=== PATIENT | female | born 1940 | race Caucasian/White ===

== ENCOUNTER → 2018-06-29 12:56 | Outpatient (CLI) | payer MEDICARE, OTHER, SELFPAY ==
--- NOTE | 2018-06-29 12:58 | BI_ITS ---
MAMMOGRAPHY - BILATERAL SCREENING 3-D SAEED SYNTHESIS REASON FOR EXAM: Female, 77 years old. Bilateral Screening 3-D tomosynthesis PERTINENT HISTORY: 2 left breast biopsies near nipple, negative. Patient complains of tenderness left upper inner quadrant breast for 3 years, marked today with BB. Family breast carcinoma, paternal grandmother approximate age 80. TECHNIQUE: 2-D mammograms and 3-D Saeed synthesis of the breast (s) were performed. CAD was performed. COMPARISON: 06/27/2017 through 04/14/2015. FINDINGS: The breast composition is almost entirely fat. No new asymmetric density, dominant mass, dense spiculated masses, abnormal clustered microcalcifications, architectural distortion, skin thickening or nipple retraction identified. Coarse benign-appearing calcifications. No new abnormality identified with tomosynthesis. There has been no significant change since the prior study. BI/SCREENING MAMM (CAD), BILAT IMPRESSION: No mammographic signs of malignancy. Routine yearly mammograms recommended. ASSESSMENT CATEGORY: BIRADS Category 2: Benign. A letter regarding these results will be sent to the patient by the facility within 30 days. FOLLOW UP RECOMMENDATION: Yearly follow up mammogram recommended. (A) Negative results should not deter biopsy as a palpable lesion should be followed on clinical grounds and biopsy performed if clinically persistent for 3 months or increasing size. Approximately 10% of breast cancers are not detected by mammography. A normal mammogram should not delay biopsy of a clinically suspicious abnormality. . Electronically Signed: Doni Hawley, at 22:37 EDT Tel , Service support ,
== END ==
PROVIDERS: Family Provider Family Medicine; PCP Family Medicine; Visit Provider Family Medicine
DX: Z12.31 Encounter for screening mammogram for malignant neoplasm of breast (principal)
CPT/HCPCS: 77063; 77067

== ENCOUNTER → 2018-08-27 08:26 | Outpatient (CLI) | payer MEDICARE, OTHER, SELFPAY ==
[2018-08-27 12:39] LABS: Absolute Lymphocyte Count 1.68 X10^3/ul (0.83-4.51); Absolute Neutrophil Count 2.1 X10^3/uL (2.0-7.7); Basophil# 0.04 X10^3/uL; Basophil% 0.9 % (0-1); Eosinophil# 0.19 X10^3/uL; Eosinophils% 4.2 % (0-5); Hematocrit 41.6 % (37-47); Hemoglobin 13.8 g/dl (12.0-15.0); Lymphocyte # 1.68 X10^3/ul (4.0); Lymphocyte % 36.9 % (19-41); Mean Corp Hgb Conc 33.2 g/gl (32-36); Mean Corpuscular Hgb 29.9 pg (27.0-32.0); Mean Corpuscular Volume 90.2 fL (81-99); Mean Platelet Vol. 10.4 fl (6.2-12.0); Monocyte# 0.55 X10^3/uL; Monocyte% 12.1 % (0-10); Neutrophil # 2.08 X10^3/uL (2.7-7.7); Neutrophil % 45.7 % (47-70); Platelet Count 195 K/mm3 (150-450); RBC Distribution Width CV 14.1 % (11.6-14.6); RBC Distribution Width SD 46.3 fl (35.1-43.9); Red Blood Count 4.61 M/mm3 (4.2-5.4); White Blood Count 4.6 K/mm3 (4.4-11.0)
[2018-08-27 12:50] LABS: POSITIVE COUNT NO; POSITIVE DIFFERENTIAL NO; POSITIVE MORPHOLOGY NO
[2018-08-27 12:56] LABS: ALB/GLOB Ratio 0.8 RATIO (0.9-2.4); AST(SGOT) 33 U/L (15-37); Alanine Aminotransfer ALT/SGPT 49 U/L (13-56); Albumin, Serum 3.4 g/dL (3.2-5.0); Alkaline Phosphatase 77 U/L (45-117); Anion Gap 6 (5-15); BUN 12 mg/dL (7-18); BUN/Creat Ratio 16.1 RATIO (10-20); Calcium,Total 8.8 mg/dL (8.5-10.1); Chloride 105 mmol/L (98-107); Cholesterol 160 mg/dL (200); Creatinine, Serum 0.74 mg/dL (0.55-1.02); EST Glomerular Filtration Rate 80 mL/min (>60); Est Glom Filt Rate - Afr Amer 97 mL/min (>60); Globulin 4.1 g/dL (2.2-4.2); Glucose 88 mg/dL (74-106); High Density Lipoprotein 45 mg/dL; Potassium 3.8 mmol/L (3.5-5.1); Protein, Total 7.5 g/dL (6.4-8.2); Sodium Level 139 mmol/L (136-145); Triglycerides 183 mg/dL; Very Low Density Lipoprotein 37 mg/dL (5-40)
== END ==
PROVIDERS: Family Provider Family Medicine; PCP Family Medicine; Visit Provider Family Medicine
DX: I10 Essential (primary) hypertension (principal); E78.5 Hyperlipidemia, unspecified
CPT/HCPCS: 36415; 80053; 80061; 85025

== ENCOUNTER → 2019-03-04 | Outpatient (CLI) | payer MEDICARE, OTHER, SELFPAY ==
[2019-03-04 12:53] LABS: Vitamin D,25 Hydroxy 17.9 ng/mL (29.95-100.01)
[2019-03-04 12:55] LABS: ALB/GLOB Ratio 1.1 RATIO (0.9-2.4); AST(SGOT) 24 U/L (15-37); Alanine Aminotransfer ALT/SGPT 36 U/L (13-56); Albumin, Serum 3.9 g/dL (3.2-5.0); Alkaline Phosphatase 79 U/L (45-117); Anion Gap 7 (5-15); BUN 15 mg/dL (7-18); BUN/Creat Ratio 20.1 RATIO (10-20); Calcium,Total 9.1 mg/dL (8.5-10.1); Chloride 103 mmol/L (98-107); Creatinine, Serum 0.75 mg/dL (0.55-1.02); EST Glomerular Filtration Rate 80 mL/min (>60); Est Glom Filt Rate - Afr Amer 97 mL/min (>60); Globulin 3.7 g/dL (2.2-4.2); Glucose 92 mg/dL (74-106); Potassium 3.8 mmol/L (3.5-5.1); Protein, Total 7.6 g/dL (6.4-8.2); Sodium Level 138 mmol/L (136-145)
== END | disposition home or self-care (01) ==
LOC: BFHLAB 08:34
PROVIDERS: Family Provider Family Medicine; PCP Family Medicine; Visit Provider Family Medicine
DX: I10 Essential (primary) hypertension (principal); E78.5 Hyperlipidemia, unspecified; E55.9 Vitamin D deficiency, unspecified
CPT/HCPCS: 36415; 80053; 82306

== ENCOUNTER → 2019-07-19 | Outpatient (CLI) | payer MEDICARE, OTHER, SELFPAY ==
--- NOTE | 2019-07-19 13:18 | BI_ITS ---
MAMMOGRAPHY - BILATERAL SCREENING REASON FOR EXAM: Female, 78 years old. Routine annual screening examination. PERTINENT HISTORY: Grandmother with breast cancer. TECHNIQUE: Digital bilateral breast saeed (3D mammographic acquisition) in the CC and MLO projections. 2-D mediolateral oblique (MLO) and craniocaudad (CC) views of both breasts were obtained. CAD: Full Field Digital Mammography with Computer Added Detection was performed. COMPARISON: Comparison is made with prior examination dated June 29, 2018 and June 27, 2017. FINDINGS: Breast Composition: The breasts are almost entirely fatty. There are no dominant masses or suspicious calcifications. Stable bilateral benign appearing axillary lymph nodes. No other significant abnormalities are identified. There has been no significant change since the prior study. BI/SCREEN MAMM (CAD) W/SAEED BILAT IMPRESSION: Stable bilateral screening mammogram. Yearly follow-up mammogram recommended. (A) ASSESSMENT CATEGORY: BIRADS Category 2: Benign. A letter regarding these results will be sent to the patient by the facility within 30 days. Approximately 10% of breast cancers are not detected by mammography. A normal mammogram should not delay biopsy of a clinically suspicious abnormality. [id number] Electronically Signed: Jw Boateng, at 15:01 EDT , Service support ,
== END | disposition home or self-care (01) ==
LOC: OPBI 13:15
PROVIDERS: Family Provider Family Medicine; PCP Family Medicine; Referring Provider Family Medicine; Visit Provider Family Medicine
DX: Z12.31 Encounter for screening mammogram for malignant neoplasm of breast (principal)
CPT/HCPCS: 77063; 77067

== ENCOUNTER → 2019-09-01 | Outpatient (CLI) | payer MEDICARE, OTHER, SELFPAY ==
[2019-09-01 12:35] LABS: Absolute Lymphocyte Count 1.81 X10^3/uL (0.83-4.51); Absolute Neutrophil Count 4.1 X10^3/uL (2.0-7.7); Basophil# 0.05 X10^3/uL; Basophil% 0.7 % (0-1); Eosinophil# 0.22 X10^3/uL; Eosinophils% 3.3 % (0-5); Hematocrit 44.3 % (37-47); Hemoglobin 14.5 g/dL (12.0-15.0); Lymphocyte # 1.81 X10^3/ul (4.0); Lymphocyte % 26.9 % (19-41); Mean Corp Hgb Conc 32.7 g/dL (32-36); Mean Corpuscular Volume 91.5 fL (81-99); Mean Platelet Vol. 10.2 fl (6.2-12.0); Monocyte# 0.53 X10^3/uL; Monocyte% 7.9 % (0-10); NRBC Flagged by Analyzer 0 % (0-5); Neutrophil # 4.11 X10^3/uL (2.7-7.7); Neutrophil % 60.9 % (47-70); Platelet Count 231 K/mm3 (150-450); RBC Distribution Width CV 13.2 % (11.6-14.6); Red Blood Count 4.84 M/mm3 (4.2-5.4); White Blood Count 6.7 K/mm3 (4.4-11.0)
[2019-09-01 12:50] LABS: AST(SGOT) 21 U/L (15-37); Alanine Aminotransfer ALT/SGPT 35 U/L (13-56); Albumin, Serum 3.7 g/dL (3.2-5.0); Alkaline Phosphatase 81 U/L (45-117); Anion Gap 6 (5-15); BUN 12 mg/dL (7-18); BUN/Creat Ratio 16.1 RATIO (10-20); Chloride 105 mmol/L (98-107); Cholesterol 175 mg/dL (200); Creatinine, Serum 0.75 mg/dL (0.55-1.02); EST Glomerular Filtration Rate 80 mL/min (>60); Est Glom Filt Rate - Afr Amer 96 mL/min (>60); Globulin 3.8 g/dL (2.2-4.2); Glucose 95 mg/dL (74-106); High Density Lipoprotein 52 mg/dL; Protein, Total 7.5 g/dL (6.4-8.2); Sodium Level 139 mmol/L (136-145); Triglycerides 199 mg/dL; Very Low Density Lipoprotein 40 mg/dL (5-40)
[2019-09-01 12:57] LABS: Vitamin D,25 Hydroxy 54.1 ng/mL (29.95-100.01)
== END | disposition home or self-care (01) ==
LOC: BFHLAB 09:01
PROVIDERS: Family Provider Family Medicine; PCP Family Medicine; Visit Provider Family Medicine
DX: I10 Essential (primary) hypertension (principal); E55.9 Vitamin D deficiency, unspecified; E78.5 Hyperlipidemia, unspecified
CPT/HCPCS: 36415; 80053; 80061; 82306; 85025

== ENCOUNTER 2020-01-25 12:59 | Emergency (ER) | payer MEDICARE, OTHER, SELFPAY ==
[2020-01-25] VITALS (7 sets, daily range): BP systolic 102–158; BP diastolic 52–68; PULSE 59–79; RESP 15–100; TEMP 36.8; O2SAT 94–98; BMI 33.5
--- NOTE | 2020-01-25 13:46 | EKG12_ITS ---
Test Reason : CP Blood Pressure : / mmHG Vent. Rate : 075 BPM Atrial Rate : 075 BPM P-R Int : 158 ms QRS Dur : 096 ms QT Int : 384 ms P-R-T Axes : 011 -15 034 degrees QTc Int : 428 ms Normal sinus rhythm Normal ECG Confirmed by DIEGO THACKER ([id number]), writer editor GABRIELLE MARCELO ([id number]) on 01/26/2020 2:28:27 PM Referred By: UG/ES Confirmed By:DIEGO THACKER
--- NOTE | 2020-01-25 13:46 | RAD_ITS ---
STUDY: X-RAY CHEST REASON FOR EXAM: Female, 79 years old. CHEST PAIN TECHNIQUE: Single AP portable view of the chest. COMPARISON: None. FINDINGS: EKG electrodes are seen. The lungs are clear and expanded. There is no demonstrated pleural abnormality. Normal size heart. Normal mediastinum and matthew. Normal visualized pulmonary arteries. Normal visualized aortic arch and descending thoracic aorta. There are diffuse degenerative changes of the visualized thoracic spine. Normal visualized ribs, clavicles, and shoulders. There is no demonstrated abnormality of the visualized soft tissue structures of the upper abdomen. RAD/Chest 1 View (Portable) IMPRESSION: Normal x-ray examination of the chest. Electronically Signed: Jw Boateng, at 14:12 EST , Service support ,
[2020-01-25 13:55] LABS: Absolute Lymphocyte Count 2.57 X10^3/uL (0.83-4.51); Absolute Neutrophil Count 4.9 X10^3/uL (2.0-7.7); Basophil# 0.06 X10^3/uL; Basophil% 0.7 % (0-1); Eosinophil# 0.16 X10^3/uL; Eosinophils% 1.9 % (0-5); Hematocrit 45.4 % (37-47); Hemoglobin 14.9 g/dL (12.0-15.0); Lymphocyte # 2.57 X10^3/ul (4.0); Lymphocyte % 30.7 % (19-41); Mean Corp Hgb Conc 32.8 g/dL (32-36); Mean Corpuscular Hgb 29.6 pg (27.0-32.0); Mean Corpuscular Volume 90.1 fL (81-99); Mean Platelet Vol. 10.1 fl (6.2-12.0); Monocyte% 8.4 % (0-10); NRBC Flagged by Analyzer 0 % (0-5); Neutrophil # 4.85 X10^3/uL (2.7-7.7); Neutrophil % 58.1 % (47-70); Platelet Count 236 K/mm3 (150-450); RBC Distribution Width CV 13.4 % (11.6-14.6); Red Blood Count 5.04 M/mm3 (4.2-5.4); White Blood Count 8.4 K/mm3 (4.4-11.0)
[2020-01-25 14:09] LABS: Anion Gap 5 (5-15); BUN 13 mg/dL (7-18); BUN/Creat Ratio 15.8 RATIO (10-20); Calcium,Total 9.5 mg/dL (8.5-10.1); Chloride 103 mmol/L (98-107); Creatinine, Serum 0.82 mg/dL (0.55-1.02); EST Glomerular Filtration Rate 71 mL/min (>60); Est Glom Filt Rate - Afr Amer 86 mL/min (>60); Glucose 132 mg/dL (74-106); Potassium 3.9 mmol/L (3.5-5.1); Sodium Level 137 mmol/L (136-145)
--- NOTE | 2020-01-25 14:16 | ED.VIS.GEN ---
History of Present Illness Chief Complaint: Chest Pain Informant: Patient Onset: Today, Yesterday Context: Sudden Onset Timing: Continuous - Continuous today, Intermittent - Intermittent Friday night Quality: Heaviness Location: Mid chest Current Severity: Mild Maximum Severity: Moderate Worsened by: Nothing Relieved by: Nothing Associated Symptoms: No associated symptoms Narrative: It is a 79-year-old woman with history of hypertension and hypercholesterolemia who presents with chest heaviness that awoke her from sleep Friday night. Pain lasted for 2 to 3 hours. There is no radiation or associated symptoms. This morning she was awakened from sleep and had constant heavy sensation with no so symptoms or radiation. She states she went up and down steps and did not have shortness of breath or worsening of her pain. She denies black or maroon stool. She denies fever, chills night sweats. She denies back pain. She denies shortness of breath, cough, orthopnea or PND. She has no known history of heart disease. Prior similar symptoms: No Recent Illness/Hospitalization: No - Past Medical History (1) Hypertension Status: Chronic (2) Hypercholesterolemia Status: Chronic Past Medical History - Allergies and Home Meds Allergies/Adverse Reactions: Allergies morphine Allergy (Verified 01/25/20 13:00) Anaphylaxis niacin Allergy (Verified 01/25/20 13:00) Rash procaine HCl [From Novocain] Allergy (Verified 01/25/20 13:00) Anaphylaxis tetracycline Allergy (Verified 01/25/20 13:00) Unknown Primary Care Physician: Jacquie Coleman MD [Primary Care Provider] - Prior records reviewed: Yes Surgical History: noncontributory Lives: Spouse/ Significant Other Smoking Status: Never smoker Alcohol: None Drugs: None Review of Systems General: Denies: Chills, Fever, Malaise, Sweats Eyes: Denies: Visual changes - bilaterally, Blurred Vision - bilaterally ENT: Denies: Rhinorrhea, Sore throat Cardiovascular: Reports: Chest pain. Denies: Palpitations, Heart racing Respiratory: Denies: Dyspnea, Cough, Dyspnea on exertion Gastrointestinal: Denies: Abdominal pain, Nausea, Vomiting, Diarrhea, Melena, Hematochezia Genitourinary: Denies: Dysuria, Hematuria, Frequency Musculoskeletal: Denies: Myalgias, Arthralgias, Neck pain, Back pain, Swelling, Extremity Pain, -, - Skin: Denies: Rash, Wounds Neurological: Denies: Headache, Weakness, Numbness Hematologic: Denies: Easy bruising, Easy bleeding Allergy: Denies: Uticaria Physical Exam Vital Signs/Narrative: Vital Signs Temp Pulse Resp BP Pulse Ox 01/25/20 14:08 75 100 H 124/52 H 94 01/25/20 12:59 98.2 F 73 16 158/68 H 96 Inital Vital Signs reviewed: Yes General: Well nourished, Well developed, No Acute Distress Head: Normocephalic, Atraumatic Eyes: Perrl, EOMI ENT: Moist mucous membranes, No rhinorrhea Neck: Supple, Nontender Cardiovascular: Regular rate, Regular rhythm, No murmurs, Normal S1, Normal S2 Respiratory: No distress, CTA bilaterally, Chest nontender Abdomen: Soft, Nontender, Nondistended, Normal bowel sounds Back: Nontender, Normal Inspection Extremities: Nontender, No edema, - - There is no asymmetry, swelling, discoloration, leg vein distention, palpable cords or tenderness along the distribution of the deep venous system. Skin: Normal color, No rash Neurological: Alert, Oriented x3, Cranial nerves II-XII grossly intact, Normal Strength, Normal Sensation Psychological: Normal affect, Normal Mood Diagnostic/Tx/Re-eval Chest X-Ray - ED: 1 View, Read by ED Physician, Normal, Heart, Lungs, Mediastinum, No Acute Disease Impressions Chest X-Ray 01/25/20 13:46 IMPRESSION: Normal x-ray examination of the chest. Electronically Signed: Jw Kilo, at 14:12 EST , Service support , 01/25/20 13:46 Chest 1 View (Portable) [RAD] Stat Laboratory Results 01/25/20 01/25/20 13:15 13:15 WBC 8.4 RBC 5.04 Hgb 14.9 Hct 45.4 MCV 90.1 MCH 29.6 MCHC 32.8 RDW Std Deviation 44.0 H RDW Coeff of Bob 13.4 Plt Count 236 MPV 10.1 Immature Gran % (Auto) 0.200 Neut % (Auto) 58.1 Lymph % (Auto) 30.7 Sampson % (Auto) 8.4 Eos % (Auto) 1.9 Baso % (Auto) 0.7 Absolute Neuts (auto) 4.9 Absolute Lymphs (auto) 2.57 Nucleated RBC % 0 Sodium 137 Potassium 3.9 Chloride 103 Carbon Dioxide 29.0 Anion Gap 5 BUN 13 Creatinine 0.82 Estim Creat Clear Calc 44.00 Est GFR (MDRD) Af Amer 86 Est GFR (MDRD) Non-Af 71 BUN/Creatinine Ratio 15.8 Glucose 132 H Calcium 9.5 Troponin I < 0.015 Work-up was unremarkable. Patient had no relief or effect with nitroglycerin. She was given GI cocktail. Her symptoms resolved. With 12 hours of pain normal EKG and normal troponin and relief with GI cocktail suspect this is GERD and reason she was awakened from sleep at night. - Medical Decision Making Differential is cardiac versus noncardiac chest pain. This may represent GERD. Also need to consider pulmonary etiology. ED Disposition - Plan for ED Patient: Disposition: Home or Assisted Living Diagnosis: Chest heaviness, GERD (gastroesophageal reflux disease) Prescriptions: Omeprazole 40 mg PO DAILY #30 capsule.dr Transmission Status: Pending to [facility]/pharmacy #[id number] Referrals: Jacquie Coleman MD [Primary Care Provider] - 5-7 Days
[2020-01-25] MEDS: Aspirin 81 MG TAB.CHEW 324 MG PO (14:20)
[2020-01-25] MEDS: Nitroglycerin SL (ED/IMG/CATH) 0.4 MG TABLET SUBLINGUAL ×3 (14:26→14:38)
[2020-01-25] MEDS: Mag Hydrox/Al Hydrox/Simeth 30 ML UDC PO (15:53)
--- NOTE | 2020-01-25 16:37 | ED.DCSUM_ITS ---
- ER Visit Summary Date of Service: 01/25/20 Chief Complaint: [] History of Present Illness: The patient is a 79 F [] Physical Examination: [] Test Results: [] Emergency Department Course and Treatment: [] Treatment Plan: [] Disposition: [] Impression: [] This note was generated with [employer] dictation software. It may contain incorrect words, spelling, and punctuation that were not noted in review of the chart prior to signing ED Disposition - Plan for ED Patient: Disposition: Home or Assisted Living Diagnosis: Chest heaviness, GERD (gastroesophageal reflux disease) Instructions: GERD (Adult) Prescriptions: Omeprazole 40 mg PO DAILY #30 capsule.dr Transmission Status: Received by [facility]/pharmacy #[id number] Referrals: Jacquie Coleman MD [Primary Care Provider] - 5-7 Days
== END 2020-01-25 16:48 | disposition home or self-care (01) ==
PROVIDERS: Emergency Provider Emergency Medicine; PCP Family Medicine
DX: K21.9 Gastro-esophageal reflux disease without esophagitis (principal); R07.89 Other chest pain; E78.00 Pure hypercholesterolemia, unspecified; I10 Essential (primary) hypertension
CPT/HCPCS: 71045; 80048; 84484; 85025; 93005; 99284; A4216

== ENCOUNTER → 2020-09-07 08:36 | Outpatient (CLI) | payer MEDICARE, OTHER, SELFPAY ==
[2020-01-25 12:59] VITALS: BMI 33.5
[2020-09-07 12:27] LABS: Absolute Lymphocyte Count 1.86 X10^3/uL (0.83-4.51); Absolute Neutrophil Count 2.8 X10^3/uL (2.0-7.7); Basophil# 0.04 X10^3/uL; Basophil% 0.7 % (0-1); Eosinophil# 0.31 X10^3/uL; Eosinophils% 5.5 % (0-5); Hematocrit 45.1 % (37-47); Hemoglobin 14.3 g/dL (12.0-15.0); Lymphocyte # 1.86 X10^3/ul (4.0); Lymphocyte % 33.3 % (19-41); Mean Corp Hgb Conc 31.7 g/dL (32-36); Mean Corpuscular Hgb 29.8 pg (27.0-32.0); Mean Platelet Vol. 10.2 fl (6.2-12.0); Monocyte# 0.58 X10^3/uL; Monocyte% 10.4 % (0-10); NRBC Flagged by Analyzer 0 % (0-5); Neutrophil # 2.78 X10^3/uL (2.7-7.7); Neutrophil % 49.7 % (47-70); Platelet Count 242 K/mm3 (150-450); RBC Distribution Width CV 13.6 % (11.6-14.6); RBC Distribution Width SD 47.4 fl (35.1-43.9); White Blood Count 5.6 K/mm3 (4.4-11.0)
[2020-09-07 12:38] LABS: Vitamin D,25 Hydroxy 25.1 ng/mL
[2020-09-07 13:08] LABS: ALB/GLOB Ratio 0.9 RATIO (0.9-2.4); AST(SGOT) 14 U/L (15-37); Alanine Aminotransfer ALT/SGPT 31 U/L (13-56); Albumin, Serum 3.7 g/dL (3.2-5.0); Alkaline Phosphatase 76 U/L (45-117); Anion Gap 5 (5-15); BUN 11 mg/dL (7-18); BUN/Creat Ratio 16.1 RATIO (10-20); Calcium,Total 8.9 mg/dL (8.5-10.1); Chloride 104 mmol/L (98-107); Cholesterol 201 mg/dL (200); Creatinine, Serum 0.68 mg/dL (0.55-1.02); EST Glomerular Filtration Rate 88 mL/min (>60); Est Glom Filt Rate - Afr Amer 106 mL/min (>60); Globulin 3.9 g/dL (2.2-4.2); Glucose 88 mg/dL (74-106); High Density Lipoprotein 57 mg/dL; Potassium 3.6 mmol/L (3.5-5.1); Protein, Total 7.6 g/dL (6.4-8.2); Sodium Level 140 mmol/L (136-145); Triglycerides 226 mg/dL; Very Low Density Lipoprotein 45 mg/dL (5-40)
== END | disposition home or self-care (01) ==
LOC: BFHLAB 08:37
PROVIDERS: PCP Family Medicine; Visit Provider Family Medicine
CPT/HCPCS: 36415; 80053; 80061; 82306; 85025

== ENCOUNTER → 2021-03-19 08:45 | Outpatient (CLI) | payer MEDICARE, OTHER, SELFPAY ==
[2020-01-25 12:59] VITALS: BMI 33.5
[2021-03-19 10:01] LABS: Absolute Lymphocyte Count 1.92 X10^3/uL (0.83-4.51); Basophil# 0.06 X10^3/uL; Eosinophil# 0.29 X10^3/uL; Hematocrit 44.1 % (37-47); Hemoglobin 14.3 g/dL (12.0-15.0); Lymphocyte # 1.92 X10^3/ul (0.83-4.51); Lymphocyte % 32.9 % (19-41); Mean Corp Hgb Conc 32.4 g/dL (32-36); Mean Corpuscular Hgb 29.5 pg (27.0-32.0); Mean Corpuscular Volume 91.1 fL (81-99); Mean Platelet Vol. 10.2 fl (6.2-12.0); Monocyte% 8.6 % (0-10); NRBC Flagged by Analyzer 0 % (0-5); Neutrophil # 3.04 X10^3/uL (2.7-7.7); Neutrophil % 52.2 % (47-70); Platelet Count 243 K/mm3 (150-450); RBC Distribution Width CV 13.7 % (11.6-14.6); RBC Distribution Width SD 46.1 fl (35.1-43.9); Red Blood Count 4.84 M/mm3 (4.2-5.4); White Blood Count 5.8 K/mm3 (4.4-11.0)
[2021-03-19 10:15] LABS: AST(SGOT) 18 U/L (15-37); Alanine Aminotransfer ALT/SGPT 31 U/L (13-56); Albumin, Serum 3.8 g/dL (3.2-5.0); Alkaline Phosphatase 76 U/L (45-117); Anion Gap 7 (5-15); BUN 12 mg/dL (7-18); BUN/Creat Ratio 15.5 RATIO (10-20); Calcium,Total 9.1 mg/dL (8.5-10.1); Chloride 105 mmol/L (98-107); Creatinine, Serum 0.77 mg/dL (0.55-1.02); EST Glomerular Filtration Rate 76 mL/min (>60); Est Glom Filt Rate - Afr Amer 92 mL/min (>60); Globulin 3.7 g/dL (2.2-4.2); Glucose 111 mg/dL (74-106); Potassium 3.7 mmol/L (3.5-5.1); Protein, Total 7.5 g/dL (6.4-8.2); Sodium Level 140 mmol/L (136-145)
[2021-03-19 10:17] LABS: Vitamin D,25 Hydroxy 21.2 ng/mL
== END ==
PROVIDERS: PCP Family Medicine; Referring Provider Family Medicine; Visit Provider Family Medicine
DX: E55.9 Vitamin D deficiency, unspecified (principal); I10 Essential (primary) hypertension; E78.5 Hyperlipidemia, unspecified
CPT/HCPCS: 36415; 80053; 82306; 85025

== ENCOUNTER 2021-12-24 09:52 | Outpatient (CLI) | payer MEDICARE, OTHER, SELFPAY ==
--- NOTE | 2021-12-24 09:56 | ECHOCS_ITS ---
Reason For Study: MURMUR Procedure This was a 2D Doppler, Color Flow transthoracic echocardiogram. The study was technically difficult. Due to body habitus. Contrast injection was performed. Exam performed in department. Left Ventricle Normal LV size. Left ventricular systolic function is normal. The estimated ejection fraction is 60 %. Stage 1 diastolic dysfunction. No regional wall motion abnormalities noted. Right Ventricle Normal RV size. Normal systolic function. Atria Normal left atrium. Normal right atrium. Mitral Valve There is mild mitral annular calcification. Tricuspid Valve Normal tricuspid valve. Mild (1+) tricuspid valve insufficiency. Pulmonary artery systolic pressure is 34 mmHg. Aortic Valve Trisinus/trileaflet aortic valve. Mild diffuse aortic valve thickening. Pulmonic Valve The pulmonic valve is not well visualized. Great Vessels Normal aortic root. The pulmonary artery is normal size. Normal inferior vena cava. Pericardium/Pleural No pericardial effusion. Medication 22 gauge I.V. with prn adaptor inserted into right arm. Diluted definity 2.0ml given slow IV push to enhance endocardial definition. MMode/2D Measurements & Calculations LVIDd: 3.8 cm IVSd: 0.78 cm Ao root diam: 2.8 cm LVIDs: 2.1 cm LVPWd: 0.86 cm RVDd: 3.0 cm FS: 44.7 % LAV(MOD-bp): 53.2 ml LA A4 area: 18.4 cm2 LA dimension(2D): 4.4 cm LAV(MOD-bp) Indexed: 29.5 ml/m2 LAV(MOD-sp2): 53.1 ml LAV(MOD-sp4): 48.3 ml Time Measurements MV dec time: 0.32 sec Doppler Measurements & Calculations MV E max maya: 100.1 cm/sec Ao V2 max: 179.2 cm/sec LV V1 max: 151.3 cm/sec MV A max maya: 133.5 cm/sec Ao max P.8 mmHg LV V1 max P.2 mmHg MV E/A: 0.75 PA V2 max: 105.1 cm/sec TR max maya: 277.7 cm/sec TR max P.8 mmHg ECHO/Echo Complete W/ Contrast Interpretation Summary Normal LV size. Left ventricular systolic function is normal. The estimated ejection fraction is 60 %. Stage 1 diastolic dysfunction. Pulmonary artery systolic pressure is 34 mmHg. Contrast injection was performed. Ordering Physician: Jacquie Coleman Referring Physician: Jacquie Coleman Performed By: Viviane Gay RDCS, RVT
--- NOTE | 2021-12-24 09:56 | ART_ITS ---
Reason For Study: Episodes of loss of leg muscle strength Procedure A bilateral lower extremity continuous wave Doppler with analog waveform analysis and ankle brachial indexes. Left Segmental Pressures Left brachial= 141mmHg. Left posterior tibial artery = 168mmHg. Left dorsalis pedis artery = 156mmHg. Left digit = 118 mmHg. The left dorsalis pedis waveforms are triphasic. The left posterior tibial artery waveforms are triphasic. Right Segmental Pressures Right brachial= 138mmHg. Right posterior tibial artery = 162mmHg. Right dorsalis pedis artery = 158mmHg. Right digit = 121 mmHg. The right dorsalis pedis waveforms are triphasic. The right posterior tibial artery waveforms are triphasic. Indices The right ankle brachial index by the dorsalis pedis is 1.12. The right ankle brachial index by the posterior tibial artery is 1.15. The right digital-brachial index is 0.86. The left ankle brachial index by the dorsalis pedis is 1.11. The left ankle brachial index by the posterior tibial artery is 1.19. The left digital-brachial index is 0.84. VL/Ankle Brachial Index Interpretation Summary Triphasic Doppler waveforms are noted at ankle level bilaterally. Pulse-volume recordings appear satisfactory at ankle and digital level bilaterally. Resting ankle-brachial ind ices are normal bilaterally. Digital-brachial indices are normal bilaterally. There is no evidence of significant arterial occlusive disease in the lower ext remities bilaterally. Ordering Physician: Jacquie Coleman Referring Physician: Jacquie Coleman Performed By: Chandrika Brown RVT
== END 2021-12-24 23:59 | disposition short-term general hospital (02) ==
LOC: CVS 09:53
PROVIDERS: PCP Family Medicine; Referring Provider Family Medicine; Visit Provider Family Medicine
DX: M62.81 Muscle weakness (generalized) (principal); I73.89 Other specified peripheral vascular diseases; R01.1 Cardiac murmur, unspecified
CPT/HCPCS: 93306; 93922; Q9957; A4216; C8929

== ENCOUNTER 2022-01-02 09:22 | Outpatient (CLI) | payer MEDICARE, OTHER, SELFPAY ==
--- NOTE | 2022-01-02 09:35 | BI_ITS ---
MAMMOGRAPHY - BILATERAL DIAGNOSTIC REASON FOR EXAM: Female, 81 years old. Left breast pain. Prior left breast biopsy for Paget''s disease. PERTINENT HISTORY: Grandmother with breast cancer. TECHNIQUE: Digital bilateral breast phil (3D mammographic acquisition) in the CC and MLO projections. 2-D mediolateral oblique (MLO) and craniocaudad (CC) views of both breasts were obtained. CAD: Full Field Digital Mammography with Computer Added Detection was performed. COMPARISON: Comparison is made with prior study dated 07/19/2019 and 06/29/2018. FINDINGS: Breast Composition: The breasts are almost entirely fatty. There are no dominant masses or suspicious calcifications. Stable small benign-appearing bilateral axillary lymph nodes. No other significant abnormalities are identified. There has been no significant change since the prior study. BI/DIAG MAMM W/CAD, BILAT IMPRESSION: Stable bilateral diagnostic mammogram. With the patient''s history of left breast pain, targeted ultrasound is recommended. ASSESSMENT CATEGORY: BIRADS Category 0: Incomplete. Need additional imaging evaluation. A letter regarding these results will be sent to the patient by the facility within 30 days. Approximately 10% of breast cancers are not detected by mammography. A normal mammogram should not delay biopsy of a clinically suspicious abnormality. Electronically Signed: Jw Boateng MD at 10:57 EST ,
--- NOTE | 2022-01-02 09:36 | US_ITS ---
STUDY: ULTRASOUND BREAST - LEFT REASON FOR EXAM: Female, 81 years old. Palpable lump left breast. TECHNIQUE: Axial and longitudinal images of the LEFT breast were performed with a high resolution ultrasound transducer. # OF IMAGES: 53 COMPARISON: Comparison is made with prior mammograms underwent a day. FINDINGS: LEFT Breast: The medial aspect of the left breast was examined by ultrasound. At the 10 o''clock and 11 o''clock position of the breast at 2 cm from nipple, there are 2 adjacent areas of increased echotexture. The larger measures 4 mm x 4 mm x 5 mm. This most likely represents small lipomas. US/Breast Limited Unilateral IMPRESSION: The palpable abnormalities most likely correspond to 2 small lipomas as described. ASSESSMENT CATEGORY: BIRADS Category 2: Benign. A letter regarding these results will be sent to the patient by the facility within 30 days. Electronically Signed: Jw Boateng MD at 11:34 EST ,
== END 2022-01-02 23:59 | disposition home or self-care (01) ==
LOC: OPBI 09:23
PROVIDERS: PCP Family Medicine; Referring Provider Family Medicine; Visit Provider Family Medicine
DX: N64.4 Mastodynia (principal)
CPT/HCPCS: 76642; 77062; 77066; G0279

== ENCOUNTER 2022-03-13 17:51 | Outpatient (CLI) | payer MEDICARE, OTHER, SELFPAY | END 2022-03-13 23:59 | disposition home or self-care (01) | PROVIDERS: PCP Family Medicine; Referring Provider Family Medicine; Visit Provider Family Medicine | DX: R30.0 Dysuria (principal) | CPT/HCPCS: 87086; 87088; 87186 ==

== ENCOUNTER → 2022-07-29 | Outpatient (CLI) | payer MEDICARE, OTHER, SELFPAY ==
[2022-07-29 14:43] LABS: Mucous, Urine 0 SEEN /hpf (<or=2+)
[2022-07-29 15:00] LABS: Color, Urine Yellow (Yellow); Glucose, Dipstick Normal (Normal); Ketone-Dipstick 5 mg/dl (Negative); Leukocyte Esterase-Dipstick 500 /ul (Negative); Nitrite-Dipstick Negative (Negative); Occult Blood-Urine 250 /ul (Negative); Protein-Dipstick 100 mg/dl (Negative); Specific Gravity, Urine 1.025 (1.002-1.030); Urine Bilirubin Dipstick Negative (Negative); Urine Clarity Cloudy (Clear); Urine Urobilinogen Normal (Normal)
[2022-07-29 15:28] LABS: Bacteria 2+ /hpf (None Seen); Red Blood Cells-Urine 50-100 SEEN /hpf (0-5); Squamous Epithelial Cells - UA 0-5 SEEN /hpf (5-10); White Blood Cells >100 SEEN /hpf (0-5)
== END | disposition home or self-care (01) ==
PROVIDERS: PCP Family Medicine; Visit Provider Physician Assistant Surgical
DX: R30.9 Painful micturition, unspecified (principal)
CPT/HCPCS: 81001; 87077; 87086; 87088; 87186

== ENCOUNTER → 2022-09-17 | Outpatient (CLI) | payer MEDICARE, OTHER, SELFPAY ==
[2022-09-17 12:19] LABS: Absolute Lymphocyte Count 2.49 X10^3/uL (0.83-4.51); Absolute Neutrophil Count 3.6 X10^3/uL (2.0-7.7); Basophil# 0.08 X10^3/uL; Basophil% 1.1 % (0-1); Eosinophil# 0.61 X10^3/uL; Eosinophils% 8.1 % (0-5); Hemoglobin 14.9 g/dL (12.0-15.0); Lymphocyte # 2.49 X10^3/ul (0.83-4.51); Lymphocyte % 33.1 % (19-41); Mean Corp Hgb Conc 33.1 g/dL (32-36); Mean Corpuscular Hgb 30.5 pg (27.0-32.0); Mean Corpuscular Volume 92.2 fL (81-99); Mean Platelet Vol. 11.3 fl (6.2-12.0); Monocyte# 0.71 X10^3/uL; Monocyte% 9.4 % (0-10); NRBC Flagged by Analyzer 0 % (0-5); Neutrophil # 3.61 X10^3/uL (2.7-7.7); Neutrophil % 47.9 % (47-70); Platelet Count 235 K/mm3 (150-450); RBC Distribution Width CV 14.1 % (11.6-14.6); RBC Distribution Width SD 48.5 fl (35.1-43.9); Red Blood Count 4.88 M/mm3 (4.2-5.4); White Blood Count 7.5 K/mm3 (4.4-11.0)
[2022-09-17 12:32] LABS: ALB/GLOB Ratio 0.9 RATIO (0.9-2.4); AST(SGOT) 22 U/L (15-37); Alanine Aminotransfer ALT/SGPT 27 U/L (13-56); Albumin, Serum 3.6 g/dL (3.2-5.0); Alkaline Phosphatase 76 U/L (45-117); Anion Gap 5 (5-15); BUN 14 mg/dL (7-18); BUN/Creat Ratio 18.4 RATIO (10-20); Calcium,Total 9.1 mg/dL (8.5-10.1); Chloride 107 mmol/L (98-107); Cholesterol 174 mg/dL (200); Creatinine, Serum 0.76 mg/dL (0.55-1.02); EST Glomerular Filtration Rate 77 mL/min (>60); Est Glom Filt Rate - Afr Amer 94 mL/min (>60); Globulin 3.8 g/dL (2.2-4.2); Glucose 95 mg/dL (74-106); High Density Lipoprotein 52 mg/dL; Potassium 3.7 mmol/L (3.5-5.1); Protein, Total 7.4 g/dL (6.4-8.2); Sodium Level 140 mmol/L (136-145); Triglycerides 188 mg/dL; Very Low Density Lipoprotein 38 mg/dL (5-40)
[2022-09-17 12:37] LABS: Vitamin D,25 Hydroxy 25.5 ng/mL
== END | disposition home or self-care (01) ==
LOC: BFHLAB 08:43
PROVIDERS: PCP Family Medicine; Visit Provider Family Medicine
DX: I10 Essential (primary) hypertension (principal); E55.9 Vitamin D deficiency, unspecified; K21.9 Gastro-esophageal reflux disease without esophagitis; E78.5 Hyperlipidemia, unspecified
CPT/HCPCS: 36415; 80053; 80061; 82306; 85025

== ENCOUNTER → 2023-03-24 | Outpatient (CLI) | payer MEDICARE, OTHER, SELFPAY ==
[2023-03-24 12:32] LABS: Absolute Lymphocyte Count 2.21 X10^3/uL (0.83-4.51); Absolute Neutrophil Count 3.5 X10^3/uL (2.0-7.7); Basophil# 0.04 X10^3/uL; Basophil% 0.6 % (0-1); Eosinophil# 0.24 X10^3/uL; Eosinophils% 3.7 % (0-5); Hematocrit 43.3 % (37-47); Lymphocyte # 2.21 X10^3/ul (0.83-4.51); Lymphocyte % 33.6 % (19-41); Mean Corp Hgb Conc 32.3 g/dL (32-36); Mean Corpuscular Hgb 29.9 pg (27.0-32.0); Mean Corpuscular Volume 92.5 fL (81-99); Mean Platelet Vol. 10.5 fl (6.2-12.0); Monocyte# 0.58 X10^3/uL; Monocyte% 8.8 % (0-10); NRBC Flagged by Analyzer 0 % (0-5); Neutrophil # 3.47 X10^3/uL (2.7-7.7); Neutrophil % 52.8 % (47-70); Platelet Count 245 K/mm3 (150-450); RBC Distribution Width CV 13.5 % (11.6-14.6); RBC Distribution Width SD 46.8 fl (35.1-43.9); Red Blood Count 4.68 M/mm3 (4.2-5.4); White Blood Count 6.6 K/mm3 (4.4-11.0)
[2023-03-24 12:55] LABS: Vitamin D,25 Hydroxy 30.5 ng/mL
[2023-03-24 13:08] LABS: ALB/GLOB Ratio 0.9 RATIO (0.9-2.4); AST(SGOT) 23 U/L (15-37); Alanine Aminotransfer ALT/SGPT 28 U/L (13-56); Albumin, Serum 3.6 g/dL (3.2-5.0); Alkaline Phosphatase 84 U/L (45-117); Anion Gap 6 (5-15); BUN 17 mg/dL (7-18); BUN/Creat Ratio 29.6 RATIO (10-20); Calcium,Total 9.3 mg/dL (8.5-10.1); Chloride 105 mmol/L (98-107); Cholesterol 166 mg/dL (200); Creatinine, Serum 0.57 mg/dL (0.55-1.02); EST Glomerular Filtration Rate 107 mL/min (>60); Est Glom Filt Rate - Afr Amer 129 mL/min (>60); Globulin 4.2 g/dL (2.2-4.2); Glucose 93 mg/dL (74-106); High Density Lipoprotein 49 mg/dL; Potassium 3.9 mmol/L (3.5-5.1); Protein, Total 7.8 g/dL (6.4-8.2); Sodium Level 140 mmol/L (136-145); Triglycerides 182 mg/dL; Very Low Density Lipoprotein 36 mg/dL (5-40)
== END | disposition home or self-care (01) ==
LOC: BFHLAB 08:41
PROVIDERS: PCP Family Medicine; Referring Provider Family Medicine; Visit Provider Family Medicine
DX: I10 Essential (primary) hypertension (principal); E55.9 Vitamin D deficiency, unspecified; K21.9 Gastro-esophageal reflux disease without esophagitis; E78.5 Hyperlipidemia, unspecified
CPT/HCPCS: 36415; 80053; 80061; 82306; 85025

== ENCOUNTER → 2023-09-22 | Outpatient (CLI) | payer MEDICARE, OTHER, SELFPAY ==
[2023-09-22 12:08] LABS: Absolute Lymphocyte Count 2.17 X10^3/uL (0.83-4.51); Absolute Neutrophil Count 2.9 X10^3/uL (2.0-7.7); Basophil# 0.06 X10^3/uL; Eosinophil# 0.21 X10^3/uL; Eosinophils% 3.6 % (0-5); Hematocrit 43.9 % (37-47); Hemoglobin 14.3 g/dL (12.0-15.0); Lymphocyte # 2.17 X10^3/ul (0.83-4.51); Lymphocyte % 37.2 % (19-41); Mean Corp Hgb Conc 32.6 g/dL (32-36); Mean Corpuscular Hgb 29.7 pg (27.0-32.0); Mean Corpuscular Volume 91.3 fL (81-99); Mean Platelet Vol. 10.7 fl (6.2-12.0); Monocyte# 0.51 X10^3/uL; Monocyte% 8.7 % (0-10); NRBC Flagged by Analyzer 0 % (0-5); Neutrophil # 2.87 X10^3/uL (2.7-7.7); Neutrophil % 49.2 % (47-70); Platelet Count 235 K/mm3 (150-450); RBC Distribution Width CV 13.8 % (11.6-14.6); RBC Distribution Width SD 46.8 fl (35.1-43.9); Red Blood Count 4.81 M/mm3 (4.2-5.4); White Blood Count 5.8 K/mm3 (4.4-11.0)
[2023-09-22 13:03] LABS: ALB/GLOB Ratio 0.9 RATIO (0.9-2.4); AST(SGOT) 20 U/L (15-37); Alanine Aminotransfer ALT/SGPT 27 U/L (13-56); Albumin, Serum 3.6 g/dL (3.2-5.0); Alkaline Phosphatase 85 U/L (45-117); Anion Gap 6 (5-15); BUN 13 mg/dL (7-18); BUN/Creat Ratio 16.8 RATIO (10-20); Calcium,Total 9.1 mg/dL (8.5-10.1); Chloride 105 mmol/L (98-107); Cholesterol 179 mg/dL (200); Creatinine, Serum 0.77 mg/dL (0.55-1.02); EST Glomerular Filtration Rate 76 mL/min (>60); Est Glom Filt Rate - Afr Amer 92 mL/min (>60); Globulin 3.8 g/dL (2.2-4.2); Glucose 95 mg/dL (74-106); High Density Lipoprotein 54 mg/dL; Potassium 3.8 mmol/L (3.5-5.1); Protein, Total 7.4 g/dL (6.4-8.2); Sodium Level 139 mmol/L (136-145); Triglycerides 171 mg/dL; Very Low Density Lipoprotein 34 mg/dL (5-40)
[2023-09-22 14:46] LABS: Vitamin D,25 Hydroxy 31.8 ng/mL
== END | disposition home or self-care (01) ==
LOC: BFHLAB 08:43
PROVIDERS: PCP Family Medicine; Referring Provider Family Medicine; Visit Provider Family Medicine
DX: I10 Essential (primary) hypertension (principal); E55.9 Vitamin D deficiency, unspecified; K21.9 Gastro-esophageal reflux disease without esophagitis; E78.5 Hyperlipidemia, unspecified
CPT/HCPCS: 36415; 80053; 80061; 82306; 85025

== ENCOUNTER 2023-11-19 15:58 | Emergency (ER) | payer MEDICARE, OTHER, SELFPAY ==
[2023-11-19 16:01] VITALS: BP 133/99; PULSE 108; RESP 18; TEMP 36.3; O2SAT 100; BMI 30.7
--- NOTE | 2023-11-19 17:35 | ED.VIS.GI ---
HPI <ART Rosenberg - Last Filed: 11/19/23 19:02> HPI - GI History of Present Illness Chief Complaint: GI Bleed Narrative Narrative: 83-year-old female with PMH of HTN, HLD presents with epigastric discomfort that started last evening and then she developed loose black bowel movements overnight approximately 10 times total. She states it is a small volume each time. She has no nausea or vomiting. She denies history of GI bleed. She is taking Bactrim for UTI. No Pepto-Bismol. No history of colonoscopy. She is on aspirin 81 mg, no blood thinners. PFS <ART Rosenberg - Last Filed: 11/19/23 19:02> [facility] Medical History Actinic keratosis Bone fracture Cataracts, bilateral Neoplasm of skin of forearm Neoplasm of skin of right cheek Home Medications amlodipine 10 mg tablet 10 mg PO DAILY 06/24/16 [History Last Taken 01/24/20] aspirin 81 mg chewable tablet 81 mg PO DAILY 06/24/16 [History Last Taken 01/24/20] simvastatin 10 mg tablet 10 mg PO QHS 06/24/16 [History Last Taken 01/24/20] bisoprolol 2.5 mg-hydrochlorothiazide 6.25 mg tablet 1 tab PO DAILY heart 01/25/20 [History Last Taken 01/24/20] naproxen sodium 220 mg tablet 220 mg PO BID pain 01/25/20 [History Last Taken 01/25/20] omeprazole 40 mg capsule,delayed release 40 mg PO DAILY ##30 01/25/20 [Rx Last Taken Unknown] sennosides 8.6 mg tablet 2 tab PO DAILY constipation 01/25/20 [History Last Taken 01/24/20] pantoprazole 40 mg tablet,delayed release (Protonix) 40 mg PO BID 30 days #60 tabs 11/19/23 [Rx Last Taken Unknown] Allergy/AdvReac Type Severity Reaction Status Date / Time morphine Allergy Anaphylaxis Verified 11/19/23 15:59 niacin Allergy Rash Verified 11/19/23 15:59 procaine HCl [From Novocain] Allergy Anaphylaxis Verified 11/19/23 15:59 tetracycline Allergy Unknown Verified 11/19/23 15:59 Family History Father Cancer Hypertension Respiratory disease Mother Diabetes Epilepsy Heart disease Surgical History History of appendectomy History of cataract surgery History of total hysterectomy Social History Smoking Status: Never smoker alcohol intake: never substance use type: does not use additional social history: Does Take Aspirin Does Not Take Ibuprofen ROS <ART Rosenberg - Last Filed: 11/19/23 19:02> ROS ED ROS Narrative Constitutional: Negative for fever, chills, malaise. CVS: Negative for palpitations, chest pain, syncope. Respiratory: Negative for shortness of breath, cough. GI: Positive for abdominal pain, melena. Negative for nausea, vomiting, hematochezia. EXAM <ART Rosenberg - Last Filed: 11/19/23 19:02> Physical Exam Narrative Exam Narrative: CONST: Patient sitting in no acute distress. EYES: Normal inspection. NECK: Normal inspection. RESP: No respiratory distress, CTAB. CVS: Regular rate and rhythm, no murmur, no gallop. ABD: Soft and nontender, no guarding or rebound, nondistended. NITIN: Small nontender nonthrombosed external hemorrhoid, thin black stool in rectal vault. No active bleeding. SKIN: Color normal, no rash, warm, dry, intact. EXTREMITIES: Normal appearance, no pedal edema. NEURO: Oriented x4. PSYCH: Normal affect. Const Vital Signs: 11/19/23 16:01 11/19/23 19:31 11/19/23 19:31 Temperature 97.3 F L Temperature Source Temporal Pulse Rate 108 H 87 87 Respiratory Rate 18 16 16 Blood Pressure 133/99 H 137/66 H 137/66 H Blood Pressure Mean 110 89 89 Pulse Ox 100 96 96 Oxygen Delivery Method Room Air Room Air <Dr. Sebastian Meyer MD - Last Filed: 11/19/23 20:41> Physical Exam Const Vital Signs: 11/19/23 16:01 11/19/23 19:31 11/19/23 19:31 Temperature 97.3 F L Temperature Source Temporal Pulse Rate 108 H 87 87 Respiratory Rate 18 16 16 Blood Pressure 133/99 H 137/66 H 137/66 H Blood Pressure Mean 110 89 89 Pulse Ox 100 96 96 Oxygen Delivery Method Room Air Room Air [facility] <ATR Rosenberg - Last Filed: 11/19/23 19:02> [facility] Narrative Medical decision making narrative: Patient has history of epigastric discomfort and loose melanotic stool. She has history of NSAID use for chronic pain. On aspirin 81 mg. No blood thinners. She appears well and nontoxic. Heart rate 108 with otherwise normal vital signs. She has a normal cardiopulmonary exam. Abdomen is soft and nontender. Rectal exam shows black stool which is Hemoccult positive. Hemoglobin is 11.5 down from 14.32 months ago. BUN is 28, creatinine 0.89. Patient's abdominal exam is benign and she currently has no pain so a CT scan is not indicated. I recommended she be admitted due to her age and anemia but she wants to go home to care for her who has multiple medical problems. I discussed risks and she would like to follow-up outpatient. She was given IV Protonix 80 mg and prescribed Protonix 40 twice daily for home. I told her to stop taking Aleve. I provided Dr. Becerril's phone number for follow-up and I also spoke with him to relay her contact information and case. He was agreeable with this plan. Patient was discharged in stable condition. Lab Data Attestation: I reviewed the patient's lab results. Labs: Laboratory Results - last 24 hr 11/19/23 17:25 WBC 9.6 RBC 3.86 L Hgb 11.5 L Hct 34.5 L MCV 89.4 MCH 29.8 MCHC 33.3 RDW Std Deviation 45.9 H RDW Coeff of Bob 14.2 Plt Count 240 MPV 10.1 Immature Gran % (Auto) 0.300 Neut % (Auto) 56.9 Lymph % (Auto) 32.0 [place] % (Auto) 9.3 Eos % (Auto) 0.9 Baso % (Auto) 0.6 Absolute Neuts (auto) 5.5 Absolute Lymphs (auto) 3.08 Nucleated RBC % 0 Sodium 135 L Potassium 4.1 Chloride 104 Carbon Dioxide 23.0 Anion Gap 8 BUN 28 H Creatinine 0.89 Estim Creat Clear Calc 37.88 Est GFR (MDRD) Af Amer 78 Est GFR (MDRD) Non-Af 65 BUN/Creatinine Ratio 31.6 H Glucose 121 H Calcium 9.3 Total Bilirubin 0.40 AST 20 ALT 27 Alkaline Phosphatase 77 Troponin I High Sens 21 Total Protein 7.4 Albumin 3.6 Globulin 3.8 Albumin/Globulin Ratio 0.9 EKG Initial EKG: Attestation: I personally reviewed and interpreted this EKG as follows: Interpretation: Sinus Rhythm and No Acute Injury Pattern Comments: Normal sinus rhythm at [address] changes <Dr. Sebastian Meyer MD - Last Filed: 11/19/23 20:41> [facility] Lab Data Labs: Laboratory Results - last 24 hr 11/19/23 17:25 WBC 9.6 RBC 3.86 L Hgb 11.5 L Hct 34.5 L MCV 89.4 MCH 29.8 MCHC 33.3 RDW Std Deviation 45.9 H RDW Coeff of Bob 14.2 Plt Count 240 MPV 10.1 Immature Gran % (Auto) 0.300 Neut % (Auto) 56.9 Lymph % (Auto) 32.0 [place] % (Auto) 9.3 Eos % (Auto) 0.9 Baso % (Auto) 0.6 Absolute Neuts (auto) 5.5 Absolute Lymphs (auto) 3.08 Nucleated RBC % 0 Sodium 135 L Potassium 4.1 Chloride 104 Carbon Dioxide 23.0 Anion Gap 8 BUN 28 H Creatinine 0.89 Estim Creat Clear Calc 37.88 Est GFR (MDRD) Af Amer 78 Est GFR (MDRD) Non-Af 65 BUN/Creatinine Ratio 31.6 H Glucose 121 H Calcium 9.3 Total Bilirubin 0.40 AST 20 ALT 27 Alkaline Phosphatase 77 Troponin I High Sens 21 Total Protein 7.4 Albumin 3.6 Globulin 3.8 Albumin/Globulin Ratio 0.9 Management Discussion w/another healthcare provider: [facility] ([facility]) Treatment and Re-Evaluation Comments:: I have personally performed a face to face assessment of the patient and have reviewed the JODI Note. I performed a substantive portion of the visit including all aspects of the following. My garcia findings include: History is patient with melanotic stools for the last day no bright red blood per rectum or nausea/vomiting. She takes NSAIDs twice daily for years for arthritis. No anticoagulants. No abdominal pain. No presyncope or chest discomfort. Exam is well-appearing, abdomen soft nontender nondistended normal bowel sounds present. No tachycardia while at rest here. Medical Decison Making Labs, Hemoccult, type and screen performed but she does not require transfusion right now. I interpreted the labs. Basically consistent with upper GI bleeding but she is not anemic enough to require emergent transfusion. We offered admission for GI consultation but she declines and prefers to go home. I am okay with this. We discussed reasons to return. In the meantime we will put her on twice daily PPI, have her discontinue all NSAIDs, and follow-up closely as an outpatient with GI if she does not require return to the hospital she is comfortable with that plan. Other additions or changes: [None] Discharge Plan Triage Chief Complaint: GI Bleed ED Midlevel Provider: Analy Aguirre ED Provider: Sebastian Meyer Dx/Rx/DC Orders Clinical Impression: Acute upper GI bleed, ABLA (acute blood loss anemia) Instructions: Anemia, ED Upper GI Bleeding (Stable) Prescriptions: New pantoprazole [Protonix] 40 mg tablet,delayed release (DR/EC) 40 mg PO BID 30 Days Qty: 60 0RF No Action simvastatin 10 MG tablet 10 mg PO QHS amlodipine 10 MG tablet 10 mg PO DAILY aspirin 81 MG tablet,chewable 81 mg PO DAILY sennosides 1 TABLET tablet 2 tab PO DAILY bisoprolol-hydrochlorothiazide 1 EACH tablet 1 tab PO DAILY Patient Comments: pt is currently on the 5-6.25 naproxen sodium 220 MG tablet 220 mg PO BID omeprazole 40 MG capsule,delayed release(DR/EC) 40 mg PO DAILY Qty: 30 0RF Primary Care Provider: Jacquie Coleman Referrals: Jacquie Coleman MD [Primary Care Provider] - Rodolfo Becerril DO [Med Staff - Active Staff] - Activity Restrictions/Additional Instructions: Stop taking Aleve. Start taking pantoprazole twice daily. Call the GI office for follow-up appointment if any symptoms worsen come back to the ER. This includes increased volume of black stools, severe abdominal pain, chest pain, shortness of breath, dizziness or lightheadedness. Disposition Disposition: Home, Self Care
[2023-11-19 17:39] LABS: Absolute Lymphocyte Count 3.08 X10^3/uL (0.83-4.51); Absolute Neutrophil Count 5.5 X10^3/uL (2.0-7.7); Basophil# 0.06 X10^3/uL; Basophil% 0.6 % (0-1); Eosinophil# 0.09 X10^3/uL; Eosinophils% 0.9 % (0-5); Hematocrit 34.5 % (37-47); Hemoglobin 11.5 g/dL (12.0-15.0); Lymphocyte # 3.08 X10^3/ul (0.83-4.51); Mean Corp Hgb Conc 33.3 g/dL (32-36); Mean Corpuscular Hgb 29.8 pg (27.0-32.0); Mean Corpuscular Volume 89.4 fL (81-99); Mean Platelet Vol. 10.1 fl (6.2-12.0); Monocyte# 0.89 X10^3/uL; Monocyte% 9.3 % (0-10); NRBC Flagged by Analyzer 0 % (0-5); Neutrophil # 5.46 X10^3/uL (2.7-7.7); Neutrophil % 56.9 % (47-70); Platelet Count 240 K/mm3 (150-450); RBC Distribution Width CV 14.2 % (11.6-14.6); RBC Distribution Width SD 45.9 fl (35.1-43.9); Red Blood Count 3.86 M/mm3 (4.2-5.4); White Blood Count 9.6 K/mm3 (4.4-11.0)
[2023-11-19 17:51] LABS: ALB/GLOB Ratio 0.9 RATIO (0.9-2.4); AST(SGOT) 20 U/L (15-37); Alanine Aminotransfer ALT/SGPT 27 U/L (13-56); Albumin, Serum 3.6 g/dL (3.2-5.0); Alkaline Phosphatase 77 U/L (45-117); Anion Gap 8 (5-15); BUN 28 mg/dL (7-18); BUN/Creat Ratio 31.6 RATIO (10-20); Calcium,Total 9.3 mg/dL (8.5-10.1); Chloride 104 mmol/L (98-107); Creatinine, Serum 0.89 mg/dL (0.55-1.02); EST Glomerular Filtration Rate 65 mL/min (>60); Est Glom Filt Rate - Afr Amer 78 mL/min (>60); Estimated Creatinine Clearance 37.88 ml/min; Globulin 3.8 g/dL (2.2-4.2); Glucose 121 mg/dL (74-106); Potassium 4.1 mmol/L (3.5-5.1); Protein, Total 7.4 g/dL (6.4-8.2); Sodium Level 135 mmol/L (136-145)
[2023-11-19 18:32] LABS: Troponin-I HS 21 pg/mL (3.0-54.0)
[2023-11-19] MEDS: Pantoprazole Sodium 80 MG in 0.9% Normal Saline (50mL Bag) 15 ML 420 MG IV BOLUS (18:54)
[2023-11-19 19:31] VITALS: BP 137/66; PULSE 87; RESP 16; O2SAT 96
== END 2023-11-19 20:45 | disposition home or self-care (01) ==
PROVIDERS: Physician Assistant; Emergency Provider Emergency Medicine; PCP Family Medicine; Visit Provider Emergency Medicine
DX: K92.2 Gastrointestinal hemorrhage, unspecified (principal); E78.5 Hyperlipidemia, unspecified; I10 Essential (primary) hypertension; D62 Acute posthemorrhagic anemia; Z79.82 Long term (current) use of aspirin; Z79.899 Other long term (current) drug therapy
CPT/HCPCS: 80053; 82274; 84484; 85025; 93005; 96365; 99283; J7050; A4216; J3490

== ENCOUNTER → 2023-11-27 | Outpatient (CLI) | payer MEDICARE, OTHER, SELFPAY ==
[2023-11-27 12:36] LABS: Absolute Lymphocyte Count 1.91 X10^3/uL (0.83-4.51); Absolute Neutrophil Count 3.4 X10^3/uL (2.0-7.7); Basophil# 0.04 X10^3/uL; Basophil% 0.7 % (0-1); Eosinophils% 3.3 % (0-5); Hematocrit 31.1 % (37-47); Lymphocyte # 1.91 X10^3/ul (0.83-4.51); Lymphocyte % 31.2 % (19-41); Mean Corp Hgb Conc 32.2 g/dL (32-36); Mean Corpuscular Hgb 30.6 pg (27.0-32.0); Mean Corpuscular Volume 95.1 fL (81-99); Mean Platelet Vol. 10.3 fl (6.2-12.0); Monocyte# 0.51 X10^3/uL; Monocyte% 8.3 % (0-10); NRBC Flagged by Analyzer 0 % (0-5); Neutrophil # 3.43 X10^3/uL (2.7-7.7); Platelet Count 272 K/mm3 (150-450); RBC Distribution Width SD 50.4 fl (35.1-43.9); RET-HE 28.1 pg (30-35); Red Blood Count 3.27 M/mm3 (4.2-5.4); Reticulocyte Count 6.08 % (0.5-1.5); White Blood Count 6.1 K/mm3 (4.4-11.0)
[2023-11-27 12:55] LABS: Anion Gap 6 (5-15); BUN 10 mg/dL (7-18); BUN/Creat Ratio 11.9 RATIO (10-20); Calcium,Total 8.6 mg/dL (8.5-10.1); Chloride 106 mmol/L (98-107); Creatinine, Serum 0.84 mg/dL (0.55-1.02); EST Glomerular Filtration Rate 69 mL/min (>60); Est Glom Filt Rate - Afr Amer 83 mL/min (>60); Glucose 107 mg/dL (74-106); Potassium 3.3 mmol/L (3.5-5.1); Sodium Level 141 mmol/L (136-145)
== END | disposition home or self-care (01) ==
LOC: BFHLAB 10:42
PROVIDERS: PCP Family Medicine; Visit Provider Family Medicine
DX: K92.2 Gastrointestinal hemorrhage, unspecified (principal)
CPT/HCPCS: 36415; 80048; 85025; 85045

== ENCOUNTER → 2024-06-15 | Outpatient (CLI) | payer MEDICARE, OTHER, SELFPAY ==
[2024-06-15 11:54] LABS: Absolute Lymphocyte Count 1.83 X10^3/uL (0.83-4.51); Absolute Neutrophil Count 3.3 X10^3/uL (2.0-7.7); Basophil# 0.04 X10^3/uL; Basophil% 0.7 % (0-1); Eosinophil# 0.16 X10^3/uL; Eosinophils% 2.7 % (0-5); Hematocrit 44.4 % (37-47); Hemoglobin 14.6 g/dL (12.0-15.0); Lymphocyte # 1.83 X10^3/ul (0.83-4.51); Lymphocyte % 31.2 % (19-41); Mean Corp Hgb Conc 32.9 g/dL (32-36); Mean Corpuscular Hgb 30.1 pg (27.0-32.0); Mean Corpuscular Volume 91.5 fL (81-99); Mean Platelet Vol. 10.2 fl (6.2-12.0); Monocyte# 0.53 X10^3/uL; NRBC Flagged by Analyzer 0 % (0-5); Neutrophil # 3.28 X10^3/uL (2.7-7.7); Neutrophil % 56.1 % (47-70); Platelet Count 258 K/mm3 (150-450); RBC Distribution Width CV 13.1 % (11.6-14.6); RBC Distribution Width SD 44.5 fl (35.1-43.9); Red Blood Count 4.85 M/mm3 (4.2-5.4); White Blood Count 5.9 K/mm3 (4.4-11.0)
[2024-06-15 12:13] LABS: Vitamin D,25 Hydroxy 35.1 ng/mL
[2024-06-15 12:24] LABS: ALB/GLOB Ratio 0.9 RATIO (0.9-2.4); AST(SGOT) 25 U/L (15-37); Alanine Aminotransfer ALT/SGPT 28 U/L (13-56); Albumin, Serum 3.7 g/dL (3.2-5.0); Alkaline Phosphatase 93 U/L (45-117); Anion Gap 5 (5-15); BUN 11 mg/dL (7-18); BUN/Creat Ratio 13.6 RATIO (10-20); Calcium,Total 9.5 mg/dL (8.5-10.1); Chloride 106 mmol/L (98-107); Cholesterol 183 mg/dL (200); Creatinine, Serum 0.81 mg/dL (0.55-1.02); EST Glomerular Filtration Rate 72 mL/min (>60); Est Glom Filt Rate - Afr Amer 87 mL/min (>60); Globulin 4.2 g/dL (2.2-4.2); Glucose 95 mg/dL (74-106); High Density Lipoprotein 56 mg/dL; Potassium 3.9 mmol/L (3.5-5.1); Protein, Total 7.9 g/dL (6.4-8.2); Sodium Level 140 mmol/L (136-145); Triglycerides 169 mg/dL; Very Low Density Lipoprotein 34 mg/dL (5-40)
== END | disposition home or self-care (01) ==
LOC: MTLAB 10:07
PROVIDERS: PCP Family Medicine; Referring Provider Family Medicine; Visit Provider Family Medicine
DX: I10 Essential (primary) hypertension (principal); E55.9 Vitamin D deficiency, unspecified; K21.9 Gastro-esophageal reflux disease without esophagitis; E78.5 Hyperlipidemia, unspecified
CPT/HCPCS: 36415; 80053; 80061; 82306; 85025

== ENCOUNTER 2024-12-30 20:12 | Observation (INO) | payer MEDICARE, OTHER, SELFPAY ==
[2024-12-30 20:14] VITALS: PULSE 85
[2024-12-30 20:15] VITALS: BP 131/83; PULSE 150; RESP 18; TEMP 36.4; O2SAT 97; BMI 32.2
[2024-12-30 20:18] VITALS: O2SAT 94
--- NOTE | 2024-12-30 20:18 | EKG12_ITS ---
Test Reason : HEART PALP Blood Pressure : */* mmHG Vent. Rate : 150 BPM Atrial Rate : * BPM P-R Int : * ms QRS Dur : 100 ms QT Int : 306 ms P-R-T Axes : * -40 120 degrees QTcB Int : 483 ms Atrial fibrillation with rapid ventricular response Left axis deviation Possible Anterior infarct , age undetermined ST & T wave abnormality, consider lateral ischemia Abnormal ECG Confirmed by GRAHAM CAN, LUBNA ([id number]), graphic editor KEYSHA RICCI ([id number]) on 01/01/2025 8:06:02 AM Referred By: Dwight Patricia Confirmed By: LUBNA STEVENSON MD
--- NOTE | 2024-12-30 20:40 | RAD_ITS ---
PROCEDURE: CHEST 1 VIEW (PORTABLE) REASON FOR EXAM: Chest pain. TECHNIQUE: Frontal view of the chest. COMPARISON: None. FINDINGS: The cardiac and mediastinal contours are normal. The lungs are clear. RAD/Chest 1 View (Portable) IMPRESSION: NEGATIVE SINGLE VIEW OF THE CHEST. Reading Location: [id number]
[2024-12-30 20:49] LABS: Absolute Lymphocyte Count 3.92 X10^3/uL (0.83-4.51); Absolute Neutrophil Count 3.8 X10^3/uL (2.0-7.7); Basophil# 0.06 X10^3/uL; Basophil% 0.7 % (0-1); Eosinophil# 0.18 X10^3/uL; Eosinophils% 2.1 % (0-5); Hematocrit 44.2 % (37-47); Hemoglobin 14.8 g/dL (12.0-15.0); Lymphocyte # 3.92 X10^3/ul (0.83-4.51); Lymphocyte % 45.2 % (19-41); Mean Corp Hgb Conc 33.5 g/dL (32-36); Mean Corpuscular Volume 89.5 fL (81-99); Mean Platelet Vol. 10.3 fl (6.2-12.0); Monocyte# 0.68 X10^3/uL; Monocyte% 7.8 % (0-10); NRBC Flagged by Analyzer 0 % (0-5); Neutrophil # 3.82 X10^3/uL (2.7-7.7); Platelet Count 241 K/mm3 (150-450); RBC Distribution Width CV 13.7 % (11.6-14.6); RBC Distribution Width SD 44.7 fl (35.1-43.9); Red Blood Count 4.94 M/mm3 (4.2-5.4); White Blood Count 8.7 K/mm3 (4.4-11.0)
--- NOTE | 2024-12-30 21:07 | EDS_ITS ---
HPI History of Present Illness Chief Complaint: Palpitations Narrative Narrative: Chief complaint and HPI: Palpitations. 84-year-old female with past medical history of HTN and HLD presents for evaluation of palpitations and tachycardia. Patient states this morning she developed a headache in which she thought it was secondary to her new glasses. She states that her headache improved but she did not feel right so she checked her heart rate and it was in the 150s. She denies any history of arrhythmia. She denies any shortness of breath, chest pain, abdominal pain, nausea, vomiting. Review of systems: See HPI Medications: As listed on the chart Allergies: As listed on the chart PFSH: Per chart Vital signs: As listed on the chart. Reviewed. Physical exam: Gen: A&O x3, NAD Head: Normocephalic, atraumatic Eyes: No sclera icterus, conjunctiva clear ENT: Moist mucous membranes Neck: Trachea midline, No JVD CV: Tachycardic, irregular rhythm, no murmurs, mild peripheral edema bilaterally Resp: Lungs CTA BL, no w/r/c GI: Abd soft, non-distended, non-tender, no r/r/g Musc: Full ROM, no deformity Skin: Warm, dry Neuro: Alert, oriented, grossly intact, sensation intact Psych: Cooperative, appropriate mood and affect [facility] Medical History (Updated 12/30/24 @ 23:[address] 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 Cataracts, bilateral Home Medications ?Medication ?Instructions ?Recorded ?Last Taken ?Type amlodipine 10 mg tablet 10 mg PO DAILY 06/24/16/01/13 History aspirin 81 mg chewable tablet 81 mg PO DAILY 06/24/16 01/24/20 History simvastatin 10 mg tablet 10 mg PO QHS 06/24/16 History bisoprolol 2.5 1 tab PO DAILY heart 0 01/24/20 History mg-hydrochlorothiazide 6.25 mg tablet pantoprazole 40 mg tablet,delayed 40 mg PO DAILY 12/30 Unknown History release (Protonix) Allergy/AdvReac Type Severity Reaction Status Date / Time morphine Allergy Anaphylaxis Verified 12/30/24 20:17 niacin Allergy Rash Verified 12/30/24 20:17 procaine HCl (From Novocain) Allergy Anaphylaxis Verified 12/30/24 20:17 tetracycline Allergy Unknown Verified 12/30/24 20:17 Family History Father Cancer Hypertension Respiratory disease Mother Diabetes Epilepsy Heart disease Surgical History History of cataract surgery History of appendectomy History of total hysterectomy Social History household members: none Smoking Status: Never smoker alcohol intake: never substance use type: does not use additional social history: Does Take Aspirin Does Not Take Ibuprofen EXAM Physical Exam Const Vital Signs: 12/30/24 20:14 12/30/24 20:15 12/30/24 20:18 Temperature 97.5 F L Temperature Source Temporal Pulse Rate 85 150 H Respiratory Rate 18 Respiratory Effort Respiratory Pattern Blood Pressure 131/83 H Blood Pressure Mean 99 Pulse Ox 97 94 Oxygen Delivery Method Room Air Room Air 12/30/24 21:31 12/30/24 22:00 12/30/24 22:07 Temperature Temperature Source Pulse Rate 112 H 95 Respiratory Rate 16 14 Respiratory Effort Normal Respiratory Pattern Normal Blood Pressure 98/85 H 124/76 H Blood Pressure Mean 89 92 Pulse Ox 95 95 Oxygen Delivery Method Room Air Room Air MDM MDM MDM Narrative Medical decision making narrative: 84-year-old female with past medical history of HTN and HLD presents for evaluation of palpitations and tachycardia. On presentation, patient is in atrial fibrillation with RVR. Heart rate in the 150s. Patient states she has no history of atrial fibrillation. Her blood pressure is stable. Will bolus with Cardizem and reevaluate. Differential diagnosis includes but is not limited to atrial fibrillation with RVR, electrolyte abnormality, hyperthyroidism, ACS, PE, CHF, anemia. Cardiac workup ordered. CBC without leukocytosis or anemia. Little BMP without significant electrolyte abnormality or DEMETRI. Magnesium level unremarkable. Troponin unremarkable. TSH elevated at 4.410. Will get free T4. Free T4 normal. D-dimer elevated at 0.98 therefore cannot rule out PE. CTA ordered. CTA negative for PE. CTA shows diffuse ground glass opacities which may represent edema or infection. I suspect that this is secondary to edema as patient is not endorsing any infectious type symptoms. Her BNP is elevated at 379.8. Patient's [id number] score is 3. She will need anticoagulation. Eliquis ordered. On reevaluation patient is in sinus bradycardia with a heart rate in the 50s. No acute ischemic changes. Patient will warrant admission for further cardiac workup. She confirmed understand the plan. Patient was admitted to the hospitalist service. EKG: Interpreted by me/EM physician: EKG shows atrial fibrillation with RVR. Nonspecific ST changes may be secondary to rate. Heart rate 150. EKG after Cardizem shows sinus bradycardia without any acute ischemic changes. Heart rate 55. Diagnostic: Interpreted by me/EM physician: Chest x-ray without pneumonia, effusion, cardiomegaly, pneumothorax 20 minutes of critical care time utilized in managing the patient. This is due to high probability of and deterioration of the patient based on the patient's condition and excludes any separately billable procedures. Impression: 1. New onset atrial fibrillation with RVR, converted to sinus bradycardia with Cardizem 2. Subclinical hypothyroidism Lab Data Labs: Laboratory Results - last 24 hr 12/30/24 20:30 WBC 8.7 RBC 4.94 Hgb 14.8 Hct 44.2 MCV 89.5 MCH 30.0 MCHC 33.5 RDW Std Deviation 44.7 H RDW Coeff of Bob 13.7 Plt Count 241 MPV 10.3 Immature Gran % (Auto) 0.200 Neut % (Auto) 44.0 L Lymph % (Auto) 45.2 H [place] % (Auto) 7.8 Eos % (Auto) 2.1 Baso % (Auto) 0.7 Absolute Neuts (auto) 3.8 Absolute Lymphs (auto) 3.92 Nucleated RBC % 0 PT 12.8 INR 0.9 APTT 25.3 D-Dimer Quant (PE/DVT) 0.96 H* Sodium 138 Potassium 4.6 Chloride 106 Carbon Dioxide 24.0 Anion Gap 8 BUN 14 Creatinine 0.97 Estim Creat Clear Calc 42.31 Est GFR (MDRD) Af Amer 70 Est GFR (MDRD) Non-Af 58 L BUN/Creatinine Ratio 14.4 Glucose 143 H Calcium 9.5 Magnesium 2.2 Troponin I High Sens 17 B-Natriuretic Peptide 379.8 H TSH 4.410 H Free T4 0.85 Radiography Diagnostic Testing: Clinical Impression(s) from Imaging Studies Chest X-Ray 12/30/24 20:40 IMPRESSION: NEGATIVE SINGLE VIEW OF THE CHEST. Reading Location: [facility] Chest CTA 12/30/24 22:11 IMPRESSION: No pulmonary embolism. Diffuse ground-glass opacities which may represent edema or infection. Enlarged mediastinal lymph nodes. One or more dose reduction techniques were used (e.g., Automated exposure control, adjustment of the mA and/or kV according to patient size, use of iterative reconstruction technique). Reading Location: [facility] Discharge Plan Triage Chief Complaint: Palpitations ED Provider: Dwight Patricia Dx/Rx/DC Orders Prescriptions: No Action simvastatin 10 MG tablet 10 mg PO QHS amlodipine 10 MG tablet 10 mg PO DAILY aspirin 81 MG tablet,chewable 81 mg PO DAILY bisoprolol-hydrochlorothiazide 1 EACH tablet 1 tab PO DAILY Patient Comments: pt is currently on the 5-6.25 pantoprazole [Protonix] 40 mg tablet,delayed release (DR/EC) 40 mg PO DAILY Primary Care Provider: Jacquie Coleman Referrals: Jacquie Coleman MD [Primary Care Provider] - Print Language: Kazakh
[2024-12-30 21:16] LABS: Anion Gap 8 (5-15); BUN 14 mg/dL (7-18); BUN/Creat Ratio 14.4 RATIO (10-20); Calcium,Total 9.5 mg/dL (8.5-10.1); Chloride 106 mmol/L (98-107); Creatinine, Serum 0.97 mg/dL (0.55-1.02); EST Glomerular Filtration Rate 58 mL/min (>60); Est Glom Filt Rate - Afr Amer 70 mL/min (>60); Estimated Creatinine Clearance 42.31 ml/min; Glucose 143 mg/dL (74-106); Potassium 4.6 mmol/L (3.5-5.1); Sodium Level 138 mmol/L (136-145); Troponin-I HS (w/2H Reflex) 17 pg/mL (3.0-54.0)
[2024-12-30] MEDS: dilTIAZem 25 MG/5 ML Vial 10 MG IV BOLUS (21:28)
[2024-12-30] MEDS: 0.9% Normal Saline (1000mL) 1,000 ML 999 ML IV (21:28)
[2024-12-30 21:31] VITALS: BP 98/85; PULSE 112; RESP 16; O2SAT 95
[2024-12-30 21:58] LABS: Magnesium 2.2 mg/dL (1.6-2.6)
[2024-12-30 22:00] VITALS: BP 124/76; PULSE 95; RESP 14; O2SAT 95
[2024-12-30 22:02] LABS: International Normalized Ratio 0.9; Prothrombin Time (Protime)PT. 12.8 SECONDS (11.7-14.9)
[2024-12-30 22:03] LABS: Partial Thromboplast Time 25.3 Seconds (24.1-36.2)
--- NOTE | 2024-12-30 22:11 | CT_ITS ---
PROCEDURE: CTA CHEST W/WO CONTRAST REASON FOR EXAM: Tachycardia. TECHNIQUE: CTA imaging of the chest with intravenous contrast. 3D reconstructions. COMPARISON: None. FINDINGS: Hardware: None. Lymph nodes: Enlarged mediastinal lymph nodes. For instance, a right paratracheal lymph node measures 1.2 cm. Heart: Normal heart size. No pericardial effusion. RV/LV Diameter Ratio: N/A Thoracic Aorta: No thoracic aortic aneurysm or dissection. Pulmonary Vessels: No evidence of acute pulmonary emboli through the major subsegmental branches. Most Proximal Level of Embolus (if embolus present): N/A Lungs and Airways: Diffuse ground-glass opacities throughout the lungs which may represent edema or infection. Pleura: No pleural effusion. No pneumothorax. Upper Abdomen: Right kidney upper pole simple cysts. Bones: Degenerative changes of the spine. CT/CTA Chest W/WO Contrast IMPRESSION: No pulmonary embolism. Diffuse ground-glass opacities which may represent edema or infection. Enlarged mediastinal lymph nodes. One or more dose reduction techniques were used (e.g., Automated exposure contr ol, adjustment of the mA and/or kV according to patient size, use of iterative reconstruction technique). Reading Location: [id number]
[2024-12-30 22:14] LABS: D-Dimer Quantitative (DVT/PE) 0.96 FEU/ug/m (0.27-0.49)
[2024-12-30 22:18] LABS: BNP,B-Type NATRIURETIC PEPTIDE 379.8 pg/mL (0-100)
[2024-12-30 22:38] LABS: Reflex Troponin-HS? (from REC) Y; T4 Free Direct 0.85 ng/dL (0.76-1.46)
--- NOTE | 2024-12-30 23:07 | PCM.HP.STD ---
HPI - General General Date of Admission: 12/30/24 Date of Service: 12/30/24 Chief Complaint: Headache, irregular heart rate, palpitations. HPI Narrative The patient is an 84-year-old female with past medical history obesity, CKD stage III per GFR trending unclear subtype, GERD, hypertension, hyperlipidemia who presents to the [facility] ED on 12/30/2024 with onset on the a.m. on day of presentation mild headache which she felt possibly secondary to her glasses that are new however it improved but she felt off and checked her heart rate noted to be the rate at 150 with sensation of mild palpitations but no associated chest discomfort, dyspnea, lightheadedness given this was persistent eventually prompted ED evaluation to be cautious. 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 In the ED patient ministered 1 L normal saline and diltiazem 10 mg IV bolus x 1. In the ED patient following diltiazem bolus converted with confirmation EKG demonstrating sinus rhythm with no acute evidence of ischemia. 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 Cataracts, bilateral Home Medications ?Medication ?Instructions ?Recorded ?Last Taken ?Type amlodipine 10 mg tablet 10 mg PO DAILY 06/24/16 01/24/20 History aspirin 81 mg chewable tablet 81 mg PO DAILY 06/24/16 01/24/20 History simvastatin 10 mg tablet 10 mg PO QHS 06/24/16 01/24/20 History bisoprolol 2.5 1 tab PO DAILY heart 01/25/20 01/24/20 History mg-hydrochlorothiazide 6.25 mg tablet pantoprazole 40 mg tablet,delayed 40 mg PO DAILY 12/30/24 Unknown History release (Protonix) sennosides 8.6 mg tablet (Senokot) 8.6 mg PO DAILY 12/31/24 Unknown History Allergy/AdvReac Type Severity Reaction Status Date / Time morphine Allergy Anaphylaxis Verified 12/30/24 20:17 niacin Allergy Rash Verified 12/30/24 20:17 procaine HCl (From Novocain) Allergy Anaphylaxis Verified 12/30/24 20:17 tetracycline Allergy Unknown Verified 12/30/24 20:17 Family History Father Cancer Hypertension Respiratory disease Mother Diabetes Epilepsy Heart disease Surgical History History of cataract surgery History of appendectomy History of total hysterectomy Social History household members: none Smoking Status: Never smoker alcohol intake: never substance use type: does not use additional social history: Does Take Aspirin Does Not Take Ibuprofen ROS ROS Narrative Admission Review of Systems: CONSTITUTIONAL: No weight loss, fever, chills, + weakness or fatigue. HEENT: + Mild headache. Eyes: No visual loss, blurred vision, double vision or yellow sclerae. Ears, Nose, Throat: No hearing loss, sneezing, congestion, runny nose or sore throat. SKIN: No rash or itching, lesions, wounds. CARDIOVASCULAR: + Palpitations. No chest pain, chest pressure or chest discomfort, palpitations, orthopnea, syncopal events. RESPIRATORY: No shortness of breath, cough or sputum, wheezing, hemoptysis. GASTROINTESTINAL: No anorexia, nausea, vomiting or diarrhea, abdominal pain, melena, BRBPR. GENITOURINARY: No dysuria, frequency, urgency or retention. NEUROLOGICAL: + Mild headache. No dizziness, syncope, paralysis, ataxia, numbness or tingling in the extremities, focal weakness, change in bowel or bladder control, seizure. MUSCULOSKELETAL: + muscle, back pain, joint pain or stiffness. HEMATOLOGIC: No anemia, bleeding or bruising. LYMPHATICS: No enlarged nodes. No history of splenectomy. PSYCHIATRIC: No history of depression or anxiety. ENDOCRINOLOGIC: No reports of sweating, cold or heat intolerance. No polyuria or polydipsia. ALLERGIES: + History of anaphylaxis. Vital Signs Vital Signs Vital Signs: 12/30/24 20:14 12/30/24 20:15 12/30/24 20:18 Temperature 97.5 F L Temperature Source Temporal Pulse Rate 85 150 H Respiratory Rate 18 Respiratory Effort Respiratory Pattern Blood Pressure 131/83 H Blood Pressure Mean 99 Pulse Ox 97 94 Oxygen Delivery Method Room Air Room Air 12/30/24 21:31 12/30/24 22:00 12/30/24 22:07 Temperature Temperature Source Pulse Rate 112 H 95 Respiratory Rate 16 14 Respiratory Effort Normal Respiratory Pattern Normal Blood Pressure 98/85 H 124/76 H Blood Pressure Mean 89 92 Pulse Ox 95 95 Oxygen Delivery Method Room Air Room Air Weight Weight: 176 lb 7 oz Body Mass Index (BMI) 32.2 Physical Exam Narrative Physical Examination: General: Awake, alert, oriented x 3 and cooperative, seated upright in the ED bed in no apparent distress. Skin: Normal color, normal turgor, no icterus, no cyanosis. HEENT: AT/NC, EOMI, PERRLA, MMM, no carotid bruits or JVD noted. Lungs: Mild diminished, greater bases, appropriate effort, no rales, ronchi or wheezing. Heart: Converted, currently regular rate and rhythm; no gallop, rub audible. Abdomen: Soft, obese, NTTP, ND, normal BS, no appreciated HSM. Extremities: No cyanosis, no clubbing, mild ankle bilateral nonpitting edema. Neurological: Patient awake, alert, oriented as noted, cognitive function intact; pupils equally reactive to light and accommodation, cranial nerves grossly normal, moving all 4 extremities, no focal deficits, strength preserved. Psychiatric: Affect appears mildly fatigued otherwise normal, no acute evidence of depressive or anxiety feelings. Results Lab / Micro Data 12/30/24 20:30 12/30/24 20:30 Labs: Laboratory Results - last 24 hr 12/30/24 20:30: WBC 8.7, RBC 4.94, Hgb 14.8, Hct 44.2, MCV 89.5, MCH 30.0, MCHC 33.5, RDW Std Deviation 44.7 H, RDW Coeff of Bob 13.7, Plt Count 241, MPV 10.3, Immature Gran % (Auto) 0.200, Neut % (Auto) 44.0 L, Lymph % (Auto) 45.2 H, [place] % (Auto) 7.8, Eos % (Auto) 2.1, Baso % (Auto) 0.7, Absolute Neuts (auto) 3.8, Absolute Lymphs (auto) 3.92, Nucleated RBC % 0, PT 12.8, INR 0.9, APTT 25.3, D-Dimer Quant (PE/DVT) 0.96 H*, Sodium 138, Potassium 4.6, Chloride 106, Carbon Dioxide 24.0, Anion Gap 8, BUN 14, Creatinine 0.97, Estim Creat Clear Calc 42.31, Est GFR (MDRD) Af Amer 70, Est GFR (MDRD) Non-Af 58 L, BUN/Creatinine Ratio 14.4, Glucose 143 H, Calcium 9.5, Magnesium 2.2, Troponin I High Sens 17, B-Natriuretic Peptide 379.8 H, TSH 4.410 H, Free T4 0.85 Imaging Radiology Impression Chest X-Ray 12/30/24 20:40 IMPRESSION: NEGATIVE SINGLE VIEW OF THE CHEST. Reading Location: [facility] Chest CTA 12/30/24 22:11 IMPRESSION: No pulmonary embolism. Diffuse ground-glass opacities which may represent edema or infection. Enlarged mediastinal lymph nodes. One or more dose reduction techniques were used (e.g., Automated exposure control, adjustment of the mA and/or kV according to patient size, use of iterative reconstruction technique). Reading Location: [facility] Assessment & Plan Assessment/Plan (1) Atrial fibrillation with RVR: PLAN: Plan The patient is an 84-year-old female with past medical history obesity, CKD stage III per GFR trending unclear subtype, GERD, hypertension, hyperlipidemia who presents to the [facility] ED on 12/30/2024 with onset on the a.m. on day of presentation mild headache which she felt possibly secondary to her glasses that are new however it improved but she felt off and checked her heart rate noted to be the rate at 150 with sensation of mild palpitations but no associated chest discomfort, dyspnea, lightheadedness given this was persistent eventually prompted ED evaluation to be cautious. #1. Paroxsymal atrial fibrillation w/ RVR, new onset: EKG in ED w/ atrial fibrillation w/ RVR. Patient administered Cardizem bolus in ED. Will admit to PCU, maintain on telemetry, obtain cardiac enzyme serial set, obtain magnesium level, obtain ECHO as last noted 12/24/2021 with normal LV size, LV systolic function normal, EF 60%, stage I diastolic dysfunction, PASP 34 mmHg noted at that time, magnesium 2.2, TSH 4.410 with free T4 0.85 CHADs scoring appropriate for anticoagulation start at this time. Will initiate Eliquis therapy. Following low-dose Cardizem bolus patient with decreased BP 98/85 with recovery following. Will add lower dose oral cardizem and continue to monitor given notable response with conversion to SR following. #2. Hyperglycemia, mild: Admission glucose 143, no diabetic history, possibly stress response, if continued elevation upon repeat level in a.m. investigate further. #3. Incidentally noted diffuse ground-glass opacities on CTPA: Only mildly elevated BNP but in the setting of RVR of unclear duration, currently 95% on room air, will obtain procalcitonin, full respiratory viral panel to be cautious and avoid any aggressive hydration. #4. Subclinical hypothyroidism: Admission TSH 4.410, free T40.85, given current presentation unclear of underlying infectious process thus would recommend continue to monitor and repeat thyroid function studies outpatient at follow-up with PCP. #5. Hypertension: Patient normally on amlodipine as well as bisoprolol/hydrochlorothiazide however given presentation will prioritize Cardizem and hold these other agents in the interim, PRN hydralazine. #6. Hyperlipidemia: Continue patient on statin therapy. #7. GERD: Will continue patient on PPI. #8. Chronic Kidney Disease Stage III per GFR trending, unclear subtype: Admission BUN/Cr 14/0.97, GFR 58, baseline renal function 0.6-0.8 primarily, repeat BMP in AM. #9. Obesity: Weight loss and lifestyle changes encouraged. #10. DVT prophylaxis: Eliquis will be initiated as noted. #11. CODE status: Patient HCPOA are her two children and living will is currently in place. Discussed CODE status at length including difference between FULL code, DNR-CCA and DNR-CC status. Following discussions about the differences in these status, requested DNR-CCA, no intubation. Examples were discussed including if her heart were still beating but she has respiratory distress/stopped breathing and she confirmed she does not want intubated either. Advanced Care Planning Face to Face Time: 16 minutes. Charges/Coding Visit Charges Inpatient E&M: 47354 Init Hosp L3 Procedures Hospitalists Procedures: 50772 Advncd Care Plan 30 Min
[2024-12-30 23:17] VITALS: BP 110/64; PULSE 56; RESP 17; TEMP 37.2; O2SAT 96
[2024-12-30 23:20] LABS: Troponin-I HS 29 pg/mL (3.0-54.0)
--- NOTE | 2024-12-30 23:29 | EKG12_ITS ---
Test Reason : repeat ekg Blood Pressure : */* mmHG Vent. Rate : 55 BPM Atrial Rate : 55 BPM P-R Int : 164 ms QRS Dur : 110 ms QT Int : 442 ms P-R-T Axes : 56 -35 41 degrees QTcB Int : 422 ms Sinus bradycardia Left axis deviation Minimal voltage criteria for LVH, may be normal variant ( Grasston product ) Abnormal ECG Confirmed by GRAHAM CAN, LUBNA ([id number]), development editor KEYSHA RICCI ([id number]) on 01/01/2025 8:06:11 AM Referred By: Dwight Patricia Confirmed By: LUBNA STEVENSON MD
[2024-12-30] MEDS: APIXABAN 5 MG TABLET PO (23:47)
--- NOTE | 2024-12-31 00:10 | ECHOD_ITS ---
Reason For Study: ATRIAL FIBRILLATION Procedure This was a 2D Doppler, Color Flow transthoracic echocardiogram. The study was technically difficult. Exam performed portable in patient room. Left Ventricle Normal left ventricle. Left ventricular systolic function is normal. The left ventricular ejection fraction is 70 %. Stage 1 diastolic dysfunction. No regional wall motion abnormalities noted. Right Ventricle Normal RV size. Normal systolic function. Atria The left atrium is mildly enlarged. Normal right atrium. Mitral Valve There is mild to moderate mitral annular calcification. Tricuspid Valve Normal tricuspid valve. Mild (1+) tricuspid valve insufficiency. Pulmonary artery systolic pressure is 30 mmHg. Aortic Valve Trisinus/trileaflet aortic valve. Mild focal aortic valve calcification. Pulmonic Valve Normal pulmonic valve. Great Vessels Calcified aortic root. The pulmonary artery is normal size. Inferior vena cava collapse with respiration. Pericardium/Pleural No pericardial effusion. MMode/2D Measurements & Calculations LVIDd: 4.4 cm IVSd: 1.1 cm LVOT diam: 1.9 cm LVIDs: 2.2 cm LVPWd: 1.0 cm LVOT area: 2.9 cm2 RVDd: 3.8 cm FS: 51.1 % _ asc Aorta Diam: 2.8 cm LAV(MOD-bp): 63.6 ml LVAd ap4: 11.1 cm2 LAV(MOD-bp) Indexed: 35.5 ml/m2 LVLd ap4: 5.0 cm LAV(MOD-sp2): 56.9 ml EDV(MOD- sp4): 21.6 ml LAV(MOD-sp4): 68.3 ml EDV(sp4- el): 20.9 ml LVAs ap4: 5.3 cm2 LVLs ap4: 3.9 cm ESV(MOD- sp4): 5.9 ml ESV(sp4- el): 6.1 ml EF(MOD- sp4): 72.5 % EF(sp4- el): 71.0 % _ LVAd ap2: 10.5 cm2 SV(MOD-sp4): 15.7 ml SV(MOD- sp2): 13.6 ml LVLd ap2: 5.0 cm SI(MOD-sp4): 8.7 ml/m2 SI(MOD- sp2): 7.6 ml/m2 EDV(MOD-sp2): 19.2 ml EDV(sp2-el): 18.7 ml LVAs ap2: 5.4 cm2 LVLs ap2: 4.5 cm ESV(MOD-sp2): 5.6 ml ESV(sp2-el): 5.6 ml EF(MOD-sp2): 70.7 % _ SV(sp4-el): 14.8 ml Ao sinus diam: 3.[address] Junction: 2.3 cm _ LA dimension(2D): 3.9 cm LA A4 area: 22.5 cm2 RA A4 area: 13.2 cm2 _ TAPSE: 1.7 cm Time Measurements MV dec time: 0.29 sec Doppler Measurements & Calculations MV E max jarod: 97.7 cm/sec Lat Peak E' Jarod: 8.4 cm/sec Med Peak E' Jarod: 6.6 cm/sec MV A max jarod: 113.4 cm/sec E/E' lat: 11.7 E/E' med: 14.8 MV E/A: 0.86 _ MV V2 max: 127.0 cm/sec MV dec slope: 334.2 cm/sec2 Ao V2 max: 135.3 cm/sec MV max P.4 mmHg Ao max P.3 mmHg MV V2 mean: 81.0 cm/sec Ao V2 mean: 91.0 cm/sec MV mean P.9 mmHg Ao mean P.7 mmHg MV V2 VTI: 34.9 cm Ao V2 VTI: 29.1 cm MVA(VTI): 2.6 cm2 AV (velocity ratio): 1.1 CHENCHO(I,D): 3.1 cm2 CHENCHO(V,D): 2.9 cm2 _ LV V1 max: 133.1 cm/sec SV(LVOT): 90.3 ml PA V2 max: 72.0 cm/sec LV V1 max P.1 mmHg LV V1 mean P.9 mmHg LV V1 mean: 93.6 cm/sec LV V1 VTI: 30.7 cm _ TR max jarod: 250.6 cm/sec TR max P.1 mmHg ECHO/Echo Complete Interpretation Summary Normal left ventricle. Left ventricular systolic function is normal. The left ventricular ejection fraction is 70 %. The left atrium is mildly enlarged. Stage 1 diastolic dysfunction. There is mild to moderate mitral annular calcification. Pulmonary artery systolic pressure is 30 mmHg. Ordering Physician: Edda Langston Referring Physician: Dwight Patricia Performed By: Jessi Trejo RDCS
[2024-12-31 00:13] VITALS: BMI 31.4
[2024-12-31 00:36] VITALS: BP 146/63; PULSE 58; RESP 18; TEMP 36.4; O2SAT 97
[2024-12-31 03:07] LABS: Absolute Lymphocyte Count 2.07 X10^3/uL (0.83-4.51); Absolute Neutrophil Count 3.6 X10^3/uL (2.0-7.7); Basophil# 0.05 X10^3/uL; Basophil% 0.8 % (0-1); Eosinophil# 0.13 X10^3/uL; Hematocrit 39.8 % (37-47); Hemoglobin 13.3 g/dL (12.0-15.0); Lymphocyte # 2.07 X10^3/ul (0.83-4.51); Lymphocyte % 32.1 % (19-41); Mean Corp Hgb Conc 33.4 g/dL (32-36); Mean Corpuscular Volume 89.6 fL (81-99); Monocyte# 0.53 X10^3/uL; Monocyte% 8.2 % (0-10); NRBC Flagged by Analyzer 0 % (0-5); Neutrophil # 3.64 X10^3/uL (2.7-7.7); Neutrophil % 56.6 % (47-70); Platelet Count 214 K/mm3 (150-450); RBC Distribution Width SD 44.9 fl (35.1-43.9); Red Blood Count 4.44 M/mm3 (4.2-5.4); White Blood Count 6.4 K/mm3 (4.4-11.0)
[2024-12-31 03:08] LABS: Mean Platelet Vol. 10.3 fl (6.2-12.0); RBC Distribution Width CV 13.7 % (11.6-14.6)
[2024-12-31 03:18] LABS: Troponin-I HS 31 pg/mL (3.0-54.0)
[2024-12-31 03:24] LABS: ALB/GLOB Ratio 0.8 RATIO (0.9-2.4); AST(SGOT) 19 U/L (15-37); Alanine Aminotransfer ALT/SGPT 26 U/L (13-56); Albumin, Serum 3.3 g/dL (3.2-5.0); Alkaline Phosphatase 74 U/L (45-117); Anion Gap 6 (5-15); BUN 13 mg/dL (7-18); BUN/Creat Ratio 16.7 RATIO (10-20); Calcium,Total 8.8 mg/dL (8.5-10.1); Chloride 108 mmol/L (98-107); Creatinine, Serum 0.78 mg/dL (0.55-1.02); EST Glomerular Filtration Rate 75 mL/min (>60); Est Glom Filt Rate - Afr Amer 91 mL/min (>60); Estimated Creatinine Clearance 50.66 ml/min; Glucose 106 mg/dL (74-106); Potassium 3.7 mmol/L (3.5-5.1); Procalcitonin 0.05 ng/mL (0.00-0.09); Protein, Total 7.3 g/dL (6.4-8.2); Sodium Level 139 mmol/L (136-145)
[2024-12-31 06:35] VITALS: BP 125/61; PULSE 59; RESP 16; TEMP 36.7; O2SAT 96
[2024-12-31 08:15] VITALS: BP 131/85; PULSE 62; RESP 16; TEMP 36.6; O2SAT 96
[2024-12-31] MEDS: APIXABAN 5 MG TABLET PO (08:49)
[2024-12-31] MEDS: dilTIAZem CD 120 MG Capsule PO (08:49)
--- NOTE | 2024-12-31 14:13 | CHAPLAIN ---
Type of Pastoral Visit _x__ Initial Visit ___ Follow-up Visit ___ On-call Visit ___ General Patient Visit ___ Spiritual Assessment ___ Family Conference ___ Bereavement ___ Rapid Response ___ Code Blue ___ Other (describe below) Pastoral Care Referral From _x__ Patient ___ Family ___ Nurse ___ Physician ___ Occupational Therapy Department Chair ___ Project Management Professor ___ Other (describe below) Sacrament/Intervention _x__ Active listening ___ Anointing ___ Jain ___ Bereavement ___ Communion _x__ Marilu exploration ___ _x__ Life review _x__ Prayer ___ Reconciliation ___ Sacrament of Sick _x__ Supportive presence ___ Wedding ___ Other (describe below) Pastoral Comments patient reports that she is feeling fine and just waiting for test results to be available; pt has hopes of going home and feels good about that option; pt speaks of her 's and the topic of grief and her coping; pt is involved in a grief group for widows and speaks highly of its importance to her; pt was a nurse and understands the medical process and therefore claims her concerns are few due to her admission; pt has stopped going to a new jewish for her in recent weeks due to health and concerns of being out in public; pt welcomes prayer and expresses gratitude for the spiritual care support
[2024-12-31 14:58] VITALS: BP 121/57; PULSE 65; RESP 16; TEMP 36.7; O2SAT 95
--- NOTE | 2024-12-31 16:21 | CASEMGMT ---
Met with patient to complete ONEAL form. ONEAL form explained to patient who voiced understanding and signed form. Original form placed in pt?s chart and copy provided to patient. Teresa Monreal, Discharge Planning Asst
--- NOTE | 2024-12-31 16:40 | CASEMGMT ---
SUNNY JARA into pt room, pt sitting up in chair with tears coming down face. Asked what is wrong and pt points to pool form. Explained pool form in great detail to pt. Pt worried about bill. Pt calmed down after understanding. 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 She is I in ADL/IADLs. Pt drives and uses a cane at times. Pt denies any homegoing needs. Pt son to transport her home. Updated SUNNY JARA.
--- NOTE | 2024-12-31 17:21 | CASEMGMT ---
Patient dishcarging on [facility], free trial card provided to patient.
--- NOTE | 2024-12-31 17:23 | DCINST_ITS ---
Discharge Instructions Diet Discharge Diet: Low fat / Low cholesterol DC O2, CPAP, BIPAP needs Home O2 Discharge instructions: No Dressing / Incision Discharge Activity: Return to Normal Activity Weight Bearing Status: Weight bearing as tolerated Dressing / Incision Call your doctor if you observe: Fever of 101 or Higher, Shortness of breath, Dizziness, Swelling in the ankles and Chest pain Follow Up Care Test Results: Test results from this visit will be discussed in further detail at your follow- up appointment, if applicable. Discharge Plan Admission Admit Date/Time: 12/30/24 23:21 Primary Reason for Your Visit: new onset afib Attending Provider: Elisabet Fishman Primary Care Provider: Jacquie Coleman Consulting Providers: Edda Langston; Robert Kingsley Instructions Patient Instructions: AFib Dc, AFib Preventing Stroke Discharge Orders/Prescriptions Prescriptions: New diltiazem HCl 120 mg Capsule,Extended Release 24hr 120 mg PO BID Qty: 60 2RF Eliquis 5 mg Tablet 5 mg PO BID Qty: 60 2RF Continued simvastatin 10 MG tablet 10 mg PO QHS pantoprazole [Protonix] 40 mg tablet,delayed release (DR/EC) 40 mg PO DAILY sennosides [Senokot] 8.6 mg tablet 8.6 mg PO DAILY Discontinued amlodipine 10 MG tablet 10 mg PO DAILY aspirin 81 MG tablet,chewable 81 mg PO DAILY bisoprolol-hydrochlorothiazide 1 EACH tablet 1 tab PO DAILY Patient Comments: pt is currently on the 5-6.25 Referrals / Follow Up: Jozef Pena MD [Med Staff - Active Staff] - Within 2 Weeks (see to establish care for afib) Jacquie Coleman MD [Primary Care Provider] - Within 1 Week Disposition Disposition (needs filled in before D/C Order can be placed): Home, Self Care
--- NOTE | 2024-12-31 17:24 | DS.PCM_ITS ---
Providers Date of Admission: 12/30/24 Date of Discharge: 12/31/24 Primary Care Physician: Dr. Jacquie Coleman MD Reason For Visit: PAF RVR Diagnosis Discharge Diagnosis (1) Atrial fibrillation with RVR: Status: Acute Code(s): I48.91 - Unspecified atrial fibrillation Medications at Discharge Home Medications simvastatin 10 mg tablet 10 mg PO QHS 06/24/16 pantoprazole 40 mg tablet,delayed release (Protonix) 40 mg PO DAILY 12/30/24 apixaban 5 mg tablet (Eliquis) 5 mg PO BID #60 tabs 12/31/24 diltiazem HCl 120 mg capsule,extended release 24 hr 120 mg PO BID #60 caps 12/31/24 furosemide 20 mg tablet (Lasix) 20 mg PO DAILY #30 tabs 12/31/24 potassium chloride 10 mEq tablet,extended release 10 meq PO DAILY #30 tabs 12/31/24 sennosides 8.6 mg tablet (Senokot) 8.6 mg PO DAILY 12/31/24 Hospital Course Operations None Procedures 2-D Echocardiogram Summary of Care Provided Minutes Spent on Discharge: 45 Hospital Course: Patient is an 84-year-old female with a past medical history as outlined was admitted through the ED on 12/30/2024 with a complaint of headache and tachycardia. She said she had checked her heart rate and noticed that it was elevated at 150. She had mild palpitations but denied any shortness of breath, lightheadedness or any chest discomfort. Her tachycardia was persistent so she came into the ED. In the ED she was found to be in A-fib with RVR. Her heart rate was 115 in the ED. She was not known to have A-fib. Chest x-ray showed no acute cardiopulmonary findings and CT of the chest showed no evidence of PE and showed diffuse groundglass opacities possibly representing edema versus infection and she had a large mediastinal lymph nodes. TSH was 4.4 with normal free T4. BNP was slightly elevated at 379.8. Magnesium was 2.2 and potassium was within normal limits. She was given a bolus of Cardizem and EKG subsequently showed conversion of A-fib to normal sinus rhythm. She was admitted and managed for new onset A-fib. She was started on p.o. Cardizem 120 mg twice daily. She was placed on Eliquis 5 mg twice daily for stroke prophylaxis. A-fib did not recur during this admission. She had 2D echo which showed EF of 70% with stage I diastolic dysfunction and no regional wall motion abnormalities noted. She remained stable and was discharged home on 12/31/2024 on p.o. Cardizem 120 mg twice daily as well as p.o. Eliquis 5 mg twice daily. She was also discharged on p.o. Lasix 20 mg daily. She is to follow-up with her primary care doctor within 1 to 2 weeks and was referred to cardiology to follow-up for the A-fib on outpatient basis. Of note her home BP meds of amlodipine and bisoprolol hydrochlorothiazide were discontinued. She was also discharged on p.o. potassium chloride 10 meq daily o/a of her being placed on lasix. Patient seen and examined prior to discharge. She felt well and had no complaints. She had an uneventful night. Review of systems otherwise negative. Labs and vitals reviewed. Home medication reviewed and reconciled. Physical Exam Const alert, oriented x3 and no apparent distress General Appearance: cooperative and comfortable Orientation / Consciousness: awake Exam Limitations: no limitations HEENT normocephalic, head/scalp atraumatic, hearing grossly normal bilaterally, moist oral mucous membranes and oropharynx normal Mouth: oral and palatal mucosa normal Eyes PERRL, EOMs intact bilaterally and conjunctivae normal Neck no lymphadenopathy, supple and no JVD Resp normal respiratory effort, no retractions, no use of accessory muscles and clear to auscultation bilaterally Cardio regular rate, regular rhythm, S1 normal heart sound, S2 normal heart sound, no murmurs and no rub GI normal to inspection, nondistended, normoactive bowel sounds, soft to palpation, non-tender and non-distended Extremity normal to inspection, full ROM and no clubbing, cyanosis or edema Skin no rashes or lesions noted and no wounds Neuro oriented x3, CN's II-XII intact bilaterally, moves all extremities and no focal motor deficits Sensorium / Orientation: awake and alert Motor Exam: strength 5/5 throughout Psych affect normal Weight / BMI Weight Weight: 172 lb 2.896 oz Body Mass Index (BMI) 31.4 ABG / Lab / Microbiology Data 12/31/24 02:41 12/31/24 02:41 Laboratory: Laboratory Results - last 24 hr 12/30/24 20:30: WBC 8.7, RBC 4.94, Hgb 14.8, Hct 44.2, MCV 89.5, MCH 30.0, MCHC 33.5, RDW Std Deviation 44.7 H, RDW Coeff of Bob 13.7, Plt Count 241, MPV 10.3, Immature Gran % (Auto) 0.200, Neut % (Auto) 44.0 L, Lymph % (Auto) 45.2 H, [place] % (Auto) 7.8, Eos % (Auto) 2.1, Baso % (Auto) 0.7, Absolute Neuts (auto) 3.8, Absolute Lymphs (auto) 3.92, Nucleated RBC % 0, PT 12.8, INR 0.9, APTT 25.3, D- Dimer Quant (PE/DVT) 0.96 H*, Sodium 138, Potassium 4.6, Chloride 106, Carbon Dioxide 24.0, Anion Gap 8, BUN 14, Creatinine 0.97, Estim Creat Clear Calc 42.31, Est GFR (MDRD) Af Amer 70, Est GFR (MDRD) Non-Af 58 L, BUN/Creatinine Ratio 14.4, Glucose 143 H, Calcium 9.5, Magnesium 2.2, Troponin I High Sens 17, B-Natriuretic Peptide 379.8 H, TSH 4.410 H, Free T4 0.85 12/30/24 22:44: Troponin I High Sens 29 12/31/24 02:41: WBC 6.4, RBC 4.44, Hgb 13.3, Hct 39.8, MCV 89.6, MCH 30.0, MCHC 33.4, RDW Std Deviation 44.9 H, RDW Coeff of Bob 13.7, Plt Count 214, MPV 10.3, Immature Gran % (Auto) 0.300, Neut % (Auto) 56.6, Lymph % (Auto) 32.1, [place] % (Auto) 8.2, Eos % (Auto) 2.0, Baso % (Auto) 0.8, Absolute Neuts (auto) 3.6, Absolute Lymphs (auto) 2.07, Nucleated RBC % 0, Sodium 139, Potassium 3.7, C hloride 108 H, Carbon Dioxide 26.0, Anion Gap 6, BUN 13, Creatinine 0.78, Estim Creat Clear Calc 50.66, Est GFR (MDRD) Af Amer 91, Est GFR (MDRD) Non-Af 75, BUN/Creatinine Ratio 16.7, Glucose 106, Calcium 8.8, Total Bilirubin 0.30, AST 19, ALT 26, Alkaline Phosphatase 74, Troponin I High Sens 31, Total Protein 7.3, Albumin 3.3, Globulin 4.0, Albumin/Globulin Ratio 0.8 L, Procalcitonin 0.05 Microbiology: Microbiology 12/31/24 00:35 Mucosa - Nasopharyngeal Coronavirus COVID-19 PCR - Final 12/31/24 00:35 Mucosa - Nasopharyngeal Respiratory Panel (PCR) - Final Radiography Diagnostic Testing: Radiology Impression Chest X-Ray 12/30/24 20:40 IMPRESSION: NEGATIVE SINGLE VIEW OF THE CHEST. Reading Location: [facility] Chest CTA 12/30/24 22:11 IMPRESSION: No pulmonary embolism. Diffuse ground-glass opacities which may represent edema or infection. Enlarged mediastinal lymph nodes. One or more dose reduction techniques were used (e.g., Automated exposure control, adjustment of the mA and/or kV according to patient size, use of iterative reconstruction technique). Reading Location: [facility] Echocardiogram 12/31/24 00:10 Interpretation Summary Normal left ventricle. Left ventricular systolic function is normal. The left ventricular ejection fraction is 70 %. The left atrium is mildly enlarged. Stage 1 diastolic dysfunction. There is mild to moderate mitral annular calcification. Pulmonary artery systolic pressure is 30 mmHg. Ordering Physician: Edda Langston Referring Physician: Dwight Patricia Performed By: Jessi Trejo RDCS D/C Instructions Discharge Diet: Low fat / Low cholesterol Discharge Activity: Return to Normal Activity Weight Bearing Status: Weight bearing as tolerated Call your doctor if you observe: Fever of 101 or Higher, Shortness of breath, Dizziness, Swelling in the ankles and Chest pain DC O2, CPAP, BIPAP Needs Home O2 Discharge instructions: No DC home with Oxygen: No Meaningful Use Info Meaningful Use Meaningful Use Diagnoses (Choose all that apply): None applicable Ischemic Stroke Statin Dosing Therapy Reference: STATIN DOSE THERAPY REFERENCE: * Patients > 75 years receive moderate or high dose statin therapy. * Patients 75 years or YOUNGER should receive HIGH intensity statin dose unless contraindicated. You will be required to document reason for non-treatment if statin daily dose does not meet guidelines. HIGH DOSE STATIN THERAPY DAILY Atorvastatin > than or = to 40 mg Rosuvastatin > than or = to 20 mg Amlodipine + Atorvastatin > than or = to 2.5/40 mg Ezetimibe + Simvastatin 10/80 mg Simvastatin 80mg Discharge Plan Admission Admit Date/Time: 12/30/24 23:21 Primary Reason for Your Visit: new onset afib Attending Provider: Elisabet Fishman Primary Care Provider: Jacquie Coleman Consulting Providers: Edda Langston; Robert Kingsley Instructions Patient Instructions: AFib Dc, AFib Preventing Stroke Discharge Orders/Prescriptions Prescriptions: New diltiazem HCl 120 mg Capsule,Extended Release 24hr 120 mg PO BID Qty: 60 2RF Eliquis 5 mg Tablet 5 mg PO BID Qty: 60 2RF furosemide [Lasix] 20 mg tablet 20 mg PO DAILY Qty: 30 1RF potassium chloride 10 mEq tablet extended release 10 meq PO DAILY Qty: 30 1RF Continued simvastatin 10 MG tablet 10 mg PO QHS pantoprazole [Protonix] 40 mg tablet,delayed release (DR/EC) 40 mg PO DAILY sennosides [Senokot] 8.6 mg tablet 8.6 mg PO DAILY Discontinued amlodipine 10 MG tablet 10 mg PO DAILY aspirin 81 MG tablet,chewable 81 mg PO DAILY bisoprolol-hydrochlorothiazide 1 EACH tablet 1 tab PO DAILY Patient Comments: pt is currently on the -05.18 Referrals / Follow Up: Jozef Pena MD [Med Staff - Active Staff] - Within 2 Weeks (see to establish care for afib) Jacquie Coleman MD [Primary Care Provider] - Within 1 Week Disposition Disposition (needs filled in before D/C Order can be placed): Home, Self Care Charges/Coding Visit Charges Inpatient E&M: 13398 Disch Hosp >30min
== END 2024-12-31 19:00 | disposition home or self-care (01) ==
LOC: ED 23:21 → PCU 23:33
PROVIDERS: Admitting Provider Family Medicine; Emergency Provider Surgery; PCP Family Medicine; Referring Provider Surgery; Visit Provider Student in an Organized Health Care Education/Training Program
DX: I48.0 Paroxysmal atrial fibrillation (principal); I50.30 Unspecified diastolic (congestive) heart failure; I13.0 Hypertensive heart and chronic kidney disease with heart failure and stage 1 through stage 4 chronic kidney disease, or unspecified chronic kidney disease; N18.30 Chronic kidney disease, stage 3 unspecified; E78.5 Hyperlipidemia, unspecified; Z79.82 Long term (current) use of aspirin; K21.9 Gastro-esophageal reflux disease without esophagitis; R00.1 Bradycardia, unspecified; E66.9 Obesity, unspecified; E03.9 Hypothyroidism, unspecified; Z79.899 Other long term (current) drug therapy; R73.9 Hyperglycemia, unspecified; Z68.32 Body mass index [BMI] 32.0-32.9, adult
CPT/HCPCS: 36415; 71045; 71275; 80048; 80053; 83735; 83880; 84145; 84439; 84443; 84484; 85025; 85379; 85610; 85730; 87633; 87635; 93005; 93306; 96361; 96374; 99221; 99285; Q9957; Q9967; A4216; G0378

== ENCOUNTER → 2025-01-11 | Outpatient (CLI) | payer MEDICARE, OTHER, SELFPAY ==
[2025-01-11 16:33] LABS: Anion Gap 6 (5-15); BUN 13 mg/dL (7-18); BUN/Creat Ratio 15.2 RATIO (10-20); Calcium,Total 9.6 mg/dL (8.5-10.1); Chloride 103 mmol/L (98-107); Creatinine, Serum 0.86 mg/dL (0.55-1.02); EST Glomerular Filtration Rate 67 mL/min (>60); Est Glom Filt Rate - Afr Amer 81 mL/min (>60); Glucose 109 mg/dL (74-106); Potassium 4.1 mmol/L (3.5-5.1); Sodium Level 136 mmol/L (136-145); T4 Free Direct 0.92 ng/dL (0.76-1.46)
[2025-01-13 15:38] LABS: BNP,B-Type NATRIURETIC PEPTIDE 85.3 pg/mL (0-100)
== END | disposition home or self-care (01) ==
LOC: BFHLAB 11:25
PROVIDERS: PCP Family Medicine; Visit Provider Family Medicine
DX: I11.0 Hypertensive heart disease with heart failure (principal); I50.9 Heart failure, unspecified; I48.91 Unspecified atrial fibrillation
CPT/HCPCS: 36415; 80048; 83880; 84439; 84443

== ENCOUNTER → 2025-03-07 | Outpatient (CLI) | payer MEDICARE, OTHER, SELFPAY ==
--- NOTE | 2025-03-07 11:03 | STRESSREP ---
Stress Test Report Pharmacologic myocardial perfusion stress test. 84-year-old lady with a history of atrial fibrillation Resting EKG demonstrates sinus rhythm with premature atrial complexes with a rate of 77 bpm. Resting blood pressure is 128/70 mmHg. 0.4 mg of regadenoson was infused per usual protocol followed by rapid intravenous saline flush injection. Continuous EKG monitoring was performed. The maximum heart rate was 91 bpm which was 66% of max impacted heart rate the maximum workload was 1 metabolic equivalent. At rest there were no ST or T wave changes noted to suggest ischemia and at peak infusion nonspecific ST changes were noted which did not meet the criteria for ischemia. No clinical angina is noted. The final blood pressure was 124/60 mmHg. Myocardial perfusion protocol. 13.1 mCi of technetium 99m sestamibi was injected at rest. 0.4 mg of regadenoson was infused per usual protocol. At peak infusion 40.9 mCi of technetium 99m sestamibi was injected stress images were obtained stress and rest images were reconstructed and compared in the short axis vertical long and horizontal long axis. Gated images were also obtained. Perfusion SPECT analysis: Review of the stress images demonstrate normal uptake of tracer noted in all areas of the myocardium. The resting images similar demonstrated normal uptake of tracer noted in all areas of the myocardium. No areas of reversibility are noted to suggest ischemia and no previous infarct is noted. Gated SPECT analysis: The gated ejection fraction is 74%. Conclusion: Normal pharmacologic myocardial perfusion stress test. Preserved ejection fraction.
== END | disposition home or self-care (01) ==
LOC: CVS 07:03
PROVIDERS: PCP Family Medicine; Referring Provider Internal Medicine Cardiovascular Disease; Visit Provider Internal Medicine Cardiovascular Disease
DX: I25.10 Atherosclerotic heart disease of native coronary artery without angina pectoris (principal); I48.91 Unspecified atrial fibrillation
CPT/HCPCS: 78452; 93017; A9500; A4216; J2785

== ENCOUNTER 2025-03-16 23:59 | Emergency (ER) | payer MEDICARE, OTHER, SELFPAY ==
[2025-03-17] VITALS (10 sets, daily range): BP systolic 91–144; BP diastolic 57–95; PULSE 74–163; RESP 12–20; TEMP 36.6–36.8; O2SAT 37–100; BMI 31.8
--- NOTE | 2025-03-17 01:13 | ED.VIS.DYS ---
HPI History of Present Illness Chief Complaint: Palpitations Informant: patient and friend Narrative Narrative: 84-year-old female history of paroxysmal atrial fibrillation presenting to the emergency room with atrial fibrillation. Patient tells me that at 2200 hrs. she did not feel good so she took a couple Tylenol. Around 20 to 30 hours she was laying in bed and felt the pounding in her back so she got up and put herself on the pulse oximeter and showed her heart rate to be fast. She took an extra diltiazem around 20 to 30 hours. She notes that she has not missed any doses of Eliquis in the past month. She notes that she has followed up with cardiology because she was diagnosed with A-fib in December. She is currently seeing Dr. Pena. She states that she underwent stress test last week that was negative. Patient denies any chest pain with the current episode. [facility] Medical History Palpitations Cardiac murmur Vitamin D deficiency Atrial fibrillation with RVR Obesity GERD (gastroesophageal reflux disease) CKD (chronic kidney disease), stage III HLD (hyperlipidemia) Hypertension Cataracts, bilateral Home Medications ?Medication ?Instructions ?Recorded ?Last Taken ?Type simvastatin 10 mg tablet 10 mg PO QHS 06/24/16 01/24/20 History pantoprazole 40 mg tablet,delayed 40 mg PO DAILY 12/30/24 Unknown History release (Protonix) apixaban 5 mg tablet (Eliquis) 5 mg PO BID #60 tabs 12/31/24 Unknown Rx diltiazem HCl 120 mg 120 mg PO BID #60 caps 12/31/24 Unknown Rx capsule,extended release 24 hr furosemide 20 mg tablet (Lasix) 20 mg PO DAILY #30 tabs 12/31/24 Unknown Rx potassium chloride 10 mEq 10 meq PO DAILY #30 tabs 12/31/24 Unknown Rx tablet,extended release sennosides 8.6 mg tablet (Senokot) 8.6 mg PO DAILY 12/31/24 Unknown History Allergy/AdvReac Type Severity Reaction Status Date / Time morphine Allergy Anaphylaxis Verified 03/17/25 01:47 niacin Allergy Rash Verified 03/17/25 01:47 procaine HCl (From Novocain) Allergy Anaphylaxis Verified 03/17/25 01:47 tetracycline Allergy Rash Verified 03/17/25 01:47 omeprazole AdvReac Severe Diarrhea Verified 03/17/25 01:47 Family History Father Cancer Hypertension Respiratory disease Mother Diabetes Epilepsy Heart disease Brother CVA (cerebral vascular accident) Surgical History History of cataract surgery History of appendectomy History of total hysterectomy Social History household members: none Smoking Status: Never smoker alcohol intake: never substance use type: does not use additional social history: Does Take Aspirin Does Not Take Ibuprofen ROS ROS ED Constitutional Constitutional ED: Denies chills, fever(s) or weight loss Eyes Eyes: Denies change in vision or diplopia ENT ENT ED: Denies ear pain, rhinorrhea or sore throat Cardiovascular Cardiovascular: Reports palpitations and racing heartbeat; Denies chest pain or orthopnea Respiratory/Chest Respiratory/Chest: Denies cough, dyspnea or orthopnea Gastrointestinal Gastrointestinal: Denies abdominal pain, diarrhea, nausea or vomiting Genitourinary Genitourinary ED: Denies dysuria, hematuria or urinary frequency Musculoskeletal Musculoskeletal: Denies arthralgias or myalgias Integumentary Denies abscess or rash Neurologic Neurologic: Denies headache(s) or weakness Psychiatric Psychiatric: Denies anxiety, depression, suicidal ideation or suicidal thoughts Endocrine Endocrinology: Denies polydipsia, polyphagia or polyuria Allergic/Immunologic Allergic/Immunologic ED: Denies mouth swelling, tongue swelling or urticaria EXAM Physical Exam Const Vital Signs: 03/17/25 01:40 03/17/25 01:40 03/17/25 01:45 Temperature 97.8 F Temperature Source Oral Pulse Rate 159 H 124 H Pulse Rate [1 (Initial Baseline)] Pulse Rate [2] Pulse Rate [3] Pulse Rate [4] Pulse Rate [5] Pulse Rate [6] Pulse Rate [8] Respiratory Rate 20 H 18 Respiratory Rate [1 (Initial Baseline)] Respiratory Rate [2] Respiratory Rate [3] Respiratory Rate [4] Respiratory Rate [5] Respiratory Rate [6] Respiratory Rate [8] Respiratory Effort Normal Non-Labored Blood Pressure 144/94 H 127/91 H Blood Pressure [1 (Initial Baseline)] Blood Pressure [5] Blood Pressure [8] Blood Pressure Mean 110 103 Baseline BP Pulse Ox 100 95 Oxygen Delivery Method Room Air Room Air Oxygen Delivery Method [1 (Initial Baseline)] Oxygen Delivery Method [2] Oxygen Delivery Method [3] Oxygen Delivery Method [4] Oxygen Delivery Method [5] Oxygen Delivery Method [6] Oxygen Delivery Method [7] Oxygen Delivery Method [8] Oxygen Flow Rate (L/min) [5] Oxygen Flow Rate (L/min) [6] EtCo2 (Normal 35-45 , high quality CPR 10-20 & ROSC>/=40mmHg EtCo2 (Normal 35-45 , high quality CPR 10-20 & ROSC>/=40mmHg [1 (Initial Baseline)] EtCo2 (Normal 35-45 , high quality CPR 10-20 & ROSC>/=40mmHg [3] EtCo2 (Normal 35-45 , high quality CPR 10-20 & ROSC>/=40mmHg [4] EtCo2 (Normal 35-45 , high quality CPR 10-20 & ROSC>/=40mmHg [5] EtCo2 (Normal 35-45 , high quality CPR 10-20 & ROSC>/=40mmHg [6] EtCo2 (Normal 35-45 , high quality CPR 10-20 & ROSC>/=40mmHg [7] EtCo2 (Normal 35-45 , high quality CPR 10-20 & ROSC>/=40mmHg [8] 03/17/25 02:15 03/17/25 02:26 03/17/25 02:30 Temperature Temperature Source Pulse Rate 152 H 163 H Pulse Rate [1 (Initial Baseline)] Pulse Rate [2] Pulse Rate [3] Pulse Rate [4] Pulse Rate [5] Pulse Rate [6] Pulse Rate [8] Respiratory Rate 16 18 Respiratory Rate [1 (Initial Baseline)] Respiratory Rate [2] Respiratory Rate [3] Respiratory Rate [4] Respiratory Rate [5] Respiratory Rate [6] Respiratory Rate [8] Respiratory Effort Blood Pressure 125/95 H 136/82 H Blood Pressure [1 (Initial Baseline)] Blood Pressure [5] Blood Pressure [8] Blood Pressure Mean 105 100 Baseline BP Pulse Ox 97 96 Oxygen Delivery Method Room Air Room Air Oxygen Delivery Method [1 (Initial Baseline)] Oxygen Delivery Method [2] Oxygen Delivery Method [3] Oxygen Delivery Method [4] Oxygen Delivery Method [5] Oxygen Delivery Method [6] Oxygen Delivery Method [7] Oxygen Delivery Method [8] Oxygen Flow Rate (L/min) [5] Oxygen Flow Rate (L/min) [6] EtCo2 (Normal 35-45 , high quality CPR 10-20 & ROSC>/=40mmHg 37 EtCo2 (Normal 35-45 , high quality CPR 10-20 & ROSC>/=40mmHg [1 (Initial Baseline)] EtCo2 (Normal 35-45 , high quality CPR 10-20 & ROSC>/=40mmHg [3] EtCo2 (Normal 35-45 , high quality CPR 10-20 & ROSC>/=40mmHg [4] EtCo2 (Normal 35-45 , high quality CPR 10-20 & ROSC>/=40mmHg [5] EtCo2 (Normal 35-45 , high quality CPR 10-20 & ROSC>/=40mmHg [6] EtCo2 (Normal 35-45 , high quality CPR 10-20 & ROSC>/=40mmHg [7] EtCo2 (Normal 35-45 , high quality CPR 10-20 & ROSC>/=40mmHg [8] 03/17/25 02:45 03/17/25 02:45 03/17/25 03:00 Temperature 98.1 F Temperature Source Pulse Rate 153 H 77 Pulse Rate [1 (Initial Baseline)] 153 H Pulse Rate [2] 150 H Pulse Rate [3] 161 H Pulse Rate [4] 93 Pulse Rate [5] 84 Pulse Rate [6] 80 Pulse Rate [8] 78 Respiratory Rate 18 18 Respiratory Rate [1 (Initial Baseline)] 18 Respiratory Rate [2] 18 Respiratory Rate [3] 18 Respiratory Rate [4] 12 Respiratory Rate [5] 14 Respiratory Rate [6] 16 Respiratory Rate [8] 18 Respiratory Effort Blood Pressure 128/87 H 96/66 Blood Pressure [1 (Initial Baseline)] 128/87 H Blood Pressure [5] 104/61 Blood Pressure [8] 96/66 Blood Pressure Mean 76 Baseline BP 128/87 Pulse Ox 96 95 Oxygen Delivery Method Room Air Room Air Oxygen Delivery Method [1 (Initial Baseline)] Room Air Oxygen Delivery Method [2] Room Air Oxygen Delivery Method [3] Room Air Oxygen Delivery Method [4] Room Air Oxygen Delivery Method [5] Nasal Cannula Oxygen Delivery Method [6] Nasal Cannula Oxygen Delivery Method [7] Room Air Oxygen Delivery Method [8] Room Air Oxygen Flow Rate (L/min) [5] 6 Oxygen Flow Rate (L/min) [6] 6 EtCo2 (Normal 35-45 , high quality CPR 10-20 & ROSC>/=40mmHg 37 EtCo2 (Normal 35-45 , high quality CPR 10-20 & ROSC>/=40mmHg [1 (Initial Baseline)] 37 EtCo2 (Normal 35-45 , high quality CPR 10-20 & ROSC>/=40mmHg [3] 35 EtCo2 (Normal 35-45 , high quality CPR 10-20 & ROSC>/=40mmHg [4] 38 EtCo2 (Normal 35-45 , high quality CPR 10-20 & ROSC>/=40mmHg [5] 35 EtCo2 (Normal 35-45 , high quality CPR 10-20 & ROSC>/=40mmHg [6] 39 EtCo2 (Normal 35-45 , high quality CPR 10-20 & ROSC>/=40mmHg [7] 36 EtCo2 (Normal 35-45 , high quality CPR 10-20 & ROSC>/=40mmHg [8] 34 Positive well nourished and well developed General Appearance ED: well developed and NAD HEENT Reports normocephalic, head/scalp atraumatic and moist mucous membranes Eyes PERRL and EOMs intact bilaterally Neck no lymphadenopathy, supple and no JVD Resp normal respiratory effort and clear to auscultation bilaterally Cardio no murmurs Rate: tachycardic Rhythm: abnormal rhythm irregularly irregular GI normal to inspection, nondistended, normoactive bowel sounds and non-tender Palpation: soft Back/Spine no CVA tenderness and normal ROM Extremity normal to inspection General Extremety ED: Negative for edema General Extremity: Negative for edema Neuro oriented x3, CN's II-XII intact bilaterally and no sensory deficits noted Sensorium / Orientation: alert Motor Exam: strength 5/5 throughout Psych mental status grossly normal Mood & Affect: Negative for depressed or tearful Skin no rashes or lesions noted and no wounds MDM MDM MDM Narrative Medical decision making narrative: Differential diagnosis includes but not limited to cardiac dysrhythmia acute coronary syndrome electrolyte abnormalities anemia dehydration EKG confirms atrial fibrillation with RVR. White count 10.4 hemoglobin 15.8. Glucose 138 potassium 3.9 sodium 138. Patient received to 10 mg of Cardizem with minimal effect on heart rate. I spoke with the patient at length regarding different treatment options including Cardizem drip amiodarone drip and and an attempt at cardioversion. Patient provided informed written consent for the use of propofol for procedural sedation for synchronized cardioversion. After the usual preparatory steps, the patient had defibrillation pads placed anterior posterior. I performed a timeout identifying the patient's name date of and reason for procedure.defibrillator was placed to synchronized mode. Patient received 0.5 mg/kg bolus of propofol. This was followed by 0.25 mg/kg bolus of propofol to achieve adequate sedation. Once adequate sedation was achieved the patient received a single synchronized 200 J shock which resulted in return to sinus rhythm. During the recovery phase the patient did have a brief episode of hypoxia into the 80s. This resolved as sedation wore off and the patient was allowed to recover. Repeat EKG confirms return to normal sinus rhythm and the patient was monitored. History & Record Review Discussion w/independent historian: Patient Additional record(s) reviewed:: Prior inpatient record, Prior outpatient record, Prior ED visit and Prior labs Lab Data Attestation: I reviewed the patient's lab results. Labs: Laboratory Results - last 24 hr 03/17/25 00:09 WBC 10.4 RBC 5.29 Hgb 15.8 H Hct 47.6 H MCV 90.0 MCH 29.9 MCHC 33.2 RDW Std Deviation 45.0 H RDW Coeff of Bob 13.5 Plt Count 267 MPV 10.7 Immature Gran % (Auto) 0.300 Neut % (Auto) 39.9 L Lymph % (Auto) 49.6 H [place] % (Auto) 8.0 Eos % (Auto) 1.6 Baso % (Auto) 0.6 Absolute Neuts (auto) 4.1 Absolute Lymphs (auto) 5.15 H Nucleated RBC % 0 Sodium 138 Potassium 3.9 Chloride 100 Carbon Dioxide 22.4 Anion Gap 16 H BUN 15 Creatinine 1.13 Est GFR (MDRD) Non-Af 48 L BUN/Creatinine Ratio 13.6 Glucose 138 H Calcium 9.6 Magnesium 2.1 EKG Initial EKG: Attestation: I personally reviewed and interpreted this EKG as follows: Comments: Atrial fibrillation with rapid ventricular response Prior EKG tracings: available for review (Unchanged from prior A-fib rhythm) Follow-up EKG: Attestation: I personally reviewed and interpreted this EKG as follows: Comments: Sinus rhythm with PAC ventricular rate of 85 bpm Prior EKG tracings: available for review Prior: Unchanged Management Discussion w/another healthcare provider: Training Manager (Dr Pena (Cardiology)) Procedures Procedural Sedation 1 (Initial Baseline): Consent Signed: Yes Any Problems With Anesthesia: No You/Your family experience fever (hyperthermia) w/anesthesia: No Sedation medication: Propofol Dose: 60 Route: IV Total Moderate Sedation Units: 4 Maliampati Score: Class II ASA Classification: I and II Critical Care Time Critical Care Time: Yes Critical care time (excluding procedures): 30-74 minutes (31 min), Including time spent:, Discussing w/Patient &/or Family/Seed Service Advisor, Discussing w/Consultants, Arranging Admission or Transfer and Performing Direct Patient Care at Bedside Discharge Plan Triage Chief Complaint: Palpitations ED Provider: Omid Foley Dx/Rx/DC Orders Clinical Impression: Atrial fibrillation with RVR, Anticoagulated Instructions: AFib Dc Prescriptions: No Action simvastatin 10 MG tablet 10 mg PO QHS pantoprazole [Protonix] 40 mg tablet,delayed release (DR/EC) 40 mg PO DAILY sennosides [Senokot] 8.6 mg tablet 8.6 mg PO DAILY diltiazem HCl 120 mg Capsule,Extended Release 24hr 120 mg PO BID Qty: 60 2RF Eliquis 5 mg Tablet 5 mg PO BID Qty: 60 2RF furosemide [Lasix] 20 mg tablet 20 mg PO DAILY Qty: 30 1RF potassium chloride 10 mEq tablet extended release 10 meq PO DAILY Qty: 30 1RF Primary Care Provider: Jacquie Coleman Referrals: Jozef Pena MD [Med Staff - Active Staff] - (call to arrange follow up) Jacquie Coleman MD [Primary Care Provider] - Print Language: Slovak Disposition Disposition: Home, Self Care
[2025-03-17 01:33] LABS: Absolute Lymphocyte Count 5.15 X10^3/uL (0.83-4.51); Absolute Neutrophil Count 4.1 X10^3/uL (2.0-7.7); Basophil# 0.06 X10^3/uL; Basophil% 0.6 % (0-1); Eosinophil# 0.17 X10^3/uL; Eosinophils% 1.6 % (0-5); Hematocrit 47.6 % (37-47); Hemoglobin 15.8 g/dL (12.0-15.0); Lymphocyte # 5.15 X10^3/ul (0.83-4.51); Lymphocyte % 49.6 % (19-41); Mean Corp Hgb Conc 33.2 g/dL (32-36); Mean Corpuscular Hgb 29.9 pg (27.0-32.0); Mean Platelet Vol. 10.7 fl (6.2-12.0); Monocyte# 0.83 X10^3/uL; NRBC Flagged by Analyzer 0 % (0-5); Neutrophil # 4.14 X10^3/uL (2.7-7.7); Neutrophil % 39.9 % (47-70); POSITIVE DIFFERENTIAL YES; Platelet Count 267 K/mm3 (150-450); RBC Distribution Width CV 13.5 % (11.6-14.6); Red Blood Count 5.29 M/mm3 (4.2-5.4); White Blood Count 10.4 K/mm3 (4.4-11.0)
[2025-03-17 01:34] LABS: Anion Gap 16 (5-15); BUN 15 mg/dL (4-19); BUN/Creat Ratio 13.6 RATIO (10-20); Calcium,Total 9.6 mg/dL (7.6-11.0); Carbon Dioxide 22.4 mmol/L (21.0-32.0); Chloride 100 mmol/L (98-108); Creatinine, Serum 1.13 mg/dL (0.70-1.20); EST Glomerular Filtration Rate 48 (>60); Glucose 138 mg/dL (70-99); Potassium 3.9 mmol/L (3.3-5.1); Sodium Level 138 mmol/L (133-145)
--- NOTE | 2025-03-17 01:34 | ED.RN ---
PER DOWNTIME CHARTING, PATIENT WAS GIVEN 10MG OF CARDIZEM AT 0054 AND A SECOND DOSE OF 10MG OF CARDIZEM AT 0134.
--- NOTE | 2025-03-17 01:44 | ED.RN ---
SEE DOWNTIME DOCUMENTATION FOR PATIENT'S CHART FROM 9515 TO 8363. CHART UPDATED AND DOCUMENTATION COMPLETED D/T BEING REQUIRED DOCUMENTATION TO BE COMPLETED.
[2025-03-17 02:24] LABS: Magnesium 2.1 mg/dL (1.5-2.2)
[2025-03-17] MEDS: Propofol 200 MG/20 ML Vial IV BOLUS (02:46)
== END 2025-03-17 04:15 | disposition home or self-care (01) ==
PROVIDERS: Emergency Provider Emergency Medicine; PCP Family Medicine; Visit Provider Emergency Medicine
DX: I48.0 Paroxysmal atrial fibrillation (principal); N18.30 Chronic kidney disease, stage 3 unspecified; I12.9 Hypertensive chronic kidney disease with stage 1 through stage 4 chronic kidney disease, or unspecified chronic kidney disease; E78.5 Hyperlipidemia, unspecified; Z79.01 Long term (current) use of anticoagulants
CPT/HCPCS: 80048; 83735; 85025; 92960; 93005; 99284; A4216

== ENCOUNTER 2025-03-17 23:20 | Emergency (ER) | payer MEDICARE, OTHER, SELFPAY ==
[2025-03-17 23:21] VITALS: BP 174/91; PULSE 94; RESP 16; TEMP 36; O2SAT 98
[2025-03-17 23:23] VITALS: BMI 32.3
[2025-03-17 23:25] VITALS: PULSE 103; RESP 20; O2SAT 96
--- NOTE | 2025-03-17 23:27 | RAD_ITS ---
PROCEDURE: CHEST 1 VIEW (PORTABLE) 03/17/2025 REASON FOR EXAM: CHEST PAIN TECHNIQUE: Frontal view of the chest. COMPARISON: 12/30/2024 FINDINGS: Hardware: None Heart: Cardiac and mediastinal contours are stable. Lungs: The lungs are clear. Elevated right hemidiaphragm. Bones: The bones are unremarkable. Other: RAD/Chest 1 View (Portable) IMPRESSION: No Acute Findings. Reading Location: [id number]
[2025-03-17 23:38] LABS: Absolute Neutrophil Count 4.4 X10^3/uL (2.0-7.7); Basophil# 0.05 X10^3/uL; Basophil% 0.6 % (0-1); Eosinophil# 0.22 X10^3/uL; Eosinophils% 2.4 % (0-5); Hematocrit 43.7 % (37-47); Hemoglobin 14.8 g/dL (12.0-15.0); Mean Corp Hgb Conc 33.9 g/dL (32-36); Mean Corpuscular Hgb 30.1 pg (27.0-32.0); Mean Platelet Vol. 9.7 fl (6.2-12.0); Monocyte# 0.77 X10^3/uL; Monocyte% 8.6 % (0-10); NRBC Flagged by Analyzer 0 % (0-5); Neutrophil # 4.41 X10^3/uL (2.7-7.7); Neutrophil % 49.1 % (47-70); Platelet Count 247 K/mm3 (150-450); RBC Distribution Width CV 13.9 % (11.6-14.6); RBC Distribution Width SD 45.3 fl (35.1-43.9); Red Blood Count 4.91 M/mm3 (4.2-5.4)
[2025-03-17 23:52] VITALS: BP 142/89; PULSE 83; RESP 20; O2SAT 95
[2025-03-18] LABS: Anion Gap 15 (5-15); BUN 17 mg/dL (4-19); BUN/Creat Ratio 20.1 RATIO (10-20); Calcium,Total 9.3 mg/dL (7.6-11.0); Carbon Dioxide 20.8 mmol/L (21.0-32.0); Chloride 103 mmol/L (98-108); Creatinine, Serum 0.86 mg/dL (0.70-1.20); EST Glomerular Filtration Rate 67 (>60); Glucose 115 mg/dL (70-99); Potassium 3.9 mmol/L (3.3-5.1); Sodium Level 138 mmol/L (133-145); Troponin T High Sensitivity 25 ng/L (<=14)
--- NOTE | 2025-03-18 00:15 | ED.VIS.CHEST ---
HPI History of Present Illness Chief Complaint: Palpitations Narrative Narrative: Chief complaint and HPI: Palpitations. 84-year-old female with past medical history of proximal atrial fibrillation on Eliquis, CKD, HLD, HTN presents for evaluation of palpitations. Patient states that she developed palpitations this evening in which she checked her heart rate at home. She states her heart rate was 115. She states she took an extra dose of her diltiazem this evening due to this and presented to the emergency department. Denies palpitations currently. Patient usually takes 125 mg diltiazem twice daily. She has not missed any doses of her Eliquis. She denies any fever, chills, shortness of breath, chest pain, abdominal, nausea, vomiting. Patient follows with Dr. Pena. On chart review, patient was seen in our emergency department yesterday for atrial fibrillation with RVR. At that time she failed cardioversion via Cardizem and had synchronized cardioversion. On chart review, patient does had a stress test on 03/07/2025 that was negative. Review of systems: See HPI Medications: As listed on the chart Allergies: As listed on the chart PFSH: Per chart Vital signs: As listed on the chart. Reviewed. Physical exam: Gen: A&O x3, NAD Head: Normocephalic, atraumatic Eyes: No sclera icterus, conjunctiva clear ENT: Moist mucous membranes Neck: Trachea midline, No JVD CV: RRR, no murmurs, no peripheral edema Resp: Lungs CTA BL, no w/r/c GI: Abd soft, non-distended, non-tender, no r/r/g Musc: Full ROM, no deformity Skin: Warm, dry Neuro: Alert, oriented, grossly intact, sensation intact Psych: Cooperative, appropriate mood and affect [facility] Medical History Palpitations Cardiac murmur Vitamin D deficiency Atrial fibrillation with RVR Obesity GERD (gastroesophageal reflux disease) CKD (chronic kidney disease), stage III HLD (hyperlipidemia) Hypertension Cataracts, bilateral Home Medications ?Medication ?Instructions ?Recorded ?Last Taken ?Type simvastatin 10 mg tablet 10 mg PO QHS 06/24/16 01/24/20 History pantoprazole 40 mg tablet,delayed 40 mg PO DAILY 12/30/24 Unknown History release (Protonix) apixaban 5 mg tablet (Eliquis) 5 mg PO BID #60 tabs 12/31/24 Unknown Rx diltiazem HCl 120 mg 120 mg PO BID #60 caps 12/31/24 Unknown Rx capsule,extended release 24 hr furosemide 20 mg tablet (Lasix) 20 mg PO DAILY #30 tabs 12/31/24 Unknown Rx potassium chloride 10 mEq 10 meq PO DAILY #30 tabs 12/31/24 Unknown Rx tablet,extended release sennosides 8.6 mg tablet (Senokot) 8.6 mg PO DAILY 12/31/24 Unknown History Allergy/AdvReac Type Severity Reaction Status Date / Time morphine Allergy Anaphylaxis Verified 03/17/25 23:21 niacin Allergy Rash Verified 03/17/25 23:21 procaine HCl (From Novocain) Allergy Anaphylaxis Verified 03/17/25 23:21 tetracycline Allergy Rash Verified 03/17/25 23:21 omeprazole AdvReac Severe Diarrhea Verified 03/17/25 23:21 Family History Father Cancer Hypertension Respiratory disease Mother Diabetes Epilepsy Heart disease Brother CVA (cerebral vascular accident) Surgical History History of cataract surgery History of appendectomy History of total hysterectomy Social History household members: none Smoking Status: Never smoker alcohol intake: never substance use type: does not use additional social history: Does Take Aspirin Does Not Take Ibuprofen EXAM Physical Exam Const Vital Signs: 03/17/25 23:21 03/17/25 23:25 03/17/25 23:31 Temperature 96.8 F L Temperature Source Temporal Pulse Rate 94 103 H Respiratory Rate 16 20 H Blood Pressure 174/91 H Blood Pressure Mean 118 Pulse Ox 98 96 Oxygen Delivery Method Room Air Room Air Room Air 03/17/25 23:52 03/18/25 00:25 03/18/25 01:00 Temperature Temperature Source Pulse Rate 83 80 81 Respiratory Rate 20 H 15 16 Blood Pressure 142/89 H 136/60 H 132/73 H Blood Pressure Mean 106 85 92 Pulse Ox 95 93 95 Oxygen Delivery Method Room Air Room Air MDM MDM MDM Narrative Medical decision making narrative: 84-year-old female with past medical history of proximal atrial fibrillation on Eliquis, CKD, HLD, HTN presents for evaluation of palpitations. Patient took an extra dose of her 125 mg diltiazem this evening prior to arrival. She was cardioverted yesterday for A-fib with RVR. Patient has no complaints at this time. On presentation, patient is no acute distress. She has mild hypertension. She is in normal sinus rhythm with heart rate in the 80s. Patient may have been in A-fib with RVR but converted herself with home diltiazem. Differential diagnosis includes but is not limited to proximal atrial fibrillation, atrial fibrillation with RVR, electrolyte abnormality, suspect less likely ACS as patient is not having any chest pain. CBC without leukocytosis or anemia. BMP without significant electrolyte abnormality or DEMETRI. Troponin 25 and 29. Her delta is 4. Patient not having any chest pain. Her elevated troponin may be secondary to her recent cardioversion. She just had a negative stress test. On reevaluation, patient is asymptomatic. Her hypertension is improving. She has remained in normal sinus rhythm and rate controlled. Given patient follows with cardiology, I did contact the oil program compliance specialist on-call, Dr. Manzanares. No changes in medication at this time per his recommendations, recommends patient calling in the office to see if her medications need to be adjusted. Patient was updated over the results and the plan. She confirmed understanding. Return precautions explained. Patient stable to discharge EKG: Interpreted by me/EM physician: EKG shows normal sinus rhythm with PACs. No ST elevation. Heart rate 96. This is similar to previous EKG that was obtained yesterday Diagnostic: Interpreted by me/EM physician: Chest x-ray without pneumonia, effusion, cardiomegaly, pneumothorax Impression: 1. Palpitations 2. History of atrial fibrillation with recent cardioversion Lab Data Labs: Laboratory Results - last 24 hr 03/17/25 03/18/25 23:30 00:55 WBC 9.0 RBC 4.91 Hgb 14.8 Hct 43.7 MCV 89.0 MCH 30.1 MCHC 33.9 RDW Std Deviation 45.3 H RDW Coeff of Bob 13.9 Plt Count 247 MPV 9.7 Immature Gran % (Auto) 0.300 Neut % (Auto) 49.1 Lymph % (Auto) 39.0 [place] % (Auto) 8.6 Eos % (Auto) 2.4 Baso % (Auto) 0.6 Absolute Neuts (auto) 4.4 Absolute Lymphs (auto) 3.50 Nucleated RBC % 0 Sodium 138 Potassium 3.9 Chloride 103 Carbon Dioxide 20.8 L Anion Gap 15 BUN 17 Creatinine 0.86 Estim Creat Clear Calc 47.80 L Est GFR (MDRD) Non-Af 67 BUN/Creatinine Ratio 20.1 H Glucose 115 H Calcium 9.3 Troponin T High Sens 25 H Troponin T Hi Sens 2 Hr 29 H Radiography Diagnostic Testing: Clinical Impression(s) from Imaging Studies Chest X-Ray 03/17/25 23:27 IMPRESSION: No Acute Findings. Reading Location: [id number] Discharge Plan Triage Chief Complaint: Palpitations ED Provider: Dwight Patricia Dx/Rx/DC Orders Prescriptions: No Action simvastatin 10 MG tablet 10 mg PO QHS pantoprazole [Protonix] 40 mg tablet,delayed release (DR/EC) 40 mg PO DAILY sennosides [Senokot] 8.6 mg tablet 8.6 mg PO DAILY diltiazem HCl 120 mg Capsule,Extended Release 24hr 120 mg PO BID Qty: 60 2RF Eliquis 5 mg Tablet 5 mg PO BID Qty: 60 2RF furosemide [Lasix] 20 mg tablet 20 mg PO DAILY Qty: 30 1RF potassium chloride 10 mEq tablet extended release 10 meq PO DAILY Qty: 30 1RF Primary Care Provider: Jacquie Coleman Referrals: Jacquie Coleman MD [Primary Care Provider] - Print Language: Icelandic
[2025-03-18 00:25] VITALS: BP 136/60; PULSE 80; RESP 15; O2SAT 93
[2025-03-18 01:00] VITALS: BP 132/73; PULSE 81; RESP 16; O2SAT 95
[2025-03-18 01:36] LABS: Troponin T High Sens 2 HR 29 ng/L (<=14)
[2025-03-18 02:07] LABS: Magnesium 2.1 mg/dL (1.5-2.2)
[2025-03-18 02:08] VITALS: BP 144/72; PULSE 86; RESP 18; TEMP 36.8; O2SAT 98
== END 2025-03-18 02:12 | disposition home or self-care (01) ==
PROVIDERS: Emergency Provider Surgery; PCP Family Medicine; Visit Provider Surgery
DX: R00.2 Palpitations (principal); I48.91 Unspecified atrial fibrillation; N18.30 Chronic kidney disease, stage 3 unspecified; I12.9 Hypertensive chronic kidney disease with stage 1 through stage 4 chronic kidney disease, or unspecified chronic kidney disease; E78.5 Hyperlipidemia, unspecified; Z79.01 Long term (current) use of anticoagulants; K21.9 Gastro-esophageal reflux disease without esophagitis
CPT/HCPCS: 71045; 80048; 83735; 84484; 85025; 93005; 99283; A4216

== ENCOUNTER 2025-05-05 19:13 | Emergency (ER) | payer MEDICARE, OTHER, SELFPAY ==
[2025-05-05] VITALS (12 sets, daily range): BP systolic 83–163; BP diastolic 51–87; PULSE 67–159; RESP 14–20; TEMP 36.7; O2SAT 88–98; BMI 31.8
--- NOTE | 2025-05-05 19:50 | RAD_ITS ---
PROCEDURE: CHEST PA AND LATERAL 05/05/2025 REASON FOR EXAM: CHEST PAIN TECHNIQUE: Frontal and lateral views of the chest. COMPARISON: Chest radiograph 03/17/2025. FINDINGS: Hardware: None. Heart: Stable mild cardiomegaly with pulmonary vascular congestion. Mediastinum: The mediastinal contour is stable. Lungs: No focal consolidation, pleural effusion or pneumothorax. Bones: Degenerative changes are identified within the thoracic spine. RAD/Chest PA and Lateral IMPRESSION: Stable mild cardiomegaly. Reading Location: [id number]
--- NOTE | 2025-05-05 19:57 | ED.VIS.CHEST ---
HPI History of Present Illness Chief Complaint: Palpitations Narrative Narrative: Chief complaint and HPI: Palpitations. 84-year-old female with past medical history of proximal atrial fib on Eliquis, CKD, HLD, HTN presents for evaluation of palpitations. History taken by patient as well as cardiology note on 03/25. Patient presented for same complaints in February in which I saw her. At that time she was in A-fib with RVR. Patient states that since seeing me in the emergency department she followed up in the cardiology office. There was changes in her medication. She was originally on diltiazem 125 mg twice daily. She is currently now on diltiazem 120 mg daily and metoprolol 25 mg twice daily. Patient states her palpitations started this evening. She states that she was due to take her diltiazem and her metoprolol so she took these first. The palpitations did not improve which is why she presents. She denies any chest pain, shortness of breath, nausea, vomiting. Review of systems: See HPI Medications: As listed on the chart Allergies: As listed on the chart PFSH: Per chart Vital signs: As listed on the chart. Reviewed. Physical exam: Gen: A&O x3, NAD Head: Normocephalic, atraumatic Eyes: No sclera icterus, conjunctiva clear ENT: Moist mucous membranes Neck: Trachea midline, No JVD CV: Tachycardic, irregularly irregular rhythm, no murmurs, no peripheral edema Resp: Lungs CTA BL, no w/r/c GI: Abd soft, non-distended, non-tender, no r/r/g Musc: Full ROM, no deformity Skin: Warm, dry Neuro: Alert, oriented, grossly intact, sensation intact Psych: Cooperative, appropriate mood and affect [facility] Medical History Atrial fibrillation with RVR Cardiac murmur Cataracts, bilateral CKD (chronic kidney disease), stage III GERD (gastroesophageal reflux disease) HLD (hyperlipidemia) Hypertension Obesity Palpitations Vitamin D deficiency Home Medications ?Medication ?Instructions ?Recorded ?Last Taken ?Type simvastatin 10 mg tablet 10 mg PO QHS 06/24/16 01/24/20 History pantoprazole 40 mg tablet,delayed 40 mg PO DAILY 12/30/24 Unknown History release (Protonix) apixaban 5 mg tablet (Eliquis) 5 mg PO BID #60 tabs 12/31/24 Unknown Rx sennosides 8.6 mg tablet (Senokot) 8.6 mg PO DAILY 12/31/24 Unknown History metoprolol tartrate 25 mg tablet 25 mg PO BID #180 tabs 03/21/25 Unknown Rx diltiazem HCl 120 mg 120 mg PO QDAY #90 caps 03/25/25 Unknown Rx capsule,extended release 24 hr furosemide 20 mg tablet (Lasix) 20 mg PO DAILY PRN edema #30 tabs 03/25/25 Unknown Rx potassium chloride 10 mEq 10 meq PO DAILY PRN with the lasix 03/25/25 Unknown Rx tablet,extended release #30 tabs Allergy/AdvReac Type Severity Reaction Status Date / Time morphine Allergy Anaphylaxis Verified 05/05/25 19:15 niacin Allergy Rash Verified 05/05/25 19:15 procaine HCl (From Novocain) Allergy Anaphylaxis Verified 05/05/25 19:15 tetracycline Allergy Rash Verified 05/05/25 19:15 omeprazole AdvReac Severe Diarrhea Verified 05/05/25 19:15 Family History Father Cancer Hypertension Respiratory disease Mother Diabetes Epilepsy Heart disease Brother CVA (cerebral vascular accident) Surgical History History of appendectomy History of cataract surgery History of total hysterectomy Social History household members: none Smoking Status: Never smoker alcohol intake: never substance use type: does not use additional social history: Does Take Aspirin Does Not Take Ibuprofen EXAM Physical Exam Const Vital Signs: 05/05/25 19:15 05/05/25 19:25 05/05/25 20:10 Temperature 98.1 F Temperature Source Temporal Pulse Rate 159 H 150 H Pulse Rate [1 (Initial Baseline)] Pulse Rate [2] Pulse Rate [3] Pulse Rate [4] Pulse Rate [5] Respiratory Rate 20 H 16 Respiratory Rate [1 (Initial Baseline)] Respiratory Rate [2] Respiratory Rate [3] Respiratory Rate [4] Respiratory Rate [5] Respiratory Effort Normal Non-Labored Blood Pressure 163/82 H 129/77 H Blood Pressure [1 (Initial Baseline)] Blood Pressure [2] Blood Pressure [3] Blood Pressure [4] Blood Pressure [5] Blood Pressure Mean 109 94 Baseline BP Pulse Ox 95 95 Oxygen Delivery Method Room Air Room Air Oxygen Delivery Method [1 (Initial Baseline)] Oxygen Delivery Method [2] Oxygen Delivery Method [3] Oxygen Delivery Method [4] Oxygen Delivery Method [5] Oxygen Flow Rate (L/min) Oxygen Flow Rate (L/min) [3] Oxygen Flow Rate (L/min) [4] Oxygen Flow Rate (L/min) [5] EtCo2 - Document during CPR and with ROSC EtCo2 - Document during CPR and with ROSC [1 (Initial Baseline)] EtCo2 - Document during CPR and with ROSC [2] EtCo2 - Document during CPR and with ROSC [3] EtCo2 - Document during CPR and with ROSC [4] EtCo2 - Document during CPR and with ROSC [5] 05/05/25 21:00 05/05/25 21:51 05/05/25 21:52 Temperature 98.0 F Temperature Source Pulse Rate 139 H 139 H Pulse Rate [1 (Initial Baseline)] Pulse Rate [2] Pulse Rate [3] Pulse Rate [4] Pulse Rate [5] Respiratory Rate 18 17 Respiratory Rate [1 (Initial Baseline)] Respiratory Rate [2] Respiratory Rate [3] Respiratory Rate [4] Respiratory Rate [5] Respiratory Effort Blood Pressure 121/81 H 132/76 H Blood Pressure [1 (Initial Baseline)] Blood Pressure [2] Blood Pressure [3] Blood Pressure [4] Blood Pressure [5] Blood Pressure Mean 94 Baseline BP 132/76 Pulse Ox 95 98 Oxygen Delivery Method Room Air Oxygen Delivery Method [1 (Initial Baseline)] Oxygen Delivery Method [2] Oxygen Delivery Method [3] Oxygen Delivery Method [4] Oxygen Delivery Method [5] Oxygen Flow Rate (L/min) Oxygen Flow Rate (L/min) [3] Oxygen Flow Rate (L/min) [4] Oxygen Flow Rate (L/min) [5] EtCo2 - Document during CPR and with ROSC 36 36 EtCo2 - Document during CPR and with ROSC [1 (Initial Baseline)] EtCo2 - Document during CPR and with ROSC [2] EtCo2 - Document during CPR and with ROSC [3] EtCo2 - Document during CPR and with ROSC [4] EtCo2 - Document during CPR and with ROSC [5] 05/05/25 22:01 05/05/25 22:14 05/05/25 22:31 Temperature Temperature Source Pulse Rate 139 H 68 Pulse Rate [1 (Initial Baseline)] 138 H Pulse Rate [2] 135 H Pulse Rate [3] 77 Pulse Rate [4] 73 Pulse Rate [5] 67 Respiratory Rate 16 16 Respiratory Rate [1 (Initial Baseline)] 16 Respiratory Rate [2] 18 Respiratory Rate [3] 19 H Respiratory Rate [4] 14 Respiratory Rate [5] 17 Respiratory Effort Blood Pressure 140/85 H 84/55 L Blood Pressure [1 (Initial Baseline)] 150/87 H Blood Pressure [2] 150/87 H Blood Pressure [3] 148/87 H Blood Pressure [4] 83/51 L Blood Pressure [5] 83/66 L Blood Pressure Mean 103 Baseline BP Pulse Ox 98 97 Oxygen Delivery Method Room Air Nasal Cannula Oxygen Delivery Method [1 (Initial Baseline)] Room Air Oxygen Delivery Method [2] Room Air Oxygen Delivery Method [3] Nasal Cannula Oxygen Delivery Method [4] Nasal Cannula Oxygen Delivery Method [5] Nasal Cannula Oxygen Flow Rate (L/min) 2 Oxygen Flow Rate (L/min) [3] 5 Oxygen Flow Rate (L/min) [4] 5 Oxygen Flow Rate (L/min) [5] 2 EtCo2 - Document during CPR and with ROSC 35 EtCo2 - Document during CPR and with ROSC [1 (Initial Baseline)] 36 EtCo2 - Document during CPR and with ROSC [2] 36 EtCo2 - Document during CPR and with ROSC [3] 33 EtCo2 - Document during CPR and with ROSC [4] 35 EtCo2 - Document during CPR and with ROSC [5] 34 05/05/25 22:36 05/05/25 22:41 05/05/25 22:47 Temperature Temperature Source Pulse Rate 68 68 68 Pulse Rate [1 (Initial Baseline)] Pulse Rate [2] Pulse Rate [3] Pulse Rate [4] Pulse Rate [5] Respiratory Rate 16 16 16 Respiratory Rate [1 (Initial Baseline)] Respiratory Rate [2] Respiratory Rate [3] Respiratory Rate [4] Respiratory Rate [5] Respiratory Effort Blood Pressure 89/58 L 96/57 L 100/63 Blood Pressure [1 (Initial Baseline)] Blood Pressure [2] Blood Pressure [3] Blood Pressure [4] Blood Pressure [5] Blood Pressure Mean 75 Baseline BP Pulse Ox 97 97 96 Oxygen Delivery Method Nasal Cannula Room Air Room Air Oxygen Delivery Method [1 (Initial Baseline)] Oxygen Delivery Method [2] Oxygen Delivery Method [3] Oxygen Delivery Method [4] Oxygen Delivery Method [5] Oxygen Flow Rate (L/min) 2 Oxygen Flow Rate (L/min) [3] Oxygen Flow Rate (L/min) [4] Oxygen Flow Rate (L/min) [5] EtCo2 - Document during CPR and with ROSC 36 33 EtCo2 - Document during CPR and with ROSC [1 (Initial Baseline)] EtCo2 - Document during CPR and with ROSC [2] EtCo2 - Document during CPR and with ROSC [3] EtCo2 - Document during CPR and with ROSC [4] EtCo2 - Document during CPR and with ROSC [5] 05/05/25 22:52 05/05/25 23:26 Temperature 98.1 F Temperature Source Pulse Rate 70 79 Pulse Rate [1 (Initial Baseline)] Pulse Rate [2] Pulse Rate [3] Pulse Rate [4] Pulse Rate [5] Respiratory Rate 16 18 Respiratory Rate [1 (Initial Baseline)] Respiratory Rate [2] Respiratory Rate [3] Respiratory Rate [4] Respiratory Rate [5] Respiratory Effort Blood Pressure 111/59 L 122/64 H Blood Pressure [1 (Initial Baseline)] Blood Pressure [2] Blood Pressure [3] Blood Pressure [4] Blood Pressure [5] Blood Pressure Mean 76 83 Baseline BP Pulse Ox 97 97 Oxygen Delivery Method Oxygen Delivery Method [1 (Initial Baseline)] Oxygen Delivery Method [2] Oxygen Delivery Method [3] Oxygen Delivery Method [4] Oxygen Delivery Method [5] Oxygen Flow Rate (L/min) Oxygen Flow Rate (L/min) [3] Oxygen Flow Rate (L/min) [4] Oxygen Flow Rate (L/min) [5] EtCo2 - Document during CPR and with ROSC EtCo2 - Document during CPR and with ROSC [1 (Initial Baseline)] EtCo2 - Document during CPR and with ROSC [2] EtCo2 - Document during CPR and with ROSC [3] EtCo2 - Document during CPR and with ROSC [4] EtCo2 - Document during CPR and with ROSC [5] MDM MDM MDM Narrative Medical decision making narrative: 84-year-old female with past medical history of proximal atrial fib on Eliquis, CKD, HLD, HTN presents for evaluation of palpitations. History taken by patient as well as cardiology note on 03/25. Has history of atrial fibrillation with RVR. Recently had her medication changed due to same complaint. On presentation, patient is in atrial fibrillation with RVR. Will give diltiazem bolus with cardiac workup. EKG and chest x-ray reviewed see below. CBC without leukocytosis. Patient has hemoconcentration with a hemoglobin of 15.2. Has had this in the past. Platelet count unremarkable. Coagulation panel unremarkable. BMP unremarkable except for hyperglycemia. Magnesium level unremarkable. BNP unremarkable. Troponin 17, I suspect the elevation is secondary to her A-fib with RVR. She is not having any chest pain. This is down from her troponin in February. On reevaluation, patient's heart rate still remained in the 130s. She has not missed any doses of her Eliquis. She has received cardioversion in the past in our emergency department and did well. On chart review she received propofol and was cardioverted with [address] I spoke with [address] Jimenez with cardiology, agrees with cardioversion. Per cardiology recommendations plan is for no change in blood pressure medication if patient is having issue with low blood pressure at home however if blood pressure has been well at home okay to increase metoprolol to 50 mg twice daily and follow-up in the office. On speaking with the patient she states she has been having issues with her blood pressure, states that it has been periodically low at home therefore will not change her medications. Patient was cardioverted and tolerated this well. Converted to normal sinus rhythm. After cardioversion patient was hypotensive likely secondary to the propofol. Blood pressure improved with fluids. She ambulated without difficulty. Patient asymptomatic. Patient stable to discharge home. Told to continue her Eliquis and medications. Follow-up with cardiology. Return precautions discussed. She confirmed understanding of plan. Patient stable to discharge home. Cardioversion Indication: Atrial fibrillation with RVR Consent: Risks, benefits, and alternatives discussed with patient and consent obtained Anesthesia: 50 mg propofol Procedure: The appropriate time-out was performed including proper identification of the patient, procedure, documentation. The patient was placed in the supine position and hands-free pads were placed on the patient's chest. 1 shock was provided at 200 Joules with successful resumption of normal sinus rhythm. This was confirmed on EKG. Complications: The patient tolerated the procedure well EKG: Interpreted by me/EM physician: EKG shows atrial fibrillation with RVR. Heart rate 149. Repeat EKG shows normal sinus rhythm with PACs. No acute ischemic changes. Heart rate 67. Diagnostic: Interpreted by me/EM physician: Chest x-ray without pneumonia, effusion, pneumothorax. Mild cardiomegaly. Radiology in agreement. 35 minutes of critical care time utilized in managing the patient. This is due to high probability of and deterioration of the patient based on the patient's condition and excludes any separately billable procedures. Impression: 1. Atrial fibrillation with RVR, converted to normal sinus rhythm with electrical cardioversion 2. History of atrial fibrillation with RVR Lab Data Labs: Laboratory Results - last 24 hr 05/05/25 19:42 WBC 6.5 RBC 5.07 Hgb 15.2 H Hct 45.2 MCV 89.2 MCH 30.0 MCHC 33.6 RDW Std Deviation 46.2 H RDW Coeff of Bob 14.2 Plt Count 220 MPV 10.5 Immature Gran % (Auto) 0.500 Neut % (Auto) 47.6 Lymph % (Auto) 40.8 Franklin % (Auto) 8.5 Eos % (Auto) 2.0 Baso % (Auto) 0.6 Absolute Neuts (auto) 3.1 Absolute Lymphs (auto) 2.65 Nucleated RBC % 0 PT 13.5 INR 1.0 APTT 27.0 Sodium 139 Potassium 3.7 Chloride 101 Carbon Dioxide 23.3 Anion Gap 15 BUN 14 Creatinine 0.89 Estim Creat Clear Calc 45.85 L Est GFR (MDRD) Non-Af 64 BUN/Creatinine Ratio 15.3 Glucose 156 H Calcium 9.6 Magnesium 2.1 Troponin T High Sens 17 H D NT pro BNP II 509 Radiography Diagnostic Testing: Clinical Impression(s) from Imaging Studies Chest X-Ray 05/05/25 19:50 IMPRESSION: Stable mild cardiomegaly. Reading Location: [id number] Discharge Plan Triage Chief Complaint: Palpitations ED Provider: Dwight Patricia Dx/Rx/DC Orders Clinical Impression: Atrial fibrillation with RVR Instructions: AFib Dc, Procedural Sedation Prescriptions: No Action diltiazem HCl 120 mg capsule,extended release 24hr 120 mg PO QDAY Qty: 90 3RF furosemide [Lasix] 20 mg tablet 20 mg PO DAILY PRN (Reason: edema) Qty: 30 1RF potassium chloride 10 mEq tablet extended release 10 meq PO DAILY PRN (Reason: with the lasix) Qty: 30 1RF simvastatin 10 MG tablet 10 mg PO QHS pantoprazole [Protonix] 40 mg tablet,delayed release (DR/EC) 40 mg PO DAILY sennosides [Senokot] 8.6 mg tablet 8.6 mg PO DAILY Eliquis 5 mg Tablet 5 mg PO BID Qty: 60 2RF metoprolol tartrate 25 mg tablet 25 mg PO BID Qty: 180 3RF Primary Care Provider: Jacquie Coleman Referrals: Jozef Pena MD [Med Staff - Active Staff] - 3-5 Days Jacquie Coleman MD [Primary Care Provider] - 3-5 Days Activity Restrictions/Additional Instructions: Follow-up with cardiology. Return back to the ED if symptoms change or worsen. Continue your medications. Print Language: Urdu Disposition Disposition: Home, Self Care Discharge Date/Time: 05/05/25 23:28
[2025-05-05] MEDS: dilTIAZem 25 MG/5 ML Vial 20 MG IV BOLUS (20:09)
[2025-05-05 20:10] LABS: Absolute Lymphocyte Count 2.65 X10^3/uL (0.83-4.51); Absolute Neutrophil Count 3.1 X10^3/uL (2.0-7.7); Basophil# 0.04 X10^3/uL; Basophil% 0.6 % (0-1); Eosinophil# 0.13 X10^3/uL; Hematocrit 45.2 % (37-47); Hemoglobin 15.2 g/dL (12.0-15.0); Lymphocyte # 2.65 X10^3/ul (0.83-4.51); Lymphocyte % 40.8 % (19-41); Mean Corp Hgb Conc 33.6 g/dL (32-36); Mean Corpuscular Volume 89.2 fL (81-99); Mean Platelet Vol. 10.5 fl (6.2-12.0); Monocyte# 0.55 X10^3/uL; Monocyte% 8.5 % (0-10); NRBC Flagged by Analyzer 0 % (0-5); Neutrophil # 3.09 X10^3/uL (2.7-7.7); Neutrophil % 47.6 % (47-70); Platelet Count 220 K/mm3 (150-450); RBC Distribution Width CV 14.2 % (11.6-14.6); RBC Distribution Width SD 46.2 fl (35.1-43.9); Red Blood Count 5.07 M/mm3 (4.2-5.4); White Blood Count 6.5 K/mm3 (4.4-11.0)
[2025-05-05 20:17] LABS: Prothrombin Time (Protime)PT. 13.5 SECONDS (11.7-14.9)
[2025-05-05 20:37] LABS: Anion Gap 15 (5-15); BUN 14 mg/dL (4-19); BUN/Creat Ratio 15.3 RATIO (10-20); Calcium,Total 9.6 mg/dL (7.6-11.0); Carbon Dioxide 23.3 mmol/L (21.0-32.0); Chloride 101 mmol/L (98-108); Creatinine, Serum 0.89 mg/dL (0.70-1.20); EST Glomerular Filtration Rate 64 (>60); Estimated Creatinine Clearance 45.85 ml/min (50-250); Glucose 156 mg/dL (70-99); Magnesium 2.1 mg/dL (1.5-2.2); Potassium 3.7 mmol/L (3.3-5.1); Pro- Brain NATRIURETIC PEPTIDE 509 pg/mL (<=1800); Sodium Level 139 mmol/L (133-145)
[2025-05-05 20:54] LABS: Troponin T High Sensitivity 17 ng/L (<=14)
[2025-05-05] MEDS: Propofol 200 MG/20 ML Vial IV BOLUS (21:51)
== END 2025-05-05 23:28 | disposition home or self-care (01) ==
PROVIDERS: Emergency Provider Surgery; PCP Family Medicine; Visit Provider Surgery
DX: I48.91 Unspecified atrial fibrillation (principal); N18.30 Chronic kidney disease, stage 3 unspecified; I12.9 Hypertensive chronic kidney disease with stage 1 through stage 4 chronic kidney disease, or unspecified chronic kidney disease; E78.5 Hyperlipidemia, unspecified; Z90.710 Acquired absence of both cervix and uterus; R73.9 Hyperglycemia, unspecified; Z79.01 Long term (current) use of anticoagulants; I51.7 Cardiomegaly
CPT/HCPCS: 71046; 80048; 83735; 83880; 84484; 85025; 85610; 85730; 93005; 99152; 99283; A4216

== ENCOUNTER 2025-05-30 10:56 | Emergency (ER) | payer MEDICARE, OTHER, SELFPAY ==
[2025-05-30] VITALS (15 sets, daily range): BP systolic 76–152; BP diastolic 48–101; PULSE 55–147; RESP 12–18; TEMP 36.6–36.7; O2SAT 85–98; BMI 30.4
--- NOTE | 2025-05-30 11:06 | EKG12_ITS ---
Test Reason : REPEAT Blood Pressure : */* mmHG Vent. Rate : 118 BPM Atrial Rate : * BPM P-R Int : * ms QRS Dur : 128 ms QT Int : 354 ms P-R-T Axes : * -71 43 degrees QTcB Int : 496 ms Atrial fibrillation with rapid ventricular response Left axis deviation Right bundle branch block Abnormal ECG Confirmed by GRAHAM CAN, LUBNA ([id number]), news editor GRIFFIN MARIE ([id number]) on 05/31/2025 8:24:52 AM Referred By: Confirmed By: LUBNA STEVENSON MD
--- NOTE | 2025-05-30 11:06 | EKG12_ITS ---
Test Reason : REPEAT Blood Pressure : */* mmHG Vent. Rate : 118 BPM Atrial Rate : * BPM P-R Int : * ms QRS Dur : 128 ms QT Int : 354 ms P-R-T Axes : * -71 43 degrees QTcB Int : 496 ms Atrial fibrillation with rapid ventricular response Left axis deviation Right bundle branch block Abnormal ECG Confirmed by GRAHAM CAN, LUBNA ([id number]), multimedia editor GRIFFIN MARIE ([id number]) on 05/31/2025 8:24:52 AM Referred By: Confirmed By: LUBNA STEVENSON MD
--- NOTE | 2025-05-30 11:20 | RAD_ITS ---
PROCEDURE: CHEST PA AND LATERAL 05/30/2025 REASON FOR EXAM: CHEST PAIN TECHNIQUE: CHEST PA AND LATERAL COMPARISON: Chest radiographs May 05, 2025 FINDINGS: Hardware: None. Heart: Normal size. Mediastinum: Unremarkable contour Lungs: Clear Bones: No aggressive process RAD/Chest PA and Lateral IMPRESSION: Negative for acute process. No significant interval change. Reading [facility]
--- NOTE | 2025-05-30 11:20 | RAD_ITS ---
PROCEDURE: CHEST PA AND LATERAL 05/30/2025 REASON FOR EXAM: CHEST PAIN TECHNIQUE: CHEST PA AND LATERAL COMPARISON: Chest radiographs May 05, 2025 FINDINGS: Hardware: None. Heart: Normal size. Mediastinum: Unremarkable contour Lungs: Clear Bones: No aggressive process RAD/Chest PA and Lateral IMPRESSION: Negative for acute process. No significant interval change. Reading [facility]
[2025-05-30 11:29] LABS: Hematocrit 45.9 % (37-47); Hemoglobin 15.4 g/dL (12.0-15.0); Immature Granulocytes Count 0.030 X10^3/uL (0.0-0.0); Mean Corp Hgb Conc 33.6 g/dL (32-36); Mean Corpuscular Volume 90.0 fL (81-99); Mean Platelet Vol. 10.2 fl (6.2-12.0); NRBC Flagged by Analyzer 0 % (0-5); Platelet Count 238 K/mm3 (150-450); RBC Distribution Width CV 14.6 % (11.6-14.6); RBC Distribution Width SD 47.8 fl (35.1-43.9); Red Blood Count 5.10 M/mm3 (4.2-5.4); White Blood Count 7.4 K/mm3 (4.4-11.0)
[2025-05-30 11:45] LABS: Anion Gap 13 (5-15); BUN 12 mg/dL (4-19); BUN/Creat Ratio 14.2 RATIO (10-20); Calcium,Total 9.6 mg/dL (7.6-11.0); Carbon Dioxide 23.0 mmol/L (21.0-32.0); Chloride 105 mmol/L (98-108); Estimated Creatinine Clearance 48.58 ml/min (50-250); Glucose 114 mg/dL (70-99); Potassium 4.1 mmol/L (3.3-5.1)
[2025-05-30 11:47] LABS: Troponin T High Sensitivity 22 ng/L (<=14)
[2025-05-30 12:00] LABS: Prothrombin Time (Protime)PT. 15.7 SECONDS (11.7-14.9)
--- NOTE | 2025-05-30 13:18 | ED.VIS.CHEST ---
HPI History of Present Illness Chief Complaint: Palpitations Narrative Narrative: Chief complaint and HPI: Palpitations. 84-year-old female with past medical history of paroxysmal atrial fibrillation on Eliquis requiring multiple electrocardioversion's, CKD, HLD, HTN presents for evaluation of palpitations. Patient has presented for the same complaint multiple times in our emergency department in which I have seen her. When she develops palpitations she is usually in A-fib with RVR. Patient was recently seen on 05/05/2025. At that time she had electrocardioversion with 200 J and converted to normal sinus rhythm. I had spoken to cardiology at that time who recommended increasing her metoprolol to 50 mg twice daily if she was not having low blood pressure. Patient was having low blood pressure at home therefore this was not changed. She was told to follow-up with cardiology. Patient states she called the cardiology office and never received any notification back. She talked to her primary care physician who increased her diltiazem to 120 mg twice daily. She is still on metoprolol 25 mg twice daily. She has not missed any doses of her Eliquis. Patient states her palpitations started this morning when she woke up. Noticed her heart rate was elevated. States she took all of her medication without improvement. Denies any chest pain, shortness of breath, bilateral lower extremity swelling or pain. Review of systems: See HPI Medications: As listed on the chart Allergies: As listed on the chart PFSH: Per chart Vital signs: As listed on the chart. Reviewed. Physical exam: Gen: A&O x3, NAD Head: Normocephalic, atraumatic Eyes: No sclera icterus, conjunctiva clear ENT: Moist mucous membranes Neck: Trachea midline, No JVD CV: Tachycardic, irregular irregular rhythm, no murmurs, no peripheral edema Resp: Lungs CTA BL, no w/r/c GI: Abd soft, non-distended, non-tender, no r/r/g Musc: Full ROM, no deformity Skin: Warm, dry Neuro: Alert, oriented, grossly intact, sensation intact Psych: Cooperative, appropriate mood and affect [facility] Medical History Atrial fibrillation with RVR Cardiac murmur Cataracts, bilateral CKD (chronic kidney disease), stage III GERD (gastroesophageal reflux disease) HLD (hyperlipidemia) Hypertension Obesity Palpitations Vitamin D deficiency Home Medications ?Medication ?Instructions ?Recorded ?Last Taken ?Type simvastatin 10 mg tablet 10 mg PO QHS 06/24/16 05/29/25 History pantoprazole 40 mg tablet,delayed 40 mg PO DAILY 12/30/24 05/29/25 History release (Protonix) apixaban 5 mg tablet (Eliquis) 5 mg PO BID #60 tabs 12/31/24 05/30/25 Rx sennosides 8.6 mg tablet (Senokot) 8.6 mg PO DAILY 12/31/24 05/29/25 History metoprolol tartrate 25 mg tablet 25 mg PO BID #180 tabs 03/21/25 05/30/25 Rx furosemide 20 mg tablet (Lasix) 20 mg PO DAILY PRN edema #30 tabs 03/25/25 05/29/25 Rx potassium chloride 10 mEq 10 meq PO DAILY PRN with the lasix 03/25/25 05/29/25 Rx tablet,extended release #30 tabs diltiazem HCl 120 mg 120 mg PO BID #0 caps 05/13/25 05/30/25 Rx capsule,extended release 24 hr digoxin 125 mcg (0.125 mg) tablet 125 mcg PO DAILY 30 days #30 tabs 05/30/25 Unknown Rx Allergy/AdvReac Type Severity Reaction Status Date / Time morphine Allergy Anaphylaxis Verified 05/30/25 10:59 niacin Allergy Rash Verified 05/30/25 10:59 procaine HCl (From Novocain) Allergy Anaphylaxis Verified 05/30/25 10:59 tetracycline Allergy Rash Verified 05/30/25 10:59 omeprazole AdvReac Severe Diarrhea Verified 05/30/25 10:59 Family History Father Cancer Hypertension Respiratory disease Mother Diabetes Epilepsy Heart disease Brother CVA (cerebral vascular accident) Surgical History History of appendectomy History of cataract surgery History of total hysterectomy Social History household members: none Smoking Status: Never smoker alcohol intake: never substance use type: does not use additional social history: Does Take Aspirin Does Not Take Ibuprofen EXAM Physical Exam Const Vital Signs: 05/30/25 10:56 05/30/25 11:56 05/30/25 11:56 Temperature 98.1 F 97.8 F Temperature Source Oral Temporal Pulse Rate 147 H 126 H Pulse Rate [1 (Initial Baseline)] Pulse Rate [2] Respiratory Rate 16 12 Respiratory Rate [1 (Initial Baseline)] Respiratory Rate [2] Respiratory Effort Blood Pressure 137/88 H 138/91 H Blood Pressure [1 (Initial Baseline)] Blood Pressure Mean 104 106 Baseline BP Pulse Ox 93 95 Oxygen Delivery Method Room Air Room Air Room Air Oxygen Delivery Method [1 (Initial Baseline)] Oxygen Delivery Method [2] Oxygen Flow Rate (L/min) [2] EtCo2 - Document during CPR and with ROSC EtCo2 - Document during CPR and with ROSC [1 (Initial Baseline)] EtCo2 - Document during CPR and with ROSC [2] 05/30/25 11:56 05/30/25 12:59 05/30/25 13:01 Temperature Temperature Source Pulse Rate 130 H 117 H Pulse Rate [1 (Initial Baseline)] Pulse Rate [2] Respiratory Rate 14 14 Respiratory Rate [1 (Initial Baseline)] Respiratory Rate [2] Respiratory Effort Normal Blood Pressure 123/81 H Blood Pressure [1 (Initial Baseline)] Blood Pressure Mean 95 Baseline BP Pulse Ox 96 95 Oxygen Delivery Method Oxygen Delivery Method [1 (Initial Baseline)] Oxygen Delivery Method [2] Oxygen Flow Rate (L/min) [2] EtCo2 - Document during CPR and with ROSC EtCo2 - Document during CPR and with ROSC [1 (Initial Baseline)] EtCo2 - Document during CPR and with ROSC [2] 05/30/25 13:18 05/30/25 13:39 05/30/25 14:01 Temperature Temperature Source Pulse Rate 103 H 129 H 119 H Pulse Rate [1 (Initial Baseline)] Pulse Rate [2] Respiratory Rate 15 Respiratory Rate [1 (Initial Baseline)] Respiratory Rate [2] Respiratory Effort Blood Pressure 152/76 H Blood Pressure [1 (Initial Baseline)] Blood Pressure Mean 101 Baseline BP Pulse Ox 96 Oxygen Delivery Method Oxygen Delivery Method [1 (Initial Baseline)] Oxygen Delivery Method [2] Oxygen Flow Rate (L/min) [2] EtCo2 - Document during CPR and with ROSC EtCo2 - Document during CPR and with ROSC [1 (Initial Baseline)] EtCo2 - Document during CPR and with ROSC [2] 05/30/25 14:45 05/30/25 14:53 05/30/25 14:58 Temperature Temperature Source Pulse Rate 133 H 63 Pulse Rate [1 (Initial Baseline)] 138 H Pulse Rate [2] 70 Respiratory Rate 17 13 Respiratory Rate [1 (Initial Baseline)] 16 Respiratory Rate [2] 18 Respiratory Effort Blood Pressure 133/101 H 98/58 L Blood Pressure [1 (Initial Baseline)] 126/92 H Blood Pressure Mean Baseline BP 133/101 Pulse Ox 98 92 Oxygen Delivery Method Room Air Oxygen Delivery Method [1 (Initial Baseline)] Room Air Oxygen Delivery Method [2] Nasal Cannula Oxygen Flow Rate (L/min) [2] 3 EtCo2 - Document during CPR and with ROSC 21 12 EtCo2 - Document during CPR and with ROSC [1 (Initial Baseline)] 19 EtCo2 - Document during CPR and with ROSC [2] 19 05/30/25 14:58 05/30/25 15:03 05/30/25 15:09 Temperature Temperature Source Pulse Rate 60 61 55 L Pulse Rate [1 (Initial Baseline)] Pulse Rate [2] Respiratory Rate 13 13 15 Respiratory Rate [1 (Initial Baseline)] Respiratory Rate [2] Respiratory Effort Blood Pressure 80/48 L 84/50 L 76/65 L Blood Pressure [1 (Initial Baseline)] Blood Pressure Mean 68 Baseline BP Pulse Ox 97 93 95 Oxygen Delivery Method Room Air Room Air Room Air Oxygen Delivery Method [1 (Initial Baseline)] Oxygen Delivery Method [2] Oxygen Flow Rate (L/min) [2] EtCo2 - Document during CPR and with ROSC 23 11 EtCo2 - Document during CPR and with ROSC [1 (Initial Baseline)] EtCo2 - Document during CPR and with ROSC [2] 05/30/25 15:22 05/30/25 15:25 05/30/25 16:07 Temperature 97.8 F Temperature Source Pulse Rate 55 L Pulse Rate [1 (Initial Baseline)] Pulse Rate [2] Respiratory Rate 15 Respiratory Rate [1 (Initial Baseline)] Respiratory Rate [2] Respiratory Effort Blood Pressure 97/62 111/54 L 111/54 L Blood Pressure [1 (Initial Baseline)] Blood Pressure Mean 73 73 73 Baseline BP Pulse Ox 95 Oxygen Delivery Method Oxygen Delivery Method [1 (Initial Baseline)] Oxygen Delivery Method [2] Oxygen Flow Rate (L/min) [2] EtCo2 - Document during CPR and with ROSC EtCo2 - Document during CPR and with ROSC [1 (Initial Baseline)] EtCo2 - Document during CPR and with ROSC [2] MDM MDM MDM Narrative Medical decision making narrative: 84-year-old female with past medical history of paroxysmal atrial fibrillation on Eliquis requiring multiple electrocardioversion's, CKD, HLD, HTN presents for evaluation of palpitations. History taken by patient as well as medical record. See HPI. Patient has presented for the same complaint multiple times in our emergency department in which I have seen her. When she develops palpitations she is usually in A-fib with RVR. On presentation, patient is tachycardic with a heart rate in the 140s. She is in atrial fibrillation with RVR. Given that patient has not missed any doses of her Eliquis this makes her a candidate for electrical cardioversion. I did discuss this with the patient. She states she would prefer not to have this performed if possible therefore IV bolus diltiazem ordered. Cardiac workup ordered. Differential diagnosis includes but is not limited to proximal atrial fibrillation with RVR, electrolyte abnormality, anemia, DEMETRI, suspect less likely ACS as patient not having chest pain, CHF exacerbation. EKG and chest x-ray reviewed see below. CBC without leukocytosis. Patient has hemoconcentration of 15.4. She has had this in the past with previous labs. Platelets unremarkable. INR unremarkable. BMP unremarkable without significant electrolyte abnormality or DEMETRI. BNP unremarkable. Troponin elevated at 22, previously it was 17 and 24. I suspect that the mild elevation is secondary to the atrial fibrillation with RVR. Patient not having any chest pain. Initially, patient's heart rate improved with the diltiazem IV bolus however is now increased to the 130s. Patient will warrant electrocardioversion. Risk and benefits were discussed and patient consented. Patient was cardioverted and tolerated this well. Converted to normal sinus rhythm. After cardioversion patient was hypotensive likely secondary to the propofol. Blood pressure improved with fluids. She ambulated without difficulty. Patient asymptomatic. Given her recurrent atrial fibrillation with RVR, I did reach out to cardiology for consult. I spoke with Dr. Heath. Recommendation is to continue her metoprolol and diltiazem twice daily and add digoxin 125 mcg daily. Follow-up in their office. Patient was educated on the recommendations and prescription was written. Follow-up with cardiology. Return precautions discussed. She confirmed understanding of plan. Patient stable to discharge home. Cardioversion Indication: Atrial fibrillation with RVR Consent: Risks, benefits, and alternatives discussed with patient and consent obtained Anesthesia: 50 mg propofol Procedure: The appropriate time-out was performed including proper identification of the patient, procedure, documentation. The patient was placed in the supine position and hands-free pads were placed on the patient's chest. 1 shock was provided at 200 Joules with successful resumption of normal sinus rhythm. This was confirmed on EKG. Complications: The patient tolerated the procedure well EKG: Interpreted by me/EM physician: A-fib with RVR. Heart rate 135. Repeat EKG shows atrial fibrillation with RVR. Heart rate 118. Repeat EKG shows normal sinus rhythm with PVCs. Diagnostic: Interpreted by me/EM physician: Chest x-ray without effusion, cardiomegaly, pneumothorax, pneumonia, radiology in agreement. 35 minutes of critical care time utilized in managing the patient. This is due to high probability of and deterioration of the patient based on the patient's condition and excludes any separately billable procedures. Impression: 1. Atrial fibrillation with RVR, s/p electrocardioversion to normal sinus rhythm 2. History of paroxysmal atrial fibrillation Lab Data Labs: Laboratory Results - last 24 hr 05/30/25 11:05 WBC 7.4 RBC 5.10 Hgb 15.4 H Hct 45.9 MCV 90.0 MCH 30.2 MCHC 33.6 RDW Std Deviation 47.8 H RDW Coeff of Bob 14.6 Plt Count 238 MPV 10.2 Immature Gran % (Auto) 0.400 Neut % (Auto) 62.3 Lymph % (Auto) 28.9 [place] % (Auto) 7.0 Eos % (Auto) 0.7 Baso % (Auto) 0.7 Absolute Neuts (auto) 4.6 Absolute Lymphs (auto) 2.15 Nucleated RBC % 0 PT 15.7 H INR 1.2 Sodium 142 Potassium 4.1 Chloride 105 Carbon Dioxide 23.0 Anion Gap 13 BUN 12 Creatinine 0.82 Estim Creat Clear Calc 48.58 L Est GFR (MDRD) Non-Af 71 BUN/Creatinine Ratio 14.2 Glucose 114 H Calcium 9.6 Troponin T High Sens 22 H D NT pro BNP II 784 Radiography Diagnostic Testing: Clinical Impression(s) from Imaging Studies Chest X-Ray 05/30/25 11:20 IMPRESSION: Negative for acute process. No significant interval change. Reading Location: [facility] Discharge Plan Triage Chief Complaint: Palpitations ED Provider: Dwight Patricia Dx/Rx/DC Orders Clinical Impression: Atrial fibrillation with rapid ventricular response Instructions: ED AFIB Prescriptions: New digoxin 125 mcg (0.125 mg) tablet 125 mcg PO DAILY 30 Days Qty: 30 0RF No Action furosemide [Lasix] 20 mg tablet 20 mg PO DAILY PRN (Reason: edema) Qty: 30 1RF potassium chloride 10 mEq tablet extended release 10 meq PO DAILY PRN (Reason: with the lasix) Qty: 30 1RF simvastatin 10 MG tablet 10 mg PO QHS pantoprazole [Protonix] 40 mg tablet,delayed release (DR/EC) 40 mg PO DAILY sennosides [Senokot] 8.6 mg tablet 8.6 mg PO DAILY Eliquis 5 mg Tablet 5 mg PO BID Qty: 60 2RF metoprolol tartrate 25 mg tablet 25 mg PO BID Qty: 180 3RF diltiazem HCl 120 mg capsule,extended release 24hr 120 mg PO BID Qty: 0 0RF Primary Care Provider: Jacquie Coleman Referrals: Jozef Pena MD [Med Staff - Active Staff] - 3-5 Days Jacquie Coleman MD [Primary Care Provider] - 3-5 Days Activity Restrictions/Additional Instructions: Follow-up with cardiology. Start digoxin tomorrow and continue the same dose of diltiazem and metoprolol. Call cardiology office tomorrow to make an appointment. Return back to the ED if symptoms change or worsen. Print Language: Romansh Disposition Disposition: Home, Self Care Discharge Date/Time: 05/30/25 16:08
--- NOTE | 2025-05-30 14:23 | EKG12_ITS ---
Test Reason : CP Blood Pressure : */* mmHG Vent. Rate : 135 BPM Atrial Rate : 133 BPM P-R Int : * ms QRS Dur : 128 ms QT Int : 330 ms P-R-T Axes : * -74 47 degrees QTcB Int : 495 ms Atrial fibrillation Right bundle branch block Left anterior fascicular block Bifascicular block Abnormal ECG Confirmed by GRAHAM CAN, LUBNA ([id number]), research editor GRIFFIN MARIE ([id number]) on 05/31/2025 8:24:42 AM Referred By: AK/TB Confirmed By: LUBNA STEVENSON MD
--- NOTE | 2025-05-30 14:23 | EKG12_ITS ---
Test Reason : CP Blood Pressure : */* mmHG Vent. Rate : 135 BPM Atrial Rate : 133 BPM P-R Int : * ms QRS Dur : 128 ms QT Int : 330 ms P-R-T Axes : * -74 47 degrees QTcB Int : 495 ms Atrial fibrillation Right bundle branch block Left anterior fascicular block Bifascicular block Abnormal ECG Confirmed by GRAHAM CAN, LUBNA ([id number]), photograph editor GRIFFIN MARIE ([id number]) on 05/31/2025 8:24:42 AM Referred By: AK/TB Confirmed By: LUBNA STEVENSON MD
[2025-05-30 14:27] LABS: Pro- Brain NATRIURETIC PEPTIDE 784 pg/mL (<=1800)
--- NOTE | 2025-05-30 14:50 | EKG12_ITS ---
Test Reason : REPEAT X2 Blood Pressure : */* mmHG Vent. Rate : 62 BPM Atrial Rate : 62 BPM P-R Int : 198 ms QRS Dur : 132 ms QT Int : 458 ms P-R-T Axes : 64 -58 26 degrees QTcB Int : 464 ms Sinus rhythm with Premature supraventricular complexes and with occasional Premature ventricular complexes Right bundle branch block Left anterior fascicular block Bifascicular block Abnormal ECG Confirmed by LUBNA STEVENSON MD ([id number]), features editor GRIFFIN MARIE ([id number]) on 05/31/2025 8:25:11 AM Referred By: Confirmed By: LUBNA STEVENSON MD
--- NOTE | 2025-05-30 14:50 | EKG12_ITS ---
Test Reason : REPEAT X2 Blood Pressure : */* mmHG Vent. Rate : 62 BPM Atrial Rate : 62 BPM P-R Int : 198 ms QRS Dur : 132 ms QT Int : 458 ms P-R-T Axes : 64 -58 26 degrees QTcB Int : 464 ms Sinus rhythm with Premature supraventricular complexes and with occasional Premature ventricular complexes Right bundle branch block Left anterior fascicular block Bifascicular block Abnormal ECG Confirmed by LUBNA STEVENSON MD ([id number]), editorial cartoonist GRIFFIN MARIE ([id number]) on 05/31/2025 8:25:11 AM Referred By: Confirmed By: LUBNA STEVENSON MD
--- OUTSIDE RECORDS SUMMARY | 2025-06-02 01:40 | XMS RPT_ITS | CCD ---
Author Organization [facility] CliniSyny Care Team Providers Care Tutoring Manager Name Role Phone Dr. Jacquie Coleman Primary Care Provider [phone] Dr. Jozef Pena Attending Provider Dr. Jacquie Coleman Primary Care Provider [phone] Dr. Jacquie Coleman Referring Provider ART Aguirre Attending Provider Jared CAN, Dr. Dhillon Primary Care Provider Harshad HATCH, Dr. Quintanilla Referring Provider Harshad HATCH, Dr. Quintanilla Emergency Provider Kian CAN, Dr. Edda Lawrence Admit Provider Kian CAN, Dr. Edda Lawrence Other Provider Sravanthi CAN, Dr. Elisabet Gonzalez [facility]ending [facility] Other Provider Dr. Jozef Pena MD Attending Provider Dr. Elisabet Fishman MD Other Provider Dr. Jacquie Coleman MD Attending Provider [phone] Dr. Jacquie Coleman MD Referring Provider [phone] Dr. Jozef Pena MD Referring Provider Dr. Jozef Pena MD Other Provider Dr. Omid Foley DO Emergency Provider Dr. Jacquie Coleman MD Primary Care Provider Jean CAN, Dr. Haskins Attending Provider Dr. Omid Foley DO Attending Provider [phone] [facility] , Dr. Quintanilla [facility]ending [facility] Dr. Quintanilla Emergency Provider Brittney Rinaldi Attending Provider White, Edda L Consulting Unavailable White, Edda L Admitting Unavailable Koram, Elisabet Lisa Attending Unavailable Klusty-Tamica, Dwight Referring Unavailabl e Miedel, Jacquie Primary Care Unavailable Mosteller, Robert Consulting Unavailable Miedel, Jacquie Primary Care Unavailable Jean, Jozef Attending Unavailable Jean, Jozef Referring Unavailable Miedel, Jacquie Primary Care Unavailable Miedel, Jacquie Attending Unavailable Miedel, Jacquie Referring Unavailable Miedel, Jacquie Attending Unavailable Miedel, Jacquie Primary Care Unavailable Jean, Jozef Attending Unavailable Miedel, Jacquie Primary Care Unavailable Miedel, Jacquie Primary Care Unavailable Jean, [place]more Attending Unavailable Jean, Jozef Consulting Unavailable Jean, Jozef Referring Unavailable White, Edda L Attending Unavailable White, Edda L Consulting Unavailable White, Edda L Admitting Unavailable Klusty-Tamica, Dwight Referring Unavailabl e Miedel, Jacquie Primary Care Unavailable Koram, Elisabet Lisa Attending Unavailable Mosteller, Robert Consulting Unavailable Koram, Elisabet Lisa Consulting Unavailable Miedel, Jacquie Primary Care Unavailable Miedel, Jacquie Referring Unavailable Jean, [place] Attending Unavailable Miedel, Jacquie Primary Care Unavailable Miedel, Jacquie Referring Unavailable Brittney Rinaldi Attending Unavail able Miedel, Jacquie Attending Unavailable Miedel, Jacquie Primary Care Unavailable Miedel, Jacquie Primary Care Unavailable Klusty-TamicaDwight ramirez Attending Unavailabl e Miedel, Jacquie Primary Care Unavailable Klusty-TamicaDwight escobar Attending Unavailabl e Miedel, Jacquie Primary Care Unavailable Omid Foley Attending Unavailable Miedel MD, Dr. Dhillon Primary Care Provider Allergies Allergy Classification Reported Allergen(s) Allergy Type Date of Onset Reaction(s) Facility (11 sources) Morphine Drug Allergy 1 Anaphylaxis [facility] (11 sources) Niacin Drug Allergy 1 [facility] (12 sources) Procaine; Translations: [procaine HCl] Drug Allergy 1 Anaphylaxis [facility] (11 sources) Tetracycline Drug Allergy 1 Unknown, Rash [facility] (4 sources) Omeprazole Drug Allergy 5 Diarrhea [facility] (1 source) Morphine Drug Allergy 5 [facility] (1 source) Niacin Drug Allergy 5 [facility] (1 source) Omeprazole Drug Allergy 5 [facility] (1 source) Tetracycline Drug Allergy 5 [facility] Medications Current Medications Medication Drug Class(es) Dates Sig (Normalized) Sig (Original) apixaban 5 mg oral tablet (4 sources) Factor Xa Inhibitor Start: 12-31-2024 take 1 tablet by mouth twice daily Apixaban (Eliquis) 5 mg Tablet Active 5 mg PO TWICE A DAY 60 2 December 31, 2024 1:00am digoxin 0.125 mg oral tablet (1 source) Cardiac Glycoside Start: 05-30-2025 take 1 tablet by mouth once daily Digoxin 125 mcg (0.125 mg) tablet Active 125 ug PO DAILY 30 30 0 May 30, 2025 12:00am 24 hr dilTIAZem hydrochloride 120 mg extended release oral capsule (7 sources) Calcium Channel Shadi Start: 05-13-2025 take 1 capsule by mouth twice daily Diltiazem Hcl 120 mg capsule,extended release 24hr Active 120 mg PO TWICE A DAY 0 0 May 13, 2025 11:50am Start: 03-25-2025 End: 05-13-2025 take 1 capsule by mouth once daily Diltiazem Hcl 120 mg capsule,extended release 24hr Discontinued 120 mg PO daily 90 3 March 25, 2025 9:50am May 13, 2025 11:50am Start: 12-31-2024 End: 05-02-2025 take 1 capsule by mouth twice daily Diltiazem Hcl 120 mg Capsule,Extended Release 24hr Discontinued 120 mg PO TWICE A DAY 60 2 December 31, 2024 1:00am March 25, 2025 9:52am furosemide 20 mg oral tablet (6 sources) Loop Diuretic Start: 12-31-2024 End: 03-25-2025 take 1 tablet by mouth once daily as needed for edema Furosemide (Lasix) 20 mg tablet Active 20 mg PO DAILY as needed for edema 30 March 25, 2025 9:50am metoprolol tartrate 25 mg oral tablet (4 sources) beta-Adrenergic Shadi Start: 03-18-2025 End: 03-21-2025 take 1 tablet by mouth twice daily Metoprolol Tartrate 25 mg tablet Active 25 mg PO TWICE A DAY 180 March 21, 2025 8:16am pantoprazole 40 mg delayed release oral tablet (10 sources) Proton Pump Inhibitor Start: 12-30-2024 take 1 tablet by mouth once daily Pantoprazole (Protonix) 40 mg tablet,delayed release (DR/EC) Active 40 mg PO DAILY December 30, 2024 1:00am Start: 11-19-2023 End: 12-30-2024 take 1 tablet by mouth twice daily Pantoprazole (Protonix) 40 mg tablet,delayed release (DR/EC) Discontinued 40 mg PO TWICE A DAY 60 30 0 November 19, 2023 1:00am December 30, 2024 10:35pm potassium chloride 10 meq extended release oral tablet (6 sources) Start: 12-31-2024 End: 03-25-2025 take 1 tablet by mouth once daily as needed Potassium Chloride 10 mEq tablet extended release Active 10 meq PO DAILY as needed for with the lasix 30 March 25, 2025 9:51am Sennosides (2 sources) Start: 01-25-2020 take 2 tablets by mouth once daily Sennosides Active 2 TABLET PO DAILY January 25, 2020 12:00am Sennosides (Senokot) 8.6 mg tablet (4 sources) Start: 12-31-2024 take 1 tablet by mouth once daily Sennosides (Senokot) 8.6 mg tablet Active 8.6 mg PO DAILY December 31, 2024 1:00am sennosides, half-way 8.6 mg oral tablet (5 sources) Start: 01-25-2020 take 2 tablets by mouth once daily Sennosides Active 2 TABLET PO DAILY January 25, 2020 1:00am simvastatin 10 mg oral tablet (11 sources) HMG-CoA Reductase Inhibitor Start: 06-24-2016 take 1 tablet by mouth at bedtime Simvastatin 10 MG tablet Active 10 mg PO AT BEDTIME June 24, 2016 12:00am Completed/Discontinued Medications Medication Drug Class(es) Dates Sig (Normalized) Sig (Original) amLODIPine 10 mg oral tablet (11 sources) Dihydropyridine Calcium Channel Shadi Start: 06-24-2016 End: 12-31-2024 take 1 tablet by mouth once daily Amlodipine 10 MG tablet Discontinued 10 mg PO DAILY June 24, 2016 12:00am December 31, 2024 6:20pm aspirin 81 mg delayed release oral tablet (15 sources) Platelet Aggregation Inhibitor, Nonsteroidal Anti-inflammatory Drug Start: 01-13-2025 End: 02-23-2025 take 1 tablet by mouth once daily Aspirin (Adult Aspirin Regimen) 81 mg tablet,delayed release (DR/EC) Discontinued 81 mg PO daily January 13, 2025 1:00am February 23, 2025 1:03pm Start: 06-24-2016 End: 12-31-2024 take 1 tablet by mouth once daily Aspirin 81 MG tablet,chewable Discontinued 81 mg PO DAILY June 24, 2016 12:00am December 31, 2024 6:20pm bisoprolol fumarate 2.5 mg / hydroCHLOROthiazide 6.25 mg oral tablet (11 sources) Thiazide Diuretic, beta-Adrenergic Shadi Start: 01-25-2020 End: 12-31-2024 Bisoprolol-Hydrochlorothiazi de 1 EACH tablet Discontinued 1 {tbl} PO DAILY January 25, 2020 1:00am December 31, 2024 6:20pm heart Start: 01-25-2020 take 1 tablet by kenneth th once daily Bisoprolol-Hydrochlorothiazide Active 1 TABLET PO DAILY January 25, 2020 12:00am cephalexin 500 mg oral capsule (10 sources) Cephalosporin Antibacterial Start: 07-29-2022 End: 08-08-2022 take 1 capsule by mouth every twelve hours Cephalexin 500 mg capsule Discontinued 500 mg PO Q12H 20 10 0 July 29, 2022 12:00am August 07, 2022 12:00am August 08, 2022 12:03am imiquimod 50 mg/ml topical cream (11 sources) Start: 06-12-2021 End: 07-24-2021 Imiquimod (Aldara) 5 % cream in packet Discontinued 1 NMA TOPICAL 5 times per week 30 42 0 June 12, 2021 12:00am July 23, 2021 12:00am July 24, 2021 12:01am Apply at night Friday-Friday, wipe off in the morning. Use for 6 weeks. naproxen sodium 220 mg oral tablet (11 sources) Nonsteroidal Anti-inflammatory Drug Start: 01-25-2020 End: 12-30-2024 take 1 tablet by mouth twice daily Naproxen Sodium 220 MG tablet Discontinued 220 mg PO TWICE A DAY January 25, 2020 1:00am December 30, 2024 10:35pm pain omeprazole 40 mg delayed release oral capsule (11 sources) Proton Pump Inhibitor Start: 01-25-2020 End: 12-30-2024 take 1 capsule by mouth once daily Omeprazole 40 MG capsule,delayed release(DR/EC) Discontinued 40 mg PO DAILY 30 0 January 25, 2020 1:00am December 30, 2024 10:35pm phenazopyridine hydrochloride 100 mg oral tablet (10 sources) Start: 07-29-2022 End: 11-19-2023 take 1 tablet by mouth three times daily at mealtime for pain Phenazopyridine (Pyridium) 100 mg tablet Discontinued 100 mg PO THREE TIMES A DAY as needed for pain 7 0 July 29, 2022 12:00am November 19, 2023 6:25pm administer with a full glass of water after each meal Sennosides 1 TABLET tablet (4 sources) Start: 01-25-2020 End: 12-30-2024 Sennosides 1 TABLET tablet Discontinued 2 {tbl} PO DAILY January 25, 2020 1:00am December 30, 2024 10:34pm constipation Start: 01-25-2020 End: 12-30-2024 Sennosides 1 TABLET tablet D iscontinued 2 {tbl} PO DAILY January 25, 2020 1:00am December 30, 2024 10:34pm Problems Problem Classification Problem Date Documented Da te Episodic/Chronic Acute posthemorrhagic anemia (6 sources) Acute posthemorrhagic anemia; Translations: [Acute posthemorrhagic anemia] 11-19-2023 Episodic Cardiac dysrhythmias (17 sources) Atrial fibrillation with rapid ventricular response; Translations: [Unspecified atrial fibrillation] Onset: 5 01-13-2025 Chronic Cardiac dysrhythmias (7 sources) Palpitations; Translations: [Palpitations] Onset: 5 01-13-2025 Episodic Cardiac dysrhythmias (2 sources) Cardiac dysrhythmias Cataract (4 sources) Bilateral cataracts; Translations: [Unspecified cataract] 01-13-2025 Chronic Chronic kidney disease (4 sources) Chronic kidney disease stage 3; Translations: [Stage 3 chronic kidney disease] 01-13-2025 Chronic Coronary atherosclerosis and other heart disease (2 sources) Atherosclerotic heart disease of [place] coronary artery without angina pectoris; Translations: [Atherosclerotic heart disease of [place] coronary artery without angina pectoris] Onset: 5 Chronic Disorders of lipid metabolism (20 sources) Hypercholesterolemia; Translations: [Pure hypercholesterolemia, unspecified] Onset: 5 01-25-2020 Chronic Esophageal disorders (11 sources) Gastroesophageal reflux disease; Translations: [Gastro-esophageal reflux disease without esophagitis] 01-26-2020 Chronic Essential hypertension (18 sources) Hypertensive disorder; Translations: [Essential (primary) hypertension] Onset: 5 01-25-2020 Chronic Gastrointestinal hemorrhage (6 sources) Acute upper gastrointestinal hemorrhage; Translations: [Gastrointestinal hemorrhage, unspecified] 11-19-2023 Episodic Heart valve disorders (5 sources) Heart murmur; Translations: [Cardiac murmur, unspecified] Onset: 5 01-13-2025 Episodic Hypertension with complications and secondary hypertension (1 source) Hypertensive heart disease with heart failure; Translations: [Hypertensive heart disease with heart failure] Onset: 5 Chronic Neoplasms of unspecified nature or uncertain behavior (20 sources) Neoplasm of skin of cheek; Translations: [Neoplasm of unspecified behavior of bone, soft tissue, and skin] 08-09-2021 Episodic Comment on above: 1.2 cm lesion of lef t lower cheek by mandibular angle 1 cm lesion right lo wer cheek by mandibular angle Nonspecific chest pain (11 sources) Finding of region of thorax; Translations: [Other chest pain] 01-26-2020 Episodic Nutritional deficiencies (4 sources) Vitamin D deficiency; Translations: [Vitamin D deficiency, unspecified] 01-13-2025 Chronic Other aftercare (3 sources) Drug therapy finding; Translations: [group home (current) use of anticoagulants] 03-17-2025 Episodic Other circulatory disease (2 sources) H/O: atrial fibrillation; Translations: [Personal history of other diseases of the circulatory system] 03-26-2025 Episodic Other circulatory disease (1 source) Personal history of other diseases of the circulatory system; Translations: [Personal history of other diseases of the circulatory system] Onset: Episodic Other nutritional; endocrine; and metabolic disorders (4 sources) Obesity; Translations: [Obesity, unspecified] 01-13-2025 Chronic Other skin disorders (11 sources) Actinic keratosis; Translations: [Actinic keratosis] 08-09-2021 Episodic Comment on above: 1.5 cm actinic lesio n dorsal aspect left mid forearm Unclassified (3 sources) call to arrange follow up Urinary tract infections (12 sources) Cystitis; Translations: [Cystitis, unspecified without hematuria] Episodic Results Test Name Value Interpretation Reference Range Facility Absolute lymphocyte countOrd ered By: ED PROVIDER on 05-30-2025 Lymphocytes Auto (Unsp spec) [#/Vol] 2.15 10*3/uL 0.83-4.51 [facility] Absolute neutrophil countOrd ered By: ED PROVIDER on 05-30-2025 Neutrophils (Bld) [#/Vol] 4.6 10*3/uL 2.0-7.7 [facility] Anion gap in Serum or Plasma Ordered By: ED PROVIDER on 05-30-2025 Anion gap [Moles/Vol] 13 mmol/L 5-15 [facility] Automated lymphocyte count a s percentage of total leukocytesOrdered By: ED PROVIDER on 05-30-2025 Lymphocytes/100 WBC Auto (Unsp spec) 28.9 % 19-41 [facility] BUN/creatinine ratioOrdered By: ED PROVIDER on 05-30-2025 Urea nitrogen/Creatinine [Mass ratio] 14.2 mg/mg 10-20 [facility] Basophil percentageOrdered B y: ED PROVIDER on 05-30-2025 Basophils/100 WBC (Bld) 0.7 % 0-1 [facility] Carbon dioxide, total [Moles /volume] in Central venous bloodOrdered By: ED PROVIDER on 05-30-2025 CO2 [Moles/Vol] 23.0 mmol/L 21.0-32.0 [facility] Chloride assayOrdered By: ED PROVIDER on 05-30-2025 Chloride [Moles/Vol] 105 mmol/L 98-108 [facility] Eosinophil percentageOrdered By: ED PROVIDER on 05-30-2025 Eosinophils/100 WBC (Bld) 0.7 % 0-5 [facility] Erythrocyte distribution wid th ratioOrdered By: ED PROVIDER on 05-30-2025 Erythrocyte distribution width (RBC) [Ratio] 14.6 % 11.6-14.6 [facility] Erythrocyte distribution wid th standard deviationOrdered By: ED PROVIDER on 05-30-2025 Erythrocyte distribution width (RBC) [Ratio] 47.8 fl High 35.1-43.9 [facility] Glomerular filtration rate ( GFR) estimation/1.73 sq m using serum, plasma, or whole bOrdered By: ED PROVIDER on 05-30-2025 GFR/1.73 sq M.predicted among non-blacks MDRD (S/P/Bld) [Vol rate/Area] 71 mL/min/{1.73_m2} >60 [facility] Comment on above: mL/min/1.73m2 CKD-EP I Creatinine Equation (2020) Hematocrit Auto (Bld) [Volum e fraction]Ordered By: ED PROVIDER on 05-30-2025 Hematocrit (Bld) [Volume fraction] 45.9 % 37-47 [facility] Hemoglobin measurementOrdere d By: ED PROVIDER on 05-30-2025 Hemoglobin (Bld) [Mass/Vol] 15.4 g/dL High 12.0-15.0 [facility] Immature granulocytes/100 WB C Auto (Bld)Ordered By: ED PROVIDER on 05-30-2025 Immature granulocytes/100 WBC (Bld) 0.400 % 0.0-0.9 [facility] Comment on above: IG% - Immature Granu locytes (promyelocytes, myelocytes and metamyelocytes) > 1% indicates that a LEFT SHIFT is Present. International normalized rat io (INR) calculationOrdered By: ED PROVIDER on 05-30-2025 INR Coag (Bld) [Relative time] 1.2 {INR} [facility] MCV (mean corpuscular volume ) determinationOrdered By: ED PROVIDER on 05-30-2025 MCV (RBC) [Entitic vol] 90.0 fL 81-99 [facility] Mean corpuscular hemoglobin (MCH) determinationOrdered By: ED PROVIDER on 05-30-2025 MCH (RBC) [Entitic mass] 30.2 pg 27.0-32.0 [facility] Mean corpuscular hemoglobin concentration (MCHC) determinationOrdered By: ED PROVIDER on 05-30-2025 MCHC (RBC) [Mass/Vol] 33.6 g/dL 32-36 [facility] Mean platelet volume determi nationOrdered By: ED PROVIDER on 05-30-2025 Platelet mean volume (Bld) [Entitic vol] 10.2 fL 6.2-12.0 [facility] Monocyte percentageOrdered B y: ED PROVIDER on 05-30-2025 Monocytes/100 WBC (Bld) 7.0 % 0-10 [facility] Natriuretic peptide.B prohor anabel N-Terminal [Mass/volume] in Serum or PlasmaOrdered By: Dwight Patricia on 05-30-2025 Natriuretic peptide.B prohormone N-Terminal [Mass/Vol] 784 pg/mL <1800 [facility] Comment on above: Heart Failure Unlike ly: < 300 pg/mLHeart Failure Likely< 50 Years: > 450 pg/mL50-75 Years: > 900 pg/mL>75 Years: > 1800 pg/mL Neutrophil percentageOrdered By: ED PROVIDER on 05-30-2025 Neutrophils/100 WBC (Bld) 62.3 % 47-70 [facility] Nucleated red blood cell per centageOrdered By: ED PROVIDER on 05-30-2025 Nucleated RBC/100 WBC (Bld) [Ratio] 0 % 0-5 [facility] Platelet countOrdered By: ED PROVIDER on 05-30-2025 Platelets (Bld) [#/Vol] 238 10*3/uL 150-450 [facility] Potassium measurement (mass/ volume)Ordered By: ED PROVIDER on 05-30-2025 Potassium (Unsp spec) [Mass/Vol] 4.1 mmol/L 3.3-5.1 [facility] Prothrombin timeOrdered By: ED PROVIDER on 05-30-2025 PT Coag (PPP) [Time] 15.7 s High 11.7-14.9 [facility] RBC Auto (Bld) [#/Vol]Ordere d By: ED PROVIDER on 05-30-2025 RBC (Bld) [#/Vol] 5.10 10*6/uL 4.2-5.4 [facility] Serum creatinine measurement (mass/volume)Ordered By: ED PROVIDER on 05-30-2025 Creatinine [Mass/Vol] 0.82 mg/dL 0.70-1.20 [facility] Serum glucose measurement (m ass/volume)Ordered By: ED PROVIDER on 05-30-2025 Glucose [Mass/Vol] 114 mg/dL High 70-99 [facility] Serum or plasma calcium balaji urement (mass/volume)Ordered By: ED PROVIDER on 05-30-2025 Calcium [Mass/Vol] 9.6 mg/dL 7.6-11.0 [facility] Serum or plasma urea nitroge n measurement (mass/volume)Ordered By: ED PROVIDER on 05-30-2025 Urea nitrogen [Mass/Vol] 12 mg/dL 4-19 [facility] Sodium levelOrdered By: ED Galilea NAPOLES on 05-30-2025 Sodium [Moles/Vol] 142 mmol/L 133-145 [facility] Troponin T.cardiac [Mass/vol ume] in Serum or Plasma by High sensitivity methodOrdered By: ED PROVIDER on 05-30-2025 Troponin T.cardiac High sensitivity method [Mass/Vol] 22 ng/L High <14 [facility] Comment on above: Delta: 17 on White blood cell (WBC) count Ordered By: ED PROVIDER on 05-30-2025 WBC (Bld) [#/Vol] 7.4 10*3/uL 4.4-11.0 [facility] Absolute lymphocyte countOrd ered By: Dwight Patricia on 05-05-2025 Lymphocytes Auto (Unsp spec) [#/Vol] 2.65 10*3/uL 0.83-4.51 [facility] Absolute neutrophil countOrd ered By: Dwight Patricia on 05-05-2025 Neutrophils (Bld) [#/Vol] 3.1 10*3/uL 2.0-7.7 [facility] Activated partial thrombopla stin time (aPTT) in platelet poor plasma by coagulation aOrdered By: Dwight Patricia on 05-05-2025 aPTT Coag (PPP) [Time] 27.0 s 24.1-36.2 [facility] Anion gap in Serum or Plasma Ordered By: Dwight Patricia on 05-05-2025 Anion gap [Moles/Vol] 15 mmol/L 04-07 [facility] Automated lymphocyte count a s percentage of total leukocytesOrdered By: Dwight Patricia on 05-05-2025 Lymphocytes/100 WBC Auto (Unsp spec) 40.8 % [facility] BUN/creatinine ratioOrdered By: Dwight Patricia on 05-05-2025 Urea nitrogen/Creatinine [Mass ratio] 15.3 mg/mg - [facility] Basic Metabolic Profile (BMP )on 05-05-2025 BUN/CRE 15.3 RATIO Normal - [facility] Comment on above: Performed By: #### L [id number], [id number], [id number] #### [facility] [address] [place], [address] Calcium [Mass/Vol] 9.6 mg/dL Normal 7.6-11.0 [facility] Comment on above: Performed By: #### L [id number], [id number], [id number] #### [facility] [address] [place], [address] Chloride [Moles/Vol] 101 mmol/L Normal 98-108 [facility] Comment on above: Performed By: #### L [id number], [id number], [id number] #### [facility] [address] [place], [address] CO2 [Moles/Vol] 23.3 mmol/L Normal 21.0-32.0 [facility] Comment on above: Performed By: #### L [id number], [id number], [id number] #### [facility] [address] [place], [address] Creatinine [Mass/Vol] 0.89 mg/dL Normal 0.70-1.20 [facility] Comment on above: Performed By: #### L [id number], [id number], [id number] #### [facility] [address] [place], [address] ECRCL 45.85 ml/min Low 50-250 [facility] Comment on above: Performed By: #### L [id number], [id number], [id number] #### [facility] [address] [place], [address] GAP 15 Normal 5-15 [facility] Comment on above: Performed By: #### L [id number], [id number], [id number] #### [facility] [address] [place], [address] GFR/1.73 sq M.predicted among non-blacks MDRD (S/P/Bld) [Vol rate/Area] 64 mL/min/{1.73_m2} Normal >60 [facility] Comment on above: Result Comment: mL/m in/1.73m2 CKD-EPI Creatinine Equation (2020) Performed By: #### L [id number], [id number], [id number] #### [facility] [address] [place], [address] Glucose [Mass/Vol] 156 mg/dL High 70-99 [facility] Comment on above: Performed By: #### L [id number], [id number], [id number] #### [facility] [address] [place], [address] Potassium [Moles/Vol] 3.7 mmol/L Normal 3.3-5.1 [facility] Comment on above: Performed By: #### L [id number], [id number], [id number] #### [facility] [address] [place], [address] Sodium [Moles/Vol] 139 mmol/L Normal 133-145 [facility] Comment on above: Performed By: #### L [id number], [id number], [id number] #### [facility] [address] [place], [address] Urea nitrogen [Mass/Vol] 14 mg/dL Normal 4-19 [facility] Comment on above: Performed By: #### L [id number], [id number], [id number] #### [facility] [address] [place], [address] Basophil percentageOrdered B y: Dwight Patricia on 05-05-2025 Basophils/100 WBC (Bld) 0.6 % 0-1 [facility] CBC W/Diff, Automatedon 04-24 Absolute Lymph 2.65 X10 3/uL Normal 0.83-4.51 [facility] Comment on above: Performed By: #### L [id number], L100.0100, [id number] #### [facility] [address] [place], [address] Absolute Neut 3.1 X10 3/uL Normal 2.0-7.7 [facility] Comment on above: Performed By: #### L [id number], L100.0100, [id number] #### [facility] [address] [place], [address] Basophils/100 WBC (Bld) 0.6 % Normal 0-1 [facility] Comment on above: Performed By: #### L [id number], [id number], [id number] #### [facility] [address] [place], [address] Eosinophils/100 WBC (Bld) 2.0 % Normal 0-5 [facility] Comment on above: Performed By: #### L [id number], L100.0100, L500.2500 #### [facility] [address] [place], [address] Erythrocyte distribution width (RBC) [Ratio] 14.2 % Normal 11.6-14.6 [facility] Comment on above: Performed By: #### L 501.5425, L100.0100, L500.2500 #### [facility] [address] [place], [address] Hematocrit (Bld) [Volume fraction] 45.2 % Normal 37-47 [facility] Comment on above: Performed By: #### L 501.5425, L100.0100, L500.2500 #### [facility] [address] [place], [address] Hemoglobin (Bld) [Mass/Vol] 15.2 g/dL High 12.0-15.0 [facility] Comment on above: Performed By: #### L 501.5425, L100.0100, L500.2500 #### [facility] [address] [place], [address] IG% 0.500 Normal 0.0-0.9 [facility] Comment on above: Result Comment: IG% - Immature Granulocytes (promyelocytes, myelocytes and metamyelocytes) > 1% indicates that a LEFT SHIFT is Present. Performed By: #### L 501.5425, L100.0100, L500.2500 #### [facility] [address] [place], [address] Lymphocytes/100 WBC (Bld) 40.8 % Normal 19-41 [facility] Comment on above: Performed By: #### L 501.5425, L100.0100, L500.2500 #### [facility] [address] [place], [address] MCH (RBC) [Entitic mass] 30.0 pg Normal 27.0-32.0 [facility] Comment on above: Performed By: #### L 501.5425, L100.0100, L500.2500 #### [facility] [address] [place], [address] MCHC (RBC) [Mass/Vol] 33.6 g/dL Normal 32-36 [facility] Comment on above: Performed By: #### L 501.5425, L100.0100, L500.2500 #### [facility] [address] [place], [address] MCV (RBC) [Entitic vol] 89.2 fL Normal 81-99 [facility] Comment on above: Performed By: #### L 501.5425, L100.0100, L500.2500 #### [facility] [address] [place], [address] Monocytes/100 WBC (Bld) 8.5 % Normal 0-10 [facility] Comment on above: Performed By: #### L 501.5425, L100.0100, L500.2500 #### [facility] [address] [place], [address] Neutrophils/100 WBC (Bld) 47.6 % Normal 47-70 [facility] Comment on above: Performed By: #### L 501.5425, L100.0100, L500.2500 #### [facility] [address] [place], [address] Nucleated RBC (Bld) [#/Vol] 0 10*3/uL Normal 0-5 [facility] Comment on above: Performed By: #### L 501.5425, L100.0100, L500.2500 #### [facility] [address] [place], [address] Platelet mean volume (Bld) [Entitic vol] 10.5 fL Normal 6.2-12.0 [facility] Comment on above: Performed By: #### L 501.5425, L100.0100, L500.2500 #### [facility] [address] [place], [address] Platelets (Bld) [#/Vol] 220 10*3/uL Normal 150-450 [facility] Comment on above: Performed By: #### L 501.5425, L100.0100, L500.2500 #### [facility] [address] [place], [address] RBC (Bld) [#/Vol] 5.07 10*6/uL Normal 4.2-5.4 [facility] Comment on above: Performed By: #### L 501.5425, L100.0100, L500.2500 #### [facility] [address] [place], [address] RDW SD 46.2 fl High 35.1-43.9 [facility] Comment on above: Performed By: #### L 501.5425, L100.0100, L500.2500 #### [facility] [address] [place], [address] WBC (Bld) [#/Vol] 6.5 10*3/uL Normal 4.4-11.0 [facility] Comment on above: Performed By: #### L 501.5425, L100.0100, L500.2500 #### [facility] [address] [place], [address] Carbon dioxide, total [Moles /volume] in Central venous bloodOrdered By: Dwight Patricia on 05-05-2025 CO2 [Moles/Vol] 23.3 mmol/L 21.0-32.0 [facility] Chest PA and Lateralon 05-05 Chest PA and Lateral [facility] [address] [place] [address] Chest PA and Lateral MR#: [id number] Acct: [id number] Name: AL LEWIS ANN Rep #: [id number] : 1940 F 84 From: Pamela Valdez nd, MD PCP: Dr. Jacquie Coleman MD Status: REG ER Study: Chest PA and Lateral Date of Exam: 05/05/25 Exam# [id number] Ordering Dr: Dwight Patricia DO PROCEDURE: CHEST PA AND LATERAL 05/05/2025 REASON FOR EXAM: CHEST PAIN TECHNIQUE: Frontal and lateral views of the chest. COMPARISON: Chest radiograph 03/17/2025. FINDINGS: Hardware: None. Heart: Stable mild cardiomegaly with pulmonary vascular congestion. Mediastinum: The mediastinal contour is stable. Lungs: No focal consolidation, pleural effusion or pneumothorax. Bones: Degenerative changes are identified within the thoracic spine. RAD/Chest PA and Lateral IMPRESSION: Stable mild cardiomegaly. Reading Location: [facility] CC: Dr. Dwight Patricia DO; Dr. Jacquie Coleman MD Cartridge Feeder: Signed Normal [facility] Chloride assayOrdered By: Avery Patricia on 05-05-2025 Chloride [Moles/Vol] 101 mmol/L 98-108 [facility] Emergency Department Summary on 05-05-2025 Emergency Department Summary [facility] Medical Records Department [address] [place] [address] Emergency Department Summary 05/05/25 MR#: [id number] Acct: [id number] Name: AL LEWIS ANN Rep #: [id number] : 1940 84 From: Dwight Patricia DO PCP: Dr. Jacquie Coleman MD Status:DEP ER Location: ED HPI History of Present Illness Chief Complaint: Palpitations Narrative Narrative: Chief complaint and HPI: Palpitations. 84-year-old female with past medical history of proximal atrial fib on Eliquis, CKD, HLD, HTN presents for evaluation of palpitations. History taken by patient as well as cardiology note on 03/25. Patient presented for same complaints in February in which I saw her. At that time she was in A-fib with RVR. Patient states that since seeing me in the emergency department she followed up in the cardiology office. There was changes in her medication. She was originally on diltiazem 125 mg twice daily. She is currently now on diltiazem 120 mg daily and metoprolol 25 mg twice daily. Patient states her palpitations started this evening. She states that she was due to take her diltiazem and her metoprolol so she took these first. The palpitations did not improve which is why she presents. She denies any chest pain, shortness of breath, nausea, vomiting. Review of systems: See HPI Medications: As listed on the chart Allergies: As listed on the chart PFSH: Per chart Vital signs: As listed on the chart. Reviewed. Physical exam: Gen: A O x3, NAD Head: Normocephalic, atraumatic Eyes: No sclera icterus, conjunctiva clear ENT: Moist mucous membranes Neck: Trachea midline, No JVD CV: Tachycardic, irregularly irregular rhythm, no murmurs, no peripheral edema Resp: Lungs CTA BL, no w/r/c GI: Abd soft, non-distended, non-tender, no r/r/g Musc: Full ROM, no deformity Skin: Warm, dry Neuro: Alert, oriented, grossly intact, sensation intact Psych: Cooperative, appropriate mood and affect [facility] Medical History Atrial fibrillation with RVR Cardiac murmur Cataracts, bilateral CKD (chronic kidney disease), stage III GERD (gastroesophageal reflux disease) HLD (hyperlipidemia) Hypertension Obesity Palpitations Vitamin D deficiency Home Medications ???Medication ???Instructions ???Recorded ???Last Taken ???Type simvastatin 10 mg tablet 10 mg PO QHS 06/24/16 01/24/20 His tory pantoprazole 40 mg tablet,delayed 40 mg PO DAILY 12/30/24 Unknown H istory release (Protonix) apixaban 5 mg tablet (Eliquis) 5 mg PO BID #60 tabs 12/31/24 Unkn own Rx sennosides 8.6 mg tablet (Senokot) 8.6 mg PO DAILY 12/31/24 Unknown History metoprolol tartrate 25 mg tablet 25 mg PO BID #180 tabs 03/21/25 Un known Rx diltiazem HCl 120 mg 120 mg PO QDAY #90 caps 03/25/25 U nknown Rx capsule,extended release 24 hr furosemide 20 mg tablet (Lasix) 20 mg PO DAILY PRN edema #30 tabs 03/25/25 Unknown Rx potassium chloride 10 mEq 10 meq PO DAILY PRN with the lasix 03/25/25 Unknown Rx tablet,extended release #30 tabs Allergy/AdvReac Type Severity Reaction Status Date / Time morphine Allergy Anaphylaxis Verified 05/05/25 19:15 niacin Allergy Rash Verified 05/05/25 19:15 procaine HCl (From Novocain) Allergy Anaphylaxis Verified 05/05/25 19:15 tetracycline Allergy Rash Verified 05/05/25 19:15 omeprazole AdvReac Severe Diarrhea Verified 05/05/25 19:15 Family History Father Cancer Hypertension Respiratory disease Mother Diabetes Epilepsy Heart disease Brother CVA (cerebral vascular accident) Surgical History History of appendectomy History of cataract surgery History of total hysterectomy Social History household members: none Smoking Status: Never smoker alcohol intake: never substance use type: does not use additional social history: Does Take Aspirin Does Not Take Ibuprofen EXAM Physical Exam Const Vital Signs: 05/05/25 19:15 05/05/25 19:25 05/05/25 20:10 Temperature 98.1 F Temperature Source Temporal Pulse Rate 159 H 150 H Pulse Rate [1 (Initial Baseline)] Pulse Rate [2] Pulse Rate [3] Pulse Rate [4] Pulse Rate [5] Respiratory Rate 20 H 16 Respiratory Rate [1 (Initial Baseline)] Respiratory Rate [2] Respiratory Rate [3] Respiratory Rate [4] Respiratory Rate [5] Respiratory Effort Normal Non-Labored Blood Pressure 163/82 H 129/77 H Blood Pressure [1 (Initial Baseline)] Blood Pressure [2] Blood Pressure [3] Blood Pressure [4] Blood Pressure [5] Blood Pressure Mean 109 94 Baseline BP Pulse Ox 95 95 Oxygen Delivery Method Room Air (more content not included)... Normal [facility] Eosinophil percentageOrdered By: Dwighttheodora Patricia on 05-05-2025 Eosinophils/100 WBC (Bld) 2.0 % 0-5 [facility] Erythrocyte distribution wid th ratioOrdered By: [facility] InstituteGrecia on 05-05-2025 Erythrocyte distribution width (RBC) [Ratio] 14.2 % 11.6-14.6 [facility] Erythrocyte distribution wid th standard deviationOrdered By: [facility] CenterValente Davey on 05-05-2025 Erythrocyte distribution width (RBC) [Ratio] 46.2 fl High 35.1-43.9 [facility] Glomerular filtration rate ( GFR) estimation/1.73 sq m using serum, plasma, or whole bOrdered By: [facility] InstituteG[facility] on 05-05-2025 GFR/1.73 sq M.predicted among non-blacks MDRD (S/P/Bld) [Vol rate/Area] 64 mL/min/{1.73_m2} >60 [facility] Comment on above: mL/min/1.73m2 CKD-EP I Creatinine Equation (2020) Hematocrit Auto (Bld) [Volum e fraction]Ordered By: [facility] Institute[facility] on 05-05-2025 Hematocrit (Bld) [Volume fraction] 45.2 % 37-47 [facility] Hemoglobin measurementOrdere d By: Dwight Patricia on 05-05-2025 Hemoglobin (Bld) [Mass/Vol] 15.2 g/dL High 12.0-15.0 [facility] Immature granulocytes/100 WB C Auto (Bld)Ordered By: [facility] Institute[facility] on 05-05-2025 Immature granulocytes/100 WBC (Bld) 0.500 % 0.0-0.9 [facility] Comment on above: IG% - Immature Granu locytes (promyelocytes, myelocytes and metamyelocytes) > 1% indicates that a LEFT SHIFT is Present. International normalized rat io (INR) calculationOrdered By: Dwight Patricia on 05-05-2025 INR Coag (Bld) [Relative time] 1.0 {INR} [facility] L499.0042on 05-05-2025 Trop T High Sen Normal <=14 [facility] Comment on above: Result Comment: PT D ISCHARGED Performed By: #### L 501.5425, L100.0100, L500.2500 #### [facility] [address] [place], [address] L501.4021on 05-05-2025 Trop T High Sen 17 ng/L High <=14 [facility] Comment on above: Performed By: #### L 501.5425, L100.0100, L500.2500 #### [facility] [address] [place], [address] L503.7505on 05-05-2025 Natriuretic peptide B (Bld) [Mass/Vol] 509 pg/mL Normal <=1800 [facility] Comment on above: Result Comment: Hear t Failure Unlikely: < 300 pg/mL Heart Failure Likely < 50 Years: > 450 pg/mL 50-75 Years: > 900 pg/mL >75 Years: > 1800 pg/mL Performed By: #### L 501.5425, L100.0100, L500.2500 #### [facility] [address] [place], [address] MCV (mean corpuscular volume ) determinationOrdered By: Dwight Patricia on 05-05-2025 MCV (RBC) [Entitic vol] 89.2 fL 81-99 [facility] Magnesiumon 05-05-2025 Magnesium [Mass/Vol] 2.1 mg/dL Normal 1.5-2.2 [facility] Comment on above: Performed By: #### L 503.7505, L501.5200, L500.2500 #### [facility] [address] [place], [address] Magnesium measurement (mass/ volume)Ordered By: Dwight Patricia on 05-05-2025 Magnesium (Unsp spec) [Mass/Vol] 2.1 mg/dL 1.5-2.2 [facility] Mean corpuscular hemoglobin (MCH) determinationOrdered By: Dwight Patricia on 05-05-2025 MCH (RBC) [Entitic mass] 30.0 pg 27.0-32.0 [facility] Mean corpuscular hemoglobin concentration (MCHC) determinationOrdered By: Dwight Patricia on 05-05-2025 MCHC (RBC) [Mass/Vol] 33.6 g/dL 32-36 [facility] Mean platelet volume determi nationOrdered By: Dwight Patricia on 05-05-2025 Platelet mean volume (Bld) [Entitic vol] 10.5 fL 6.2-12.0 [facility] Monocyte percentageOrdered B y: Dwight Patricia on 05-05-2025 Monocytes/100 WBC (Bld) 8.5 % 0-10 [facility] Natriuretic peptide.B prohor anabel N-Terminal [Mass/volume] in Serum or PlasmaOrdered By: Dwight Patricia on 05-05-2025 Natriuretic peptide.B prohormone N-Terminal [Mass/Vol] 509 pg/mL <1800 [facility] Comment on above: Heart Failure Unlike ly: < 300 pg/mLHeart Failure Likely< 50 Years: > 450 pg/mL50-75 Years: > 900 pg/mL>75 Years: > 1800 pg/mL Neutrophil percentageOrdered By: Dwight Harshad on 05-05-2025 Neutrophils/100 WBC (Bld) 47.6 % 47-70 [facility] Nucleated red blood cell per centageOrdered By: Dwight Harshad on 05-05-2025 Nucleated RBC/100 WBC (Bld) [Ratio] 0 % 0-5 [facility] Partial Thromboplast Timeon 05-05-2025 aPTT Coag (Bld) [Time] 27.0 s Normal 24.1-36.2 [facility] Comment on above: Performed By: #### L 501.5425, L100.0100, L500.2500 #### [facility] [address] [place], [address] Platelet countOrdered By: Avery Patricia on 05-05-2025 Platelets (Bld) [#/Vol] 220 10*3/uL 150-450 [facility] Potassium measurement (mass/ volume)Ordered By: Dwight Patricia on 05-05-2025 Potassium (Unsp spec) [Mass/Vol] 3.7 mmol/L 3.3-5.1 [facility] Prothrombin Time w/INRon INR Coag (PPP) [Relative time] 1.0 {INR} Normal [facility] Comment on above: Performed By: #### L 501.5425, L100.0100, L500.2500 #### [facility] [address] [place], [address] PT Coag (PPP) [Time] 13.5 s Normal 11.7-14.9 [facility] Comment on above: Performed By: #### L 501.5425, L100.0100, L500.2500 #### [facility] [address] [place], [address] Prothrombin timeOrdered By: Dwight Patricia on 05-05-2025 PT Coag (PPP) [Time] 13.5 s 11.7-14.9 [facility] RBC Auto (Bld) [#/Vol]Ordere d By: Dwight Patricia on 05-05-2025 RBC (Bld) [#/Vol] 5.07 10*6/uL 4.2-5.4 [facility] Serum creatinine measurement (mass/volume)Ordered By: Diwght Patricia on 05-05-2025 Creatinine [Mass/Vol] 0.89 mg/dL 0.70-1.20 [facility] Serum glucose measurement (m ass/volume)Ordered By: Dwight Patricia on 05-05-2025 Glucose [Mass/Vol] 156 mg/dL High 70-99 [facility] Serum or plasma calcium balaji urement (mass/volume)Ordered By: Dwight Davey on 05-05-2025 Calcium [Mass/Vol] 9.6 mg/dL 7.6-11.0 [facility] Serum or plasma urea nitroge n measurement (mass/volume)Ordered By: Dwight Patricia on 05-05-2025 Urea nitrogen [Mass/Vol] 14 mg/dL 4-19 [facility] Sodium levelOrdered By: Terry Patricia on 05-05-2025 Sodium [Moles/Vol] 139 mmol/L 133-145 [facility] Troponin T.cardiac [Mass/vol ume] in Serum or Plasma by High sensitivity methodOrdered By: Dwight Patricia on 05-05-2025 Troponin T.cardiac High sensitivity method [Mass/Vol] 17 ng/L High <14 [facility] Comment on above: Delta: 25 on 5-2330 White blood cell (WBC) count Ordered By: Dwight Patricia on 05-05-2025 WBC (Bld) [#/Vol] 6.5 10*3/uL 4.4-11.0 [facility] Cardiology Visit Reporton Cardiology Visit Report [facility] [place] [address] OFFICE VISIT Date of Service: 03/25/25 MR#: [id number] Acct: [id number] Name: AL LEWIS Rep #: [id number] : 1940 Provider: ART Keenan Age/Sex: 84/F Location: [facility] Status: Signed HPI HPI History of Present Illness Details: Pleasant 84-year-old lady with a history of hypertension who presented to the emergency room in 12/2024 with palpitations which have been going on for a few hours. She says that this was preceded by a headache and then she realized that her blood pressure and heart rate were elevated. She went to the emergency room and EKG was done which demonstrated atrial fibrillation with a rapid ventricular response rate of approximately 150 bpm with a leftward axis. She was given intravenous diltiazem and converted back to sinus rhythm with a EKG demonstrating sinus bradycardia. She does have a [id number] score of at least 3 and was started on anticoagulation. Echocardiogram 12/2024 demonstrated an ejection fraction of approximately 60% with no wall motion abnormalities present. Patient had presented to the emergency room on 03/18/2025 with palpitations. She was noted to be in atrial fibrillation with RVR. She was given IV diltiazem. She did not convert to normal rhythm. She then underwent a synchronized cardioversion as she has not missed any doses of her Eliquis. Pt notes that she just does not feel right being on these medications. She just started the metoprolol and feels that her HR is lower. She is not aware of her Afib unless she has a WATSON. Intake Vital Signs 03/17/25 01:40 03/25/25 08:01 Height 5 ft 2 in 5 ft 2 in Weight: 169 lb BMI 30.9 BP 141/77 H Blood Pressure Location Lt brachial Position Sitting Respiration 18 Pulse 58 L Pulse Source NIBP Intake Visit Reasons: S/P [facility] 03/17 Watershed Manager Required: No Accompanied by: Self Is patient in pain?: No Allergies morphine Allergy (Verified 03/17/25 23:21) Anaphylaxis niacin Allergy (Verified 03/17/25 23:21) Rash procaine HCl (From Novocain) Allergy (Verified 03/17/25 23:21) Anaphylaxis tetracycline Allergy (Verified 03/17/25 23:21) Rash omeprazole Adverse Reaction (Severe, Verified 03/17/25 23:21) Diarrhea Medications ???Medication ???Instructions ???Recorded ???Confirmed ???Type simvastatin 10 mg tablet 10 mg PO QHS 06/24/16 03/25/25 His tory pantoprazole 40 mg tablet,delayed 40 mg PO DAILY 12/30/24 03/25/25 History release (Protonix) apixaban 5 mg tablet (Eliquis) 5 mg PO BID #60 tabs 12/31/2401/18 Rx sennosides 8.6 mg tablet (Senokot) 8.6 mg PO DAILY 12/31/24 5 History metoprolol tartrate 25 mg tablet 25 mg PO BID #180 tabs 03/21/25 Rx diltiazem HCl 120 mg 120 mg PO QDAY #90 caps 03/25/25 0 03/25/25 Rx capsule,extended release 24 hr furosemide 20 mg tablet (Lasix) 20 mg PO DAILY PRN edema #30 tabs 03/25/25 03/25/25 Rx potassium chloride 10 mEq 10 meq PO DAILY PRN with the lasix 03/25/25 03/25/25 Rx tablet,extended release #30 tabs Ejection fraction %: 70 Have you fallen in the past year?: No PFSH Medical History Atrial fibrillation with RVR Cardiac murmur Cataracts, bilateral CKD (chronic kidney disease), stage III GERD (gastroesophageal reflux disease) HLD (hyperlipidemia) Hypertension Obesity Palpitations Vitamin D deficiency Surgical History History of appendectomy History of cataract surgery History of total hysterectomy Family History Father Cancer Hypertension Respiratory disease Mother Diabetes Epilepsy Heart disease Brother CVA (cerebral vascular accident) Social History household members: none Smoking Status: Never smoker alcohol intake: never substance use type: does not use additional social history: Does Take Aspirin Does Not Take Ibuprofen ROS Const Const: Positive for headache(s) (new); Negative for fatigue, weakness or weight gain ENT ENT: Positive for headache(s) (new); Negative for dizziness, Nosebleed/epistaxis or balance problems Cardio Chest Pain: No Palpitations: No Edema: None Muscle aches with walking: None Resp Respiratory: Negative for SOB with activity, SOB at rest or SOB orthopnea SOB lying down GI GI: Negative nausea, vomiting or heartburn Musc Musc: Negative for muscle aches/ myalgia, muscle weakness, joint pain or balance problems Neuro Neuro: Positive for headache(s) (new); Negative for dizziness, lightheadedness, near syncope, syncope or weakness Endo Endo: Negative for fatigue (more content not included)... Normal [facility] Basic Metabolic Profile (BMP )on 03-18-2025 BUN/CRE 20.1 RATIO High 10-20 [facility] Comment on above: Performed By: #### L 501.4021, L500.2500, L100.0100 #### [facility] [address] [place], [address] ECRCL 47.80 ml/min Low 50-250 [facility] Comment on above: Performed By: #### L 501.4021, L500.2500, L100.0100 #### [facility] [address] [place], [address] GAP 15 Normal 5-15 [facility] Comment on above: Performed By: #### L 501.4021, L500.2500, L100.0100 #### [facility] [address] [place], [address] Potassium [Moles/Vol] 3.9 mmol/L Normal 3.3-5.1 [facility] Comment on above: Performed By: #### L 501.4021, L500.2500, L100.0100 #### [facility] [address] [place], [address] Emergency Department Summary on 03-18-2025 Emergency Department Summary [facility] Medical Records Department [address] [place] [address] Emergency Department Summary 03/18/25 MR#: [id number] Acct: [id number] Name: AL LEWIS ANN Rep #: [id number] : 1940 84 From: Dwight Patricia DO PCP: Dr. Jacquie Coleman MD Status:REG ER Location: ED HPI History of Present Illness Chief Complaint: Palpitations Narrative Narrative: Chief complaint and HPI: Palpitations. 84-year-old female with past medical history of proximal atrial fibrillation on Eliquis, CKD, HLD, HTN presents for evaluation of palpitations. Patient states that she developed palpitations this evening in which she checked her heart rate at home. She states her heart rate was 115. She states she took an extra dose of her diltiazem this evening due to this and presented to the emergency department. Denies palpitations currently. Patient usually takes 125 mg diltiazem twice daily. She has not missed any doses of her Eliquis. She denies any fever, chills, shortness of breath, chest pain, abdominal, nausea, vomiting. Patient follows with Dr. Pena. On chart review, patient was seen in our emergency department yesterday for atrial fibrillation with RVR. At that time she failed cardioversion via Cardizem and had synchronized cardioversion. On chart review, patient does had a stress test on 03/07/2025 that was negative. Review of systems: See HPI Medications: As listed on the chart Allergies: As listed on the chart PFSH: Per chart Vital signs: As listed on the chart. Reviewed. Physical exam: Gen: A O x3, NAD Head: Normocephalic, atraumatic Eyes: No sclera icterus, conjunctiva clear ENT: Moist mucous membranes Neck: Trachea midline, No JVD CV: RRR, no murmurs, no peripheral edema Resp: Lungs CTA BL, no w/r/c GI: Abd soft, non-distended, non-tender, no r/r/g Musc: Full ROM, no deformity Skin: Warm, dry Neuro: Alert, oriented, grossly intact, sensation intact Psych: Cooperative, appropriate mood and affect PFS PFS Medical History Palpitations Cardiac murmur Vitamin D deficiency Atrial fibrillation with RVR Obesity GERD (gastroesophageal reflux disease) CKD (chronic kidney disease), stage III HLD (hyperlipidemia) Hypertension Cataracts, bilateral Home Medications ???Medication ???Instructions ???Recorded ???Last Taken ???Type simvastatin 10 mg tablet 10 mg PO QHS 06/24/16 01/24/20 His tory pantoprazole 40 mg tablet,delayed 40 mg PO DAILY 12/30/24 Unknown H istory release (Protonix) apixaban 5 mg tablet (Eliquis) 5 mg PO BID #60 tabs 12/31/24 Unkn own Rx diltiazem HCl 120 mg 120 mg PO BID #60 caps 12/31/24 Un known Rx capsule,extended release 24 hr furosemide 20 mg tablet (Lasix) 20 mg PO DAILY #30 tabs 12/31/24 U nknown Rx potassium chloride 10 mEq 10 meq PO DAILY #30 tabs 12/31/24 Unknown Rx tablet,extended release sennosides 8.6 mg tablet (Senokot) 8.6 mg PO DAILY 12/31/24 Unknown History Allergy/AdvReac Type Severity Reaction Status Date / Time morphine Allergy Anaphylaxis Verified 03/17/25 23:21 niacin Allergy Rash Verified 03/17/25 23:21 procaine HCl (From Novocain) Allergy Anaphylaxis Verified 03/17/25 23:21 tetracycline Allergy Rash Verified 03/17/25 23:21 omeprazole AdvReac Severe Diarrhea Verified 03/17/25 23:21 Family History Father Cancer Hypertension Respiratory disease Mother Diabetes Epilepsy Heart disease Brother CVA (cerebral vascular accident) Surgical History History of cataract surgery History of appendectomy History of total hysterectomy Social History household members: none Smoking Status: Never smoker alcohol intake: never substance use type: does not use additional social history: Does Take Aspirin Does Not Take Ibuprofen EXAM Physical Exam Const Vital Signs: 03/17/25 23:21 03/17/25 23:25 03/17/25 23:31 Temperature 96.8 F L Temperature Source Temporal Pulse Rate 94 103 H Respiratory Rate 16 20 H Blood Pressure 174/91 H Blood Pressure Mean 118 Pulse Ox 98 96 Oxygen Delivery Method Room Air Room Air Room Air 03/17/25 23:52 03/18/25 00:25 03/18/25 01:00 Temperature Temperature Source Pulse Rate 83 80 81 Respiratory Rate 20 H 15 16 Blood Pressure 142/89 H 136/60 H 132/73 H Blood Pressure Mean 106 85 92 Pulse Ox 95 93 95 Oxygen Delivery Method Room Air Room Air MDM MDM MDM Narrative Medical decision making narrative: 84-year-old female with past medical history of proximal atrial fibrillation on Eliquis, CKD, HLD, HTN presents for evaluati (more content not included)... Normal [facility] L499.0042on 03-18-2025 Trop T High Sen 29 ng/L High <=14 [facility] Comment on above: Performed By: #### L 501.5425, L100.0100, L500.2500 #### [facility] [address] [place], [address] L499.0043on 03-18-2025 Trop T High Sen Normal <=14 [facility] Comment on above: Result Comment: Migue gaming via OM: Ordered Performed By: #### L 501.5425, L100.0100, L500.2500 #### [facility] [address] [place], [address] L501.4021on 03-18-2025 Trop T High Sen 25 ng/L High <=14 [facility] Comment on above: Performed By: #### L 501.4021, L500.2500, L100.0100 #### [facility] [address] [place], [address] Magnesiumon 03-18-2025 Magnesium [Mass/Vol] 2.1 mg/dL Normal 1.5-2.2 [facility] Comment on above: Performed By: #### L 501.4021, L500.2500, L100.0100 #### [facility] [address] [place], [address] Magnesium measurement (mass/ volume)Ordered By: Dwight Patricia on 03-18-2025 Magnesium (Unsp spec) [Mass/Vol] 2.1 mg/dL 1.5-2.2 [facility] Troponin T.cardiac [Mass/vol ume] in Serum or Plasma by High sensitivity methodOrdered By: Dwight Patricia on 03-18-2025 Troponin T.cardiac High sensitivity method [Mass/Vol] 29 ng/L High <14 [facility] Absolute lymphocyte countOrd ered By: ED PROVIDER on 03-17-2025 Lymphocytes Auto (Unsp spec) [#/Vol] 3.50 10*3/uL 0.83-4.51 [facility] Absolute lymphocyte countOrd ered By: Omid Foley on 03-17-2025 Lymphocytes Auto (Unsp spec) [#/Vol] 5.15 10*3/uL High 0.83-4.51 [facility] Absolute neutrophil countOrd ered By: ED PROVIDER on 03-17-2025 Neutrophils (Bld) [#/Vol] 4.4 10*3/uL 2.0-7.7 [facility] Absolute neutrophil countOrd ered By: Omid Foley on 03-17-2025 Neutrophils (Bld) [#/Vol] 4.1 10*3/uL 2.0-7.7 [facility] Anion gap in Serum or Plasma Ordered By: Dwight Patricia on 03-17-2025 Anion gap [Moles/Vol] 15 mmol/L 04-07 [facility] Anion gap in Serum or Plasma Ordered By: Omid Foley on 03-17-2025 Anion gap [Moles/Vol] 16 mmol/L High 04-07 [facility] Automated lymphocyte count a s percentage of total leukocytesOrdered By: ED PROVIDER on 03-17-2025 Lymphocytes/100 WBC Auto (Unsp spec) 39.0 % [facility] Automated lymphocyte count a s percentage of total leukocytesOrdered By: Omid Foley on 03-17-2025 Lymphocytes/100 WBC Auto (Unsp spec) 49.6 % High [facility] BUN/creatinine ratioOrdered By: Dwight Patricia on 03-17-2025 Urea nitrogen/Creatinine [Mass ratio] 20.1 mg/mg High 09-12 [facility] BUN/creatinine ratioOrdered By: Omid Foley on 03-17-2025 Urea nitrogen/Creatinine [Mass ratio] 13.6 mg/mg 09-12 [facility] Basic Metabolic Profile (BMP )on 03-17-2025 BUN/CRE 13.6 RATIO Normal 09-12 [facility] Comment on above: Performed By: #### L 501.4021, L500.2500, L100.0100 #### [facility] [address] [place], [address] Calcium [Mass/Vol] 9.6 mg/dL Normal 7.6-11.0 [facility] Comment on above: Performed By: #### L 501.4021, L500.2500, L100.0100 #### [facility] [address] [place], [address] Chloride [Moles/Vol] 100 mmol/L Normal 98-108 [facility] Comment on above: Performed By: #### L 501.4021, L500.2500, L100.0100 #### [facility] [address] [place], [address] CO2 [Moles/Vol] 22.4 mmol/L Normal 21.0-32.0 [facility] Comment on above: Performed By: #### L 501.4021, L500.2500, L100.0100 #### [facility] [address] [place], [address] Creatinine [Mass/Vol] 1.13 mg/dL Normal 0.70-1.20 [facility] Comment on above: Performed By: #### L 501.4021, L500.2500, L100.0100 #### [facility] [address] [place], [address] GAP 16 High 5-15 [facility] Comment on above: Performed By: #### L 501.4021, L500.2500, L100.0100 #### [facility] [address] [place], [address] GFR/1.73 sq M.predicted among non-blacks MDRD (S/P/Bld) [Vol rate/Area] 48 mL/min/{1.73_m2} Low >60 [facility] Comment on above: Result Comment: mL/m in/1.73m2 CKD-EPI Creatinine Equation (2020) Performed By: #### L 501.4021, L500.2500, L100.0100 #### [facility] [address] [place], [address] Glucose [Mass/Vol] 138 mg/dL High 70-99 [facility] Comment on above: Performed By: #### L 501.4021, L500.2500, L100.0100 #### [facility] [address] [place], [address] Potassium [Moles/Vol] 3.9 mmol/L Normal 3.3-5.1 [facility] Comment on above: Result Comment: Hemo lysis present, Results??could be affected. ?? Performed By: #### L 501.4021, L500.2500, L100.0100 #### [facility] [address] [place], [address] Sodium [Moles/Vol] 138 mmol/L Normal 133-145 [facility] Comment on above: Performed By: #### L 501.4021, L500.2500, L100.0100 #### [facility] [address] [place], [address] Urea nitrogen [Mass/Vol] 15 mg/dL Normal 4-19 [facility] Comment on above: Performed By: #### L 501.4021, L500.2500, L100.0100 #### [facility] [address] [place], [address] Basophil percentageOrdered B y: ED PROVIDER on 03-17-2025 Basophils/100 WBC (Bld) 0.6 % 0-1 [facility] Basophil percentageOrdered B y: Omid Foley on 03-17-2025 Basophils/100 WBC (Bld) 0.6 % 0-1 [facility] CBC W/Diff, Automatedon - Absolute Lymph 3.50 X10 3/uL Normal 0.83-4.51 [facility] Comment on above: Performed By: #### L 501.4021, L500.2500, L100.0100 #### [facility] [address] [place], [address] Absolute Neut 4.4 X10 3/uL Normal 2.0-7.7 [facility] Comment on above: Performed By: #### L 501.4021, L500.2500, L100.0100 #### [facility] [address] [place], [address] Basophils/100 WBC (Bld) 0.6 % Normal 0-1 [facility] Comment on above: Performed By: #### L 501.4021, L500.2500, L100.0100 #### [facility] [address] [place], [address] Eosinophils/100 WBC (Bld) 2.4 % Normal 0-5 [facility] Comment on above: Performed By: #### L 501.4021, L500.2500, L100.0100 #### [facility] [address] [place], [address] Erythrocyte distribution width (RBC) [Ratio] 13.9 % Normal 11.6-14.6 [facility] Comment on above: Performed By: #### L 501.4021, L500.2500, L100.0100 #### [facility] [address] [place], [address] Hematocrit (Bld) [Volume fraction] 43.7 % Normal 37-47 [facility] Comment on above: Performed By: #### L 501.4021, L500.2500, L100.0100 #### [facility] [address] [place], [address] Hemoglobin (Bld) [Mass/Vol] 14.8 g/dL Normal 12.0-15.0 [facility] Comment on above: Performed By: #### L 501.4021, L500.2500, L100.0100 #### [facility] [address] [place], [address] IG% 0.300 Normal 0.0-0.9 [facility] Comment on above: Result Comment: IG% - Immature Granulocytes (promyelocytes, myelocytes and metamyelocytes) > 1% indicates that a LEFT SHIFT is Present. Performed By: #### L 501.4021, L500.2500, L100.0100 #### [facility] [address] [place], [address] Lymphocytes/100 WBC (Bld) 39.0 % Normal 19-41 [facility] Comment on above: Performed By: #### L 501.4021, L500.2500, L100.0100 #### [facility] [address] [place], [address] MCH (RBC) [Entitic mass] 30.1 pg Normal 27.0-32.0 [facility] Comment on above: Performed By: #### L 501.4021, L500.2500, L100.0100 #### [facility] [address] [place], [address] MCHC (RBC) [Mass/Vol] 33.9 g/dL Normal 32-36 [facility] Comment on above: Performed By: #### L 501.4021, L500.2500, L100.0100 #### [facility] [address] [place], [address] MCV (RBC) [Entitic vol] 89.0 fL Normal 81-99 [facility] Comment on above: Performed By: #### L 501.4021, L500.2500, L100.0100 #### [facility] [address] [place], [address] Monocytes/100 WBC (Bld) 8.6 % Normal 0-10 [facility] Comment on above: Performed By: #### L 501.4021, L500.2500, L100.0100 #### [facility] [address] [place], [address] Neutrophils/100 WBC (Bld) 49.1 % Normal 47-70 [facility] Comment on above: Performed By: #### L 501.4021, L500.2500, L100.0100 #### [facility] [address] [place], [address] Nucleated RBC (Bld) [#/Vol] 0 10*3/uL Normal 0-5 [facility] Comment on above: Performed By: #### L 501.4021, L500.2500, L100.0100 #### [facility] [address] [place], [address] Platelet mean volume (Bld) [Entitic vol] 9.7 fL Normal 6.2-12.0 [facility] Comment on above: Performed By: #### L 501.4021, L500.2500, L100.0100 #### [facility] [address] [place], [address] Platelets (Bld) [#/Vol] 247 10*3/uL Normal 150-450 [facility] Comment on above: Performed By: #### L 501.4021, L500.2500, L100.0100 #### [facility] [address] [place], [address] RBC (Bld) [#/Vol] 4.91 10*6/uL Normal 4.2-5.4 [facility] Comment on above: Performed By: #### L 501.4021, L500.2500, L100.0100 #### [facility] [address] [place], [address] RDW SD 45.3 fl High 35.1-43.9 [facility] Comment on above: Performed By: #### L 501.4021, L500.2500, L100.0100 #### [facility] [address] [place], [address] WBC (Bld) [#/Vol] 9.0 10*3/uL Normal 4.4-11.0 [facility] Comment on above: Performed By: #### L 501.4021, L500.2500, L100.0100 #### [facility] [address] [place], [address] Absolute Lymph 5.15 X10 3/uL High 0.83-4.51 [facility] Comment on above: Performed By: #### L 501.4021, L500.2500, L100.0100 #### [facility] [address] [place], [address] Absolute Neut 4.1 X10 3/uL Normal 2.0-7.7 [facility] Comment on above: Performed By: #### L 501.4021, L500.2500, L100.0100 #### [facility] [address] [place], [address] Basophils/100 WBC (Bld) 0.6 % Normal 0-1 [facility] Comment on above: Performed By: #### L 501.4021, L500.2500, L100.0100 #### [facility] [address] [place], [address] Eosinophils/100 WBC (Bld) 1.6 % Normal 0-5 [facility] Comment on above: Performed By: #### L 501.4021, L500.2500, L100.0100 #### [facility] [address] [place], [address] Erythrocyte distribution width (RBC) [Ratio] 13.5 % Normal 11.6-14.6 [facility] Comment on above: Performed By: #### L 501.4021, L500.2500, L100.0100 #### [facility] [address] [place], [address] Hematocrit (Bld) [Volume fraction] 47.6 % High 37-47 [facility] Comment on above: Performed By: #### L 501.4021, L500.2500, L100.0100 #### [facility] [address] [place], [address] Hemoglobin (Bld) [Mass/Vol] 15.8 g/dL High 12.0-15.0 [facility] Comment on above: Performed By: #### L 501.4021, L500.2500, L100.0100 #### [facility] [address] [place], [address] IG% 0.300 Normal 0.0-0.9 [facility] Comment on above: Result Comment: IG% - Immature Granulocytes (promyelocytes, myelocytes and metamyelocytes) > 1% indicates that a LEFT SHIFT is Present. Performed By: #### L 501.4021, L500.2500, L100.0100 #### [facility] [address] [place], [address] Lymphocytes/100 WBC (Bld) 49.6 % High 19-41 [facility] Comment on above: Performed By: #### L 501.4021, L500.2500, L100.0100 #### [facility] [address] [place], [address] MCH (RBC) [Entitic mass] 29.9 pg Normal 27.0-32.0 [facility] Comment on above: Performed By: #### L 501.4021, L500.2500, L100.0100 #### [facility] [address] [place], [address] MCHC (RBC) [Mass/Vol] 33.2 g/dL Normal 32-36 [facility] Comment on above: Performed By: #### L 501.4021, L500.2500, L100.0100 #### [facility] [address] [place], [address] MCV (RBC) [Entitic vol] 90.0 fL Normal 81-99 [facility] Comment on above: Performed By: #### L 501.4021, L500.2500, L100.0100 #### [facility] [address] [place], [address] Monocytes/100 WBC (Bld) 8.0 % Normal 0-10 [facility] Comment on above: Performed By: #### L 501.4021, L500.2500, L100.0100 #### [facility] [address] [place], [address] Neutrophils/100 WBC (Bld) 39.9 % Low 47-70 [facility] Comment on above: Performed By: #### L 501.4021, L500.2500, L100.0100 #### [facility] [address] [place], [address] Nucleated RBC (Bld) [#/Vol] 0 10*3/uL Normal 0-5 [facility] Comment on above: Performed By: #### L 501.4021, L500.2500, L100.0100 #### [facility] [address] [place], [address] Platelet mean volume (Bld) [Entitic vol] 10.7 fL Normal 6.2-12.0 [facility] Comment on above: Performed By: #### L 501.4021, L500.2500, L100.0100 #### [facility] [address] [place], [address] Platelets (Bld) [#/Vol] 267 10*3/uL Normal 150-450 [facility] Comment on above: Performed By: #### L 501.4021, L500.2500, L100.0100 #### [facility] [address] [place], [address] RBC (Bld) [#/Vol] 5.29 10*6/uL Normal 4.2-5.4 [facility] Comment on above: Performed By: #### L 501.4021, L500.2500, L100.0100 #### [facility] [address] [place], [address] RDW SD 45.0 fl High 35.1-43.9 [facility] Comment on above: Performed By: #### L 501.4021, L500.2500, L100.0100 #### [facility] [address] [place], [address] WBC (Bld) [#/Vol] 10.4 10*3/uL Normal 4.4-11.0 [facility] Comment on above: Performed By: #### L 501.4021, L500.2500, L100.0100 #### [facility] [address] [place], [address] Carbon dioxide, total [Moles /volume] in Central venous bloodOrdered By: Dwight Patricia on 03-17-2025 CO2 [Moles/Vol] 20.8 mmol/L Low 21.0-32.0 [facility] Comment on above: Performed By: #### L 501.4021, L500.2500, L100.0100 #### [facility] [address] [place], [address] Carbon dioxide, total [Moles /volume] in Central venous bloodOrdered By: Omid Foley on 03-17-2025 CO2 [Moles/Vol] 22.4 mmol/L 21.0-32.0 [facility] Chest 1 View (Portable)on Chest 1 View (Portable) [facility] Services [address] [place] [address] Chest 1 View (Portable) MR#: [id number] Acct: [id number] Name: AL LEWIS ANN Rep #: [id number] : 1940 F 84 From: Eduin Sim MD PCP: Dr. Jacquie Coleman MD Status: PRE ER Study: Chest 1 View (Portable) Date of Exam: 03/17/25 Exam# [id number] Ordering Dr: Provider,Ed P. PROCEDURE: CHEST 1 VIEW (PORTABLE) 03/17/2025 REASON FOR EXAM: CHEST PAIN TECHNIQUE: Frontal view of the chest. COMPARISON: 12/30/2024 FINDINGS: Hardware: None Heart: Cardiac and mediastinal contours are stable. Lungs: The lungs are clear. Elevated right hemidiaphragm. Bones: The bones are unremarkable. Other: RAD/Chest 1 View (Portable) IMPRESSION: No Acute Findings. Reading Location: [id number] CC: Dr. Jacquie Coleman MD; ED PHYSICIAN PROVIDER Cartridge Feeder: Signed Normal [facility] Chloride assayOrdered By: Avery Patricia on 03-17-2025 Chloride [Moles/Vol] 103 mmol/L 98-108 [facility] Comment on above: Performed By: #### L 501.4021, L500.2500, L100.0100 #### [facility] [address] [place], [address] Chloride assayOrdered By: Benton Foley on 03-17-2025 Chloride [Moles/Vol] 100 mmol/L 98-108 [facility] Emergency Department Summary on 03-17-2025 Emergency Department Summary [facility] Medical Records Department [address] [place] [address] Emergency Department Summary 03/17/25 MR#: [id number] Acct: [id number] Name: AL LEWIS ANN Rep #: [id number] : 1940 84 From: Omid Foley DO PCP: Dr. Jacquie Coleman MD Status:DEP ER Location: ED HPI History of Present Illness Chief Complaint: Palpitations Informant: patient and friend Narrative Narrative: 84-year-old female history of paroxysmal atrial fibrillation presenting to the emergency room with atrial fibrillation. Patient tells me that at 2200 hrs. she did not feel good so she took a couple Tylenol. Around 20 to 30 hours she was laying in bed and felt the pounding in her back so she got up and put herself on the pulse oximeter and showed her heart rate to be fast. She took an extra diltiazem around 20 to 30 hours. She notes that she has not missed any doses of Eliquis in the past month. She notes that she has followed up with cardiology because she was diagnosed with A-fib in December. She is currently seeing Dr. Pena. She states that she underwent stress test last week that was negative. Patient denies any chest pain with the current episode. [facility] Medical History Palpitations Cardiac murmur Vitamin D deficiency Atrial fibrillation with RVR Obesity GERD (gastroesophageal reflux disease) CKD (chronic kidney disease), stage III HLD (hyperlipidemia) Hypertension Cataracts, bilateral Home Medications ???Medication ???Instructions ???Recorded ???Last Taken ???Type simvastatin 10 mg tablet 10 mg PO QHS 06/24/16 01/24/20 His tory pantoprazole 40 mg tablet,delayed 40 mg PO DAILY 12/30/24 Unknown H istory release (Protonix) apixaban 5 mg tablet (Eliquis) 5 mg PO BID #60 tabs 12/31/24 Unkn own Rx diltiazem HCl 120 mg 120 mg PO BID #60 caps 12/31/24 Un known Rx capsule,extended release 24 hr furosemide 20 mg tablet (Lasix) 20 mg PO DAILY #30 tabs 12/31/24 U nknown Rx potassium chloride 10 mEq 10 meq PO DAILY #30 tabs 12/31/24 Unknown Rx tablet,extended release sennosides 8.6 mg tablet (Senokot) 8.6 mg PO DAILY 12/31/24 Unknown History Allergy/AdvReac Type Severity Reaction Status Date / Time morphine Allergy Anaphylaxis Verified 03/17/25 01:47 niacin Allergy Rash Verified 03/17/25 01:47 procaine HCl (From Novocain) Allergy Anaphylaxis Verified 03/17/25 01:47 tetracycline Allergy Rash Verified 03/17/25 01:47 omeprazole AdvReac Severe Diarrhea Verified 03/17/25 01:47 Family History Father Cancer Hypertension Respiratory disease Mother Diabetes Epilepsy Heart disease Brother CVA (cerebral vascular accident) Surgical History History of cataract surgery History of appendectomy History of total hysterectomy Social History household members: none Smoking Status: Never smoker alcohol intake: never substance use type: does not use additional social history: Does Take Aspirin Does Not Take Ibuprofen ROS ROS ED Constitutional Constitutional ED: Denies chills, fever(s) or weight loss Eyes Eyes: Denies change in vision or diplopia ENT ENT ED: Denies ear pain, rhinorrhea or sore throat Cardiovascular Cardiovascular: Reports palpitations and racing heartbeat; Denies chest pain or orthopnea Respiratory/Chest Respiratory/Chest: Denies cough, dyspnea or orthopnea Gastrointestinal Gastrointestinal: Denies abdominal pain, diarrhea, nausea or vomiting Genitourinary Genitourinary ED: Denies dysuria, hematuria or urinary frequency Musculoskeletal Musculoskeletal: Denies arthralgias or myalgias Integumentary Denies abscess or rash Neurologic Neurologic: Denies headache(s) or weakness Psychiatric Psychiatric: Denies anxiety, depression, suicidal ideation or suicidal thoughts Endocrine Endocrinology: Denies polydipsia, polyphagia or polyuria Allergic/Immunologic Allergic/Immunologic ED: Denies mouth swelling, tongue swelling or urticaria EXAM Physical Exam Const Vital Signs: 03/17/25 01:40 03/17/25 01:40 03/17/25 01:45 Temperature 97.8 F Temperature Source Oral Pulse Rate 159 H 124 H Pulse Rate [1 (Initial Baseline)] Pulse Rate [2] Pulse Rate [3] Pulse Rate [4] Pulse Rate [5] Pulse Rate [6] Pulse Rate [8] Respiratory Rate 20 H 18 Respiratory Rate [1 (Initial Baseline)] Respiratory Rate [2] Respiratory Rate [3] Respiratory Rate [4] Respiratory Rate [5] Respiratory Rate [6] Respiratory Rate [8] Respiratory Effort Normal Non-Labored Blood Pressure 144/94 H 127/91 H Blood Pressure [1 (Initial Baselin (more content not included)... Normal [facility] Eosinophil percentageOrdered By: ED PROVIDER on 03-17-2025 Eosinophils/100 WBC (Bld) 2.4 % 0-5 [facility] Eosinophil percentageOrdered By: Omid Foley on 03-17-2025 Eosinophils/100 WBC (Bld) 1.6 % 0-5 [facility] Erythrocyte distribution wid th (RBC) [Ratio]Ordered By: Omid Foley on 03-17-2025 Erythrocyte distribution width (RBC) [Entitic vol] 45.0 fL High 35.1-43.9 [facility] Erythrocyte distribution wid th ratioOrdered By: ED PROVIDER on 03-17-2025 Erythrocyte distribution width (RBC) [Ratio] 13.9 % 11.6-14.6 [facility] Erythrocyte distribution wid th ratioOrdered By: Omid Foley on 03-17-2025 Erythrocyte distribution width (RBC) [Ratio] 13.5 % 11.6-14.6 [facility] Erythrocyte distribution wid th standard deviationOrdered By: ED PROVIDER on 03-17-2025 Erythrocyte distribution width (RBC) [Ratio] 45.3 fl High 35.1-43.9 [facility] Erythrocyte distribution wid th standard deviationOrdered By: Omid Foley on 03-17-2025 Erythrocyte distribution width (RBC) [Ratio] 45.0 fl High 35.1-43.9 [facility] GFR/1.73 sq M.predicted jaime g non-blacks MDRD (S/P/Bld) [Vol rate/Area]Ordered By: Omid Foley on 03-17-2025 Estimated GFR (MDRD) Non-Af Amer 48 Low >60 [facility] Comment on above: mL/min/1.73m2 CKD-EP I Creatinine Equation (2020) Glomerular filtration rate ( GFR) estimation/1.73 sq m using serum, plasma, or whole bOrdered By: Dwight Patricia on 03-17-2025 GFR/1.73 sq M.predicted among non-blacks MDRD (S/P/Bld) [Vol rate/Area] 67 mL/min/{1.73_m2} >60 [facility] Comment on above: mL/min/1.73m2 CKD-EP I Creatinine Equation (2020) Result Comment: mL/m in/1.73m2 CKD-EPI Creatinine Equation (2020) Performed By: #### L 501.4021, L500.2500, L100.0100 #### [facility] [address] [place], [place], [id number] Glomerular filtration rate ( GFR) estimation/1.73 sq m using serum, plasma, or whole bOrdered By: Omid Foley on 03-17-2025 GFR/1.73 sq M.predicted among non-blacks MDRD (S/P/Bld) [Vol rate/Area] 48 mL/min/{1.73_m2} Low >60 [facility] Comment on above: mL/min/1.73m2 CKD-EP I Creatinine Equation (2020) Hematocrit Auto (Bld) [Volum e fraction]Ordered By: ED PROVIDER on 03-17-2025 Hematocrit (Bld) [Volume fraction] 43.7 % 37-47 [facility] Hematocrit Auto (Bld) [Volum e fraction]Ordered By: Omid Foley on 03-17-2025 Hematocrit (Bld) [Volume fraction] 47.6 % High 37-47 [facility] Hemoglobin measurementOrdere d By: ED PROVIDER on 03-17-2025 Hemoglobin (Bld) [Mass/Vol] 14.8 g/dL 12.0-15.0 [facility] Hemoglobin measurementOrdere d By: Omid Foley on 03-17-2025 Hemoglobin (Bld) [Mass/Vol] 15.8 g/dL High 12.0-15.0 [facility] Immature granulocytes/100 WB C Auto (Bld)Ordered By: ED PROVIDER on 03-17-2025 Immature granulocytes/100 WBC (Bld) 0.300 % 0.0-0.9 [facility] Comment on above: IG% - Immature Granu locytes (promyelocytes, myelocytes and metamyelocytes) > 1% indicates that a LEFT SHIFT is Present. Immature granulocytes/100 WB C Auto (Bld)Ordered By: Omid Foley on 03-17-2025 Immature granulocytes/100 WBC (Bld) 0.300 % 0.0-0.9 [facility] Comment on above: IG% - Immature Granu locytes (promyelocytes, myelocytes and metamyelocytes) > 1% indicates that a LEFT SHIFT is Present. Lymphocytes Auto (Unsp spec) [#/Vol]Ordered By: mOid Foley on 03-17-2025 Lymphocytes (Bld) [#/Vol] 5.15 10*3/uL High 0.83-4.51 [facility] Lymphocytes/100 WBC Auto (Un sp spec)Ordered By: Omid Foley on 03-17-2025 Lymphocytes/100 WBC (Bld) 49.6 % High 19-41 [facility] MCV (mean corpuscular volume ) determinationOrdered By: ED PROVIDER on 03-17-2025 MCV (RBC) [Entitic vol] 89.0 fL 81-99 [facility] MCV (mean corpuscular volume ) determinationOrdered By: Omid Foley on 03-17-2025 MCV (RBC) [Entitic vol] 90.0 fL 81-99 [facility] Magnesiumon 03-17-2025 Magnesium [Mass/Vol] 2.1 mg/dL Normal 1.5-2.2 [facility] Comment on above: Performed By: #### L 501.5200 #### [facility] [address] [place] [address], [address] Magnesium (Unsp spec) [Mass/ Vol]Ordered By: Omid Foley on 03-17-2025 Magnesium [Mass/Vol] 2.1 mg/dL 1.5-2.2 [facility] Magnesium measurement (mass/ volume)Ordered By: Omid Foley on 03-17-2025 Magnesium (Unsp spec) [Mass/Vol] 2.1 mg/dL 1.5-2.2 [facility] Mean corpuscular hemoglobin (MCH) determinationOrdered By: ED PROVIDER on 03-17-2025 MCH (RBC) [Entitic mass] 30.1 pg 27.0-32.0 [facility] Mean corpuscular hemoglobin (MCH) determinationOrdered By: Omid Foley on 03-17-2025 MCH (RBC) [Entitic mass] 29.9 pg 27.0-32.0 [facility] Mean corpuscular hemoglobin concentration (MCHC) determinationOrdered By: ED PROVIDER on 03-17-2025 MCHC (RBC) [Mass/Vol] 33.9 g/dL 32-36 [facility] Mean corpuscular hemoglobin concentration (MCHC) determinationOrdered By: Omid Foley on 03-17-2025 MCHC (RBC) [Mass/Vol] 33.2 g/dL 32-36 [facility] Mean platelet volume determi nationOrdered By: ED PROVIDER on 03-17-2025 Platelet mean volume (Bld) [Entitic vol] 9.7 fL 6.2-12.0 [facility] Mean platelet volume determi nationOrdered By: Omid Foley on 03-17-2025 Platelet mean volume (Bld) [Entitic vol] 10.7 fL 6.2-12.0 [facility] Monocyte percentageOrdered B y: ED PROVIDER on 03-17-2025 Monocytes/100 WBC (Bld) 8.6 % 0-10 [facility] Monocyte percentageOrdered B y: Omid Foley on 03-17-2025 Monocytes/100 WBC (Bld) 8.0 % 0-10 [facility] Neutrophil percentageOrdered By: ED PROVIDER on 03-17-2025 Neutrophils/100 WBC (Bld) 49.1 % 47-70 [facility] Neutrophil percentageOrdered By: Omid Foley on 03-17-2025 Neutrophils/100 WBC (Bld) 39.9 % Low 47-70 [facility] Nucleated red blood cell per centageOrdered By: ED PROVIDER on 03-17-2025 Nucleated RBC/100 WBC (Bld) [Ratio] 0 % 0-5 [facility] Nucleated red blood cell per centageOrdered By: Omid Foley on 03-17-2025 Nucleated RBC/100 WBC (Bld) [Ratio] 0 % 0-5 [facility] Platelet countOrdered By: ED PROVIDER on 03-17-2025 Platelets (Bld) [#/Vol] 247 10*3/uL 150-450 [facility] Platelet countOrdered By: Benton Foley on 03-17-2025 Platelets (Bld) [#/Vol] 267 10*3/uL 150-450 [facility] Potassium (Unsp spec) [Mass/ Vol]Ordered By: Omid Foley on 03-17-2025 Potassium [Moles/Vol] 3.9 mmol/L 3.3-5.1 [facility] Comment on above: Hemolysis present, R esults could be affected. Potassium measurement (mass/ volume)Ordered By: Dwight Patricia on 03-17-2025 Potassium (Unsp spec) [Mass/Vol] 3.9 mmol/L 3.3-5.1 [facility] Potassium measurement (mass/ volume)Ordered By: Omid Foley on 03-17-2025 Potassium (Unsp spec) [Mass/Vol] 3.9 mmol/L 3.3-5.1 [facility] Comment on above: Hemolysis present, R esults could be affected. RBC Auto (Bld) [#/Vol]Ordere d By: ED PROVIDER on 03-17-2025 RBC (Bld) [#/Vol] 4.91 10*6/uL 4.2-5.4 [facility] RBC Auto (Bld) [#/Vol]Ordere d By: Omid Foley on 03-17-2025 RBC (Bld) [#/Vol] 5.29 10*6/uL 4.2-5.4 [facility] Serum creatinine measurement (mass/volume)Ordered By: Dwight Patricia on 03-17-2025 Creatinine [Mass/Vol] 0.86 mg/dL 0.70-1.20 [facility] Comment on above: Performed By: #### L 501.4021, L500.2500, L100.0100 #### [facility] [address] [place], [address] Serum creatinine measurement (mass/volume)Ordered By: Omid Foley on 03-17-2025 Creatinine [Mass/Vol] 1.13 mg/dL 0.70-1.20 [facility] Serum glucose measurement (m ass/volume)Ordered By: Dwight Patricia on 03-17-2025 Glucose [Mass/Vol] 115 mg/dL High 70-99 [facility] Comment on above: Performed By: #### L 501.4021, L500.2500, L100.0100 #### [facility] [address] [place], [address] Serum glucose measurement (m ass/volume)Ordered By: Omid Folye on 03-17-2025 Glucose [Mass/Vol] 138 mg/dL High 70-99 [facility] Serum or plasma calcium balaji urement (mass/volume)Ordered By: Dwight Davey on 03-17-2025 Calcium [Mass/Vol] 9.3 mg/dL 7.6-11.0 [facility] Comment on above: Performed By: #### L 501.4021, L500.2500, L100.0100 #### [facility] [address] [place], [address] Serum or plasma calcium balaji urement (mass/volume)Ordered By: Omid Foley on 03-17-2025 Calcium [Mass/Vol] 9.6 mg/dL 7.6-11.0 [facility] Serum or plasma urea nitroge n measurement (mass/volume)Ordered By: Dwight Patricia on 03-17-2025 Urea nitrogen [Mass/Vol] 17 mg/dL 03-12 [facility] Comment on above: Performed By: #### L 501.4021, L500.2500, L100.0100 #### [facility] [address] [place], [address] Serum or plasma urea nitroge n measurement (mass/volume)Ordered By: Omid Foley on 03-17-2025 Urea nitrogen [Mass/Vol] 15 mg/dL 03-12 [facility] Sodium levelOrdered By: Terry Patricia on 03-17-2025 Sodium [Moles/Vol] 138 mmol/L 133-145 [facility] Comment on above: Performed By: #### L 501.4021, L500.2500, L100.0100 #### [facility] [address] [place], [address] Sodium levelOrdered By: Graham Foley on 03-17-2025 Sodium [Moles/Vol] 138 mmol/L 133-145 [facility] Troponin T.cardiac [Mass/vol ume] in Serum or Plasma by High sensitivity methodOrdered By: Dwight Patricia on 03-17-2025 Troponin T.cardiac High sensitivity method [Mass/Vol] 25 ng/L High <14 [facility] White blood cell (WBC) count Ordered By: ED PROVIDER on 03-17-2025 WBC (Bld) [#/Vol] 9.0 10*3/uL 4.4-11.0 [facility] White blood cell (WBC) count Ordered By: Omid Foley on 03-17-2025 WBC (Bld) [#/Vol] 10.4 10*3/uL 4.4-11.0 [facility] Cardiovascular stress test r eportOrdered By: Jozef Pena on 03-07-2025 Study report [facility] [address] [place] [address] MR#: [id number] Acct: [id number] Name: JOSHUAAL Rep #: [id number] : 1940 84 From: Jozef Pena MD Primary Care: Dr. Jacquie Coleman MD Statu s: REG CLI Referring Dr: Jozef Pena MD Sex: F C Stress Test Report Pharmacologic myocardial perfusion stress test. 84-year-old lady with a history of atrial fibrillation Resting EKG demonstrates sinus rhythm with premature atrial complexes with a rate of 77 bpm. Resting blood pressure is 128/70 mmHg. 0.4 mg of regadenoson was infused per usual protocol followed by rapid intravenous saline flush injection. Continuous EKG monitoring was performed. The maximum heart rate was91 bpm which was 66% of max impacted heart rate the maximum workload was 1 metabolic equivalent. At rest there were no ST or T wave changes noted to suggest ischemia and at peak infusion nonspecific ST changes were noted which did not meet the criteria for ischemia. No clinical angina is noted. The final blood pressure was 124/60 mmHg. Myocardial perfusion protocol. 13.1 mCi of technetium 99m sestamibi was injected at rest. 0.4 mg of regadenoson was infused per usual protocol. At peak infusion 40.9 mCi of technetium 99m sestamibi was injected stress images were obtained stress and rest images were reconstructed and compared in the short axis vertical long and horizontal long axis. Gated images were also obtained. Perfusion SPECT analysis: Review of the stress images demonstrate normal uptake of tracer noted in all areas of the myocardium. The resting images similar demonstrated normal uptake of tracer noted in all areas of the myocardium. No areas of reversibility are noted to suggest ischemia and no previous infarct is noted. Gated SPECT analysis: The gated ejection fraction is 74%. Conclusion: Normal pharmacologic myocardial perfusion stress test. Preserved ejection fraction. 03/07/25 1106 Date _ Jozef Pena MD CC: Dr. Jozef Pena MD; Dr. Jacquie Coleman MD ~ Date Dictated: 03/07/251102 Date Transcribed: 03/07/251102 Cartridge Feeder: CO Signed [facility] Work Phone: Stress Reporton 03-07-2025 Stress Report [facility] [address] [place] [address] MR#: [id number] Acct: [id number] Name: AL LEWIS ANN Rep #: [id number] : 1940 84 From: Jozef Pena MD Primary Care: Dr. Jacquie Coleman MD Status: REG CLI Referring Dr: Jozef Pena MD Sex: F C Stress Test Report Pharmacologic myocardial perfusion stress test. 84-year-old lady with a history of atrial fibrillation Resting EKG demonstrates sinus rhythm with premature atrial complexes with a rate of 77 bpm. Resting blood pressure is 128/70 mmHg. 0.4 mg of regadenoson was infused per usual protocol followed by rapid intravenous saline flush injection. Continuous EKG monitoring was performed. The maximum heart rate was 91 bpm which was 66% of max impacted heart rate the maximum workload was 1 metabolic equivalent. At rest there were no ST or T wave changes noted to suggest ischemia and at peak infusion nonspecific ST changes were noted which did not meet the criteria for ischemia. No clinical angina is noted. The final blood pressure was 124/60 mmHg. Myocardial perfusion protocol. 13.1 mCi of technetium 99m sestamibi was injected at rest. 0.4 mg of regadenoson was infused per usual protocol. At peak infusion 40.9 mCi of technetium 99m sestamibi was injected stress images were obtained stress and rest images were reconstructed and compared in the short axis vertical long and horizontal long axis. Gated images were also obtained. Perfusion SPECT analysis: Review of the stress images demonstrate normal uptake of tracer noted in all areas of the myocardium. The resting images similar demonstrated normal uptake of tracer noted in all areas of the myocardium. No areas of reversibility are noted to suggest ischemia and no previous infarct is noted. Gated SPECT analysis: The gated ejection fraction is 74%. Conclusion: Normal pharmacologic myocardial perfusion stress test. Preserved ejection fraction. 03/07/25 1106 Date Jozef Pena MD CC: Dr. Jozef Pena MD; Dr. Jacquie Coleman MD Date Dictated: 03/07/25 110 Date Transcribed: 03/07/251102 Cartridge Feeder: CO Signed Normal [facility] 12 Lead EKG performed by [facility] on 02-23-2025 12 Lead EKG performed by [place] [address] [place] [address] 12 Lead EKG performed by [facility] 02/23/25 1257 MR#: [id number] Acct: [id number] Name: AL LEWIS ANN Rep #: [id number] : 1940 84 From: Jozef Pena MD Attending Dr: Dr. Jozef Pena MD Status: DEP A MB Ordering Dr: Jozef Pena MD Date: 02/23/25 Location: [facility] Sex: F C Admitted: BMS/12 Lead EKG performed by [facility] ECG Report Interpretation ----Sinus Rhythm - frequent PAC s # PACs = 2.-Left axis -anterior fascicular block. Voltage criteria for LVH (R(aVL) exceeds 1.01 mV). -Poor R-wave progression -may be secondary to left ventricular hypertrophy consider old anterior infarct. - Nonspecific T-abnormality. ABNORMAL Electronically signed on 03/02/2025 at 11:24 by Jozef Pena [employer] Version 8610 03/02/25 1130 Date Jozef Pena MD CC: Dr. Jacquie Coleman MD Date Dictated: 02/23/25 1257 Date Transcribed: 02/23/25 1257 Cartridge Feeder: CO Signed Normal [facility] Cardiology Visit Reporton Cardiology Visit Report [facility] [address] [place] [address]. [address] [place] [address] OFFICE VISIT Date of Service: 02/23/25 MR#: [id number] Acct: [id number] Name: JOSHUAAL Rep #: [id number] : 1940 Provider: Dr. Jozef Pena MD Age/Sex: 84/F Location: [facility] Status: Signed HPI HPI History of Present Illness Details: Pleasant 84-year-old lady with a history of hypertension who presented to the emergency room on 30 December with palpitations which have been going on for a few hours. She says that this was preceded by a headache and then she realized that her blood pressure and heart rate were elevated. She went to the emergency room and EKG was done which demonstrated atrial fibrillation with a rapid ventricular response rate of approximately 150 bpm with a leftward axis. She was given intravenous diltiazem and converted back to sinus rhythm with a EKG demonstrating sinus bradycardia. She does have a [id number] score of at least 3 and was started on anticoagulation. She has been checking her blood pressures at home and they have been in the normotensive range and she does have documentation of this. An echocardiogram was performed which demonstrated an ejection fraction of approximately 60% with no wall motion abnormalities present. TSH was also noted to be mildly elevated. Free T4 was normal. She tells me that she has done well since and denies any symptomatology her physical exam today is unremarkable. Her EKG does confirm sinus rhythm with no acute changes. Intake Vital Signs 12/31/24 00:13 02/23/25 12:56 Height 5 ft 2 in 5 ft 2 in Weight: 170 lb BMI 31.1 BP 156/86 H Blood Pressure Location Lt brachial Position Sitting Respiration 16 Pulse 89 Pulse Source Monitor Pulse Oximetry (%) 96 Intake Visit Reasons: S/P [facility] 12/31 ([facility] ER) Watershed Manager Required: No Accompanied by: Granddaughter Is patient in pain?: No Allergies morphine Allergy (Verified 02/23/25 13:03) Anaphylaxis niacin Allergy (Verified 02/23/25 13:03) Rash procaine HCl (From Novocain) Allergy (Verified 02/23/25 13:03) Anaphylaxis tetracycline Allergy (Verified 02/23/25 13:03) Rash omeprazole Adverse Reaction (Severe, Verified 02/23/25 13:03) Diarrhea Medications ???Medication ???Instructions ???Recorded ???Confirmed ???Type simvastatin 10 mg tablet 10 mg PO QHS 06/24/16 02/23/25 His tory pantoprazole 40 mg tablet,delayed 40 mg PO DAILY 12/30/24 02/23/25 History release (Protonix) apixaban 5 mg tablet (Eliquis) 5 mg PO BID #60 tabs 12/31/24 04/0 01/18 Rx diltiazem HCl 120 mg 120 mg PO BID #60 caps 12/31/24 Rx capsule,extended release 24 hr furosemide 20 mg tablet (Lasix) 20 mg PO DAILY #30 tabs 12/31/24 0 02/23/25 Rx potassium chloride 10 mEq 10 meq PO DAILY #30 tabs 02/07/25 04/02/25 Rx tablet,extended release sennosides 8.6 mg tablet (Senokot) 8.6 mg PO DAILY 12/31/24 5 History Have you fallen in the past year?: No PFSH Medical History Palpitations Cardiac murmur Vitamin D deficiency Atrial fibrillation with RVR Obesity GERD (gastroesophageal reflux disease) CKD (chronic kidney disease), stage III HLD (hyperlipidemia) Hypertension Cataracts, bilateral Surgical History History of cataract surgery History of appendectomy History of total hysterectomy Family History Father Cancer Hypertension Respiratory disease Mother Diabetes Epilepsy Heart disease Brother CVA (cerebral vascular accident) Social History household members: none Smoking Status: Never smoker alcohol intake: never substance use type: does not use additional social history: Does Take Aspirin Does Not Take Ibuprofen ROS Const Const: Negative for fatigue, weakness, headache(s), daytime sleepiness or difficulty sleeping ENT ENT: Negative for headache(s), dizziness or Nosebleed/epistaxis Cardio Chest Pain: No Palpitations: No Edema: Bilateral (BLE trace in the evenings) Resp Respiratory: Negative for SOB with activity, SOB at rest, SOB orthopnea SOB lying down or Cough GI GI: Negative nausea, vomiting or heartburn Neuro Neuro: Negative for dizziness, lightheadedness, near syncope, headache(s) or weakness Endo Endo: Negative for fatigue Cardiology Exam Const Appearance: cooperative, healthy appearing, no acute distress, well developed and well groomed Nutritional Appearance: average body habitus and well nourished Orientation: alert, awake and oriented x3 Head Head: normal to inspection, normocephalic and atraumatic Ears: hearing grossly normal bilateral (more content not included)... Normal [facility] BNP,B-Type NATRIURETIC PEPTI Kaylah 01-13-2025 Natriuretic peptide B (Bld) [Mass/Vol] 85.3 pg/mL Normal 0-100 [facility] Comment on above: Performed By: #### L 501.4021, L500.2500, L100.0100 #### [facility] [address] [place], [address] BNP (brain natriuretic pepti de measurement)Ordered By: Jacquie Coleman on 01-11-2025 Natriuretic peptide B (Bld) [Mass/Vol] 85.3 pg/mL 0-100 [facility] Basic Metabolic Profile (BMP )on 01-11-2025 BUN/CRE 15.2 RATIO Normal 10-20 [facility] Comment on above: Performed By: #### L 501.4021, L500.2500, L100.0100 #### [facility] [address] [place], [address] CA,Total 9.6 mg/dL Normal 8.5-10.1 [facility] Comment on above: Performed By: #### L 501.4021, L500.2500, L100.0100 #### [facility] [address] [place], [address] Chloride [Moles/Vol] 103 mmol/L Normal 98-107 [facility] Comment on above: Performed By: #### L 501.4021, L500.2500, L100.0100 #### [facility] [address] [place], [address] CO2 [Moles/Vol] 27.0 mmol/L Normal 21.0-32.0 [facility] Comment on above: Performed By: #### L 501.4021, L500.2500, L100.0100 #### [facility] [address] [place], [address] Creatinine [Mass/Vol] 0.86 mg/dL Normal 0.55-1.02 [facility] Comment on above: Result Comment: The validity of the calculated GFR GFRAA in patients over 70 years has not been determined. Clinical correlation is essential. Performed By: #### L 501.4021, L500.2500, L100.0100 #### [facility] [address] [place], [address] EST GFR - AA 81 mL/min Normal >60 [facility] Comment on above: Result Comment: Afri can Malaysian GFR Calc Performed By: #### L 501.4021, L500.2500, L100.0100 #### [facility] [address] [place], [address] GAP 6 Normal 5-15 [facility] Comment on above: Performed By: #### L 501.4021, L500.2500, L100.0100 #### [facility] [address] [place], [address] GFR/1.73 sq M.predicted among non-blacks MDRD (S/P/Bld) [Vol rate/Area] 67 mL/min/{1.73_m2} Normal >60 [facility] Comment on above: Result Comment: Non- GFR Calc Performed By: #### L 501.4021, L500.2500, L100.0100 #### [facility] [address] [place], [address] Glucose [Mass/Vol] 109 mg/dL High 74-106 [facility] Comment on above: Result Comment: Fast ing Glucose result from 100 to 125 mg/dL suggests IMPAIRED HOMEOSTASIS per A.D.A. criteria. Performed By: #### L 501.4021, L500.2500, L100.0100 #### [facility] [address] [place], [address] Potassium [Moles/Vol] 4.1 mmol/L Normal 3.5-5.1 [facility] Comment on above: Performed By: #### L 501.4021, L500.2500, L100.0100 #### [facility] [address] [place], [address] Sodium [Moles/Vol] 136 mmol/L Normal 136-145 [facility] Comment on above: Performed By: #### L 501.4021, L500.2500, L100.0100 #### [facility] [address] [place], [address] Urea nitrogen [Mass/Vol] 13 mg/dL Normal -18 [facility] Comment on above: Performed By: #### L 501.4021, L500.2500, L100.0100 #### [facility] [address] [place], [address] Blood urea nitrogen (BUN)/cr eatinine ratioOrdered By: Jacquie Coleman on 01-11-2025 Urea nitrogen/Creatinine [Mass ratio] 15.2 mg/mg 10-20 [facility] Carbon dioxide measurementOr dered By: Jacquie Coleman on 01-11-2025 CO2 [Moles/Vol] 27.0 mmol/L 21.0-32.0 [facility] Chloride measurementOrdered By: Jacquie Coleman on 01-11-2025 Chloride [Moles/Vol] 103 mmol/L 98-107 [facility] Direct serum free thyroxine (FT4) measurementOrdered By: Jacquie Coleman on 01-11-2025 Free T4 [Mass/Vol] 0.92 ng/dL 0.76-1.46 [facility] Estimated glomerular filtrat ion rate (GFR) AmericanOrdered By: Jacquie Coleman on 01-11-2025 Estimated GFR (MDRD) Amer 81 mL/min >60 [facility] Comment on above: GFR Calc Glomerular filtration rate ( GFR) estimationOrdered By: Jacquie Coleman on 01-11-2025 Estimated GFR (MDRD) Non-Af Amer 67 mL/min >60 [facility] Comment on above: Non- GFR Calc GFR/1.73 sq M.predicted among non-blacks MDRD (S/P/Bld) [Vol rate/Area] 67 mL/min/{1.73_m2} >60 [facility] Comment on above: Non- GFR Calc Glucose measurementOrdered B y: Jacquie Coleman on 01-11-2025 Glucose [Mass/Vol] 109 mg/dL High 74-106 [facility] Comment on above: Fasting Glucose resu lt from 100 to 125 mg/dL suggests IMPAIRED HOMEOSTASIS per A.D.A. criteria. Potassium measurementOrdered By: Jacquie Coleman on 01-11-2025 Potassium [Moles/Vol] 4.1 mmol/L 3.5-5.1 [facility] Serum anion gap measurementO rdered By: Jacquie Coleman on 01-11-2025 Anion gap [Moles/Vol] 6 mmol/L 5-15 [facility] Serum or plasma calcium balaji urement (mass/volume)Ordered By: Jacquie Coleman on 01-11-2025 Calcium [Mass/Vol] 9.6 mg/dL 8.5-10.1 [facility] Serum or plasma creatinine m easurement (mass/volume)Ordered By: Jacquie Coleman on 01-11-2025 Creatinine [Mass/Vol] 0.86 mg/dL 0.55-1.02 [facility] Comment on above: The validity of the calculated GFR & GFRAA in patients over 70 years has not been determined. Clinical correlation is essential. Serum or plasma thyroid stim ulating hormone (TSH) measurement (units/volume)Ordered By: Jacquie Coleman on 01-11-2025 TSH Qn 2.860 uIU/mL 0.358-3.740 [facility] Serum or plasma urea nitroge n measurement (mass/volume)Ordered By: Jacquie Coleman on 01-11-2025 Urea nitrogen [Mass/Vol] 13 mg/dL - [facility] Sodium levelOrdered By: Atiya Coleman on 01-11-2025 Sodium [Moles/Vol] 136 mmol/L 136-145 [facility] T4 Free Directon 01-11-2025 T4 FREE DIRECT 0.92 ng/dL Normal 0.76-1.46 [facility] Comment on above: Performed By: #### L 501.4021, L500.2500, L100.0100 #### [facility] [place], [address] TSH QnOrdered By: Jacquie Morton jeferson on 01-11-2025 Thyroid Stimulating Hormone (TSH) 2.860 uIU/mL 0.358-3.740 [facility] Thyroid Stim Hormone (TSH)on 01-11-2025 TSH 2.860 uIU/mL Normal 0.358-3.740 [facility] Comment on above: Performed By: #### L 501.4021, L500.2500, L100.0100 #### [facility] [address] [place], [place], [id number] Absolute neutrophil countOrd ered By: [facility] Kian on 12-31-2024 Neutrophils (Bld) [#/Vol] 3.6 10*3/uL 2.0-7.7 [facility] Albumin to globulin ratioOrd ered By: Edda Langston on 12-31-2024 Albumin/Globulin [Mass ratio] 0.8 {ratio} Low 0.9-2.4 [facility] Basophil percentageOrdered B y: Edda Langston on 12-31-2024 Basophils/100 WBC (Bld) 0.8 % 0-1 [facility] Bilirubin, totalOrdered By: Edda Kian on 12-31-2024 Bilirubin [Mass/Vol] 0.30 mg/dL 0.20-1.00 [facility] Comment on above: For patients on eltr ombopag therapy, use of Dimension [place] TBIL is not recommended. Blood urea nitrogen (BUN)/cr eatinine ratioOrdered By: Edda Langston on 12-31-2024 Urea nitrogen/Creatinine [Mass ratio] 16.7 mg/mg 10-20 [facility] CBC W/Diff, Automatedon Erythrocyte distribution width (RBC) [Ratio] 13.7 % Normal 11.6-14.6 [facility] Comment on above: Performed By: #### L 501.5425, L100.0100, L500.2500 #### [facility] [address] [place], [place], [id number] Platelet mean volume (Bld) [Entitic vol] 10.3 fL Normal 6.2-12.0 [facility] Comment on above: Performed By: #### L 501.5425, L100.0100, L500.2500 #### [facility] [address] [place], [address] Carbon dioxide measurementOr dered By: Edda Langston on 12-31-2024 CO2 [Moles/Vol] 26.0 mmol/L 21.0-32.0 [facility] Chloride measurementOrdered By: Edda Langston on 12-31-2024 Chloride [Moles/Vol] 108 mmol/L High 98-107 [facility] Comprehensive Metabolic Prof ilon 12-31-2024 Albumin [Mass/Vol] 3.3 g/dL Normal 3.2-5.0 [facility] Comment on above: Performed By: #### L 501.5425, L100.0100, L500.2500 #### [facility] [address] [place], [address] Albumin/Globulin [Mass ratio] 0.8 {ratio} Low 0.9-2.4 [facility] Comment on above: Performed By: #### L 501.5425, L100.0100, L500.2500 #### [facility] [address] [place], [address] ALK P 74 U/L Normal 45-117 [facility] Comment on above: Performed By: #### L 501.5425, L100.0100, L500.2500 #### [facility] [address] [place], [address] ALT [Catalytic activity/Vol] 26 U/L Normal 13-56 [facility] Comment on above: Performed By: #### L 501.5425, L100.0100, L500.2500 #### [facility] [address] [place], [address] AST [Catalytic activity/Vol] 19 U/L Normal 15-37 [facility] Comment on above: Performed By: #### L 501.5425, L100.0100, L500.2500 #### [facility] [address] [place], [address] Bilirubin [Mass/Vol] 0.30 mg/dL Normal 0.20-1.00 [facility] Comment on above: Result Comment: For patients on eltrombopag therapy, use of Dimension [place] TBIL is not recommended. Performed By: #### L 501.5425, L100.0100, L500.2500 #### [facility] [address] [place], [address] BUN/CRE 16.7 RATIO Normal 10-20 [facility] Comment on above: Performed By: #### L 501.5425, L100.0100, L500.2500 #### [facility] [address] [place], [address] CA,Total 8.8 mg/dL Normal 8.5-10.1 [facility] Comment on above: Performed By: #### L 501.5425, L100.0100, L500.2500 #### [facility] [address] [place], [address] Chloride [Moles/Vol] 108 mmol/L High 98-107 [facility] Comment on above: Performed By: #### L 501.5425, L100.0100, L500.2500 #### [facility] [address] [place], [address] CO2 [Moles/Vol] 26.0 mmol/L Normal 21.0-32.0 [facility] Comment on above: Performed By: #### L 501.5425, L100.0100, L500.2500 #### [facility] [address] [place], [address] Creatinine [Mass/Vol] 0.78 mg/dL Normal 0.55-1.02 [facility] Comment on above: Result Comment: The validity of the calculated GFR GFRAA in patients over 70 years has not been determined. Clinical correlation is essential. Performed By: #### L 501.5425, L100.0100, L500.2500 #### [facility] [address] [place], [address] ECRCL 50.66 ml/min Normal [facility] Comment on above: Performed By: #### L 501.5425, L100.0100, L500.2500 #### [facility] [address] [place], [address] EST GFR - AA 91 mL/min Normal >60 [facility] Comment on above: Result Comment: Afri can Malaysian GFR Calc Performed By: #### L 501.5425, L100.0100, L500.2500 #### [facility] [address] [place], [address] GAP 6 Normal 5-15 [facility] Comment on above: Performed By: #### L 501.5425, L100.0100, L500.2500 #### [facility] [address] [place], [address] GFR/1.73 sq M.predicted among non-blacks MDRD (S/P/Bld) [Vol rate/Area] 75 mL/min/{1.73_m2} Normal >60 [facility] Comment on above: Result Comment: Non- GFR Calc Performed By: #### L 501.5425, L100.0100, L500.2500 #### [facility] [address] [place], [address] Globulin (S) [Mass/Vol] 4.0 g/dL Normal 2.2-4.2 [facility] Comment on above: Performed By: #### L 501.5425, L100.0100, L500.2500 #### [facility] [address] [place], [address] Glucose [Mass/Vol] 106 mg/dL Normal 74-106 [facility] Comment on above: Result Comment: Fast ing Glucose result from 100 to 125 mg/dL suggests IMPAIRED HOMEOSTASIS per A.D.A. criteria. Performed By: #### L 501.5425, L100.0100, L500.2500 #### [facility] [address] [place], [address] Potassium [Moles/Vol] 3.7 mmol/L Normal 3.5-5.1 [facility] Comment on above: Performed By: #### L 501.5425, L100.0100, L500.2500 #### [facility] [address] [place], [address] Sodium [Moles/Vol] 139 mmol/L Normal 136-145 [facility] Comment on above: Performed By: #### L 501.5425, L100.0100, L500.2500 #### [facility] [address] [place], [address] T PROT 7.3 g/dL Normal 6.4-8.2 [facility] Comment on above: Performed By: #### L 501.5425, L100.0100, L500.2500 #### [facility] [address] [place], [address] Urea nitrogen [Mass/Vol] 13 mg/dL Normal 7-18 [facility] Comment on above: Performed By: #### L 501.5425, L100.0100, L500.2500 #### [facility] [address] [place], [address] Discharge Instructionon Discharge Instruction [facility] Medical Records Department [address] [place] [address] Instructions for Home/Discharge Instructions 12/31/24 1723 MR#: [id number] Acct: [id number] Name: AL LEWIS Rep #: [id number] : 1940 84 From: Elisabet Fishman MD PCP: Dr. Jaqcuie Coleman MD Status:ADM KARLA Discharge Instructions Diet Discharge Diet: Low fat / Low cholesterol DC O2, CPAP, BIPAP needs Home O2 Discharge instructions: No Dressing / Incision Discharge Activity: Return to Normal Activity Weight Bearing Status: Weight bearing as tolerated Dressing / Incision Call your doctor if you observe: Fever of 101 or Higher, Shortness of breath, Dizziness, Swelling in the ankles and Chest pain Follow Up Care Test Results: Test results from this visit will be discussed in further detail at your follow-up appointment, if applicable. Discharge Plan Admission Admit Date/Time: 12/30/24 23:21 Primary Reason for Your Visit: new onset afib Attending Provider: Elisabet Fishman Primary Care Provider: Jacquie Coleman Consulting Providers: Edda Langston; Robert Kingsley Instructions Patient Instructions: AFib Dc, AFib Preventing Stroke Discharge Orders/Prescriptions Prescriptions: New diltiazem HCl 120 mg Capsule,Extended Release 24hr 120 mg PO BID Qty: 60 2RF Eliquis 5 mg Tablet 5 mg PO BID Qty: 60 2RF Continued simvastatin 10 MG tablet 10 mg PO QHS pantoprazole [Protonix] 40 mg tablet,delayed release (DR/EC) 40 mg PO DAILY sennosides [Senokot] 8.6 mg tablet 8.6 mg PO DAILY Discontinued amlodipine 10 MG tablet 10 mg PO DAILY aspirin 81 MG tablet,chewable 81 mg PO DAILY bisoprolol-hydrochloro thiazide 1 EACH tablet 1 tab PO DAILY Patient Comments: pt is currently on the 5-6. Referrals / Follow Up: Jozef Pena MD [Med Staff - Active Staff] - Within 2 Weeks (see to establish care for afib) Jacquie Coleman MD [Primary Care Provider] - Within 1 Week Disposition Disposition (needs filled in before D/C Order can be placed): Home, Self Care 12/31/24 1724 Elisabet Fishman MD CC: Dr. Robert Kingsley DO; Dr. Edda Langston MD; Dr. Jacquie Coleman MD Signed Normal [facility] Echo Completeon 12-31-2024 Echo [facility] [address] [place] [address] Echo Complete 12/31/24 0904 MR#: [id number] Acct: [id number] Name: AL LEWIS Rep #: [id number] : 1940 84 From: Jozef Pena MD Attending Dr: Dr. Elisabet Fishman MD Status: AD M KARLA Ordering Dr: Edda Langston MD Date: 12/31/24 Location: [facility] Sex: F C Admitted: 12/30/24 Reason For Study: ATRIAL FIBRILLATION Procedure This was a 2D Doppler, Color Flow transthoracic echocardiogram. The study was technically difficult. Exam performed portable in patient room. Left Ventricle Normal left ventricle. Left ventricular systolic function is normal. The left ventricular ejection fraction is 70 %. Stage 1 diastolic dysfunction. No regional wall motion abnormalities noted. Right Ventricle Normal RV size. Normal systolic function. Atria The left atrium is mildly enlarged. Normal right atrium. Mitral Valve There is mild to moderate mitral annular calcification. Tricuspid Valve Normal tricuspid valve. Mild (1+) tricuspid valve insufficiency. Pulmonary artery systolic pressure is 30 mmHg. Aortic Valve Trisinus/trileaflet aortic valve. Mild focal aortic valve calcification. Pulmonic Valve Normal pulmonic valve. Great Vessels Calcified aortic root. The pulmonary artery is normal size. Inferior vena cava collapse with respiration. Pericardium/Pleural No pericardial effusion. MMode/2D Measurements Calculations LVIDd: 4.4 cm IVSd: 1.1 cm LVOT diam: 1.9 cm LVIDs: 2.2 cm LVPWd: 1.0 cm LVOT area: 2.9 cm2 RVDd: 3.8 cm FS: 51.1 % asc Aorta Diam: 2.8 cm LAV(MOD-bp): 63.6 ml LVAd ap4: 11.1 cm2 LAV(MOD-bp) Indexed: 35.5 ml/m2 LVLd ap4: 5.0 cm LAV(MOD-sp2): 56.9 ml EDV(MOD-sp4): 21.6 ml LAV(MOD-sp4): 68.3 ml EDV(sp4-el): 20.9 ml LVAs ap4: 5.3 cm2 LVLs ap4: 3.9 cm ESV(MOD-sp4): 5.9 ml ESV(sp4-el): 6.1 ml EF(MOD-sp4): 72.5 % EF(sp4-el): 71.0 % LVAd ap2: 10.5 cm2 SV(MOD-sp4): 15.7 ml SV(MOD-sp2): 13.6 ml LVLd ap2: 5.0 cm SI(MOD-sp4): 8.7 ml/m2 SI(MOD-sp2): 7.6 ml/m2 EDV(MOD-sp2): 19.2 ml EDV(sp2-el): 18.7 ml LVAs ap2: 5.4 cm2 LVLs ap2: 4.5 cm ESV(MOD-sp2): 5.6 ml ESV(sp2-el): 5.6 ml EF(MOD-sp2): 70.7 % SV(sp4-el): 14.8 ml Ao sinus diam: 3.[address] Junction: 2.3 cm LA dimension(2D): 3.9 cm LA A4 area: 22.5 cm2 RA A4 area: 13.2 cm2 TAPSE: 1.7 cm Time Measurements MV dec time: 0.29 sec Doppler Measurements Calculations MV E max maya: 97.7 cm/sec Lat Peak E' Maya: 8.4 cm/sec Med Peak E' Maya: 6.6 cm/sec MV A max maya: 113.4 cm/sec E/E' lat: 11.7 E/E' med: 14.8 MV E/A: 0.86 MV V2 max: 127.0 cm/sec MV dec slope: 334.2 cm/sec2 Ao V2 max: 135.3 cm/sec MV max P.4 mmHg Ao max P.3 mmHg MV V2 mean: 81.0 cm/sec Ao V2 mean: 91.0 cm/sec MV mean P.9 mmHg Ao mean P.7 mmHg MV V2 VTI: 34.9 cm Ao V2 VTI: 29.1 cm MVA(VTI): 2.6 cm2 AV (velocity ratio): 1.1 CHENCHO(I,D): 3.1 cm2 CHENCHO(V,D): 2.9 cm2 LV V1 max: 133.1 cm/sec SV(LVOT): 90.3 ml PA V2 max: 72.0 cm/sec LV V1 max P.1 mmHg LV V1 mean P.9 mmHg LV V1 mean: 93.6 cm/sec LV V1 VTI: 30.7 cm TR max maya: 250.6 cm/sec TR max P.1 mmHg ECHO/Echo Complete Interpretation Summary Normal left ventricle. Left ventricular systolic function is normal. The left ventricular ejection fraction is 70 %. The left atrium is mildly enlarged. Stage 1 diastolic dysfunction. There is mild to moderate mitral annular calcification. Pulmonary artery systolic pressure is 30 mmHg. Ordering Physician: Edda Langston Referring Physician: Dwight Patricia Performed By: Jessi Trejo [facility] 12/31/241636 Date Jozef Pena MD CC: Dr. Dwight Patricia DO; Dr. Edda Langston MD; Dr. Jacquie Coleman MD; Dr. Elisabet Fishman MD Date Dictated: 12/31/2404 Date Transcribed: 12/31/241636 Cartridge Feeder: Nadia [facility] Eosinophil percentageOrdered By: Edda Langston on 12-31-2024 Eosinophils/100 WBC (Bld) 2.0 % 0-5 [facility] Erythrocyte distribution wid th (RBC) [Ratio]Ordered By: Edda Langston on 12-31-2024 Erythrocyte distribution width (RBC) [Entitic vol] 44.9 fL High 35.1-43.9 [facility] Erythrocyte distribution wid th ratioOrdered By: Edda Langston on 12-31-2024 Erythrocyte distribution width (RBC) [Ratio] 13.7 % 11.6-14.6 [facility] Estimated glomerular filtrat ion rate (GFR) AmericanOrdered By: Edda Langston on 12-31-2024 Estimated GFR (MDRD) Amer 91 mL/min >60 [facility] Comment on above: GFR Calc Estimation of creatinine jenniffer aranceOrdered By: Edda Langston on 12-31-2024 Estimated Creatinine Clearance Calc 50.66 ml/min [facility] Glomerular filtration rate ( GFR) estimationOrdered By: Edda Langston on 12-31-2024 Estimated GFR (MDRD) Non-Af Amer 75 mL/min >60 [facility] Comment on above: Non- GFR Calc Glucose measurementOrdered B y: Edad Langston on 12-31-2024 Glucose [Mass/Vol] 106 mg/dL 74-106 [facility] Comment on above: Fasting Glucose resu lt from 100 to 125 mg/dL suggests IMPAIRED HOMEOSTASIS per A.D.A. criteria. Hematocrit Auto (Bld) [Volum e fraction]Ordered By: Edda Langston on 12-31-2024 Hematocrit (Bld) [Volume fraction] 39.8 % 37-47 [facility] Hemoglobin measurementOrdere d By: Edda Langston on 12-31-2024 Hemoglobin (Bld) [Mass/Vol] 13.3 g/dL 12.0-15.0 [facility] Immature granulocytes/100 WB C Auto (Bld)Ordered By: Edda Langston on 12-31-2024 Immature granulocytes/100 WBC (Bld) 0.300 % 0.0-0.9 [facility] Comment on above: IG% - Immature Granu locytes (promyelocytes, myelocytes and metamyelocytes) > 1% indicates that a LEFT SHIFT is Present. L501.4020on 12-31-2024 TROPONIN-I HS 31 pg/mL Normal 3.0-54.0 [facility] Comment on above: Order Comment: 'TROP ' Serial specimen #1, #2 or #3: 3 Result Comment: Edy smith Note: New Test Units and Gender Specific Reference Ranges. For more information see Policy Stat Procedure [place] High Sensitivity Troponin (TNIH) and attachments. Performed By: #### L 501.4021, L500.2500, L100.0100 #### [facility] [address] [place], [address] Laboratory - Chemistry and C hemistry - challengeOrdered By: Edda Kian on 12-31-2024 AST [Catalytic activity/Vol] 19 U/L 15-37 [facility] Lymphocytes Auto (Unsp spec) [#/Vol]Ordered By: Edda Kian on 12-31-2024 Lymphocytes (Bld) [#/Vol] 2.07 10*3/uL 0.83-4.51 [facility] Lymphocytes/100 WBC Auto (Un sp spec)Ordered By: Edda Kian on 12-31-2024 Lymphocytes/100 WBC (Bld) 32.1 % 19-41 [facility] M100.019on 12-31-2024 M100.019 Negative Normal [facility] Comment on above: Performed By: #### L 501.4021, L500.2500, L100.0100 #### [facility] [address] [place], [place], [address] MCV (mean corpuscular volume ) determinationOrdered By: Edda Langston on 12-31-2024 MCV (RBC) [Entitic vol] 89.6 fL 81-99 [facility] Mean corpuscular hemoglobin (MCH) determinationOrdered By: Edda Kian on 12-31-2024 MCH (RBC) [Entitic mass] 30.0 pg 27.0-32.0 [facility] Mean corpuscular hemoglobin concentration (MCHC) determinationOrdered By: Edda Langston on 12-31-2024 MCHC (RBC) [Mass/Vol] 33.4 g/dL 32-36 [facility] Mean platelet volume determi nationOrdered By: Edda Langston on 12-31-2024 Platelet mean volume (Bld) [Entitic vol] 10.3 fL 6.2-12.0 [facility] Monocyte percentageOrdered B y: on 12-31-2024 Monocytes/100 WBC (Bld) 8.2 % 0-10 [facility] Neutrophil percentageOrdered By: [facility] White on 12-31-2024 Neutrophils/100 WBC (Bld) 56.6 % 47-70 [facility] Nucleated red blood cell per centageOrdered By: Edda White on 12-31-2024 Nucleated RBC/100 WBC (Bld) [Ratio] 0 % 0-5 [facility] Platelet countOrdered By: Ania yi Kian on 12-31-2024 Platelets (Bld) [#/Vol] 214 10*3/uL 150-450 [facility] Potassium measurementOrdered By: [facility] Kian on 12-31-2024 Potassium [Moles/Vol] 3.7 mmol/L 3.5-5.1 [facility] Procalcitoninon 12-31-2024 Procalcitonin 0.05 ng/mL Normal 0.00-0.09 [facility] Comment on above: Result Comment: A procalcitonin (PCT) level above 2.0 ng/mL on the first day of ICU admission is associated with a high risk for progression to severe sepsis and/or septic shock. A PCT level below 0.5 ng/mL on the first day of ICU admission is associated with a low risk for progression to severe and/or septic shock. Note: Concentrations <0.5 ng/mL do not exclude an infection on account of localized infections (without systemic signs) which can be associated with such low concentrations, or a systemic infection in its initial stages (<6 hours). Furthermore, increased procalcitonin can occur without infection. PCT concentrations between 0.5 and 2.0 ng/mL should be interpreted taking into account the patient's history. It is recommended to retest PCT within 6-24 hours if any concentrations <2 ng/mL are obtained. Performed By: #### L 501.5496, L100.0100, L500.2500 #### [facility] [address] [place], [place], [address] Procalcitonin [Mass/Vol]Orde red By: Edda Langston on 12-31-2024 Procalcitonin 0.05 ng/mL 0.00-0.09 [facility] Comment on above: A procalcitonin (PCT ) level above 2.0 ng/mL on the first day of ICU admission is associated with a high risk for progression to severe sepsis and/or septic shock. A PCT level below 0.5 ng/mL on the first day of ICU admission is associated with a low risk for progression to severe and/or septic shock. Note: Concentrations <0.5 ng/mL do not exclude an infection on account of localized infections (without systemic signs) which can be associated with such low concentrations, or a systemic infection in its initial stages (<6 hours). Furthermore, increased procalcitonin can occur without infection. PCT concentrations between 0.5 and 2.0 ng/mL should be interpreted taking into account the patient's history. It is recommended to retest PCT within 6-24 hours if any concentrations <2 ng/mL are obtained. RBC Auto (Bld) [#/Vol]Ordere d By: Edda Langston on 12-31-2024 RBC (Bld) [#/Vol] 4.44 10*6/uL 4.2-5.4 [facility] RESPIRATORY PANEL MOLECULARo n 12-31-2024 RP PANEL ADENOVIRUS Not Detected INFLUENZA A Not Detected INFLUENZA A (SUBTYPE H1) Not Detected INFLUENZA A (SUBTYPE H3) Not Detected INFLUENZA B Not Detected HUMAN METAPHNEUMO Not Detected PARAINFLUENZA 1 Not Detected PARAINFLUENZA 2 Not Detected PARAINFLUENZA 3 Not Detected PARAINFLUENZA 4 Not Detected RHINOVIRUS Not Detected RSV A Not Detected RSV B Not Detected Normal [facility] Comment on above: Performed By: #### L 501.5491, L100.0100, L500.2500 #### [facility] [address] [place], [place], [id number] Serum anion gap measurementO rdered By: Edda Langston on 12-31-2024 Anion gap [Moles/Vol] 6 mmol/L 5-15 [facility] Serum globulin measurementOr dered By: Edda Langston 12-31-2024 Globulin (S) [Mass/Vol] 4.0 g/dL 2.2-4.2 [facility] Serum or plasma alanine leal otransferase (ALT) measurementOrdered By: Edda Langston on 12-31-2024 ALT [Catalytic activity/Vol] 26 U/L 13-56 [facility] Serum or plasma albumin balaji urement (mass/volume)Ordered By: Edda Langston on 12-31-2024 Albumin [Mass/Vol] 3.3 g/dL 3.2-5.0 [facility] Serum or plasma alkaline maico sphatase measurementOrdered By: Edda Langston on 12-31-2024 ALP [Catalytic activity/Vol] 74 U/L 45-117 [facility] Serum or plasma calcium balaji urement (mass/volume)Ordered By: Edda Langston on 12-31-2024 Calcium [Mass/Vol] 8.8 mg/dL 8.5-10.1 [facility] Serum or plasma creatinine m easurement (mass/volume)Ordered By: Edda Langston on 12-31-2024 Creatinine [Mass/Vol] 0.78 mg/dL 0.55-1.02 [facility] Comment on above: The validity of the calculated GFR & GFRAA in patients over 70 years has not been determined. Clinical correlation is essential. Serum or plasma urea nitroge n measurement (mass/volume)Ordered By: Edda Langston on 12-31-2024 Urea nitrogen [Mass/Vol] 13 mg/dL 7-18 [facility] Sodium levelOrdered By: Alyu mn Kian on 12-31-2024 Sodium [Moles/Vol] 139 mmol/L 136-145 [facility] Total proteinOrdered By: Aly umn Kian on 12-31-2024 Protein [Mass/Vol] 7.3 g/dL 6.4-8.2 [facility] Troponin IOrdered By: Edda Langston on 12-31-2024 Troponin I High Sensitivity 31 pg/mL 3.0-54.0 [facility] Comment on above: Please Note: New [place] t Units and Gender Specific Reference Ranges. For more information see Policy Stat Procedure [place] High Sensitivity Troponin (TNIH) and attachments. White blood cell (WBC) count Ordered By: Edda Langston on 12-31-2024 WBC (Bld) [#/Vol] 6.4 10*3/uL 4.4-11.0 [facility] 12 Lead EKGon 12-30-2024 12 Lead EKG [facility] Cardiovascular Services [address] [place] [address] 12 Lead EKG 12/30/24 2303 MR#: [id number] Acct: [id number] Name: AL LEWIS ANN Rep #: [id number] : 1940 84 From: Jozef Pena MD Attending Dr: Dr. Elisabet Fishman MD Status: SHE ACOSTA Ordering Dr: Dwight Patricia DO Date: 5 Location: [facility] Sex: F C Admitted: 12/30/24 Test Reason : repeat ekg Blood Pressure : */* mmHG Vent. Rate : 55 BPM Atrial Rate : 55 BPM P-R Int : 164 ms QRS Dur : 110 ms QT Int : 442 ms P-R-T Axes : 56 -35 41 degrees QTcB Int : 422 ms Sinus bradycardia Left axis deviation Minimal voltage criteria for LVH, may be normal variant ( Riki product ) Abnormal ECG Confirmed by JEAN CAN, JOZEF ([id number]), field map editor KEYSHA RICCI ([id number]) on 01/01/2025 8:06:11 AM Referred By: Dwight Patricia Confirmed By: JOZEF PENA MD 01/01/25 0806 Date Jozef Pena MD CC: Dr. Dwight Patricia DO; Dr. Jacquie Coleman MD; Dr. Elisabet Fishman MD Signed [facility] 12 Lead EKG [facility] Cardi[facility] Services [address] [place] [address] 12 Lead EKG 12/30/242024 MR#: [id number] Acct: [id number] Name: AL LEWIS ANN Rep #: [id number] : 1940 84 From: Jozef Pena MD Attending Dr: Dr. Elisabet Fishman MD Status: SHE Wooten KARLA Ordering Dr: Dwight Patricia DO Date: 5 Location: [facility] Sex: F C Admitted: 12/30/24 Test Reason : HEART PALP Blood Pressure : */* mmHG Vent. Rate : 150 BPM Atrial Rate : * BPM P-R Int : * ms QRS Dur : 100 ms QT Int : 306 ms P-R-T Axes : * -40 120 degrees QTcB Int : 483 ms Atrial fibrillation with rapid ventricular response Left axis deviation Possible Anterior infarct , age undetermined ST T wave abnormality, consider lateral ischemia Abnormal ECG Confirmed by JEAN CAN, JOZEF ([id number]), field map editor KEYSHA RICCI ([id number]) on 01/01/2025 8:06:02 AM Referred By: Dwight Patricia Confirmed By: JOZEF PENA MD 01/01/25 0806 Date Jozef Pena MD CC: Dr. Dwight Patricia DO; Dr. Jacquie Coleman MD; Dr. Elisabet Fishman MD Signed Normal [facility] BNP (brain natriuretic pepti de measurement)Ordered By: Dwight Patricia on 12-30-2024 Natriuretic peptide B (Bld) [Mass/Vol] 379.8 pg/mL High 0-100 [facility] BNP,B-Type NATRIURETIC PEPTI Kaylah 12-30-2024 Natriuretic peptide B (Bld) [Mass/Vol] 379.8 pg/mL High 0-100 [facility] Comment on above: Performed By: #### L 501.4021, L500.2500, L100.0100 #### [facility] [address] [place], [address] Basic Metabolic Profile (BMP )on 12-30-2024 BUN/CRE 14.4 RATIO Normal 10-20 [facility] Comment on above: Performed By: #### L 501.5425, L100.0100, L500.2500 #### [facility] [address] [place], [address] CA,Total 9.5 mg/dL Normal 8.5-10.1 [facility] Comment on above: Performed By: #### L 501.5425, L100.0100, L500.2500 #### [facility] [address] [place], [address] Chloride [Moles/Vol] 106 mmol/L Normal 98-107 [facility] Comment on above: Performed By: #### L 501.5425, L100.0100, L500.2500 #### [facility] [address] [place], [address] CO2 [Moles/Vol] 24.0 mmol/L Normal 21.0-32.0 [facility] Comment on above: Performed By: #### L 501.5425, L100.0100, L500.2500 #### [facility] [address] [place], [address] Creatinine [Mass/Vol] 0.97 mg/dL Normal 0.55-1.02 [facility] Comment on above: Result Comment: The validity of the calculated GFR GFRAA in patients over 70 years has not been determined. Clinical correlation is essential. Performed By: #### L 501.5425, L100.0100, L500.2500 #### [facility] [address] [place], [address] ECRCL 42.31 ml/min Normal [facility] Comment on above: Performed By: #### L 501.5425, L100.0100, L500.2500 #### [facility] [address] [place], [address] EST GFR - AA 70 mL/min Normal >60 [facility] Comment on above: Result Comment: Afri can Malaysian GFR Calc Performed By: #### L 501.5425, L100.0100, L500.2500 #### [facility] [address] [place], [address] GAP 8 Normal 5-15 [facility] Comment on above: Performed By: #### L 501.5425, L100.0100, L500.2500 #### [facility] [address] [place], [address] GFR/1.73 sq M.predicted among non-blacks MDRD (S/P/Bld) [Vol rate/Area] 58 mL/min/{1.73_m2} Low >60 [facility] Comment on above: Result Comment: Non- GFR Calc Performed By: #### L 501.5425, L100.0100, L500.2500 #### [facility] [address] [place], [address] Glucose [Mass/Vol] 143 mg/dL High 74-106 [facility] Comment on above: Result Comment: Fast ing Glucose result greater than or equal to 126 mg/dL suggests DIABETES MELLITUS per A.D.A. criteria. Performed By: #### L 501.5425, L100.0100, L500.2500 #### [facility] [address] [place], [address] Potassium [Moles/Vol] 4.6 mmol/L Normal 3.5-5.1 [facility] Comment on above: Result Comment: Mode rate Hemolysis, Result may be falsely increased. Performed By: #### L 501.5425, L100.0100, L500.2500 #### [facility] [address] [place], [address] Sodium [Moles/Vol] 138 mmol/L Normal 136-145 [facility] Comment on above: Performed By: #### L 501.5425, L100.0100, L500.2500 #### [facility] [address] [place], [address] Urea nitrogen [Mass/Vol] 14 mg/dL Normal 7-18 [facility] Comment on above: Performed By: #### L 501.5425, L100.0100, L500.2500 #### [facility] [address] [place], [address] CBC W/Diff, Automatedon 02-0 6-2025 Absolute Lymph 3.92 X10 3/uL Normal 0.83-4.51 [facility] Comment on above: Performed By: #### L 501.5425, L100.0100, L500.2500 #### [facility] [address] [place], [address] Absolute Neut 3.8 X10 3/uL Normal 2.0-7.7 [facility] Comment on above: Performed By: #### L 501.5425, L100.0100, L500.2500 #### [facility] [address] [place], [address] Basophils/100 WBC (Bld) 0.7 % Normal 0-1 [facility] Comment on above: Performed By: #### L 501.5425, L100.0100, L500.2500 #### [facility] [address] [place], [address] Eosinophils/100 WBC (Bld) 2.1 % Normal 0-5 [facility] Comment on above: Performed By: #### L 501.5425, L100.0100, L500.2500 #### [facility] [address] [place], [address] Erythrocyte distribution width (RBC) [Ratio] 13.7 % Normal 11.6-14.6 [facility] Comment on above: Performed By: #### L 501.5425, L100.0100, L500.2500 #### [facility] [address] [place], [address] Hematocrit (Bld) [Volume fraction] 44.2 % Normal 37-47 [facility] Comment on above: Performed By: #### L 501.5425, L100.0100, L500.2500 #### [facility] [address] [place], [address] Hemoglobin (Bld) [Mass/Vol] 14.8 g/dL Normal 12.0-15.0 [facility] Comment on above: Performed By: #### L 501.5425, L100.0100, L500.2500 #### [facility] [address] [place], [address] IG% 0.200 Normal 0.0-0.9 [facility] Comment on above: Result Comment: IG% - Immature Granulocytes (promyelocytes, myelocytes and metamyelocytes) > 1% indicates that a LEFT SHIFT is Present. Performed By: #### L 501.5425, L100.0100, L500.2500 #### [facility] [address] [place], [address] Lymphocytes/100 WBC (Bld) 45.2 % High 19-41 [facility] Comment on above: Performed By: #### L 501.5425, L100.0100, L500.2500 #### [facility] [address] [place], [address] MCH (RBC) [Entitic mass] 30.0 pg Normal 27.0-32.0 [facility] Comment on above: Performed By: #### L 501.5425, L100.0100, L500.2500 #### [facility] [address] [place], [address] MCHC (RBC) [Mass/Vol] 33.5 g/dL Normal 32-36 [facility] Comment on above: Performed By: #### L 501.5425, L100.0100, L500.2500 #### [facility] [address] [place], [address] MCV (RBC) [Entitic vol] 89.5 fL Normal 81-99 [facility] Comment on above: Performed By: #### L 501.5425, L100.0100, L500.2500 #### [facility] [address] [place], [address] Monocytes/100 WBC (Bld) 7.8 % Normal 0-10 [facility] Comment on above: Performed By: #### L 501.5425, L100.0100, L500.2500 #### [facility] [address] [place], [address] Neutrophils/100 WBC (Bld) 44.0 % Low 47-70 [facility] Comment on above: Performed By: #### L 501.5425, L100.0100, L500.2500 #### [facility] [address] [place], [address] Nucleated RBC (Bld) [#/Vol] 0 10*3/uL Normal 0-5 [facility] Comment on above: Performed By: #### L 501.5425, L100.0100, L500.2500 #### [facility] [address] [place], [address] Platelet mean volume (Bld) [Entitic vol] 10.3 fL Normal 6.2-12.0 [facility] Comment on above: Performed By: #### L 501.5425, L100.0100, L500.2500 #### [facility] [address] [place], [address] Platelets (Bld) [#/Vol] 241 10*3/uL Normal 150-450 [facility] Comment on above: Performed By: #### L 501.5425, L100.0100, L500.2500 #### [facility] [address] [place], [address] RBC (Bld) [#/Vol] 4.94 10*6/uL Normal 4.2-5.4 [facility] Comment on above: Performed By: #### L 501.5425, L100.0100, L500.2500 #### [facility] [address] [place], [address] RDW SD 44.7 fl High 35.1-43.9 [facility] Comment on above: Performed By: #### L 501.5425, L100.0100, L500.2500 #### [facility] [address] [place], [address] WBC (Bld) [#/Vol] 8.7 10*3/uL Normal 4.4-11.0 [facility] Comment on above: Performed By: #### L 501.5425, L100.0100, L500.2500 #### [facility] [address] [place], [address] CTA Chest W/WO Contraston CTA Chest W/WO Contrast [facility] Imaging Services [address] [place] [address] CTA Chest W/WO Contrast MR#: [id number] Acct: [id number] Name: AL LEWIS Rep #: [id number] : 1940 F 84 From: Ad Child MD PCP: Dr. Jacquie Coleman MD Status: [facility] ER Study: CTA Chest W/WO Contrast Date of Exam: 12/30/24 Exam# [id number] Ordering Dr: Dwight Patricia DO PROCEDURE: CTA CHEST W/WO CONTRAST REASON FOR EXAM: Tachycardia. TECHNIQUE: CTA imaging of the chest with intravenous contrast. 3D reconstructions. COMPARISON: None. FINDINGS: Hardware: None. Lymph nodes: Enlarged mediastinal lymph nodes. For instance, a right paratracheal lymph node measures 1.2 cm. Heart: Normal heart size. No pericardial effusion. RV/LV Diameter Ratio: N/A Thoracic Aorta: No thoracic aortic aneurysm or dissection. Pulmonary Vessels: No evidence of acute pulmonary emboli through the major subsegmental branches. Most Proximal Level of Embolus (if embolus present): N/A Lungs and Airways: Diffuse ground-glass opacities throughout the lungs which may represent edema or infection. Pleura: No pleural effusion. No pneumothorax. Upper Abdomen: Right kidney upper pole simple cysts. Bones: Degenerative changes of the spine. CT/CTA Chest W/WO Contrast IMPRESSION: No pulmonary embolism. Diffuse ground-glass opacities which may represent edema or infection. Enlarged mediastinal lymph nodes. One or more dose reduction techniques were used (e.g., Automated exposure control, adjustment of the mA and/or kV according to patient size, use of iterative reconstruction technique). Reading Location: [facility] CC: Dr. Dwight Patricia DO; Dr. Jacquie Coleman MD Cartridge Feeder: Signed Normal [facility] Chest 1 View (Portable)on Chest 1 View (Portable) [facility] Imaging Services [address] [place] [address] Chest 1 View (Portable) MR#: [id number] Acct: [id number] Name: AL LEWIS Rep #: [id number] : 1940 F 84 From: Ad Child MD PCP: Dr. Jacquie Coleman MD Status: REG ER Study: Chest 1 View (Portable) Date of Exam: 12/30/24 Exam# [id number] Ordering Dr: Dwight Patricia DO PROCEDURE: CHEST 1 VIEW (PORTABLE) REASON FOR EXAM: Chest pain. TECHNIQUE: Frontal view of the chest. COMPARISON: None. FINDINGS: The cardiac and mediastinal contours are normal. The lungs are clear. RAD/Chest 1 View (Portable) IMPRESSION: NEGATIVE SINGLE VIEW OF THE CHEST. Reading Location: [facility] CC: Dr. Dwight Patricia DO; Dr. Jacquie Coleman MD Cartridge Feeder: Signed Normal [facility] D-Dimer Quantitative (DVT/PE )on 12-30-2024 D-DIMER QUANT 0.96 FEU/ug/m Invalid Interpretation Code 0.27-0.49 [facility] Comment on above: Result Comment: D-Di cristóbal ELEVATED (>0.49): Additional studies and clinical assessments are indicated to conclude diagnosis of: Deep Vein Thrombosis (DVT) or Pulmonary Embolism (PE) CRITICAL VALUE CALLED TO [facility] 12/30/24 [facility] [place]. RESULTS READ BACK BY SAME. Performed By: #### L 501.4021, L500.2500, L100.0100 #### [facility] [address] [place], [place], [address] D-dimer measurement for deep venous thrombosisOrdered By: Dwight Patricia on 12-30-2024 D-Dimer Quantitative (PE/DVT) 0.96 FEU/ug/m High 0.27-0.49 [facility] Comment on above: D-Dimer ELEVATED (>0 .49): Additional studies and clinicalassessments are indicated to conclude diagnosis of:Deep Vein Thrombosis (DVT) or Pulmonary Embolism (PE)CRITICAL VALUE CALLED TO [id number]/06/25 [facility] [place] [place].RESULTS READ BACK BY SAME. Direct serum free thyroxine (FT4) measurementOrdered By: Dwight Patricia on 12-30-2024 Free T4 [Mass/Vol] 0.85 ng/dL 0.76-1.46 [facility] Emergency Department Summary on 12-30-2024 Emergency Department Summary [facility] Medical Records Department [address] [place] [address] Emergency Department Summary 12/30/24 MR#: [id number] Acct: [id number] Name: AL LEWIS ANN Rep #: [id number] : 1940 84 From: Dwight Patricia DO PCP: Dr. Jacquie Coleman MD Status:REG ER Location: ED HPI History of Present Illness Chief Complaint: Palpitations Narrative Narrative: Chief complaint and HPI: Palpitations. 84-year-old female with past medical history of HTN and HLD presents for evaluation of palpitations and tachycardia. Patient states this morning she developed a headache in which she thought it was secondary to her new glasses. She states that her headache improved but she did not feel right so she checked her heart rate and it was in the 150s. She denies any history of arrhythmia. She denies any shortness of breath, chest pain, abdominal pain, nausea, vomiting. Review of systems: See HPI Medications: As listed on the chart Allergies: As listed on the chart PFSH: Per chart Vital signs: As listed on the chart. Reviewed. Physical exam: Gen: A O x3, NAD Head: Normocephalic, atraumatic Eyes: No sclera icterus, conjunctiva clear ENT: Moist mucous membranes Neck: Trachea midline, No JVD CV: Tachycardic, irregular rhythm, no murmurs, mild peripheral edema bilaterally Resp: Lungs CTA BL, no w/r/c GI: Abd soft, non-distended, non-tender, no r/r/g Musc: Full ROM, no deformity Skin: Warm, dry Neuro: Alert, oriented, grossly intact, sensation intact Psych: Cooperative, appropriate mood and affect [facility] Medical History (Updated 12/30/24 @ 23:[address] 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 Cataracts, bilateral Home Medications ???Medication ???Instructions ???Recorded ???Last Taken ???Type amlodipine 10 mg tablet 10 mg PO DAILY 06/24/16 01/24/20 H istory aspirin 81 mg chewable tablet 81 mg PO DAILY 06/24/16 01/24/20 H istory simvastatin 10 mg tablet 10 mg PO QHS 06/24/16 01/24/20 His tory bisoprolol 2.5 1 tab PO DAILY heart 01/25/2001/13 History mg-hydrochlorothiazide 6.25 mg tablet pantoprazole 40 mg tablet,delayed 40 mg PO DAILY 12/30/24 Unknown H istory release (Protonix) Allergy/AdvReac Type Severity Reaction Status Date / Time morphine Allergy Anaphylaxis Verified 12/30/24 20:17 niacin Allergy Rash Verified 12/30/24 20:17 procaine HCl (From Novocain) Allergy Anaphylaxis Verified 12/30/24 20:17 tetracycline Allergy Unknown Verified 12/30/24 20:17 Family History Father Cancer Hypertension Respiratory disease Mother Diabetes Epilepsy Heart disease Surgical History History of cataract surgery History of appendectomy History of total hysterectomy Social History household members: none Smoking Status: Never smoker alcohol intake: never substance use type: does not use additional social history: Does Take Aspirin Does Not Take Ibuprofen EXAM Physical Exam Const Vital Signs: 12/30/24 20:14 12/30/24 20:15 12/30/24 20:18 Temperature 97.5 F L Temperature Source Temporal Pulse Rate 85 150 H Respiratory Rate 18 Respiratory Effort Respiratory Pattern Blood Pressure 131/83 H Blood Pressure Mean 99 Pulse Ox 97 94 Oxygen Delivery Method Room Air Room Air 12/30/24 21:31 12/30/24 22:00 12/30/24 22:07 Temperature Temperature Source Pulse Rate 112 H 95 Respiratory Rate 16 14 Respiratory Effort Normal Respiratory Pattern Normal Blood Pressure 98/85 H 124/76 H Blood Pressure Mean 89 92 Pulse Ox 95 95 Oxygen Delivery Method Room Air Room Air MDM MDM MDM Narrative Medical decision making narrative: 84-year-old female with past medical history of HTN and HLD presents for evaluation of palpitations and tachycardia. On presentation, patient is in atrial fibrillation with RVR. Heart rate in the 150s. Patient states she has no history of atrial fibrillation. Her blood pressure is stable. Will bolus with Cardizem and reevaluate. Differential diagnosis includes but is not limited to atrial fibrillation with RVR, electrolyte abnormality, hyperthyroidism, ACS, PE, CHF, anemia. Cardiac workup ordered. CBC without leukocytosis or anemia. Little BMP without significant electrolyte abnormality or DEMETRI. Magnesium level unremarkable. Troponin unremarkable. TSH elevated at 4.410. Will get free T4. Free T4 normal. D-dimer elevated at 0.98 therefore cannot rule out PE. CTA ordere (more content not included)... Normal [facility] Ex[facility] - Hospitalist [facility] Medical Records Department [address] [place] [address] H P Exam - Hospitalist 12/30/24 2307 MR#: [id number] Acct: [id number] Name: AL LEWIS Rep #: [id number] : 1940 84 From: Edda Langston MD PCP: Dr. Jacquie Coleman MD Status:ADM KARLA Location: [place] [address] HPI - General General Date of Admission: 12/30/24 Date of Service: 12/30/24 Chief Complaint: Headache, irregular heart rate, palpitations. HPI Narrative The patient is an 84-year-old female with past medical history obesity, CKD stage III per GFR trending unclear subtype, GERD, hypertension, hyperlipidemia who presents to the [facility] ED on 12/30/2024 with onset on the a.m. on day of presentation mild headache which she felt possibly secondary to her glasses that are new however it improved but she felt off and checked her heart rate noted to be the rate at 150 with sensation of mild palpitations but no associated chest discomfort, dyspnea, lightheadedness given this was persistent eventually prompted ED evaluation to be cautious. 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 In the ED patient ministered 1 L normal saline and diltiazem 10 mg IV bolus x 1. In the ED patient following diltiazem bolus converted with confirmation EKG demonstrating sinus rhythm with no acute evidence of ischemia. 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 Cataracts, bilateral Home Medications ???Medication ???Instructions ???Recorded ???Last Taken ???Type amlodipine 10 mg tablet 10 mg PO DAILY 06/24/16 01/24/20 H istory aspirin 81 mg chewable tablet 81 mg PO DAILY 06/24/16 01/24/20 H istory simvastatin 10 mg tablet 10 mg PO QHS 06/24/16 01/24/20 His tory bisoprolol 2.5 1 tab PO DAILY heart 01/25/2001/13 History mg-hydrochlorothiazide 6.25 mg tablet pantoprazole 40 mg tablet,delayed 40 mg PO DAILY 12/30/24 Unknown H istory release (Protonix) sennosides 8.6 mg tablet (Senokot) 8.6 mg PO DAILY 12/31/24 Unknown History Allergy/AdvReac Type Severity Reaction Status Date / Time morphine Allergy Anaphylaxis Verified 12/30/24 20:17 niacin Allergy Rash Verified 12/30/24 20:17 procaine HCl (From Novocain) Allergy Anaphylaxis Verified 12/30/24 20:17 tetracycline Allergy Unknown Verified 12/30/24 20:17 Family History Father Cancer Hypertension Respiratory disease Mother Diabetes Epilepsy Heart disease Surgical History History of cataract surgery History of appendectomy History of total hysterectomy Social History household members: none Smoking Status: Never smoker alcohol intake: never substance use type: does not use additional social history: Does Take Aspirin Does Not Take Ibuprofen ROS ROS Narrative Admission Review of Systems: CONSTITUTIONAL: No weight loss, fever, chills, + weakness or fatigue. HEENT: + Mild headache. Eyes: No visual loss, blurred vision, double vision or yellow sclerae. Ears, Nose, Throat: No hearing loss, sneezing, congestion, runny nose or sore throat. SKIN: No rash or itching, lesions, wounds. CARDIOVASCULAR: + Palpitations. No chest pain, chest pressure or chest discomfort, palpitations, orthopnea, syncopal events. RESPIRATORY: No shortness of breath, cough or sputum, wheezing, hemoptysis. GASTROINTESTINAL: No anorexia, nausea, vomiting or diarrhea, abdominal pain, melena, BRBPR. GENITOURINARY: No dysuria, frequency, urgency or retention. NEUROLOGICAL: + Mild headache. No dizziness, syncope, paralysis, ataxia, numbness or tingling in the extremities, focal weakness, change in bowel or bladder control, seizure. MUSCULOSKELETAL: + muscle, back pain, joint pain or stiffness. HEMATOLOGIC: No anemia, bleeding or bruising. LYMPHATICS: No enlarged nodes. No history of splenectomy. PSYCHIATRIC: No his (more content not included)... Normal [facility] normalized rat io (INR) calculationOrdered By: Dwight Patricia on 12-30-2024 INR Coag (Bld) [Relative time] 0.9 {INR} [facility] L501.4020on 12-30-2024 TROPONIN-I HS 29 pg/mL Normal 3.0-54.0 [facility] Comment on above: Result Comment: Plea se Note: New Test Units and Gender Specific Reference Ranges. For more information see Policy Stat Procedure [place] High Sensitivity Troponin (TNIH) and attachments. Performed By: #### L 501.4021, L500.2500, L100.0100 #### [facility] [address] [place], [address] L501.5425on 12-30-2024 TROPONIN-I HS 17 pg/mL Normal 3.0-54.0 [facility] Comment on above: Order Comment: 1 Y Result Comment: Plea se Note: New Test Units and Gender Specific Reference Ranges. For more information see Policy Stat Procedure [place] High Sensitivity Troponin (TNIH) and attachments. Performed By: #### L 501.5425, L100.0100, L500.2500 #### [facility] [address] [place], [address] Magnesiumon 12-30-2024 Magnesium [Mass/Vol] 2.2 mg/dL Normal 1.6-2.6 [facility] Comment on above: Result Comment: Mode rate Hemolysis, Result may be falsely increased. Performed By: #### L 501.4021, L500.2500, L100.0100 #### [facility] [address] [place], [address] Magnesium measurementOrdered By: Dwight Patricia on 12-30-2024 Magnesium [Mass/Vol] 2.2 mg/dL 1.6-2.6 [facility] Comment on above: Moderate Hemolysis, Result may be falsely increased. Partial Thromboplast Timeon 12-30-2024 aPTT Coag (Bld) [Time] 25.3 s Normal 24.1-36.2 [facility] Comment on above: Performed By: #### L 501.4021, L500.2500, L100.0100 #### [facility] [address] [place], [address] Prothrombin Time w/INRon INR Coag (PPP) [Relative time] 0.9 {INR} Normal [facility] Comment on above: Performed By: #### L 501.4021, L500.2500, L100.0100 #### [facility] [address] [place], [address] PT Coag (PPP) [Time] 12.8 s Normal 11.7-14.9 [facility] Comment on above: Performed By: #### L 501.4021, L500.2500, L100.0100 #### [facility] [address] [place], [address] Prothrombin timeOrdered By: Dwight Patricia on 12-30-2024 PT Coag (PPP) [Time] 12.8 s 11.7-14.9 [facility] Respiratory pathogens DNA an d RNA panel LISA+probe (Resp)Ordered By: Edda Langston on 12-30-2024 Respiratory Panel (PCR) [facility] [id number] By: Edda Langston on 12-30-2024 SARS-CoV-2 (COVID-19) RNA LISA+probe Ql (Unsp spec) [facility] T4 Free Directon 12-30-2024 T4 FREE DIRECT 0.85 ng/dL Normal 0.76-1.46 [facility] Comment on above: Performed By: #### L 501.4021, L500.2500, L100.0100 #### [facility] [address] [place], [address] TSH QnOrdered By: Dwighttheodora mckennaTamica on 12-30-2024 Thyroid Stimulating Hormone (TSH) 4.410 uIU/mL High 0.358-3.740 [facility] Thyroid Stim Hormone (TSH)on 12-30-2024 TSH 4.410 uIU/mL High 0.358-3.740 [facility] Comment on above: Performed By: #### L 501.4021, L500.2500, L100.0100 #### [facility] [address] [place], [address] aPTT Coag (PPP) [Time]Ordere d By: Dwight Patricia on 12-30-2024 aPTT Coag (Bld) [Time] 25.3 s 24.1-36.2 [facility] CBC W/Diff, Automatedon 05-25 Absolute Lymph 1.83 X10 3/uL Normal 0.83-4.51 [facility] Comment on above: Performed By: #### L 501.4021, L500.2500, L100.0100 #### [facility] [address] [place], [address] Absolute Neut 3.3 X10 3/uL Normal 2.0-7.7 [facility] Comment on above: Performed By: #### L 501.4021, L500.2500, L100.0100 #### [facility] [address] [place], [address] Basophils/100 WBC (Bld) 0.7 % Normal 0-1 [facility] Comment on above: Performed By: #### L 501.4021, L500.2500, L100.0100 #### [facility] [address] [place], [address] Eosinophils/100 WBC (Bld) 2.7 % Normal 0-5 [facility] Comment on above: Performed By: #### L 501.4021, L500.2500, L100.0100 #### [facility] [address] [place], [address] Erythrocyte distribution width (RBC) [Ratio] 13.1 % Normal 11.6-14.6 [facility] Comment on above: Performed By: #### L 501.4021, L500.2500, L100.0100 #### [facility] [address] [place], [address] Hematocrit (Bld) [Volume fraction] 44.4 % Normal 37-47 [facility] Comment on above: Performed By: #### L 501.4021, L500.2500, L100.0100 #### [facility] [address] [place], [address] Hemoglobin (Bld) [Mass/Vol] 14.6 g/dL Normal 12.0-15.0 [facility] Comment on above: Performed By: #### L 501.4021, L500.2500, L100.0100 #### [facility] [address] [place], [address] IG% 0.300 Normal 0.0-0.9 [facility] Comment on above: Result Comment: IG% - Immature Granulocytes (promyelocytes, myelocytes and metamyelocytes) > 1% indicates that a LEFT SHIFT is Present. Performed By: #### L 501.4021, L500.2500, L100.0100 #### [facility] [address] [place], [address] Lymphocytes/100 WBC (Bld) 31.2 % Normal 19-41 [facility] Comment on above: Performed By: #### L 501.4021, L500.2500, L100.0100 #### [facility] [address] [place], [address] MCH (RBC) [Entitic mass] 30.1 pg Normal 27.0-32.0 [facility] Comment on above: Performed By: #### L 501.4021, L500.2500, L100.0100 #### [facility] [address] [place], [address] MCHC (RBC) [Mass/Vol] 32.9 g/dL Normal 32-36 [facility] Comment on above: Performed By: #### L 501.4021, L500.2500, L100.0100 #### [facility] [address] [place], [address] MCV (RBC) [Entitic vol] 91.5 fL Normal 81-99 [facility] Comment on above: Performed By: #### L 501.4021, L500.2500, L100.0100 #### [facility] [address] [place], [address] Monocytes/100 WBC (Bld) 9.0 % Normal 0-10 [facility] Comment on above: Performed By: #### L 501.4021, L500.2500, L100.0100 #### [facility] [address] [place], [address] Neutrophils/100 WBC (Bld) 56.1 % Normal 47-70 [facility] Comment on above: Performed By: #### L 501.4021, L500.2500, L100.0100 #### [facility] [address] [place], [address] Nucleated RBC (Bld) [#/Vol] 0 10*3/uL Normal 0-5 [facility] Comment on above: Performed By: #### L 501.4021, L500.2500, L100.0100 #### [facility] [address] [place], [address] Platelet mean volume (Bld) [Entitic vol] 10.2 fL Normal 6.2-12.0 [facility] Comment on above: Performed By: #### L 501.4021, L500.2500, L100.0100 #### [facility] [address] [place], [address] Platelets (Bld) [#/Vol] 258 10*3/uL Normal 150-450 [facility] Comment on above: Performed By: #### L 501.4021, L500.2500, L100.0100 #### [facility] [address] [place], [address] RBC (Bld) [#/Vol] 4.85 10*6/uL Normal 4.2-5.4 [facility] Comment on above: Performed By: #### L 501.4021, L500.2500, L100.0100 #### [facility] [address] [place], [address] RDW SD 44.5 fl High 35.1-43.9 [facility] Comment on above: Performed By: #### L 501.4021, L500.2500, L100.0100 #### [facility] [address] [place], [address] WBC (Bld) [#/Vol] 5.9 10*3/uL Normal 4.4-11.0 [facility] Comment on above: Performed By: #### L 501.4021, L500.2500, L100.0100 #### [facility] [address] [place], [address] Comprehensive Metabolic Prof [facility] 06-15-2024 Albumin [Mass/Vol] 3.7 g/dL Normal 3.2-5.0 [facility] Comment on above: Performed By: #### L 501.4021, L500.2500, L100.0100 #### [facility] [address] [place], [address] Albumin/Globulin [Mass ratio] 0.9 {ratio} Normal 0.9-2.4 [facility] Comment on above: Performed By: #### L 501.4021, L500.2500, L100.0100 #### [facility] [address] [place], [address] ALK P 93 U/L Normal 45-117 [facility] Comment on above: Performed By: #### L 501.4021, L500.2500, L100.0100 #### [facility] [address] [place], [address] ALT [Catalytic activity/Vol] 28 U/L Normal 13-56 [facility] Comment on above: Performed By: #### L 501.4021, L500.2500, L100.0100 #### [facility] [address] [place], [address] AST [Catalytic activity/Vol] 25 U/L Normal 15-37 [facility] Comment on above: Performed By: #### L 501.4021, L500.2500, L100.0100 #### [facility] [address] [place], [address] Bilirubin [Mass/Vol] 0.60 mg/dL Normal 0.20-1.00 [facility] Comment on above: Result Comment: For patients on eltrombopag therapy, use of Dimension [place] TBIL is not recommended. Performed By: #### L 501.4021, L500.2500, L100.0100 #### [facility] [address] [place], [address] BUN/CRE 13.6 RATIO Normal 10-20 [facility] Comment on above: Performed By: #### L 501.4021, L500.2500, L100.0100 #### [facility] [address] [place], [address] CA,Total 9.5 mg/dL Normal 8.5-10.1 [facility] Comment on above: Performed By: #### L 501.4021, L500.2500, L100.0100 #### [facility] [address] [place], [address] Chloride [Moles/Vol] 106 mmol/L Normal 98-107 [facility] Comment on above: Performed By: #### L 501.4021, L500.2500, L100.0100 #### [facility] [address] [place], [address] CO2 [Moles/Vol] 29.0 mmol/L Normal 21.0-32.0 [facility] Comment on above: Performed By: #### L 501.4021, L500.2500, L100.0100 #### [facility] [address] [place], [address] Creatinine [Mass/Vol] 0.81 mg/dL Normal 0.55-1.02 [facility] Comment on above: Result Comment: The validity of the calculated GFR GFRAA in patients over 70 years has not been determined. Clinical correlation is essential. Performed By: #### L 501.4021, L500.2500, L100.0100 #### [facility] [address] [place], [address] EST GFR - AA 87 mL/min Normal >60 [facility] Comment on above: Result Comment: Afri can [place] GFR Calc Performed By: #### L 501.4021, L500.2500, L100.0100 #### [facility] [address] [place], [address] GAP 5 Normal 5-15 [facility] Comment on above: Performed By: #### L 501.4021, L500.2500, L100.0100 #### [facility] [address] [place], [address] GFR/1.73 sq M.predicted among non-blacks MDRD (S/P/Bld) [Vol rate/Area] 72 mL/min/{1.73_m2} Normal >60 [facility] Comment on above: Result Comment: Non- GFR Calc Performed By: #### L 501.4021, L500.2500, L100.0100 #### [facility] [address] [place], [address] Globulin (S) [Mass/Vol] 4.2 g/dL Normal 2.2-4.2 [facility] Comment on above: Performed By: #### L 501.4021, L500.2500, L100.0100 #### [facility] [address] [place], [address] Glucose [Mass/Vol] 95 mg/dL Normal 74-106 [facility] Comment on above: Performed By: #### L 501.4021, L500.2500, L100.0100 #### [facility] [address] [place], [address] Potassium [Moles/Vol] 3.9 mmol/L Normal 3.5-5.1 [facility] Comment on above: Performed By: #### L 501.4021, L500.2500, L100.0100 #### [facility] [address] [place], [address] Sodium [Moles/Vol] 140 mmol/L Normal 136-145 [facility] Comment on above: Performed By: #### L 501.4021, L500.2500, L100.0100 #### [facility] [address] [place], [address] T PROT 7.9 g/dL Normal 6.4-8.2 [facility] Comment on above: Performed By: #### L 501.4021, L500.2500, L100.0100 #### [facility] [address] [place], [address] Urea nitrogen [Mass/Vol] 11 mg/dL Normal 7-18 [facility] Comment on above: Performed By: #### L 501.4021, L500.2500, L100.0100 #### [facility] [address] [place], [address] Lipid Profileon 06-15-2024 Cholesterol [Mass/Vol] 183 mg/dL Normal 200 [facility] Comment on above: Result Comment: <200 mg/dL Desirable 200-240 mg/dL Borderline >240 mg/dL High Risk Performed By: #### L 501.4021, L500.2500, L100.0100 #### [facility] [address] [place], [address] Cholesterol in HDL [Mass/Vol] 56 mg/dL Normal [facility] Comment on above: Result Comment: The drugs N-Acetylcysteine and Metamizole may falsely depress this assay. Reference Range HDL <40 mg/dL Low HDL Cholesterol HDL >or= 60 mg/dL High HDL Cholesterol Performed By: #### L 501.4021, L500.2500, L100.0100 #### [facility] [address] [place], [address] Cholesterol in LDL [Mass/Vol] 93 mg/dL Normal 0-130 [facility] Comment on above: Performed By: #### L 501.4021, L500.2500, L100.0100 #### [facility] [address] [place], [address] Cholesterol in VLDL [Mass/Vol] 34 mg/dL Normal 5-40 [facility] Comment on above: Performed By: #### L 501.4021, L500.2500, L100.0100 #### [facility] [address] [place], [address] Triglyceride [Mass/Vol] 169 mg/dL Normal [facility] Comment on above: Result Comment: The drugs N-Acetylcysteine and Metamizole may falsely depress this assay. Serum Triglycerides Reference Interval Normal <150 mg/dL Borderline high 150 - 199 mg/dL High 200 - 499 mg/dL Very High > or = 500 mg/dL Performed By: #### L 501.4021, L500.2500, L100.0100 #### [facility] [address] [place], [address] Vitamin D,25 Hydroxyon 06-15 Vitamin D 25-OH 35.1 ng/mL Normal [facility] Comment on above: Result Comment: Cheryl min D 25(OH) Status Range Deficiency <20 ng/mL (50nmol/L) Insufficiency 20 - 30 ng/mL (50 - 75 nmol/L) Sufficiency 30 - 100 ng/mL (75 - 250 nmol/L) Toxicity >100 ng/mL (>250 nmol/L) Performed By: #### L 501.4021, L500.2500, L100.0100 #### [facility] [address] [place], [address] Absolute lymphocyte countOrd ered By: Jacquie Coleman on 11-27-2023 Lymphocytes Auto (Unsp spec) [#/Vol] 1.91 10*3/uL 0.83-4.51 [facility] Basophil percentageOrdered B y: Jacquie Coleman on 11-27-2023 Basophils/100 WBC (Bld) 0.7 % 0-1 [facility] Chloride [Moles/Vol] 106 mmol/L 98-107 [facility] Eosinophils/100 WBC (Bld) 3.3 % 0-5 [facility] Glucose [Mass/Vol] 107 mg/dL 74-106 [facility] Comment on above: Fasting Glucose resu lt from 100 to 125 mg/dL suggests IMPAIRED HOMEOSTASIS per A.D.A. criteria. Neutrophils (Bld) [#/Vol] 3.4 10*3/uL 2.0-7.7 [facility] Neutrophils/100 WBC (Bld) 56.0 % 47-70 [facility] Potassium [Moles/Vol] 3.3 mmol/L 3.5-5.1 [facility] Sodium [Moles/Vol] 141 mmol/L 136-145 [facility] WBC (Bld) [#/Vol] 6.1 10*3/uL 4.4-11.0 [facility] Blood erythrocytes count (nu mber/volume)Ordered By: Jacquie Coleman on 11-27-2023 RBC (Bld) [#/Vol] 3.27 10*6/uL 4.2-5.4 [facility] Blood hemoglobin measurement (mass/volume)Ordered By: Jacquie Coleman on 11-27-2023 Hemoglobin (Bld) [Mass/Vol] 10.0 g/dL 12.0-15.0 [facility] Blood lymphocytes/100 leukoc ytesOrdered By: Jacquie Coleman on 11-27-2023 Lymphocytes/100 WBC (Bld) 31.2 % 19-41 [facility] Blood monocytes/100 leukocyt esOrdered By: Jacquie Coleman on 11-27-2023 Monocytes/100 WBC (Bld) 8.3 % 0-10 [facility] Blood platelet mean volumeOr dered By: Jacquie Coleman on 11-27-2023 Platelet mean volume (Bld) [Entitic vol] 10.3 fL 6.2-12.0 [facility] Determination of erythrocyte mean corpuscular volume (MCV)Ordered By: Jacquie Coleman on 11-27-2023 MCV (RBC) [Entitic vol] 95.1 fL 81-99 [facility] Hematocrit Auto (Bld) [Volum e fraction]Ordered By: Jacquie Coleman on 11-27-2023 Hematocrit (Bld) [Volume fraction] 31.1 % 37-47 [facility] Hemoglobin in reticulocytes (mass per reticulocyte)Ordered By: Jacquie Coleman on 11-27-2023 Hemoglobin (Reticulocytes) [Entitic mass] 28.1 pg 30-35 [facility] - Chemistry and C hemistry - challengeOrdered By: Jacquie Coleman on 11-27-2023 CO2 [Moles/Vol] 29.0 mmol/L 21.0-32.0 [facility] Urea nitrogen/Creatinine [Mass ratio] 11.9 mg/mg 10-20 [facility] - Hematology and Cell countsOrdered By: Jacquie Coleman on 11-27-2023 Erythrocyte distribution width (RBC) [Entitic vol] 50.4 fL 35.1-43.9 [facility] Erythrocyte distribution width (RBC) [Ratio] 15.0 % 11.6-14.6 [facility] Immature granulocytes/100 WBC (Bld) 0.500 % 0.0-0.9 [facility] Comment on above: IG% - Immature Granu locytes (promyelocytes, myelocytes and metamyelocytes) > 1% indicates that a LEFT SHIFT is Present. MCH (RBC) [Entitic mass] 30.6 pg 27.0-32.0 [facility] Nucleated RBC/100 WBC (Bld) [Ratio] 0 % 0-5 [facility] MCHC Auto (RBC) [Mass/Vol]Or dered By: Jacquie Coleman on 11-27-2023 MCHC (RBC) [Mass/Vol] 32.2 g/dL 32-36 [facility] No Panel InformationOrdered By: Jacquie Coleman on 11-27-2023 Estimated GFR (MDRD) Amer 83 mL/min >60 [facility] Comment on above: GFR Calc Estimated GFR (MDRD) Non-Af Amer 69 mL/min >60 [facility] Comment on above: Non- GFR Calc Immature Reticulocyte Fraction 25.50 % 3.00-15.90 [facility] Reticulocyte Count 6.08 % 0.5-1.5 [facility] Platelets bldOrdered By: Lamin Coleman on 11-27-2023 Platelets (Bld) [#/Vol] 272 10*3/uL 150-450 [facility] Serum or plasma calcium balaji urement (mass/volume)Ordered By: Jacquie Coleman on 11-27-2023 Calcium [Mass/Vol] 8.6 mg/dL 8.5-10.1 [facility] Serum or plasma creatinine m easurement (mass/volume)Ordered By: Jacquie Coleman on 11-27-2023 Creatinine [Mass/Vol] 0.84 mg/dL 0.55-1.02 [facility] Comment on above: The validity of the calculated GFR & GFRAA in patients over 70 years has not been determined. Clinical correlation is essential. Serum or plasma urea nitroge n measurement (mass/volume)Ordered By: Jacquie Coleman on 11-27-2023 Urea nitrogen [Mass/Vol] 10 mg/dL 7-18 [facility] Thin prep Papanicolaou smear with manual screeningOrdered By: Jacquie Coleman on 11-27-2023 Thin prep Papanicolaou smear with manual screening 6 5-15 [facility] Absolute lymphocyte countOrd ered By: Analy Aguirre on 11-19-2023 Lymphocytes Auto (Unsp spec) [#/Vol] 3.08 10*3/uL 0.83-4.51 [facility] Basophil percentageOrdered B y: Analy Aguirre on 11-19-2023 Basophils/100 WBC (Bld) 0.6 % 0-1 [facility] Bilirubin [Mass/Vol] 0.40 mg/dL 0.20-1.00 [facility] Comment on above: For patients on eltr ombopag therapy, use of Dimension [place] TBIL is not recommended. Chloride [Moles/Vol] 104 mmol/L 98-107 [facility] Eosinophils/100 WBC (Bld) 0.9 % 0-5 [facility] Glucose [Mass/Vol] 121 mg/dL 74-106 [facility] Comment on above: Fasting Glucose resu lt from 100 to 125 mg/dL suggests IMPAIRED HOMEOSTASIS per A.D.A. criteria. Neutrophils (Bld) [#/Vol] 5.5 10*3/uL 2.0-7.7 [facility] Neutrophils/100 WBC (Bld) 56.9 % 47-70 [facility] Potassium [Moles/Vol] 4.1 mmol/L 3.5-5.1 [facility] Protein [Mass/Vol] 7.4 g/dL 6.4-8.2 [facility] Sodium [Moles/Vol] 135 mmol/L 136-145 [facility] WBC (Bld) [#/Vol] 9.6 10*3/uL 4.4-11.0 [facility] Blood erythrocytes count (nu mber/volume)Ordered By: Analy Aguirre on 11-19-2023 RBC (Bld) [#/Vol] 3.86 10*6/uL 4.2-5.4 [facility] Blood hemoglobin measurement (mass/volume)Ordered By: Analy Aguirre on 11-19-2023 Hemoglobin (Bld) [Mass/Vol] 11.5 g/dL 12.0-15.0 [facility] Blood lymphocytes/100 leukoc ytesOrdered By: Analy Aguirre on 11-19-2023 Lymphocytes/100 WBC (Bld) 32.0 % 19-41 [facility] Blood monocytes/100 leukocyt esOrdered By: Analy Aguirre on 11-19-2023 Monocytes/100 WBC (Bld) 9.3 % 0-10 [facility] Blood platelet mean volumeOr dered By: Analy Aguirre on 11-19-2023 Platelet mean volume (Bld) [Entitic vol] 10.1 fL 6.2-12.0 [facility] Determination of erythrocyte mean corpuscular volume (MCV)Ordered By: Analy Aguirre on 11-19-2023 MCV (RBC) [Entitic vol] 89.4 fL 81-99 [facility] Hematocrit Auto (Bld) [Volum e fraction]Ordered By: Analy Aguirre on 11-19-2023 Hematocrit (Bld) [Volume fraction] 34.5 % 37-47 [facility] - Chemistry and C hemistry - challengeOrdered By: Analy Aguirre on 11-19-2023 ALP [Catalytic activity/Vol] 77 U/L 45-117 [facility] ALT [Catalytic activity/Vol] 27 U/L 13-56 [facility] CO2 [Moles/Vol] 23.0 mmol/L 21.0-32.0 [facility] Globulin (S) [Mass/Vol] 3.8 g/dL 2.2-4.2 [facility] Urea nitrogen/Creatinine [Mass ratio] 31.6 mg/mg 10-20 [facility] - Hematology and Cell countsOrdered By: Analy Aguirre on 11-19-2023 Erythrocyte distribution width (RBC) [Entitic vol] 45.9 fL 35.1-43.9 [facility] Erythrocyte distribution width (RBC) [Ratio] 14.2 % 11.6-14.6 [facility] Immature granulocytes/100 WBC (Bld) 0.300 % 0.0-0.9 [facility] Comment on above: IG% - Immature Granu locytes (promyelocytes, myelocytes and metamyelocytes) > 1% indicates that a LEFT SHIFT is Present. MCH (RBC) [Entitic mass] 29.8 pg 27.0-32.0 [facility] Nucleated RBC/100 WBC (Bld) [Ratio] 0 % 0-5 [facility] Lower GI hemoglobin IA Ql (S tl)Ordered By: Analy Aguirre on 11-19-2023 Stool Occult Blood (CRISTIAN) Positive [facility] MCHC Auto (RBC) [Mass/Vol]Or dered By: Analy Aguirre on 11-19-2023 MCHC (RBC) [Mass/Vol] 33.3 g/dL 32-36 [facility] No Panel InformationOrdered By: Analy Aguirre on 11-19-2023 Estimated Creatinine Clearance Calc 37.88 ml/min [facility] Estimated GFR (MDRD) Amer 78 mL/min >60 [facility] Comment on above: GFR Calc Estimated GFR (MDRD) Non-Af Amer 65 mL/min >60 [facility] Comment on above: Non- GFR Calc Troponin I High Sensitivity 21 pg/mL 3.0-54.0 [facility] Comment on above: Please Note: New [place] t Units and Gender Specific Reference Ranges. For more information see Policy Stat Procedure [place] High Sensitivity Troponin (TNIH) and attachments. Platelets bldOrdered By: Antonina Aguirre on 11-19-2023 Platelets (Bld) [#/Vol] 240 10*3/uL 150-450 [facility] Serum or plasma albumin balaji urement (mass/volume)Ordered By: Analy Aguirre on 11-19-2023 Albumin [Mass/Vol] 3.6 g/dL 3.2-5.0 [facility] Serum or plasma albumin/glob ulin mass ratioOrdered By: Analy Aguirre on 11-19-2023 Albumin/Globulin [Mass ratio] 0.9 {ratio} 0.9-2.4 [facility] Serum or plasma calcium balaji urement (mass/volume)Ordered By: Analy Aguirre on 11-19-2023 Calcium [Mass/Vol] 9.3 mg/dL 8.5-10.1 [facility] Serum or plasma creatinine m easurement (mass/volume)Ordered By: Analy Aguirre on 11-19-2023 Creatinine [Mass/Vol] 0.89 mg/dL 0.55-1.02 [facility] Comment on above: The validity of the calculated GFR & GFRAA in patients over 70 years has not been determined. Clinical correlation is essential. Serum or plasma urea nitroge n measurement (mass/volume)Ordered By: Analy Aguirre on 11-19-2023 Urea nitrogen [Mass/Vol] 28 mg/dL 7-18 [facility] Thin prep Papanicolaou smear with manual screeningOrdered By: Analy Aguirre on 11-19-2023 Thin prep Papanicolaou smear with manual screening 20 U/L 15-37 [facility] Thin prep Papanicolaou smear with manual screening 8 5-15 [facility] Absolute lymphocyte countOrd ered By: Jacquie Coleman on 09-22-2023 Lymphocytes Auto (Unsp spec) [#/Vol] 2.17 10*3/uL 0.83-4.51 [facility] Basophil percentageOrdered B y: Jacquie Coleman on 09-22-2023 Basophils/100 WBC (Bld) 1.0 % 0-1 [facility] Bilirubin [Mass/Vol] 0.70 mg/dL 0.20-1.00 [facility] Comment on above: For patients on eltr ombopag therapy, use of Dimension [place] TBIL is not recommended. Chloride [Moles/Vol] 105 mmol/L 98-107 [facility] Cholesterol [Mass/Vol] 179 mg/dL <200 [facility] Comment on above: <200 mg/dL Desirable 200-240 mg/dL Borderline >240 mg/dL High Risk Eosinophils/100 WBC (Bld) 3.6 % 0-5 [facility] Glucose [Mass/Vol] 95 mg/dL 74-106 [facility] Neutrophils (Bld) [#/Vol] 2.9 10*3/uL 2.0-7.7 [facility] Neutrophils/100 WBC (Bld) 49.2 % 47-70 [facility] Potassium [Moles/Vol] 3.8 mmol/L 3.5-5.1 [facility] Protein [Mass/Vol] 7.4 g/dL 6.4-8.2 [facility] Sodium [Moles/Vol] 139 mmol/L 136-145 [facility] Triglyceride [Mass/Vol] 171 mg/dL <199 [facility] Comment on above: The drugs N-Acetylcy steine and Metamizole may falsely depress this assay.Serum Triglycerides Reference Interval Normal <150 mg/dL Borderline high 150 - 199 mg/dL High 200 - 499 mg/dL Very High > or = 500 mg/dL WBC (Bld) [#/Vol] 5.8 10*3/uL 4.4-11.0 [facility] Blood erythrocytes count (nu mber/volume)Ordered By: Jacquie Coleman on 09-22-2023 RBC (Bld) [#/Vol] 4.81 10*6/uL 4.2-5.4 [facility] Blood hemoglobin measurement (mass/volume)Ordered By: Jacquie Coleman on 09-22-2023 Hemoglobin (Bld) [Mass/Vol] 14.3 g/dL 12.0-15.0 [facility] Blood lymphocytes/100 leukoc ytesOrdered By: Jacquie Coleman on 09-22-2023 Lymphocytes/100 WBC (Bld) 37.2 % 19-41 [facility] Blood monocytes/100 leukocyt esOrdered By: Jacquie Coleman on 09-22-2023 Monocytes/100 WBC (Bld) 8.7 % 0-10 [facility] Blood platelet mean volumeOr dered By: Jacquie Coleman on 09-22-2023 Platelet mean volume (Bld) [Entitic vol] 10.7 fL 6.2-12.0 [facility] Determination of erythrocyte mean corpuscular volume (MCV)Ordered By: Jacquie Coleman on 09-22-2023 MCV (RBC) [Entitic vol] 91.3 fL 81-99 [facility] Hematocrit Auto (Bld) [Volum e fraction]Ordered By: Jacquie Jared on 09-22-2023 Hematocrit (Bld) [Volume fraction] 43.9 % 37-47 [facility] Laboratory - Chemistry and C hemistry - challengeOrdered By[facility] ALP [Catalytic activity/Vol] 85 U/L 45-117 [facility] ALT [Catalytic activity/Vol] 27 U/L 13-56 [facility] CO2 [Moles/Vol] 28.0 mmol/L 21.0-32.0 [facility] Globulin (S) [Mass/Vol] 3.8 g/dL 2.2-4.2 [facility] Urea nitrogen/Creatinine [Mass ratio] 16.8 mg/mg 10-20 [facility] Laboratory - Hematology and Cell countsOrdered By: [place] Jared on 09-22-2023 Erythrocyte distribution width (RBC) [Entitic vol] 46.8 fL 35.1-43.9 [facility] Erythrocyte distribution width (RBC) [Ratio] 13.8 % 11.6-14.6 [facility] Immature granulocytes/100 WBC (Bld) 0.300 % 0.0-0.9 [facility] Comment on above: IG% - Immature Granu locytes (promyelocytes, myelocytes and metamyelocytes) > 1% indicates that a LEFT SHIFT is Present. MCH (RBC) [Entitic mass] 29.7 pg 27.0-32.0 [facility] Nucleated RBC/100 WBC (Bld) [Ratio] 0 % 0-5 [facility] MCHC Auto (RBC) [Mass/Vol]Or dered By: Jacquie Coleman on 09-22-2023 MCHC (RBC) [Mass/Vol] 32.6 g/dL 32-36 [facility] No Panel InformationOrdered By: Jacquie Coleman on 09-22-2023 Estimated GFR (MDRD) Amer 92 mL/min >60 [facility] Comment on above: GFR Calc Estimated GFR (MDRD) Non-Af Amer 76 mL/min >60 [facility] Comment on above: Non- GFR Calc Vitamin D 25-Hydroxy 31.8 ng/mL [facility] Comment on above: Vitamin D 25(OH) Sta tus Range Deficiency <20 ng/mL (50nmol/L) Insufficiency 20 - 30 ng/mL (50 - 75 nmol/L) Sufficiency 30 - 100 ng/mL (75 - 250 nmol/L) Toxicity >100 ng/mL (>250 nmol/L) Platelets bldOrdered By: Lamin Coleman on 09-22-2023 Platelets (Bld) [#/Vol] 235 10*3/uL 150-450 [facility] Serum or plasma albumin balaji urement (mass/volume)Ordered By: Jacquie Coleman on 09-22-2023 Albumin [Mass/Vol] 3.6 g/dL 3.2-5.0 [facility] Serum or plasma albumin/glob ulin mass ratioOrdered By: Jacquie Coleman on 09-22-2023 Albumin/Globulin [Mass ratio] 0.9 {ratio} 0.9-2.4 [facility] Serum or plasma calcium balaji urement (mass/volume)Ordered By: Jacquie Coleman on 09-22-2023 Calcium [Mass/Vol] 9.1 mg/dL 8.5-10.1 [facility] Serum or plasma cholesterol in HDL measurement (mass/volume)Ordered By: Jacquie Coleman on 09-22-2023 Cholesterol in HDL [Mass/Vol] 54 mg/dL >40 [facility] Comment on above: The drugs N-Acetylcy steine and Metamizole may falsely depress this assay. Reference Range HDL <40 mg/dL Low HDL Cholesterol HDL >or= 60 mg/dL High HDL Cholesterol Serum or plasma cholesterol in VLDL measurement (mass/volume)Ordered By: Jacquie Coleman on 09-22-2023 Cholesterol in VLDL [Mass/Vol] 34 mg/dL 5-40 [facility] Serum or plasma creatinine m easurement (mass/volume)Ordered By: Jacquie Coleman on 09-22-2023 Creatinine [Mass/Vol] 0.77 mg/dL 0.55-1.02 [facility] Comment on above: The validity of the calculated GFR & GFRAA in patients over 70 years has not been determined. Clinical correlation is essential. Serum or plasma low density lipoprotein (LDL) cholesterol measurement (mass/volume)Ordered By: Jacquie Coleman on 09-22-2023 Cholesterol in LDL [Mass/Vol] 91 mg/dL 0-130 [facility] Serum or plasma urea nitroge n measurement (mass/volume)Ordered By: Jacquie Coleman on 09-22-2023 Urea nitrogen [Mass/Vol] 13 mg/dL 7-18 [facility] Thin prep Papanicolaou smear with manual screeningOrdered By: Jacquie Coleman on 09-22-2023 Thin prep Papanicolaou smear with manual screening 20 U/L 15-37 [facility] Thin prep Papanicolaou smear with manual screening 6 5-15 [facility] Absolute lymphocyte countOrd ered By: Dr. Coleman on 03-24-2023 Lymphocytes Auto (Unsp spec) [#/Vol] 2.21 10*3/uL 0.83-4.51 [facility] Basophil percentageOrdered B y: Dr. Coleman on 03-24-2023 Basophils/100 WBC (Bld) 0.6 % 0-1 [facility] Bilirubin [Mass/Vol] 0.60 mg/dL 0.20-1.00 [facility] Comment on above: For patients on eltr ombopag therapy, use of Dimension [place] TBIL is not recommended. Chloride [Moles/Vol] 105 mmol/L 98-107 [facility] Cholesterol [Mass/Vol] 166 mg/dL <200 [facility] Comment on above: <200 mg/dL Desirable 200-240 mg/dL Borderline >240 mg/dL High Risk Eosinophils/100 WBC (Bld) 3.7 % 0-5 [facility] Glucose [Mass/Vol] 93 mg/dL 74-106 [facility] Neutrophils (Bld) [#/Vol] 3.5 10*3/uL 2.0-7.7 [facility] Neutrophils/100 WBC (Bld) 52.8 % 47-70 [facility] Potassium [Moles/Vol] 3.9 mmol/L 3.5-5.1 [facility] Protein [Mass/Vol] 7.8 g/dL 6.4-8.2 [facility] Sodium [Moles/Vol] 140 mmol/L 136-145 [facility] Triglyceride [Mass/Vol] 182 mg/dL <199 [facility] Comment on above: The drugs N-Acetylcy steine and Metamizole may falsely depress this assay.Serum Triglycerides Reference Interval Normal <150 mg/dL Borderline high 150 - 199 mg/dL High 200 - 499 mg/dL Very High > or = 500 mg/dL WBC (Bld) [#/Vol] 6.6 10*3/uL 4.4-11.0 [facility] Blood erythrocytes count (nu mber/volume)Ordered By: Dr. Coleman on 03-24-2023 RBC (Bld) [#/Vol] 4.68 10*6/uL 4.2-5.4 [facility] Blood hemoglobin measurement (mass/volume)Ordered By: Dr. Coleman on 03-24-2023 Hemoglobin (Bld) [Mass/Vol] 14.0 g/dL 12.0-15.0 [facility] Blood lymphocytes/100 leukoc ytesOrdered By: Dr. Coleman on 03-24-2023 Lymphocytes/100 WBC (Bld) 33.6 % 19-41 [facility] Blood monocytes/100 leukocyt esOrdered By: Dr. Coleman on 03-24-2023 Monocytes/100 WBC (Bld) 8.8 % 0-10 [facility] Blood platelet mean volumeOr dered By: Dr. Coleman on 03-24-2023 Platelet mean volume (Bld) [Entitic vol] 10.5 fL 6.2-12.0 [facility] Determination of erythrocyte mean corpuscular volume (MCV)Ordered By: Dr. Coleman on 03-24-2023 MCV (RBC) [Entitic vol] 92.5 fL 81-99 [facility] Hematocrit Auto (Bld) [Volum e fraction]Ordered By: Dr. Coleman on 03-24-2023 Hematocrit (Bld) [Volume fraction] 43.3 % 37-47 [facility] Laboratory - Chemistry and C hemistry - challengeOrdered By: Dr. Coleman on 03-24-2023 ALP [Catalytic activity/Vol] 84 U/L 45-117 [facility] ALT [Catalytic activity/Vol] 28 U/L 13-56 [facility] CO2 [Moles/Vol] 29.0 mmol/L 21.0-32.0 [facility] Globulin (S) [Mass/Vol] 4.2 g/dL 2.2-4.2 [facility] Urea nitrogen/Creatinine [Mass ratio] 29.6 mg/mg 10-20 [facility] Laboratory - Hematology and Cell countsOrdered By: Dr. Coleman on 03-24-2023 Erythrocyte distribution width (RBC) [Entitic vol] 46.8 fL 35.1-43.9 [facility] Erythrocyte distribution width (RBC) [Ratio] 13.5 % 11.6-14.6 [facility] Immature granulocytes/100 WBC (Bld) 0.500 % 0.0-0.9 [facility] Comment on above: IG% - Immature Granu locytes (promyelocytes, myelocytes and metamyelocytes) > 1% indicates that a LEFT SHIFT is Present. MCH (RBC) [Entitic mass] 29.9 pg 27.0-32.0 [facility] Nucleated RBC/100 WBC (Bld) [Ratio] 0 % 0-5 [facility] MCHC Auto (RBC) [Mass/Vol]Or dered By: Dr. Coleman on 03-24-2023 MCHC (RBC) [Mass/Vol] 32.3 g/dL 32-36 [facility] No Panel InformationOrdered By: Dr. Coleman on 03-24-2023 Estimated GFR (MDRD) Amer 129 mL/min >60 [facility] Comment on above: GFR Calc Estimated GFR (MDRD) Non-Af Amer 107 mL/min >60 [facility] Comment on above: Non- GFR Calc Vitamin D 25-Hydroxy 30.5 ng/mL [facility] Comment on above: Vitamin D 25(OH) Sta tus Range Deficiency <20 ng/mL (50nmol/L) Insufficiency 20 - 30 ng/mL (50 - 75 nmol/L) Sufficiency 30 - 100 ng/mL (75 - 250 nmol/L) Toxicity >100 ng/mL (>250 nmol/L) Platelets bldOrdered By: Dr. Coleman on 03-24-2023 Platelets (Bld) [#/Vol] 245 10*3/uL 150-450 [facility] Serum or plasma albumin balaji urement (mass/volume)Ordered By: Dr. Coleman on 03-24-2023 Albumin [Mass/Vol] 3.6 g/dL 3.2-5.0 [facility] Serum or plasma albumin/glob ulin mass ratioOrdered By: Dr. Coleman on 03-24-2023 Albumin/Globulin [Mass ratio] 0.9 {ratio} 0.9-2.4 [facility] Serum or plasma calcium balaji urement (mass/volume)Ordered By: Dr. Coleman on 03-24-2023 Calcium [Mass/Vol] 9.3 mg/dL 8.5-10.1 [facility] Serum or plasma cholesterol in HDL measurement (mass/volume)Ordered By: Dr. Coleman on 03-24-2023 Cholesterol in HDL [Mass/Vol] 49 mg/dL >40 [facility] Comment on above: The drugs N-Acetylcy steine and Metamizole may falsely depress this assay. Reference Range HDL <40 mg/dL Low HDL Cholesterol HDL >or= 60 mg/dL High HDL Cholesterol Serum or plasma cholesterol in VLDL measurement (mass/volume)Ordered By: Dr. Coleman on 03-24-2023 Cholesterol in VLDL [Mass/Vol] 36 mg/dL 5-40 [facility] Serum or plasma creatinine m easurement (mass/volume)Ordered By: Dr. Coleman on 03-24-2023 Creatinine [Mass/Vol] 0.57 mg/dL 0.55-1.02 [facility] Comment on above: The validity of the calculated GFR & GFRAA in patients over 70 years has not been determined. Clinical correlation is essential. Serum or plasma low density lipoprotein (LDL) cholesterol measurement (mass/volume)Ordered By: Dr. Coleman on 03-24-2023 Cholesterol in LDL [Mass/Vol] 81 mg/dL 0-130 [facility] Serum or plasma urea nitroge n measurement (mass/volume)Ordered By: Dr. Coleman on 03-24-2023 Urea nitrogen [Mass/Vol] 17 mg/dL 7-18 [facility] Thin prep Papanicolaou smear with manual screeningOrdered By: Dr. Coleman on 03-24-2023 Thin prep Papanicolaou smear with manual screening 23 U/L 15-37 [facility] Thin prep Papanicolaou smear with manual screening 6 5-15 [facility] Absolute lymphocyte counton 09-17-2022 Lymphocytes Auto (Unsp spec) [#/Vol] 2.49 10*3/uL 0.83-4.51 [facility] Work Phone: Basophil percentageon 2021 Basophils/100 WBC (Bld) 1.1 % 0-1 [facility] Work Phone: Bilirubin [Mass/Vol] 0.60 mg/dL 0.20-1.00 [facility] Work Phone: Comment on above: For patients on eltr ombopag therapy, use of Dimension [place] TBIL is not recommended. Chloride [Moles/Vol] 107 mmol/L 98-107 [facility] Work Phone: Cholesterol [Mass/Vol] 174 mg/dL <200 [facility] Work Phone: Comment on above: <200 mg/dL Desirable 200-240 mg/dL Borderline >240 mg/dL High Risk Eosinophils/100 WBC (Bld) 8.1 % 0-5 [facility] Work Phone: Glucose [Mass/Vol] 95 mg/dL 74-106 [facility] Work Phone: Neutrophils (Bld) [#/Vol] 3.6 10*3/uL 2.0-7.7 [facility] Work Phone: Neutrophils/100 WBC (Bld) 47.9 % 47-70 [facility] Work Phone: [phone] Potassium [Moles/Vol] 3.7 mmol/L 3.5-5.1 [facility] Work Phone: Protein [Mass/Vol] 7.4 g/dL 6.4-8.2 [facility] Work Phone: Sodium [Moles/Vol] 140 mmol/L 136-145 [facility] Work Phone: Triglyceride [Mass/Vol] 188 mg/dL <199 [facility] Work Phone: Comment on above: The drugs N-Acetylcy steine and Metamizole may falsely depress this assay.Serum Triglycerides Reference Interval Normal <150 mg/dL Borderline high 150 - 199 mg/dL High 200 - 499 mg/dL Very High > or = 500 mg/dL WBC (Bld) [#/Vol] 7.5 10*3/uL 4.4-11.0 [facility] Work Phone: Blood erythrocytes count (nu mber/volume)on 09-17-2022 RBC (Bld) [#/Vol] 4.88 10*6/uL 4.2-5.4 [facility] Work Phone: Blood hemoglobin measurement (mass/volume)on 09-17-2022 Hemoglobin (Bld) [Mass/Vol] 14.9 g/dL 12.0-15.0 [facility] Work Phone: Blood lymphocytes/100 leukoc yteson 09-17-2022 Lymphocytes/100 WBC (Bld) 33.1 % 19-41 [facility] Work Phone: Blood monocytes/100 leukocyt eson 09-17-2022 Monocytes/100 WBC (Bld) 9.4 % 0-10 [facility] Work Phone: Blood platelet mean volumeon 09-17-2022 Platelet mean volume (Bld) [Entitic vol] 11.3 fL 6.2-12.0 [facility] Work Phone: Determination of erythrocyte mean corpuscular volume (MCV)on 09-17-2022 MCV (RBC) [Entitic vol] 92.2 fL 81-99 [facility] Work Phone: Hematocrit Auto (Bld) [Volum e fraction]on 09-17-2022 Hematocrit (Bld) [Volume fraction] 45.0 % 37-47 [facility] Work Phone: Laboratory - Chemistry and C hemistry - challengeon 09-17-2022 ALP [Catalytic activity/Vol] 76 U/L 45-117 [facility] Work Phone: ALT [Catalytic activity/Vol] 27 U/L 13-56 [facility] Work Phone: CO2 [Moles/Vol] 28.0 mmol/L 21.0-32.0 [facility] Work Phone: Globulin (S) [Mass/Vol] 3.8 g/dL 2.2-4.2 [facility] Work Phone: Urea nitrogen/Creatinine [Mass ratio] 18.4 mg/mg 10-20 [facility] Work Phone: Laboratory - Hematology and Cell countson 09-17-2022 Erythrocyte distribution width (RBC) [Entitic vol] 48.5 fL 35.1-43.9 [facility] Work Phone: Erythrocyte distribution width (RBC) [Ratio] 14.1 % 11.6-14.6 [facility] Work Phone: Immature granulocytes/100 WBC (Bld) 0.400 % 0.0-0.9 [facility] Work Phone: Comment on above: IG% - Immature Granu locytes (promyelocytes, myelocytes and metamyelocytes) > 1% indicates that a LEFT SHIFT is Present. MCH (RBC) [Entitic mass] 30.5 pg 27.0-32.0 [facility] Work Phone: Nucleated RBC/100 WBC (Bld) [Ratio] 0 % 0-5 [facility] Work Phone: MCHC Auto (RBC) [Mass/Vol]on 09-17-2022 MCHC (RBC) [Mass/Vol] 33.1 g/dL 32-36 [facility] Work Phone: No Panel Informationon 09-17 Estimated GFR (MDRD) Amer 94 mL/min >60 [facility] Work Phone: Comment on above: GFR Calc Estimated GFR (MDRD) Non-Af Amer 77 mL/min >60 [facility] Work Phone: Comment on above: Non- GFR Calc Vitamin D 25-Hydroxy 25.5 ng/mL [facility] Work Phone: Comment on above: Vitamin D 25(OH) Sta tus Range Deficiency <20 ng/mL (50nmol/L) Insufficiency 20 - 30 ng/mL (50 - 75 nmol/L) Sufficiency 30 - 100 ng/mL (75 - 250 nmol/L) Toxicity >100 ng/mL (>250 nmol/L) Platelets bldon 09-17-2022 Platelets (Bld) [#/Vol] 235 10*3/uL 150-450 [facility] Work Phone: Serum or plasma albumin balaji urement (mass/volume)on 09-17-2022 Albumin [Mass/Vol] 3.6 g/dL 3.2-5.0 [facility] Work Phone: Serum or plasma albumin/glob ulin mass ratioon 09-17-2022 Albumin/Globulin [Mass ratio] 0.9 {ratio} 0.9-2.4 [facility] Work Phone: Serum or plasma calcium balaji urement (mass/volume)on 09-17-2022 Calcium [Mass/Vol] 9.1 mg/dL 8.5-10.1 [facility] Work Phone: Serum or plasma cholesterol in HDL measurement (mass/volume)on 09-17-2022 Cholesterol in HDL [Mass/Vol] 52 mg/dL >40 [facility] Work Phone: Comment on above: The drugs N-Acetylcy steine and Metamizole may falsely depress this assay. Reference Range HDL <40 mg/dL Low HDL Cholesterol HDL >or= 60 mg/dL High HDL Cholesterol Serum or plasma cholesterol in VLDL measurement (mass/volume)on 09-17-2022 Cholesterol in VLDL [Mass/Vol] 38 mg/dL 5-40 [facility] Work Phone: Serum or plasma creatinine m easurement (mass/volume)on 09-17-2022 Creatinine [Mass/Vol] 0.76 mg/dL 0.55-1.02 [facility] Work Phone: Comment on above: The validity of the calculated GFR & GFRAA in patients over 70 years has not been determined. Clinical correlation is essential. Serum or plasma low density lipoprotein (LDL) cholesterol measurement (mass/volume)on 09-17-2022 Cholesterol in LDL [Mass/Vol] 84 mg/dL 0-130 [facility] Work Phone: Serum or plasma urea nitroge n measurement (mass/volume)on 09-17-2022 Urea nitrogen [Mass/Vol] 14 mg/dL 7-18 [facility] Work Phone: Thin prep Papanicolaou smear with manual screeningon 09-17-2022 Thin prep Papanicolaou smear with manual screening 22 U/L 15-37 [facility] Work Phone: Thin prep Papanicolaou smear with manual screening 5 5-15 [facility] Work Phone: Basophil percentageon 2021 Basophil percentage >100 SEEN /hpf 0-5 [facility] Work Phone: Bilirubin Test strip Ql (U)o n 07-29-2022 Bilirubin Ql (U) Negative Negative [facility] Work Phone: Ketones Test strip Ql (U)on 07-29-2022 Ketones Ql (U) 5 mg/dl Negative [facility] Work Phone: Laboratory - Chemistry and C hemistry - challengeon 07-29-2022 Bilirubin Ql (U) Negative [facility] Work Phone: Glucose Ql (U) Negative [facility] Work Phone: Ketones Ql (U) Small (15+) [facility] Work Phone: pH (U) 6.0 [pH] [facility] Work Phone: Specific gravity (U) [Rel density] 1.030 [facility] Work Phone: Urobilinogen (U) [Mass/Vol] Negative [facility] Work Phone: Laboratory - Hematology and Cell countson 07-29-2022 Hemoglobin Ql (U) Hemolyzed [facility] Work Phone: Laboratory - Specimen inform ationon 07-29-2022 Clarity (U) Cloudy [facility] Work Phone: Color (U) KEYANA [facility] Work Phone: Laboratory - Urinalysison Nitrite Ql (U) Negative [facility] Work Phone: Protein Ql (U) Negative [facility] Work Phone: Mucus LM Ql (Urine sed)on Mucus Ql (Urine sed) 0 SEEN /hpf [facility] Work Phone: Nitrite Test strip Ql (U)on 07-29-2022 Nitrite Ql (U) Negative Negative [facility] Work Phone: No Panel Informationon 07-29 Urine Leukocytes Positive [facility] Work Phone: Urine Non-Hemolyzed Blood Large [facility] Work Phone: Protein Test strip Ql (U)on 07-29-2022 Protein Ql (U) 100 mg/dl Negative [facility] Work Phone: Squamous epithelial cells de tection in urine sediment by light microscopyon 07-29-2022 Epithelial cells.squamous LM Ql (Urine sed) 0-5 SEEN /hpf 5-10 [facility] Work Phone: Urine blood detectionon RBC Ql (U) 250 /ul Negative [facility] Work Phone: RBC Ql (U) 50-100 SEEN /hpf 0-5 [facility] Work Phone: Urine clarityon 07-29-2022 Clarity (U) Cloudy Clear [facility] Work Phone: Urine color determinationon 07-29-2022 Color (U) Yellow Yellow [facility] Work Phone: Urine glucose detectionon Glucose Ql (U) Normal mg/dl Normal [facility] Work Phone: Urine leukocyte esterase det ection by dipstickon 07-29-2022 Leukocyte esterase Test strip Ql (U) 500 /ul Negative [facility] Work Phone: Urine pHon 07-29-2022 pH (U) 5.0 [pH] 5.0 - 8.0 [facility] Work Phone: Urine sediment bacteria coun t by microscopy (number/high power field)on 07-29-2022 Bacteria LM.HPF (Urine sed) [#/Area] 2 /[HPF] None Seen [facility] Work Phone: Urine specific gravity measu rementon 07-29-2022 Specific gravity (U) [Rel density] 1.025 1.002-1.030 [facility] Work Phone: Urobilinogen Auto test strip Ql (U)on 07-29-2022 Urobilinogen Ql (U) Normal mg/dl Normal [facility] Work Phone: Culture, urineon 03-13-2022 Bacteria identified Cx Nom (U) Presumptive E. coli [facility] Work Phone: Bacteria identified Cx Nom (U) Positive [facility] Work Phone: Culture, urine Bacteria identified Cx Nom (U) Escherichia coli [facility] Work Phone: Vital Signs Date Time Vital Sign Value Performing Clinician Faci lity 05-30-2025 16:07-0400 Body temperature 97.8 [degF] Dr. Jacquie Coleman MD Work Phone: [facility] 05-30-2025 16:07-0400 Diastolic blood pressure 54 mm[Hg] Dr. Jacquie Coleman MD Work Phone: [facility] 05-30-2025 16:07-0400 Heart rate 55 /min Dr. Jacquie Coleman MD Work Phone: [facility] 05-30-2025 16:07-0400 Respiratory rate 15 /min Dr. Jacquie Coleman MD Work Phone: [facility] 05-30-2025 16:07-0400 SaO2% (BldA) [Mass fraction] 95 % Dr. Jacquie Coleman MD Work Phone: [facility] 05-30-2025 16:07-0400 Systolic blood pressure 111 mm[Hg] Dr. Jacquie Coleman MD Work Phone: [facility] 05-30-2025 14:58-0400 Inhaled oxygen flow rate 3 L/min Dr. Jacquie Coleman MD Work Phone: [facility] 05-30-2025 10:56-0400 Body height 157.[address] Jacquie Coleman MD Work Phone: [facility] 05-30-2025 10:56-0400 Body mass index (BMI) [Ratio] 30.4 kg/m2 Dr. Jacquie Coleman MD Work Phone: [facility] 05-30-2025 10:56-0400 Body weight 75.[address] Jacquie Coleman MD Work Phone: [facility] 05-05-2025 23:26-0400 Body temperature 98.1 [degF] Dr. Jacquie Coleman MD Work Phone: [facility] 05-05-2025 23:26-0400 Diastolic blood pressure 64 mm[Hg] Dr. Jacquie Coleman MD Work Phone: [facility] 05-05-2025 23:26-0400 Heart rate 79 /min Dr. Jacquie Coleman MD Work Phone: [facility] 05-05-2025 23:26-0400 Respiratory rate 18 /min Dr. Jacquie Coleman MD Work Phone: [facility] 05-05-2025 23:26-0400 SaO2% (BldA) [Mass fraction] 97 % Dr. Jacquie Coleman MD Work Phone: [facility] 05-05-2025 23:26-0400 Systolic blood pressure 122 mm[Hg] Dr. Jacquie Coleman MD Work Phone: 9(213)761-719006 [place] [address] 05-05-2025 22:36-0400 Inhaled oxygen flow rate 2 L/min Dr. Jacquie Coleman MD Work Phone: 7(361)824-408300 [place] [address] 05-05-2025 19:15-0400 Body height 157.[address] Jacquie Coleman MD Work Phone: [facility] 05-05-2025 19:15-0400 Body mass index (BMI) [Ratio] 31.8 kg/m2 Dr. Jacquie Coleman MD Work Phone: [facility] 05-05-2025 19:15-0400 Body weight 79.[address] Jacquie Coleman MD Work Phone: [facility] 03-25-2025 08:01-0400 Body mass index (BMI) [Ratio] 30.9 kg/m2 Dr. Jacquie Coleman MD Work Phone: [facility] 03-25-2025 08:01-0400 Body weight 76.[address] Jacquie Coleman MD Work Phone: [facility] 03-25-2025 08:01-0400 Diastolic blood pressure 77 mm[Hg] Dr. Jacquie Coleman MD Work Phone: [facility] 03-25-2025 08:01-0400 Heart rate 58 /min Dr. Jacquie Coleman MD Work Phone: [facility] 03-25-2025 08:01-0400 Respiratory rate 18 /min Dr. Jacquie Coleman MD Work Phone: [facility] 03-25-2025 08:01-0400 Systolic blood pressure 141 mm[Hg] Dr. Jacquie Coleman MD Work Phone: [facility] 03-18-2025 02:08-0400 Body temperature 98.2 [degF] Dr. Jacquie Coleman MD Work Phone: [facility] 03-18-2025 02:08-0400 Diastolic blood pressure 72 mm[Hg] Dr. Jacquie Coleman MD Work Phone: [facility] 03-18-2025 02:08-0400 Heart rate 86 /min Dr. Jacquie Coleman MD Work Phone: [facility] 03-18-2025 02:08-0400 Respiratory rate 18 /min Dr. Jacquie Coleman MD Work Phone: [facility] 03-18-2025 02:08-0400 SaO2% (BldA) [Mass fraction] 98 % Dr. Jacquie Coleman MD Work Phone: [facility] 03-18-2025 02:08-0400 Systolic blood pressure 144 mm[Hg] Dr. Jacquie Coleman MD Work Phone: [facility] 03-17-2025 23:23-0400 Body mass index (BMI) [Ratio] 32.3 kg/m2 Dr. Jacquie Coleman MD Work Phone: [facility] 03-17-2025 23:23-0400 Body weight 80.[address] Jacquie Coleman MD Work Phone: [facility] 03-17-2025 04:00-0400 Body temperature 98.2 [degF] Dr. Jacquie Coleman MD Work Phone: [facility] 03-17-2025 04:00-0400 Diastolic blood pressure 59 mm[Hg] Dr. Jacquie Coleman MD Work Phone: [facility] 03-17-2025 04:00-0400 Heart rate 74 /min Dr. Jacquie Coleman MD Work Phone: [facility] 03-17-2025 04:00-0400 Respiratory rate 18 /min Dr. Jacquie Coleman MD Work Phone: [facility] 03-17-2025 04:00-0400 SaO2% (BldA) [Mass fraction] 96 % Dr. Jacquie Coleman MD Work Phone: [facility] 03-17-2025 04:00-0400 Systolic blood pressure 107 mm[Hg] Dr. Jacquie Coleman MD Work Phone: [facility] 03-17-2025 02:45-0400 Inhaled oxygen flow rate 6 L/min Dr. Jacquie Coleman MD Work Phone: [facility] 03-17-2025 01:40-0400 Body height 157.[address] Jacquie Coleman MD Work Phone: [facility] 03-17-2025 01:40-0400 Body mass index (BMI) [Ratio] 31.8 kg/m2 Dr. Jacquie Coleman MD Work Phone: [facility] 03-17-2025 01:40-0400 Body weight 78.[address] Jacquie Coleman MD Work Phone: [facility] 02-23-2025 12:56-0400 Body height 157.[address] Jacquie Coleman MD Work Phone: [facility] 02-23-2025 12:56-0400 Body mass index (BMI) [Ratio] 31.1 kg/m2 Dr. Jacquie Coleman MD Work Phone: [facility] 02-23-2025 12:56-0400 Body weight 77.[address] Jacquie Coleman MD Work Phone: 8(954)777-981000 [place] [address] 02-23-2025 12:56-0400 Diastolic blood pressure 86 mm[Hg] Dr. Jacquie Coleman MD Work Phone: 2(563)462-700700 [place] [address] 02-23-2025 12:56-0400 Heart rate 89 /min Dr. Jacquie Coleman MD Work Phone: 9(029)537-018906 [place] [address] 02-23-2025 12:56-0400 Respiratory rate 16 /min Dr. Jacquie Coleman MD Work Phone: 0(074)572-416500 [place] [address] 02-23-2025 12:56-0400 SaO2% (BldA) [Mass fraction] 96 % Dr. Jacquie Coleman MD Work Phone: 4(559)960-251406 [place] [address] 02-23-2025 12:56-0400 Systolic blood pressure 156 mm[Hg] Dr. Jacquie Coleman MD Work Phone: [facility] 12-31-2024 14:58-0500 Body temperature 98 [degF] Dr. Jacquie Coleman MD Work Phone: [facility] 12-31-2024 14:58-0500 Diastolic blood pressure 57 mm[Hg] Dr. Jacquie Coleman MD Work Phone: [facility] 12-31-2024 14:58-0500 Heart rate 65 /min Dr. Jacquie Coleman MD Work Phone: [facility] 12-31-2024 14:58-0500 Respiratory rate 16 /min Dr. Jacquie Coleman MD Work Phone: [facility] 12-31-2024 14:58-0500 SaO2% (BldA) [Mass fraction] 95 % Dr. Jacquie Coleman MD Work Phone: [facility] 12-31-2024 14:58-0500 Systolic blood pressure 121 mm[Hg] Dr. Jacquie Coleman MD Work Phone: [facility] 12-31-2024 00:13-0500 Body mass index (BMI) [Ratio] 31.4 kg/m2 Dr. Jacquie Coleman MD Work Phone: [facility] 12-31-2024 00:13-0500 Body weight 78.[address] Jacquie Coleman MD Work Phone: [facility] 11-19-2023 19:31-0500 Diastolic blood pressure 66 mm[Hg] [facility] 11-19-2023 19:31-0500 Heart rate 87 /min [facility] 11-19-2023 19:31-0500 Respiratory rate 16 /min [facility] 11-19-2023 19:31-0500 SaO2% (BldA) [Mass fraction] 96 % [facility] 11-19-2023 19:31-0500 Systolic blood pressure 137 mm[Hg] [facility] 11-19-2023 16:01-0500 Body height 157.[address] [facility] 11-19-2023 16:01-0500 Body mass index (BMI) [Ratio] 30.7 kg/m2 [facility] 11-19-2023 16:01-0500 Body temperature 97.3 [degF] [facility] 11-19-2023 16:01-0500 Body weight 76.[address] [facility] 07-29-2022 13:21-0400 Body height 157.[address] Jacquie Coleman Work Phone: [facility] Work Phone: 07-29-2022 13:21-0400 Body mass index (BMI) [Ratio] 31.1 kg/m2 Dr. Jacquie Coleman Work Phone: [facility] Work Phone: 07-29-2022 13:21-0400 Body temperature 98.7 [degF] Dr. Jacquie Coleman Work Phone: [facility] Work Phone: 07-29-2022 13:21-0400 Body weight 77.[address] Jacquie Coleman Work Phone: [facility] Work Phone: 07-29-2022 13:21-0400 Diastolic blood pressure 64 mm[Hg] Dr. Jacquie Coleman Work Phone: [facility] Work Phone: 07-29-2022 13:21-0400 Heart rate 70 /min Dr. Jacquie Coleman Work Phone: [facility] Work Phone: 07-29-2022 13:21-0400 Respiratory rate 14 /min Dr. Jacquie Coleman Work Phone: [facility] Work Phone: 07-29-2022 13:21-0400 SaO2% (BldA) [Mass fraction] 98 % Dr. Jacquie Coleamn Work Phone: [facility] Work Phone: 07-29-2022 13:21-0400 Systolic blood pressure 122 mm[Hg] Dr. Jacquie Coleman Work Phone: [facility] Work Phone: Encounters Encounter Date Encounter Type Care Provider Facility Start: 05-30-2025 End: 05-30-2025 Emergency department patient visit Dr. Jacquie Coleman MD Work Phone: -Emergency Department Work Phone: Start: 05-05-2025 End: 05-05-2025 Emergency department patient visit Dr. Jacquie Coleman MD Work Phone: -Emergency Department Work Phone: Start: 03-25-2025 End: 03-25-2025 Patient encounter procedure Brittney CORDOVA -[facility] Work Phone: Start: 03-25-2025 End: 03-25-2025 ambulatory [facility] Start: 03-17-2025 End: 03-18-2025 Emergency department patient visit Dr. Dwight Brown-Tamica HATCH -Emergency Department Work Phone: Start: 03-16-2025 End: 03-17-2025 Emergency department patient visit Dr. Jacquie Coleman MD Work Phone: -Emergency Department Work Phone: Start: 03-07-2025 ambulatory [facility]: [facility] Start: 03-07-2025 Non-patient / Non-visit Dr. Felicitas CAN -[facility] Start: 03-07-2025 End: 03-07-[address] Jacquie Coleman MD Work Phone: [facility] Work Phone: Start: 03-07-2025 End: 03-07-[address] Jozef Pena MD -Cardiovascular Services Work Phone: Start: 03-07-2025 End: 03-07-2025 ambulatory [facility] Facility:[facility] Start: 02-23-2025 End: 02-23-[address] Jozef Pena MD -[facility] Work Phone: Start: 02-23-2025 End: 02-23-2025 ambulatory [facility] Start: 01-11-2025 End: 01-11-[address] Jacquie Coleman MD -[facility] Start: 01-11-2025 End: 01-11-2025 ambulatory [facility] Facility:[facility] Start: 12-31-2024 Non-patient / Non-visit Dr. Elisabet Fishman MD -[facility] Work Phone: Start: 12-31-2024 ambulatory Jozef Pena Facility:[facility] Start: 12-31-2024 Non-patient / Non-visit Dr. Felicitas CAN -[facility] Start: 12-30-2024 End: 12-31-2024 ambulatory Edda Langston Facility:[facility] Start: 12-30-2024 End: 12-31-2024 Evaluation and management of inpatient Dr. Elisabet Fishman MD -Progressive Care Unit Work Phone: Start: 06-15-2024 End: 06-15-2024 ambulatory Jacquie Coleman Facility:[facility] Start: 11-27-2023 End: 11-27-2023 ambulatory [facility] Work Phone: Start: 11-27-2023 End: 11-27-2023 Patient encounter procedure [facility] [place] [facility] Start: 11-19-2023 End: 11-19-2023 Emergency department patient visit [facility]-Emergency Department Work Phone: Start: 09-22-2023 End: 09-22-2023 ambulatory [facility] Work Phone: Start: 09-22-2023 End: 09-22-[address] [facility] [facility] Start: 03-24-2023 End: 03-24-2023 ambulatory [facility] Work Phone: Start: 03-24-2023 End: 03-24-2023 Patient encounter procedure [facility] Start: 09-17-2022 End: 09-17-[address] Jacquie Coleman Work Phone: [facility] Work Phone: Start: 09-17-2022 End: 09-17-[address] Jacquie Coleman Work Phone: [facility]-Laboratory, [place] RODRIGO Start: 07-29-2022 End: 07-29-[address] Jacquie Coleman Work Phone: [facility] Work Phone: Start: 07-29-2022 End: 07-29-[address] Jacquie Coleman Work Phone: [facility]-Laboratory, Specimen Start: 07-29-2022 End: 07-29-[address] Jacquie Coleman Work Phone: [facility] Start: 03-13-2022 End: 03-13-[address] Jacquie Coleman Work Phone: [facility]-Laboratory, Specimen Start: 01-02-2022 End: 01-02-[address] Jacquie Coleman Work Phone: [facility]-Outpatient Breast Imaging Start: 12-24-2021 Non-patient / Non-visit Dr. Shiraz Coleman Work Phone: [facility] Start: 12-24-2021 End: 12-24-[address] Jacquie Coleman Work Phone: [facility]-Cardiovascula r Services Procedures Date Procedure Procedure Detail Performing Clinician Start: 05-30-2025 X-ray of chest, PA a nd lateral views Dr. Jacquie Coleman MD Work Phone: Start: 05-30-[address] Jacquie Coleman MD Work Phone: Start: 05-05-2025 X-ray of chest, PA a nd lateral views Dr. Jacquie Coleman MD Work Phone: Start: 05-05-[address] Jacquie Coleman MD Work Phone: Start: 03-17-[address] Jacquie Coleman MD Work Phone: Start: 03-17-2025 Plain chest X-ray Dr. Babak Coleman MD Work Phone: Start: 03-07-2025 Cardiovascular stres s test using pharmacologic stress agent Dr. Jacquie Coleman MD Work Phone: Start: 02-23-2025 Evaluation of diagno stic study results Dr. Jacquie Coleman MD Work Phone: Start: 01-11-2025 Measurement of renal function Dr. Jacquie Coleman MD Work Phone: Comment on above: GFR Calc Start: 12-31-[address] Jacquie Coleman MD Work Phone: Start: 12-31-2024 Sars-cov-2 Dr. Jacquie Coleman MD Work Phone: Start: 12-30-2024 CT angiography of ch est with contrast Dr. Jacquie Coleman MD Work Phone: Start: 12-30-2024 Plain chest X-ray Dr. Babak Coleman MD Work Phone: Start: 11-19-2023 Measurement of occul t blood in stool specimen using immunoassay Start: 03-13-[address] Yari Coleman Work Phone: Start: 01-02-[address] Jacquie Coleman Work Phone: Start: 01-02-2022 Bilateral mammography Isis Coleman Work Phone: Urine culture Dr. Jacquie govea Work Phone: Plan of Treatment Date Care Activity Detail Author Start: 08-24-2025 ambulatory Ambulatory Facility:[facility] Start: 05-30-2025 Oxygen therapy [facility] Start: 05-30-2025 End: 05-30-2025 [facility] Start: 05-30-2025 End: 05-30-2025 [facility] Start: 05-05-2025 [facility] Start: 05-05-2025 [facility] Start: 05-05-2025 [facility] Start: 03-25-2025 Evaluation of diagno stic study results [facility] Start: 03-18-2025 [facility] Start: 03-17-2025 End: 03-17-2025 [facility] Start: 03-17-2025 [facility] Start: 12-31-2024 Patient discharge [facility] Start: 12-31-2024 Following clinical p athway protocol [facility] Start: 12-31-2024 Assessment of risk o f venous thromboembolism [facility] Start: 12-31-2024 Insertion of cathete r into peripheral vein [facility] Start: 12-31-2024 Introduction of urin karlos catheter [facility] Start: 12-31-2024 Measuring intake and output [facility] Start: 12-31-2024 Oxygen therapy [facility] Start: 12-31-2024 Providing care accor ding to standard [facility] Start: 12-31-2024 Provision of activit y privileges [facility] Start: 12-31-2024 Referral to service [facility] Start: 12-31-2024 [facility] Start: 12-30-2024 Admission procedure [facility] Start: 11-19-2023 [facility] Patient Education [facility] Work Phone: Patient referral [facility] Work Phone: Troponin T.cardiac [Mass/volume] in Serum or Plasma by High sensitivity method [facility] Troponin T.cardiac [Mass/volume] in Serum or Plasma by High sensitivity method [facility] Payers Date Payer Category Payer Medicare [id number] 2024 Self-pay [id number] 2024 Unknown [id number] Unknown [id number] 2.16.8 [id number] Unknown [id number] 2.16.8 [id number] Unknown [id number] 2.16.8 [id number] Unknown [id number] 2.16.8 [id number] Unknown [id number] 2.16.8 [id number] Unknown [id number] 2.16.8 [id number] Unknown [id number] 2.16.8 [id number] Unknown [id number] 2.16.8 [id number] Unknown [id number] 2.16.8 [id number] Unknown [id number] 2.16.8 [id number] Unknown [id number] 2.16.8 [id number] Unknown [id number] 2.16.8 [id number] Unknown [id number] 2.16.8 [id number] Unknown [id number] 2.16.8 [id number] Social History Date Type Detail Facility Start: 08-07-2021 End: 11-19-2023 Tobacco smoking status ALIS Unknown if ever smoked [facility] Start: 01-25-2020 None [facility] Start: 01-25-2020 Spouse/ Signif icant Other [facility] Start: 1940 Sex Assigned At Female W [facility] Start: 12-30-2024 End: 05-30-2025 Tobacco smoking status NHIS Never smoked tobacco (finding) [facility] Start: 03-10-2025 End: 03-17-2025 Sex Female (finding) [facility] Goals Date Patient Goal Desired Activity /State Functional Status Date Assessment Result Facility 12-31-2024 Functional status Chair [facility] Work Phone: Mental Status Date Assessment Result Facility 05-30-2025 Cognitive function Awake;Alert;A ppropriate;Follow s Commands [facility] Work Phone: 05-30-2025 Cognitive function Arousable To Voice/Nam e [facility] Work Phone: 05-05-2025 Cognitive function Awake;Alert;A ppropriate;Follow s Commands [facility] Work Phone: 05-05-2025 Cognitive function Arousable To Voice/Nam e [facility] Work Phone: 03-17-2025 Cognitive function Level Of Cons ciousness Awake;Alert;Appropriate;Follow s Commands [facility] Work Phone: 03-17-2025 Cognitive function Awake;Alert;A ppropriate;Follow s Commands [facility] Work Phone: 03-17-2025 Cognitive function Arousable To Voice/Nam e [facility] Work Phone: 12-31-2024 Cognitive function Voice/Name [facility] Work Phone: Clinical Notes 11-19-2023 to 05-30-2025 Note Date & Type Note Facility 05-30-2025 Radiology Diagnostic study note [facility] Imaging Services [address] [place], [place] [address] Chest PA and Lateral MR#: [id number] Acct: [id number] Name: AL LEWIS Rep #: [id number] : 1940 F 84 From: Pet er Peer DO PCP: Dr. Jacquie Coleman MD Status: PRE ER Study:Chest PA and Lateral Date of Exam: 05/30/25 Exam# [id number] Ordering Dr: Thor Christy PROCEDURE: CHEST PA AND LATERAL 05/30/2025 REASON FOR EXAM: CHEST PAIN TECHNIQUE: CHEST PA AND LATERAL COMPARISON: Chest radiographs May 05, 2025 FINDINGS: Hardware: None. Heart: Normal size. Mediastinum: Unremarkable contour Lungs: Clear Bones: No aggressive process RAD/Chest PA and Lateral IMPRESSION: Negative for acute process. No significant interval change. Reading [facility] CC: Dr. Jacquie Coleman MD; ED PHYSICIAN PROVIDER ~ Cartridge Feeder: Signed [facility] 05-05-2025 Radiology Diagnostic study note [facility] Imaging Services [address] [place], [place] [id number] Chest PA and Lateral MR#: [id number] Acct: [id number] Name: AL LEWIS Rep #: [id number] : 1940 F 84 From: Radha Duarte MD PCP: Dr. Jacquie Coleman MD Status: REG ER Study:Chest PA and Lateral Date of Exam: 05/05/25 Exam# [id number] Ordering Dr: Dwight Gray DO PROCEDURE: CHEST PA AND LATERAL 05/05/2025 REASON FOR EXAM: CHEST PAIN TECHNIQUE: Frontal and lateral views of the chest. COMPARISON: Chest radiograph 03/17/2025. FINDINGS: Hardware: None. Heart: Stable mild cardiomegaly with pulmonary vascular congestion. Mediastinum: The mediastinal contour is stable. Lungs: No focal consolidation, pleural effusion or pneumothorax. Bones: Degenerative changes are identified within the thoracic spine. RAD/Chest PA and Lateral IMPRESSION: Stable mild cardiomegaly. Reading Location: [facility] CC: Dr. Dwight Patricia DO; Dr. Jacquie Coleman MD ~ Cartridge Feeder: Signed [facility] 02-23-2025 Evaluation note Diagnosis Onset Date Resolution Atrial fibrillation with RVR acute February 23, 2025 12:53pm Hypercholesterolemia chronic Apr2024 12:53pm Hypertension chronic February 23, 12:53pm Atrial fibrillation with RVR acute March 25, 2025 9:14am Hypercholesterolemia chronic March 25, 2025 9:14am Hypertension chronic March 25 9:14am [facility] Work Phone: 1(824) 642-968402-07-2025 [facility] Medical Records Department [address] [place] [address] Discharge Summary 12/31/24 1724 MR#: [id number] Acct: [id number] Name: AL LEWIS Rep #: [id number] : 1940 84 From: Elisabet Fishman MD PCP: Dr. Jacquie Coleman MD Status:ADM KARLA Location: [place] [address] Providers Date of Admission: 12/30/24 Date of Discharge: 12/31/24 Primary Care Physician: Dr. Jacquie Coleman MD Reason For Visit: PAF RVR Diagnosis Discharge Diagnosis (1) Atrial fibrillation with RVR: Status: Acute Code(s): I48.91 - Unspecified atrial fibrillation Medications at Discharge Home Medications simvastatin 10 mg tablet 10 mg PO QHS 06/24/16 pantoprazole 40 mg tablet,delayed release (Protonix) 40 mg PO DAILY 12/30/24 apixaban 5 mg tablet (Eliquis) 5 mg PO BID #60 tabs 12/31/24 diltiazem HCl 120 mg capsule,extended release 24 hr 120 mg PO BID #60 caps 12/31/24 furosemide 20 mg tablet (Lasix) 20 mg PO DAILY #30 tabs 12/31/24 potassium chloride 10 mEq tablet,extended release 10 meq PO DAILY #30 tabs 12/31/24 sennosides 8.6 mg tablet (Senokot) 8.6 mg PO DAILY 12/31/24 Hospital Course Operations None Procedures 2-D Echocardiogram Summary of Care Provided Minutes Spent on Discharge: 45 Hospital Course: Patient is an 84-year-old female with a past medical history as outlined was admitted through the ED on 12/30/2024 with a complaint of headache and tachycardia. She said she had checked her heart rate and noticed that it was elevated at 150. She had mild palpitations but denied any shortness of breath, lightheadedness or any chest discomfort. Her tachycardia was persistent so she came into the ED. In the ED she was found to be in A-fib with RVR. Her heart rate was 115 in the ED. She was not known to have A-fib. Chest x-ray showed no acute cardiopulmonary findings and CT of the chest showed no evidence of PE and showed diffuse groundglass opacities possibly representing edema versus infection and she had a large mediastinal lymph nodes. TSH was 4.4 with normal free T4. BNP was slightly elevated at 379.8. Magnesium was 2.2 and potassium was within normal limits. She was given a bolus of Cardizem and EKG subsequently showed conversion of A-fib to normal sinus rhythm. She was admitted and managed for new onset A-fib. She was started on p.o. Cardizem 120 mg twice daily. She was placed on Eliquis 5 mg twice daily for stroke prophylaxis. A-fib did not recur during this admission. She had 2D echo which showed EF of 70% with stage I diastolic dysfunction and no regional wall motion abnormalities noted. She remained stable and was discharged home on 12/31/2024 on p.o. Cardizem 120 mg twice daily as well as p.o. Eliquis 5 mg twice daily. She was also discharged on p.o. Lasix 20 mg daily. She is to follow-up with her primary care doctor within 1 to 2 weeks and was referred to cardiology to follow-up for the A-fib on outpatient basis. Of note her home BP meds of amlodipine and bisoprolol hydrochlorothiazide were discontinued. She was also discharged on p.o. potassium chloride 10 meq daily o/a of her being placed on lasix. Patient seen and examined prior to discharge. She felt well and had no complaints. She had an uneventful night. Review of systems otherwise negative. Labs and vitals reviewed. Home medication reviewed and reconciled. Physical Exam Const alert, oriented x3 and no apparent distress General Appearance: cooperative and comfortable Orientation / Consciousness: awake Exam Limitations: no limitations HEENT normocephalic, head/scalp atraumatic, hearing grossly normal bilaterally, moist oral mucous membranes and oropharynx normal Mouth: oral and palatal mucosa normal Eyes PERRL, EOMs intact bilaterally and conjunctivae normal Neck no lymphadenopathy, supple and no JVD Resp normal respiratory effort, no retractions, no use of accessory muscles and clear to auscultation bilaterally Cardio regular rate, regular rhythm, S1 normal heart sound, S2 normal heart sound, no murmurs and no rub GI normal to inspection, nondistended, normoactive bowel sounds, soft to palpation, non-tender and non- distended Extremity normal to inspection, full ROM and no clubbing, cyanosis or edema Skin no rashes or lesions noted and no wounds Neuro oriented x3, CN's II-XII intact bilaterally, moves all extremities and no focal motor deficits Sensorium / Orientation: awake and alert Motor Exam: strength 5/5 throughout Psych affect normal Weight / BMI Weight Weight: 172 lb 2.896 oz Body Mass Index (BMI) 31.4 ABG / Lab / Microbiology Data 12/31/24 02:41 12/31/24 02:41 Laboratory: Laboratory Results - last 24 hr 12/30/24 20:30: WBC 8.7, RBC 4.94, Hgb 14.8, Hct 44.2, MCV 89.5, MCH 30.0, MCHC 33.5, RDW Std Deviation 44.7 H, RDW Coeff of Bob 13.7, Plt Count 241, MPV 10.3, (more content not included)...[facility]02-07-2025 Evaluation note* Diagnosis Onset Date Resolution Status Admit Date Atrial fibrillation with RVR acute December 30, 2024 11:21pm Atrial fibrillation with RVR acute February 23, 2025 12:53pm Hypercholesterolemia chronic Apri l 2024 12:53pm Hypertension chronic February 23, 2 025 12:53pm [facility] Work Phone: 1(222) 810-547112-27-2023 Discharge summary Author Sebastian Meyer [facility] November 19, 2023 8:41pm Note Date/Time November 19, 2023 5:37pm [facility] Medical Records Department [address] [place] [address] Emergency Department Summary 11/19/23 MR#: [id number] Acct: [id number] Name: AL LEWIS Rep #:[id number] : [id number] 83 From: Sebastian Meyer MD PCP: Dr. Jacquie Coleman MD Status:REG ER Location: ED HPI <ART Rsoenberg - Last Filed: 11/19/23 19:02> HPI - GI History of Present Illness Chief Complaint: GI Bleed Narrative Narrative: 83-year-old female with PMH of HTN, HLD presents with epigastric discomfort thatstarted last evening and then she developed loose black bowel movements overnight approximately 10 times total. She states it is a small volume each time. She has no nausea or vomiting. She denies history of GI bleed. She is taking Bactrim for UTI. No Pepto-Bismol. No history of colonoscopy. She is onaspirin 81 mg, no blood thinners. 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 Home Medications amlodipine 10 mg tablet 10 mg PO DAILY 06/24/16 [History Last Taken 01/24/20] aspirin 81 mg chewable tablet 81 mg PO DAILY 06/24/16 [History Last Taken 01/24/20] simvastatin 10 mg tablet 10 mg PO QHS 06/24/16 [History Last Taken 01/24/20] bisoprolol 2.5 mg-hydrochlorothiazide 6.25 mg tablet 1 tab PO DAILY heart 01/25/20 [History Last Taken 01/24/20] naproxen sodium 220 mg tablet 220 mg PO BID pain 01/25/20 [History Last Taken 01/25/20] omeprazole 40 mg capsule,delayed release 40 mg PO DAILY ##30 01/25/20 [Rx Last Taken Unknown] sennosides 8.6 mg tablet 2 tab PO DAILY constipation 01/25/20 [History Last Taken 01/24/20] pantoprazole 40 mg tablet,delayed release (Protonix) 40 mg PO BID 30 days #60 tabs 11/19/23 [Rx Last Taken Unknown] Allergy/AdvReac Type Severity Reaction Status Date / Time morphine Allergy Anaphylaxis Verified 11/19/23 15:59 niacin Allergy Rash Verified 11/19/23 15:59 procaine HCl [From Novocain] Allergy Anaphylaxis Verified 11/19/23 15:59 tetracycline Allergy Unknown Verified 11/19/23 15:59 Family History Father Cancer Hypertension Respiratory disease Mother Diabetes Epilepsy Heart disease Surgical History History of appendectomy History of cataract surgery History of total hysterectomy Social History Smoking Status: Never smoker alcohol intake: never substance use type: does not use additional social history: Does Take Aspirin Does Not Take Ibuprofen ROS <ART Rosenberg - Last Filed: 11/19/23 19:02> ROS ED ROS Narrative Constitutional: Negative for fever, chills, malaise. CVS: Negative for palpitations, chest pain, syncope. Respiratory: Negative for shortness of breath, cough. GI: Positive for abdominal pain, melena. Negative for nausea, vomiting, hematochezia. EXAM <ART Rosenberg - Last Filed: 11/19/23 19:02> Physical Exam Narrative Exam Narrative: CONST: Patient sitting in no acute distress. EYES: Normal inspection. NECK: Normal inspection. RESP: No respiratory distress, CTAB. CVS: Regular rate and rhythm, no murmur, no gallop. ABD: Soft and nontender, no guarding or rebound, nondistended. NITIN: Small nontender nonthrombosed external hemorrhoid, thin black stool in rectal vault. No active bleeding. SKIN: Color normal, no rash, warm, dry, intact. EXTREMITIES: Normal appearance, no pedal edema. NEURO: Oriented x4. PSYCH: Normal affect. Const Vital Signs: 11/19/23 16:01 11/19/23 19:31 11/19/23 19:31 Temperature 97.3 F L Temperature Source Temporal Pulse Rate 108 H 87 87 Respiratory Rate 18 16 16 Blood Pressure 133/99 H 137/66 H 137/66 H Blood Pressure Mean 110 89 89 Pulse Ox 100 96 96 Oxygen Delivery Method Room Air Room Air <Dr. Sebastian Meyer MD - Last Filed: 11/19/23 20:41> Physical Exam Const Vital Signs: 11/19/23 16:01 11/19/23 19:31 11/19/23 19:31 Temperature 97.3 F L Temperature Source Temporal Pulse Rate 108 H 87 87 Respiratory Rate 18 16 16 Blood Pressure 133/99 H 137/66 H 137/66 H Blood Pressure Mean 110 89 89 Pulse Ox 100 96 96 Oxygen Delivery Method Room Air Room Air [facility] <ART Rosenberg - Last Filed: 11/19/23 19:02> [facility] Narrative Medical decision making narrative: Patient has history of epigastric discomfort and loose melanotic stool. She hashistory of NSAID use for chronic pain. On aspirin 81 mg. No blood thinners. She appears well and nontoxic. Heart rate 108 with otherwise normal vital signs. She has a normal cardiopulmonary exam. Abdomen is soft and nontender. Rectal exam shows black stool which is Hemoccult positive. Hemoglobin is 11.5 down from 14.32 months ago. BUN is 28, creatinine 0.89. Patient's abdominal exam is benign and she currently has no pain so a CT scan is not indicated. I recommended she be admitted due to her age and anemia but she wants to go home to care for her who has multiple medical problems. I discussed risks and she would like to follow-up outpatient. She was given IV Protonix 80 mg andprescribed Protonix 40 twice daily for home. I told her to stop taking Aleve. I provided Dr. Becerril's phone number for follow-up and I also spoke with him to relay her contact information and case. He was agreeable with this plan. Patient was discharged in stable condition. Lab Data Attestation: I reviewed the patient's lab results. Labs: Laboratory Results - last 24 hr 11/19/23 17:25 WBC 9.6 RBC 3.86 L Hgb 11.5 L Hct 34.5 L MCV 89.4 MCH 29.8 MCHC 33.3 RDW Std Deviation 45.9 H RDW Coeff of Bob 14.2 Plt Count 240 MPV 10.1 Immature Gran % (Auto) 0.300 Neut % (Auto) 56.9 Lymph % (Auto) 32.0 [place] % (Auto) 9.3 Eos % (Auto) 0.9 Baso % (Auto) 0.6 Absolute Neuts (auto) 5.5 Absolute Lymphs (auto) 3.08 Nucleated RBC % 0 Sodium 135 L Potassium 4.1 Chloride 104 Carbon Dioxide 23.0 Anion Gap 8 BUN 28 H Creatinine 0.89 Estim Creat Clear Calc 37.88 Est GFR (MDRD) Af Amer 78 Est GFR (MDRD) Non-Af 65 BUN/Creatinine Ratio 31.6 H Glucose 121 H Calcium 9.3 Total Bilirubin 0.40 AST 20 ALT 27 Alkaline Phosphatase 77 Troponin I High Sens 21 Total Protein 7.4 Albumin 3.6 Globulin 3.8 Albumin/Globulin Ratio 0.9 EKG Initial EKG: Attestation: I personally reviewed and interpreted this EKG as follows: Interpretation: Sinus Rhythm and No Acute Injury Pattern Comments: Normal sinus rhythm at [address] changes <Dr. Sebastian Meyer MD - Last Filed: 11/19/23 20:41> [facility] Lab Data Labs: Laboratory Results - last 24 hr 11/19/23 17:25 WBC 9.6 RBC 3.86 L Hgb 11.5 L Hct 34.5 L MCV 89.4 MCH 29.8 MCHC 33.3 RDW Std Deviation 45.9 H RDW Coeff of Bob 14.2 Plt Count 240 MPV 10.1 Immature Gran % (Auto) 0.300 Neut % (Auto) 56.9 Lymph % (Auto) 32.0 [place] % (Auto) 9.3 Eos % (Auto) 0.9 Baso % (Auto) 0.6 Absolute Neuts (auto) 5.5 Absolute Lymphs (auto) 3.08 Nucleated RBC % 0 Sodium 135 L Potassium 4.1 Chloride 104 Carbon Dioxide 23.0 Anion Gap 8 BUN 28 H Creatinine 0.89 Estim Creat Clear Calc 37.88 Est GFR (MDRD) Af Amer 78 Est GFR (MDRD) Non-Af 65 BUN/Creatinine Ratio 31.6 H Glucose 121 H Calcium 9.3 Total Bilirubin 0.40 AST 20 ALT 27 Alkaline Phosphatase 77 Troponin I High Sens 21 Total Protein 7.4 Albumin 3.6 Globulin 3.8 Albumin/Globulin Ratio 0.9 Management Discussion w/another healthcare provider: Market Research Worker ([facility]) Treatment and Re-Evaluation Comments:: I have personally performed a face to face assessment of the patient and have reviewed the JODI Note. I performed a substantive portion of the visit including all aspects of the following. My garcia findings include: History is patient with melanotic stools for the last day no bright red blood per rectum or nausea/vomiting. She takes NSAIDs twice daily for years for arthritis. No anticoagulants. No abdominal pain. No presyncope or chest discomfort. Exam is well-appearing, abdomen soft nontender nondistended normal bowel sounds present. No tachycardia while at rest here. Medical Decison Making Labs, Hemoccult, type and screen performed but she does not require transfusion right now. I interpreted the labs. Basically consistent with upper GI bleeding but she is not anemic enough to require emergent transfusion. We offered admission for GI consultation but she declines and prefers to go home. I am okay with this. We discussed reasons to return. In the meantime we will put her on twice daily PPI, have her discontinue all NSAIDs, and follow-up closely as an outpatient with GI if she does not require return to the hospital she is comfortable with that plan. Other additions or changes: [None] Discharge Plan Triage Chief Complaint: GI Bleed ED Midlevel Provider: Analy Aguirre ED Provider: Sebastian Meyer Dx/Rx/DC Orders Clinical Impression: Acute upper GI bleed, ABLA (acute blood loss anemia) Instructions: Anemia, ED Upper GI Bleeding (Stable) Prescriptions: New pantoprazole [Protonix] 40 mg tablet,delayed release (DR/EC) 40 mg PO BID 30 Days Qty: 60 0RF No Action simvastatin 10 MG tablet 10 mg PO QHS amlodipine 10 MG tablet 10 mg PO DAILY aspirin 81 MG tablet,chewable 81 mg PO DAILY sennosides 1 TABLET tablet 2 tab PO DAILY bisoprolol-hydrochlorothiazide 1 EACH tablet 1 tab PO DAILY Patient Comments: pt is currently on the 5-6.25 naproxen sodium 220 MG tablet 220 mg PO BID omeprazole 40 MG capsule,delayed release(DR/EC) 40 mg PO DAILY Qty: 30 0RF Primary Care Provider: Jacquie Coleman Referrals: Jacquie Coleman MD [Primary Care Provider] - Rodolfo Becerril DO [Med Staff - Active Staff] - Activity Restrictions/Additional Instructions: Stop taking Aleve. Start taking pantoprazole twice daily. Call the GI office for follow-up appointment if any symptoms worsen come back to the ER. This includes increased volume of black stools, severe abdominal pain, chest pain, shortness of breath, dizziness or lightheadedness. Disposition Disposition: Home, Self Care What to do if you have Problems For any increased pain, shortness of breath, bleeding, nausea or vomiting, chestpain, or any unexpected problems, contact your Primary Care Provider. Call [facility] ([phone]) or report to the closest Emergency Room. Call 911 if necessary. 11/19/232040 <Electronically signed by Sebastian Meyer MD> Cosigner Signature (if applicable): 11/19/231901 <Electronically signed by Analy CORDOVA> CC: Dr. Jacquie Coleman MD; Rodolfo Friend, DO ~ Signed [facility] Work Phone: Evaluation noteNo assessment information available [facility] Work Phone: Evaluation note* Diagnosis Onset Date Resolution Status Cystitis acute [facility] Work Phone: Hospital Discharge instructions Additional Instructions Stop taking Aleve. Start taking pantoprazole twice daily. Call the GI office for follow-up appointment if any symptoms worsen come back to the ER. This includes increased volume of black stools, severe abdominal pain, chest pain, shortness of breath, dizziness or lightheadedness.[facility] Work Phone: Hospital Discharge instructions Additional Instructions Follow-up with cardiology. Return back to the ED if symptoms change or worsen. Continue your medications.[facility] Work Phone: Hospital Discharge instructionsAdditional Instructions Follow-up with cardiology. Start digoxin tomorrow and continue the same dose of diltiazem and metoprolol. Call cardiology office tomorrow to make an appointment. Return back to the ED if symptoms change or worsen.[facility] Work Phone: Chief Complaint and Reason for Visit Chief Complaint MURMUR, EPISODES OF LOSS OF LEG MUSCLE STRENGTH LEFT BREAST PAIN Chief Complaint CONCERN FOR UTI Reason for Visit Cystitis Chief Complaint GI BLEED Chief Complaint Admit Date PAF RVR December 30, 2024 1 1:21pm PAF RVR December 31, 2024 5 :24pm S/P [facility] 12/31 ([facility] ER) February 23, 2025 1 2:53pm CAD March 07, 2025 7:0 2am Coronary artery disease March 07, 2025 11:03am Reason for Visit Admit Date Atrial fibrillation with RVR December 11:21pm Atrial fibrillation with RVR February 23, 2025 12:53pm Hypercholesterolemia February 23, 2025 12: 53pm Hypertension February 23, 2025 12:5 3pm Chief Complaint Admit Date PAF RVR December 30, 2024 1 1:21pm PAF RVR December 31, 2024 5 :24pm S/P [facility] 12/31 ([facility] ER) February 23, 2025 1 2:53pm CAD March 07, 2025 7:0 2am Coronary artery disease March 07, 2025 11:03am PALPITATIONS March 16, 2025 11: 59pm Chief Complaint Admit Date S/P [facility] 12/31 ([facility] ER) February 23, 2025 1 2:53pm CAD March 07, 2025 7:0 2am Coronary artery disease March 07, 2025 11:03am PALPITATIONS March 16, 2025 11: 59pm PALPITATIONS March 17, 2025 11: 20pm S/P [facility] 03/17March 25, 2025 9:14am palpitations May 05, 2025 7:13 pm Reason for Visit Admit Date Atrial fibrillation with RVR February 23, 2025 12:53pm Hypercholesterolemia February 23, 2025 12: 53pm Hypertension February 23, 2025 12:5 3pm Atrial fibrillation with RVR March 25 9:14am Hypercholesterolemia March 25, 2025 9:14a m Hypertension March 25, 2025 9:14am Chief Complaint Admit Date S/P [facility] 12/31 ([facility] ER) February 23, 2025 1 2:53pm CAD March 07, 2025 7:0 2am Coronary artery disease March 07, 2025 11:03am PALPITATIONS March 16, 2025 11: 59pm PALPITATIONS March 17, 2025 11: 20pm S/P [facility] 03/17March 25, 2025 9:14am palpitations May 05, 2025 7:13 pm palpitations May 30, 2025 10:56 am Family History Relationship Condition Age at Onset Recorded Date/T shiela father Malignant neoplasm Unknown Hypertension Unknown Disorder of respiratory system Unknown mother Diabetes mellitus Unknown Epilepsy Unknown Cardiac disease Unknown Relationship Condition Age at Onset Recorded Date/T shiela father Malignant neoplasm Unknown Hypertension Unknown Disorder of respiratory system Unknown mother Diabetes mellitus Unknown Epilepsy Unknown Cardiac disease Unknown brother Cerebrovascular accident (CVA) Unknown Advance Directives Advance Directive Response Recorded Date/ Time Living Will Yes January 25, 2020 2:21pm Power of Emblem Fuser Tender Yes January 24 2:21pm Advance Directive Response Recorded Date/ Time Living Will No November 19, 2 023 5:31pm Power of Emblem Fuser Tender No November 19, 2023 5:31pm Advance Directive Response Recorded Date/ Time Living Will Yes December 31 1:13am Do you have a Healthcare Power of Emblem Fuser Tender? Yes December 31, 2024 1:13am Name of Medical Power of Emblem Fuser Tender Son December 31, 2024 1:13am Advance Directive Response Recorded Date/ Time Living Will Yes December 31 1:13am Do you have a Healthcare Power of Emblem Fuser Tender? Yes December 31, 2024 1:13am Name of Medical Power of Emblem Fuser Tender Son December 31, 2024 1:13am Do you have a Healthcare Power of Emblem Fuser Tender? Yes March 17, 2025 1:40am Advance Directive Response Recorded Date/ Time Do you have a Healthcare Power of Emblem Fuser Tender? Yes March 17, 2025 1:40am Do you have a Healthcare Power of Emblem Fuser Tender? Yes March 17, 2025 11:31pm Do you have a Healthcare Power of Emblem Fuser Tender? No May 05, 2025 7:25pm Advance Directive Response Recorded Date/ Time Do you have a Healthcare Power of Emblem Fuser Tender? No May 30, 2025 11:56am Do you have a Healthcare Power of Emblem Fuser Tender? Yes March 17, 2025 1:40am Do you have a Healthcare Power of Emblem Fuser Tender? Yes March 17, 2025 11:31pm Do you have a Healthcare Power of Emblem Fuser Tender? No May 05, 2025 7:25pm Summary Purpose Additional Source Comments Goals (unrecognized section and content) Goals may be documented in a n alternate sectionGoals may be documented in an alternate sectionGoals may be documented in an alternate sectionGoals may be documented in an alternate sectionGoals may be documented in an alternate sectionGoals may be documented in an alternate sectionGoals may be documented in an alternate sectionGoals may be documented in an alternate sectionGoals may be documented in an alternate section Care Teams (unrecognized sec tion and content) Team Status: Active Member Role Status Dates Dr. Jacquie Coleman MD Family Provider Active Dr. Jacquie Coleman MD Primary Care Provider Active Team Status: Inactive Member Role Status Dates Dr. Jacquie Coleman MD Primary Care Prov ider, Attending Provider, Referring Provider Active Team Status: Inactive Member Role Status Dates Dr. Jacquie Coleman MD Primary Care Provider Active Dr. Sebastian Meyer MD Emergency Provider Active Team Status: Inactive Member Role Status Dates Dr. Jacquie Coleman MD Primary Care Provider Active Dr. Sebastian Meyer MD Attending Provider, Emergency Provider Active Team Status: Inactive Member Role Status Dates Dr. Jacquie Coleman MD Primary Care Provider, Attendin g Provider Active Team Status: Active Member Role Status Dates Dr. Jacquie Coleman MD Primary Care Provider Active Team Status: Inactive Member Role Status Dates Dr. Jacquie Coleman MD Primary Care Provider Active Start: December 30, 2024 End: December 31, 2024 Dr. Dwight Patricia DO Referring Provider Activ e Start: December 30, 2024 End: December 31, 2024 Dr. Dwight Patricia DO Emergency Provider Activ e Start: December 30, 2024 End: December 31, 2024 Dr. Edda Langston MD Admit Provider Active St art: December 30, 2024 End: December 31, 2024 Dr. Edda Langston MD Other Provider Active St art: December 30, 2024 End: December 31, 2024 Dr. Elisabet Fishman MD Attending Provider Active Start: December 30, 2024 End: December 31, 2024 Dr. Robert Kingsley DO Other Provider Active Start: December 30, 2024 End: December 31, 2024 Team Status: Active Member Role Status Dates Dr. Jacquie Coleman MD Primary Care Provider Active Start: December 31, 2024 Dr. Jozef Pena MD Attending Provider Active S tart: December 31, 2024 Team Status: Active Member Role Status Dates Dr. Jacquie Coleman MD Primary Care Provider Active Start: December 31, 2024 Dr. Dwight Patricia DO Emergency Provider Activ e Start: December 31, 2024 Dr. Edda Langston MD Admit Provider Active St art: December 31, 2024 Dr. Edda Langston MD Other Provider Active St art: December 31, 2024 Dr. Elisabet Fishman MD Attending Provider Active Start: December 31, 2024 Dr. Elisabet Fishman MD Other Provider Active St art: December 31, 2024 Dr. Robert Kingsley DO Other Provider Active Start: December 31, 2024 Team Status: Inactive Member Role Status Dates Dr. Jacquie Coleman MD Primary Care Provider Active Start: January 11, 2025 End: January 11, 2025 Dr. Jacquie Coleman MD Attending Provider Active Start: January 11, 2025 End: January 11, 2025 Team Status: Inactive Member Role Status Dates Dr. Jacquie Coleman MD Primary Care Provider Active Start: February 23, 2025 End: February 23, 2025 Dr. Jacquie Coleman MD Referring Provider Active Start: February 23, 2025 End: February 23, 2025 Dr. Jozef Pena MD Attending Provider Active S tart: February 23, 2025 End: February 23, 2025 Team Status: Inactive Member Role Status Dates Dr. Jacquie Coleman MD Primary Care Provider Active Start: March 07, 2025 End: March 07, 2025 Dr. Jozef Pena MD Attending Provider Active S tart: March 07, 2025 End: March 07, 2025 Dr. Jozef Pena MD Referring Provider Active S tart: March 07, 2025 End: March 07, 2025 Team Status: Active Member Role Status Dates Dr. Jacquie Coleman MD Primary Care Provider Active Start: March 07, 2025 Dr. Jozef Pena MD Attending Provider Active S tart: March 07, 2025 Dr. Jozef Pena MD Referring Provider Active S tart: March 07, 2025 Dr. Jozef Pena MD Other Provider Active Start : March 07, 2025 Team Status: Inactive Member Role Status Dates Dr. Jacquie Coleman MD Primary Care Provider Active Start: March 16, 2025 End: March 17, 2025 Dr. Omid Foley DO Emergency Provider Active Start: March 16, 2025 End: March 17, 2025 Team Status: Inactive Member Role Status Dates Dr. Jacquie Coleman MD Primary Care Provider Active Start: March 16, 2025 End: March 17, 2025 Dr. Omid Foley DO Attending Provider Active Start: March 16, 2025 End: March 17, 2025 Dr. Omid Foley DO Emergency Provider Active Start: March 16, 2025 End: March 17, 2025 Team Status: Inactive Member Role Status Dates Dr. Jacquie Coleman MD Primary Care Provider Active Start: March 17, 2025 End: March 18, 2025 Dr. Dwight Patricia DO Attending Provider Activ e Start: March 17, 2025 End: March 18, 2025 Dr. Dwihgt Patricia DO Emergency Provider Activ e Start: March 17, 2025 End: March 18, 2025 Team Status: Inactive Member Role Status Dates Dr. Jacquie Coleman MD Primary Care Provider Active Start: March 25, 2025 End: March 25, 2025 Dr. Jacqiue Coleman MD Referring Provider Active Start: March 25, 2025 End: March 25, 2025 Brittney Ontiveros PA, PA Attending Provider Active Start: March 25, 2025 End: March 25, 2025 Team Status: Inactive Member Role Status Dates Dr. Jacquie Coleman MD Primary Care Provider Active Start: May 05, 2025 End: May 05, 2025 Dr. Dwight Patricia DO Emergency Provider Activ e Start: May 05, 2025 End: May 05, 2025 Team Status: Active Member Role/Relationship Status Dates Dr. Jacquie Coleman MD Primary Care Provider Active Team Status: Inactive Member Role/Relationship Status Dates Dr. Jacquie Coleman MD Primary Care Provider Active Start: February 23, 2025 End: February 23, 2025 Dr. Jacquie Coleman MD Referring Provider Active Start: February 23, 2025 End: February 23, 2025 Dr. Jozef Pena MD Attending Provider Active S tart: February 23, 2025 End: February 23, 2025 Team Status: Inactive Member Role/Relationship Status Dates Dr. Jacquie Coleman MD Primary Care Provider Active Start: March 07, 2025 End: March 07, 2025 Dr. Jozef Pena MD Attending Provider Active S tart: March 07, 2025 End: March 07, 2025 Dr. Jozef Pena MD Referring Provider Active S tart: March 07, 2025 End: March 07, 2025 Team Status: Active Member Role/Relationship Status Dates Dr. Jacquie Coleman MD Primary Care Provider Active Start: March 07, 2025 Dr. Jozef Pena MD Attending Provider Active S tart: March 07, 2025 Dr. Jozef Pena MD Referring Provider Active S tart: March 07, 2025 Dr. Jozef Pena MD Other Provider Active Start : March 07, 2025 Team Status: Inactive Member Role/Relationship Status Dates Dr. Jacquie Coleman MD Primary Care Provider Active Start: March 16, 2025 End: March 17, 2025 Dr. Omid Foley DO Attending Provider Active Start: March 16, 2025 End: March 17, 2025 Dr. Omid Foley DO Emergency Provider Active Start: March 16, 2025 End: March 17, 2025 Team Status: Inactive Member Role/Relationship Status Dates Dr. Jacquie Coleman MD Primary Care Provider Active Start: March 17, 2025 End: March 18, 2025 Dr. Dwight Patricia DO Attending Provider Activ e Start: March 17, 2025 End: March 18, 2025 Dr. Dwight Patricia DO Emergency Provider Activ e Start: March 17, 2025 End: March 18, 2025 Team Status: Inactive Member Role/Relationship Status Dates Dr. Jacquie Coleman MD Primary Care Provider Active Start: March 25, 2025 End: March 25, 2025 Dr. Jacquie Coleman MD Referring Provider Active Start: March 25, 2025 End: March 25, 2025 Brittney Ontiveros PA, PA Attending Provider Active Start: March 25, 2025 End: March 25, 2025 Team Status: Inactive Member Role/Relationship Status Dates Dr. Jacquie Coleman MD Primary Care Provider Active Start: May 05, 2025 End: May 05, 2025 Dr. Dwight Patricia DO Attending Provider Activ e Start: May 05, 2025 End: May 05, 2025 Dr. Dwight Patricia DO Emergency Provider Activ e Start: May 05, 2025 End: May 05, 2025 Team Status: Inactive Member Role/Relationship Status Dates Dr. Jacquie Coleman MD Primary Care Provider Active Start: May 30, 2025 End: May 30, 2025 Dr. Dwight Patricia DO Emergency Provider Activ e Start: May 30, 2025 End: May 30, 2025 INFORMATION SOURCE (unrecogn ized section and content) DATE CREATED AUTHOR 05/14/2025 [facility] FOR RECORDS PERTAINING TO PATIENTS WHO ARE OR HAVE BEEN ENROLLED IN A CHEMICAL DEPENDENCY/SUBSTANCEABUSE PROGRAM, SOME INFORMATION MAY BE OMITTED. This clinical summary was aggregated from multiple sources. Caution should be exercised in using it in the provision of clinical care. This summary normalizes information from multiple sources, and as a consequence, information in this document may materially change the coding, format and clinical context of patient data. In addition, data may be omitted in some cases. CLINICAL DECISIONS SHOULD BE BASED ON THE PRIMARY CLINICAL RECORDS. [employer] provides no warranty or guarantee of the accuracy or completeness of information in this document.
--- OUTSIDE RECORDS SUMMARY | 2025-06-02 01:40 | XMS RPT_ITS | CCD ---
Author Organization [facility] Care Team Providers Care Target Trimmer Name Role Phone Dr. Jacquie Coleman Primary [...] Sravanthi CAN, Dr. Elisabet Gonzalez [facility]ending [facility] DO Other Provider Dr. Jozef [...] Provider Dr. Omid Foley DO Attending Provider [facility] , Dr. Quintanilla Attending Provider [facility], Dr. Quintanilla Emergency Provider Brittney Rinaldi [...] Unavailable Miedel, Jacquie Primary Care Unavailable Jean, [place] Attending Unavailable Jean, Jozef Consulting Unavailable Jean, Jozef Referring Unavailable White, Edda L Attending Unavailable White, Edda L Consulting Unavailable White, Edda L Admitting Unavailable Klusty-Tamica, Dwight Referring Unavailabl e Miedel, Jacquie Primary Care Unavailable Koram, Elisabet Lisa Attending Unavailable Mosteller, Robert Consulting Unavailable Koram, Elisabet Lisa Consulting Unavailable Miedel, Jacquie Primary Care Unavailable Miedel, Jacquie Referring Unavailable Jean, [place] Attending Unavailable Miedel, Jacquie Primary Care Unavailable [...] (11 sources) Morphine Drug Allergy 1 Anaphylaxis [facility] (11 sources) Niacin Drug Allergy 1 [facility] (12 sources) Procaine; Translations: [procaine HCl] Drug Allergy 1 Anaphylaxis [facility] (11 sources) Tetracycline Drug Allergy 1 Unknown, Rash [facility] (4 sources) Omeprazole Drug Allergy 5 Diarrhea [facility] (1 source) Morphine Drug Allergy 5 [facility] (1 source) Niacin Drug Allergy 5 [facility] (1 source) Omeprazole Drug Allergy 5 [facility] (1 source) Tetracycline Drug Allergy 5 [facility] Medications Current Medications Medication Drug Class(es) [...] PO DAILY December 31, 2024 1:00am sennosides, fci 8.6 mg oral tablet (5 sources) Start: [...] disease (2 sources) Atherosclerotic heart disease of [place] coronary artery without angina pectoris; Translations: [Atherosclerotic heart disease of [place] coronary artery without angina pectoris] Onset: 5 [...] aftercare (3 sources) Drug therapy finding; Translations: [penitentiary (current) use of anticoagulants] 03-17-2025 Episodic Other [...] Auto (Unsp spec) [#/Vol] 2.15 10*3/uL 0.83-4.51 [facility] Absolute neutrophil countOrd ered By: ED PROVIDER on 05-30-2025 Neutrophils (Bld) [#/Vol] 4.6 10*3/uL 2.0-7.7 [facility] Anion gap in Serum or Plasma Ordered By: ED PROVIDER on 05-30-2025 Anion gap [Moles/Vol] 13 mmol/L 5-15 [facility] Automated lymphocyte count a s percentage of total leukocytesOrdered By: ED PROVIDER on 05-30-2025 Lymphocytes/100 WBC Auto (Unsp spec) 28.9 % 19-41 [facility] BUN/creatinine ratioOrdered By: ED PROVIDER on 05-30-2025 Urea nitrogen/Creatinine [Mass ratio] 14.2 mg/mg 10-20 [facility] Basophil percentageOrdered B y: ED PROVIDER on 05-30-2025 Basophils/100 WBC (Bld) 0.7 % 0-1 [facility] Carbon dioxide, total [Moles /volume] in Central venous bloodOrdered By: ED PROVIDER on 05-30-2025 CO2 [Moles/Vol] 23.0 mmol/L 21.0-32.0 [facility] Chloride assayOrdered By: ED PROVIDER on 05-30-2025 Chloride [Moles/Vol] 105 mmol/L 98-108 [facility] Eosinophil percentageOrdered By: ED PROVIDER on 05-30-2025 Eosinophils/100 WBC (Bld) 0.7 % 0-5 [facility] Erythrocyte distribution wid th ratioOrdered By: ED PROVIDER on 05-30-2025 Erythrocyte distribution width (RBC) [Ratio] 14.6 % 11.6-14.6 [facility] Erythrocyte distribution wid th standard deviationOrdered By: ED PROVIDER on 05-30-2025 Erythrocyte distribution width (RBC) [Ratio] 47.8 fl High 35.1-43.9 [facility] Glomerular filtration rate ( GFR) estimation/1.73 sq m using serum, plasma, or whole bOrdered By: ED PROVIDER on 05-30-2025 GFR/1.73 sq M.predicted among non-blacks MDRD (S/P/Bld) [Vol rate/Area] 71 mL/min/{1.73_m2} >60 [facility] Comment on above: mL/min/1.73m2 CKD-EP I Creatinine Equation (2020) Hematocrit Auto (Bld) [Volum e fraction]Ordered By: ED PROVIDER on 05-30-2025 Hematocrit (Bld) [Volume fraction] 45.9 % 37-47 [facility] Hemoglobin measurementOrdere d By: ED PROVIDER on 05-30-2025 Hemoglobin (Bld) [Mass/Vol] 15.4 g/dL High 12.0-15.0 [facility] Immature granulocytes/100 WB C Auto (Bld)Ordered By: ED PROVIDER on 05-30-2025 Immature granulocytes/100 WBC (Bld) 0.400 % 0.0-0.9 [facility] Comment on above: IG% - Immature Granu locytes (promyelocytes, myelocytes and metamyelocytes) > 1% indicates that a LEFT SHIFT is Present. International normalized rat io (INR) calculationOrdered By: ED PROVIDER on 05-30-2025 INR Coag (Bld) [Relative time] 1.2 {INR} [facility] MCV (mean corpuscular volume ) determinationOrdered By: ED PROVIDER on 05-30-2025 MCV (RBC) [Entitic vol] 90.0 fL 81-99 [facility] Mean corpuscular hemoglobin (MCH) determinationOrdered By: ED PROVIDER on 05-30-2025 MCH (RBC) [Entitic mass] 30.2 pg 27.0-32.0 [facility] Mean corpuscular hemoglobin concentration (MCHC) determinationOrdered By: ED PROVIDER on 05-30-2025 MCHC (RBC) [Mass/Vol] 33.6 g/dL 32-36 [facility] Mean platelet volume determi nationOrdered By: ED PROVIDER on 05-30-2025 Platelet mean volume (Bld) [Entitic vol] 10.2 fL 6.2-12.0 [facility] Monocyte percentageOrdered B y: ED PROVIDER on 05-30-2025 Monocytes/100 WBC (Bld) 7.0 % 0-10 [facility] Natriuretic peptide.B prohor anabel N-Terminal [Mass/volume] in Serum or PlasmaOrdered By: Dwight Patricia on 05-30-2025 Natriuretic peptide.B prohormone N-Terminal [Mass/Vol] 784 pg/mL <1800 [facility] Comment on above: Heart Failure Unlike ly: < 300 pg/mLHeart Failure Likely< 50 Years: > 450 pg/mL50-75 Years: > 900 pg/mL>75 Years: > 1800 pg/mL Neutrophil percentageOrdered By: ED PROVIDER on 05-30-2025 Neutrophils/100 WBC (Bld) 62.3 % 47-70 [facility] Nucleated red blood cell per centageOrdered By: ED PROVIDER on 05-30-2025 Nucleated RBC/100 WBC (Bld) [Ratio] 0 % 0-5 [facility] Platelet countOrdered By: ED PROVIDER on 05-30-2025 Platelets (Bld) [#/Vol] 238 10*3/uL 150-450 [facility] Potassium measurement (mass/ volume)Ordered By: ED PROVIDER on 05-30-2025 Potassium (Unsp spec) [Mass/Vol] 4.1 mmol/L 3.3-5.1 [facility] Prothrombin timeOrdered By: ED PROVIDER on 05-30-2025 PT Coag (PPP) [Time] 15.7 s High 11.7-14.9 [facility] RBC Auto (Bld) [#/Vol]Ordere d By: ED PROVIDER on 05-30-2025 RBC (Bld) [#/Vol] 5.10 10*6/uL 4.2-5.4 [facility] Serum creatinine measurement (mass/volume)Ordered By: ED PROVIDER on 05-30-2025 Creatinine [Mass/Vol] 0.82 mg/dL 0.70-1.20 [facility] Serum glucose measurement (m ass/volume)Ordered By: ED PROVIDER on 05-30-2025 Glucose [Mass/Vol] 114 mg/dL High 70-99 [facility] Serum or plasma calcium balaji urement (mass/volume)Ordered By: ED PROVIDER on 05-30-2025 Calcium [Mass/Vol] 9.6 mg/dL 7.6-11.0 [facility] Serum or plasma urea nitroge n measurement (mass/volume)Ordered By: ED PROVIDER on 05-30-2025 Urea nitrogen [Mass/Vol] 12 mg/dL 4-19 [facility] Sodium levelOrdered By: ED Galilea NAPOLES on 05-30-2025 Sodium [Moles/Vol] 142 mmol/L 133-145 [facility] Troponin T.cardiac [Mass/vol ume] in Serum or Plasma by High sensitivity methodOrdered By: ED PROVIDER on 05-30-2025 Troponin T.cardiac High sensitivity method [Mass/Vol] 22 ng/L High <14 [facility] Comment on above: Delta: 17 on White blood cell (WBC) count Ordered By: ED PROVIDER on 05-30-2025 WBC (Bld) [#/Vol] 7.4 10*3/uL 4.4-11.0 [facility] Absolute lymphocyte countOrd ered By: Dwight Patricia on 05-05-2025 Lymphocytes Auto (Unsp spec) [#/Vol] 2.65 10*3/uL 0.83-4.51 [facility] Absolute neutrophil countOrd ered By: Dwight Patricia on 05-05-2025 Neutrophils (Bld) [#/Vol] 3.1 10*3/uL 2.0-7.7 [facility] Activated partial thrombopla stin time (aPTT) in platelet poor plasma by coagulation aOrdered By: Dwight Patricia on 05-05-2025 aPTT Coag (PPP) [Time] 27.0 s 24.1-36.2 [facility] Anion gap in Serum or Plasma Ordered By: Dwight Patricia on 05-05-2025 Anion gap [Moles/Vol] 15 mmol/L 04-07 [facility] Automated lymphocyte count a s percentage of total leukocytesOrdered By: Dwight Patricia on 05-05-2025 Lymphocytes/100 WBC Auto (Unsp spec) 40.8 % [facility] BUN/creatinine ratioOrdered By: Dwight Patricia on 05-05-2025 Urea nitrogen/Creatinine [Mass ratio] 15.3 mg/mg - [facility] Basic Metabolic Profile (BMP )on 05-05-2025 BUN/CRE 15.3 RATIO Normal - [facility] Comment on above: Performed By: #### L 503.7505, L501.5200, L500.2500 #### [facility] [address] [place], [address] Calcium [Mass/Vol] 9.6 mg/dL Normal 7.6-11.0 [facility] Comment on above: Performed By: #### L 503.7505, L501.5200, L500.2500 #### [facility] [address] [place], [address] Chloride [Moles/Vol] 101 mmol/L Normal 98-108 [facility] Comment on above: Performed By: #### L 503.7505, L501.5200, L500.2500 #### [facility] [address] [place], [address] CO2 [Moles/Vol] 23.3 mmol/L Normal 21.0-32.0 [facility] Comment on above: Performed By: #### L 503.7505, L501.5200, L500.2500 #### [facility] [address] [place], [address] Creatinine [Mass/Vol] 0.89 mg/dL Normal 0.70-1.20 [facility] Comment on above: Performed By: #### L 503.7505, L501.5200, L500.2500 #### [facility] [address] [place], [address] ECRCL 45.85 ml/min Low 50-250 [facility] Comment on above: Performed By: #### L 503.7505, L501.5200, L500.2500 #### [facility] [address] [place], [address] GAP 15 Normal 5-15 [facility] Comment on above: Performed By: #### L 503.7505, L501.5200, L500.2500 #### [facility] [address] [place], [address] GFR/1.73 sq M.predicted among non-blacks MDRD (S/P/Bld) [Vol rate/Area] 64 mL/min/{1.73_m2} Normal >60 [facility] Comment on above: Result Comment: mL/m in/1.73m2 CKD-EPI Creatinine Equation (2020) Performed By: #### L 503.7505, L501.5200, L500.2500 #### [facility] [address] [place], [address] Glucose [Mass/Vol] 156 mg/dL High 70-99 [facility] Comment on above: Performed By: #### L 503.7505, L501.5200, L500.2500 #### [facility] [address] [place], [address] Potassium [Moles/Vol] 3.7 mmol/L Normal 3.3-5.1 [facility] Comment on above: Performed By: #### L 503.7505, L501.5200, L500.2500 #### [facility] [address] [place], [address] Sodium [Moles/Vol] 139 mmol/L Normal 133-145 [facility] Comment on above: Performed By: #### L 503.7505, L501.5200, L500.2500 #### [facility] [address] [place], [address] Urea nitrogen [Mass/Vol] 14 mg/dL Normal 4-19 [facility] Comment on above: Performed By: #### L 503.7505, L501.5200, L500.2500 #### [facility] [address] [place], [address] Basophil percentageOrdered B y: Dwight Patricia on 05-05-2025 Basophils/100 WBC (Bld) 0.6 % 0-1 [facility] CBC W/Diff, Automatedon 04-24 Absolute Lymph 2.65 X10 3/uL Normal 0.83-4.51 [facility] Comment on above: Performed By: #### L 501.5425, L100.0100, L500.2500 #### [facility] [address] [place], [address] Absolute Neut 3.1 X10 3/uL Normal 2.0-7.7 [facility] Comment on above: Performed By: #### L 501.5425, L100.0100, L500.2500 #### [facility] [address] [place], [address] Basophils/100 WBC (Bld) 0.6 % Normal 0-1 [facility] Comment on above: Performed By: #### L 501.5425, L100.0100, L500.2500 #### [facility] [address] [place], [address] Eosinophils/100 WBC (Bld) 2.0 % Normal 0-5 [facility] Comment on above: Performed By: #### L 501.5425, L100.0100, L500.2500 #### [facility] [address] [place], [address] Erythrocyte distribution width (RBC) [Ratio] 14.2 % Normal 11.6-14.6 [facility] Comment on above: Performed By: #### L 501.5425, L100.0100, L500.2500 #### [facility] [address] [place], [address] Hematocrit (Bld) [Volume fraction] 45.2 % Normal 37-47 [facility] Comment on above: Performed By: #### L 501.5425, L100.0100, L500.2500 #### [facility] [address] [place], [address] Hemoglobin (Bld) [Mass/Vol] 15.2 g/dL High 12.0-15.0 [facility] Comment on above: Performed By: #### L 501.5425, L100.0100, L500.2500 #### [facility] [address] [place], [address] IG% 0.500 Normal 0.0-0.9 [facility] Comment on above: Result Comment: IG% - Immature Granulocytes (promyelocytes, myelocytes and metamyelocytes) > 1% indicates that a LEFT SHIFT is Present. Performed By: #### L 501.5425, L100.0100, L500.2500 #### [facility] [address] [place], [address] Lymphocytes/100 WBC (Bld) 40.8 % Normal 19-41 [facility] Comment on above: Performed By: #### L 501.5425, L100.0100, L500.2500 #### [facility] [address] [place], [address] MCH (RBC) [Entitic mass] 30.0 pg Normal 27.0-32.0 [facility] Comment on above: Performed By: #### L 501.5425, L100.0100, L500.2500 #### [facility] [address] [place], [address] MCHC (RBC) [Mass/Vol] 33.6 g/dL Normal 32-36 [facility] Comment on above: Performed By: #### L 501.5425, L100.0100, L500.2500 #### [facility] [address] [place], [address] MCV (RBC) [Entitic vol] 89.2 fL Normal 81-99 [facility] Comment on above: Performed By: #### L 501.5425, L100.0100, L500.2500 #### [facility] [address] [place], [address] Monocytes/100 WBC (Bld) 8.5 % Normal 0-10 [facility] Comment on above: Performed By: #### L 501.5425, L100.0100, L500.2500 #### [facility] [address] [place], [address] Neutrophils/100 WBC (Bld) 47.6 % Normal 47-70 [facility] Comment on above: Performed By: #### L 501.5425, L100.0100, L500.2500 #### [facility] [address] [place], [address] Nucleated RBC (Bld) [#/Vol] 0 10*3/uL Normal 0-5 [facility] Comment on above: Performed By: #### L 501.5425, L100.0100, L500.2500 #### [facility] [address] [place], [address] Platelet mean volume (Bld) [Entitic vol] 10.5 fL Normal 6.2-12.0 [facility] Comment on above: Performed By: #### L 501.5425, L100.0100, L500.2500 #### [facility] [address] [place], [address] Platelets (Bld) [#/Vol] 220 10*3/uL Normal 150-450 [facility] Comment on above: Performed By: #### L 501.5425, L100.0100, L500.2500 #### [facility] [address] [place], [address] RBC (Bld) [#/Vol] 5.07 10*6/uL Normal 4.2-5.4 [facility] Comment on above: Performed By: #### L 501.5425, L100.0100, L500.2500 #### [facility] [address] [place], [address] RDW SD 46.2 fl High 35.1-43.9 [facility] Comment on above: Performed By: #### L 501.5425, L100.0100, L500.2500 #### [facility] [address] [place], [address] WBC (Bld) [#/Vol] 6.5 10*3/uL Normal 4.4-11.0 [facility] Comment on above: Performed By: #### L 501.5425, L100.0100, L500.2500 #### [facility] [address] [place], [address] Carbon dioxide, total [Moles /volume] in Central venous bloodOrdered By: Dwight Patricia on 05-05-2025 CO2 [Moles/Vol] 23.3 mmol/L 21.0-32.0 [facility] Chest PA and Lateralon 05-05 Chest PA and Lateral [facility] Imaging Services [address] [place] [address] Chest PA and Lateral MR#: [id number] Acct: [id number] Name: AL LEWIS ANN Rep #: [id number] : 1940 F 84 From: Pamela Valdez nd, MD PCP: Dr. Jacquie Coleman MD Status: REG ER Study: Chest PA and Lateral Date of Exam: 05/05/25 Exam# [id number] Ordering Dr: Dwight Patricia DO PROCEDURE: CHEST [...] Lateral IMPRESSION: Stable mild cardiomegaly. Reading Location: [facility] CC: Dr. Dwight Patricia DO; Dr. Jacquie Coleman MD Hospice Consultant: Signed Normal [facility] Chloride assayOrdered By: Avery Patricia on 05-05-2025 Chloride [Moles/Vol] 101 mmol/L 98-108 [facility] Emergency Department Summary on 05-05-2025 Emergency Department Summary [facility] Medical Records Department [address] [place] [address] Emergency Department Summary 05/05/25 MR#: [id number] Acct: [id number] Name: AL LEWIS ANN Rep #: [id number] : 1940 84 From: Dwight Patricia DO [...] intact Psych: Cooperative, appropriate mood and affect [facility] Medical History Atrial fibrillation with RVR Cardiac [...] Room Air (more content not included)... Normal [facility] Eosinophil percentageOrdered By: Dwighttheodora Patricia on 05-05-2025 Eosinophils/100 WBC (Bld) 2.0 % 0-5 [facility] Erythrocyte distribution wid th ratioOrdered By: [facility] on 05-[facility]-2025 Erythrocyte distribution width (RBC) [Ratio] 14.2 % 11.6-14.6 [facility] Erythrocyte distribution wid th standard deviationOrdered By: [facility] Hospital[facility] Davey on 05-05-2025 Erythrocyte distribution width (RBC) [Ratio] 46.2 fl High 35.1-43.9 [facility] Glomerular filtration rate ( GFR) estimation/1.73 sq m using serum, plasma, or whole bOrdered By: [facility] on 05-05-2025 GFR/1.73 sq M.predicted among non-blacks MDRD (S/P/Bld) [Vol rate/Area] 64 mL/min/{1.73_m2} >60 [facility] Comment on above: mL/min/1.73m2 CKD-EP I Creatinine Equation (2020) Hematocrit Auto (Bld) [Volum e fraction]Ordered By: [facility] on 05-05-2025 Hematocrit (Bld) [Volume fraction] 45.2 % 37-47 [facility] Hemoglobin measurementOrdere d By: Dwight Patricia on 05-05-2025 Hemoglobin (Bld) [Mass/Vol] 15.2 g/dL High 12.0-15.0 [facility] Immature granulocytes/100 WB C Auto (Bld)Ordered By: [facility] on 05-05-2025 Immature granulocytes/100 WBC (Bld) 0.500 % 0.0-0.9 [facility] Comment on above: IG% - Immature Granu locytes (promyelocytes, myelocytes and metamyelocytes) > 1% indicates that a LEFT SHIFT is Present. International normalized rat io (INR) calculationOrdered By: Dwight Patricia on 05-05-2025 INR Coag (Bld) [Relative time] 1.0 {INR} [facility] L499.0042on 05-05-2025 Trop T High Sen Normal <=14 [facility] Comment on above: Result Comment: PT D ISCHARGED Performed By: #### L 501.5425, L100.0100, L500.2500 #### [facility] [address] [place], [address] L501.4021on 05-05-2025 Trop T High Sen 17 ng/L High <=14 [facility] Comment on above: Performed By: #### L 501.5425, L100.0100, L500.2500 #### [facility] [address] [place], [address] L503.7505on 05-05-2025 Natriuretic peptide B (Bld) [Mass/Vol] 509 pg/mL Normal <=1800 [facility] Comment on above: Result Comment: Hear t Failure Unlikely: < 300 pg/mL Heart Failure Likely < 50 Years: > 450 pg/mL 50-75 Years: > 900 pg/mL >75 Years: > 1800 pg/mL Performed By: #### L 501.5425, L100.0100, L500.2500 #### [facility] [address] [place], [address] MCV (mean corpuscular volume ) determinationOrdered By: Dwight Patricia on 05-05-2025 MCV (RBC) [Entitic vol] 89.2 fL 81-99 [facility] Magnesiumon 05-05-2025 Magnesium [Mass/Vol] 2.1 mg/dL Normal 1.5-2.2 [facility] Comment on above: Performed By: #### L 503.7505, L501.5200, L500.2500 #### [facility] [address] [place], [address] Magnesium measurement (mass/ volume)Ordered By: Dwight Patricia on 05-05-2025 Magnesium (Unsp spec) [Mass/Vol] 2.1 mg/dL 1.5-2.2 [facility] Mean corpuscular hemoglobin (MCH) determinationOrdered By: Dwight Patricia on 05-05-2025 MCH (RBC) [Entitic mass] 30.0 pg 27.0-32.0 [facility] Mean corpuscular hemoglobin concentration (MCHC) determinationOrdered By: Dwight Patricia on 05-05-2025 MCHC (RBC) [Mass/Vol] 33.6 g/dL 32-36 [facility] Mean platelet volume determi nationOrdered By: Dwight Patricia on 05-05-2025 Platelet mean volume (Bld) [Entitic vol] 10.5 fL 6.2-12.0 [facility] Monocyte percentageOrdered B y: Dwight Patricia on 05-05-2025 Monocytes/100 WBC (Bld) 8.5 % 0-10 [facility] Natriuretic peptide.B prohor anabel N-Terminal [Mass/volume] in Serum or PlasmaOrdered By: Dwight Patricia on 05-05-2025 Natriuretic peptide.B prohormone N-Terminal [Mass/Vol] 509 pg/mL <1800 [facility] Comment on above: Heart Failure Unlike ly: < 300 pg/mLHeart Failure Likely< 50 Years: > 450 pg/mL50-75 Years: > 900 pg/mL>75 Years: > 1800 pg/mL Neutrophil percentageOrdered By: Dwight Harshad on 05-05-2025 Neutrophils/100 WBC (Bld) 47.6 % 47-70 [facility] Nucleated red blood cell per centageOrdered By: Dwight Harshad on 05-05-2025 Nucleated RBC/100 WBC (Bld) [Ratio] 0 % 0-5 [facility] Partial Thromboplast Timeon 05-05-2025 aPTT Coag (Bld) [Time] 27.0 s Normal 24.1-36.2 [facility] Comment on above: Performed By: #### L 501.5425, L100.0100, L500.2500 #### [facility] [address] [place], [address] Platelet countOrdered By: Avery Patricia on 05-05-2025 Platelets (Bld) [#/Vol] 220 10*3/uL 150-450 [facility] Potassium measurement (mass/ volume)Ordered By: Dwight Patricia on 05-05-2025 Potassium (Unsp spec) [Mass/Vol] 3.7 mmol/L 3.3-5.1 [facility] Prothrombin Time w/INRon INR Coag (PPP) [Relative time] 1.0 {INR} Normal [facility] Comment on above: Performed By: #### L 501.5425, L100.0100, L500.2500 #### [facility] Laboratory [address] [place], [address] PT Coag (PPP) [Time] 13.5 s Normal 11.7-14.9 [facility] Comment on above: Performed By: #### L 501.5425, L100.0100, L500.2500 #### [facility] [address] [place], [address] Prothrombin timeOrdered By: Dwight Patricia on 05-05-2025 PT Coag (PPP) [Time] 13.5 s 11.7-14.9 [facility] RBC Auto (Bld) [#/Vol]Ordere d By: Dwight Patricia on 05-05-2025 RBC (Bld) [#/Vol] 5.07 10*6/uL 4.2-5.4 [facility] Serum creatinine measurement (mass/volume)Ordered By: Dwight Patricia on 05-05-2025 Creatinine [Mass/Vol] 0.89 mg/dL 0.70-1.20 [facility] Serum glucose measurement (m ass/volume)Ordered By: Dwight Patricia on 05-05-2025 Glucose [Mass/Vol] 156 mg/dL High 70-99 [facility] Serum or plasma calcium balaji urement (mass/volume)Ordered By: Dwight Davey on 05-05-2025 Calcium [Mass/Vol] 9.6 mg/dL 7.6-11.0 [facility] Serum or plasma urea nitroge n measurement (mass/volume)Ordered By: Dwight Patricia on 05-05-2025 Urea nitrogen [Mass/Vol] 14 mg/dL 4-19 [facility] Sodium levelOrdered By: Terry Patricia on 05-05-2025 Sodium [Moles/Vol] 139 mmol/L 133-145 [facility] Troponin T.cardiac [Mass/vol ume] in Serum or Plasma by High sensitivity methodOrdered By: Dwight Patricia on 05-05-2025 Troponin T.cardiac High sensitivity method [Mass/Vol] 17 ng/L High <14 [facility] Comment on above: Delta: 25 on 5-2330 White blood cell (WBC) count Ordered By: Dwight Patricia on 05-05-2025 WBC (Bld) [#/Vol] 6.5 10*3/uL 4.4-11.0 [facility] Cardiology Visit Reporton Cardiology Visit Report [facility]. [address] [place] [address] OFFICE VISIT Date of Service: 03/25/25 MR#: [id number] Acct: [id number] Name: AL LEWIS Rep #: [id number] : 1940 Provider: ART Keenan Age/Sex: 84/F Location: [facility] Status: Signed HPI HPI History of Present [...] demonstrating sinus bradycardia. She does have a LLS5YN3-BHMx score of at least 3 and was [...] Pulse Source NIBP Intake Visit Reasons: S/P [facility] 03/17 Assessment Analyst Required: No Accompanied by: Self Is patient [...] for fatigue (more content not included)... Normal [facility] Basic Metabolic Profile (BMP )on 03-18-2025 BUN/CRE 20.1 RATIO High 10-20 [facility] Comment on above: Performed By: #### L 501.4021, L500.2500, L100.0100 #### [facility] [address] [place], [address] ECRCL 47.80 ml/min Low 50-250 [facility] Comment on above: Performed By: #### L 501.4021, L500.2500, L100.0100 #### [facility] [address] [place], [address] GAP 15 Normal 5-15 [facility] Comment on above: Performed By: #### L 501.4021, L500.2500, L100.0100 #### [facility] [address] [place], [address] Potassium [Moles/Vol] 3.9 mmol/L Normal 3.3-5.1 [facility] Comment on above: Performed By: #### L 501.4021, L500.2500, L100.0100 #### [facility] [address] [place], [address] Emergency Department Summary on 03-18-2025 Emergency Department Summary [facility] Medical Records Department [address] [place] [address] Emergency Department Summary 03/18/25 MR#: [id number] Acct: [id number] Name: AL LEWIS ANN Rep #: [id number] : 1940 84 From: Dwight Patricia DO [...] for evaluati (more content not included)... Normal [facility] L499.0042on 03-18-2025 Trop T High Sen 29 ng/L High <=14 [facility] Comment on above: Performed By: #### L 501.5425, L100.0100, L500.2500 #### [facility] [address] [place], [address] L499.0043on 03-18-2025 Trop T High Sen Normal <=14 [facility] Comment on above: Result Comment: Migue gaming via OM: Ordered Performed By: #### L 501.5425, L100.0100, L500.2500 #### [facility] [address] [place], [address] L501.4021on 03-18-2025 Trop T High Sen 25 ng/L High <=14 [facility] Comment on above: Performed By: #### L 501.4021, L500.2500, L100.0100 #### [facility] [address] [place], [address] Magnesiumon 03-18-2025 Magnesium [Mass/Vol] 2.1 mg/dL Normal 1.5-2.2 [facility] Comment on above: Performed By: #### L 501.4021, L500.2500, L100.0100 #### [facility] [address] [place], [address] Magnesium measurement (mass/ volume)Ordered By: Dwight Patricia on 03-18-2025 Magnesium (Unsp spec) [Mass/Vol] 2.1 mg/dL 1.5-2.2 [facility] Troponin T.cardiac [Mass/vol ume] in Serum or Plasma by High sensitivity methodOrdered By: Dwight Patricia on 03-18-2025 Troponin T.cardiac High sensitivity method [Mass/Vol] 29 ng/L High <14 [facility] Absolute lymphocyte countOrd ered By: ED PROVIDER on 03-17-2025 Lymphocytes Auto (Unsp spec) [#/Vol] 3.50 10*3/uL 0.83-4.51 [facility] Absolute lymphocyte countOrd ered By: Omid Foley on 03-17-2025 Lymphocytes Auto (Unsp spec) [#/Vol] 5.15 10*3/uL High 0.83-4.51 [facility] Absolute neutrophil countOrd ered By: ED PROVIDER on 03-17-2025 Neutrophils (Bld) [#/Vol] 4.4 10*3/uL 2.0-7.7 [facility] Absolute neutrophil countOrd ered By: Omid Foley on 03-17-2025 Neutrophils (Bld) [#/Vol] 4.1 10*3/uL 2.0-7.7 [facility] Anion gap in Serum or Plasma Ordered By: Dwight Patricia on 03-17-2025 Anion gap [Moles/Vol] 15 mmol/L 04-07 [facility] Anion gap in Serum or Plasma Ordered By: Omid Foley on 03-17-2025 Anion gap [Moles/Vol] 16 mmol/L High 04-07 [facility] Automated lymphocyte count a s percentage of total leukocytesOrdered By: ED PROVIDER on 03-17-2025 Lymphocytes/100 WBC Auto (Unsp spec) 39.0 % [facility] Automated lymphocyte count a s percentage of total leukocytesOrdered By: Omid Foley on 03-17-2025 Lymphocytes/100 WBC Auto (Unsp spec) 49.6 % High [facility] BUN/creatinine ratioOrdered By: Dwight Patricia on 03-17-2025 Urea nitrogen/Creatinine [Mass ratio] 20.1 mg/mg High 09-12 [facility] BUN/creatinine ratioOrdered By: Omid Foley on 03-17-2025 Urea nitrogen/Creatinine [Mass ratio] 13.6 mg/mg 09-12 [facility] Basic Metabolic Profile (BMP )on 03-17-2025 BUN/CRE 13.6 RATIO Normal 09-12 [facility] Comment on above: Performed By: #### L 501.4021, L500.2500, L100.0100 #### [facility] [address] [place], [address] Calcium [Mass/Vol] 9.6 mg/dL Normal 7.6-11.0 [facility] Comment on above: Performed By: #### L 501.4021, L500.2500, L100.0100 #### [facility] [address] [place], [address] Chloride [Moles/Vol] 100 mmol/L Normal 98-108 [facility] Comment on above: Performed By: #### L 501.4021, L500.2500, L100.0100 #### [facility] [address] [place], [address] CO2 [Moles/Vol] 22.4 mmol/L Normal 21.0-32.0 [facility] Comment on above: Performed By: #### L 501.4021, L500.2500, L100.0100 #### [facility] [address] [place], [address] Creatinine [Mass/Vol] 1.13 mg/dL Normal 0.70-1.20 [facility] Comment on above: Performed By: #### L 501.4021, L500.2500, L100.0100 #### [facility] [address] [place], [address] GAP 16 High 5-15 [facility] Comment on above: Performed By: #### L 501.4021, L500.2500, L100.0100 #### [facility] [address] [place], [address] GFR/1.73 sq M.predicted among non-blacks MDRD (S/P/Bld) [Vol rate/Area] 48 mL/min/{1.73_m2} Low >60 [facility] Comment on above: Result Comment: mL/m in/1.73m2 CKD-EPI Creatinine Equation (2020) Performed By: #### L 501.4021, L500.2500, L100.0100 #### [facility] [address] [place], [address] Glucose [Mass/Vol] 138 mg/dL High 70-99 [facility] Comment on above: Performed By: #### L 501.4021, L500.2500, L100.0100 #### [facility] [address] [place], [address] Potassium [Moles/Vol] 3.9 mmol/L Normal 3.3-5.1 [facility] Comment on above: Result Comment: Hemo lysis present, Results??could be affected. ?? Performed By: #### L 501.4021, L500.2500, L100.0100 #### [facility] [address] [place], [address] Sodium [Moles/Vol] 138 mmol/L Normal 133-145 [facility] Comment on above: Performed By: #### L 501.4021, L500.2500, L100.0100 #### [facility] [address] [place], [address] Urea nitrogen [Mass/Vol] 15 mg/dL Normal 4-19 [facility] Comment on above: Performed By: #### L 501.4021, L500.2500, L100.0100 #### [facility] [address] [place], [address] Basophil percentageOrdered B y: ED PROVIDER on 03-17-2025 Basophils/100 WBC (Bld) 0.6 % 0-1 [facility] Basophil percentageOrdered B y: Omid Foley on 03-17-2025 Basophils/100 WBC (Bld) 0.6 % 0-1 [facility] CBC W/Diff, Automatedon - Absolute Lymph 3.50 X10 3/uL Normal 0.83-4.51 [facility] Comment on above: Performed By: #### L 501.4021, L500.2500, L100.0100 #### [facility] [address] [place], [address] Absolute Neut 4.4 X10 3/uL Normal 2.0-7.7 [facility] Comment on above: Performed By: #### L 501.4021, L500.2500, L100.0100 #### [facility] [address] [place], [address] Basophils/100 WBC (Bld) 0.6 % Normal 0-1 [facility] Comment on above: Performed By: #### L 501.4021, L500.2500, L100.0100 #### [facility] [address] [place], [address] Eosinophils/100 WBC (Bld) 2.4 % Normal 0-5 [facility] Comment on above: Performed By: #### L 501.4021, L500.2500, L100.0100 #### [facility] [address] [place], [address] Erythrocyte distribution width (RBC) [Ratio] 13.9 % Normal 11.6-14.6 [facility] Comment on above: Performed By: #### L 501.4021, L500.2500, L100.0100 #### [facility] [address] [place], [address] Hematocrit (Bld) [Volume fraction] 43.7 % Normal 37-47 [facility] Comment on above: Performed By: #### L 501.4021, L500.2500, L100.0100 #### [facility] [address] [place], [address] Hemoglobin (Bld) [Mass/Vol] 14.8 g/dL Normal 12.0-15.0 [facility] Comment on above: Performed By: #### L 501.4021, L500.2500, L100.0100 #### [facility] [address] [place], [address] IG% 0.300 Normal 0.0-0.9 [facility] Comment on above: Result Comment: IG% - Immature Granulocytes (promyelocytes, myelocytes and metamyelocytes) > 1% indicates that a LEFT SHIFT is Present. Performed By: #### L 501.4021, L500.2500, L100.0100 #### [facility] [address] [place], [address] Lymphocytes/100 WBC (Bld) 39.0 % Normal 19-41 [facility] Comment on above: Performed By: #### L 501.4021, L500.2500, L100.0100 #### [facility] [address] [place], [address] MCH (RBC) [Entitic mass] 30.1 pg Normal 27.0-32.0 [facility] Comment on above: Performed By: #### L 501.4021, L500.2500, L100.0100 #### [facility] [address] [place], [address] MCHC (RBC) [Mass/Vol] 33.9 g/dL Normal 32-36 [facility] Comment on above: Performed By: #### L 501.4021, L500.2500, L100.0100 #### [facility] [address] [place], [address] MCV (RBC) [Entitic vol] 89.0 fL Normal 81-99 [facility] Comment on above: Performed By: #### L 501.4021, L500.2500, L100.0100 #### [facility] [address] [place], [address] Monocytes/100 WBC (Bld) 8.6 % Normal 0-10 [facility] Comment on above: Performed By: #### L 501.4021, L500.2500, L100.0100 #### [facility] [address] [place], [address] Neutrophils/100 WBC (Bld) 49.1 % Normal 47-70 [facility] Comment on above: Performed By: #### L 501.4021, L500.2500, L100.0100 #### [facility] [address] [place], [address] Nucleated RBC (Bld) [#/Vol] 0 10*3/uL Normal 0-5 [facility] Comment on above: Performed By: #### L 501.4021, L500.2500, L100.0100 #### [facility] [address] [place], [address] Platelet mean volume (Bld) [Entitic vol] 9.7 fL Normal 6.2-12.0 [facility] Comment on above: Performed By: #### L 501.4021, L500.2500, L100.0100 #### [facility] [address] [place], [address] Platelets (Bld) [#/Vol] 247 10*3/uL Normal 150-450 [facility] Comment on above: Performed By: #### L 501.4021, L500.2500, L100.0100 #### [facility] [address] [place], [address] RBC (Bld) [#/Vol] 4.91 10*6/uL Normal 4.2-5.4 [facility] Comment on above: Performed By: #### L 501.4021, L500.2500, L100.0100 #### [facility] [address] [place], [address] RDW SD 45.3 fl High 35.1-43.9 [facility] Comment on above: Performed By: #### L 501.4021, L500.2500, L100.0100 #### [facility] [address] [place], [address] WBC (Bld) [#/Vol] 9.0 10*3/uL Normal 4.4-11.0 [facility] Comment on above: Performed By: #### L 501.4021, L500.2500, L100.0100 #### [facility] [address] [place], [address] Absolute Lymph 5.15 X10 3/uL High 0.83-4.51 [facility] Comment on above: Performed By: #### L 501.4021, L500.2500, L100.0100 #### [facility] [address] [place], [address] Absolute Neut 4.1 X10 3/uL Normal 2.0-7.7 [facility] Comment on above: Performed By: #### L 501.4021, L500.2500, L100.0100 #### [facility] [address] [place], [address] Basophils/100 WBC (Bld) 0.6 % Normal 0-1 [facility] Comment on above: Performed By: #### L 501.4021, L500.2500, L100.0100 #### [facility] [address] [place], [address] Eosinophils/100 WBC (Bld) 1.6 % Normal 0-5 [facility] Comment on above: Performed By: #### L 501.4021, L500.2500, L100.0100 #### [facility] [address] [place], [address] Erythrocyte distribution width (RBC) [Ratio] 13.5 % Normal 11.6-14.6 [facility] Comment on above: Performed By: #### L 501.4021, L500.2500, L100.0100 #### [facility] [address] [place], [address] Hematocrit (Bld) [Volume fraction] 47.6 % High 37-47 [facility] Comment on above: Performed By: #### L 501.4021, L500.2500, L100.0100 #### [facility] [address] [place], [address] Hemoglobin (Bld) [Mass/Vol] 15.8 g/dL High 12.0-15.0 [facility] Comment on above: Performed By: #### L 501.4021, L500.2500, L100.0100 #### [facility] [address] [place], [address] IG% 0.300 Normal 0.0-0.9 [facility] Comment on above: Result Comment: IG% - Immature Granulocytes (promyelocytes, myelocytes and metamyelocytes) > 1% indicates that a LEFT SHIFT is Present. Performed By: #### L 501.4021, L500.2500, L100.0100 #### [facility] [address] [place], [address] Lymphocytes/100 WBC (Bld) 49.6 % High 19-41 [facility] Comment on above: Performed By: #### L 501.4021, L500.2500, L100.0100 #### [facility] [address] [place], [address] MCH (RBC) [Entitic mass] 29.9 pg Normal 27.0-32.0 [facility] Comment on above: Performed By: #### L 501.4021, L500.2500, L100.0100 #### [facility] [address] [place], [address] MCHC (RBC) [Mass/Vol] 33.2 g/dL Normal 32-36 [facility] Comment on above: Performed By: #### L 501.4021, L500.2500, L100.0100 #### [facility] [address] [place], [address] MCV (RBC) [Entitic vol] 90.0 fL Normal 81-99 [facility] Comment on above: Performed By: #### L 501.4021, L500.2500, L100.0100 #### [facility] [address] [place], [address] Monocytes/100 WBC (Bld) 8.0 % Normal 0-10 [facility] Comment on above: Performed By: #### L 501.4021, L500.2500, L100.0100 #### [facility] [address] [place], [address] Neutrophils/100 WBC (Bld) 39.9 % Low 47-70 [facility] Comment on above: Performed By: #### L 501.4021, L500.2500, L100.0100 #### [facility] [address] [place], [address] Nucleated RBC (Bld) [#/Vol] 0 10*3/uL Normal 0-5 [facility] Comment on above: Performed By: #### L 501.4021, L500.2500, L100.0100 #### [facility] [address] [place], [address] Platelet mean volume (Bld) [Entitic vol] 10.7 fL Normal 6.2-12.0 [facility] Comment on above: Performed By: #### L 501.4021, L500.2500, L100.0100 #### [facility] [address] [place], [address] Platelets (Bld) [#/Vol] 267 10*3/uL Normal 150-450 [facility] Comment on above: Performed By: #### L 501.4021, L500.2500, L100.0100 #### [facility] [address] [place], [address] RBC (Bld) [#/Vol] 5.29 10*6/uL Normal 4.2-5.4 [facility] Comment on above: Performed By: #### L 501.4021, L500.2500, L100.0100 #### [facility] [address] [place], [address] RDW SD 45.0 fl High 35.1-43.9 [facility] Comment on above: Performed By: #### L 501.4021, L500.2500, L100.0100 #### [facility] [address] [place], [address] WBC (Bld) [#/Vol] 10.4 10*3/uL Normal 4.4-11.0 [facility] Comment on above: Performed By: #### L 501.4021, L500.2500, L100.0100 #### [facility] [address] [place], [address] Carbon dioxide, total [Moles /volume] in Central venous bloodOrdered By: Dwight Patricia on 03-17-2025 CO2 [Moles/Vol] 20.8 mmol/L Low 21.0-32.0 [facility] Comment on above: Performed By: #### L 501.4021, L500.2500, L100.0100 #### [facility] [address] [place], [address] Carbon dioxide, total [Moles /volume] in Central venous bloodOrdered By: Omid Foley on 03-17-2025 CO2 [Moles/Vol] 22.4 mmol/L 21.0-32.0 [facility] Chest 1 View (Portable)on Chest 1 View (Portable) [facility] Imaging Services [address] [place] [address] Chest 1 View (Portable) MR#: [id number] Acct: [id number] Name: AL LEWIS ANN Rep #: [id number] : 1940 F 84 From: Eduin Sim MD PCP: Dr. Jacquie Coleman MD Status: PRE ER Study: Chest 1 View (Portable) Date of Exam: 03/17/25 Exam# [id number] Ordering Dr: Provider,Ed P. PROCEDURE: CHEST 1 VIEW (PORTABLE) 03/17/2025 REASON FOR EXAM: CHEST PAIN TECHNIQUE: Frontal view of the chest. COMPARISON: 12/30/2024 FINDINGS: Hardware: None Heart: Cardiac and mediastinal contours are stable. Lungs: The lungs are clear. Elevated right hemidiaphragm. Bones: The bones are unremarkable. Other: RAD/Chest 1 View (Portable) IMPRESSION: No Acute Findings. Reading Location: [id number] CC: Dr. Jacquie Coleman MD; ED PHYSICIAN PROVIDER Hospice Consultant: Signed Normal [facility] Chloride assayOrdered By: Avery Patricia on 03-17-2025 Chloride [Moles/Vol] 103 mmol/L 98-108 [facility] Comment on above: Performed By: #### L 501.4021, L500.2500, L100.0100 #### [facility] [address] [place], [address] Chloride assayOrdered By: Benton Foley on 03-17-2025 Chloride [Moles/Vol] 100 mmol/L 98-108 [facility] Emergency Department Summary on 03-17-2025 Emergency Department Summary [facility] Medical Records Department [address] [place] [address] Emergency Department Summary 03/17/25 MR#: [id number] Acct: [id number] Name: AL LEWIS ANN Rep #: [id number] : 1940 84 From: Omid Foley DO [...] any chest pain with the current episode. [facility] Medical History Palpitations Cardiac murmur Vitamin D [...] (Initial Baselin (more content not included)... Normal [facility] Eosinophil percentageOrdered By: ED PROVIDER on 03-17-2025 Eosinophils/100 WBC (Bld) 2.4 % 0-5 [facility] Eosinophil percentageOrdered By: Omid Foley on 03-17-2025 Eosinophils/100 WBC (Bld) 1.6 % 0-5 [facility] Erythrocyte distribution wid th (RBC) [Ratio]Ordered By: Omid Foley on 03-17-2025 Erythrocyte distribution width (RBC) [Entitic vol] 45.0 fL High 35.1-43.9 [facility] Erythrocyte distribution wid th ratioOrdered By: ED PROVIDER on 03-17-2025 Erythrocyte distribution width (RBC) [Ratio] 13.9 % 11.6-14.6 [facility] Erythrocyte distribution wid th ratioOrdered By: Omid Foley on 03-17-2025 Erythrocyte distribution width (RBC) [Ratio] 13.5 % 11.6-14.6 [facility] Erythrocyte distribution wid th standard deviationOrdered By: ED PROVIDER on 03-17-2025 Erythrocyte distribution width (RBC) [Ratio] 45.3 fl High 35.1-43.9 [facility] Erythrocyte distribution wid th standard deviationOrdered By: Omid Foley on 03-17-2025 Erythrocyte distribution width (RBC) [Ratio] 45.0 fl High 35.1-43.9 [facility] GFR/1.73 sq M.predicted jaime g non-blacks MDRD (S/P/Bld) [Vol rate/Area]Ordered By: Omid Foley on 03-17-2025 Estimated GFR (MDRD) Non-Af Amer 48 Low >60 [facility] Comment on above: mL/min/1.73m2 CKD-EP I Creatinine Equation (2020) Glomerular filtration rate ( GFR) estimation/1.73 sq m using serum, plasma, or whole bOrdered By: Dwight Patricia on 03-17-2025 GFR/1.73 sq M.predicted among non-blacks MDRD (S/P/Bld) [Vol rate/Area] 67 mL/min/{1.73_m2} >60 [facility] Comment on above: mL/min/1.73m2 CKD-EP I Creatinine Equation (2020) Result Comment: mL/m in/1.73m2 CKD-EPI Creatinine Equation (2020) Performed By: #### L 501.4021, L500.2500, L100.0100 #### [facility] [address] [place], [place], [id number] Glomerular filtration rate ( GFR) estimation/1.73 sq m using serum, plasma, or whole bOrdered By: Omid Foley on 03-17-2025 GFR/1.73 sq M.predicted among non-blacks MDRD (S/P/Bld) [Vol rate/Area] 48 mL/min/{1.73_m2} Low >60 [facility] Comment on above: mL/min/1.73m2 CKD-EP I Creatinine Equation (2020) Hematocrit Auto (Bld) [Volum e fraction]Ordered By: ED PROVIDER on 03-17-2025 Hematocrit (Bld) [Volume fraction] 43.7 % 37-47 [facility] Hematocrit Auto (Bld) [Volum e fraction]Ordered By: Omid Foley on 03-17-2025 Hematocrit (Bld) [Volume fraction] 47.6 % High 37-47 [facility] Hemoglobin measurementOrdere d By: ED PROVIDER on 03-17-2025 Hemoglobin (Bld) [Mass/Vol] 14.8 g/dL 12.0-15.0 [facility] Hemoglobin measurementOrdere d By: Omid Foley on 03-17-2025 Hemoglobin (Bld) [Mass/Vol] 15.8 g/dL High 12.0-15.0 [facility] Immature granulocytes/100 WB C Auto (Bld)Ordered By: ED PROVIDER on 03-17-2025 Immature granulocytes/100 WBC (Bld) 0.300 % 0.0-0.9 [facility] Comment on above: IG% - Immature Granu locytes (promyelocytes, myelocytes and metamyelocytes) > 1% indicates that a LEFT SHIFT is Present. Immature granulocytes/100 WB C Auto (Bld)Ordered By: Omid Foley on 03-17-2025 Immature granulocytes/100 WBC (Bld) 0.300 % 0.0-0.9 [facility] Comment on above: IG% - Immature Granu locytes (promyelocytes, myelocytes and metamyelocytes) > 1% indicates that a LEFT SHIFT is Present. Lymphocytes Auto (Unsp spec) [#/Vol]Ordered By: Omid Foley on 03-17-2025 Lymphocytes (Bld) [#/Vol] 5.15 10*3/uL High 0.83-4.51 [facility] Lymphocytes/100 WBC Auto (Un sp spec)Ordered By: Omid Foley on 03-17-2025 Lymphocytes/100 WBC (Bld) 49.6 % High 19-41 [facility] MCV (mean corpuscular volume ) determinationOrdered By: ED PROVIDER on 03-17-2025 MCV (RBC) [Entitic vol] 89.0 fL 81-99 [facility] MCV (mean corpuscular volume ) determinationOrdered By: Omid Foley on 03-17-2025 MCV (RBC) [Entitic vol] 90.0 fL 81-99 [facility] Magnesiumon 03-17-2025 Magnesium [Mass/Vol] 2.1 mg/dL Normal 1.5-2.2 [facility] Comment on above: Performed By: #### L 501.5200 #### [facility] [address] [place] [address], [address] Magnesium (Unsp spec) [Mass/ Vol]Ordered By: Omid Foley on 03-17-2025 Magnesium [Mass/Vol] 2.1 mg/dL 1.5-2.2 [facility] Magnesium measurement (mass/ volume)Ordered By: Omid Foley on 03-17-2025 Magnesium (Unsp spec) [Mass/Vol] 2.1 mg/dL 1.5-2.2 [facility] Mean corpuscular hemoglobin (MCH) determinationOrdered By: ED PROVIDER on 03-17-2025 MCH (RBC) [Entitic mass] 30.1 pg 27.0-32.0 [facility] Mean corpuscular hemoglobin (MCH) determinationOrdered By: Omid Foley on 03-17-2025 MCH (RBC) [Entitic mass] 29.9 pg 27.0-32.0 [facility] Mean corpuscular hemoglobin concentration (MCHC) determinationOrdered By: ED PROVIDER on 03-17-2025 MCHC (RBC) [Mass/Vol] 33.9 g/dL 32-36 [facility] Mean corpuscular hemoglobin concentration (MCHC) determinationOrdered By: Omid Foley on 03-17-2025 MCHC (RBC) [Mass/Vol] 33.2 g/dL 32-36 [facility] Mean platelet volume determi nationOrdered By: ED PROVIDER on 03-17-2025 Platelet mean volume (Bld) [Entitic vol] 9.7 fL 6.2-12.0 [facility] Mean platelet volume determi nationOrdered By: Omid Foley on 03-17-2025 Platelet mean volume (Bld) [Entitic vol] 10.7 fL 6.2-12.0 [facility] Monocyte percentageOrdered B y: ED PROVIDER on 03-17-2025 Monocytes/100 WBC (Bld) 8.6 % 0-10 [facility] Monocyte percentageOrdered B y: Omid Foley on 03-17-2025 Monocytes/100 WBC (Bld) 8.0 % 0-10 [facility] Neutrophil percentageOrdered By: ED PROVIDER on 03-17-2025 Neutrophils/100 WBC (Bld) 49.1 % 47-70 [facility] Neutrophil percentageOrdered By: Omid Foley on 03-17-2025 Neutrophils/100 WBC (Bld) 39.9 % Low 47-70 [facility] Nucleated red blood cell per centageOrdered By: ED PROVIDER on 03-17-2025 Nucleated RBC/100 WBC (Bld) [Ratio] 0 % 0-5 [facility] Nucleated red blood cell per centageOrdered By: Omid Foley on 03-17-2025 Nucleated RBC/100 WBC (Bld) [Ratio] 0 % 0-5 [facility] Platelet countOrdered By: ED PROVIDER on 03-17-2025 Platelets (Bld) [#/Vol] 247 10*3/uL 150-450 [facility] Platelet countOrdered By: Benton Foley on 03-17-2025 Platelets (Bld) [#/Vol] 267 10*3/uL 150-450 [facility] Potassium (Unsp spec) [Mass/ Vol]Ordered By: Omid Foley on 03-17-2025 Potassium [Moles/Vol] 3.9 mmol/L 3.3-5.1 [facility] Comment on above: Hemolysis present, R esults could be affected. Potassium measurement (mass/ volume)Ordered By: Dwight Patricia on 03-17-2025 Potassium (Unsp spec) [Mass/Vol] 3.9 mmol/L 3.3-5.1 [facility] Potassium measurement (mass/ volume)Ordered By: Omid Foley on 03-17-2025 Potassium (Unsp spec) [Mass/Vol] 3.9 mmol/L 3.3-5.1 [facility] Comment on above: Hemolysis present, R esults could be affected. RBC Auto (Bld) [#/Vol]Ordere d By: ED PROVIDER on 03-17-2025 RBC (Bld) [#/Vol] 4.91 10*6/uL 4.2-5.4 [facility] RBC Auto (Bld) [#/Vol]Ordere d By: Omid Foley on 03-17-2025 RBC (Bld) [#/Vol] 5.29 10*6/uL 4.2-5.4 [facility] Serum creatinine measurement (mass/volume)Ordered By: Dwight Patricia on 03-17-2025 Creatinine [Mass/Vol] 0.86 mg/dL 0.70-1.20 [facility] Comment on above: Performed By: #### L 501.4021, L500.2500, L100.0100 #### [facility] [address] [place], [address] Serum creatinine measurement (mass/volume)Ordered By: Omid Foley on 03-17-2025 Creatinine [Mass/Vol] 1.13 mg/dL 0.70-1.20 [facility] Serum glucose measurement (m ass/volume)Ordered By: Dwight aPtricia on 03-17-2025 Glucose [Mass/Vol] 115 mg/dL High 70-99 [facility] Comment on above: Performed By: #### L 501.4021, L500.2500, L100.0100 #### [facility] [address] [place], [address] Serum glucose measurement (m ass/volume)Ordered By: Omid Foley on 03-17-2025 Glucose [Mass/Vol] 138 mg/dL High 70-99 [facility] Serum or plasma calcium balaji urement (mass/volume)Ordered By: Dwight Davey on 03-17-2025 Calcium [Mass/Vol] 9.3 mg/dL 7.6-11.0 [facility] Comment on above: Performed By: #### L 501.4021, L500.2500, L100.0100 #### [facility] [address] [place], [address] Serum or plasma calcium balaji urement (mass/volume)Ordered By: Omid Foley on 03-17-2025 Calcium [Mass/Vol] 9.6 mg/dL 7.6-11.0 [facility] Serum or plasma urea nitroge n measurement (mass/volume)Ordered By: Dwight Patricia on 03-17-2025 Urea nitrogen [Mass/Vol] 17 mg/dL 03-12 [facility] Comment on above: Performed By: #### L 501.4021, L500.2500, L100.0100 #### [facility] [address] [place], [address] Serum or plasma urea nitroge n measurement (mass/volume)Ordered By: Omid Foley on 03-17-2025 Urea nitrogen [Mass/Vol] 15 mg/dL 03-12 [facility] Sodium levelOrdered By: Terry Patricia on 03-17-2025 Sodium [Moles/Vol] 138 mmol/L 133-145 [facility] Comment on above: Performed By: #### L 501.4021, L500.2500, L100.0100 #### [facility] [address] [place], [address] Sodium levelOrdered By: Graham Foley on 03-17-2025 Sodium [Moles/Vol] 138 mmol/L 133-145 [facility] Troponin T.cardiac [Mass/vol ume] in Serum or Plasma by High sensitivity methodOrdered By: Dwight Patricia on 03-17-2025 Troponin T.cardiac High sensitivity method [Mass/Vol] 25 ng/L High <14 [facility] White blood cell (WBC) count Ordered By: ED PROVIDER on 03-17-2025 WBC (Bld) [#/Vol] 9.0 10*3/uL 4.4-11.0 [facility] White blood cell (WBC) count Ordered By: Omid Foley on 03-17-2025 WBC (Bld) [#/Vol] 10.4 10*3/uL 4.4-11.0 [facility] Cardiovascular stress test r eportOrdered By: Jozef Pena on 03-07-2025 Study report [facility] [address] [place] [address] MR#: [id number] Acct: [id number] Name: JOSHUAAL Rep #: [id number] : 1940 84 From: Jozef Pena MD [...] ~ Date Dictated: 03/07/251102 Date Transcribed: 03/07/251102 Hospice Consultant: [place] Signed [facility] Work Phone: Stress Reporton 03-07-2025 Stress Report [facility] [address] [place] [address] MR#: [id number] Acct: [id number] Name: AL LEWIS ANN Rep #: [id number] : 1940 84 From: Jozef Pena MD [...] MD CC: Dr. Jozef Pena MD; Dr. Jacuqie Coleman MD Date Dictated: 03/07/25 110 Date Transcribed: 03/07/251102 Hospice Consultant: [place] Signed Normal [facility] 12 Lead EKG performed by [facility] on 02-23-2025 12 Lead EKG performed by [place] [id number] [place] [address] 12 Lead EKG performed by [facility] 02/23/25 1257 MR#: [id number] Acct: [id number] Name: AL LEWIS ANN Rep #: [id number] : 1940 84 From: Jozef Pena MD Attending Dr: Dr. Jozef ePna MD Status: DEP A MB Ordering Dr: Jozef Pena MD Date: 02/23/25 Location: [facility] Sex: F C Admitted: BMS/12 Lead EKG performed by [facility] ECG Report Interpretation ----Sinus Rhythm - frequent PAC s # PACs = 2.-Left axis -anterior fascicular block. Voltage criteria for LVH (R(aVL) exceeds 1.01 mV). -Poor R-wave progression -may be secondary to left ventricular hypertrophy consider old anterior infarct. - Nonspecific T-abnormality. ABNORMAL Electronically signed on 03/02/2025 at 11:24 by Jozef Pena [email or web address] Software Version [id number] 03/02/25 1130 Date Jozef Pena MD CC: Dr. Jacquie Coleman MD Date Dictated: 02/23/25 1257 Date Transcribed: 02/23/25 1257 Hospice Consultant: [place] Signed Normal [facility] Cardiology Visit Reporton Cardiology Visit Report [facility] [address] [place] [address]. [address] [place] [address] OFFICE VISIT Date of Service: 02/23/25 MR#: [id number] Acct: [id number] Name: JOSHUAAL Rep #: [id number] : 1940 Provider: Dr. Jozef Pena MD Age/Sex: 84/F Location: [facility] Status: Signed HPI HPI History of Present [...] demonstrating sinus bradycardia. She does have a [id number] score of at least 3 and was [...] Oximetry (%) 96 Intake Visit Reasons: S/P [facility] 12/31 ([facility] ER) Assessment Analyst Required: No Accompanied by: Granddaughter Is patient [...] normal bilateral (more content not included)... Normal [facility] BNP,B-Type NATRIURETIC PEPTI Kaylah 01-13-2025 Natriuretic peptide B (Bld) [Mass/Vol] 85.3 pg/mL Normal 0-100 [facility] Comment on above: Performed By: #### L 501.4021, L500.2500, L100.0100 #### [facility] [address] [place], [address] BNP (brain natriuretic pepti de measurement)Ordered By: Jacquie Coleman on 01-11-2025 Natriuretic peptide B (Bld) [Mass/Vol] 85.3 pg/mL 0-100 [facility] Basic Metabolic Profile (BMP )on 01-11-2025 BUN/CRE 15.2 RATIO Normal 10-20 [facility] Comment on above: Performed By: #### L 501.4021, L500.2500, L100.0100 #### [facility] [address] [place], [address] CA,Total 9.6 mg/dL Normal 8.5-10.1 [facility] Comment on above: Performed By: #### L 501.4021, L500.2500, L100.0100 #### [facility] [address] [place], [address] Chloride [Moles/Vol] 103 mmol/L Normal 98-107 [facility] Comment on above: Performed By: #### L 501.4021, L500.2500, L100.0100 #### [facility] [address] [place], [address] CO2 [Moles/Vol] 27.0 mmol/L Normal 21.0-32.0 [facility] Comment on above: Performed By: #### L 501.4021, L500.2500, L100.0100 #### [facility] [address] [place], [address] Creatinine [Mass/Vol] 0.86 mg/dL Normal 0.55-1.02 [facility] Comment on above: Result Comment: The validity of the calculated GFR GFRAA in patients over 70 years has not been determined. Clinical correlation is essential. Performed By: #### L 501.4021, L500.2500, L100.0100 #### [facility] [address] [place], [address] EST GFR - AA 81 mL/min Normal >60 [facility] Comment on above: Result Comment: Afri can [place] GFR Calc Performed By: #### L 501.4021, L500.2500, L100.0100 #### [facility] [address] [place], [address] GAP 6 Normal 5-15 [facility] Comment on above: Performed By: #### L 501.4021, L500.2500, L100.0100 #### [facility] [address] [place], [address] GFR/1.73 sq M.predicted among non-blacks MDRD (S/P/Bld) [Vol rate/Area] 67 mL/min/{1.73_m2} Normal >60 [facility] Comment on above: Result Comment: Non- GFR Calc Performed By: #### L 501.4021, L500.2500, L100.0100 #### [facility] [address] [place], [address] Glucose [Mass/Vol] 109 mg/dL High 74-106 [facility] Comment on above: Result Comment: Fast ing Glucose result from 100 to 125 mg/dL suggests IMPAIRED HOMEOSTASIS per A.D.A. criteria. Performed By: #### L 501.4021, L500.2500, L100.0100 #### [facility] [address] [place], [address] Potassium [Moles/Vol] 4.1 mmol/L Normal 3.5-5.1 [facility] Comment on above: Performed By: #### L 501.4021, L500.2500, L100.0100 #### [facility] [address] [place], [address] Sodium [Moles/Vol] 136 mmol/L Normal 136-145 [facility] Comment on above: Performed By: #### L 501.4021, L500.2500, L100.0100 #### [facility] [address] [place], [address] Urea nitrogen [Mass/Vol] 13 mg/dL Normal -18 [facility] Comment on above: Performed By: #### L 501.4021, L500.2500, L100.0100 #### [facility] [address] [place], [address] Blood urea nitrogen (BUN)/cr eatinine ratioOrdered By: Jacquie Coleman on 01-11-2025 Urea nitrogen/Creatinine [Mass ratio] 15.2 mg/mg 10-20 [facility] Carbon dioxide measurementOr dered By: Jacquie Coleman on 01-11-2025 CO2 [Moles/Vol] 27.0 mmol/L 21.0-32.0 [facility] Chloride measurementOrdered By: Jacquie Coleman on 01-11-2025 Chloride [Moles/Vol] 103 mmol/L 98-107 [facility] Direct serum free thyroxine (FT4) measurementOrdered By: Jacquie Coleman on 01-11-2025 Free T4 [Mass/Vol] 0.92 ng/dL 0.76-1.46 [facility] Estimated glomerular filtrat ion rate (GFR) AmericanOrdered By: Jacquie Coleman on 01-11-2025 Estimated GFR (MDRD) Amer 81 mL/min >60 [facility] Comment on above: GFR Calc Glomerular filtration rate ( GFR) estimationOrdered By: Jacquie Coleman on 01-11-2025 Estimated GFR (MDRD) Non-Af Amer 67 mL/min >60 [facility] Comment on above: Non- GFR Calc GFR/1.73 sq M.predicted among non-blacks MDRD (S/P/Bld) [Vol rate/Area] 67 mL/min/{1.73_m2} >60 [facility] Comment on above: Non- GFR Calc Glucose measurementOrdered B y: Jacquie Coleman on 01-11-2025 Glucose [Mass/Vol] 109 mg/dL High 74-106 [facility] Comment on above: Fasting Glucose resu lt from 100 to 125 mg/dL suggests IMPAIRED HOMEOSTASIS per A.D.A. criteria. Potassium measurementOrdered By: Jacquie Coleman on 01-11-2025 Potassium [Moles/Vol] 4.1 mmol/L 3.5-5.1 [facility] Serum anion gap measurementO rdered By: Jacquie Coleman on 01-11-2025 Anion gap [Moles/Vol] 6 mmol/L 5-15 [facility] Serum or plasma calcium balaji urement (mass/volume)Ordered By: Jacquie Coleman on 01-11-2025 Calcium [Mass/Vol] 9.6 mg/dL 8.5-10.1 [facility] Serum or plasma creatinine m easurement (mass/volume)Ordered By: Jacquie Coleman on 01-11-2025 Creatinine [Mass/Vol] 0.86 mg/dL 0.55-1.02 [facility] Comment on above: The validity of the calculated GFR & GFRAA in patients over 70 years has not been determined. Clinical correlation is essential. Serum or plasma thyroid stim ulating hormone (TSH) measurement (units/volume)Ordered By: Jacquie Coleman on 01-11-2025 TSH Qn 2.860 uIU/mL 0.358-3.740 [facility] Serum or plasma urea nitroge n measurement (mass/volume)Ordered By: Jacquie Coleman on 01-11-2025 Urea nitrogen [Mass/Vol] 13 mg/dL - [facility] Sodium levelOrdered By: Atiya Coleman on 01-11-2025 Sodium [Moles/Vol] 136 mmol/L 136-145 [facility] T4 Free Directon 01-11-2025 T4 FREE DIRECT 0.92 ng/dL Normal 0.76-1.46 [facility] Comment on above: Performed By: #### L 501.4021, L500.2500, L100.0100 #### [facility] [place], [address] TSH QnOrdered By: Jacquie Morton jeferson on 01-11-2025 Thyroid Stimulating Hormone (TSH) 2.860 uIU/mL 0.358-3.740 [facility] Thyroid Stim Hormone (TSH)on 01-11-2025 TSH 2.860 uIU/mL Normal 0.358-3.740 [facility] Comment on above: Performed By: #### L 501.4021, L500.2500, L100.0100 #### [facility] [address] [place], [place], [address] Absolute neutrophil countOrd ered By: [facility] Kian on 12-31-2024 Neutrophils (Bld) [#/Vol] 3.6 10*3/uL 2.0-7.7 [facility] Albumin to globulin ratioOrd ered By: Edda Langston on 12-31-2024 Albumin/Globulin [Mass ratio] 0.8 {ratio} Low 0.9-2.4 [facility] Basophil percentageOrdered B y: Edda Langston on 12-31-2024 Basophils/100 WBC (Bld) 0.8 % 0-1 [facility] Bilirubin, totalOrdered By: Edda Kian on 12-31-2024 Bilirubin [Mass/Vol] 0.30 mg/dL 0.20-1.00 [facility] Comment on above: For patients on eltr ombopag therapy, use of Dimension [place] TBIL is not recommended. Blood urea nitrogen (BUN)/cr eatinine ratioOrdered By: Edda Langston on 12-31-2024 Urea nitrogen/Creatinine [Mass ratio] 16.7 mg/mg 10-20 [facility] CBC W/Diff, Automatedon Erythrocyte distribution width (RBC) [Ratio] 13.7 % Normal 11.6-14.6 [facility] Comment on above: Performed By: #### L 501.5425, L100.0100, L500.2500 #### [facility] [address] [place], [place], [address] Platelet mean volume (Bld) [Entitic vol] 10.3 fL Normal 6.2-12.0 [facility] Comment on above: Performed By: #### L 501.5425, L100.0100, L500.2500 #### [facility] [address] [place], [address] Carbon dioxide measurementOr dered By: Edda Langston on 12-31-2024 CO2 [Moles/Vol] 26.0 mmol/L 21.0-32.0 [facility] Chloride measurementOrdered By: Edda Langston on 12-31-2024 Chloride [Moles/Vol] 108 mmol/L High 98-107 [facility] Comprehensive Metabolic Prof ilon 12-31-2024 Albumin [Mass/Vol] 3.3 g/dL Normal 3.2-5.0 [facility] Comment on above: Performed By: #### L 501.5425, L100.0100, L500.2500 #### [facility] [address] [place], [address] Albumin/Globulin [Mass ratio] 0.8 {ratio} Low 0.9-2.4 [facility] Comment on above: Performed By: #### L 501.5425, L100.0100, L500.2500 #### [facility] [address] [place], [address] ALK P 74 U/L Normal 45-117 [facility] Comment on above: Performed By: #### L 501.5425, L100.0100, L500.2500 #### [facility] [address] [place], [address] ALT [Catalytic activity/Vol] 26 U/L Normal 13-56 [facility] Comment on above: Performed By: #### L 501.5425, L100.0100, L500.2500 #### [facility] [address] [place], [address] AST [Catalytic activity/Vol] 19 U/L Normal 15-37 [facility] Comment on above: Performed By: #### L 501.5425, L100.0100, L500.2500 #### [facility] [address] [place], [address] Bilirubin [Mass/Vol] 0.30 mg/dL Normal 0.20-1.00 [facility] Comment on above: Result Comment: For patients on eltrombopag therapy, use of Dimension [place] TBIL is not recommended. Performed By: #### L 501.5425, L100.0100, L500.2500 #### [facility] [address] [place], [address] BUN/CRE 16.7 RATIO Normal 10-20 [facility] Comment on above: Performed By: #### L 501.5425, L100.0100, L500.2500 #### [facility] [address] [place], [address] CA,Total 8.8 mg/dL Normal 8.5-10.1 [facility] Comment on above: Performed By: #### L 501.5425, L100.0100, L500.2500 #### [facility] [address] [place], [address] Chloride [Moles/Vol] 108 mmol/L High 98-107 [facility] Comment on above: Performed By: #### L 501.5425, L100.0100, L500.2500 #### [facility] [address] [place], [address] CO2 [Moles/Vol] 26.0 mmol/L Normal 21.0-32.0 [facility] Comment on above: Performed By: #### L 501.5425, L100.0100, L500.2500 #### [facility] [address] [place], [address] Creatinine [Mass/Vol] 0.78 mg/dL Normal 0.55-1.02 [facility] Comment on above: Result Comment: The validity of the calculated GFR GFRAA in patients over 70 years has not been determined. Clinical correlation is essential. Performed By: #### L 501.5425, L100.0100, L500.2500 #### [facility] [address] [place], [address] ECRCL 50.66 ml/min Normal [facility] Comment on above: Performed By: #### L 501.5425, L100.0100, L500.2500 #### [facility] [address] [place], [address] EST GFR - AA 91 mL/min Normal >60 [facility] Comment on above: Result Comment: Afri can [place] GFR Calc Performed By: #### L 501.5425, L100.0100, L500.2500 #### [facility] [address] [place], [address] GAP 6 Normal 5-15 [facility] Comment on above: Performed By: #### L 501.5425, L100.0100, L500.2500 #### [facility] [address] [place], [address] GFR/1.73 sq M.predicted among non-blacks MDRD (S/P/Bld) [Vol rate/Area] 75 mL/min/{1.73_m2} Normal >60 [facility] Comment on above: Result Comment: Non- GFR Calc Performed By: #### L 501.5425, L100.0100, L500.2500 #### [facility] Laboratory [address] [place], [address] Globulin (S) [Mass/Vol] 4.0 g/dL Normal 2.2-4.2 [facility] Comment on above: Performed By: #### L 501.5425, L100.0100, L500.2500 #### [facility] Laboratory [address] [place], [address] Glucose [Mass/Vol] 106 mg/dL Normal 74-106 [facility] Comment on above: Result Comment: Fast ing Glucose result from 100 to 125 mg/dL suggests IMPAIRED HOMEOSTASIS per A.D.A. criteria. Performed By: #### L 501.5425, L100.0100, L500.2500 #### [facility] Laboratory [address], [address] Potassium [Moles/Vol] 3.7 mmol/L Normal 3.5-5.1 [facility] Comment on above: Performed By: #### L 501.5425, L100.0100, L500.2500 #### [facility] Laboratory [address] [place], [address] Sodium [Moles/Vol] 139 mmol/L Normal 136-145 [facility] Comment on above: Performed By: #### L 501.5425, L100.0100, L500.2500 #### [facility] Laboratory [address], [address] T PROT 7.3 g/dL Normal 6.4-8.2 [facility] Comment on above: Performed By: #### L 501.5425, L100.0100, L500.2500 #### [facility] Laboratory [address] [place], [address] Urea nitrogen [Mass/Vol] 13 mg/dL Normal 7-18 [facility] Comment on above: Performed By: #### L 501.5425, L100.0100, L500.2500 #### [facility] Laboratory [address] [place], [address] Discharge Instructionon Discharge Instruction [facility] Medical Records Department [address] [place] [address] Instructions for Home/Discharge Instructions 12/31/24 1723 MR#: [id number] Acct: [id number] Name: AL LEWIS Rep #: [id number] : 1940 84 From: Elisabet Fishman MD PCP: Dr. Jacquie Coleman MD Status:ADM KARLA Discharge Instructions Diet [...] MD; Dr. Jacquie Coleman MD Signed Normal [facility] Echo Completeon 12-31-2024 Echo [facility] Cardiovascular Services [address] [place] [address] Echo Complete 12/31/24 0904 MR#: [id number] Acct: [id number] Name: AL LEWIS Rep #: [id number] : 1940 84 From: Jozef Pena MD Attending Dr: Dr. Elisabet Fishman MD Status: AD M KARLA Ordering Dr: Edda Langston MD Date: 12/31/24 Location: [facility] Sex: F C Admitted: 12/30/24 Reason For [...] Physician: Dwight Patricia Performed By: Jessi Trejo [facility] 12/31/241636 Date Jozef Pena MD CC: Dr. Dwight Patricia DO; Dr. Edda Langston MD; Dr. Jacquie Coleman MD; Dr. Elisabet Fishman MD Date Dictated: 12/31/2404 Date Transcribed: 12/31/241636 Hospice Consultant: Nadia [facility] Eosinophil percentageOrdered By: Edda Langston on 12-31-2024 Eosinophils/100 WBC (Bld) 2.0 % 0-5 [facility] Erythrocyte distribution wid th (RBC) [Ratio]Ordered By: Edda Langston on 12-31-2024 Erythrocyte distribution width (RBC) [Entitic vol] 44.9 fL High 35.1-43.9 [facility] Erythrocyte distribution wid th ratioOrdered By: Edda Langston on 12-31-2024 Erythrocyte distribution width (RBC) [Ratio] 13.7 % 11.6-14.6 [facility] Estimated glomerular filtrat ion rate (GFR) AmericanOrdered By: Edda Langston on 12-31-2024 Estimated GFR (MDRD) Amer 91 mL/min >60 [facility] Comment on above: GFR Calc Estimation of creatinine jenniffer aranceOrdered By: Edda Langston on 12-31-2024 Estimated Creatinine Clearance Calc 50.66 ml/min [facility] Glomerular filtration rate ( GFR) estimationOrdered By: Edda Langston on 12-31-2024 Estimated GFR (MDRD) Non-Af Amer 75 mL/min >60 [facility] Comment on above: Non- GFR Calc Glucose measurementOrdered B y: Edda Langston on 12-31-2024 Glucose [Mass/Vol] 106 mg/dL 74-106 [facility] Comment on above: Fasting Glucose resu lt from 100 to 125 mg/dL suggests IMPAIRED HOMEOSTASIS per A.D.A. criteria. Hematocrit Auto (Bld) [Volum e fraction]Ordered By: Edda Langston on 12-31-2024 Hematocrit (Bld) [Volume fraction] 39.8 % 37-47 [facility] Hemoglobin measurementOrdere d By: Edda Langston on 12-31-2024 Hemoglobin (Bld) [Mass/Vol] 13.3 g/dL 12.0-15.0 [facility] Immature granulocytes/100 WB C Auto (Bld)Ordered By: Edda Langston on 12-31-2024 Immature granulocytes/100 WBC (Bld) 0.300 % 0.0-0.9 [facility] Comment on above: IG% - Immature Granu locytes (promyelocytes, myelocytes and metamyelocytes) > 1% indicates that a LEFT SHIFT is Present. L501.4020on 12-31-2024 TROPONIN-I HS 31 pg/mL Normal 3.0-54.0 [facility] Comment on above: Order Comment: 'TROP ' Serial specimen #1, #2 or #3: 3 Result Comment: Edy smith Note: New Test Units and Gender Specific Reference Ranges. For more information see Policy Stat Procedure [place] High Sensitivity Troponin (TNIH) and attachments. Performed By: #### L 501.4021, L500.2500, L100.0100 #### [facility] Laboratory [address] [place], [address] Laboratory - Chemistry and C hemistry - challengeOrdered By: Edda Kian on 12-31-2024 AST [Catalytic activity/Vol] 19 U/L 15-37 [facility] Lymphocytes Auto (Unsp spec) [#/Vol]Ordered By: Edda Kian on 12-31-2024 Lymphocytes (Bld) [#/Vol] 2.07 10*3/uL 0.83-4.51 [facility] Lymphocytes/100 WBC Auto (Un sp spec)Ordered By: Edda Kian on 12-31-2024 Lymphocytes/100 WBC (Bld) 32.1 % 19-41 [facility] M100.019on 12-31-2024 M100.019 Negative Normal [facility] Comment on above: Performed By: #### L 501.4021, L500.2500, L100.0100 #### [facility] Laboratory [address] [place], [place], [address] MCV (mean corpuscular volume ) determinationOrdered By: Edda Langston on 12-31-2024 MCV (RBC) [Entitic vol] 89.6 fL 81-99 [facility] Mean corpuscular hemoglobin (MCH) determinationOrdered By: Edda Kian on 12-31-2024 MCH (RBC) [Entitic mass] 30.0 pg 27.0-32.0 [facility] Mean corpuscular hemoglobin concentration (MCHC) determinationOrdered By: Edda Langston on 12-31-2024 MCHC (RBC) [Mass/Vol] 33.4 g/dL 32-36 [facility] Mean platelet volume determi nationOrdered By: Edda Langston on 12-31-2024 Platelet mean volume (Bld) [Entitic vol] 10.3 fL 6.2-12.0 [facility] Monocyte percentageOrdered B y: on 12-31-2024 Monocytes/100 WBC (Bld) 8.2 % 0-10 [facility] Neutrophil percentageOrdered By: [facility] White on 12-31-2024 Neutrophils/100 WBC (Bld) 56.6 % 47-70 [facility] Nucleated red blood cell per centageOrdered By: Edda White on 12-31-2024 Nucleated RBC/100 WBC (Bld) [Ratio] 0 % 0-5 [facility] Platelet countOrdered By: Ania yi Kian on 12-31-2024 Platelets (Bld) [#/Vol] 214 10*3/uL 150-450 [facility] Potassium measurementOrdered By: [facility] Kian on 12-31-2024 Potassium [Moles/Vol] 3.7 mmol/L 3.5-5.1 [facility] Procalcitoninon 12-31-2024 Procalcitonin 0.05 ng/mL Normal 0.00-0.09 [facility] Comment on above: Result Comment: A procalcitonin [...] ng/mL are obtained. Performed By: #### L 501.5462, L100.0100, L500.2500 #### [facility] Laboratory [facility] [address] [place], [place], [address] Procalcitonin [Mass/Vol]Orde red By: Edda Langston on 12-31-2024 Procalcitonin 0.05 ng/mL 0.00-0.09 [facility] Comment on above: A procalcitonin (PCT ) [...] 12-31-2024 RBC (Bld) [#/Vol] 4.44 10*6/uL 4.2-5.4 [facility] RESPIRATORY PANEL MOLECULARo n 12-31-2024 RP PANEL ADENOVIRUS Not Detected INFLUENZA A Not Detected INFLUENZA A (SUBTYPE H1) Not Detected INFLUENZA A (SUBTYPE H3) Not Detected INFLUENZA B Not Detected HUMAN METAPHNEUMO Not Detected PARAINFLUENZA 1 Not Detected PARAINFLUENZA 2 Not Detected PARAINFLUENZA 3 Not Detected PARAINFLUENZA 4 Not Detected RHINOVIRUS Not Detected RSV A Not Detected RSV B Not Detected Normal [facility] Comment on above: Performed By: #### L 501.5465, L100.0100, L500.2500 #### [facility] Laboratory [address] [place], [place], [address] Serum anion gap measurementO rdered By: Edda Langston on 12-31-2024 Anion gap [Moles/Vol] 6 mmol/L 5-15 [facility] Serum globulin measurementOr dered By: Edda Langston 12-31-2024 Globulin (S) [Mass/Vol] 4.0 g/dL 2.2-4.2 [facility] Serum or plasma alanine leal otransferase (ALT) measurementOrdered By: Edda Langston on 12-31-2024 ALT [Catalytic activity/Vol] 26 U/L 13-56 [facility] Serum or plasma albumin balaji urement (mass/volume)Ordered By: Edda Langston on 12-31-2024 Albumin [Mass/Vol] 3.3 g/dL 3.2-5.0 [facility] Serum or plasma alkaline maico sphatase measurementOrdered By: Edda Langston on 12-31-2024 ALP [Catalytic activity/Vol] 74 U/L 45-117 [facility] Serum or plasma calcium balaji urement (mass/volume)Ordered By: Edda Langston on 12-31-2024 Calcium [Mass/Vol] 8.8 mg/dL 8.5-10.1 [facility] Serum or plasma creatinine m easurement (mass/volume)Ordered By: Edda Langston on 12-31-2024 Creatinine [Mass/Vol] 0.78 mg/dL 0.55-1.02 [facility] Comment on above: The validity of the calculated GFR & GFRAA in patients over 70 years has not been determined. Clinical correlation is essential. Serum or plasma urea nitroge n measurement (mass/volume)Ordered By: Edda Langston on 12-31-2024 Urea nitrogen [Mass/Vol] 13 mg/dL 7-18 [facility] Sodium levelOrdered By: Alyu mn Kian on 12-31-2024 Sodium [Moles/Vol] 139 mmol/L 136-145 [facility] Total proteinOrdered By: Aly umn Kian on 12-31-2024 Protein [Mass/Vol] 7.3 g/dL 6.4-8.2 [facility] Troponin IOrdered By: Edda Langston on 12-31-2024 Troponin I High Sensitivity 31 pg/mL 3.0-54.0 [facility] Comment on above: Please Note: [place] t Units and Gender Specific Reference Ranges. For more information see Policy Stat Procedure [place] High Sensitivity Troponin (TNIH) and attachments. White blood cell (WBC) count Ordered By: Edda Langston on 12-31-2024 WBC (Bld) [#/Vol] 6.4 10*3/uL 4.4-11.0 [facility] 12 Lead EKGon 12-30-2024 12 Lead EKG [facility] Cardiovascular Services [address] [place] [address] 12 Lead EKG 12/30/24 2303 MR#: [id number] Acct: [id number] Name: AL LEWIS ANN Rep #: [id number] : 1940 84 From: Jozef Pena MD Attending Dr: Dr. Elisabet Fishman MD Status: SHE ACOSTA Ordering Dr: Dwight Patricia DO Date: 5 Location: [facility] Sex: F C Admitted: 12/30/24 Test Reason [...] Abnormal ECG Confirmed by JEAN CAN, JOZEF ([id number]), proposal editor KEYSHA RICCI ([id number]) on 01/01/2025 8:06:11 AM Referred By: Dwight Patricia Confirmed By: JOZEF PENA MD 01/01/25 0806 Date Jozef Pena MD CC: Dr. Dwight Patricia DO; Dr. Jacquie Coleman MD; Dr. Elisabet Fishman MD Signed [facility] 12 Lead EKG [facility] Cardiovascular Services [address] [place] [address] 12 Lead EKG 12/30/242024 MR#: [id number] Acct: [id number] Name: AL LEWIS ANN Rep #: [id number] : 1940 84 From: Jozef Pena MD Attending Dr: Dr. Elisabet Fishman MD Status: SHE Wooten KARLA Ordering Dr: Dwight Patricia DO Date: 5 Location: [facility] Sex: F C Admitted: 12/30/24 Test Reason [...] Abnormal ECG Confirmed by JEAN CAN, JOZEF ([id number]), proposal editor KEYSHA RICCI ([id number]) on 01/01/2025 8:06:02 AM Referred By: Dwight Patricia Confirmed By: JOZEF PENA MD 01/01/25 0806 Date Jozef Pena MD CC: Dr. Dwight Patricia DO; Dr. Jacquie Coleman MD; Dr. Elisabet Fishman MD Signed Normal [facility] BNP (brain natriuretic pepti de measurement)Ordered By: Dwight Patricia on 12-30-2024 Natriuretic peptide B (Bld) [Mass/Vol] 379.8 pg/mL High 0-100 [facility] BNP,B-Type NATRIURETIC PEPTI Kaylah 12-30-2024 Natriuretic peptide B (Bld) [Mass/Vol] 379.8 pg/mL High 0-100 [facility] Comment on above: Performed By: #### L 501.4021, L500.2500, L100.0100 #### [facility] Laboratory [address] [place], [address] Basic Metabolic Profile (BMP )on 12-30-2024 BUN/CRE 14.4 RATIO Normal 10-20 [facility] Comment on above: Performed By: #### L 501.5425, L100.0100, L500.2500 #### [facility] Laboratory [address] [place], [address] CA,Total 9.5 mg/dL Normal 8.5-10.1 [facility] Comment on above: Performed By: #### L 501.5425, L100.0100, L500.2500 #### [facility] Laboratory [address] [place], [address] Chloride [Moles/Vol] 106 mmol/L Normal 98-107 [facility] Comment on above: Performed By: #### L 501.5425, L100.0100, L500.2500 #### [facility] Laboratory [address] [place], [address] CO2 [Moles/Vol] 24.0 mmol/L Normal 21.0-32.0 [facility] Comment on above: Performed By: #### L 501.5425, L100.0100, L500.2500 #### [facility] Laboratory [address] [place], [address] Creatinine [Mass/Vol] 0.97 mg/dL Normal 0.55-1.02 [facility] Comment on above: Result Comment: The validity of the calculated GFR GFRAA in patients over 70 years has not been determined. Clinical correlation is essential. Performed By: #### L 501.5425, L100.0100, L500.2500 #### [facility] Laboratory [address] [place], [address] ECRCL 42.31 ml/min Normal [facility] Comment on above: Performed By: #### L 501.5425, L100.0100, L500.2500 #### [facility] Laboratory [address] [place], [address] EST GFR - AA 70 mL/min Normal >60 [facility] Comment on above: Result Comment: Afri can [place] GFR Calc Performed By: #### L 501.5425, L100.0100, L500.2500 #### [facility] Laboratory [address] [place], [address] GAP 8 Normal 5-15 [facility] Comment on above: Performed By: #### L 501.5425, L100.0100, L500.2500 #### [facility] Laboratory [address] [place], [address] GFR/1.73 sq M.predicted among non-blacks MDRD (S/P/Bld) [Vol rate/Area] 58 mL/min/{1.73_m2} Low >60 [facility] Comment on above: Result Comment: Non- GFR Calc Performed By: #### L 501.5425, L100.0100, L500.2500 #### [facility] Laboratory [address] [place], [address] Glucose [Mass/Vol] 143 mg/dL High 74-106 [facility] Comment on above: Result Comment: Fast ing Glucose result greater than or equal to 126 mg/dL suggests DIABETES MELLITUS per A.D.A. criteria. Performed By: #### L 501.5425, L100.0100, L500.2500 #### [facility] Laboratory [address] [place], [address] Potassium [Moles/Vol] 4.6 mmol/L Normal 3.5-5.1 [facility] Comment on above: Result Comment: Mode rate Hemolysis, Result may be falsely increased. Performed By: #### L 501.5425, L100.0100, L500.2500 #### [facility] Laboratory [address] [place], [address] Sodium [Moles/Vol] 138 mmol/L Normal 136-145 [facility] Comment on above: Performed By: #### L 501.5425, L100.0100, L500.2500 #### [facility] Laboratory [address] [place], [address] Urea nitrogen [Mass/Vol] 14 mg/dL Normal 7-18 [facility] Comment on above: Performed By: #### L 501.5425, L100.0100, L500.2500 #### [facility] Laboratory [address] [place], [address] CBC W/Diff, Automatedon 02-0 6-2025 Absolute Lymph 3.92 X10 3/uL Normal 0.83-4.51 [facility] Comment on above: Performed By: #### L 501.5425, L100.0100, L500.2500 #### [facility] Laboratory [address] [place], [address] Absolute Neut 3.8 X10 3/uL Normal 2.0-7.7 [facility] Comment on above: Performed By: #### L 501.5425, L100.0100, L500.2500 #### [facility] Laboratory [address] [place], [address] Basophils/100 WBC (Bld) 0.7 % Normal 0-1 [facility] Comment on above: Performed By: #### L 501.5425, L100.0100, L500.2500 #### [facility] Laboratory [address] [place], [address] Eosinophils/100 WBC (Bld) 2.1 % Normal 0-5 [facility] Comment on above: Performed By: #### L 501.5425, L100.0100, L500.2500 #### [facility] Laboratory [address] [place], [address] Erythrocyte distribution width (RBC) [Ratio] 13.7 % Normal 11.6-14.6 [facility] Comment on above: Performed By: #### L 501.5425, L100.0100, L500.2500 #### [facility] Laboratory [address] [place], [address] Hematocrit (Bld) [Volume fraction] 44.2 % Normal 37-47 [facility] Comment on above: Performed By: #### L 501.5425, L100.0100, L500.2500 #### [facility] Laboratory [address] [place], [address] Hemoglobin (Bld) [Mass/Vol] 14.8 g/dL Normal 12.0-15.0 [facility] Comment on above: Performed By: #### L 501.5425, L100.0100, L500.2500 #### [facility] Laboratory [address] [place], [address] IG% 0.200 Normal 0.0-0.9 [facility] Comment on above: Result Comment: IG% - Immature Granulocytes (promyelocytes, myelocytes and metamyelocytes) > 1% indicates that a LEFT SHIFT is Present. Performed By: #### L 501.5425, L100.0100, L500.2500 #### [facility] Laboratory [address] [place], [address] Lymphocytes/100 WBC (Bld) 45.2 % High 19-41 [facility] Comment on above: Performed By: #### L 501.5425, L100.0100, L500.2500 #### [facility] Laboratory [address] [place], [address] MCH (RBC) [Entitic mass] 30.0 pg Normal 27.0-32.0 [facility] Comment on above: Performed By: #### L 501.5425, L100.0100, L500.2500 #### [facility] Laboratory [address] [place], [address] MCHC (RBC) [Mass/Vol] 33.5 g/dL Normal 32-36 [facility] Comment on above: Performed By: #### L 501.5425, L100.0100, L500.2500 #### [facility] Laboratory [address] [place], [address] MCV (RBC) [Entitic vol] 89.5 fL Normal 81-99 [facility] Comment on above: Performed By: #### L 501.5425, L100.0100, L500.2500 #### [facility] Laboratory [address] [place], [address] Monocytes/100 WBC (Bld) 7.8 % Normal 0-10 [facility] Comment on above: Performed By: #### L 501.5425, L100.0100, L500.2500 #### [facility] Laboratory [address] [place], [address] Neutrophils/100 WBC (Bld) 44.0 % Low 47-70 [facility] Comment on above: Performed By: #### L 501.5425, L100.0100, L500.2500 #### [facility] Laboratory [address] [place], [address] Nucleated RBC (Bld) [#/Vol] 0 10*3/uL Normal 0-5 [facility] Comment on above: Performed By: #### L 501.5425, L100.0100, L500.2500 #### [facility] Laboratory [address] [place], [address] Platelet mean volume (Bld) [Entitic vol] 10.3 fL Normal 6.2-12.0 [facility] Comment on above: Performed By: #### L 501.5425, L100.0100, L500.2500 #### [facility] Laboratory [address] [place], [address] Platelets (Bld) [#/Vol] 241 10*3/uL Normal 150-450 [facility] Comment on above: Performed By: #### L 501.5425, L100.0100, L500.2500 #### [facility] Laboratory [address] [place], [address] RBC (Bld) [#/Vol] 4.94 10*6/uL Normal 4.2-5.4 [facility] Comment on above: Performed By: #### L 501.5425, L100.0100, L500.2500 #### [facility] Laboratory [address] [place], [address] RDW SD 44.7 fl High 35.1-43.9 [facility] Comment on above: Performed By: #### L 501.5425, L100.0100, L500.2500 #### [facility] Laboratory [address] [place], [address] WBC (Bld) [#/Vol] 8.7 10*3/uL Normal 4.4-11.0 [facility] Comment on above: Performed By: #### L 501.5425, L100.0100, L500.2500 #### [facility] Laboratory [address] [place], [address] CTA Chest W/WO Contraston CTA Chest W/WO Contrast [facility] Imaging Services [address] [place] [address] CTA Chest W/WO Contrast MR#: [id number] Acct: [id number] Name: AL LEWIS Rep #: [id number] : 1940 F 84 From: Ad Child MD PCP: Dr. Jacquie Coleman MD Status: [facility] ER Study: CTA Chest W/WO Contrast Date of Exam: 12/30/24 Exam# [id number] Ordering Dr: Dwight Patricia DO PROCEDURE: CTA [...] use of iterative reconstruction technique). Reading Location: [facility] CC: Dr. Dwight Patricia DO; Dr. Jacquie Coleman MD Hospice Consultant: Signed Normal [facility] Chest 1 View (Portable)on Chest 1 View (Portable) [facility] Imaging Services [address] [place] [address] Chest 1 View (Portable) MR#: [id number] Acct: [id number] Name: AL LEWIS Rep #: [id number] : 1940 F 84 From: Ad Child MD PCP: Dr. Jacquie Coleman MD Status: REG ER Study: Chest 1 View (Portable) Date of Exam: 12/30/24 Exam# [id number] Ordering Dr: Dwight Patricia DO PROCEDURE: CHEST 1 VIEW (PORTABLE) REASON FOR EXAM: Chest pain. TECHNIQUE: Frontal view of the chest. COMPARISON: None. FINDINGS: The cardiac and mediastinal contours are normal. The lungs are clear. RAD/Chest 1 View (Portable) IMPRESSION: NEGATIVE SINGLE VIEW OF THE CHEST. Reading Location: [facility] CC: Dr. Dwight Patricia DO; Dr. Jacquie Coleman MD Hospice Consultant: Signed Normal [facility] D-Dimer Quantitative (DVT/PE )on 12-30-2024 D-DIMER QUANT 0.96 FEU/ug/m Invalid Interpretation Code 0.27-0.49 [facility] Comment on above: Result Comment: D-Di cristóbal ELEVATED (>0.49): Additional studies and clinical assessments are indicated to conclude diagnosis of: Deep Vein Thrombosis (DVT) or Pulmonary Embolism (PE) CRITICAL VALUE CALLED TO [facility] 12/30/24 [facility] [employer] [place]. RESULTS READ BACK BY SAME. Performed By: #### L 501.4021, L500.2500, L100.0100 #### [facility] Laboratory [address] [place], [place], [id number] D-dimer measurement for deep venous thrombosisOrdered By: Dwight Patricia on 12-30-2024 D-Dimer Quantitative (PE/DVT) 0.96 FEU/ug/m High 0.27-0.49 [facility] Comment on above: D-Dimer ELEVATED (>0 .49): Additional studies and clinicalassessments are indicated to conclude diagnosis of:Deep Vein Thrombosis (DVT) or Pulmonary Embolism (PE)CRITICAL VALUE CALLED TO [id number]/06/25 [facility] [employer] [place].RESULTS READ BACK BY SAME. Direct serum free thyroxine (FT4) measurementOrdered By: Dwight Patricia on 12-30-2024 Free T4 [Mass/Vol] 0.85 ng/dL 0.76-1.46 [facility] Emergency Department Summary on 12-30-2024 Emergency Department Summary [facility] Medical Records Department [address] [place] [address] Emergency Department Summary 12/30/24 MR#: [id number] Acct: [id number] Name: AL LEWIS ANN Rep #: [id number] : 1940 84 From: Dwight Patricia DO [...] intact Psych: Cooperative, appropriate mood and affect [facility] Medical History (Updated 12/30/24 @ 23:08 by [...] CTA ordere (more content not included)... Normal [facility] H&P Exam - Hospitalist [facility] Medical Records Department [address] [place] [address] H P Exam - Hospitalist 12/30/24 2307 MR#: [id number] Acct: [id number] Name: AL LEWIS Rep #: [id number] : 1940 84 From: Edda Langston MD PCP: Dr. Jacquie Coleman MD Status:ADM KARLA Location: [place] [address] HPI - General General Date of Admission: 12/30/24 Date of Service: 12/30/24 Chief Complaint: Headache, irregular heart rate, palpitations. HPI Narrative The patient is an 84-year-old female with past medical history obesity, CKD stage III per GFR trending unclear subtype, GERD, hypertension, hyperlipidemia who presents to the [facility] ED on 12/30/2024 with onset on the [...] of pulmonary embolism, diffuse groundglass opacities possibly advertising representative of edema versus infection, enlarged mediastinal lymph nodes, TSH 4.410 with free T4 normal however 0.85, BNP 379.8, magnesium 2.2. In the ED patient ministered 1 L normal saline and diltiazem 10 mg IV bolus x 1. In the ED patient following diltiazem bolus converted with confirmation EKG demonstrating sinus rhythm with no acute evidence of ischemia. [facility] Medical History Obesity GERD (gastroesophageal reflux [...] No his (more content not included)... Normal [facility] International normalized rat io (INR) calculationOrdered By: Dwight Patricia on 12-30-2024 INR Coag (Bld) [Relative time] 0.9 {INR} [facility] L501.4020on 12-30-2024 TROPONIN-I HS 29 pg/mL Normal 3.0-54.0 [facility] Comment on above: Result Comment: Plea se Note: New Test Units and Gender Specific Reference Ranges. For more information see Policy Stat Procedure [place] High Sensitivity Troponin (TNIH) and attachments. Performed By: #### L 501.4021, L500.2500, L100.0100 #### [facility] [address] [place], [address] L501.5425on 12-30-2024 TROPONIN-I HS 17 pg/mL Normal 3.0-54.0 [facility] Comment on above: Order Comment: 1 Y Result Comment: Plea se Note: New Test Units and Gender Specific Reference Ranges. For more information see Policy Stat Procedure [place] High Sensitivity Troponin (TNIH) and attachments. Performed By: #### L 501.5425, L100.0100, L500.2500 #### [facility] [address] [place], [address] Magnesiumon 12-30-2024 Magnesium [Mass/Vol] 2.2 mg/dL Normal 1.6-2.6 [facility] Comment on above: Result Comment: Mode rate Hemolysis, Result may be falsely increased. Performed By: #### L 501.4021, L500.2500, L100.0100 #### [facility] [address] [place], [address] Magnesium measurementOrdered By: Dwight Patricia on 12-30-2024 Magnesium [Mass/Vol] 2.2 mg/dL 1.6-2.6 [facility] Comment on above: Moderate Hemolysis, Result may be falsely increased. Partial Thromboplast Timeon 12-30-2024 aPTT Coag (Bld) [Time] 25.3 s Normal 24.1-36.2 [facility] Comment on above: Performed By: #### L 501.4021, L500.2500, L100.0100 #### [facility] [address] [place], [address] Prothrombin Time w/INRon INR Coag (PPP) [Relative time] 0.9 {INR} Normal [facility] Comment on above: Performed By: #### L 501.4021, L500.2500, L100.0100 #### [facility] [address] [place], [address] PT Coag (PPP) [Time] 12.8 s Normal 11.7-14.9 [facility] Comment on above: Performed By: #### L 501.4021, L500.2500, L100.0100 #### [facility] [address] [place], [address] Prothrombin timeOrdered By: Dwight Patricia on 12-30-2024 PT Coag (PPP) [Time] 12.8 s 11.7-14.9 [facility] Respiratory pathogens DNA an d RNA panel LISA+probe (Resp)Ordered By: Edda Langston on 12-30-2024 Respiratory Panel (PCR) [facility] [id number] By: Edda Langston on 12-30-2024 SARS-CoV-2 (COVID-19) RNA LISA+probe Ql (Unsp spec) [facility] T4 Free Directon 12-30-2024 T4 FREE DIRECT 0.85 ng/dL Normal 0.76-1.46 [facility] Comment on above: Performed By: #### L 501.4021, L500.2500, L100.0100 #### [facility] [address] [place], [address] TSH QnOrdered By: Dwighttheodora mckennaTamica on 12-30-2024 Thyroid Stimulating Hormone (TSH) 4.410 uIU/mL High 0.358-3.740 [facility] Thyroid Stim Hormone (TSH)on 12-30-2024 TSH 4.410 uIU/mL High 0.358-3.740 [facility] Comment on above: Performed By: #### L 501.4021, L500.2500, L100.0100 #### [facility] [address] [place], [address] aPTT Coag (PPP) [Time]Ordere d By: Dwight Patricia on 12-30-2024 aPTT Coag (Bld) [Time] 25.3 s 24.1-36.2 [facility] CBC W/Diff, Automatedon 05-25 Absolute Lymph 1.83 X10 3/uL Normal 0.83-4.51 [facility] Comment on above: Performed By: #### L 501.4021, L500.2500, L100.0100 #### [facility] [address] [place], [address] Absolute Neut 3.3 X10 3/uL Normal 2.0-7.7 [facility] Comment on above: Performed By: #### L 501.4021, L500.2500, L100.0100 #### [facility] [address] [place], [address] Basophils/100 WBC (Bld) 0.7 % Normal 0-1 [facility] Comment on above: Performed By: #### L 501.4021, L500.2500, L100.0100 #### [facility] [address] [place], [address] Eosinophils/100 WBC (Bld) 2.7 % Normal 0-5 [facility] Comment on above: Performed By: #### L 501.4021, L500.2500, L100.0100 #### [facility] [address] [place], [address] Erythrocyte distribution width (RBC) [Ratio] 13.1 % Normal 11.6-14.6 [facility] Comment on above: Performed By: #### L 501.4021, L500.2500, L100.0100 #### [facility] [address] [place], [address] Hematocrit (Bld) [Volume fraction] 44.4 % Normal 37-47 [facility] Comment on above: Performed By: #### L 501.4021, L500.2500, L100.0100 #### [facility] [address] [place], [address] Hemoglobin (Bld) [Mass/Vol] 14.6 g/dL Normal 12.0-15.0 [facility] Comment on above: Performed By: #### L 501.4021, L500.2500, L100.0100 #### [facility] [address] [place], [address] IG% 0.300 Normal 0.0-0.9 [facility] Comment on above: Result Comment: IG% - Immature Granulocytes (promyelocytes, myelocytes and metamyelocytes) > 1% indicates that a LEFT SHIFT is Present. Performed By: #### L 501.4021, L500.2500, L100.0100 #### [facility] [address] [place], [address] Lymphocytes/100 WBC (Bld) 31.2 % Normal 19-41 [facility] Comment on above: Performed By: #### L 501.4021, L500.2500, L100.0100 #### [facility] [address] [place], [address] MCH (RBC) [Entitic mass] 30.1 pg Normal 27.0-32.0 [facility] Comment on above: Performed By: #### L 501.4021, L500.2500, L100.0100 #### [facility] [address] [place], [address] MCHC (RBC) [Mass/Vol] 32.9 g/dL Normal 32-36 [facility] Comment on above: Performed By: #### L 501.4021, L500.2500, L100.0100 #### [facility] [address] [place], [address] MCV (RBC) [Entitic vol] 91.5 fL Normal 81-99 [facility] Comment on above: Performed By: #### L 501.4021, L500.2500, L100.0100 #### [facility] [address] [place], [address] Monocytes/100 WBC (Bld) 9.0 % Normal 0-10 [facility] Comment on above: Performed By: #### L 501.4021, L500.2500, L100.0100 #### [facility] [address] [place], [address] Neutrophils/100 WBC (Bld) 56.1 % Normal 47-70 [facility] Comment on above: Performed By: #### L 501.4021, L500.2500, L100.0100 #### [facility] [address] [place], [address] Nucleated RBC (Bld) [#/Vol] 0 10*3/uL Normal 0-5 [facility] Comment on above: Performed By: #### L 501.4021, L500.2500, L100.0100 #### [facility] [address] [place], [address] Platelet mean volume (Bld) [Entitic vol] 10.2 fL Normal 6.2-12.0 [facility] Comment on above: Performed By: #### L 501.4021, L500.2500, L100.0100 #### [facility] [address] [place], [address] Platelets (Bld) [#/Vol] 258 10*3/uL Normal 150-450 [facility] Comment on above: Performed By: #### L 501.4021, L500.2500, L100.0100 #### [facility] [address] [place], [address] RBC (Bld) [#/Vol] 4.85 10*6/uL Normal 4.2-5.4 [facility] Comment on above: Performed By: #### L 501.4021, L500.2500, L100.0100 #### [facility] [address] [place], [address] RDW SD 44.5 fl High 35.1-43.9 [facility] Comment on above: Performed By: #### L 501.4021, L500.2500, L100.0100 #### [facility] [address] [place], [address] WBC (Bld) [#/Vol] 5.9 10*3/uL Normal 4.4-11.0 [facility] Comment on above: Performed By: #### L 501.4021, L500.2500, L100.0100 #### [facility] [address] [place], [address] Comprehensive Metabolic Prof [facility] 06-15-2024 Albumin [Mass/Vol] 3.7 g/dL Normal 3.2-5.0 [facility] Comment on above: Performed By: #### L 501.4021, L500.2500, L100.0100 #### [facility] [address] [place], [address] Albumin/Globulin [Mass ratio] 0.9 {ratio} Normal 0.9-2.4 [facility] Comment on above: Performed By: #### L 501.4021, L500.2500, L100.0100 #### [facility] [address] [place], [address] ALK P 93 U/L Normal 45-117 [facility] Comment on above: Performed By: #### L 501.4021, L500.2500, L100.0100 #### [facility] [address] [place], [address] ALT [Catalytic activity/Vol] 28 U/L Normal 13-56 [facility] Comment on above: Performed By: #### L 501.4021, L500.2500, L100.0100 #### [facility] [address] [place], [address] AST [Catalytic activity/Vol] 25 U/L Normal 15-37 [facility] Comment on above: Performed By: #### L 501.4021, L500.2500, L100.0100 #### [facility] [address] [place], [address] Bilirubin [Mass/Vol] 0.60 mg/dL Normal 0.20-1.00 [facility] Comment on above: Result Comment: For patients on eltrombopag therapy, use of Dimension [place] TBIL is not recommended. Performed By: #### L 501.4021, L500.2500, L100.0100 #### [facility] [address] [place], [address] BUN/CRE 13.6 RATIO Normal 10-20 [facility] Comment on above: Performed By: #### L 501.4021, L500.2500, L100.0100 #### [facility] [address] [place], [address] CA,Total 9.5 mg/dL Normal 8.5-10.1 [facility] Comment on above: Performed By: #### L 501.4021, L500.2500, L100.0100 #### [facility] [address] [place], [address] Chloride [Moles/Vol] 106 mmol/L Normal 98-107 [facility] Comment on above: Performed By: #### L 501.4021, L500.2500, L100.0100 #### [facility] [address] [place], [address] CO2 [Moles/Vol] 29.0 mmol/L Normal 21.0-32.0 [facility] Comment on above: Performed By: #### L 501.4021, L500.2500, L100.0100 #### [facility] [address] [place], [address] Creatinine [Mass/Vol] 0.81 mg/dL Normal 0.55-1.02 [facility] Comment on above: Result Comment: The validity of the calculated GFR GFRAA in patients over 70 years has not been determined. Clinical correlation is essential. Performed By: #### L 501.4021, L500.2500, L100.0100 #### [facility] [address] [place], [address] EST GFR - AA 87 mL/min Normal >60 [facility] Comment on above: Result Comment: Afri can [place] GFR Calc Performed By: #### L 501.4021, L500.2500, L100.0100 #### [facility] [address] [place], [address] GAP 5 Normal 5-15 [facility] Comment on above: Performed By: #### L 501.4021, L500.2500, L100.0100 #### [facility] [address] [place], [address] GFR/1.73 sq M.predicted among non-blacks MDRD (S/P/Bld) [Vol rate/Area] 72 mL/min/{1.73_m2} Normal >60 [facility] Comment on above: Result Comment: Non- GFR Calc Performed By: #### L 501.4021, L500.2500, L100.0100 #### [facility] [address] [place], [address] Globulin (S) [Mass/Vol] 4.2 g/dL Normal 2.2-4.2 [facility] Comment on above: Performed By: #### L 501.4021, L500.2500, L100.0100 #### [facility] [address] [place], [address] Glucose [Mass/Vol] 95 mg/dL Normal 74-106 [facility] Comment on above: Performed By: #### L 501.4021, L500.2500, L100.0100 #### [facility] [address] [place], [address] Potassium [Moles/Vol] 3.9 mmol/L Normal 3.5-5.1 [facility] Comment on above: Performed By: #### L 501.4021, L500.2500, L100.0100 #### [facility] [address] [place], [address] Sodium [Moles/Vol] 140 mmol/L Normal 136-145 [facility] Comment on above: Performed By: #### L 501.4021, L500.2500, L100.0100 #### [facility] [address] [place], [address] T PROT 7.9 g/dL Normal 6.4-8.2 [facility] Comment on above: Performed By: #### L 501.4021, L500.2500, L100.0100 #### [facility] [address] [place], [address] Urea nitrogen [Mass/Vol] 11 mg/dL Normal 7-18 [facility] Comment on above: Performed By: #### L 501.4021, L500.2500, L100.0100 #### [facility] [address] [place], [address] Lipid Profileon 06-15-2024 Cholesterol [Mass/Vol] 183 mg/dL Normal 200 [facility] Comment on above: Result Comment: <200 mg/dL Desirable 200-240 mg/dL Borderline >240 mg/dL High Risk Performed By: #### L 501.4021, L500.2500, L100.0100 #### [facility] [address] [place], [address] Cholesterol in HDL [Mass/Vol] 56 mg/dL Normal [facility] Comment on above: Result Comment: The drugs N-Acetylcysteine and Metamizole may falsely depress this assay. Reference Range HDL <40 mg/dL Low HDL Cholesterol HDL >or= 60 mg/dL High HDL Cholesterol Performed By: #### L 501.4021, L500.2500, L100.0100 #### [facility] [address] [place], [address] Cholesterol in LDL [Mass/Vol] 93 mg/dL Normal 0-130 [facility] Comment on above: Performed By: #### L 501.4021, L500.2500, L100.0100 #### [facility] [address] [place], [address] Cholesterol in VLDL [Mass/Vol] 34 mg/dL Normal 5-40 [facility] Comment on above: Performed By: #### L 501.4021, L500.2500, L100.0100 #### [facility] [address] [place], [address] Triglyceride [Mass/Vol] 169 mg/dL Normal [facility] Comment on above: Result Comment: The drugs N-Acetylcysteine and Metamizole may falsely depress this assay. Serum Triglycerides Reference Interval Normal <150 mg/dL Borderline high 150 - 199 mg/dL High 200 - 499 mg/dL Very High > or = 500 mg/dL Performed By: #### L 501.4021, L500.2500, L100.0100 #### [facility] [address] [place], [address] Vitamin D,25 Hydroxyon 06-15 Vitamin D 25-OH 35.1 ng/mL Normal [facility] Comment on above: Result Comment: Cheryl min D 25(OH) Status Range Deficiency <20 ng/mL (50nmol/L) Insufficiency 20 - 30 ng/mL (50 - 75 nmol/L) Sufficiency 30 - 100 ng/mL (75 - 250 nmol/L) Toxicity >100 ng/mL (>250 nmol/L) Performed By: #### L 501.4021, L500.2500, L100.0100 #### [facility] [address] [place], [address] Absolute lymphocyte countOrd ered By: Jacquie Coleman on 11-27-2023 Lymphocytes Auto (Unsp spec) [#/Vol] 1.91 10*3/uL 0.83-4.51 [facility] Basophil percentageOrdered B y: Jacquie Coleman on 11-27-2023 Basophils/100 WBC (Bld) 0.7 % 0-1 [facility] Chloride [Moles/Vol] 106 mmol/L 98-107 [facility] Eosinophils/100 WBC (Bld) 3.3 % 0-5 [facility] Glucose [Mass/Vol] 107 mg/dL 74-106 [facility] Comment on above: Fasting Glucose resu lt from 100 to 125 mg/dL suggests IMPAIRED HOMEOSTASIS per A.D.A. criteria. Neutrophils (Bld) [#/Vol] 3.4 10*3/uL 2.0-7.7 [facility] Neutrophils/100 WBC (Bld) 56.0 % 47-70 [facility] Potassium [Moles/Vol] 3.3 mmol/L 3.5-5.1 [facility] Sodium [Moles/Vol] 141 mmol/L 136-145 [facility] WBC (Bld) [#/Vol] 6.1 10*3/uL 4.4-11.0 [facility] Blood erythrocytes count (nu mber/volume)Ordered By: Jacquie Coleman on 11-27-2023 RBC (Bld) [#/Vol] 3.27 10*6/uL 4.2-5.4 [facility] Blood hemoglobin measurement (mass/volume)Ordered By: Jacquie Coleman on 11-27-2023 Hemoglobin (Bld) [Mass/Vol] 10.0 g/dL 12.0-15.0 [facility] Blood lymphocytes/100 leukoc ytesOrdered By: Jacquie Coleman on 11-27-2023 Lymphocytes/100 WBC (Bld) 31.2 % 19-41 [facility] Blood monocytes/100 leukocyt esOrdered By: Jacquie Coleman on 11-27-2023 Monocytes/100 WBC (Bld) 8.3 % 0-10 [facility] Blood platelet mean volumeOr dered By: Jacquie Coleman on 11-27-2023 Platelet mean volume (Bld) [Entitic vol] 10.3 fL 6.2-12.0 [facility] Determination of erythrocyte mean corpuscular volume (MCV)Ordered By: Jacquie Coleman on 11-27-2023 MCV (RBC) [Entitic vol] 95.1 fL 81-99 [facility] Hematocrit Auto (Bld) [Volum e fraction]Ordered By: Jacquie Coleman on 11-27-2023 Hematocrit (Bld) [Volume fraction] 31.1 % 37-47 [facility] Hemoglobin in reticulocytes (mass per reticulocyte)Ordered By: Jacquie Coleman on 11-27-2023 Hemoglobin (Reticulocytes) [Entitic mass] 28.1 pg 30-35 [facility] Laboratory - Chemistry and C hemistry - challengeOrdered By: Jacquie Coleman on 11-27-2023 CO2 [Moles/Vol] 29.0 mmol/L 21.0-32.0 [facility] Urea nitrogen/Creatinine [Mass ratio] 11.9 mg/mg 10-20 [facility] - Hematology and Cell countsOrdered By: Jacquie Coleman on 11-27-2023 Erythrocyte distribution width (RBC) [Entitic vol] 50.4 fL 35.1-43.9 [facility] Erythrocyte distribution width (RBC) [Ratio] 15.0 % 11.6-14.6 [facility] Immature granulocytes/100 WBC (Bld) 0.500 % 0.0-0.9 [facility] Comment on above: IG% - Immature Granu locytes (promyelocytes, myelocytes and metamyelocytes) > 1% indicates that a LEFT SHIFT is Present. MCH (RBC) [Entitic mass] 30.6 pg 27.0-32.0 [facility] Nucleated RBC/100 WBC (Bld) [Ratio] 0 % 0-5 [facility] MCHC Auto (RBC) [Mass/Vol]Or dered By: Jacquie Coleman on 11-27-2023 MCHC (RBC) [Mass/Vol] 32.2 g/dL 32-36 [facility] No Panel InformationOrdered By: Jacquie Coleman on 11-27-2023 Estimated GFR (MDRD) Amer 83 mL/min >60 [facility] Comment on above: GFR Calc Estimated GFR (MDRD) Non-Af Amer 69 mL/min >60 [facility] Comment on above: Non- GFR Calc Immature Reticulocyte Fraction 25.50 % 3.00-15.90 [facility] Reticulocyte Count 6.08 % 0.5-1.5 [facility] Platelets bldOrdered By: Lamin Coleman on 11-27-2023 Platelets (Bld) [#/Vol] 272 10*3/uL 150-450 [facility] Serum or plasma calcium balaji urement (mass/volume)Ordered By: Jacquie Coleman on 11-27-2023 Calcium [Mass/Vol] 8.6 mg/dL 8.5-10.1 [facility] Serum or plasma creatinine m easurement (mass/volume)Ordered By: Jacquie Coleman on 11-27-2023 Creatinine [Mass/Vol] 0.84 mg/dL 0.55-1.02 [facility] Comment on above: The validity of the calculated GFR & GFRAA in patients over 70 years has not been determined. Clinical correlation is essential. Serum or plasma urea nitroge n measurement (mass/volume)Ordered By: Jacquie Coleman on 11-27-2023 Urea nitrogen [Mass/Vol] 10 mg/dL 7-18 [facility] Thin prep Papanicolaou smear with manual screeningOrdered By: Jacquie Coleman on 11-27-2023 Thin prep Papanicolaou smear with manual screening 6 5-15 [facility] Absolute lymphocyte countOrd ered By: Analy Aguirre on 11-19-2023 Lymphocytes Auto (Unsp spec) [#/Vol] 3.08 10*3/uL 0.83-4.51 [facility] Basophil percentageOrdered B y: Analy Aguirre on 11-19-2023 Basophils/100 WBC (Bld) 0.6 % 0-1 [facility] Bilirubin [Mass/Vol] 0.40 mg/dL 0.20-1.00 [facility] Comment on above: For patients on eltr ombopag therapy, use of Dimension [place] TBIL is not recommended. Chloride [Moles/Vol] 104 mmol/L 98-107 [facility] Eosinophils/100 WBC (Bld) 0.9 % 0-5 [facility] Glucose [Mass/Vol] 121 mg/dL 74-106 [facility] Comment on above: Fasting Glucose resu lt from 100 to 125 mg/dL suggests IMPAIRED HOMEOSTASIS per A.D.A. criteria. Neutrophils (Bld) [#/Vol] 5.5 10*3/uL 2.0-7.7 [facility] Neutrophils/100 WBC (Bld) 56.9 % 47-70 [facility] Potassium [Moles/Vol] 4.1 mmol/L 3.5-5.1 [facility] Protein [Mass/Vol] 7.4 g/dL 6.4-8.2 [facility] Sodium [Moles/Vol] 135 mmol/L 136-145 [facility] WBC (Bld) [#/Vol] 9.6 10*3/uL 4.4-11.0 [facility] Blood erythrocytes count (nu mber/volume)Ordered By: Analy Aguirre on 11-19-2023 RBC (Bld) [#/Vol] 3.86 10*6/uL 4.2-5.4 [facility] Blood hemoglobin measurement (mass/volume)Ordered By: Analy Aguirre on 11-19-2023 Hemoglobin (Bld) [Mass/Vol] 11.5 g/dL 12.0-15.0 [facility] Blood lymphocytes/100 leukoc ytesOrdered By: Analy Aguirre on 11-19-2023 Lymphocytes/100 WBC (Bld) 32.0 % 19-41 [facility] Blood monocytes/100 leukocyt esOrdered By: Analy Aguirre on 11-19-2023 Monocytes/100 WBC (Bld) 9.3 % 0-10 [facility] Blood platelet mean volumeOr dered By: Analy Aguirre on 11-19-2023 Platelet mean volume (Bld) [Entitic vol] 10.1 fL 6.2-12.0 [facility] Determination of erythrocyte mean corpuscular volume (MCV)Ordered By: Analy Aguirre on 11-19-2023 MCV (RBC) [Entitic vol] 89.4 fL 81-99 [facility] Hematocrit Auto (Bld) [Volum e fraction]Ordered By: Analy Aguirre on 11-19-2023 Hematocrit (Bld) [Volume fraction] 34.5 % 37-47 [facility] Laboratory - Chemistry and C hemistry - challengeOrdered By: Analy Aguirre on 11-19-2023 ALP [Catalytic activity/Vol] 77 U/L 45-117 [facility] ALT [Catalytic activity/Vol] 27 U/L 13-56 [facility] CO2 [Moles/Vol] 23.0 mmol/L 21.0-32.0 [facility] Globulin (S) [Mass/Vol] 3.8 g/dL 2.2-4.2 [facility] Urea nitrogen/Creatinine [Mass ratio] 31.6 mg/mg 10-20 [facility] Laboratory - Hematology and Cell countsOrdered By: Analy Aguirre on 11-19-2023 Erythrocyte distribution width (RBC) [Entitic vol] 45.9 fL 35.1-43.9 [facility] Erythrocyte distribution width (RBC) [Ratio] 14.2 % 11.6-14.6 [facility] Immature granulocytes/100 WBC (Bld) 0.300 % 0.0-0.9 [facility] Comment on above: IG% - Immature Granu locytes (promyelocytes, myelocytes and metamyelocytes) > 1% indicates that a LEFT SHIFT is Present. MCH (RBC) [Entitic mass] 29.8 pg 27.0-32.0 [facility] Nucleated RBC/100 WBC (Bld) [Ratio] 0 % 0-5 [facility] Lower GI hemoglobin IA Ql (S tl)Ordered By: Analy Aguirre on 11-19-2023 Stool Occult Blood (CRISTIAN) Positive [facility] MCHC Auto (RBC) [Mass/Vol]Or dered By: Analy Aguirre on 11-19-2023 MCHC (RBC) [Mass/Vol] 33.3 g/dL 32-36 [facility] No Panel InformationOrdered By: Analy Aguirre on 11-19-2023 Estimated Creatinine Clearance Calc 37.88 ml/min [facility] Estimated GFR (MDRD) Amer 78 mL/min >60 [facility] Comment on above: GFR Calc Estimated GFR (MDRD) Non-Af Amer 65 mL/min >60 [facility] Comment on above: Non- GFR Calc Troponin I High Sensitivity 21 pg/mL 3.0-54.0 [facility] Comment on above: Please Note: [place] t Units and Gender Specific Reference Ranges. For more information see Policy Stat Procedure [place] High Sensitivity Troponin (TNIH) and attachments. Platelets bldOrdered By: Antonina Aguirre on 11-19-2023 Platelets (Bld) [#/Vol] 240 10*3/uL 150-450 [facility] Serum or plasma albumin balaji urement (mass/volume)Ordered By: Analy Aguirre on 11-19-2023 Albumin [Mass/Vol] 3.6 g/dL 3.2-5.0 [facility] Serum or plasma albumin/glob ulin mass ratioOrdered By: Analy Aguirre on 11-19-2023 Albumin/Globulin [Mass ratio] 0.9 {ratio} 0.9-2.4 [facility] Serum or plasma calcium balaji urement (mass/volume)Ordered By: Analy Aguirre on 11-19-2023 Calcium [Mass/Vol] 9.3 mg/dL 8.5-10.1 [facility] Serum or plasma creatinine m easurement (mass/volume)Ordered By: Analy Aguirre on 11-19-2023 Creatinine [Mass/Vol] 0.89 mg/dL 0.55-1.02 [facility] Comment on above: The validity of the calculated GFR & GFRAA in patients over 70 years has not been determined. Clinical correlation is essential. Serum or plasma urea nitroge n measurement (mass/volume)Ordered By: Analy Aguirre on 11-19-2023 Urea nitrogen [Mass/Vol] 28 mg/dL 7-18 [facility] Thin prep Papanicolaou smear with manual screeningOrdered By: Analy Aguirre on 11-19-2023 Thin prep Papanicolaou smear with manual screening 20 U/L 15-37 [facility] Thin prep Papanicolaou smear with manual screening 8 5-15 [facility] Absolute lymphocyte countOrd ered By: Jacquie Coleman on 09-22-2023 Lymphocytes Auto (Unsp spec) [#/Vol] 2.17 10*3/uL 0.83-4.51 [facility] Basophil percentageOrdered B y: Jacquie Coleman on 09-22-2023 Basophils/100 WBC (Bld) 1.0 % 0-1 [facility] Bilirubin [Mass/Vol] 0.70 mg/dL 0.20-1.00 [facility] Comment on above: For patients on eltr ombopag therapy, use of Dimension [place] TBIL is not recommended. Chloride [Moles/Vol] 105 mmol/L 98-107 [facility] Cholesterol [Mass/Vol] 179 mg/dL <200 [facility] Comment on above: <200 mg/dL Desirable 200-240 mg/dL Borderline >240 mg/dL High Risk Eosinophils/100 WBC (Bld) 3.6 % 0-5 [facility] Glucose [Mass/Vol] 95 mg/dL 74-106 [facility] Neutrophils (Bld) [#/Vol] 2.9 10*3/uL 2.0-7.7 [facility] Neutrophils/100 WBC (Bld) 49.2 % 47-70 [facility] Potassium [Moles/Vol] 3.8 mmol/L 3.5-5.1 [facility] Protein [Mass/Vol] 7.4 g/dL 6.4-8.2 [facility] Sodium [Moles/Vol] 139 mmol/L 136-145 [facility] Triglyceride [Mass/Vol] 171 mg/dL <199 [facility] Comment on above: The drugs N-Acetylcy steine and Metamizole may falsely depress this assay.Serum Triglycerides Reference Interval Normal <150 mg/dL Borderline high 150 - 199 mg/dL High 200 - 499 mg/dL Very High > or = 500 mg/dL WBC (Bld) [#/Vol] 5.8 10*3/uL 4.4-11.0 [facility] Blood erythrocytes count (nu mber/volume)Ordered By: Jacquie Coleman on 09-22-2023 RBC (Bld) [#/Vol] 4.81 10*6/uL 4.2-5.4 [facility] Blood hemoglobin measurement (mass/volume)Ordered By: Jacquie Coleman on 09-22-2023 Hemoglobin (Bld) [Mass/Vol] 14.3 g/dL 12.0-15.0 [facility] Blood lymphocytes/100 leukoc ytesOrdered By: Jacquie Coleman on 09-22-2023 Lymphocytes/100 WBC (Bld) 37.2 % 19-41 [facility] Blood monocytes/100 leukocyt esOrdered By: Jacquie Coleman on 09-22-2023 Monocytes/100 WBC (Bld) 8.7 % 0-10 [facility] Blood platelet mean volumeOr dered By: Jacquie Coleman on 09-22-2023 Platelet mean volume (Bld) [Entitic vol] 10.7 fL 6.2-12.0 [facility] Determination of erythrocyte mean corpuscular volume (MCV)Ordered By: Jacquie Coleman on 09-22-2023 MCV (RBC) [Entitic vol] 91.3 fL 81-99 [facility] Hematocrit Auto (Bld) [Volum e fraction]Ordered By: Jacquie Jared on 09-22-2023 Hematocrit (Bld) [Volume fraction] 43.9 % 37-47 [facility] Laboratory - Chemistry and C hemistry - challengeOrdered By: [facility]23 ALP [Catalytic activity/Vol] 85 U/L 45-117 [facility] ALT [Catalytic activity/Vol] 27 U/L 13-56 [facility] CO2 [Moles/Vol] 28.0 mmol/L 21.0-32.0 [facility] Globulin (S) [Mass/Vol] 3.8 g/dL 2.2-4.2 [facility] Urea nitrogen/Creatinine [Mass ratio] 16.8 mg/mg 10-20 [facility] Laboratory - Hematology and Cell countsOrdered By: Elba Jared on 09-22-2023 Erythrocyte distribution width (RBC) [Entitic vol] 46.8 fL 35.1-43.9 [facility] Erythrocyte distribution width (RBC) [Ratio] 13.8 % 11.6-14.6 [facility] Immature granulocytes/100 WBC (Bld) 0.300 % 0.0-0.9 [facility] Comment on above: IG% - Immature Granu locytes (promyelocytes, myelocytes and metamyelocytes) > 1% indicates that a LEFT SHIFT is Present. MCH (RBC) [Entitic mass] 29.7 pg 27.0-32.0 [facility] Nucleated RBC/100 WBC (Bld) [Ratio] 0 % 0-5 [facility] MCHC Auto (RBC) [Mass/Vol]Or dered By: Jacquie Coleman on 09-22-2023 MCHC (RBC) [Mass/Vol] 32.6 g/dL 32-36 [facility] No Panel InformationOrdered By: Jacquie Coleman on 09-22-2023 Estimated GFR (MDRD) Amer 92 mL/min >60 [facility] Comment on above: GFR Calc Estimated GFR (MDRD) Non-Af Amer 76 mL/min >60 [facility] Comment on above: Non- GFR Calc Vitamin D 25-Hydroxy 31.8 ng/mL [facility] Comment on above: Vitamin D 25(OH) Sta tus Range Deficiency <20 ng/mL (50nmol/L) Insufficiency 20 - 30 ng/mL (50 - 75 nmol/L) Sufficiency 30 - 100 ng/mL (75 - 250 nmol/L) Toxicity >100 ng/mL (>250 nmol/L) Platelets bldOrdered By: Lamin Coleman on 09-22-2023 Platelets (Bld) [#/Vol] 235 10*3/uL 150-450 [facility] Serum or plasma albumin balaji urement (mass/volume)Ordered By: Jacquie Coleman on 09-22-2023 Albumin [Mass/Vol] 3.6 g/dL 3.2-5.0 [facility] Serum or plasma albumin/glob ulin mass ratioOrdered By: Jacquie Coleman on 09-22-2023 Albumin/Globulin [Mass ratio] 0.9 {ratio} 0.9-2.4 [facility] Serum or plasma calcium balaji urement (mass/volume)Ordered By: Jacquie Coleman on 09-22-2023 Calcium [Mass/Vol] 9.1 mg/dL 8.5-10.1 [facility] Serum or plasma cholesterol in HDL measurement (mass/volume)Ordered By: Jacquie Coleman on 09-22-2023 Cholesterol in HDL [Mass/Vol] 54 mg/dL >40 [facility] Comment on above: The drugs N-Acetylcy steine and Metamizole may falsely depress this assay. Reference Range HDL <40 mg/dL Low HDL Cholesterol HDL >or= 60 mg/dL High HDL Cholesterol Serum or plasma cholesterol in VLDL measurement (mass/volume)Ordered By: Jacquie Coleman on 09-22-2023 Cholesterol in VLDL [Mass/Vol] 34 mg/dL 5-40 [facility] Serum or plasma creatinine m easurement (mass/volume)Ordered By: Jacquie Coleman on 09-22-2023 Creatinine [Mass/Vol] 0.77 mg/dL 0.55-1.02 [facility] Comment on above: The validity of the calculated GFR & GFRAA in patients over 70 years has not been determined. Clinical correlation is essential. Serum or plasma low density lipoprotein (LDL) cholesterol measurement (mass/volume)Ordered By: Jacquie Coleman on 09-22-2023 Cholesterol in LDL [Mass/Vol] 91 mg/dL 0-130 [facility] Serum or plasma urea nitroge n measurement (mass/volume)Ordered By: Jacquie Coleman on 09-22-2023 Urea nitrogen [Mass/Vol] 13 mg/dL 7-18 [facility] Thin prep Papanicolaou smear with manual screeningOrdered By: Jacquie Coleman on 09-22-2023 Thin prep Papanicolaou smear with manual screening 20 U/L 15-37 [facility] Thin prep Papanicolaou smear with manual screening 6 5-15 [facility] Absolute lymphocyte countOrd ered By: Dr. Coleman on 03-24-2023 Lymphocytes Auto (Unsp spec) [#/Vol] 2.21 10*3/uL 0.83-4.51 [facility] Basophil percentageOrdered B y: Dr. Coleman on 03-24-2023 Basophils/100 WBC (Bld) 0.6 % 0-1 [facility] Bilirubin [Mass/Vol] 0.60 mg/dL 0.20-1.00 [facility] Comment on above: For patients on eltr ombopag therapy, use of Dimension [place] TBIL is not recommended. Chloride [Moles/Vol] 105 mmol/L 98-107 [facility] Cholesterol [Mass/Vol] 166 mg/dL <200 [facility] Comment on above: <200 mg/dL Desirable 200-240 mg/dL Borderline >240 mg/dL High Risk Eosinophils/100 WBC (Bld) 3.7 % 0-5 [facility] Glucose [Mass/Vol] 93 mg/dL 74-106 [facility] Neutrophils (Bld) [#/Vol] 3.5 10*3/uL 2.0-7.7 [facility] Neutrophils/100 WBC (Bld) 52.8 % 47-70 [facility] Potassium [Moles/Vol] 3.9 mmol/L 3.5-5.1 [facility] Protein [Mass/Vol] 7.8 g/dL 6.4-8.2 [facility] Sodium [Moles/Vol] 140 mmol/L 136-145 [facility] Triglyceride [Mass/Vol] 182 mg/dL <199 [facility] Comment on above: The drugs N-Acetylcy steine and Metamizole may falsely depress this assay.Serum Triglycerides Reference Interval Normal <150 mg/dL Borderline high 150 - 199 mg/dL High 200 - 499 mg/dL Very High > or = 500 mg/dL WBC (Bld) [#/Vol] 6.6 10*3/uL 4.4-11.0 [facility] Blood erythrocytes count (nu mber/volume)Ordered By: Dr. Coleman on 03-24-2023 RBC (Bld) [#/Vol] 4.68 10*6/uL 4.2-5.4 [facility] Blood hemoglobin measurement (mass/volume)Ordered By: Dr. Coleman on 03-24-2023 Hemoglobin (Bld) [Mass/Vol] 14.0 g/dL 12.0-15.0 [facility] Blood lymphocytes/100 leukoc ytesOrdered By: Dr. Coleman on 03-24-2023 Lymphocytes/100 WBC (Bld) 33.6 % 19-41 [facility] Blood monocytes/100 leukocyt esOrdered By: Dr. Coleman on 03-24-2023 Monocytes/100 WBC (Bld) 8.8 % 0-10 [facility] Blood platelet mean volumeOr dered By: Dr. Coleman on 03-24-2023 Platelet mean volume (Bld) [Entitic vol] 10.5 fL 6.2-12.0 [facility] Determination of erythrocyte mean corpuscular volume (MCV)Ordered By: Dr. Coleman on 03-24-2023 MCV (RBC) [Entitic vol] 92.5 fL 81-99 [facility] Hematocrit Auto (Bld) [Volum e fraction]Ordered By: Dr. Coleman on 03-24-2023 Hematocrit (Bld) [Volume fraction] 43.3 % 37-47 [facility] Laboratory - Chemistry and C hemistry - challengeOrdered By: Dr. Coleman on 03-24-2023 ALP [Catalytic activity/Vol] 84 U/L 45-117 [facility] ALT [Catalytic activity/Vol] 28 U/L 13-56 [facility] CO2 [Moles/Vol] 29.0 mmol/L 21.0-32.0 [facility] Globulin (S) [Mass/Vol] 4.2 g/dL 2.2-4.2 [facility] Urea nitrogen/Creatinine [Mass ratio] 29.6 mg/mg 10-20 [facility] Laboratory - Hematology and Cell countsOrdered By: Dr. Coleman on 03-24-2023 Erythrocyte distribution width (RBC) [Entitic vol] 46.8 fL 35.1-43.9 [facility] Erythrocyte distribution width (RBC) [Ratio] 13.5 % 11.6-14.6 [facility] Immature granulocytes/100 WBC (Bld) 0.500 % 0.0-0.9 [facility] Comment on above: IG% - Immature Granu locytes (promyelocytes, myelocytes and metamyelocytes) > 1% indicates that a LEFT SHIFT is Present. MCH (RBC) [Entitic mass] 29.9 pg 27.0-32.0 [facility] Nucleated RBC/100 WBC (Bld) [Ratio] 0 % 0-5 [facility] MCHC Auto (RBC) [Mass/Vol]Or dered By: Dr. Coleman on 03-24-2023 MCHC (RBC) [Mass/Vol] 32.3 g/dL 32-36 [facility] No Panel InformationOrdered By: Dr. Coleman on 03-24-2023 Estimated GFR (MDRD) Amer 129 mL/min >60 [facility] Comment on above: GFR Calc Estimated GFR (MDRD) Non-Af Amer 107 mL/min >60 [facility] Comment on above: Non- GFR Calc Vitamin D 25-Hydroxy 30.5 ng/mL [facility] Comment on above: Vitamin D 25(OH) Sta tus Range Deficiency <20 ng/mL (50nmol/L) Insufficiency 20 - 30 ng/mL (50 - 75 nmol/L) Sufficiency 30 - 100 ng/mL (75 - 250 nmol/L) Toxicity >100 ng/mL (>250 nmol/L) Platelets bldOrdered By: Dr. Coleman on 03-24-2023 Platelets (Bld) [#/Vol] 245 10*3/uL 150-450 [facility] Serum or plasma albumin balaji urement (mass/volume)Ordered By: Dr. Coleman on 03-24-2023 Albumin [Mass/Vol] 3.6 g/dL 3.2-5.0 [facility] Serum or plasma albumin/glob ulin mass ratioOrdered By: Dr. Coleman on 03-24-2023 Albumin/Globulin [Mass ratio] 0.9 {ratio} 0.9-2.4 [facility] Serum or plasma calcium balaji urement (mass/volume)Ordered By: Dr. Coleman on 03-24-2023 Calcium [Mass/Vol] 9.3 mg/dL 8.5-10.1 [facility] Serum or plasma cholesterol in HDL measurement (mass/volume)Ordered By: Dr. Coleman on 03-24-2023 Cholesterol in HDL [Mass/Vol] 49 mg/dL >40 [facility] Comment on above: The drugs N-Acetylcy steine and Metamizole may falsely depress this assay. Reference Range HDL <40 mg/dL Low HDL Cholesterol HDL >or= 60 mg/dL High HDL Cholesterol Serum or plasma cholesterol in VLDL measurement (mass/volume)Ordered By: Dr. Coleman on 03-24-2023 Cholesterol in VLDL [Mass/Vol] 36 mg/dL 5-40 [facility] Serum or plasma creatinine m easurement (mass/volume)Ordered By: Dr. Coleman on 03-24-2023 Creatinine [Mass/Vol] 0.57 mg/dL 0.55-1.02 [facility] Comment on above: The validity of the calculated GFR & GFRAA in patients over 70 years has not been determined. Clinical correlation is essential. Serum or plasma low density lipoprotein (LDL) cholesterol measurement (mass/volume)Ordered By: Dr. Coleman on 03-24-2023 Cholesterol in LDL [Mass/Vol] 81 mg/dL 0-130 [facility] Serum or plasma urea nitroge n measurement (mass/volume)Ordered By: Dr. Coleman on 03-24-2023 Urea nitrogen [Mass/Vol] 17 mg/dL 7-18 [facility] Thin prep Papanicolaou smear with manual screeningOrdered By: Dr. Coleman on 03-24-2023 Thin prep Papanicolaou smear with manual screening 23 U/L 15-37 [facility] Thin prep Papanicolaou smear with manual screening 6 5-15 [facility] Absolute lymphocyte counton 09-17-2022 Lymphocytes Auto (Unsp spec) [#/Vol] 2.49 10*3/uL 0.83-4.51 [facility] Work Phone: Basophil percentageon 2021 Basophils/100 WBC (Bld) 1.1 % 0-1 [facility] Work Phone: Bilirubin [Mass/Vol] 0.60 mg/dL 0.20-1.00 [facility] Work Phone: Comment on above: For patients on eltr ombopag therapy, use of Dimension [place] TBIL is not recommended. Chloride [Moles/Vol] 107 mmol/L 98-107 [facility] Work Phone: Cholesterol [Mass/Vol] 174 mg/dL <200 [facility] Work Phone: Comment on above: <200 mg/dL Desirable 200-240 mg/dL Borderline >240 mg/dL High Risk Eosinophils/100 WBC (Bld) 8.1 % 0-5 [facility] Work Phone: Glucose [Mass/Vol] 95 mg/dL 74-106 [facility] Work Phone: Neutrophils (Bld) [#/Vol] 3.6 10*3/uL 2.0-7.7 [facility] Work Phone: Neutrophils/100 WBC (Bld) 47.9 % 47-70 [facility] Work Phone: Potassium [Moles/Vol] 3.7 mmol/L 3.5-5.1 [facility] Work Phone: Protein [Mass/Vol] 7.4 g/dL 6.4-8.2 [facility] Work Phone: Sodium [Moles/Vol] 140 mmol/L 136-145 [facility] Work Phone: Triglyceride [Mass/Vol] 188 mg/dL <199 [facility] Work Phone: Comment on above: The drugs N-Acetylcy steine and Metamizole may falsely depress this assay.Serum Triglycerides Reference Interval Normal <150 mg/dL Borderline high 150 - 199 mg/dL High 200 - 499 mg/dL Very High > or = 500 mg/dL WBC (Bld) [#/Vol] 7.5 10*3/uL 4.4-11.0 [facility] Work Phone: Blood erythrocytes count (nu mber/volume)on 09-17-2022 RBC (Bld) [#/Vol] 4.88 10*6/uL 4.2-5.4 [facility] Work Phone: Blood hemoglobin measurement (mass/volume)on 09-17-2022 Hemoglobin (Bld) [Mass/Vol] 14.9 g/dL 12.0-15.0 [facility] Work Phone: Blood lymphocytes/100 leukoc yteson 09-17-2022 Lymphocytes/100 WBC (Bld) 33.1 % 19-41 [facility] Work Phone: Blood monocytes/100 leukocyt eson 09-17-2022 Monocytes/100 WBC (Bld) 9.4 % 0-10 [facility] Work Phone: Blood platelet mean volumeon 09-17-2022 Platelet mean volume (Bld) [Entitic vol] 11.3 fL 6.2-12.0 [facility] Work Phone: Determination of erythrocyte mean corpuscular volume (MCV)on 09-17-2022 MCV (RBC) [Entitic vol] 92.2 fL 81-99 [facility] Work Phone: Hematocrit Auto (Bld) [Volum e fraction]on 09-17-2022 Hematocrit (Bld) [Volume fraction] 45.0 % 37-47 [facility] Work Phone: Laboratory - Chemistry and C hemistry - challengeon 09-17-2022 ALP [Catalytic activity/Vol] 76 U/L 45-117 [facility] Work Phone: ALT [Catalytic activity/Vol] 27 U/L 13-56 [facility] Work Phone: CO2 [Moles/Vol] 28.0 mmol/L 21.0-32.0 [facility] Work Phone: Globulin (S) [Mass/Vol] 3.8 g/dL 2.2-4.2 [facility] Work Phone: Urea nitrogen/Creatinine [Mass ratio] 18.4 mg/mg 10-20 [facility] Work Phone: Laboratory - Hematology and Cell countson 09-17-2022 Erythrocyte distribution width (RBC) [Entitic vol] 48.5 fL 35.1-43.9 [facility] Work Phone: Erythrocyte distribution width (RBC) [Ratio] 14.1 % 11.6-14.6 [facility] Work Phone: Immature granulocytes/100 WBC (Bld) 0.400 % 0.0-0.9 [facility] Work Phone: Comment on above: IG% - Immature Granu locytes (promyelocytes, myelocytes and metamyelocytes) > 1% indicates that a LEFT SHIFT is Present. MCH (RBC) [Entitic mass] 30.5 pg 27.0-32.0 [facility] Work Phone: Nucleated RBC/100 WBC (Bld) [Ratio] 0 % 0-5 [facility] Work Phone: MCHC Auto (RBC) [Mass/Vol]on 09-17-2022 MCHC (RBC) [Mass/Vol] 33.1 g/dL 32-36 [facility] Work Phone: No Panel Informationon 09-17 Estimated GFR (MDRD) Amer 94 mL/min >60 [facility] Work Phone: Comment on above: GFR Calc Estimated GFR (MDRD) Non-Af Amer 77 mL/min >60 [facility] Work Phone: Comment on above: Non- GFR Calc Vitamin D 25-Hydroxy 25.5 ng/mL [facility] Work Phone: Comment on above: Vitamin D 25(OH) Sta tus Range Deficiency <20 ng/mL (50nmol/L) Insufficiency 20 - 30 ng/mL (50 - 75 nmol/L) Sufficiency 30 - 100 ng/mL (75 - 250 nmol/L) Toxicity >100 ng/mL (>250 nmol/L) Platelets bldon 09-17-2022 Platelets (Bld) [#/Vol] 235 10*3/uL 150-450 [facility] Work Phone: Serum or plasma albumin balaji urement (mass/volume)on 09-17-2022 Albumin [Mass/Vol] 3.6 g/dL 3.2-5.0 [facility] Work Phone: Serum or plasma albumin/glob ulin mass ratioon 09-17-2022 Albumin/Globulin [Mass ratio] 0.9 {ratio} 0.9-2.4 [facility] Work Phone: Serum or plasma calcium balaji urement (mass/volume)on 09-17-2022 Calcium [Mass/Vol] 9.1 mg/dL 8.5-10.1 [facility] Work Phone: Serum or plasma cholesterol in HDL measurement (mass/volume)on 09-17-2022 Cholesterol in HDL [Mass/Vol] 52 mg/dL >40 [facility] Work Phone: Comment on above: The drugs N-Acetylcy steine and Metamizole may falsely depress this assay. Reference Range HDL <40 mg/dL Low HDL Cholesterol HDL >or= 60 mg/dL High HDL Cholesterol Serum or plasma cholesterol in VLDL measurement (mass/volume)on 09-17-2022 Cholesterol in VLDL [Mass/Vol] 38 mg/dL 5-40 [facility] Work Phone: Serum or plasma creatinine m easurement (mass/volume)on 09-17-2022 Creatinine [Mass/Vol] 0.76 mg/dL 0.55-1.02 [facility] Work Phone: Comment on above: The validity of the calculated GFR & GFRAA in patients over 70 years has not been determined. Clinical correlation is essential. Serum or plasma low density lipoprotein (LDL) cholesterol measurement (mass/volume)on 09-17-2022 Cholesterol in LDL [Mass/Vol] 84 mg/dL 0-130 [facility] Work Phone: Serum or plasma urea nitroge n measurement (mass/volume)on 09-17-2022 Urea nitrogen [Mass/Vol] 14 mg/dL 7-18 [facility] Work Phone: Thin prep Papanicolaou smear with manual screeningon 09-17-2022 Thin prep Papanicolaou smear with manual screening 22 U/L 15-37 [facility] Work Phone: Thin prep Papanicolaou smear with manual screening 5 5-15 [facility] Work Phone: Basophil percentageon 2021 Basophil percentage >100 SEEN /hpf 0-5 [facility] Work Phone: Bilirubin Test strip Ql (U)o n 07-29-2022 Bilirubin Ql (U) Negative Negative [facility] Work Phone: Ketones Test strip Ql (U)on 07-29-2022 Ketones Ql (U) 5 mg/dl Negative [facility] Work Phone: Laboratory - Chemistry and C hemistry - challengeon 07-29-2022 Bilirubin Ql (U) Negative [facility] Work Phone: Glucose Ql (U) Negative [facility] Work Phone: Ketones Ql (U) Small (15+) [facility] Work Phone: pH (U) 6.0 [pH] [facility] Work Phone: Specific gravity (U) [Rel density] 1.030 [facility] Work Phone: Urobilinogen (U) [Mass/Vol] Negative [facility] Work Phone: Laboratory - Hematology and Cell countson 07-29-2022 Hemoglobin Ql (U) Hemolyzed [facility] Work Phone: Laboratory - Specimen inform ationon 07-29-2022 Clarity (U) Cloudy [facility] Work Phone: Color (U) KEYANA [facility] Work Phone: Laboratory - Urinalysison Nitrite Ql (U) Negative [facility] Work Phone: Protein Ql (U) Negative [facility] Work Phone: Mucus LM Ql (Urine sed)on Mucus Ql (Urine sed) 0 SEEN /hpf [facility] Work Phone: Nitrite Test strip Ql (U)on 07-29-2022 Nitrite Ql (U) Negative Negative [facility] Work Phone: No Panel Informationon 07-29 Urine Leukocytes Positive [facility] Work Phone: Urine Non-Hemolyzed Blood Large [facility] Work Phone: Protein Test strip Ql (U)on 07-29-2022 Protein Ql (U) 100 mg/dl Negative [facility] Work Phone: Squamous epithelial cells de tection in urine sediment by light microscopyon 07-29-2022 Epithelial cells.squamous LM Ql (Urine sed) 0-5 SEEN /hpf 5-10 [facility] Work Phone: Urine blood detectionon RBC Ql (U) 250 /ul Negative [facility] Work Phone: RBC Ql (U) 50-100 SEEN /hpf 0-5 [facility] Work Phone: Urine clarityon 07-29-2022 Clarity (U) Cloudy Clear [facility] Work Phone: Urine color determinationon 07-29-2022 Color (U) Yellow Yellow [facility] Work Phone: Urine glucose detectionon Glucose Ql (U) Normal mg/dl Normal [facility] Work Phone: Urine leukocyte esterase det ection by dipstickon 07-29-2022 Leukocyte esterase Test strip Ql (U) 500 /ul Negative [facility] Work Phone: Urine pHon 07-29-2022 pH (U) 5.0 [pH] 5.0 - 8.0 [facility] Work Phone: Urine sediment bacteria coun t by microscopy (number/high power field)on 07-29-2022 Bacteria LM.HPF (Urine sed) [#/Area] 2 /[HPF] None Seen [facility] Work Phone: Urine specific gravity measu rementon 07-29-2022 Specific gravity (U) [Rel density] 1.025 1.002-1.030 [facility] Work Phone: Urobilinogen Auto test strip Ql (U)on 07-29-2022 Urobilinogen Ql (U) Normal mg/dl Normal [facility] Work Phone: Culture, urineon 03-13-2022 Bacteria identified Cx Nom (U) Presumptive E. coli [facility] Work Phone: Bacteria identified Cx Nom (U) Positive [facility] Work Phone: Culture, urine Bacteria identified Cx Nom (U) Escherichia coli [facility] Work Phone: Vital Signs Date Time Vital Sign Value Performing Clinician Faci lity 05-30-2025 16:07-0400 Body temperature 97.8 [degF] Dr. Jacquie Coleman MD Work Phone: [facility] 05-30-2025 16:07-0400 Diastolic blood pressure 54 mm[Hg] Dr. Jacquie Coleman MD Work Phone: [facility] 05-30-2025 16:07-0400 Heart rate 55 /min Dr. Jacquie Coleman MD Work Phone: [facility] 05-30-2025 16:07-0400 Respiratory rate 15 /min Dr. Jacquie Coleman MD Work Phone: [facility] 05-30-2025 16:07-0400 SaO2% (BldA) [Mass fraction] 95 % Dr. Jacquie Coleman MD Work Phone: [facility] 05-30-2025 16:07-0400 Systolic blood pressure 111 mm[Hg] Dr. Jacquie Coleman MD Work Phone: [facility] 05-30-2025 14:58-0400 Inhaled oxygen flow rate 3 L/min Dr. Jacquie Coleman MD Work Phone: [facility] 05-30-2025 10:56-0400 Body height 157.[address] Jacquie Coleman MD Work Phone: [facility] 05-30-2025 10:56-0400 Body mass index (BMI) [Ratio] 30.4 kg/m2 Dr. Jacquie Coleman MD Work Phone: [facility] 05-30-2025 10:56-0400 Body weight 75.[address] Jacquie Coleman MD Work Phone: [facility] 05-05-2025 23:26-0400 Body temperature 98.1 [degF] Dr. Jacquie Coleman MD Work Phone: [facility] 05-05-2025 23:26-0400 Diastolic blood pressure 64 mm[Hg] Dr. Jacquie Coleman MD Work Phone: [facility] 05-05-2025 23:26-0400 Heart rate 79 /min Dr. Jacquie Coleman MD Work Phone: [facility] 05-05-2025 23:26-0400 Respiratory rate 18 /min Dr. Jacquie Coleman MD Work Phone: [facility] 05-05-2025 23:26-0400 SaO2% (BldA) [Mass fraction] 97 % Dr. Jacquie Coleman MD Work Phone: [facility] 05-05-2025 23:26-0400 Systolic blood pressure 122 mm[Hg] Dr. Jacquie Coleman MD Work Phone: [phone] [place] [address] 05-05-2025 22:36-0400 Inhaled oxygen flow rate 2 L/min Dr. Jacquie Coleman MD Work Phone: [phone] [place] [address] 05-05-2025 19:15-0400 Body height 157.[address] Jacquie Coleman MD Work Phone: [facility] 05-05-2025 19:15-0400 Body mass index (BMI) [Ratio] 31.8 kg/m2 Dr. Jacquie Coleman MD Work Phone: [facility] 05-05-2025 19:15-0400 Body weight 79.[address] Jacquie Coleman MD Work Phone: [facility] 03-25-2025 08:01-0400 Body mass index (BMI) [Ratio] 30.9 kg/m2 Dr. Jacquie Coleman MD Work Phone: [facility] 03-25-2025 08:01-0400 Body weight 76.[address] Jacquie Coleman MD Work Phone: [facility] 03-25-2025 08:01-0400 Diastolic blood pressure 77 mm[Hg] Dr. Jacquie Coleman MD Work Phone: [facility] 03-25-2025 08:01-0400 Heart rate 58 /min Dr. Jacquie Coleman MD Work Phone: [facility] 03-25-2025 08:01-0400 Respiratory rate 18 /min Dr. Jacquie Coleman MD Work Phone: [facility] 03-25-2025 08:01-0400 Systolic blood pressure 141 mm[Hg] Dr. Jacquie Coleman MD Work Phone: [facility] 03-18-2025 02:08-0400 Body temperature 98.2 [degF] Dr. Jacuqie Coleman MD Work Phone: [facility] 03-18-2025 02:08-0400 Diastolic blood pressure 72 mm[Hg] Dr. Jacquie Coleman MD Work Phone: [facility] 03-18-2025 02:08-0400 Heart rate 86 /min Dr. Jacquie Coleman MD Work Phone: [facility] 03-18-2025 02:08-0400 Respiratory rate 18 /min Dr. Jacuqie Coleman MD Work Phone: [facility] 03-18-2025 02:08-0400 SaO2% (BldA) [Mass fraction] 98 % Dr. Jacquie Coleman MD Work Phone: [facility] 03-18-2025 02:08-0400 Systolic blood pressure 144 mm[Hg] Dr. Jacquie Coleman MD Work Phone: [facility] 03-17-2025 23:23-0400 Body mass index (BMI) [Ratio] 32.3 kg/m2 Dr. Jacquie Coleman MD Work Phone: [facility] 03-17-2025 23:23-0400 Body weight 80.[address] Jacquie Coleman MD Work Phone: [facility] 03-17-2025 04:00-0400 Body temperature 98.2 [degF] Dr. Jacquie Coleman MD Work Phone: [facility] 03-17-2025 04:00-0400 Diastolic blood pressure 59 mm[Hg] Dr. Jacquie Coleman MD Work Phone: [facility] 03-17-2025 04:00-0400 Heart rate 74 /min Dr. Jacquie Coleman MD Work Phone: [facility] 03-17-2025 04:00-0400 Respiratory rate 18 /min Dr. Jacquie Coleman MD Work Phone: [facility] 03-17-2025 04:00-0400 SaO2% (BldA) [Mass fraction] 96 % Dr. Jacquie Coleman MD Work Phone: [facility] 03-17-2025 04:00-0400 Systolic blood pressure 107 mm[Hg] Dr. Jacquie Coleman MD Work Phone: [facility] 03-17-2025 02:45-0400 Inhaled oxygen flow rate 6 L/min Dr. Jacquie Coleman MD Work Phone: [facility] 03-17-2025 01:40-0400 Body height 157.[address] Jacquie Coleman MD Work Phone: [facility] 03-17-2025 01:40-0400 Body mass index (BMI) [Ratio] 31.8 kg/m2 Dr. Jacquie Coleman MD Work Phone: [facility] 03-17-2025 01:40-0400 Body weight 78.[address] Jacquie Coleman MD Work Phone: [facility] 02-23-2025 12:56-0400 Body height 157.[address] Jacquie Coleman MD Work Phone: [facility] 02-23-2025 12:56-0400 Body mass index (BMI) [Ratio] 31.1 kg/m2 Dr. Jacquie Coleman MD Work Phone: [facility] 02-23-2025 12:56-0400 Body weight 77.[address] Jacquie Coleman MD Work Phone: [phone] [place] [address] 02-23-2025 12:56-0400 Diastolic blood pressure 86 mm[Hg] Dr. Jacquie Coleman MD Work Phone: [phone])[phone] [place] [address] 02-23-2025 12:56-0400 Heart rate 89 /min Dr. Jacquie Coleman MD Work Phone: [phone])[phone] [place] [address] 02-23-2025 12:56-0400 Respiratory rate 16 /min Dr. Jacquie Coleman MD Work Phone: [phone] [place] [address] 02-23-2025 12:56-0400 SaO2% (BldA) [Mass fraction] 96 % Dr. Jacquie Coleman MD Work Phone: [phone] [place] [address] 02-23-2025 12:56-0400 Systolic blood pressure 156 mm[Hg] Dr. Jacquie Coleman MD Work Phone: [facility] 12-31-2024 14:58-0500 Body temperature 98 [degF] Dr. Jacquie Coleman MD Work Phone: [facility] 12-31-2024 14:58-0500 Diastolic blood pressure 57 mm[Hg] Dr. Jacquie Coleman MD Work Phone: [facility] 12-31-2024 14:58-0500 Heart rate 65 /min Dr. Jacquie Coleman MD Work Phone: [facility] 12-31-2024 14:58-0500 Respiratory rate 16 /min Dr. Jacquie Coleman MD Work Phone: [facility] 12-31-2024 14:58-0500 SaO2% (BldA) [Mass fraction] 95 % Dr. Jacquie Coleman MD Work Phone: [facility] 12-31-2024 14:58-0500 Systolic blood pressure 121 mm[Hg] Dr. Jacquie Coleman MD Work Phone: [facility] 12-31-2024 00:13-0500 Body mass index (BMI) [Ratio] 31.4 kg/m2 Dr. Jacquie Coleman MD Work Phone: [facility] 12-31-2024 00:13-0500 Body weight 78.[address] Jacquie Coleman MD Work Phone: [facility] 11-19-2023 19:31-0500 Diastolic blood pressure 66 mm[Hg] [facility] 11-19-2023 19:31-0500 Heart rate 87 /min [facility] 11-19-2023 19:31-0500 Respiratory rate 16 /min [facility] 11-19-2023 19:31-0500 SaO2% (BldA) [Mass fraction] 96 % [facility] 11-19-2023 19:31-0500 Systolic blood pressure 137 mm[Hg] [facility] 11-19-2023 16:01-0500 Body height 157.48 cm [facility] 11-19-2023 16:01-0500 Body mass index (BMI) [Ratio] 30.7 kg/m2 [facility] 11-19-2023 16:01-0500 Body temperature 97.3 [degF] [facility] 11-19-2023 16:01-0500 Body weight 76.1 kg [facility] 07-29-2022 13:21-0400 Body height 157.[address] Jacquie Coleman Work Phone: [facility] Work Phone: 07-29-2022 13:21-0400 Body mass index (BMI) [Ratio] 31.1 kg/m2 Dr. Jacquie Coleman Work Phone: [facility] Work Phone: 07-29-2022 13:21-0400 Body temperature 98.7 [degF] Dr. Jacquie Coleman Work Phone: [facility] Work Phone: 07-29-2022 13:21-0400 Body weight 77.[address] Jacquie Coleman Work Phone: [facility] Work Phone: 07-29-2022 13:21-0400 Diastolic blood pressure 64 mm[Hg] Dr. Jacquie Coleman Work Phone: [facility] Work Phone: 07-29-2022 13:21-0400 Heart rate 70 /min Dr. Jacquie Coleman Work Phone: [facility] Work Phone: 07-29-2022 13:21-0400 Respiratory rate 14 /min Dr. Jacquie Coleman Work Phone: [facility] Work Phone: 07-29-2022 13:21-0400 SaO2% (BldA) [Mass fraction] 98 % Dr. Jacquie Coleman Work Phone: [facility] Work Phone: 07-29-2022 13:21-0400 Systolic blood pressure 122 mm[Hg] Dr. Jacquie Coleman Work Phone: [facility] Work Phone: Encounters Encounter Date Encounter Type Care Provider Facility Start: 05-30-2025 End: 05-30-2025 Emergency department patient visit Dr. Jacquie Coleman MD Work Phone: -Emergency Department Work Phone: Start: 05-05-2025 End: 05-05-2025 Emergency department patient visit Dr. Jacquie Coleman MD Work Phone: -Emergency Department Work Phone: Start: 03-25-2025 End: 03-25-2025 Patient encounter procedure Brittney CORDOVA -[facility] Work Phone: Start: 03-25-2025 End: 03-25-2025 ambulatory [facility] Facility:[facility] Start: 03-17-2025 End: 03-18-2025 Emergency department patient visit Dr. Dwight Brown-Tamica HATCH -Emergency Department Work Phone: Start: 03-16-2025 End: 03-17-2025 Emergency department patient visit Dr. Jacquie Coleman MD Work Phone: -Emergency Department Work Phone: Start: 03-07-2025 ambulatory [facility] Facility: [facility] Start: 03-07-2025 Non-patient / Non-visit Dr. Felicitas CAN -[facility] Start: 03-07-2025 End: 03-07-[address] Jacquie Coleman MD Work Phone: [facility] Work Phone: Start: 03-07-2025 End: 03-07-[address] Jozef Pena MD -Cardiovascular Services Work Phone: Start: 03-07-2025 End: 03-07-2025 ambulatory [facility] Facility:[facility] Start: 02-23-2025 End: 02-23-[address] Jozef Pena MD -[facility] Work Phone: Start: 02-23-2025 End: 02-23-2025 ambulatory [facility] Facility:[facility] Start: 01-11-2025 End: 01-11-[address] Jacquie Coleman MD -[facility] Start: 01-11-2025 End: 01-11-2025 ambulatory [facility] Facility:[facility] Start: 12-31-2024 Non-patient / Non-visit Dr. Elisabet Fishman MD -[facility] Work Phone: Start: 12-31-2024 ambulatory Jozef Pena Facility:[facility] Start: 12-31-2024 Non-patient / Non-visit Dr. Felicitas CAN -[facility] Start: 12-30-2024 End: 12-31-2024 ambulatory Edda Langston Facility:[facility] Start: 12-30-2024 End: 12-31-2024 Evaluation and management of inpatient Dr. Elisabet Fishman MD -Progressive Care Unit Work Phone: Start: 06-15-2024 End: 06-15-2024 ambulatory Jacquie Coleman Facility:[facility] Start: 11-27-2023 End: 11-27-2023 ambulatory [facility] Work Phone: Start: 11-27-2023 End: 11-27-2023 Patient encounter procedure [facility]-Laboratory [facility] Start: 11-19-2023 End: 11-19-2023 Emergency department patient visit [facility]-Emergency Department Work Phone: Start: 09-22-2023 End: 09-22-2023 ambulatory [facility] Work Phone: Start: 09-22-2023 End: 09-22-2023 [facility] Start: 03-24-2023 End: 03-24-2023 ambulatory [facility] Work Phone: Start: 03-24-2023 End: 03-24-2023 [facility] Start: 09-17-2022 End: 09-17-[address] Jacquie Coleman Work Phone: [facility] Work Phone: Start: 09-17-2022 End: 09-17-[address] Jacquie Coleman Work Phone: [facility]-Laboratory, [facility] Start: 07-29-2022 End: 07-29-[address] Jacquie Coleman Work Phone: [facility] Work Phone: Start: 07-29-2022 End: 07-29-[address] Jacquie Coleman Work Phone: [facility]-Laboratory, Specimen Start: 07-29-2022 End: 07-29-[address] Jacquie Coleman Work Phone: [facility] Start: 03-13-2022 End: 03-13-[address] Jacquie Coleman Work Phone: [facility]-Laboratory, Specimen Start: 01-02-2022 End: 01-02-[address] Jacquie Coleman Work Phone: [facility]-Outpatient Breast Imaging Start: 12-24-2021 Non-patient / Non-visit Dr. Shiraz Coleman Work Phone: [facility] Start: 12-24-2021 End: 12-24-[address] Jacquie Coleman Work Phone: [facility]-Cardiovascula r Services Procedures Date Procedure Procedure Detail [...] Activity Detail Author Start: 08-24-2025 ambulatory Ambulatory Facility:[facility] Start: 05-30-2025 Oxygen therapy [facility] Start: 05-30-2025 End: 05-30-2025 [facility] Start: 05-30-2025 End: 05-30-2025 [facility] Start: 05-05-2025 [facility] Start: 05-05-2025 [facility] Start: 05-05-2025 [facility] Start: 03-25-2025 Evaluation of diagno stic study results [facility] Start: 03-18-2025 [facility] Start: 03-17-2025 End: 03-17-2025 [facility] Start: 03-17-2025 [facility] Start: 12-31-2024 Patient discharge [facility] Start: 12-31-2024 Following clinical p athway protocol [facility] Start: 12-31-2024 Assessment of risk o f venous thromboembolism [facility] Start: 12-31-2024 Insertion of cathete r into peripheral vein [facility] Start: 12-31-2024 Introduction of urin karlos catheter [facility] Start: 12-31-2024 Measuring intake and output [facility] Start: 12-31-2024 Oxygen therapy [facility] Start: 12-31-2024 Providing care accor ding to standard [facility] Start: 12-31-2024 Provision of activit y privileges [facility] Start: 12-31-2024 Referral to service [facility] Start: 12-31-2024 [facility] Start: 12-30-2024 Admission procedure [facility] Start: 11-19-2023 [facility] Patient Education [facility] Work Phone: Patient referral [facility] Work Phone: Troponin T.cardiac [Mass/volume] in Serum or Plasma by High sensitivity method [facility] Troponin T.cardiac [Mass/volume] in Serum or Plasma by High sensitivity method [facility] Payers Date Payer Category Payer Medicare [id number] 2024 Self-pay [id number] 2024 Unknown [id number] Unknown [id number] 2.16.8 [id number] Unknown [id number] 2.16.8 [id number] Unknown [id number] 2.16.8 [id number] Unknown [id number] 2.16.8 [id number] Unknown [id number] 2.16.8 [id number] Unknown [id number] 2.16.8 [id number] Unknown [id number] 2.16.8 [id number] Unknown [id number] 2.16.8 [id number] Unknown [id number] 2.16.8 [id number] Unknown [id number] 2.16.8 [id number] Unknown [id number] 2.16.8 [id number] Unknown [id number] 2.16.8 [id number] Unknown [id number] 2.16.8 [id number] Unknown [id number] 2.16.8 [id number] Social History Date Type Detail Facility Start: 08-07-2021 End: 11-19-2023 Tobacco smoking status NMIS Unknown if ever smoked [facility] Start: 01-25-2020 None [facility] Start: 01-25-2020 Spouse/ Signif icant Other [facility] Start: 1940 Sex Assigned At Female [facility] Start: 12-30-2024 End: 05-30-2025 Tobacco smoking status NHIS Never smoked tobacco (finding) [facility] Start: 03-10-2025 End: 03-17-2025 Sex Female (finding) [facility] Goals Date Patient Goal Desired Activity /State Functional Status Date Assessment Result Facility 12-31-2024 Functional status Chair [facility] Work Phone: Mental Status Date Assessment Result Facility 05-30-2025 Cognitive function Awake;Alert;A ppropriate;Follow s Commands [facility] Work Phone: 05-30-2025 Cognitive function Arousable To Voice/Nam e [facility] Work Phone: 05-05-2025 Cognitive function Awake;Alert;A ppropriate;Follow s Commands [facility] Work Phone: 05-05-2025 Cognitive function Arousable To Voice/Nam e [facility] Work Phone: 03-17-2025 Cognitive function Level Of Cons ciousness Awake;Alert;Appropriate;Follow s Commands [facility] Work Phone: 03-17-2025 Cognitive function Awake;Alert;A ppropriate;Follow s Commands [facility] Work Phone: 03-17-2025 Cognitive function Arousable To Voice/Nam e [facility] Work Phone: 12-31-2024 Cognitive function Voice/Name [facility] Work Phone: Clinical Notes 11-19-2023 to 05-30-2025 Note Date & Type Note Facility 05-30-2025 Radiology Diagnostic study note [facility] Imaging Services [address] [place], [place] [address] Chest PA and Lateral MR#: [id number] Acct: [id number] Name: AL LEWIS Rep #: [id number] : 1940 F 84 From: Pet er Peer DO PCP: Dr. Jacquie Coleman MD Status: PRE ER Study:Chest PA and Lateral Date of Exam: 05/30/25 Exam# [id number] Ordering Dr: Thor Christy PROCEDURE: CHEST PA AND LATERAL 05/30/2025 REASON FOR EXAM: CHEST PAIN TECHNIQUE: CHEST PA AND LATERAL COMPARISON: Chest radiographs May 05, 2025 FINDINGS: Hardware: None. Heart: Normal size. Mediastinum: Unremarkable contour Lungs: Clear Bones: No aggressive process RAD/Chest PA and Lateral IMPRESSION: Negative for acute process. No significant interval change. Reading [facility] CC: Dr. Jacquie Coleman MD; ED PHYSICIAN PROVIDER ~ Hospice Consultant: Signed [facility] 05-05-2025 Radiology Diagnostic study note [facility] Imaging Services [address] [place], [place] [id number] Chest PA and Lateral MR#: [id number] Acct: [id number] Name: AL LEWIS Rep #: [id number] : 1940 F 84 From: Radha Duarte MD PCP: Dr. Jacquie Coleman MD Status: REG ER Study:Chest PA and Lateral Date of Exam: 05/05/25 Exam# [id number] Ordering Dr: Dwight Gray DO PROCEDURE: CHEST [...] Lateral IMPRESSION: Stable mild cardiomegaly. Reading Location: [facility] CC: Dr. Dwight Patricia DO; Dr. Jacquie Coleman MD ~ Hospice Consultant: Signed [facility] 02-23-2025 Evaluation note Diagnosis Onset Date Resolution Atrial fibrillation with RVR acute February 23, 2025 12:53pm Hypercholesterolemia chronic Apr2024 12:53pm Hypertension chronic February 23, 12:53pm Atrial fibrillation with RVR acute March 25, 2025 9:14am Hypercholesterolemia chronic March 25, 2025 9:14am Hypertension chronic March 25 9:14am [facility] Work Phone: 1(131) 889-440402-07-2025 [facility] Medical Records Department [address] [place] [address] Discharge Summary 12/31/24 1724 MR#: [id number] Acct: [id number] Name: AL LEWIS Rep #: [id number] : 1940 84 From: Elisabet Fishman MD PCP: Dr. Jacquie Coleman MD Status:ADM KARLA Location: [place] [address] Providers Date of Admission: 12/30/24 Date of [...] Count 241, MPV 10.3, (more content not included)...[facility]02-07-2025 Evaluation note* Diagnosis Onset Date Resolution Status Admit Date Atrial fibrillation with RVR acute December 30, 2024 11:21pm Atrial fibrillation with RVR acute February 23, 2025 12:53pm Hypercholesterolemia chronic Apri l 2024 12:53pm Hypertension chronic February 23, 2 025 12:53pm [facility] Work Phone: 1(978) 612-607312-27-2023 Discharge summary Author Sebastian Meyer [facility] November 19, 2023 8:41pm Note Date/Time November 19, 2023 5:37pm [facility] Medical Records Department [address] [place] [address] Emergency Department Summary 11/19/23 MR#: [id number] Acct: [id number] Name: AL LEWIS Rep #:[id number] : 1940 83 From: Sebastian Meyer MD PCP: Dr. Jacquie Coleman MD Status:REG ER Location: ED HPI <ART Rosenberg - Last Filed: 11/19/23 19:02> HPI - [...] <ART Rosenberg - Last Filed: 11/19/23 19:02> [facility] Medical History Actinic keratosis Bone fracture [...] Oxygen Delivery Method Room Air Room Air [facility] <ART Rosenberg - Last Filed: 11/19/23 19:02> [facility] Narrative Medical decision making narrative: Patient has [...] % (Auto) 56.9 Lymph % (Auto) 32.0 [place] % (Auto) 9.3 Eos % (Auto) 0.9 [...] Meyer MD - Last Filed: 11/19/23 20:41> [facility] Lab Data Labs: Laboratory Results - last 24 hr 11/19/23 17:25 WBC 9.6 RBC 3.86 L Hgb 11.5 L Hct 34.5 L MCV 89.4 MCH 29.8 MCHC 33.3 RDW Std Deviation 45.9 H RDW Coeff of Bob 14.2 Plt Count 240 MPV 10.1 Immature Gran % (Auto) 0.300 Neut % (Auto) 56.9 Lymph % (Auto) 32.0 [place] % (Auto) 9.3 Eos % (Auto) 0.9 [...] Ratio 0.9 Management Discussion w/another healthcare provider: [facility]) Treatment and Re-Evaluation Comments:: I [...] your Primary Care Provider. Call [facility] ([phone]) or report to the closest Emergency Room. Call 911 if necessary. 11/19/232040 <Electronically signed by Sebastian Meyer MD> Cosigner Signature (if applicable): 11/19/231901 <Electronically signed by Analy CORDOVA> CC: Dr. Jacquie Coleman MD; Rodolfo Friend, DO ~ Signed [facility] Work Phone: Evaluation noteNo assessment information available [facility] Work Phone: Evaluation note* Diagnosis Onset Date Resolution Status Cystitis acute [facility] Work Phone: Hospital Discharge instructions Additional Instructions Stop taking Aleve. Start taking pantoprazole twice daily. Call the GI office for follow-up appointment if any symptoms worsen come back to the ER. This includes increased volume of black stools, severe abdominal pain, chest pain, shortness of breath, dizziness or lightheadedness.[facility] Work Phone: Hospital Discharge instructions Additional Instructions Follow-up with cardiology. Return back to the ED if symptoms change or worsen. Continue your medications.[facility] Work Phone: Hospital Discharge instructionsAdditional Instructions Follow-up with cardiology. Start digoxin tomorrow and continue the same dose of diltiazem and metoprolol. Call cardiology office tomorrow to make an appointment. Return back to the ED if symptoms change or worsen.[facility] Work Phone: Chief Complaint and Reason for Visit Chief Complaint MURMUR, EPISODES OF LOSS OF LEG MUSCLE STRENGTH LEFT BREAST PAIN Chief Complaint CONCERN FOR UTI Reason for Visit Cystitis Chief Complaint GI BLEED Chief Complaint Admit Date PAF RVR December 30, 2024 1 1:21pm PAF RVR December 31, 2024 5 :24pm S/P [facility] 12/31 ([facility]) February 23, 2025 1 2:53pm CAD [...] RVR December 31, 2024 5 :24pm S/P [facility] 12/31 ([facility]) February 23, 2025 1 2:53pm CAD March 07, 2025 7:0 2am Coronary artery disease March 07, 2025 11:03am PALPITATIONS March 16, 2025 11: 59pm Chief Complaint Admit Date S/P [facility] 12/31 ([facility] ER) February 23, 2025 1 2:53pm CAD March 07, 2025 7:0 2am Coronary artery disease March 07, 2025 11:03am PALPITATIONS March 16, 2025 11: 59pm PALPITATIONS March 17, 2025 11: 20pm S/P [facility] 03/17March 25, 2025 9:14am palpitations May 05, 2025 7:13 pm Reason for Visit Admit Date Atrial fibrillation with RVR February 23, 2025 12:53pm Hypercholesterolemia February 23, 2025 12: 53pm Hypertension February 23, 2025 12:5 3pm Atrial fibrillation with RVR March 25 9:14am Hypercholesterolemia March 25, 2025 9:14a m Hypertension March 25, 2025 9:14am Chief Complaint Admit Date S/P [facility] 12/31 ([facility]) February 23, 2025 1 2:53pm CAD March 07, 2025 7:0 2am Coronary artery disease March 07, 2025 11:03am PALPITATIONS March 16, 2025 11: 59pm PALPITATIONS March 17, 2025 11: 20pm S/P [facility] 03/17March 25, 2025 9:14am palpitations May 05, [...] Yes January 25, 2020 2:21pm Power of Guide Excursion Yes January 24 2:21pm Advance Directive Response Recorded Date/ Time Living Will No November 19, 2 023 5:31pm Power of Guide [place] No November 19, 2023 5:31pm Advance Directive Response Recorded Date/ Time Living Will Yes December 31 1:13am Do you have a Healthcare Power of Guide [place]ion? Yes December 31, 2024 1:13am Name of Medical Power of Guide [place] Son December 31, 2024 1:13am Advance Directive Response Recorded Date/ Time Living Will Yes December 31 1:13am Do you have a Healthcare Power of Guide [place]? Yes December 31, 2024 1:13am Name of Medical Power of Guide [place] Son December 31, 2024 1:13am Do you have a Healthcare Power of Guide [place]? Yes March 17, 2025 1:40am Advance Directive Response Recorded Date/ Time Do you have a Healthcare Power of Guide [place]? Yes March 17, 2025 1:40am Do you have a Healthcare Power of Guide [place]? Yes March 17, 2025 11:31pm Do you have a Healthcare Power of Guide [place]? No May 05, 2025 7:25pm Advance Directive Response Recorded Date/ Time Do you have a Healthcare Power of Guide [place]? No May 30, 2025 11:56am Do you have a Healthcare Power of Guide [place]ion? Yes March 17, 2025 1:40am Do you have a Healthcare Power of Guide [place]? Yes March 17, 2025 11:31pm Do you have a Healthcare Power of Guide [place]? No May 05, 2025 7:25pm Summary Purpose [...] Active Start: December 31, 2024 Dr. Elisabet Fsihman MD Other Provider Active St art: December [...] section and content) DATE CREATED AUTHOR 05/14/2025 [facility] FOR RECORDS PERTAINING TO PATIENTS WHO [...] BE BASED ON THE PRIMARY CLINICAL RECORDS. [employer] provides no warranty or guarantee of the accuracy or completeness of information in this document.
== END 2025-05-30 16:08 | disposition home or self-care (01) ==
PROVIDERS: Emergency Provider Surgery; PCP Family Medicine; Visit Provider Surgery
DX: I48.0 Paroxysmal atrial fibrillation (principal); N18.30 Chronic kidney disease, stage 3 unspecified; E78.5 Hyperlipidemia, unspecified; I12.9 Hypertensive chronic kidney disease with stage 1 through stage 4 chronic kidney disease, or unspecified chronic kidney disease; Z79.01 Long term (current) use of anticoagulants; Z79.899 Other long term (current) drug therapy
CPT/HCPCS: 71046; 80048; 83880; 84484; 85025; 85610; 92960; 93005; 96374; 96375; 99284; A4216

== ENCOUNTER 2025-06-30 17:07 | Inpatient (IN) | payer MEDICARE, OTHER, SELFPAY ==
[2025-06-30] VITALS (11 sets, daily range): BP systolic 151–182; BP diastolic 70–88; PULSE 55–80; RESP 12–18; TEMP 36.3–36.6; O2SAT 95–98; BMI 32.3; BMI 30.6
--- NOTE | 2025-06-30 17:38 | EX.ED.DYSGE1 ---
HPI <ART Rosenberg - Last Filed: 06/30/25 21:35> History of Present Illness Chief Complaint: Palpitations Narrative Narrative: 84-year-old female H of HTN, HLD, A-fib, CKD states she had malaise and a dull headache all day. She checks her vitals signs daily and this afternoon her blood pressure was 210/100 and heart rate ranged from 50-100 so she thought she might be in A-fib and presented to the ED. She states other than noting her vital signs were abnormal she did not have any symptoms and denies chest pain, shortness of breath, palpitations lightheadedness or syncope. She is on Eliquis 5 mg BID and metoprolol 25 mg BID and takes them around 8 AM and 5:30 PM so she took these prior to coming in. She states her A-fib started in December 2024 and she has had 6 ER visits for it. She has had electrocardioversion and multiple medication changes. She was on diltiazem and digoxin but then both were discontinued by cardiology and she is not sure why. [facility] <ART Rosenberg - Last Filed: 06/30/25 21:35> [facility] Medical History PAF (paroxysmal atrial fibrillation) Palpitations Cardiac murmur Vitamin D deficiency Atrial fibrillation with RVR Obesity GERD (gastroesophageal reflux disease) CKD (chronic kidney disease), stage III HLD (hyperlipidemia) Hypertension Cataracts, bilateral Home Medications ?Medication ?Instructions ?Recorded ?Last Taken ?Type simvastatin 10 mg tablet 10 mg PO QHS hyperlipidemia 06/24/16 06/30/25 17:00 History 10 mg pantoprazole 40 mg tablet,delayed 40 mg PO DAILY ulcer prevention 12/30/24 06/30/25 17:00 History release (Protonix) 40 mg apixaban 5 mg tablet (Eliquis) 5 mg PO BID #60 tabs 12/31/24 06/30/25 17:00 Rx 5 mg sennosides 8.6 mg tablet (Senokot) 8.6 mg PO DAILY constipation 12/31/24 06/30/25 17:00 History 8.6 mg metoprolol tartrate 25 mg tablet 25 mg PO BID #180 tabs 03/21/25 06/30/25 17:00 Rx 25 mg amiodarone 200 mg tablet 200 mg PO QDAY #30 tabs 06/01/25 06/30/25 08:00 Rx 200 mg potassium chloride 10 mEq 10 meq PO DAILY with the lasix 06/01/25 06/30/25 17:00 History tablet,extended release 10 mEq furosemide 20 mg tablet (Lasix) 20 mg PO DAILY edema 06/30/25 06/30/25 17:00 History 20 mg Allergy/AdvReac Type Severity Reaction Status Date / Time morphine Allergy Anaphylaxis Verified 06/30/25 17:10 niacin Allergy Rash Verified 06/30/25 17:10 procaine HCl (From Novocain) Allergy Anaphylaxis Verified 06/30/25 17:10 tetracycline Allergy Rash Verified 06/30/25 17:10 Family History Father Cancer Hypertension Respiratory disease Mother Diabetes Epilepsy Heart disease Brother CVA (cerebral vascular accident) Surgical History History of cataract surgery History of appendectomy History of total hysterectomy Social History household members: none Smoking Status: Never smoker alcohol intake: never substance use type: does not use additional social history: Does Take Aspirin Does Not Take Ibuprofen ROS <ART Rosenberg - Last Filed: 06/30/25 21:35> ROS ED ROS Narrative Constitutional: Negative for fever, chills, malaise. CVS: Negative for palpitations, chest pain, syncope. Respiratory: Negative for shortness of breath, cough. GI: Negative for abdominal pain, nausea, vomiting. EXAM <ART Rosenberg - Last Filed: 06/30/25 21:35> Physical Exam Narrative Exam Narrative: CONST: Patient sitting in no acute distress. EYES: Normal inspection. NECK: Normal inspection. RESP: No respiratory distress, CTAB. CVS: Regular rate and rhythm, no murmur, no gallop. ABD: Soft and nontender, no guarding or rebound, nondistended. SKIN: Color normal, no rash, warm, dry, intact. EXTREMITIES: Normal appearance, no pedal edema. NEURO: Alert and answering questions appropriately. PSYCH: Normal affect. Const Vital Signs: 06/30/25 17:08 06/30/25 18:08 06/30/25 19:00 Temperature 97.4 F L Temperature Source Oral Pulse Rate 80 58 L 57 L Respiratory Rate 18 14 18 Blood Pressure 182/88 H 157/77 H 162/84 H Blood Pressure Mean 119 103 110 Pulse Ox 96 98 98 Oxygen Delivery Method Room Air Room Air 06/30/25 20:00 06/30/25 21:00 06/30/25 21:16 Temperature Temperature Source Pulse Rate 55 L 55 L 59 L Respiratory Rate 18 12 14 Blood Pressure 151/70 H Blood Pressure Mean 97 Pulse Ox 96 98 97 Oxygen Delivery Method Room Air Room Air Room Air 06/30/25 21:20 Temperature 97.4 F L Temperature Source Pulse Rate 65 Respiratory Rate 18 Blood Pressure 151/70 H Blood Pressure Mean 97 Pulse Ox 97 Oxygen Delivery Method <Dr. Dwight Patricia DO - Last Filed: 07/02/25 15:41> Physical Exam Const Vital Signs: 06/30/25 17:08 06/30/25 18:08 06/30/25 19:00 Temperature 97.4 F L Temperature Source Oral Pulse Rate 80 58 L 57 L Respiratory Rate 18 14 18 Blood Pressure 182/88 H 157/77 H 162/84 H Blood Pressure Mean 119 103 110 Pulse Ox 96 98 98 Oxygen Delivery Method Room Air Room Air 06/30/25 20:00 06/30/25 21:00 06/30/25 21:16 Temperature Temperature Source Pulse Rate 55 L 55 L 59 L Respiratory Rate 18 12 14 Blood Pressure 151/70 H Blood Pressure Mean 97 Pulse Ox 96 98 97 Oxygen Delivery Method Room Air Room Air Room Air 06/30/25 21:20 Temperature 97.4 F L Temperature Source Pulse Rate 65 Respiratory Rate 18 Blood Pressure 151/70 H Blood Pressure Mean 97 Pulse Ox 97 Oxygen Delivery Method MDM <ART Rosenberg - Last Filed: 06/30/25 21:35> MDM MDM Narrative Medical decision making narrative: Differential includes but not limited to chronic hypertension, arrhythmia, ACS 84-year-old female presented for hypertension and variable heart rate at home. She was concerned she was in A-fib because she has had multiple episodes of A-fib RVR in the past requiring cardioversion. She never had chest pain, shortness of breath, or palpitations, only concerned about her vital signs. She took her evening dose of metoprolol and Eliquis prior to arrival and here blood pressure is 182/88, she is 80 in normal sinus rhythm, 96% on room air. Blood pressure trending down on its own without intervention. Heart sounds regular without murmur. Lungs are clear. CBC and BMP are unremarkable. Initial troponin was 16 and delta went up to 165. Patient still denies chest pain and repeat EKG is unchanged. She took her Eliquis 5 mg at 530 and in the ED was given full dose aspirin and I discussed the case with the hospitalist for admission. External records reviewed: Cardiology visit 06/01/2025 Patient has had multiple cardioversions in the past in the emergency room. They stopped her digoxin which she had not picked up yet and started her on amiodarone 200 mg daily. Note stated she should continue diltiazem and metoprolol. History & Record Review Discussion w/independent historian: Patient Additional record(s) reviewed:: Prior ED visit and Prior labs Lab Data Attestation: I reviewed the patient's lab results. Labs: Laboratory Results - last 24 hr 06/30/25 06/30/25 06/30/25 17:20 20:00 20:12 WBC 7.0 RBC 4.96 Hgb 15.1 H Hct 45.5 MCV 91.7 MCH 30.4 MCHC 33.2 RDW Std Deviation 48.1 H RDW Coeff of Bob 14.3 Plt Count 214 MPV 10.6 Immature Gran % (Auto) 0.400 Neut % (Auto) 43.3 L Lymph % (Auto) 45.5 H [place] % (Auto) 8.5 Eos % (Auto) 1.6 Baso % (Auto) 0.7 Absolute Neuts (auto) 3.0 Absolute Lymphs (auto) 3.20 Nucleated RBC % 0 Sodium 137 Potassium 3.9 Chloride 101 Carbon Dioxide 22.3 Anion Gap 14 BUN 15 Creatinine 0.91 Estim Creat Clear Calc 45.17 L Est GFR (MDRD) Non-Af 62 BUN/Creatinine Ratio 16.1 Glucose 100 H Calcium 9.3 Troponin T High Sens 16 H D Troponin T Hi Sens 2 Hr 165 H* Urine Color Straw Urine Clarity Clear Urine pH 6.5 Ur Specific Occidental 1.010 Urine Protein Negative Urine Glucose (UA) Normal Urine Ketones Negative Urine Occult Blood Negative Urine Nitrite Negative Urine Bilirubin Negative Urine Urobilinogen Normal Ur Leukocyte Esterase Negative Radiography Diagnostic Testing: Clinical Impression(s) from Imaging Studies Chest X-Ray 06/30/25 17:45 IMPRESSION: NO ACUTE FINDINGS. Reading Location: [facility] ED attending interpretation of two-view chest x-ray shows normal heart size, no acute infiltrate. EKG Initial EKG: Attestation: I personally reviewed and interpreted this EKG as follows: Interpretation: Sinus Rhythm and No Acute Injury Pattern Comments: Normal sinus rhythm at 76 bpm Left anterior fascicular block No STEMI <Dr. Dwight Patricia, DO - Last Filed: 07/02/25 15:41> [facility] MDM Narrative Medical decision making narrative: Differential includes but not limited to chronic hypertension, arrhythmia, ACS 84-year-old female presented for hypertension and variable heart rate at home. She was concerned she was in A-fib because she has had multiple episodes of A-fib RVR in the past requiring cardioversion. She never had chest pain, shortness of breath, or palpitations, only concerned about her vital signs. She took her evening dose of metoprolol and Eliquis prior to arrival and here blood pressure is 182/88, she is 80 in normal sinus rhythm, 96% on room air. Blood pressure trending down on its own without intervention. Heart sounds regular without murmur. Lungs are clear. CBC and BMP are unremarkable. Initial troponin was 16 and delta went up to 165. Patient still denies chest pain and repeat EKG is unchanged. She took her Eliquis 5 mg at 530 and in the ED was given full dose aspirin and I discussed the case with the hospitalist for admission. External records reviewed: Cardiology visit 06/01/2025 Patient has had multiple cardioversions in the past in the emergency room. They stopped her digoxin which she had not picked up yet and started her on amiodarone 200 mg daily. Note stated she should continue diltiazem and metoprolol. Supervisory Physician Note Patient was seen and examined with the Advanced Practice Provider. Nursing notes and vital signs have been reviewed. Pertinent old records have been reviewed. I agree with the essential elements of the JODI's history, physical exam, assessment, and plan. The differential diagnosis and management options were discussed with the JODI. I participated in determining and agree with the management, procedures, final impression and disposition as documented. See changes noted by me. Please see addendum or separate note for any additional details. Gen: A&O x3, NAD Head: Normocephalic, atraumatic Eyes: No sclera icterus, conjunctiva clear ENT: Moist mucous membranes Neck: Trachea midline, No JVD CV: RRR, no murmurs, no peripheral edema Resp: Lungs CTA BL, no w/r/c GI: Abd soft, non-distended, non-tender, no r/r/g Musc: Full ROM, no deformity Skin: Warm, dry Neuro: Alert, oriented, grossly intact, sensation intact Psych: Cooperative, appropriate mood and affect Patient was not placed on heparin for her NSTEMI given that she is on Eliquis and had already taken it this evening Impression: 1. NSTEMI 2. CKD 3. HTN 4. History of paroxysmal atrial fibrillation Lab Data Labs: Laboratory Results - last 24 hr 06/30/25 06/30/25 06/30/25 17:20 20:00 20:12 WBC 7.0 RBC 4.96 Hgb 15.1 H Hct 45.5 MCV 91.7 MCH 30.4 MCHC 33.2 RDW Std Deviation 48.1 H RDW Coeff of Bob 14.3 Plt Count 214 MPV 10.6 Immature Gran % (Auto) 0.400 Neut % (Auto) 43.3 L Lymph % (Auto) 45.5 H [place] % (Auto) 8.5 Eos % (Auto) 1.6 Baso % (Auto) 0.7 Absolute Neuts (auto) 3.0 Absolute Lymphs (auto) 3.20 Nucleated RBC % 0 Sodium 137 Potassium 3.9 Chloride 101 Carbon Dioxide 22.3 Anion Gap 14 BUN 15 Creatinine 0.91 Estim Creat Clear Calc 45.17 L Est GFR (MDRD) Non-Af 62 BUN/Creatinine Ratio 16.1 Glucose 100 H Calcium 9.3 Troponin T High Sens 16 H D Troponin T Hi Sens 2 Hr 165 H* Urine Color Straw Urine Clarity Clear Urine pH 6.5 Ur Specific [place]idental 1.010 Urine Protein Negative Urine Glucose (UA) Normal Urine Ketones Negative Urine Occult Blood Negative Urine Nitrite Negative Urine Bilirubin Negative Urine Urobilinogen Normal Ur Leukocyte Esterase Negative Radiography Diagnostic Testing: Clinical Impression(s) from Imaging Studies Chest X-Ray 06/30/25 17:45 IMPRESSION: NO ACUTE FINDINGS. Reading Location: [id number] Discharge Plan Dx/Rx/DC Orders Clinical Impression: Hypertension, PAF (paroxysmal atrial fibrillation), Non-ST elevation RI (NSTEMI) Disposition Disposition: Acute Care Hospital [facility] Discharge Date/Time: 06/30/25 22:17
--- NOTE | 2025-06-30 17:45 | RAD_ITS ---
PROCEDURE: CHEST PA AND LATERAL 06/30/2025 REASON FOR EXAM: PALPITATIONS TECHNIQUE: CHEST PA AND LATERAL COMPARISON: 05/30/2025. FINDINGS: The heart is enlarged. The lungs are clear. No acute osseous abnormalities. RAD/Chest PA and Lateral IMPRESSION: NO ACUTE FINDINGS. Reading Location: [id number]
--- NOTE | 2025-06-30 18:05 | EKG12_ITS ---
Test Reason : CP Blood Pressure : */* mmHG Vent. Rate : 76 BPM Atrial Rate : 76 BPM P-R Int : 184 ms QRS Dur : 116 ms QT Int : 412 ms P-R-T Axes : 66 -49 41 degrees QTcB Int : 463 ms Normal sinus rhythm Left anterior fascicular block Minimal voltage criteria for LVH, may be normal variant ( [place] product ) Abnormal ECG Confirmed by ERIN ALLEN [id number]), editor in chief GRIFFIN MARIE ([id number]) on 07/04/2025 8:06:34 AM Referred By: TANVI/KLAUDIA Confirmed By: ERIN ALLEN
[2025-06-30 18:17] LABS: Hematocrit 45.5 % (37-47); Hemoglobin 15.1 g/dL (12.0-15.0); Immature Granulocytes Count 0.030 X10^3/uL (0.0-0.0); Mean Corp Hgb Conc 33.2 g/dL (32-36); Mean Corpuscular Volume 91.7 fL (81-99); Mean Platelet Vol. 10.6 fl (6.2-12.0); NRBC Flagged by Analyzer 0 % (0-5); Platelet Count 214 K/mm3 (150-450); RBC Distribution Width CV 14.3 % (11.6-14.6); RBC Distribution Width SD 48.1 fl (35.1-43.9); Red Blood Count 4.96 M/mm3 (4.2-5.4); White Blood Count 7.0 K/mm3 (4.4-11.0)
[2025-06-30 18:20] LABS: Troponin T High Sensitivity 16 ng/L (<=14)
[2025-06-30 18:29] LABS: Anion Gap 14 (5-15); BUN 15 mg/dL (4-19); BUN/Creat Ratio 16.1 RATIO (10-20); Calcium,Total 9.3 mg/dL (7.6-11.0); Carbon Dioxide 22.3 mmol/L (21.0-32.0); Chloride 101 mmol/L (98-108); Estimated Creatinine Clearance 45.17 ml/min (50-250); Glucose 100 mg/dL (70-99); Potassium 3.9 mmol/L (3.3-5.1)
[2025-06-30 20:20] LABS: Mucous, Urine 0 SEEN /hpf (<or=2+); Red Blood Cells-Urine 0 SEEN /hpf (0-5)
[2025-06-30 20:59] LABS: Troponin T High Sens 2 HR 165 ng/L (<=14)
--- NOTE | 2025-06-30 21:02 | EKG12_ITS ---
Test Reason : DYSRHYTHMIA Blood Pressure : */* mmHG Vent. Rate : 57 BPM Atrial Rate : 57 BPM P-R Int : 198 ms QRS Dur : 120 ms QT Int : 454 ms P-R-T Axes : 67 -46 12 degrees QTcB Int : 441 ms Sinus bradycardia Left anterior fascicular block Minimal voltage criteria for LVH, may be normal variant ( [place] product ) Abnormal ECG Confirmed by ERIN ALLEN ([id number]), primer expeditor and drier GRIFFIN MARIE ([id number]) on 07/04/2025 8:06:45 AM Referred By: KLAUDIA Confirmed By: ERIN ALLEN
[2025-06-30 21:08] LABS: Color, Urine Straw (Yellow); Glucose, Dipstick Normal (Normal); Ketone-Dipstick Negative (Negative); Leukocyte Esterase-Dipstick Negative /ul (Negative); Nitrite-Dipstick Negative (Negative); Occult Blood-Urine Negative /ul (Negative); Protein-Dipstick Negative (Negative); Specific Gravity, Urine 1.010 (1.002-1.030); Urine Bilirubin Dipstick Negative (Negative)
--- NOTE | 2025-06-30 21:33 | PCM.HP.STD ---
HPI - General General Date of Admission: 06/30/25 Date of Service: 06/30/25 Chief Complaint: Headache, malaise, variation in HR, elevated BP at home. HPI Narrative The patient is an 84 y/o F w/ PMHx: PAF, CKD stage II per GFR trending, HTN, HLD, Obesity who presents to the [facility] ED on 06/30/2025 with history of general malaise and fatigue as well as a dull globalized headache all day with self evaluation of her vital signs throughout the day noting in the afternoon that her blood pressure vacillated up to 210/100 and her heart rate was ranging from 50-100 with concern for possible recurrent A-fib prompting eventual ED evaluation to be cautious. She denied any recent chest discomfort, dyspnea, severe palpitations, lightheadedness or near syncopal type sensation. She notes she has been compliant with her Eliquis and metoprolol with last dosage 5:30 PM prior to ED presentation. She does report that she previously had been on diltiazem and digoxin but these were eventually discontinued and she is only on Eliquis and metoprolol for her PAF history. She does report previous cardioversion requirement. Despite patient's thoughts on her medications most recent cardiology visit noted 06/01/2025 with recommendation of stopping digoxin, initiated on amiodarone and continuation of diltiazem and metoprolol. Patient notes the headache is mild but constant, 2-3 out of 10 in severity with no light or sound sensitivity. Workup in the ED included T97.4, heart rate 80, BP 182/88, respiratory rate 18, 96% on room air with heart rate vacillating down to as low as 55 in the ED with most recent repeat vitals T97.4, heart rate 65, BP 151/70, respiratory rate 18, 97% on room air, CBC with WC 7, hemoglobin 15.1, MCV 91.7, platelet 214 without marked shift, BMP with BUN/creatinine 15/0.91, GFR 62, glucose 100, initial troponin 16 with repeat delta 165, urinalysis unremarkable, chest x-ray with no acute cardiopulmonary findings, EKG with sinus rhythm with left anterior fascicular block with no acute evidence of ischemia. In the ED patient ministered Tylenol 650 mg p.o. x 1 in addition to full-strength aspirin therapy. [facility] Medical History PAF (paroxysmal atrial fibrillation) Palpitations Cardiac murmur Vitamin D deficiency Atrial fibrillation with RVR Obesity GERD (gastroesophageal reflux disease) CKD (chronic kidney disease), stage III HLD (hyperlipidemia) Hypertension Cataracts, bilateral Home Medications ?Medication ?Instructions ?Recorded ?Last Taken ?Type simvastatin 10 mg tablet 10 mg PO QHS hyperlipidemia 06/24/16 06/30/25 17:00 History 10 mg pantoprazole 40 mg tablet,delayed 40 mg PO DAILY ulcer prevention 12/30/24 06/30/25 17:00 History release (Protonix) 40 mg apixaban 5 mg tablet (Eliquis) 5 mg PO BID #60 tabs 12/31/24 06/30/25 17:00 Rx 5 mg sennosides 8.6 mg tablet (Senokot) 8.6 mg PO DAILY constipation 12/31/24 06/30/25 17:00 History 8.6 mg metoprolol tartrate 25 mg tablet 25 mg PO BID #180 tabs 03/21/25 06/30/25 17:00 Rx 25 mg amiodarone 200 mg tablet 200 mg PO QDAY #30 tabs 06/01/25 06/30/25 08:00 Rx 200 mg potassium chloride 10 mEq 10 meq PO DAILY with the lasix 06/01/25 06/30/25 17:00 History tablet,extended release 10 mEq furosemide 20 mg tablet (Lasix) 20 mg PO DAILY edema 06/30/25 06/30/25 17:00 History 20 mg Allergy/AdvReac Type Severity Reaction Status Date / Time morphine Allergy Anaphylaxis Verified 06/30/25 17:10 niacin Allergy Rash Verified 06/30/25 17:10 procaine HCl (From Novocain) Allergy Anaphylaxis Verified 06/30/25 17:10 tetracycline Allergy Rash Verified 06/30/25 17:10 Family History Father Cancer Hypertension Respiratory disease Mother Diabetes Epilepsy Heart disease Brother CVA (cerebral vascular accident) Surgical History History of cataract surgery History of appendectomy History of total hysterectomy Social History household members: none Smoking Status: Never smoker alcohol intake: never substance use type: does not use additional social history: Does Take Aspirin Does Not Take Ibuprofen ROS ROS Narrative Admission Review of Systems: CONSTITUTIONAL: No weight loss, fever, chills, + weakness or fatigue. HEENT: + Headache. Eyes: No visual loss, blurred vision, double vision or yellow sclerae. Ears, Nose, Throat: No hearing loss, sneezing, congestion, runny nose or sore throat. SKIN: No rash or itching, lesions, wounds. CARDIOVASCULAR: + Heart rate vacillation. No chest pain, chest pressure or chest discomfort, palpitations, edema, orthopnea, syncopal events. RESPIRATORY: No shortness of breath, cough or sputum, wheezing, hemoptysis. GASTROINTESTINAL: No anorexia, nausea, vomiting or diarrhea, abdominal pain, melena, BRBPR. GENITOURINARY: No dysuria, frequency, urgency or retention. NEUROLOGICAL: + Headache. Dizziness, syncope, paralysis, ataxia, numbness or tingling in the extremities, focal weakness, change in bowel or bladder control, seizure. MUSCULOSKELETAL: + muscle, back pain, joint pain or stiffness. HEMATOLOGIC: No anemia. + Easy bleeding/bruising. LYMPHATICS: No enlarged nodes. No history of splenectomy. PSYCHIATRIC: No history of depression or anxiety. ENDOCRINOLOGIC: No reports of sweating, cold or heat intolerance. No polyuria or polydipsia. ALLERGIES: + History of anaphylaxis. Vital Signs Vital Signs Vital Signs: 06/30/25 17:08 06/30/25 18:08 06/30/25 19:00 Temperature 97.4 F L Temperature Source Oral Pulse Rate 80 58 L 57 L Respiratory Rate 18 14 18 Blood Pressure 182/88 H 157/77 H 162/84 H Blood Pressure Mean 119 103 110 Pulse Ox 96 98 98 Oxygen Delivery Method Room Air Room Air 06/30/25 20:00 06/30/25 21:00 06/30/25 21:16 Temperature Temperature Source Pulse Rate 55 L 55 L 59 L Respiratory Rate 18 12 14 Blood Pressure 151/70 H Blood Pressure Mean 97 Pulse Ox 96 98 97 Oxygen Delivery Method Room Air Room Air Room Air 06/30/25 21:20 Temperature 97.4 F L Temperature Source Pulse Rate 65 Respiratory Rate 18 Blood Pressure 151/70 H Blood Pressure Mean 97 Pulse Ox 97 Oxygen Delivery Method Weight Weight: 177 lb 0.499 oz Body Mass Index (BMI) 32.3 Physical Exam Narrative Physical Examination: General: Awake, alert, oriented x 3 and cooperative, seated upright in the ED bed in no apparent distress. Skin: Normal color, normal turgor, no icterus, no cyanosis except occasional stage ecchymoses, abrasion. HEENT: AT/NC, EOMI, PERRLA, MMM, no carotid bruits or JVD noted. Lungs: Mildly diminished, greater bases, poor effort, no rales, ronchi or wheezing. Heart: Regular rate and rhythm; no gallop, rub audible, + SM. Abdomen: Soft, obese, NTTP, ND, normal BS, no appreciated HSM. Extremities: No cyanosis, no clubbing, mild ankle to distal extremity not markedly pitting edema. Neurological: Patient awake, alert, oriented as noted cognitive function intact; pupils equally reactive to light and accommodation, cranial nerves grossly normal, moving all 4 extremities, no focal deficits, strength moderately to severely globally decreased secondary to acute presentation complaints. Psychiatric: Affect appears mildly flat, fatigued, no acute evidence of depressive or anxiety feelings. Results Lab / Micro Data 06/30/25 17:20 06/30/25 17:20 Labs: Laboratory Results - last 24 hr 06/30/25 17:20: WBC 7.0, RBC 4.96, Hgb 15.1 H, Hct 45.5, MCV 91.7, MCH 30.4, MCHC 33.2, RDW Std Deviation 48.1 H, RDW Coeff of Bob 14.3, Plt Count 214, MPV 10.6, Immature Gran % (Auto) 0.400, Neut % (Auto) 43.3 L, Lymph % (Auto) 45.5 H, [place] % (Auto) 8.5, Eos % (Auto) 1.6, Baso % (Auto) 0.7, Absolute Neuts (auto) 3.0, Absolute Lymphs (auto) 3.20, Nucleated RBC % 0, Sodium 137, Potassium 3.9, Chloride 101, Carbon Dioxide 22.3, Anion Gap 14, BUN 15, Creatinine 0.91, Estim Creat Clear Calc 45.17 L, Est GFR (MDRD) Non-Af 62, BUN/Creatinine Ratio 16.1, Glucose 100 H, Calcium 9.3, Troponin T High Sens 16 H D 06/30/25 20:00: Troponin T Hi Sens 2 Hr 165 H* 06/30/25 20:12: Urine Color Straw, Urine Clarity Clear, Urine pH 6.5, Ur Specific [place] 1.010, Urine Protein Negative, Urine Glucose (UA) Normal, Urine Ketones Negative, Urine Occult Blood Negative, Urine Nitrite Negative, Urine Bilirubin Negative, Urine Urobilinogen Normal, Ur Leukocyte Esterase Negative Imaging Radiology Impression Chest X-Ray 06/30/25 17:45 IMPRESSION: NO ACUTE FINDINGS. Reading Location: [id number] Assessment & Plan Assessment/Plan (1) Non-ST elevation SD (NSTEMI): PLAN: Plan The patient is an 84 y/o F w/ PMHx: PAF, CKD stage II per GFR trending, HTN, HLD, Obesity who presents to the [facility] ED on 06/30/2025 with history of general malaise and fatigue as well as a dull globalized headache all day with self evaluation of her vital signs throughout the day noting in the afternoon that her blood pressure vacillated up to 210/100 and her heart rate was ranging from 50-100 with concern for possible recurrent A-fib prompting eventual ED evaluation to be cautious. #1. Acute NSTEMI: EKG in ED w/ sinus rhythm with left anterior fascicular block with no acute evidence of ischemia, CXR w/ no acute cardiopulmonary finding. Trop elevated, initial 16 with repeat delta elevated to 165. Will admit to PCU, maintain on a monitored bed, continue serial cardiac enzymes and EKGs. Obtain magnesium level upon admission. Holding Eliquis with last dose 06/30/2025 approximately 5:30 PM for possible catheterization needs, may consider transition to heparin drip at next dose due pending cardiac enzyme trending and cardiology preference. Continue medical management with aspirin, statin, metoprolol, not on KARRIE inhibitor/ARB. AM FLP. ECHO requested. Cardiology consulted for potential consideration cardiac catheterization. Maintain NPO after midnight with digits as hydration in preparation for possible catheterization. ASA, NG, morphine. #2. Chronic Kidney Disease Stage II per GFR trend: Admission BUN/Cr 15/0.91, GFR 62 although chart does report stage III but from review of GFR trending consistent with stage II, baseline renal function primarily 0.7-0.9, repeat BMP in AM. #3. Hypertension: Continue home regimen including Lasix, metoprolol, diltiazem with hold parameters as needed, PRN hydralazine. #4. Hyperlipidemia: Continue home statin regimen. AM FLP. #5. PAF: Will continue patient home amiodarone, metoprolol and diltiazem regimen, holding Eliquis in case of cardiac catheterization consideration, may consider transition to heparin drip at next dose due if appropriate. #6. Obesity: Weight loss and lifestyle changes encouraged. #7. GERD: Will continue patient on PPI. #8. DVT prophylaxis: Recent nightly dose of home Eliquis regimen, holding in case of catheterization needed, SCDs. #9. CODE status: Patient HCPOA are her two children and living will is currently in place. Discussed CODE status at length including difference between FULL code, DNR-CCA and DNR-CC status. Following discussions about the differences in these status, requested DNR-CCA, no intubation with confirmation of no intubation status including in the situation where there was only respiratory component. Advanced Care Planning Face to Face Time: 16 minutes. Charges/Coding Visit Charges Inpatient E&M: 46346 Init Hosp L3 Procedures Hospitalists Procedures: 81998 Advncd Care Plan 30 Min
--- NOTE | 2025-06-30 21:38 | EKG12_ITS ---
Test Reason : ELEVATED TROPONINS Blood Pressure : */* mmHG Vent. Rate : 59 BPM Atrial Rate : 59 BPM P-R Int : 188 ms QRS Dur : 120 ms QT Int : 458 ms P-R-T Axes : 64 -49 20 degrees QTcB Int : 453 ms Sinus bradycardia Left anterior fascicular block Minimal voltage criteria for LVH, may be normal variant ( Riki product ) Abnormal ECG When compared with ECG of 30-Jun-2025 21:12, MANUAL COMPARISON REQUIRED DATA IS UNCONFIRMED Confirmed by ERIN ALLEN ([id number]), multimedia editor KEYSHA RICCI ([id number]) on 07/04/2025 7:40:04 AM Referred By: MARISSA Confirmed By: ERIN ALLEN
--- OUTSIDE RECORDS SUMMARY | 2025-06-30 21:55 | XMS RPT_ITS | CCD ---
Author Organization [facility] CliniSyva Care Team Providers Care Market Editor Name Role Phone Dr. Jacquie Coleman Primary [...] Sravanthi CAN, Dr. Elisabet Gonzalez [facility]ending [facility] DO Other Provider Dr. [...] Provider Dr. Omid Foley DO [facility] Quintanilla [facility]ending [facility], Dr. Quintanilla Emergency Provider Brittney Rinaldi Attending Provider [phone] [place] Primary Care Provider [facility], [place] Primary [facility] Unavailable [facility], Jacquie Attending Unavailable Omid Foley Attending Unavailable Mied, [place] Primary Care Unavailable Koram, Elisabet Lisa Attending Unavailable Paed, [place] Primary Care Unavailable WhiteEdda L Consulting Unavailable Klusty-TamicaDwight escobar Referring Unavailabl e Edda Langston L Admitting Unavailable Robert Kingsley Consulting Unavailable Koram, Elisabet Lisa Consulting Unavailable Edda Langston Attending Unavailable [facility], [place] [facility] Unavailable Miedel, Jacquie Referring Unavailable Brittney Rinaldi Attending Unavail able Miedel, [place] Primary Care Unavailable Miedel, Jacquie Referring Unavailable Brittney Rinaldi Attending Unavail able Paed, [place] Primary Care Unavailable Miedel, Jacquie Referring Unavailable Brittney Rinaldi Attending Unavail able Paedel, [place] Primary Care Unavailable Miedel, Jacquie Referring Unavailable Jean, Jozef Attending Unavailable Mied, [place] Primary Care Unavailable Jean, Jozef Attending Unavailable Mied, [place] Primary Care Unavailable Jean, [place] Attending Unavailable Jean, [place] Consulting Unavailable Jean, [place] Referring Unavailable Mied, Jacquie Primary Care Unavailable Klusty-Dwight Davey Attending Unavailabl e Miedel, [place] Primary Care Unavailable Klusty-Dwight Davey Attending Unavailabl e Mied, [place] Primary Care Unavailable Dwight Patricia Attending Unavailabl e Mied, [place] Primary Care Unavailable Jean, Jozef Attending Unavailable Jean, Jozef Referring Unavailable [facility], Jacquie Primary Care Unavailable WhiteEdda L Consulting Unavailable Edda Langston L Admitting Unavailable Dwight Patricia Referring UnavailElisabet Morales Attending Unavailable Robert Kingsley Consulting Unavailable Paed, Jacquie Primary Care Unavailable Miedel, Jacquie Referring Unavailable Paed, Jacquie Attending Unavailable Pajahairael Jacquie Attending Unavailable Paed, Jacquie Primary Care Unavailable Allergies Allergy Classification Reported Allergen(s) Allergy Type Date of Onset Reaction(s) Facility (13 sources) Morphine Drug Allergy 1 Anaphylaxis [facility] (13 sources) Niacin Drug Allergy 1 [facility] (14 sources) Procaine; Translations: [procaine HCl] Drug Allergy 1 Anaphylaxis [facility] (13 sources) Tetracycline Drug Allergy 1 Unknown, [facility] (4 sources) Omeprazole Drug Allergy 5 Diarrhea [facility] (1 source) Morphine Drug Allergy 5 [facility] Repository (1 source) Niacin Drug Allergy 5 [facility] Repository (1 source) Omeprazole Drug Allergy 5 [facility] Repository (1 source) Tetracycline Drug Allergy 5 [facility] Repository Medications Current Medications Medication Drug Class(es) Dates Sig (Normalized) Sig (Original) amiodarone hydrochloride 200 mg oral tablet (2 sources) Antiarrhythmic Start: 06-01-2025 take 1 tablet by mouth once daily Amiodarone 200 mg tablet Active 200 mg PO daily 30 June 01, 2025 12:00am apixaban 5 mg oral tablet (6 sources) Factor Xa Inhibitor Start: 12-31-2024 take 1 tablet by mouth twice daily Apixaban (Eliquis) 5 mg Tablet Active 5 mg PO TWICE A DAY 60 2 December 31, 2024 1:00am 24 hr dilTIAZem hydrochloride 120 mg extended release oral capsule (13 sources) Calcium Channel Shadi Start: 05-13-2025 take 1 capsule by mouth twice daily Diltiazem Hcl 120 mg capsule,extended release 24hr Active 120 mg PO TWICE A DAY 0 0 May 13, 2025 11:50am Start: 03-25-2025 End: 05-13-2025 take 1 capsule by mouth once daily Diltiazem Hcl 120 mg capsule,extended release 24hr Discontinued 120 mg PO daily 90 March 25, 2025 9:50am May 13, 2025 11:50am Start: 12-31-2024 End: 03-25-2025 take 1 capsule by mouth twice daily Diltiazem Hcl 120 mg Capsule,Extended Release 24hr Discontinued 120 mg PO TWICE A DAY 60 2 December 31, 2024 1:00am March 25, 2025 9:52am furosemide 20 mg oral tablet (10 sources) Loop Diuretic Start: 12-31-2024 End: 03-25-2025 take 1 tablet by mouth once daily as needed for edema Furosemide (Lasix) 20 mg tablet Active 20 mg PO DAILY as needed for edema 30 March 25, 2025 9:50am metoprolol tartrate 25 mg oral tablet (8 sources) beta-Adrenergic Shadi Start: 03-18-2025 End: 03-21-2025 take 1 tablet by mouth twice daily Metoprolol Tartrate 25 mg tablet Active 25 mg PO TWICE A DAY 180 3 March 21, 2025 8:16am pantoprazole 40 mg delayed release oral tablet (14 sources) Proton Pump Inhibitor Start: 12-30-2024 take [...] 19, 2023 1:00am December 30, 2024 10:35pm Sennosides (2 sources) Start: 01-25-2020 take 2 tablets by mouth once daily Sennosides Active 2 TABLET PO DAILY January 25, 2020 12:00am Sennosides (Senokot) 8.6 mg tablet (6 sources) Start: 12-31-2024 take 1 tablet by mouth once daily Sennosides (Senokot) 8.6 mg tablet Active 8.6 mg PO DAILY December 31, 2024 1:00am sennosides, group home 8.6 mg oral tablet (5 sources) Start: 01-25-2020 take 2 tablets by mouth once daily Sennosides Active 2 TABLET PO DAILY January 25, 2020 1:00am simvastatin 10 mg oral tablet (13 sources) HMG-CoA Reductase Inhibitor Start: 06-24-2016 take 1 tablet by mouth at bedtime Simvastatin 10 MG tablet Active 10 mg PO AT BEDTIME June 24, 2016 12:00am Completed/Discontinued Medications Medication Drug Class(es) Dates Sig (Normalized) Sig (Original) amLODIPine 10 mg oral tablet (13 sources) Dihydropyridine Calcium Channel Shadi Start: 06-24-2016 End: 12-31-2024 take 1 tablet by mouth once daily Amlodipine 10 MG tablet Discontinued 10 mg PO DAILY June 24, 2016 12:00am December 31, 2024 6:20pm aspirin 81 mg delayed release oral tablet (19 sources) Platelet Aggregation Inhibitor, Nonsteroidal Anti-inflammatory Drug [...] mg / hydroCHLOROthiazide 6.25 mg oral tablet (13 sources) Thiazide Diuretic, beta-Adrenergic Shadi Start: 01-25-2020 End: 12-31-2024 Bisoprolol-Hydrochlorothiazi de 1 EACH tablet Discontinued 1 {tbl} PO DAILY January 25, 2020 1:00am December 31, 2024 6:20pm heart Start: 01-25-2020 take 1 tablet by kenneth th once daily Bisoprolol-Hydrochlorothiazide Active 1 TABLET PO DAILY January 25, 2020 12:00am cephalexin 500 mg oral capsule (12 sources) Cephalosporin Antibacterial Start: 07-29-2022 End: 08-08-2022 take 1 capsule by mouth every twelve hours Cephalexin 500 mg capsule Discontinued 500 mg PO Q12H 20 10 0 July 29, 2022 12:00am August 07, 2022 12:00am August 08, 2022 12:03am digoxin 0.125 mg oral tablet (3 sources) Cardiac Glycoside Start: 05-30-2025 End: 06-01-2025 take 1 tablet by mouth once daily Digoxin 125 mcg (0.125 mg) tablet Discontinued 125 ug PO DAILY 30 30 0 May 30, 2025 12:00am June 01, 2025 4:06pm imiquimod 50 mg/ml topical cream (13 sources) Start: 06-12-2021 End: 07-24-2021 Imiquimod (Aldara) 5 % cream in packet Discontinued 1 NMA TOPICAL 5 times per week 30 42 0 June 12, 2021 12:00am July 23, 2021 12:00am July 24, 2021 12:01am Apply at night Friday-Friday, wipe off in the morning. Use for 6 weeks. naproxen sodium 220 mg oral tablet (13 sources) Nonsteroidal Anti-inflammatory Drug Start: 01-25-2020 End: 12-30-2024 take 1 tablet by mouth twice daily Naproxen Sodium 220 MG tablet Discontinued 220 mg PO TWICE A DAY January 25, 2020 1:00am December 30, 2024 10:35pm pain omeprazole 40 mg delayed release oral capsule (13 sources) Proton Pump Inhibitor Start: 01-25-2020 End: 12-30-2024 take 1 capsule by mouth once daily Omeprazole 40 MG capsule,delayed release(DR/EC) Discontinued 40 mg PO DAILY 30 0 January 25, 2020 1:00am December 30, 2024 10:35pm phenazopyridine hydrochloride 100 mg oral tablet (12 sources) Start: 07-29-2022 End: 11-19-2023 take 1 tablet by mouth three times daily at mealtime for pain Phenazopyridine (Pyridium) 100 mg tablet Discontinued 100 mg PO THREE TIMES A DAY as needed for pain 7 0 July 29, 2022 12:00am November 19, 2023 6:25pm administer with a full glass of water after each meal potassium chloride 10 meq extended release oral tablet (12 sources) Start: 12-31-2024 End: 06-01-2025 take 1 tablet by mouth once daily as needed Potassium Chloride 10 mEq tablet extended release Discontinued 10 meq PO DAILY as needed for with the lasix 30 March 25, 2025 9:51am June 01, 2025 3:30pm Sennosides 1 TABLET tablet (6 sources) Start: 01-25-2020 End: 12-30-2024 Sennosides 1 TABLET tablet Discontinued 2 {tbl} PO DAILY January 25, 2020 1:00am December 30, 2024 10:34pm constipation Start: 01-25-2020 End: 12-30-2024 Sennosides 1 TABLET tablet D iscontinued 2 {tbl} PO DAILY January 25, 2020 1:00am December 30, 2024 10:34pm Problems Active Problems Problem Classification Problem Date Documented Da te Episodic/Chronic Acute posthemorrhagic anemia (8 sources) Acute posthemorrhagic anemia; Translations: [Acute posthemorrhagic anemia] 11-19-2023 Episodic Cardiac dysrhythmias (20 sources) Atrial fibrillation with rapid ventricular response; Translations: [Unspecified atrial fibrillation] Onset: 5 01-13-2025 Chronic Cardiac dysrhythmias (11 sources) Palpitations; Translations: [Palpitations] Onset: 5 01-13-2025 Episodic Cardiac dysrhythmias (2 sources) Cardiac dysrhythmias Cataract (6 sources) Bilateral cataracts; Translations: [Unspecified cataract] 01-13-2025 Chronic Chronic kidney disease (6 sources) Chronic kidney disease stage 3; Translations: [Stage 3 chronic kidney disease] 01-13-2025 Chronic Coronary atherosclerosis and other heart disease (2 sources) Atherosclerotic heart disease of [place] coronary artery without angina pectoris; Translations: [Atherosclerotic heart disease of [place] coronary artery without angina pectoris] Onset: Chronic Disorders of lipid metabolism (20 sources) Hypercholesterolemia; Translations: [Pure hypercholesterolemia, unspecified] Onset: 5 01-25-2020 Chronic Esophageal disorders (13 sources) Gastroesophageal reflux disease; Translations: [Gastro-esophageal reflux disease without esophagitis] 01-26-2020 Chronic Essential hypertension (20 sources) Hypertensive disorder; Translations: [Essential (primary) hypertension] Onset: 5 01-25-2020 Chronic Gastrointestinal hemorrhage (8 sources) Acute upper gastrointestinal hemorrhage; Translations: [Gastrointestinal hemorrhage, unspecified] 11-19-2023 Episodic Hypertension with complications and secondary hypertension [...] cheek by mandibular angle Nonspecific chest pain (13 sources) Finding of region of thorax; Translations: [Other chest pain] 01-26-2020 Episodic Nutritional deficiencies (6 sources) Vitamin D deficiency; Translations: [Vitamin D deficiency, unspecified] 01-13-2025 Chronic Other aftercare (5 sources) Drug therapy finding; Translations: [termination clerk (current) use of anticoagulants] 03-17-2025 Episodic Other circulatory disease (4 sources) H/O: atrial fibrillation; Translations: [Personal history of other diseases of the circulatory system] 03-26-2025 Episodic Other circulatory disease (1 source) Personal history of other diseases of the circulatory system; Translations: [Personal history of other diseases of the circulatory system] Onset: 5 Episodic Other nutritional; endocrine; and metabolic disorders (6 sources) Obesity; Translations: [Obesity, unspecified] 01-13-2025 Chronic Other skin disorders (13 sources) Actinic keratosis; Translations: [Actinic keratosis] 08-09-2021 Episodic Comment on above: 1.5 cm actinic lesio n dorsal aspect left mid forearm Unclassified (5 sources) call to arrange follow up Urinary tract infections (14 sources) Cystitis; Translations: [Cystitis, unspecified without hematuria] Episodic Past or Other Problems Problem Classification Problem Date Documented Da te Episodic/Chronic Heart valve disorders (7 sources) Heart murmur; Translations: [Cardiac murmur, unspecified] Onset: 02-23-2025 01-13-2025 Episodic Results Test Name Value Interpretation Reference Range Facility Cardiology Visit Reporton Cardiology Visit Report [facility] [address] [place] [address] OFFICE VISIT Date of Service: 06/01/25 MR#: [id number] Acct: [id number] Name: AL LEWIS Rep #: [id number] : 1940 Provider: ART Keenan Age/Sex: 84/F [place] [facility] Status: Signed HPI HPI History of [...] demonstrating sinus bradycardia. She does have a [id number] score of at least 3 and was [...] not missed any doses of her Eliquis. We had decreased her cardizem d/t low HRs at that visit. She has been to the ER for 2 cardioversions since then. Pt is symptomatic with a sharp WATSON when she is in Afib. Her HR is in the 120-150 when she is in Afib. Intake Vital Signs 05/30/25 10:56 06/01/25 15:26 06/01/25 15:36 Height 5 ft 2 in 5 ft 2 in Weight: 172 lb BMI 31.4 BP 165/75 H 160/76 H Blood Pressure Location Lt brachial Lt brachial Position Sitting Sitting Respiration 16 Pulse 74 69 Pulse Source Monitor Monitor Pulse Oximetry (%) 97 Oxygen Delivery Method room air Intake Visit Reasons: AFIB (CONSULT WITH ) Smt Operator Required: No Accompanied by: Granddaughter Is patient in pain?: No Allergies morphine Allergy (Verified 06/01/25 15:28) Anaphylaxis niacin Allergy (Verified 06/01/25 15:28) Rash procaine HCl (From Novocain) Allergy (Verified 06/01/25 15:28) Anaphylaxis tetracycline Allergy (Verified 06/01/25 15:28) Rash Medications ???Medication ???Instructions ???Recorded ???Confirmed ???Type simvastatin 10 mg tablet 10 mg PO QHS 06/24/16 06/01/25 His tory pantoprazole 40 mg tablet,delayed 40 mg PO DAILY 12/30/24 06/01/25 History release (Protonix) apixaban 5 mg tablet (Eliquis) 5 mg PO BID #60 tabs 12/31/2408/18 Rx sennosides 8.6 mg tablet (Senokot) 8.6 mg PO DAILY 12/31/24 5 History metoprolol tartrate 25 mg tablet 25 mg PO BID #180 tabs 03/21/25 Rx furosemide 20 mg tablet (Lasix) 20 mg PO DAILY PRN edema #30 tabs 03/25/25 06/01/25 Rx diltiazem HCl 120 mg 120 mg PO BID #0 caps 05/13/2508/18 Rx capsule,extended release 24 hr amiodarone 200 mg tablet 200 mg PO QDAY #30 tabs 06/01/25 0 06/01/25 Rx potassium chloride 10 mEq 10 meq PO DAILY with the lasix 08/1806/01/25 History tablet,extended release Ejection fraction %: 70 Have you fallen in the past year?: No PFSH Medical History (Updated 06/01/25 @ 16:15 by Brittney CORDOVA, PA) PAF (paroxysmal atrial fibrillation) Palpitations Cardiac murmur Vitamin D deficiency Atrial [...] Ibuprofen ROS Const Const: Positive for headache(s) (intermittent); Negative for fatigue or weakness Eyes Eyes: Negative for change in vision ENT ENT: Positive for headache(s) (intermittent); Negative for dizziness or balance problems Cardio Chest Pain: Yes (intermittent twinge under left breast) Location: left chest Duration: brief Palpitations: No Edema: Bilateral (improved after lasix restarted) Resp Respiratory: Negative for SOB with activity, SOB at rest or SOB or (more content not included)... [facility] 12 Lead EKGon 05-30-2025 12 Lead EKG [facility] Cardi[facility] [address] [place] [address] 12 Lead EKG 05/30/25 1458 MR#: [id number] Acct: [id number] Name: AL LEWIS Rep #: [id number] : 1940 84 From: Jozef Pena MD Attending Dr: Status: DEP ER Ordering Dr: Dwight Patricia DO Date: 5 Location: ED Sex: F C Admitted: Test Reason : REPEAT X2 Blood Pressure : */* mmHG Vent. Rate : 62 BPM Atrial Rate : 62 BPM P-R Int : 198 ms QRS Dur : 132 ms QT Int : 458 ms P-R-T Axes : 64 -58 26 degrees QTcB Int : 464 ms Sinus rhythm with Premature supraventricular complexes and with occasional Premature ventricular complexes Right bundle branch block Left anterior fascicular block Bifascicular block Abnormal ECG Confirmed by JOZEF PENA MD ([id number]), state editor GRIFFIN MARIE ([id number]) on 05/31/2025 8:25:11 AM Referred By: Confirmed By: JOZEF PENA MD 05/31/25 0825 Date Jozef Pena MD CC: Dr. Dwight Patricia DO; Dr. Jacquie Coleman MD Signed [facility] 12 Lead EKG [facility] [address] [place] [address] 12 Lead EKG 05/30/25 1106 MR#: [id number] Acct: [id number] Name: AL LEWIS Rep #: [id number] : 1940 84 From: Jozef Pena MD Attending Dr: Status: DEP ER Ordering Dr: Dwight Patricia DO Date: 5 Location: ED Sex: F C Admitted: Test Reason : CP Blood Pressure : */* mmHG Vent. Rate : 135 BPM Atrial Rate : 133 BPM P-R Int : * ms QRS Dur : 128 ms QT Int : 330 ms P-R-T Axes : * -74 47 degrees QTcB Int : 495 ms Atrial fibrillation Right bundle branch block Left anterior fascicular block Bifascicular block Abnormal ECG Confirmed by JEAN CAN, JOZEF ([id number]), state editor GRIFFIN MARIE ([id number]) on 05/31/2025 8:24:42 AM Referred By: AK/TB Confirmed By: JOZEF PENA MD 05/31/25823 Date Jozef Pena MD CC: Dr. Dwight Patricia DO; Dr. Jacquie Coleman MD Signed Normal [facility] 12 Lead EKG [facility] [address] [place] [address] 12 Lead EKG 05/30/25 1357 MR#: [id number] Acct: [id number] Name: AL LEWIS Rep #: [id number] : 1940 84 From: Jozef Pena MD Attending Dr: Status: DEP ER Ordering Dr: Dwight Patricia DO Date: 5 Location: ED Sex: F C Admitted: Test Reason : REPEAT Blood Pressure : */* mmHG Vent. Rate : 118 BPM Atrial Rate : * BPM P-R Int : * ms QRS Dur : 128 ms QT Int : 354 ms P-R-T Axes : * -71 43 degrees QTcB Int : 496 ms Atrial fibrillation with rapid ventricular response Left axis deviation Right bundle branch block Abnormal ECG Confirmed by JOZEF PENA MD ([id number]), state editor GRIFFIN MARIE ([id number]) on 05/31/2025 8:24:52 AM Referred By: Confirmed By: JOZEF PENA MD 05/31/25823 Date Jozef Pena MD CC: Dr. Dwight Patricia DO; Dr. Jacquie Coleman MD Signed Normal [facility] Absolute lymphocyte countOrd ered By: ED PROVIDER on 05-30-2025 Lymphocytes Auto (Unsp spec) [#/Vol] 2.15 10*3/uL 0.83-4.51 [facility] Absolute neutrophil countOrd ered By: ED PROVIDER on 05-30-2025 Neutrophils (Bld) [#/Vol] 4.6 10*3/uL 2.0-7.7 [facility] Anion gap in Serum or Plasma Ordered By: ED PROVIDER on 05-30-2025 Anion gap [Moles/Vol] 13 mmol/L 5-15 [facility] Automated lymphocyte count a s percentage of total leukocytesOrdered By: ED PROVIDER on 05-30-2025 Lymphocytes/100 WBC Auto (Unsp spec) 28.9 % 19-41 [facility] BUN/creatinine ratioOrdered By: ED PROVIDER on 05-30-2025 Urea nitrogen/Creatinine [Mass ratio] 14.2 mg/mg 10- [facility] Basic Metabolic Profile (BMP )on 05-30-2025 BUN/CRE 14.2 RATIO Normal 09-12 [facility] Comment on above: Performed By: #### L 499.0042 #### [facility] Laboratory [address] [place], [address] Calcium [Mass/Vol] 9.6 mg/dL Normal 7.6-11.0 [facility] Comment on above: Performed By: #### L 499.0042 #### [facility] Laboratory [address] [place], [address] Chloride [Moles/Vol] 105 mmol/L Normal 98-108 [facility] Comment on above: Performed By: #### L 499.0042 #### [facility] Laboratory [address] [place], [address] CO2 [Moles/Vol] 23.0 mmol/L Normal 21.0-32.0 [facility] Comment on above: Performed By: #### L 499.0042 #### [facility] [address] [place], [address] Creatinine [Mass/Vol] 0.82 mg/dL Normal 0.70-1.20 [facility] Comment on above: Performed By: #### L 499.0042 #### [facility] [address] [place], [address] ECRCL 48.58 ml/min Low 50-250 [facility] Comment on above: Performed By: #### L 499.0042 #### [facility] [address] [place], [address] GAP 13 Normal 5-15 [facility] Comment on above: Performed By: #### L 499.0042 #### [facility] [address] [place], [address] GFR/1.73 sq M.predicted among non-blacks MDRD (S/P/Bld) [Vol rate/Area] 71 mL/min/{1.73_m2} Normal >60 [facility] Comment on above: Result Comment: mL/m in/1.73m2 CKD-EPI Creatinine Equation (2020) Performed By: #### L 499.0042 #### [facility] [address] [place], [address] Glucose [Mass/Vol] 114 mg/dL High 70-99 [facility] Comment on above: Performed By: #### L 499.0042 #### [facility] [address] [place], [address] Potassium [Moles/Vol] 4.1 mmol/L Normal 3.3-5.1 [facility] Comment on above: Performed By: #### L 499.0042 #### [facility] [address] [place], [address] Sodium [Moles/Vol] 142 mmol/L Normal 133-145 [facility] Comment on above: Performed By: #### L 499.0042 #### [facility] [address] [place], [address] Urea nitrogen [Mass/Vol] 12 mg/dL Normal 4-19 [facility] Comment on above: Performed By: #### L 499.0042 #### [facility] [address] [place], [address] Basophil percentageOrdered B y: ED PROVIDER on 05-30-2025 Basophils/100 WBC (Bld) 0.7 % 0-1 [facility] CBC W/Diff, Automatedon Absolute Lymph 2.15 X10 3/uL Normal 0.83-4.51 [facility] Comment on above: Performed By: #### L 499.0042 #### [facility] [address] [place], [address] Absolute Neut 4.6 X10 3/uL Normal 2.0-7.7 [facility] Comment on above: Performed By: #### L [id number] #### [facility] [address] [place], [address] Basophils/100 WBC (Bld) 0.7 % Normal 0-1 [facility] Comment on above: Performed By: #### L [id number] #### [facility] [address] [place], [address] Eosinophils/100 WBC (Bld) 0.7 % Normal 0-5 [facility] Comment on above: Performed By: #### L [id number] #### [facility] [address] [place], [address] Erythrocyte distribution width (RBC) [Ratio] 14.6 % Normal 11.6-14.6 [facility] Comment on above: Performed By: #### L 499.0042 #### [facility] [address], [address] Hematocrit (Bld) [Volume fraction] 45.9 % Normal 37-47 [facility] Comment on above: Performed By: #### L 499.0042 #### [facility] Laboratory [address] [place], [address] Hemoglobin (Bld) [Mass/Vol] 15.4 g/dL High 12.0-15.0 [facility] Comment on above: Performed By: #### L 499.0042 #### [facility] [address] [place], [address] IG% 0.400 Normal 0.0-0.9 [facility] Comment on above: Result Comment: IG% - Immature Granulocytes (promyelocytes, myelocytes and metamyelocytes) > 1% indicates that a LEFT SHIFT is Present. Performed By: #### L 499.0042 #### [facility] [address] [place], [address] Lymphocytes/100 WBC (Bld) 28.9 % Normal 19-41 [facility] Comment on above: Performed By: #### L [id number] #### [facility] [facility] [address], [address] MCH (RBC) [Entitic mass] 30.2 pg Normal 27.0-32.0 [facility] Comment on above: Performed By: #### L 499.0042 #### [facility] [address] [place], [address] MCHC (RBC) [Mass/Vol] 33.6 g/dL Normal 32-36 [facility] Comment on above: Performed By: #### L 499.0042 #### [facility] [address] [place], [address] MCV (RBC) [Entitic vol] 90.0 fL Normal 81-99 [facility] Comment on above: Performed By: #### L 499.0042 #### [facility] [address] [place], [address] Monocytes/100 WBC (Bld) 7.0 % Normal 0-10 [facility] Comment on above: Performed By: #### L 499.0042 #### [facility] [address] [place], [address] Neutrophils/100 WBC (Bld) 62.3 % Normal 47-70 [facility] Comment on above: Performed By: #### L 499.0042 #### [facility] [address] [place], [address] Nucleated RBC (Bld) [#/Vol] 0 10*3/uL Normal 0-5 [facility] Comment on above: Performed By: #### L 499.0042 #### [facility] [address] [place], [address] Platelet mean volume (Bld) [Entitic vol] 10.2 fL Normal 6.2-12.0 [facility] Comment on above: Performed By: #### L 499.0042 #### [facility] [address] [place], [address] Platelets (Bld) [#/Vol] 238 10*3/uL Normal 150-450 [facility] Comment on above: Performed By: #### L 499.0042 #### [facility] [address] [place], [address] RBC (Bld) [#/Vol] 5.10 10*6/uL Normal 4.2-5.4 [facility] Comment on above: Performed By: #### L 499.0042 #### [facility] [address] [place], [address] RDW SD 47.8 fl High 35.1-43.9 [facility] Comment on above: Performed By: #### L 499.0042 #### [facility] [address] [place], [address] WBC (Bld) [#/Vol] 7.4 10*3/uL Normal 4.4-11.0 [facility] Comment on above: Performed By: #### L 499.0042 #### [facility] [address] [place], [place], [id number] ([address] Carbon dioxide, total [Moles /volume] in Central venous bloodOrdered By: ED PROVIDER on 05-30-2025 CO2 [Moles/Vol] 23.0 mmol/L 21.0-32.0 [facility] Chest PA and Lateralon 05-30 Chest PA and Lateral [facility] Imaging Services [address] [place], [place] [address] ([address] Chest PA and Lateral MR#: [id number] Acct: [id number] Name: AL LEWIS Rep #: [id number] : 1940 F 84 From: Estrada Joe DO PCP: Dr. Jacquie Coleman MD Status: PRE ER Study: Chest PA and Lateral Date of Exam: 05/30/25 Exam# [id number] Ordering Dr: Provider,Ed P. PROCEDURE: CHEST PA AND LATERAL 05/30/2025 REASON FOR EXAM: CHEST PAIN TECHNIQUE: CHEST PA AND LATERAL COMPARISON: Chest radiographs May 05, 2025 FINDINGS: Hardware: None. Heart: Normal size. Mediastinum: Unremarkable contour Lungs: Clear Bones: No aggressive process RAD/Chest PA and Lateral IMPRESSION: Negative for acute process. No significant interval change. Reading [facility] CC: Dr. Jacquie Coleman MD; ED PHYSICIAN PROVIDER Hospitalist Medical Director: Signed Normal [facility] Chloride assayOrdered By: ED PROVIDER on 05-30-2025 Chloride [Moles/Vol] 105 mmol/L 98-108 [facility] Emergency Department Summary on 05-30-2025 Emergency Department Summary [facility] Medical Records Department [address] [place] [address] Emergency Department Summary 05/30/25 MR#: [id number] Acct: [id number] Name: AL LEWIS ANN Rep #: [id number] : 1940 84 From: Dwight Patricia DO PCP: Dr. Jacquie Coleman MD Status:DEP ER Location: ED HPI History of Present Illness Chief Complaint: Palpitations Narrative Narrative: Chief complaint and HPI: Palpitations. 84-year-old female with past medical history of paroxysmal atrial fibrillation on Eliquis requiring multiple electrocardioversion's, CKD, HLD, HTN presents for evaluation of palpitations. Patient has presented for the same complaint multiple times in our emergency department in which I have seen her. When she develops palpitations she is usually in A- fib with RVR. Patient was recently seen on 05/05/2025. At that time she had electrocardioversion with 200 J and converted to normal sinus rhythm. I had spoken to cardiology at that time who recommended increasing her metoprolol to 50 mg twice daily if she was not having low blood pressure. Patient was having low blood pressure at home therefore this was not changed. She was told to follow-up with cardiology. Patient states she called the cardiology office and never received any notification back. She talked to her primary care physician who increased her diltiazem to 120 mg twice daily. She is still on metoprolol 25 mg twice daily. She has not missed any doses of her Eliquis. Patient states her palpitations started this morning when she woke up. Noticed her heart rate was elevated. States she took all of her medication without improvement. Denies any chest pain, shortness of breath, bilateral lower extremity swelling or pain. Review of systems: See HPI Medications: As listed on the chart Allergies: As listed on the chart PFSH: Per chart Vital signs: As listed on the chart. Reviewed. Physical exam: Gen: A O x3, NAD Head: Normocephalic, atraumatic Eyes: No sclera icterus, conjunctiva clear ENT: Moist mucous membranes Neck: Trachea midline, No JVD CV: Tachycardic, irregular irregular rhythm, no murmurs, no peripheral edema Resp: Lungs CTA BL, no w/r/c GI: Abd soft, non-distended, non-tender, no r/r/g Musc: Full ROM, no deformity Skin: Warm, dry Neuro: Alert, oriented, grossly intact, sensation intact Psych: Cooperative, appropriate mood and affect [facility] Medical History Atrial fibrillation with RVR Cardiac murmur Cataracts, bilateral CKD (chronic kidney disease), stage III GERD (gastroesophageal reflux disease) HLD (hyperlipidemia) Hypertension Obesity Palpitations Vitamin D deficiency Home Medications ???Medication ???Instructions ???Recorded ???Last Taken ???Type simvastatin 10 mg tablet 10 mg PO QHS 06/24/16 05/29/25 His tory pantoprazole 40 mg tablet,delayed 40 mg PO DAILY 12/30/24 05/29/25 History release (Protonix) apixaban 5 mg tablet (Eliquis) 5 mg PO BID #60 tabs 12/31/2406/17 Rx sennosides 8.6 mg tablet (Senokot) 8.6 mg PO DAILY 12/31/24 5 History metoprolol tartrate 25 mg tablet 25 mg PO BID #180 tabs 03/21/25 Rx furosemide 20 mg tablet (Lasix) 20 mg PO DAILY PRN edema #30 tabs 03/25/25 05/29/25 Rx potassium chloride 10 mEq 10 meq PO DAILY PRN with the lasix 03/25/25 05/29/25 Rx tablet,extended release #30 tabs diltiazem HCl 120 mg 120 mg PO BID #0 caps 05/13/2506/17 Rx capsule,extended release 24 hr digoxin 125 mcg (0.125 mg) tablet 125 mcg PO DAILY 30 days #30 tabs 05/30/25 Unknown Rx Allergy/AdvReac Type Severity Reaction Status Date / Time morphine Allergy Anaphylaxis Verified 05/30/25 10:59 niacin Allergy Rash Verified 05/30/25 10:59 procaine HCl (From Novocain) Allergy Anaphylaxis Verified 05/30/25 10:59 tetracycline Allergy Rash Verified 05/30/25 10:59 omeprazole AdvReac Severe Diarrhea Verified 05/30/25 10:59 Family History (Reviewed 03/25/25 @ 09: by Omid Dobbs, RN) Father Cancer Hypertension Respiratory disease Mother Diabetes Epilepsy Heart disease Brother CVA (cerebral vascular accident) Surgical History (Reviewed 03/25/25 @ 09: by Omid Dobbs, RN) History of appendectomy History of cataract surgery History of total hysterectomy Social History (Reviewed 03/25/25 @ 09: by Omid Dobbs, RN) household members: none Smoking Status: Never smoker alcohol intake: never substance use type: does not use additional social history: Does Take Aspirin Does Not Take Ibuprofen EXAM Physical Exam Const Vital Signs: 05/30/25 10:56 05/30/25 11:56 05/30/25 11:56 Temperature 98.1 F 97.8 F Temperature Source Oral Temporal Pulse Rate 147 H 126 H Pulse Rate [1 (Initial Baseline)] Pul (more content not included)... Normal [facility] Eosinophil percentageOrdered By: ED PROVIDER on 05-30-2025 Eosinophils/100 WBC (Bld) 0.7 % 0-5 [facility] Erythrocyte distribution wid th ratioOrdered By: ED PROVIDER on 05-30-2025 Erythrocyte distribution width (RBC) [Ratio] 14.6 % 11.6-14.6 [facility] Erythrocyte distribution wid th standard deviationOrdered By: ED PROVIDER on 05-30-2025 Erythrocyte distribution width (RBC) [Ratio] 47.8 fl High 35.1-43.9 [facility] Glomerular filtration rate ( GFR) estimation/1.73 sq m using serum, plasma, or whole bOrdered By: ED PROVIDER on 05-30-2025 GFR/1.73 sq M.predicted among non-blacks MDRD (S/P/Bld) [Vol rate/Area] 71 mL/min/{1.73_m2} >60 [facility] Comment on above: mL/min/1.73m2 CKD-EP I Creatinine Equation (2020) Hematocrit Auto (Bld) [Volum e fraction]Ordered By: ED PROVIDER on 05-30-2025 Hematocrit (Bld) [Volume fraction] 45.9 % 37-47 [facility] Hemoglobin measurementOrdere d By: ED PROVIDER on 05-30-2025 Hemoglobin (Bld) [Mass/Vol] 15.4 g/dL High 12.0-15.0 [facility] Immature granulocytes/100 WB C Auto (Bld)Ordered By: ED PROVIDER on 05-30-2025 Immature granulocytes/100 WBC (Bld) 0.400 % 0.0-0.9 [facility] Comment on above: IG% - Immature Granu locytes (promyelocytes, myelocytes and metamyelocytes) > 1% indicates that a LEFT SHIFT is Present. International normalized rat io (INR) calculationOrdered By: ED PROVIDER on 05-30-2025 INR Coag (Bld) [Relative time] 1.2 {INR} [facility] L499.0042on 05-30-2025 Trop T High Sen Normal <=14 [facility] Comment on above: Result Comment: NO S PECIMEN COLLECTED. PATIENT DEPARTED ED. Performed By: #### L 499.0042 #### [facility] [address] [place], [address] L499.0043on 05-30-2025 Trop T High Sen Normal <=14 [facility] Comment on above: Result Comment: Migue gaming via OM: Ordered Performed By: #### L 499.0042 #### [facility] [address] [place], [address] L501.4021on 05-30-2025 Trop T High Sen 22 ng/L High <=14 [facility] Comment on above: Performed By: #### L 499.0042 #### [facility] [address] [place], [address] L503.7505on 05-30-2025 Natriuretic peptide B (Bld) [Mass/Vol] 784 pg/mL Normal <=1800 [facility] Comment on above: Result Comment: Hear t Failure Unlikely: < 300 pg/mL Heart Failure Likely < 50 Years: > 450 pg/mL 50-75 Years: > 900 pg/mL >75 Years: > 1800 pg/mL Performed By: #### L 500.2500, L503.6620, L501.9520, L506.0400 #### [facility] [address] [place], [address] MCV (mean corpuscular volume ) determinationOrdered By: ED PROVIDER on 05-30-2025 MCV (RBC) [Entitic vol] 90.0 fL 81-99 [facility] Mean corpuscular hemoglobin (MCH) determinationOrdered By: ED PROVIDER on 05-30-2025 MCH (RBC) [Entitic mass] 30.2 pg 27.0-32.0 [facility] Mean corpuscular hemoglobin concentration (MCHC) determinationOrdered By: ED PROVIDER on 05-30-2025 MCHC (RBC) [Mass/Vol] 33.6 g/dL 32-36 [facility] Mean platelet volume determi nationOrdered By: ED PROVIDER on 05-30-2025 Platelet mean volume (Bld) [Entitic vol] 10.2 fL 6.2-12.0 [facility] Monocyte percentageOrdered B y: ED PROVIDER on 05-30-2025 Monocytes/100 WBC (Bld) 7.0 % 0-10 [facility] Natriuretic peptide.B prohor anabel N-Terminal [Mass/volume] in Serum or PlasmaOrdered By: Dwight Patricia on 05-30-2025 Natriuretic peptide.B prohormone N-Terminal [Mass/Vol] 784 pg/mL <1800 [facility] Comment on above: Heart Failure Unlike ly: < 300 pg/mLHeart Failure Likely< 50 Years: > 450 pg/mL50-75 Years: > 900 pg/mL>75 Years: > 1800 pg/mL Neutrophil percentageOrdered By: ED PROVIDER on 05-30-2025 Neutrophils/100 WBC (Bld) 62.3 % 47-70 [facility] Nucleated red blood cell per centageOrdered By: ED PROVIDER on 05-30-2025 Nucleated RBC/100 WBC (Bld) [Ratio] 0 % 0-5 [facility] Platelet countOrdered By: ED PROVIDER on 05-30-2025 Platelets (Bld) [#/Vol] 238 10*3/uL 150-450 [facility] Potassium measurement (mass/ volume)Ordered By: ED PROVIDER on 05-30-2025 Potassium (Unsp spec) [Mass/Vol] 4.1 mmol/L 3.3-5.1 [facility] Prothrombin Time w/INRon INR Coag (PPP) [Relative time] 1.2 {INR} Normal [facility] Comment on above: Performed By: #### L 499.0042 #### [facility] [address] [place], [address] Prothrombin timeOrdered By: ED PROVIDER on 05-30-2025 PT Coag (PPP) [Time] 15.7 s High 11.7-14.9 [facility] Comment on above: Performed By: #### L 499.0042 #### [facility] [address] [place], [address] RBC Auto (Bld) [#/Vol]Ordere d By: ED PROVIDER on 05-30-2025 RBC (Bld) [#/Vol] 5.10 10*6/uL 4.2-5.4 [facility] Serum creatinine measurement (mass/volume)Ordered By: ED PROVIDER on 05-30-2025 Creatinine [Mass/Vol] 0.82 mg/dL 0.70-1.20 [facility] Serum glucose measurement (m ass/volume)Ordered By: ED PROVIDER on 05-30-2025 Glucose [Mass/Vol] 114 mg/dL High 70-99 [facility] Serum or plasma calcium balaji urement (mass/volume)Ordered By: ED PROVIDER on 05-30-2025 Calcium [Mass/Vol] 9.6 mg/dL 7.6-11.0 [facility] Serum or plasma urea nitroge n measurement (mass/volume)Ordered By: ED PROVIDER on 05-30-2025 Urea nitrogen [Mass/Vol] 12 mg/dL 4-19 [facility] Sodium levelOrdered By: ED P DONY on 05-30-2025 Sodium [Moles/Vol] 142 mmol/L 133-145 [facility] Troponin T.cardiac [Mass/vol ume] in Serum or Plasma by High sensitivity methodOrdered By: ED PROVIDER on 05-30-2025 Troponin T.cardiac High sensitivity method [Mass/Vol] 22 ng/L High <14 [facility] Comment on above: Delta: 17 on White blood cell (WBC) count Ordered By: ED PROVIDER on 05-30-2025 WBC (Bld) [#/Vol] 7.4 10*3/uL 4.4-11.0 [facility] Absolute lymphocyte countOrd ered By: Dwight Patricia on 05-05-2025 Lymphocytes Auto (Unsp spec) [#/Vol] 2.65 10*3/uL 0.83-4.51 [facility] Absolute neutrophil countOrd ered By: Dwight Patricia on 05-05-2025 Neutrophils (Bld) [#/Vol] 3.1 10*3/uL 2.0-7.7 [facility] Activated partial thrombopla stin time (aPTT) in platelet poor plasma by coagulation aOrdered By: Dwight Patricia on 05-05-2025 aPTT Coag (PPP) [Time] 27.0 s 24.1-36.2 [facility] Anion gap in Serum or Plasma Ordered By: Dwight Patricia on 05-05-2025 Anion gap [Moles/Vol] 15 mmol/L - [facility] Automated lymphocyte count a s percentage of total leukocytesOrdered By: Dwight Patricia on 05-05-2025 Lymphocytes/100 WBC Auto (Unsp spec) 40.8 % [facility] BUN/creatinine ratioOrdered By: Dwight Patricia on 05-05-2025 Urea nitrogen/Creatinine [Mass ratio] 15.3 mg/mg - [facility] Basic Metabolic Profile (BMP )on 05-05-2025 BUN/CRE 15.3 RATIO Normal - [facility] Comment on above: Performed By: #### L 500.2500, L503.6620, L501.9520, L506.0400 #### [facility] [address] [place], [address] Calcium [Mass/Vol] 9.6 mg/dL Normal 7.6-11.0 [facility] Comment on above: Performed By: #### L 500.2500, L503.6620, L501.9520, L506.0400 #### [facility] [address] [place], [address] Chloride [Moles/Vol] 101 mmol/L Normal 98-108 [facility] Comment on above: Performed By: #### L 500.2500, L503.6620, L501.9520, L506.0400 #### [facility] [address] [place], [address] CO2 [Moles/Vol] 23.3 mmol/L Normal 21.0-32.0 [facility] Comment on above: Performed By: #### L 500.2500, L503.6620, L501.9520, L506.0400 #### [facility] [address] [place], [address] Creatinine [Mass/Vol] 0.89 mg/dL Normal 0.70-1.20 [facility] Comment on above: Performed By: #### L 500.2500, L503.6620, L501.9520, L506.0400 #### [facility] [address] [place], [address] ECRCL 45.85 ml/min Low 50-250 [facility] Comment on above: Performed By: #### L 500.2500, L503.6620, L501.9520, L506.0400 #### [facility] [address] [place], [address] GAP 15 Normal 5-15 [facility] Comment on above: Performed By: #### L 500.2500, L503.6620, L501.9520, L506.0400 #### [facility] [address] [place], [address] GFR/1.73 sq M.predicted among non-blacks MDRD (S/P/Bld) [Vol rate/Area] 64 mL/min/{1.73_m2} Normal >60 [facility] Comment on above: Result Comment: mL/m in/1.73m2 CKD-EPI Creatinine Equation (2020) Performed By: #### L 500.2500, L503.6620, L501.9520, L506.0400 #### [facility] [address] [place], [address] Glucose [Mass/Vol] 156 mg/dL High 70-99 [facility] Comment on above: Performed By: #### L 500.2500, L503.6620, L501.9520, L506.0400 #### [facility] [address] [place], [address] Potassium [Moles/Vol] 3.7 mmol/L Normal 3.3-5.1 [facility] Comment on above: Performed By: #### L 500.2500, L503.6620, L501.9520, L506.0400 #### [facility] [address] [place], [address] Sodium [Moles/Vol] 139 mmol/L Normal 133-145 [facility] Comment on above: Performed By: #### L 500.2500, L503.6620, L501.9520, L506.0400 #### [facility] [address] [place], [address] Urea nitrogen [Mass/Vol] 14 mg/dL Normal 4-19 [facility] Comment on above: Performed By: #### L 500.2500, L503.6620, L501.9520, L506.0400 #### [facility] [address] [place], [address] Basophil percentageOrdered B y: Dwight Patricia on 05-05-2025 Basophils/100 WBC (Bld) 0.6 % 0-1 [facility] CBC W/Diff, Automatedon 04-24 Absolute Lymph 2.65 X10 3/uL Normal 0.83-4.51 [facility] Comment on above: Performed By: #### L 500.2500, L503.6620, L501.9520, L506.0400 #### [facility] [address] [place], [address] Absolute Neut 3.1 X10 3/uL Normal 2.0-7.7 [facility] Comment on above: Performed By: #### L 500.2500, L503.6620, L501.9520, L506.0400 #### [facility] [address] [place], [address] Basophils/100 WBC (Bld) 0.6 % Normal 0-1 [facility] Comment on above: Performed By: #### L 500.2500, L503.6620, L501.9520, L506.0400 #### [facility] [address] [place], [address] Eosinophils/100 WBC (Bld) 2.0 % Normal 0-5 [facility] Comment on above: Performed By: #### L 500.2500, L503.6620, L501.9520, L506.0400 #### [facility] [address] [place], [address] Erythrocyte distribution width (RBC) [Ratio] 14.2 % Normal 11.6-14.6 [facility] Comment on above: Performed By: #### L 500.2500, L503.6620, L501.9520, L506.0400 #### [facility] [address] [place], [address] Hematocrit (Bld) [Volume fraction] 45.2 % Normal 37-47 [facility] Comment on above: Performed By: #### L 500.2500, L503.6620, L501.9520, L506.0400 #### [facility] [address] [place], [address] Hemoglobin (Bld) [Mass/Vol] 15.2 g/dL High 12.0-15.0 [facility] Comment on above: Performed By: #### L 500.2500, L503.6620, L501.9520, L506.0400 #### [facility] [address] [place], [address] IG% 0.500 Normal 0.0-0.9 [facility] Comment on above: Result Comment: IG% - Immature Granulocytes (promyelocytes, myelocytes and metamyelocytes) > 1% indicates that a LEFT SHIFT is Present. Performed By: #### L 500.2500, L503.6620, L501.9520, L506.0400 #### [facility] [address] [place], [address] Lymphocytes/100 WBC (Bld) 40.8 % Normal 19-41 [facility] Comment on above: Performed By: #### L 500.2500, L503.6620, L501.9520, L506.0400 #### [facility] [address] [place], [address] MCH (RBC) [Entitic mass] 30.0 pg Normal 27.0-32.0 [facility] Comment on above: Performed By: #### L 500.2500, L503.6620, L501.9520, L506.0400 #### [facility] [address] [place], [address] MCHC (RBC) [Mass/Vol] 33.6 g/dL Normal 32-36 [facility] Comment on above: Performed By: #### L 500.2500, L503.6620, L501.9520, L506.0400 #### [facility] [address] [place], [address] MCV (RBC) [Entitic vol] 89.2 fL Normal 81-99 [facility] Comment on above: Performed By: #### L 500.2500, L503.6620, L501.9520, L506.0400 #### [facility] [address] [place], [address] Monocytes/100 WBC (Bld) 8.5 % Normal 0-10 [facility] Comment on above: Performed By: #### L 500.2500, L503.6620, L501.9520, L506.0400 #### [facility] [address] [place], [address] Neutrophils/100 WBC (Bld) 47.6 % Normal 47-70 [facility] Comment on above: Performed By: #### L 500.2500, L503.6620, L501.9520, L506.0400 #### [facility] [address] [place], [address] Nucleated RBC (Bld) [#/Vol] 0 10*3/uL Normal 0-5 [facility] Comment on above: Performed By: #### L 500.2500, L503.6620, L501.9520, L506.0400 #### [facility] [address] [place], [address] Platelet mean volume (Bld) [Entitic vol] 10.5 fL Normal 6.2-12.0 [facility] Comment on above: Performed By: #### L 500.2500, L503.6620, L501.9520, L506.0400 #### [facility] [address] [place], [address] Platelets (Bld) [#/Vol] 220 10*3/uL Normal 150-450 [facility] Comment on above: Performed By: #### L 500.2500, L503.6620, L501.9520, L506.0400 #### [facility] [address] [place], [address] RBC (Bld) [#/Vol] 5.07 10*6/uL Normal 4.2-5.4 [facility] Comment on above: Performed By: #### L 500.2500, L503.6620, L501.9520, L506.0400 #### [facility] [address] [place], [address] RDW SD 46.2 fl High 35.1-43.9 [facility] Comment on above: Performed By: #### L 500.2500, L503.6620, L501.9520, L506.0400 #### [facility] [address] [place], [address] WBC (Bld) [#/Vol] 6.5 10*3/uL Normal 4.4-11.0 [facility] Comment on above: Performed By: #### L 500.2500, L503.6620, L501.9520, L506.0400 #### [facility] Laboratory [address] [place], [address] Carbon dioxide, total [Moles /volume] in Central venous bloodOrdered By: Dwight Patricia on 05-05-2025 CO2 [Moles/Vol] 23.3 mmol/L 21.0-32.0 [facility] Chest PA and Lateralon 05-05 Chest PA and Lateral [facility] Imaging Services [address] [place] [address] Chest PA and Lateral MR#: [id number] Acct: [id number] Name: AL LEWIS ANN Rep #: [id number] : 1940 F 84 From: Pamela Valdez nd, MD PCP: Dr. Jacquie Coleman MD Status: REG ER Study: Chest PA and Lateral Date of Exam: 05/05/25 Exam# [id number] Ordering Dr: Dwight Patricia DO PROCEDURE: CHEST [...] Lateral IMPRESSION: Stable mild cardiomegaly. Reading Location: [id number] CC: Dr. Dwight Patricia DO; Dr. Jacquie Coleman MD Hospitalist Medical Director: Signed Normal [facility] Chloride assayOrdered By: Avery Patricia on 05-05-2025 Chloride [Moles/Vol] 101 mmol/L 98-108 [facility] Emergency Department Summary on 05-05-2025 Emergency Department Summary [facility] Medical Records Department [address] [place] [id number] Emergency Department Summary 05/05/25 MR#: [id number] Acct: [id number] Name: AL LEWIS ANN Rep #: [id number] : 1940 84 From: Dwight Patricia DO [...] intact Psych: Cooperative, appropriate mood and affect [facility] Medical History Atrial fibrillation with RVR [...] Room Air (more content not included)... Normal [facility] Eosinophil percentageOrdered By: Dwighttheodora Patricia on 05-05-2025 Eosinophils/100 WBC (Bld) 2.0 % 0-5 [facility] Erythrocyte distribution wid th ratioOrdered By: [facility] CenterGrec[facility] on 05-05-2025 Erythrocyte distribution width (RBC) [Ratio] 14.2 % 11.6-14.6 [facility] Erythrocyte distribution wid th standard deviationOrdered By: [facility] Hospitaljenny Davey on 05-05-2025 Erythrocyte distribution width (RBC) [Ratio] 46.2 fl High 35.1-43.9 [facility] Glomerular filtration rate ( GFR) estimation/1.73 sq m using serum, plasma, or whole bOrdered By: [facility] HospitalJason on 05-05-2025 GFR/1.73 sq M.predicted among non-blacks MDRD (S/P/Bld) [Vol rate/Area] 64 mL/min/{1.73_m2} >60 [facility] Comment on above: mL/min/1.73m2 CKD-EP I Creatinine Equation (2020) Hematocrit Auto (Bld) [Volum e fraction]Ordered By: [facility] on 05-05-2025 Hematocrit (Bld) [Volume fraction] 45.2 % 37-47 [facility] Hemoglobin measurementOrdere d By: [facility] CenterGrecia on 05-05-2025 Hemoglobin (Bld) [Mass/Vol] 15.2 g/dL High 12.0-15.0 [facility] Immature granulocytes/100 WB C Auto (Bld)Ordered By: [facility] CenterGrec[facility] on 05-05-2025 Immature granulocytes/100 WBC (Bld) 0.500 % 0.0-0.9 [facility] Comment on above: IG% - Immature Granu locytes (promyelocytes, myelocytes and metamyelocytes) > 1% indicates that a LEFT SHIFT is Present. International normalized rat io (INR) calculationOrdered By: [facility] CenterGrecia on 05-05-2025 INR Coag (Bld) [Relative time] 1.0 {INR} [facility] L499.0042on 06-12-2025 Trop T High Sen Normal <=14 [facility] Comment on above: Result Comment: PT D ISCHARGED Performed By: #### L 499.0042 #### [facility] Laboratory [address] [place], [address] L501.4021on 05-05-2025 Trop T High Sen 17 ng/L High <=14 [facility] Comment on above: Performed By: #### L 499.0042 #### [facility] Laboratory [address] [place], [address] L503.7505on 05-05-2025 Natriuretic peptide B (Bld) [Mass/Vol] 509 pg/mL Normal <=1800 [facility] Comment on above: Result Comment: Hear t Failure Unlikely: < 300 pg/mL Heart Failure Likely < 50 Years: > 450 pg/mL 50-75 Years: > 900 pg/mL >75 Years: > 1800 pg/mL Performed By: #### L 500.2500, L503.6620, L501.9520, L506.0400 #### [facility] [address] [place], [address] MCV (mean corpuscular volume ) determinationOrdered By: Dwight Patricia on 05-05-2025 MCV (RBC) [Entitic vol] 89.2 fL 81-99 [facility] Magnesiumon 05-05-2025 Magnesium [Mass/Vol] 2.1 mg/dL Normal 1.5-2.2 [facility] Comment on above: Performed By: #### L 500.2500, L503.6620, L501.9520, L506.0400 #### [facility] [address] [place], [address] Magnesium measurement (mass/ volume)Ordered By: Dwight Patricia on 05-05-2025 Magnesium (Unsp spec) [Mass/Vol] 2.1 mg/dL 1.5-2.2 [facility] Mean corpuscular hemoglobin (MCH) determinationOrdered By: Dwight Patricia on 05-05-2025 MCH (RBC) [Entitic mass] 30.0 pg 27.0-32.0 [facility] Mean corpuscular hemoglobin concentration (MCHC) determinationOrdered By: Dwight Patricia on 05-05-2025 MCHC (RBC) [Mass/Vol] 33.6 g/dL 32-36 [facility] Mean platelet volume determi nationOrdered By: Dwight Patricia on 05-05-2025 Platelet mean volume (Bld) [Entitic vol] 10.5 fL 6.2-12.0 [facility] Monocyte percentageOrdered B y: Dwight Patricia on 05-05-2025 Monocytes/100 WBC (Bld) 8.5 % 0-10 [facility] Natriuretic peptide.B prohor anabel N-Terminal [Mass/volume] in Serum or PlasmaOrdered By: Dwight Patricia on 05-05-2025 Natriuretic peptide.B prohormone N-Terminal [Mass/Vol] 509 pg/mL <1800 [facility] Comment on above: Heart Failure Unlike ly: < 300 pg/mLHeart Failure Likely< 50 Years: > 450 pg/mL50-75 Years: > 900 pg/mL>75 Years: > 1800 pg/mL Neutrophil percentageOrdered By: Dwight Patricia on 05-05-2025 Neutrophils/100 WBC (Bld) 47.6 % 47-70 [facility] Nucleated red blood cell per centageOrdered By: Dwight Patricia on 05-05-2025 Nucleated RBC/100 WBC (Bld) [Ratio] 0 % 0-5 [facility] Partial Thromboplast Timeon 05-05-2025 aPTT Coag (Bld) [Time] 27.0 s Normal 24.1-36.2 [facility] Comment on above: Performed By: #### L 500.2500, L503.6620, L501.9520, L506.0400 #### [facility] [address] [place], [address] Platelet countOrdered By: Avery Patricia on 05-05-2025 Platelets (Bld) [#/Vol] 220 10*3/uL 150-450 [facility] Potassium measurement (mass/ volume)Ordered By: Dwight Patricia on 05-05-2025 Potassium (Unsp spec) [Mass/Vol] 3.7 mmol/L 3.3-5.1 [facility] Prothrombin Time w/INRon INR Coag (PPP) [Relative time] 1.0 {INR} Normal [facility] Comment on above: Performed By: #### L 500.2500, L503.6620, L501.9520, L506.0400 #### [facility] [address] [place], [address] PT Coag (PPP) [Time] 13.5 s Normal 11.7-14.9 [facility] Comment on above: Performed By: #### L 500.2500, L503.6620, L501.9520, L506.0400 #### [facility] [address] [place], [address] Prothrombin timeOrdered By: Dwight Patricia on 05-05-2025 PT Coag (PPP) [Time] 13.5 s 11.7-14.9 [facility] RBC Auto (Bld) [#/Vol]Ordere d By: Dwight Patricia on 05-05-2025 RBC (Bld) [#/Vol] 5.07 10*6/uL 4.2-5.4 [facility] Serum creatinine measurement (mass/volume)Ordered By: Dwight Patricia on 05-05-2025 Creatinine [Mass/Vol] 0.89 mg/dL 0.70-1.20 [facility] Serum glucose measurement (m ass/volume)Ordered By: Dwight Patricia on 05-05-2025 Glucose [Mass/Vol] 156 mg/dL High 70-99 [facility] Serum or plasma calcium balaji urement (mass/volume)Ordered By: Dwight Davey on 05-05-2025 Calcium [Mass/Vol] 9.6 mg/dL 7.6-11.0 [facility] Serum or plasma urea nitroge n measurement (mass/volume)Ordered By: Dwight Patricia on 05-05-2025 Urea nitrogen [Mass/Vol] 14 mg/dL 4-19 [facility] Sodium levelOrdered By: Terry Patricia on 05-05-2025 Sodium [Moles/Vol] 139 mmol/L 133-145 [facility] Troponin T.cardiac [Mass/vol ume] in Serum or Plasma by High sensitivity methodOrdered By: Dwight Patricia on 05-05-2025 Troponin T.cardiac High sensitivity method [Mass/Vol] 17 ng/L High <14 [facility] Comment on above: Delta: 25 on 5-2330 White blood cell (WBC) count Ordered By: Dwight Patricia on 05-05-2025 WBC (Bld) [#/Vol] 6.5 10*3/uL 4.4-11.0 [facility] Cardiology Visit Reporton Cardiology Visit Report [facility] [address] [place] [address]. [address] [place] [address] OFFICE VISIT Date of Service: 03/25/25 MR#: [id number] Acct: [id number] Name: AL LEWIS Rep #: [id number] : 1940 Provider: ART Keenan Age/Sex: 84/F [place] [facility] Status: Signed HPI HPI History of [...] demonstrating sinus bradycardia. She does have a MXU9PH1-CPPj score of at least 3 and was [...] Pulse Source NIBP Intake Visit Reasons: S/P [facility] 03/17 Smt Operator Required: No Accompanied by: Self Is patient [...] 5 mg PO BID #60 tabs 12/31/24 0501/18 Rx sennosides 8.6 mg tablet (Senokot) 8.6 [...] for fatigue (more content not included)... Normal [facility] Basic Metabolic Profile (BMP )on 03-18-2025 BUN/CRE 20.1 RATIO High 09-12 [facility] Comment on above: Performed By: #### L 500.2500, L503.6620, L501.9520, L506.0400 #### [facility] [address] [place], [address] ECRCL 47.80 ml/min Low 50-250 [facility] Comment on above: Performed By: #### L 500.2500, L503.6620, L501.9520, L506.0400 #### [facility] [address] [place], [address] GAP 15 Normal 5-15 [facility] Comment on above: Performed By: #### L 500.2500, L503.6620, L501.9520, L506.0400 #### [facility] [address] [place], [address] Potassium [Moles/Vol] 3.9 mmol/L Normal 3.3-5.1 [facility] Comment on above: Performed By: #### L 500.2500, L503.6620, L501.9520, L506.0400 #### [facility] [address] [place], [address] Emergency Department Summary on 03-18-2025 Emergency Department Summary [facility] Medical Records Department [address] [place] [address] Emergency Department Summary 03/18/25 MR#: [id number] Acct: [id number] Name: AL LEWIS ANN Rep #: [id number] : 1940 84 From: Dwight Patricia DO [...] intact Psych: Cooperative, appropriate mood and affect [facility] Medical History Palpitations Cardiac murmur Vitamin [...] for evaluati (more content not included)... Normal [facility] L499.0042on 03-18-2025 Trop T High Sen 29 ng/L High <=14 [facility] Comment on above: Performed By: #### L 500.2500, L503.6620, L501.9520, L506.0400 #### [facility] Laboratory [address] [place], [address] L499.0043on 03-18-2025 Trop T High Sen Normal <=14 [facility] Comment on above: Result Comment: Migue gaming via OM: Ordered Performed By: #### L 500.2500, L503.6620, L501.9520, L506.0400 #### [facility] [address] [place], [address] L501.4021on 03-18-2025 Trop T High Sen 25 ng/L High <=14 [facility] Comment on above: Performed By: #### L 500.2500, L503.6620, L501.9520, L506.0400 #### [facility] [address] [place], [address] Magnesiumon 03-18-2025 Magnesium [Mass/Vol] 2.1 mg/dL Normal 1.5-2.2 [facility] Comment on above: Performed By: #### L 499.0042 #### [facility] [address] [place], [address] Magnesium measurement (mass/ volume)Ordered By: Dwight Patricia on 03-18-2025 Magnesium (Unsp spec) [Mass/Vol] 2.1 mg/dL 1.5-2.2 [facility] Troponin T.cardiac [Mass/vol ume] in Serum or Plasma by High sensitivity methodOrdered By: Dwight Patricia on 03-18-2025 Troponin T.cardiac High sensitivity method [Mass/Vol] 29 ng/L High <14 [facility] Absolute lymphocyte countOrd ered By: ED PROVIDER on 03-17-2025 Lymphocytes Auto (Unsp spec) [#/Vol] 3.50 10*3/uL 0.83-4.51 [facility] Absolute lymphocyte countOrd ered By: Omid Foley on 03-17-2025 Lymphocytes Auto (Unsp spec) [#/Vol] 5.15 10*3/uL High 0.83-4.51 [facility] Absolute neutrophil countOrd ered By: ED PROVIDER on 03-17-2025 Neutrophils (Bld) [#/Vol] 4.4 10*3/uL 2.0-7.7 [facility] Absolute neutrophil countOrd ered By: Omid Foley on 03-17-2025 Neutrophils (Bld) [#/Vol] 4.1 10*3/uL 2.0-7.7 [facility] Anion gap in Serum or Plasma Ordered By: Dwight Patricia on 03-17-2025 Anion gap [Moles/Vol] 15 mmol/L 04-07 [facility] Anion gap in Serum or Plasma Ordered By: Omid Foley on 03-17-2025 Anion gap [Moles/Vol] 16 mmol/L High 04-07 [facility] Automated lymphocyte count a s percentage of total leukocytesOrdered By: ED PROVIDER on 03-17-2025 Lymphocytes/100 WBC Auto (Unsp spec) 39.0 % [facility] Automated lymphocyte count a s percentage of total leukocytesOrdered By: Omid Foley on 03-17-2025 Lymphocytes/100 WBC Auto (Unsp spec) 49.6 % High [facility] BUN/creatinine ratioOrdered By: Dwight Patricia on 03-17-2025 Urea nitrogen/Creatinine [Mass ratio] 20.1 mg/mg High 09-12 [facility] BUN/creatinine ratioOrdered By: Omid Foley on 03-17-2025 Urea nitrogen/Creatinine [Mass ratio] 13.6 mg/mg 09-12 [facility] Basic Metabolic Profile (BMP )on 03-17-2025 BUN/CRE 13.6 RATIO Normal 09-12 [facility] Comment on above: Performed By: #### L 500.2500, L503.6620, L501.9520, L506.0400 #### [facility] [address] [place], [address] Calcium [Mass/Vol] 9.6 mg/dL Normal 7.6-11.0 [facility] Comment on above: Performed By: #### L 500.2500, L503.6620, L501.9520, L506.0400 #### [facility] [address] [place], [address] Chloride [Moles/Vol] 100 mmol/L Normal 98-108 [facility] Comment on above: Performed By: #### L 500.2500, L503.6620, L501.9520, L506.0400 #### [facility] [address] [place], [address] CO2 [Moles/Vol] 22.4 mmol/L Normal 21.0-32.0 [facility] Comment on above: Performed By: #### L 500.2500, L503.6620, L501.9520, L506.0400 #### [facility] [address] [place], [address] Creatinine [Mass/Vol] 1.13 mg/dL Normal 0.70-1.20 [facility] Comment on above: Performed By: #### L 500.2500, L503.6620, L501.9520, L506.0400 #### [facility] [address] [place], [address] GAP 16 High 5-15 [facility] Comment on above: Performed By: #### L 500.2500, L503.6620, L501.9520, L506.0400 #### [facility] [address] [place], [address] GFR/1.73 sq M.predicted among non-blacks MDRD (S/P/Bld) [Vol rate/Area] 48 mL/min/{1.73_m2} Low >60 [facility] Comment on above: Result Comment: mL/m in/1.73m2 CKD-EPI Creatinine Equation (2020) Performed By: #### L 500.2500, L503.6620, L501.9520, L506.0400 #### [facility] [address] [place], [address] Glucose [Mass/Vol] 138 mg/dL High 70-99 [facility] Comment on above: Performed By: #### L 500.2500, L503.6620, L501.9520, L506.0400 #### [facility] [address] [place], [address] Potassium [Moles/Vol] 3.9 mmol/L Normal 3.3-5.1 [facility] Comment on above: Result Comment: Hemo lysis present, Results??could be affected. ?? Performed By: #### L 500.2500, L503.6620, L501.9520, L506.0400 #### [facility] [address] [place], [address] Sodium [Moles/Vol] 138 mmol/L Normal 133-145 [facility] Comment on above: Performed By: #### L 500.2500, L503.6620, L501.9520, L506.0400 #### [facility] [address] [place], [address] Urea nitrogen [Mass/Vol] 15 mg/dL Normal 4-19 [facility] Comment on above: Performed By: #### L 500.2500, L503.6620, L501.9520, L506.0400 #### [facility] [address] [place], [address] Basophil percentageOrdered B y: ED PROVIDER on 03-17-2025 Basophils/100 WBC (Bld) 0.6 % 0-1 [facility] Basophil percentageOrdered B y: Omid Foley on 03-17-2025 Basophils/100 WBC (Bld) 0.6 % 0-1 [facility] CBC W/Diff, Automatedon 04-2 -2024 Absolute Lymph 3.50 X10 3/uL Normal 0.83-4.51 [facility] Comment on above: Performed By: #### L 500.2500, L503.6620, L501.9520, L506.0400 #### [facility] [address] [place], [address] Absolute Neut 4.4 X10 3/uL Normal 2.0-7.7 [facility] Comment on above: Performed By: #### L 500.2500, L503.6620, L501.9520, L506.0400 #### [facility] [address] [place], [address] Basophils/100 WBC (Bld) 0.6 % Normal 0-1 [facility] Comment on above: Performed By: #### L 500.2500, L503.6620, L501.9520, L506.0400 #### [facility] [address] [place], [address] Eosinophils/100 WBC (Bld) 2.4 % Normal 0-5 [facility] Comment on above: Performed By: #### L 500.2500, L503.6620, L501.9520, L506.0400 #### [facility] [address] [place], [address] Erythrocyte distribution width (RBC) [Ratio] 13.9 % Normal 11.6-14.6 [facility] Comment on above: Performed By: #### L 500.2500, L503.6620, L501.9520, L506.0400 #### [facility] [address] [place], [address] Hematocrit (Bld) [Volume fraction] 43.7 % Normal 37-47 [facility] Comment on above: Performed By: #### L 500.2500, L503.6620, L501.9520, L506.0400 #### [facility] [address] [place], [address] Hemoglobin (Bld) [Mass/Vol] 14.8 g/dL Normal 12.0-15.0 [facility] Comment on above: Performed By: #### L 500.2500, L503.6620, L501.9520, L506.0400 #### [facility] [address] [place], [address] IG% 0.300 Normal 0.0-0.9 [facility] Comment on above: Result Comment: IG% - Immature Granulocytes (promyelocytes, myelocytes and metamyelocytes) > 1% indicates that a LEFT SHIFT is Present. Performed By: #### L 500.2500, L503.6620, L501.9520, L506.0400 #### [facility] [address] [place], [address] Lymphocytes/100 WBC (Bld) 39.0 % Normal 19-41 [facility] Comment on above: Performed By: #### L 500.2500, L503.6620, L501.9520, L506.0400 #### [facility] [address] [place], [address] MCH (RBC) [Entitic mass] 30.1 pg Normal 27.0-32.0 [facility] Comment on above: Performed By: #### L 500.2500, L503.6620, L501.9520, L506.0400 #### [facility] [address] [place], [address] MCHC (RBC) [Mass/Vol] 33.9 g/dL Normal 32-36 [facility] Comment on above: Performed By: #### L 500.2500, L503.6620, L501.9520, L506.0400 #### [facility] [address] [place], [address] MCV (RBC) [Entitic vol] 89.0 fL Normal 81-99 [facility] Comment on above: Performed By: #### L 500.2500, L503.6620, L501.9520, L506.0400 #### [facility] [address] [place], [address] Monocytes/100 WBC (Bld) 8.6 % Normal 0-10 [facility] Comment on above: Performed By: #### L 500.2500, L503.6620, L501.9520, L506.0400 #### [facility] [address] [place], [address] Neutrophils/100 WBC (Bld) 49.1 % Normal 47-70 [facility] Comment on above: Performed By: #### L 500.2500, L503.6620, L501.9520, L506.0400 #### [facility] [address] [place], [address] Nucleated RBC (Bld) [#/Vol] 0 10*3/uL Normal 0-5 [facility] Comment on above: Performed By: #### L 500.2500, L503.6620, L501.9520, L506.0400 #### [facility] [address] [place], [address] Platelet mean volume (Bld) [Entitic vol] 9.7 fL Normal 6.2-12.0 [facility] Comment on above: Performed By: #### L 500.2500, L503.6620, L501.9520, L506.0400 #### [facility] [address] [place], [address] Platelets (Bld) [#/Vol] 247 10*3/uL Normal 150-450 [facility] Comment on above: Performed By: #### L 500.2500, L503.6620, L501.9520, L506.0400 #### [facility] [address] [place], [address] RBC (Bld) [#/Vol] 4.91 10*6/uL Normal 4.2-5.4 [facility] Comment on above: Performed By: #### L 500.2500, L503.6620, L501.9520, L506.0400 #### [facility] [address] [place], [address] RDW SD 45.3 fl High 35.1-43.9 [facility] Comment on above: Performed By: #### L 500.2500, L503.6620, L501.9520, L506.0400 #### [facility] [address] [place], [address] WBC (Bld) [#/Vol] 9.0 10*3/uL Normal 4.4-11.0 [facility] Comment on above: Performed By: #### L 500.2500, L503.6620, L501.9520, L506.0400 #### [facility] [address] [place], [address] Absolute Lymph 5.15 X10 3/uL High 0.83-4.51 [facility] Comment on above: Performed By: #### L 500.2500, L503.6620, L501.9520, L506.0400 #### [facility] [address] [place], [address] Absolute Neut 4.1 X10 3/uL Normal 2.0-7.7 [facility] Comment on above: Performed By: #### L 500.2500, L503.6620, L501.9520, L506.0400 #### [facility] [address] [place], [address] Basophils/100 WBC (Bld) 0.6 % Normal 0-1 [facility] Comment on above: Performed By: #### L 500.2500, L503.6620, L501.9520, L506.0400 #### [facility] [address] [place], [address] Eosinophils/100 WBC (Bld) 1.6 % Normal 0-5 [facility] Comment on above: Performed By: #### L 500.2500, L503.6620, L501.9520, L506.0400 #### [facility] [address] [place], [address] Erythrocyte distribution width (RBC) [Ratio] 13.5 % Normal 11.6-14.6 [facility] Comment on above: Performed By: #### L 500.2500, L503.6620, L501.9520, L506.0400 #### [facility] [facility] [address] [place], [address] Hematocrit (Bld) [Volume fraction] 47.6 % High 37-47 [facility] Comment on above: Performed By: #### L 500.2500, L503.6620, L501.9520, L506.0400 #### [facility] [address] [place], [address] Hemoglobin (Bld) [Mass/Vol] 15.8 g/dL High 12.0-15.0 [facility] Comment on above: Performed By: #### L 500.2500, L503.6620, L501.9520, L506.0400 #### [facility] [address] [place], [address] IG% 0.300 Normal 0.0-0.9 [facility] Comment on above: Result Comment: IG% - Immature Granulocytes (promyelocytes, myelocytes and metamyelocytes) > 1% indicates that a LEFT SHIFT is Present. Performed By: #### L 500.2500, L503.6620, L501.9520, L506.0400 #### [facility] [address] [place], [address] Lymphocytes/100 WBC (Bld) 49.6 % High 19-41 [facility] Comment on above: Performed By: #### L 500.2500, L503.6620, L501.9520, L506.0400 #### [facility] [address] [place], [address] MCH (RBC) [Entitic mass] 29.9 pg Normal 27.0-32.0 [facility] Comment on above: Performed By: #### L 500.2500, L503.6620, L501.9520, L506.0400 #### [facility] [address] [place], [address] MCHC (RBC) [Mass/Vol] 33.2 g/dL Normal 32-36 [facility] Comment on above: Performed By: #### L 500.2500, L503.6620, L501.9520, L506.0400 #### [facility] [address] [place], [address] MCV (RBC) [Entitic vol] 90.0 fL Normal 81-99 [facility] Comment on above: Performed By: #### L 500.2500, L503.6620, L501.9520, L506.0400 #### [facility] [address] [place], [address] Monocytes/100 WBC (Bld) 8.0 % Normal 0-10 [facility] Comment on above: Performed By: #### L 500.2500, L503.6620, L501.9520, L506.0400 #### [facility] [address] [place], [address] Neutrophils/100 WBC (Bld) 39.9 % Low 47-70 [facility] Comment on above: Performed By: #### L 500.2500, L503.6620, L501.9520, L506.0400 #### [facility] [address] [place], [address] Nucleated RBC (Bld) [#/Vol] 0 10*3/uL Normal 0-5 [facility] Comment on above: Performed By: #### L 500.2500, L503.6620, L501.9520, L506.0400 #### [facility] [address] [place], [address] Platelet mean volume (Bld) [Entitic vol] 10.7 fL Normal 6.2-12.0 [facility] Comment on above: Performed By: #### L 500.2500, L503.6620, L501.9520, L506.0400 #### [facility] [address] [place], [address] Platelets (Bld) [#/Vol] 267 10*3/uL Normal 150-450 [facility] Comment on above: Performed By: #### L 500.2500, L503.6620, L501.9520, L506.0400 #### [facility] [address] [place], [address] RBC (Bld) [#/Vol] 5.29 10*6/uL Normal 4.2-5.4 [facility] Comment on above: Performed By: #### L 500.2500, L503.6620, L501.9520, L506.0400 #### [facility] [address] [place], [address] RDW SD 45.0 fl High 35.1-43.9 [facility] Comment on above: Performed By: #### L 500.2500, L503.6620, L501.9520, L506.0400 #### [facility] [address] [place], [address] WBC (Bld) [#/Vol] 10.4 10*3/uL Normal 4.4-11.0 [facility] Comment on above: Performed By: #### L 500.2500, L503.6620, L501.9520, L506.0400 #### [facility] [address] [place], [address] Carbon dioxide, total [Moles /volume] in Central venous bloodOrdered By: Dwight Patricia on 03-17-2025 CO2 [Moles/Vol] 20.8 mmol/L Low 21.0-32.0 [facility] Comment on above: Performed By: #### L 500.2500, L503.6620, L501.9520, L506.0400 #### [facility] [address] [place], [address] Carbon dioxide, total [Moles /volume] in Central venous bloodOrdered By: Omid Foley on 03-17-2025 CO2 [Moles/Vol] 22.4 mmol/L 21.0-32.0 [facility] Chest 1 View (Portable)on Chest 1 View (Portable) [facility] Imaging Services [address] [place], [place] [address] Chest 1 View (Portable) MR#: [id number] Acct: [id number] Name: AL LEWIS Rep #: [id number] : 1940 F 84 From: Eduin Sim MD PCP: Dr. Jacquie Coleman MD Status: PRE ER Study: Chest 1 View (Portable) Date of Exam: 03/17/25 Exam# [id number] Ordering Dr: Westley,Ed P. PROCEDURE: CHEST 1 VIEW (PORTABLE) 03/17/2025 REASON FOR EXAM: CHEST PAIN TECHNIQUE: Frontal view of the chest. COMPARISON: 12/30/2024 FINDINGS: Hardware: None Heart: Cardiac and mediastinal contours are stable. Lungs: The lungs are clear. Elevated right hemidiaphragm. Bones: The bones are unremarkable. Other: RAD/Chest 1 View (Portable) IMPRESSION: No Acute Findings. Reading Location: [id number] CC: Dr. Jacquie Coleman MD; ED PHYSICIAN PROVIDER Hospitalist Medical Director: Signed Normal [facility] Chloride assayOrdered By: Avery Patricia on 03-17-2025 Chloride [Moles/Vol] 103 mmol/L Normal 98-108 [facility] Comment on above: Performed By: #### L 500.2500, L503.6620, L501.9520, L506.0400 #### [facility] [address] [place], [address] Chloride assayOrdered By: Benton Foley on 03-17-2025 Chloride [Moles/Vol] 100 mmol/L 98-108 [facility] Emergency Department Summary on 03-17-2025 Emergency Department Summary [facility] Medical Records Department [address] [place] [address] Emergency Department Summary 03/17/25 MR#: [id number] Acct: [id number] Name: AL LEWIS Rep #: [id number] : 1940 84 From: Omid Foley DO [...] any chest pain with the current episode. [facility] Medical History Palpitations Cardiac murmur Vitamin [...] (Initial Baselin (more content not included)... Normal [facility] Eosinophil percentageOrdered By: ED PROVIDER on 03-17-2025 Eosinophils/100 WBC (Bld) 2.4 % 0-5 [facility] Eosinophil percentageOrdered By: Omid Foley on 03-17-2025 Eosinophils/100 WBC (Bld) 1.6 % 0-5 [facility] Erythrocyte distribution wid th (RBC) [Ratio]Ordered By: Omid Foley on 03-17-2025 Erythrocyte distribution width (RBC) [Entitic vol] 45.0 fL High 35.1-43.9 [facility] Erythrocyte distribution wid th ratioOrdered By: ED PROVIDER on 03-17-2025 Erythrocyte distribution width (RBC) [Ratio] 13.9 % 11.6-14.6 [facility] Erythrocyte distribution wid th ratioOrdered By: Omid Foley on 03-17-2025 Erythrocyte distribution width (RBC) [Ratio] 13.5 % 11.6-14.6 [facility] Erythrocyte distribution wid th standard deviationOrdered By: ED PROVIDER on 03-17-2025 Erythrocyte distribution width (RBC) [Ratio] 45.3 fl High 35.1-43.9 [facility] Erythrocyte distribution wid th standard deviationOrdered By: Omid Foley on 03-17-2025 Erythrocyte distribution width (RBC) [Ratio] 45.0 fl High 35.1-43.9 [facility] GFR/1.73 sq M.predicted jaime g non-blacks MDRD (S/P/Bld) [Vol rate/Area]Ordered By: Omid Foley on 03-17-2025 Estimated GFR (MDRD) Non-Af Amer 48 Low >60 [facility] Comment on above: mL/min/1.73m2 CKD-EP I Creatinine Equation (2020) Glomerular filtration rate ( GFR) estimation/1.73 sq m using serum, plasma, or whole bOrdered By: Dwight Patricia on 03-17-2025 GFR/1.73 sq M.predicted among non-blacks MDRD (S/P/Bld) [Vol rate/Area] 67 mL/min/{1.73_m2} Normal >60 [facility] Comment on above: mL/min/1.73m2 CKD-EP I Creatinine Equation (2020) Result Comment: mL/m in/1.73m2 CKD-EPI Creatinine Equation (2020) Performed By: #### L 500.2500, L503.6620, L501.9520, L506.0400 #### [facility] [address] [place], [place], [address] Glomerular filtration rate ( GFR) estimation/1.73 sq m using serum, plasma, or whole bOrdered By: Omid Foley on 03-17-2025 GFR/1.73 sq M.predicted among non-blacks MDRD (S/P/Bld) [Vol rate/Area] 48 mL/min/{1.73_m2} Low >60 [facility] Comment on above: mL/min/1.73m2 CKD-EP I Creatinine Equation (2020) Hematocrit Auto (Bld) [Volum e fraction]Ordered By: ED PROVIDER on 03-17-2025 Hematocrit (Bld) [Volume fraction] 43.7 % 37-47 [facility] Hematocrit Auto (Bld) [Volum e fraction]Ordered By: Omid Foley on 03-17-2025 Hematocrit (Bld) [Volume fraction] 47.6 % High 37-47 [facility] Hemoglobin measurementOrdere d By: ED PROVIDER on 03-17-2025 Hemoglobin (Bld) [Mass/Vol] 14.8 g/dL 12.0-15.0 [facility] Hemoglobin measurementOrdere d By: Omid Foley on 03-17-2025 Hemoglobin (Bld) [Mass/Vol] 15.8 g/dL High 12.0-15.0 [facility] Immature granulocytes/100 WB C Auto (Bld)Ordered By: ED PROVIDER on 03-17-2025 Immature granulocytes/100 WBC (Bld) 0.300 % 0.0-0.9 [facility] Comment on above: IG% - Immature Granu locytes (promyelocytes, myelocytes and metamyelocytes) > 1% indicates that a LEFT SHIFT is Present. Immature granulocytes/100 WB C Auto (Bld)Ordered By: Omid Foley on 03-17-2025 Immature granulocytes/100 WBC (Bld) 0.300 % 0.0-0.9 [facility] Comment on above: IG% - Immature Granu locytes (promyelocytes, myelocytes and metamyelocytes) > 1% indicates that a LEFT SHIFT is Present. Lymphocytes Auto (Unsp spec) [#/Vol]Ordered By: Omid Foley on 03-17-2025 Lymphocytes (Bld) [#/Vol] 5.15 10*3/uL High 0.83-4.51 [facility] Lymphocytes/100 WBC Auto (Un sp spec)Ordered By: Omid Foley on 03-17-2025 Lymphocytes/100 WBC (Bld) 49.6 % High 19-41 [facility] MCV (mean corpuscular volume ) determinationOrdered By: ED PROVIDER on 03-17-2025 MCV (RBC) [Entitic vol] 89.0 fL 81-99 [facility] MCV (mean corpuscular volume ) determinationOrdered By: Omid Foley on 03-17-2025 MCV (RBC) [Entitic vol] 90.0 fL 81-99 [facility] Magnesiumon 03-17-2025 Magnesium [Mass/Vol] 2.1 mg/dL Normal 1.5-2.2 [facility] Comment on above: Performed By: #### L 500.2500, L503.6620, L501.9520, L506.0400 #### [facility] [place], [address] Magnesium (Unsp spec) [Mass/ Vol]Ordered By: Omid Foley on 03-17-2025 Magnesium [Mass/Vol] 2.1 mg/dL 1.5-2.2 [facility] Magnesium measurement (mass/ volume)Ordered By: Omid Foley on 03-17-2025 Magnesium (Unsp spec) [Mass/Vol] 2.1 mg/dL 1.5-2.2 [facility] Mean corpuscular hemoglobin (MCH) determinationOrdered By: ED PROVIDER on 03-17-2025 MCH (RBC) [Entitic mass] 30.1 pg 27.0-32.0 [facility] Mean corpuscular hemoglobin (MCH) determinationOrdered By: Omid Foley on 03-17-2025 MCH (RBC) [Entitic mass] 29.9 pg 27.0-32.0 [facility] Mean corpuscular hemoglobin concentration (MCHC) determinationOrdered By: ED PROVIDER on 03-17-2025 MCHC (RBC) [Mass/Vol] 33.9 g/dL 32-36 [facility] Mean corpuscular hemoglobin concentration (MCHC) determinationOrdered By: Omid Foley on 03-17-2025 MCHC (RBC) [Mass/Vol] 33.2 g/dL -36 [facility] Mean platelet volume determi nationOrdered By: ED PROVIDER on 03-17-2025 Platelet mean volume (Bld) [Entitic vol] 9.7 fL 6.2-12.0 [facility] Mean platelet volume determi nationOrdered By: Omid Foley on 03-17-2025 Platelet mean volume (Bld) [Entitic vol] 10.7 fL 6.2-12.0 [facility] Monocyte percentageOrdered B y: ED PROVIDER on 03-17-2025 Monocytes/100 WBC (Bld) 8.6 % 0-10 [facility] Monocyte percentageOrdered B y: Omid Foley on 03-17-2025 Monocytes/100 WBC (Bld) 8.0 % 0-10 [facility] Neutrophil percentageOrdered By: ED PROVIDER on 03-17-2025 Neutrophils/100 WBC (Bld) 49.1 % 47-70 [facility] Neutrophil percentageOrdered By: Omid Foley on 03-17-2025 Neutrophils/100 WBC (Bld) 39.9 % Low 47-70 [facility] Nucleated red blood cell per centageOrdered By: ED PROVIDER on 03-17-2025 Nucleated RBC/100 WBC (Bld) [Ratio] 0 % 0-5 [facility] Nucleated red blood cell per centageOrdered By: Omid Foley on 03-17-2025 Nucleated RBC/100 WBC (Bld) [Ratio] 0 % 0-5 [facility] Platelet countOrdered By: ED PROVIDER on 03-17-2025 Platelets (Bld) [#/Vol] 247 10*3/uL 150-450 [facility] Platelet countOrdered By: Benton Foley on 03-17-2025 Platelets (Bld) [#/Vol] 267 10*3/uL 150-450 [facility] Potassium (Unsp spec) [Mass/ Vol]Ordered By: Omid Foley on 03-17-2025 Potassium [Moles/Vol] 3.9 mmol/L 3.3-5.1 [facility] Comment on above: Hemolysis present, R esults could be affected. Potassium measurement (mass/ volume)Ordered By: Dwight Patricia on 03-17-2025 Potassium (Unsp spec) [Mass/Vol] 3.9 mmol/L 3.3-5.1 [facility] Potassium measurement (mass/ volume)Ordered By: Omid Foley on 03-17-2025 Potassium (Unsp spec) [Mass/Vol] 3.9 mmol/L 3.3-5.1 [facility] Comment on above: Hemolysis present, R esults could be affected. RBC Auto (Bld) [#/Vol]Ordere d By: ED PROVIDER on 03-17-2025 RBC (Bld) [#/Vol] 4.91 10*6/uL 4.2-5.4 [facility] RBC Auto (Bld) [#/Vol]Ordere d By: Omid Foley on 03-17-2025 RBC (Bld) [#/Vol] 5.29 10*6/uL 4.2-5.4 [facility] Serum creatinine measurement (mass/volume)Ordered By: Dwight Patricia on 03-17-2025 Creatinine [Mass/Vol] 0.86 mg/dL Normal 0.70-1.20 [facility] Comment on above: Performed By: #### L 500.2500, L503.6620, L501.9520, L506.0400 #### [facility] [address] [place], [place], [address] Serum creatinine measurement (mass/volume)Ordered By: Omid Foley on 03-17-2025 Creatinine [Mass/Vol] 1.13 mg/dL 0.70-1.20 [facility] Serum glucose measurement (m ass/volume)Ordered By: Dwight Patricia on 03-17-2025 Glucose [Mass/Vol] 115 mg/dL High 70- [facility] Comment on above: Performed By: #### L 500.2500, L503.6620, L501.9520, L506.0400 #### [facility] [address] [place], [address] Serum glucose measurement (m ass/volume)Ordered By: Omid Foley on 03-17-2025 Glucose [Mass/Vol] 138 mg/dL High 70-99 [facility] Serum or plasma calcium balaji urement (mass/volume)Ordered By: Dwight Davey on 03-17-2025 Calcium [Mass/Vol] 9.3 mg/dL Normal 7.6-11.0 [facility] Comment on above: Performed By: #### L 500.2500, L503.6620, L501.9520, L506.0400 #### [facility] [address] [place], [place], [address] Serum or plasma calcium balaji urement (mass/volume)Ordered By: Omid Foley on 03-17-2025 Calcium [Mass/Vol] 9.6 mg/dL 7.6-11.0 [facility] Serum or plasma urea nitroge n measurement (mass/volume)Ordered By: Dwight Patricia on 03-17-2025 Urea nitrogen [Mass/Vol] 17 mg/dL Normal - [facility] Comment on above: Performed By: #### L 500.2500, L503.6620, L501.9520, L506.0400 #### [facility] [address] [place], [place], [address] Serum or plasma urea nitroge n measurement (mass/volume)Ordered By: Omid Foley on 03-17-2025 Urea nitrogen [Mass/Vol] 15 mg/dL - [facility] Sodium levelOrdered By: Terry Patricia on 03-17-2025 Sodium [Moles/Vol] 138 mmol/L Normal 133-145 [facility] Comment on above: Performed By: #### L 500.2500, L503.6620, L501.9520, L506.0400 #### [facility] [address] [place], [place], [address] Sodium levelOrdered By: Graham Foley on 03-17-2025 Sodium [Moles/Vol] 138 mmol/L 133-145 [facility] Troponin T.cardiac [Mass/vol ume] in Serum or Plasma by High sensitivity methodOrdered By: Dwight Patricia on 03-17-2025 Troponin T.cardiac High sensitivity method [Mass/Vol] 25 ng/L High <14 [facility] White blood cell (WBC) count Ordered By: ED PROVIDER on 03-17-2025 WBC (Bld) [#/Vol] 9.0 10*3/uL 4.4-11.0 [facility] White blood cell (WBC) count Ordered By: Omid Foley on 03-17-2025 WBC (Bld) [#/Vol] 10.4 10*3/uL 4.4-11.0 [facility] Cardiovascular stress test r eportOrdered By: Jozef Pena on 03-07-2025 Study report [facility] [address] [place] [address] MR#: [id number] Acct: [id number] Name: AL LEWIS Rep #: [id number] : 1940 84 From: Jozef Pena MD [...] perfusion stress test. Preserved ejection fraction. 03/07/25 110 Date _ Jozef Pena MD CC: Dr. Jozef Pena MD; Dr. Jacquie Coleman MD ~ Date Dictated: 03/07/251102 Date Transcribed: 03/07/251102 Hospitalist Medical Director: [place] Signed [facility] Work Phone: Stress Reporton 03-07-2025 Stress Report [facility] [address] [place] [address] MR#: [id number] Acct: [id number] Name: AL LEWIS Rep #: [id number] : 1940 84 From: Jozef Pena MD [...] Date Dictated: 03/07/25 110 Date Transcribed: 03/07/251102 Hospitalist Medical Director: CO Signed Normal [facility] 12 Lead EKG performed by [facility] [place] 02-23-2025 12 Lead EKG performed by [facility] [address] [place] [address] 12 Lead EKG performed by [facility] 02/23/25 1257 MR#: [id number] Acct: [id number] Name: AL LEWIS Rep #: [id number] : 1940 84 From: Jozef Pena MD Attending Dr: Dr. Jozef Pena MD Status: DEP A MB Ordering Dr: Jozef Pena MD Date: 02/23/25 Location: [facility] Sex: F C Ad[place]: [facility]12 Lead EKG performed by [facility] ECG Report Interpretation ---Sinus Rhythm - frequent PAC s # PACs = 2.-Left axis -anterior fascicular block. Voltage criteria for LVH (R(aVL) exceeds 1.01 mV). -Poor R-wave progression -may be secondary to left ventricular hypertrophy consider old anterior infarct. - Nonspecific T-abnormality. ABNORMAL Electronically signed on 03/02/2025 at 11:24 by Jozef Penawood [employer] Version [id number] 03/02/25 1130 Date Jozef Pena MD CC: Dr. Jacquie Coleman MD Date Dictated: 02/23/25 1257 Date Transcribed: 02/23/25 1257 Hospitalist Medical Director: CO Signed Normal [facility] Cardiology Visit Reporton Cardiology Visit Report [facility] [address] [place] [address] OFFICE VISIT Date of Service: 02/23/25 MR#: [id number] Acct: [id number] Name: AL LEWIS Rep #: [id number] : 1940 Provider: Dr. Jozef Pena MD Age/Sex: 84/F [place] [facility] Status: Signed HPI HPI History of [...] demonstrating sinus bradycardia. She does have a CQX1RH2-KWFt score of at least 3 and was [...] Oximetry (%) 96 Intake Visit Reasons: S/P [facility] 12/31 ([facility]) Smt Operator Required: No Accompanied by: Granddaughter Is patient [...] 5 mg PO BID #60 tabs 12/31/24 04/01/18 Rx diltiazem HCl 120 mg 120 mg PO BID #60 caps 12/31/24 Rx capsule,extended release 24 hr furosemide 20 mg tablet (Lasix) 20 mg PO DAILY #30 tabs 12/31/24 0 02/23/25 Rx potassium chloride 10 mEq 10 meq PO DAILY #30 tabs 12/31/24 02/23/25 Rx tablet,extended release sennosides 8.6 mg tablet (Senokot) 8.6 mg PO DAILY 12/31/24 5 History Have you fallen in the past year?: No [facility] Medical History Palpitations Cardiac murmur Vitamin D [...] normal bilateral (more content not included)... Normal [facility] BNP,B-Type NATRIURETIC PEPTI Kaylah 01-13-2025 Natriuretic peptide B (Bld) [Mass/Vol] 85.3 pg/mL Normal 0-100 [facility] Comment on above: Performed By: #### L 500.2500, L503.6620, L501.9520, L506.0400 #### [facility] [address] [place] [address], [address] BNP (brain natriuretic pepti de measurement)Ordered By: Jacquie Coleman on 01-11-2025 Natriuretic peptide B (Bld) [Mass/Vol] 85.3 pg/mL 0-100 [facility] Basic Metabolic Profile (BMP )on 01-11-2025 BUN/CRE 15.2 RATIO Normal - [facility] Comment on above: Performed By: #### L 500.2500, L503.6620, L501.9520, L506.0400 #### [facility] [address] [place], [address] CA,Total 9.6 mg/dL Normal 8.5-10.1 [facility] Comment on above: Performed By: #### L 500.2500, L503.6620, L501.9520, L506.0400 #### [facility] [address] [place], [address] Chloride [Moles/Vol] 103 mmol/L Normal 98-107 [facility] Comment on above: Performed By: #### L 500.2500, L503.6620, L501.9520, L506.0400 #### [facility] [address] [place], [address] CO2 [Moles/Vol] 27.0 mmol/L Normal 21.0-32.0 [facility] Comment on above: Performed By: #### L 500.2500, L503.6620, L501.9520, L506.0400 #### [facility] [address] [place], [address] Creatinine [Mass/Vol] 0.86 mg/dL Normal 0.55-1.02 [facility] Comment on above: Result Comment: The validity of the calculated GFR GFRAA in patients over 70 years has not been determined. Clinical correlation is essential. Performed By: #### L 500.2500, L503.6620, L501.9520, L506.0400 #### [facility] [address] [place], [address] EST GFR - AA 81 mL/min Normal >60 [facility] Comment on above: Result Comment: Afri can Moldovan GFR Calc Performed By: #### L 500.2500, L503.6620, L501.9520, L506.0400 #### [facility] [address] [place], [address] GAP 6 Normal 5-15 [facility] Comment on above: Performed By: #### L 500.2500, L503.6620, L501.9520, L506.0400 #### [facility] [address] [place], [address] GFR/1.73 sq M.predicted among non-blacks MDRD (S/P/Bld) [Vol rate/Area] 67 mL/min/{1.73_m2} Normal >60 [facility] Comment on above: Result Comment: Non- GFR Calc Performed By: #### L 500.2500, L503.6620, L501.9520, L506.0400 #### [facility] [address] [place], [address] Glucose [Mass/Vol] 109 mg/dL High 74-106 [facility] Comment on above: Result Comment: Fast ing Glucose result from 100 to 125 mg/dL suggests IMPAIRED HOMEOSTASIS per A.D.A. criteria. Performed By: #### L 500.2500, L503.6620, L501.9520, L506.0400 #### [facility] [address] [place], [address] Potassium [Moles/Vol] 4.1 mmol/L Normal 3.5-5.1 [facility] Comment on above: Performed By: #### L 500.2500, L503.6620, L501.9520, L506.0400 #### [facility] [address] [place], [address] Sodium [Moles/Vol] 136 mmol/L Normal 136-145 [facility] Comment on above: Performed By: #### L 500.2500, L503.6620, L501.9520, L506.0400 #### [facility] [address] [place], [address] Urea nitrogen [Mass/Vol] 13 mg/dL Normal 7-18 [facility] Comment on above: Performed By: #### L 500.2500, L503.6620, L501.9520, L506.0400 #### [facility] [place], [address] Blood urea nitrogen (BUN)/cr eatinine ratioOrdered By: Jacquie Coleman on 01-11-2025 Urea nitrogen/Creatinine [Mass ratio] 15.2 mg/mg 10-20 [facility] Carbon dioxide measurementOr dered By: Jacquie Coleman on 01-11-2025 CO2 [Moles/Vol] 27.0 mmol/L 21.0-32.0 [facility] Chloride measurementOrdered By: Jacquie Coleman on 01-11-2025 Chloride [Moles/Vol] 103 mmol/L 98-107 [facility] Direct serum free thyroxine (FT4) measurementOrdered By: Jacquie Coleman on 01-11-2025 Free T4 [Mass/Vol] 0.92 ng/dL 0.76-1.46 [facility] Estimated glomerular filtrat ion rate (GFR) AmericanOrdered By: Jacquie Coleman on 01-11-2025 Estimated GFR (MDRD) Amer 81 mL/min >60 [facility] Comment on above: GFR Calc Glomerular filtration rate ( GFR) estimationOrdered By: Jacquie Coleman on 01-11-2025 Estimated GFR (MDRD) Non-Af Amer 67 mL/min >60 [facility] Comment on above: Non- GFR Calc GFR/1.73 sq M.predicted among non-blacks MDRD (S/P/Bld) [Vol rate/Area] 67 mL/min/{1.73_m2} >60 [facility] Comment on above: Non- GFR Calc Glucose measurementOrdered B y: Jacquie Coleman on 01-11-2025 Glucose [Mass/Vol] 109 mg/dL High 74-106 [facility] Comment on above: Fasting Glucose resu lt from 100 to 125 mg/dL suggests IMPAIRED HOMEOSTASIS per A.D.A. criteria. Potassium measurementOrdered By: Jacquie Coleman on 02-18-2025 Potassium [Moles/Vol] 4.1 mmol/L 3.5-5.1 [facility] Serum anion gap measurementO rdered By: Jacquie Coleman on 01-11-2025 Anion gap [Moles/Vol] 6 mmol/L 5-15 [facility] Serum or plasma calcium balaji urement (mass/volume)Ordered By: Jacquie Coleman on 01-11-2025 Calcium [Mass/Vol] 9.6 mg/dL 8.5-10.1 [facility] Serum or plasma creatinine m easurement (mass/volume)Ordered By: Jacquie Coleman on 01-11-2025 Creatinine [Mass/Vol] 0.86 mg/dL 0.55-1.02 [facility] Comment on above: The validity of the calculated GFR & GFRAA in patients over 70 years has not been determined. Clinical correlation is essential. Serum or plasma thyroid stim ulating hormone (TSH) measurement (units/volume)Ordered By: Jacquie Coleman on 01-11-2025 TSH Qn 2.860 uIU/mL 0.358-3.740 [facility] Serum or plasma urea nitroge n measurement (mass/volume)Ordered By: Jacquie Coleman on 01-11-2025 Urea nitrogen [Mass/Vol] 13 mg/dL 7-18 [facility] Sodium levelOrdered By: Atiya Coleman on 01-11-2025 Sodium [Moles/Vol] 136 mmol/L 136-145 [facility] T4 Free Directon 01-11-2025 T4 FREE DIRECT 0.92 ng/dL Normal 0.76-1.46 [facility] Comment on above: Performed By: #### L 500.2500, L503.6620, L501.9520, L506.0400 #### [facility] [address] [place], [place], [id number] TSH QnOrdered By: Jacquie govea on 01-11-2025 Thyroid Stimulating Hormone (TSH) 2.860 uIU/mL 0.358-3.740 [facility] Thyroid Stim Hormone (TSH)on 01-11-2025 TSH 2.860 uIU/mL Normal 0.358-3.740 [facility] Comment on above: Performed By: #### L 500.2500, L503.6620, L501.9520, L506.0400 #### [facility] [address] [place], [address] Absolute neutrophil countOrd ered By: Edda Kian on 12-31-2024 Neutrophils (Bld) [#/Vol] 3.6 10*3/uL 2.0-7.7 [facility] Albumin to globulin ratioOrd ered By: [facility] Kian on 12-31-2024 Albumin/Globulin [Mass ratio] 0.8 {ratio} Low 0.9-2.4 [facility] Basophil percentageOrdered B y: Edda Kian on 12-31-2024 Basophils/100 WBC (Bld) 0.8 % 0-1 [facility] Bilirubin, totalOrdered By: Edda Kian on 12-31-2024 Bilirubin [Mass/Vol] 0.30 mg/dL 0.20-1.00 [facility] Comment on above: For patients on eltr ombopag therapy, use of Dimension [place] TBIL is not recommended. Blood urea nitrogen (BUN)/cr eatinine ratioOrdered By: Edda Kian on 12-31-2024 Urea nitrogen/Creatinine [Mass ratio] 16.7 mg/mg 10-20 [facility] CBC W/Diff, Automatedon Erythrocyte distribution width (RBC) [Ratio] 13.7 % Normal 11.6-14.6 [facility] Comment on above: Performed By: #### L 500.4050, L100.0100, L506.1000, L500.4100 #### [facility] [address] [place], [address] Platelet mean volume (Bld) [Entitic vol] 10.3 fL Normal 6.2-12.0 [facility] Comment on above: Performed By: #### L 500.4050, L100.0100, L506.1000, L500.4100 #### [facility] [address] [place], [address] Carbon dioxide measurementOr dered By: Edda Langston on 12-31-2024 CO2 [Moles/Vol] 26.0 mmol/L 21.0-32.0 [facility] Chloride measurementOrdered By: Edda Langston on 12-31-2024 Chloride [Moles/Vol] 108 mmol/L High 98-107 [facility] Comprehensive Metabolic Prof ilon 12-31-2024 Albumin [Mass/Vol] 3.3 g/dL Normal 3.2-5.0 [facility] Comment on above: Performed By: #### L 500.4050, L100.0100, L506.1000, L500.4100 #### [facility] [address] [place], [address] Albumin/Globulin [Mass ratio] 0.8 {ratio} Low 0.9-2.4 [facility] Comment on above: Performed By: #### L 500.4050, L100.0100, L506.1000, L500.4100 #### [facility] [address] [place], [address] ALK P 74 U/L Normal 45-117 [facility] Comment on above: Performed By: #### L 500.4050, L100.0100, L506.1000, L500.4100 #### [facility] [address] [place], [address] ALT [Catalytic activity/Vol] 26 U/L Normal 13-56 [facility] Comment on above: Performed By: #### L 500.4050, L100.0100, L506.1000, L500.4100 #### [facility] [address] [place], [address] AST [Catalytic activity/Vol] 19 U/L Normal 15-37 [facility] Comment on above: Performed By: #### L 500.4050, L100.0100, L506.1000, L500.4100 #### [facility] [address] [place], [address] Bilirubin [Mass/Vol] 0.30 mg/dL Normal 0.20-1.00 [facility] Comment on above: Result Comment: For patients on eltrombopag therapy, use of Dimension [place]cker[place] TBIL is not recommended. Performed By: #### L 500.4050, L100.0100, L506.1000, L500.4100 #### [facility] [address] [place], [address] BUN/CRE 16.7 RATIO Normal 10-20 [facility] Comment on above: Performed By: #### L 500.4050, L100.0100, L506.1000, L500.4100 #### [facility] [address] [place], [address] CA,Total 8.8 mg/dL Normal 8.5-10.1 [facility] Comment on above: Performed By: #### L 500.4050, L100.0100, L506.1000, L500.4100 #### [facility] [address] [place], [address] Chloride [Moles/Vol] 108 mmol/L High 98-107 [facility] Comment on above: Performed By: #### L 500.4050, L100.0100, L506.1000, L500.4100 #### [facility] [address] [place], [address] CO2 [Moles/Vol] 26.0 mmol/L Normal 21.0-32.0 [facility] Comment on above: Performed By: #### L 500.4050, L100.0100, L506.1000, L500.4100 #### [facility] [address] [place], [address] Creatinine [Mass/Vol] 0.78 mg/dL Normal 0.55-1.02 [facility] Comment on above: Result Comment: The validity of the calculated GFR GFRAA in patients over 70 years has not been determined. Clinical correlation is essential. Performed By: #### L 500.4050, L100.0100, L506.1000, L500.4100 #### [facility] [address] [place], [address] ECRCL 50.66 ml/min Normal [facility] Comment on above: Performed By: #### L 500.4050, L100.0100, L506.1000, L500.4100 #### [facility] [address] [place], [address] EST GFR - AA 91 mL/min Normal >60 [facility] Comment on above: Result Comment: Afri can Moldovan GFR Calc Performed By: #### L 500.4050, L100.0100, L506.1000, L500.4100 #### [facility] [address] [place], [address] GAP 6 Normal 5-15 [facility] Comment on above: Performed By: #### L 500.4050, L100.0100, L506.1000, L500.4100 #### [facility] [address] [place], [address] GFR/1.73 sq M.predicted among non-blacks MDRD (S/P/Bld) [Vol rate/Area] 75 mL/min/{1.73_m2} Normal >60 [facility] Comment on above: Result Comment: Non- GFR Calc Performed By: #### L 500.4050, L100.0100, L506.1000, L500.4100 #### [facility] [address] [place], [address] Globulin (S) [Mass/Vol] 4.0 g/dL Normal 2.2-4.2 [facility] Comment on above: Performed By: #### L 500.4050, L100.0100, L506.1000, L500.4100 #### [facility] [address] [place], [address] Glucose [Mass/Vol] 106 mg/dL Normal 74-106 [facility] Comment on above: Result Comment: Fast ing Glucose result from 100 to 125 mg/dL suggests IMPAIRED HOMEOSTASIS per A.D.A. criteria. Performed By: #### L 500.4050, L100.0100, L506.1000, L500.4100 #### [facility] [address] [place], [address] Potassium [Moles/Vol] 3.7 mmol/L Normal 3.5-5.1 [facility] Comment on above: Performed By: #### L 500.4050, L100.0100, L506.1000, L500.4100 #### [facility] [address] [place], [address] Sodium [Moles/Vol] 139 mmol/L Normal 136-145 [facility] Comment on above: Performed By: #### L 500.4050, L100.0100, L506.1000, L500.4100 #### [facility] [address] [place], [address] T PROT 7.3 g/dL Normal 6.4-8.2 [facility] Comment on above: Performed By: #### L 500.4050, L100.0100, L506.1000, L500.4100 #### [facility] [address] [place], [address] Urea nitrogen [Mass/Vol] 13 mg/dL Normal 7-18 [facility] Comment on above: Performed By: #### L 500.4050, L100.0100, L506.1000, L500.4100 #### [facility] [address] [place], [address] Discharge Instructionon 02-0 Discharge Instruction [facility] Medical Records Department [address] [place] [address] Instructions for Home/Discharge Instructions 12/31/24 1723 MR#: [id number] Acct: [id number] Name: AL LEWIS Rep #: [id number] : 1940 84 From: Elisabet Fishman MD [...] 81 MG tablet,chewable 81 mg PO DAILY bisoprolol-hydrochlorot hiazide 1 EACH tablet 1 tab PO DAILY Patient Comments: pt is currently on the Referrals / Follow Up: Jozef Pena MD [...] MD; Dr. Jacquie Coleman MD Signed Normal [facility] Echo Completeon 12-31-2024 Echo Complete [facility] [place] [address] Echo Complete 12/31/24 0904 MR#: [id number] Acct: [id number] Name: AL LEWIS Rep #: [id number] : 1940 84 From: Jozef Pena MD Attending Dr: Dr. Elisabet Fishman MD Status: AD M KARLA Ordering Dr: Edda Langston MD Date: 12/31/24 Location: [facility] Sex: F C Admitted: 12/30/24 Reason [...] Langston Referring Physician: Dwight Patricia Performed By: Jesis Trejo RDCS 12/31/24 1637 Date Jozef Pena MD CC: Dr. Dwight Patricia DO; Dr. Edda Langston MD; Dr. Jacquie Coleman MD; Dr. Elisabet Fishman MD Date Dictated: 12/31/24903 Date Transcribed: 12/31/241636 Hospitalist Medical Director: Signed Normal [facility] Eosinophil percentageOrdered By: Edda Langston on 12-31-2024 Eosinophils/100 WBC (Bld) 2.0 % 0-5 [facility] Erythrocyte distribution wid th (RBC) [Ratio]Ordered By: Edda Langston on 12-31-2024 Erythrocyte distribution width (RBC) [Entitic vol] 44.9 fL High 35.1-43.9 [facility] Erythrocyte distribution wid th ratioOrdered By: Edda Langston on 12-31-2024 Erythrocyte distribution width (RBC) [Ratio] 13.7 % 11.6-14.6 [facility] Estimated glomerular filtrat ion rate (GFR) AmericanOrdered By: Edda Langston on 12-31-2024 Estimated GFR (MDRD) Amer 91 mL/min >60 [facility] Comment on above: GFR Calc Estimation of creatinine jenniffer aranceOrdered By: Edda Langston on 12-31-2024 Estimated Creatinine Clearance Calc 50.66 ml/min [facility] Glomerular filtration rate ( GFR) estimationOrdered By: Edda Langston on 12-31-2024 Estimated GFR (MDRD) Non-Af Amer 75 mL/min >60 [facility] Comment on above: Non- GFR Calc Glucose measurementOrdered B y: Edda Langston on 12-31-2024 Glucose [Mass/Vol] 106 mg/dL 74-106 [facility] Comment on above: Fasting Glucose resu lt from 100 to 125 mg/dL suggests IMPAIRED HOMEOSTASIS per A.D.A. criteria. Hematocrit Auto (Bld) [Volum e fraction]Ordered By: Edda Langston on 12-31-2024 Hematocrit (Bld) [Volume fraction] 39.8 % 37-47 [facility] Hemoglobin measurementOrdere d By: Edda Langston on 12-31-2024 Hemoglobin (Bld) [Mass/Vol] 13.3 g/dL 12.0-15.0 [facility] Immature granulocytes/100 WB C Auto (Bld)Ordered By: Edda Langston on 12-31-2024 Immature granulocytes/100 WBC (Bld) 0.300 % 0.0-0.9 [facility] Comment on above: IG% - Immature Granu locytes (promyelocytes, myelocytes and metamyelocytes) > 1% indicates that a LEFT SHIFT is Present. L501.4020on 12-31-2024 TROPONIN-I HS 31 pg/mL Normal 3.0-54.0 [facility] Comment on above: Order Comment: 'TROP ' Serial specimen #1, #2 or #3: 3 Result Comment: Plea se Note: New Test Units and Gender Specific Reference Ranges. For more information see Policy Stat Procedure Ackerly High Sensitivity Troponin (TNIH) and attachments. Performed By: #### L 500.4050, L100.0100, L506.1000, L500.4100 #### [facility] [address] [place], [place], [id number] Laboratory - Chemistry and C hemistry - challengeOrdered By: Edda Langston on 12-31-2024 AST [Catalytic activity/Vol] 19 U/L 15-37 [facility] Lymphocytes Auto (Unsp spec) [#/Vol]Ordered By: Edda Kian on 12-31-2024 Lymphocytes (Bld) [#/Vol] 2.07 10*3/uL 0.83-4.51 [facility] Lymphocytes/100 WBC Auto (Un sp spec)Ordered By: Edda Langston on 12-31-2024 Lymphocytes/100 WBC (Bld) 32.1 % 19-41 [facility] M100.019on 12-31-2024 M100.019 Negative Normal [facility] Comment on above: Performed By: #### L 500.4050, L100.0100, L506.1000, L500.4100 #### [facility] [address] [place], [place], [address] MCV (mean corpuscular volume ) determinationOrdered By: Edda Langston on 12-31-2024 MCV (RBC) [Entitic vol] 89.6 fL 81-99 [facility] Mean corpuscular hemoglobin (MCH) determinationOrdered By: Edda Langston on 12-31-2024 MCH (RBC) [Entitic mass] 30.0 pg 27.0-32.0 [facility] Mean corpuscular hemoglobin concentration (MCHC) determinationOrdered By: Edda Kian on 12-31-2024 MCHC (RBC) [Mass/Vol] 33.4 g/dL 32-36 [facility] Mean platelet volume determi nationOrdered By: Edda Langston on 12-31-2024 Platelet mean volume (Bld) [Entitic vol] 10.3 fL 6.2-12.0 [facility] Monocyte percentageOrdered B y: Edda Kian on 12-31-2024 Monocytes/100 WBC (Bld) 8.2 % 0-10 [facility] Neutrophil percentageOrdered By: Edda Kian on 12-31-2024 Neutrophils/100 WBC (Bld) 56.6 % 47-70 [facility] Nucleated red blood cell per centageOrdered By: Edda Kian on 12-31-2024 Nucleated RBC/100 WBC (Bld) [Ratio] 0 % 0-5 [facility] Platelet countOrdered By: Ania Langston on 12-31-2024 Platelets (Bld) [#/Vol] 214 10*3/uL 150-450 [facility] Potassium measurementOrdered By: Edda Langston on 12-31-2024 Potassium [Moles/Vol] 3.7 mmol/L 3.5-5.1 [facility] Procalcitoninon 12-31-2024 Procalcitonin 0.05 ng/mL Normal 0.00-0.09 [facility] Comment on above: Result Comment: A procalcitonin [...] ng/mL are obtained. Performed By: #### L 500.2500, L503.6620, L501.9520, L506.0400 #### [facility] [place], [address] Procalcitonin [Mass/Vol]Orde red By: Edda Langston on 12-31-2024 Procalcitonin 0.05 ng/mL 0.00-0.09 [facility] Comment on above: A procalcitonin (PCT ) [...] 12-31-2024 RBC (Bld) [#/Vol] 4.44 10*6/uL 4.2-5.4 [facility] RESPIRATORY PANEL MOLECULARo n 12-31-2024 RP PANEL ADENOVIRUS Not Detected INFLUENZA A Not Detected INFLUENZA A (SUBTYPE H1) Not Detected INFLUENZA A (SUBTYPE H3) Not Detected INFLUENZA B Not Detected HUMAN METAPHNEUMO Not Detected PARAINFLUENZA 1 Not Detected PARAINFLUENZA 2 Not Detected PARAINFLUENZA 3 Not Detected PARAINFLUENZA 4 Not Detected RHINOVIRUS Not Detected RSV A Not Detected RSV B Not Detected Normal [facility] Comment on above: Performed By: #### L 500.4050, L100.0100, L506.1000, L500.4100 #### [facility] [address] [place], [place], [address] Serum anion gap measurementO rdered By: Edda Langston on 12-31-2024 Anion gap [Moles/Vol] 6 mmol/L 5-15 [facility] Serum globulin measurementOr dered By: Edda Langston on 12-31-2024 Globulin (S) [Mass/Vol] 4.0 g/dL 2.2-4.2 [facility] Serum or plasma alanine leal otransferase (ALT) measurementOrdered By: Edda Langston on 12-31-2024 ALT [Catalytic activity/Vol] 26 U/L 13-56 [facility] Serum or plasma albumin balaji urement (mass/volume)Ordered By: Edda Langston on 12-31-2024 Albumin [Mass/Vol] 3.3 g/dL 3.2-5.0 [facility] Serum or plasma alkaline maico sphatase measurementOrdered By: Edda Langston on 12-31-2024 ALP [Catalytic activity/Vol] 74 U/L 45-117 [facility] Serum or plasma calcium balaji urement (mass/volume)Ordered By: Edda Langston on 12-31-2024 Calcium [Mass/Vol] 8.8 mg/dL 8.5-10.1 [facility] Serum or plasma creatinine m easurement (mass/volume)Ordered By: Edda Langston on 12-31-2024 Creatinine [Mass/Vol] 0.78 mg/dL 0.55-1.02 [facility] Comment on above: The validity of the calculated GFR & GFRAA in patients over 70 years has not been determined. Clinical correlation is essential. Serum or plasma urea nitroge n measurement (mass/volume)Ordered By: Edda Langston on 12-31-2024 Urea nitrogen [Mass/Vol] 13 mg/dL 7-18 [facility] Sodium levelOrdered By: Alyu mn Kian on 12-31-2024 Sodium [Moles/Vol] 139 mmol/L 136-145 [facility] Total proteinOrdered By: Aly umn Kian on 12-31-2024 Protein [Mass/Vol] 7.3 g/dL 6.4-8.2 [facility] Troponin IOrdered By: Edda Kian on 12-31-2024 Troponin I High Sensitivity 31 pg/mL 3.0-54.0 [facility] Comment on above: Please Note: New Chinyere t Units and Gender Specific Reference Ranges. For more information see Policy Stat Procedure [place] High Sensitivity Troponin (TNIH) and attachments. White blood cell (WBC) count Ordered By: Edda Kian on 12-31-2024 WBC (Bld) [#/Vol] 6.4 10*3/uL 4.4-11.0 [facility] 12 Lead EKGon 12-30-2024 12 Lead EKG [facility] Cardiovascular Services [address] [place] [address] 12 Lead EKG 12/30/24 2303 MR#: [id number] Acct: [id number] Name: AL LEWIS Rep #: [id number] : 1940 84 From: Jozef Pena MD Attending Dr: Dr. Elisabet Fishman MD Status: SHE ACOSTA Ordering Dr: Dwight Patricia DO Date: 5 Location: [facility] Sex: F C Admitted: 12/30/24 Test [...] for LVH, may be normal variant ( [place] product ) Abnormal ECG Confirmed by JOZEF PENA MD ([id number]), state editor KEYSHA RICCI ([id number]) on 01/01/2025 8:06:11 AM Referred By: Dwight Patricia Confirmed By: JOZEF PENA MD 01/01/25 0806 Date Jozef ePna MD CC: Dr. Dwight Patricia DO; Dr. Jacquie Coleman MD; Dr. Elisabet Fishman MD Signed [facility] 12 Lead EKG [facility] Cardiovascular Services [address] [place] [address] 12 Lead EKG 12/30/242024 MR#: [id number] Acct: [id number] Name: AL LEWIS Rep #: [id number] : 1940 84 From: Jozef Pena MD Attending Dr: Dr. Elisabet Fishman MD Status: DI S KARLA Ordering Dr: Dwight Patricia DO Date: 5 Location: [facility] Sex: F C Admitted: 12/30/24 Test [...] Abnormal ECG Confirmed by JEAN CAN, JOZEF ([id number]), state editor KEYSHA RICCI ([id number]) on 01/01/2025 8:06:02 AM Referred By: Dwight Patricia Confirmed By: JOZEF PENA MD 01/01/25 0806 Date Jozef Pena MD CC: Dr. Dwight Patricia DO; Dr. Jacquie Coleman MD; Dr. Elisabet Fishman MD Signed [facility] BNP (brain natriuretic pepti de measurement)Ordered By: Dwight Patricia on 12-30-2024 Natriuretic peptide B (Bld) [Mass/Vol] 379.8 pg/mL High 0-[address] [place] [address] BNP,B-Type NATRIURETIC PEPTI Kaylah 12-30-2024 Natriuretic peptide B (Bld) [Mass/Vol] 379.8 pg/mL High 0-[address] [place] [address] Comment on above: Performed By: #### L 500.4050, L100.0100, L506.1000, L500.4100 #### [facility] [address] [place], [address] Basic Metabolic Profile (BMP )on 12-30-2024 BUN/CRE 14.4 RATIO Normal 10-20 [facility] Comment on above: Performed By: #### L 500.2500, L503.6620, L501.9520, L506.0400 #### [facility] [address] [place], [address] CA,Total 9.5 mg/dL Normal 8.5-10.1 [facility] Comment on above: Performed By: #### L 500.2500, L503.6620, L501.9520, L506.0400 #### [facility] [address] [place], [address] Chloride [Moles/Vol] 106 mmol/L Normal 98-107 [facility] Comment on above: Performed By: #### L 500.2500, L503.6620, L501.9520, L506.0400 #### [facility] [address] [place], [address] CO2 [Moles/Vol] 24.0 mmol/L Normal 21.0-32.0 [facility] Comment on above: Performed By: #### L 500.2500, L503.6620, L501.9520, L506.0400 #### [facility] [address] [place], [address] Creatinine [Mass/Vol] 0.97 mg/dL Normal 0.55-1.02 [facility] Comment on above: Result Comment: The validity of the calculated GFR GFRAA in patients over 70 years has not been determined. Clinical correlation is essential. Performed By: #### L 500.2500, L503.6620, L501.9520, L506.0400 #### [facility] [address] [place], [place], [address] ECRCL 42.31 ml/min Normal [facility] Comment on above: Performed By: #### L 500.2500, L503.6620, L501.9520, L506.0400 #### [facility] [address] [place], [address] EST GFR - AA 70 mL/min Normal >60 [facility] Comment on above: Result Comment: Afri can Moldovan GFR Calc Performed By: #### L 500.2500, L503.6620, L501.9520, L506.0400 #### [facility] [address] [place], [address] GAP 8 Normal 5-15 [facility] Comment on above: Performed By: #### L 500.2500, L503.6620, L501.9520, L506.0400 #### [facility] [address] [place], [address] GFR/1.73 sq M.predicted among non-blacks MDRD (S/P/Bld) [Vol rate/Area] 58 mL/min/{1.73_m2} Low >60 [facility] Comment on above: Result Comment: Non- GFR Calc Performed By: #### L 500.2500, L503.6620, L501.9520, L506.0400 #### [facility] [address] [place], [address] Glucose [Mass/Vol] 143 mg/dL High 74-106 [facility] Comment on above: Result Comment: Fast ing Glucose result greater than or equal to 126 mg/dL suggests DIABETES MELLITUS per A.D.A. criteria. Performed By: #### L 500.2500, L503.6620, L501.9520, L506.0400 #### [facility] [address] [place], [address] Potassium [Moles/Vol] 4.6 mmol/L Normal 3.5-5.1 [facility] Comment on above: Result Comment: Mode rate Hemolysis, Result may be falsely increased. Performed By: #### L 500.2500, L503.6620, L501.9520, L506.0400 #### [facility] [address] [place], [address] Sodium [Moles/Vol] 138 mmol/L Normal 136-145 [facility] Comment on above: Performed By: #### L 500.2500, L503.6620, L501.9520, L506.0400 #### [facility] [address] [place], [address] Urea nitrogen [Mass/Vol] 14 mg/dL Normal 7-18 [facility] Comment on above: Performed By: #### L 500.2500, L503.6620, L501.9520, L506.0400 #### [facility] [address] [place], [address] CBC W/Diff, Automatedon 02-0 6-5 Absolute Lymph 3.92 X10 3/uL Normal 0.83-4.51 [facility] Comment on above: Performed By: #### L 500.2500, L503.6620, L501.9520, L506.0400 #### [facility] [address] [place], [address] Absolute Neut 3.8 X10 3/uL Normal 2.0-7.7 [facility] Comment on above: Performed By: #### L 500.2500, L503.6620, L501.9520, L506.0400 #### [facility] [address] [place], [address] Basophils/100 WBC (Bld) 0.7 % Normal 0-1 [facility] Comment on above: Performed By: #### L 500.2500, L503.6620, L501.9520, L506.0400 #### [facility] [address] [place], [address] Eosinophils/100 WBC (Bld) 2.1 % Normal 0-5 [facility] Comment on above: Performed By: #### L 500.2500, L503.6620, L501.9520, L506.0400 #### [facility] [address] [place], [address] Erythrocyte distribution width (RBC) [Ratio] 13.7 % Normal 11.6-14.6 [facility] Comment on above: Performed By: #### L 500.2500, L503.6620, L501.9520, L506.0400 #### [facility] [address] [place], [address] Hematocrit (Bld) [Volume fraction] 44.2 % Normal 37-47 [facility] Comment on above: Performed By: #### L 500.2500, L503.6620, L501.9520, L506.0400 #### [facility] [address] [place], [address] Hemoglobin (Bld) [Mass/Vol] 14.8 g/dL Normal 12.0-15.0 [facility] Comment on above: Performed By: #### L 500.2500, L503.6620, L501.9520, L506.0400 #### [facility] [address] [place], [address] IG% 0.200 Normal 0.0-0.9 [facility] Comment on above: Result Comment: IG% - Immature Granulocytes (promyelocytes, myelocytes and metamyelocytes) > 1% indicates that a LEFT SHIFT is Present. Performed By: #### L 500.2500, L503.6620, L501.9520, L506.0400 #### [facility] [address] [place], [address] Lymphocytes/100 WBC (Bld) 45.2 % High 19-41 [facility] Comment on above: Performed By: #### L 500.2500, L503.6620, L501.9520, L506.0400 #### [facility] [address] [place], [address] MCH (RBC) [Entitic mass] 30.0 pg Normal 27.0-32.0 [facility] Comment on above: Performed By: #### L 500.2500, L503.6620, L501.9520, L506.0400 #### [facility] [address] [place], [address] MCHC (RBC) [Mass/Vol] 33.5 g/dL Normal 32-36 [facility] Comment on above: Performed By: #### L 500.2500, L503.6620, L501.9520, L506.0400 #### [facility] [address] [place], [address] MCV (RBC) [Entitic vol] 89.5 fL Normal 81-99 [facility] Comment on above: Performed By: #### L 500.2500, L503.6620, L501.9520, L506.0400 #### [facility] [address] [place], [address] Monocytes/100 WBC (Bld) 7.8 % Normal 0-10 [facility] Comment on above: Performed By: #### L 500.2500, L503.6620, L501.9520, L506.0400 #### [facility] [address] [place], [address] Neutrophils/100 WBC (Bld) 44.0 % Low 47-70 [facility] Comment on above: Performed By: #### L 500.2500, L503.6620, L501.9520, L506.0400 #### [facility] [address] [place], [address] Nucleated RBC (Bld) [#/Vol] 0 10*3/uL Normal 0-5 [facility] Comment on above: Performed By: #### L 500.2500, L503.6620, L501.9520, L506.0400 #### [facility] [address] [place], [address] Platelet mean volume (Bld) [Entitic vol] 10.3 fL Normal 6.2-12.0 [facility] Comment on above: Performed By: #### L 500.2500, L503.6620, L501.9520, L506.0400 #### [facility] [address] [place], [address] Platelets (Bld) [#/Vol] 241 10*3/uL Normal 150-450 [facility] Comment on above: Performed By: #### L 500.2500, L503.6620, L501.9520, L506.0400 #### [facility] [address] [place], [address] RBC (Bld) [#/Vol] 4.94 10*6/uL Normal 4.2-5.4 [facility] Comment on above: Performed By: #### L 500.2500, L503.6620, L501.9520, L506.0400 #### [facility] [address] [place], [address] RDW SD 44.7 fl High 35.1-43.9 [facility] Comment on above: Performed By: #### L 500.2500, L503.6620, L501.9520, L506.0400 #### [facility] [address] [place], [address] WBC (Bld) [#/Vol] 8.7 10*3/uL Normal 4.4-11.0 [facility] Comment on above: Performed By: #### L 500.2500, L503.6620, L501.9520, L506.0400 #### [facility] [address] [place], [address] CTA Chest W/WO Contraston CTA Chest W/WO Contrast [facility] [address] [place] [address] CTA Chest W/WO Contrast MR#: [id number] Acct: [id number] Name: AL LEWIS Rep #: [id number] : 1940 F 84 From: Ad Child MD PCP: Dr. Jacquie Coleman MD Status: REG ER Study: CTA Chest W/WO Contrast Date of Exam: 12/30/24 Exam# [id number] Ordering Dr: Dwight Patricia DO PROCEDURE: CTA [...] use of iterative reconstruction technique). Reading Location: [facility] CC: Dr. Dwight Patricia DO; Dr. Jacquie Coleman MD Hospitalist Medical Director: Signed Normal [facility] Chest 1 View (Portable)on Chest 1 View (Portable) [facility] [address] [place], [place] [id number] Chest 1 View (Portable) MR#: [id number] Acct: [id number] Name: AL LEWIS Rep #: [id number] : 1940 F 84 From: Ad Child MD PCP: Dr. Jacquie Coleman MD Status: REG ER Study: Chest 1 View (Portable) Date of Exam: 12/30/24 Exam# [id number] Ordering Dr: Dwight Patricia DO PROCEDURE: CHEST 1 VIEW (PORTABLE) REASON FOR EXAM: Chest pain. TECHNIQUE: Frontal view of the chest. COMPARISON: None. FINDINGS: The cardiac and mediastinal contours are normal. The lungs are clear. RAD/Chest 1 View (Portable) IMPRESSION: NEGATIVE SINGLE VIEW OF THE CHEST. Reading Location: [facility] CC: Dr. Dwight Patricia DO; Dr. Jacquie Coleman MD Hospitalist Medical Director: Signed Normal [facility] D-Dimer Quantitative (DVT/PE )on 12-30-2024 D-DIMER QUANT 0.96 FEU/ug/m Invalid Interpretation Code 0.27-0.49 [facility] Comment on above: Result Comment: D-Di cristóbal ELEVATED (>0.49): Additional studies and clinical assessments are indicated to conclude diagnosis of: Deep Vein Thrombosis (DVT) or Pulmonary Embolism (PE) [facility] Jessica Valencia. RESULTS READ BACK BY SAME. Performed By: #### L 500.4050, L100.0100, L506.1000, L500.4100 #### [facility] [address] [place], [place], [id number] D-dimer measurement for deep venous thrombosisOrdered By: Dwight Patricia on 12-30-2024 D-Dimer Quantitative (PE/DVT) 0.96 FEU/ug/m High 0.27-0.49 [facility] Comment on above: D-Dimer ELEVATED (>0 .49): Additional studies and clinicalassessments are indicated to conclude diagnosis of:Deep Vein Thrombosis (DVT) or Pulmonary Embolism (PE)CRITICAL VALUE CALLED TO [id number]/06/25 2214 Pantera Valencia.RESULTS READ BACK BY SAME. Direct serum free thyroxine (FT4) measurementOrdered By: Dwight Patricia on 12-30-2024 Free T4 [Mass/Vol] 0.85 ng/dL 0.76-1.46 [facility] Emergency Department Summary on 12-30-2024 Emergency Department Summary [facility] Medical Records Department [address] [place] [address] Emergency Department Summary 12/30/24 MR#: [id number] Acct: [id number] Name: JOSHUA,AL WEISS Rep #: [id number] : 1940 84 From: Dwight Patricia DO [...] intact Psych: Cooperative, appropriate mood and affect [facility] Medical History (Updated 12/30/24 @ 23:08 [...] CTA ordere (more content not included)... Normal [facility] H AND P Exam - Hospitaliston 12-30-2024 H&P Exam - Hospitalist [facility] Medical Records Department [address] [place] [address] H P Exam - Hospitalist 12/30/24 2307 MR#: [id number] Acct: [id number] Name: AL LEWIS ANN Rep #: [id number] : 1940 84 From: Edda Langston MD PCP: Dr. Jacquie Coleman MD Status:ADM KARLA Location: [place] [address] HPI - General General Date of Admission: 12/30/24 Date of Service: 12/30/24 Chief Complaint: Headache, irregular heart rate, palpitations. HPI Narrative The patient is an 84-year-old female with past medical history obesity, CKD stage III per GFR trending unclear subtype, GERD, hypertension, hyperlipidemia who presents to the [facility] ED on 12/30/2024 with onset on the [...] of pulmonary embolism, diffuse groundglass opacities possibly marketing representative of edema versus infection, enlarged mediastinal lymph nodes, TSH 4.410 with free T4 normal however 0.85, BNP 379.8, magnesium 2.2. In the ED patient ministered 1 L normal saline and diltiazem 10 mg IV bolus x 1. In the ED patient following diltiazem bolus converted with confirmation EKG demonstrating sinus rhythm with no acute evidence of ischemia. [facility] Medical History Obesity GERD (gastroesophageal reflux disease) [...] bisoprolol 2.5 1 tab PO DAILY heart 01/25/20 03/0 / History mg-hydrochlorothiazide 6.25 mg tablet pantoprazole 40 [...] No his (more content not included)... Normal [facility] International normalized rat io (INR) calculationOrdered By: Dwight Patricia on 12-30-2024 INR Coag (Bld) [Relative time] 0.9 {INR} [facility] L501.4020on 12-30-2024 TROPONIN-I HS 29 pg/mL Normal 3.0-54.0 [facility] Comment on above: Result Comment: Plea se Note: New Test Units and Gender Specific Reference Ranges. For more information see Policy Stat Procedure Ackerly High Sensitivity Troponin (TNIH) and attachments. Performed By: #### L 500.4050, L100.0100, L506.1000, L500.4100 #### [facility] [address] [place], [address] L501.5425on 12-30-2024 TROPONIN-I HS 17 pg/mL Normal 3.0-54.0 [facility] Comment on above: Order Comment: 1Y Result Comment: Plea se Note: New Test Units and Gender Specific Reference Ranges. For more information see Policy Stat Procedure Ackerly High Sensitivity Troponin (TNIH) and attachments. Performed By: #### L 500.2500, L503.6620, L501.9520, L506.0400 #### [facility] [address] [place], [address] Magnesiumon 12-30-2024 Magnesium [Mass/Vol] 2.2 mg/dL Normal 1.6-2.6 [facility] Comment on above: Result Comment: Mode rate Hemolysis, Result may be falsely increased. Performed By: #### L 499.0042 #### [facility] [address] [place], [address] Magnesium measurementOrdered By: Dwight Patricia on 12-30-2024 Magnesium [Mass/Vol] 2.2 mg/dL 1.6-2.6 [facility] Comment on above: Moderate Hemolysis, Result may be falsely increased. Partial Thromboplast Timeon 12-30-2024 aPTT Coag (Bld) [Time] 25.3 s Normal 24.1-36.2 [facility] Comment on above: Performed By: #### L 500.4050, L100.0100, L506.1000, L500.4100 #### [facility] [address] [place], [address] Prothrombin Time w/INRon INR Coag (PPP) [Relative time] 0.9 {INR} Normal [facility] Comment on above: Performed By: #### L 500.4050, L100.0100, L506.1000, L500.4100 #### [facility] [address] [place], [address] PT Coag (PPP) [Time] 12.8 s Normal 11.7-14.9 [facility] Comment on above: Performed By: #### L 500.4050, L100.0100, L506.1000, L500.4100 #### [facility] [address] [place], [address] Prothrombin timeOrdered By: Dwight Patricia on 12-30-2024 PT Coag (PPP) [Time] 12.8 s 11.7-14.9 [facility] Respiratory pathogens DNA an d RNA panel LISA+probe (Resp)Ordered By: Edda Langston on 12-30-2024 Respiratory Panel (PCR) [facility] [id number] By: Edda Langston on 12-30-2024 SARS-CoV-2 (COVID-19) RNA LISA+probe Ql (Unsp spec) [facility] T4 Free Directon 12-30-2024 T4 FREE DIRECT 0.85 ng/dL Normal 0.76-1.46 [facility] Comment on above: Performed By: #### L 500.2500, L503.6620, L501.9520, L506.0400 #### [facility] [address] [place], [address] TSH QnOrdered By: Dwight Hyde on 12-30-2024 Thyroid Stimulating Hormone (TSH) 4.410 uIU/mL High 0.358-3.740 [facility] Thyroid Stim Hormone (TSH)on 12-30-2024 TSH 4.410 uIU/mL High 0.358-3.740 [facility] Comment on above: Performed By: #### L 499.0042 #### [facility] [address] [place], [address] aPTT Coag (PPP) [Time]Ordere d By: Dwight Patricia on 12-30-2024 aPTT Coag (Bld) [Time] 25.3 s 24.1-36.2 [facility] CBC W/Diff, Automatedon 07-2 -2023 Absolute Lymph 1.83 X10 3/uL Normal 0.83-4.51 [facility] Comment on above: Performed By: #### L 500.4050, L100.0100, L506.1000, L500.4100 #### [facility] [address] [place], [address] Absolute Neut 3.3 X10 3/uL Normal 2.0-7.7 [facility] Comment on above: Performed By: #### L 500.4050, L100.0100, L506.1000, L500.4100 #### [facility] [address] [place], [address] Basophils/100 WBC (Bld) 0.7 % Normal 0-1 [facility] Comment on above: Performed By: #### L 500.4050, L100.0100, L506.1000, L500.4100 #### [facility] [address] [place], [address] Eosinophils/100 WBC (Bld) 2.7 % Normal 0-5 [facility] Comment on above: Performed By: #### L 500.4050, L100.0100, L506.1000, L500.4100 #### [facility] [address] [place], [address] Erythrocyte distribution width (RBC) [Ratio] 13.1 % Normal 11.6-14.6 [facility] Comment on above: Performed By: #### L 500.4050, L100.0100, L506.1000, L500.4100 #### [facility] [address] [place], [address] Hematocrit (Bld) [Volume fraction] 44.4 % Normal 37-47 [facility] Comment on above: Performed By: #### L 500.4050, L100.0100, L506.1000, L500.4100 #### [facility] [address] [place], [address] Hemoglobin (Bld) [Mass/Vol] 14.6 g/dL Normal 12.0-15.0 [facility] Comment on above: Performed By: #### L 500.4050, L100.0100, L506.1000, L500.4100 #### [facility] [address] [place], [address] IG% 0.300 Normal 0.0-0.9 [facility] Comment on above: Result Comment: IG% - Immature Granulocytes (promyelocytes, myelocytes and metamyelocytes) > 1% indicates that a LEFT SHIFT is Present. Performed By: #### L 500.4050, L100.0100, L506.1000, L500.4100 #### [facility] [address] [place], [address] Lymphocytes/100 WBC (Bld) 31.2 % Normal 19-41 [facility] Comment on above: Performed By: #### L 500.4050, L100.0100, L506.1000, L500.4100 #### [facility] [address] [place], [address] MCH (RBC) [Entitic mass] 30.1 pg Normal 27.0-32.0 [facility] Comment on above: Performed By: #### L 500.4050, L100.0100, L506.1000, L500.4100 #### [facility] [address] [place], [address] MCHC (RBC) [Mass/Vol] 32.9 g/dL Normal 32-36 [facility] Comment on above: Performed By: #### L 500.4050, L100.0100, L506.1000, L500.4100 #### [facility] [address] [place], [address] MCV (RBC) [Entitic vol] 91.5 fL Normal 81-99 [facility] Comment on above: Performed By: #### L 500.4050, L100.0100, L506.1000, L500.4100 #### [facility] [address] [place], [address] Monocytes/100 WBC (Bld) 9.0 % Normal 0-10 [facility] Comment on above: Performed By: #### L 500.4050, L100.0100, L506.1000, L500.4100 #### [facility] [address] [place], [address] Neutrophils/100 WBC (Bld) 56.1 % Normal 47-70 [facility] Comment on above: Performed By: #### L 500.4050, L100.0100, L506.1000, L500.4100 #### [facility] [address] [place], [address] Nucleated RBC (Bld) [#/Vol] 0 10*3/uL Normal 0-5 [facility] Comment on above: Performed By: #### L 500.4050, L100.0100, L506.1000, L500.4100 #### [facility] [address] [place], [address] Platelet mean volume (Bld) [Entitic vol] 10.2 fL Normal 6.2-12.0 [facility] Comment on above: Performed By: #### L 500.4050, L100.0100, L506.1000, L500.4100 #### [facility] [address] [place], [address] Platelets (Bld) [#/Vol] 258 10*3/uL Normal 150-450 [facility] Comment on above: Performed By: #### L 500.4050, L100.0100, L506.1000, L500.4100 #### [facility] [address] [place], [address] RBC (Bld) [#/Vol] 4.85 10*6/uL Normal 4.2-5.4 [facility] Comment on above: Performed By: #### L 500.4050, L100.0100, L506.1000, L500.4100 #### [facility] [address] [place], [address] RDW SD 44.5 fl High 35.1-43.9 [facility] Comment on above: Performed By: #### L 500.4050, L100.0100, L506.1000, L500.4100 #### [facility] [address] [place], [address] WBC (Bld) [#/Vol] 5.9 10*3/uL Normal 4.4-11.0 [facility] Comment on above: Performed By: #### L 500.4050, L100.0100, L506.1000, L500.4100 #### [facility] [address] [place], [address] Comprehensive Metabolic Prof [facility] 06-15-2024 Albumin [Mass/Vol] 3.7 g/dL Normal 3.2-5.0 [facility] Comment on above: Performed By: #### L 500.4050, L100.0100, L506.1000, L500.4100 #### [facility] [address] [place], [address] Albumin/Globulin [Mass ratio] 0.9 {ratio} Normal 0.9-2.4 [facility] Comment on above: Performed By: #### L 500.4050, L100.0100, L506.1000, L500.4100 #### [facility] [address] [place], [address] ALK P 93 U/L Normal 45-117 [facility] Comment on above: Performed By: #### L 500.4050, L100.0100, L506.1000, L500.4100 #### [facility] [address] [place], [address] ALT [Catalytic activity/Vol] 28 U/L Normal 13-56 [facility] Comment on above: Performed By: #### L 500.4050, L100.0100, L506.1000, L500.4100 #### [facility] [address] [place], [address] AST [Catalytic activity/Vol] 25 U/L Normal 15-37 [facility] Comment on above: Performed By: #### L 500.4050, L100.0100, L506.1000, L500.4100 #### [facility] [address] [place], [address] Bilirubin [Mass/Vol] 0.60 mg/dL Normal 0.20-1.00 [facility] Comment on above: Result Comment: For patients on eltrombopag therapy, use of Dimension Ackerly TBIL is not recommended. Performed By: #### L 500.4050, L100.0100, L506.1000, L500.4100 #### [facility] [address] [place], [address] BUN/CRE 13.6 RATIO Normal 10-20 [facility] Comment on above: Performed By: #### L 500.4050, L100.0100, L506.1000, L500.4100 #### [facility] [address] [place], [address] CA,Total 9.5 mg/dL Normal 8.5-10.1 [facility] Comment on above: Performed By: #### L 500.4050, L100.0100, L506.1000, L500.4100 #### [facility] [address] [place], [address] Chloride [Moles/Vol] 106 mmol/L Normal 98-107 [facility] Comment on above: Performed By: #### L 500.4050, L100.0100, L506.1000, L500.4100 #### [facility] [address] [place], [address] CO2 [Moles/Vol] 29.0 mmol/L Normal 21.0-32.0 [facility] Comment on above: Performed By: #### L 500.4050, L100.0100, L506.1000, L500.4100 #### [facility] [address] [place], [address] Creatinine [Mass/Vol] 0.81 mg/dL Normal 0.55-1.02 [facility] [facility] Comment on above: Result Comment: The validity of the calculated GFR GFRAA in patients over 70 years has not been determined. Clinical correlation is essential. Performed By: #### L 500.4050, L100.0100, L506.1000, L500.4100 #### [facility] [address] [place], [address] EST GFR - AA 87 mL/min Normal >60 [facility] Comment on above: Result Comment: Afri can Moldovan GFR Calc Performed By: #### L 500.4050, L100.0100, L506.1000, L500.4100 #### [facility] [address] [place], [address] GAP 5 Normal 5-15 [facility] Comment on above: Performed By: #### L 500.4050, L100.0100, L506.1000, L500.4100 #### [facility] [address] [place], [address] GFR/1.73 sq M.predicted among non-blacks MDRD (S/P/Bld) [Vol rate/Area] 72 mL/min/{1.73_m2} Normal >60 [facility] Comment on above: Result Comment: Non- GFR Calc Performed By: #### L 500.4050, L100.0100, L506.1000, L500.4100 #### [facility] [address] [place], [address] Globulin (S) [Mass/Vol] 4.2 g/dL Normal 2.2-4.2 [facility] Comment on above: Performed By: #### L 500.4050, L100.0100, L506.1000, L500.4100 #### [facility] [address] [place], [address] Glucose [Mass/Vol] 95 mg/dL Normal 74-106 [facility] Comment on above: Performed By: #### L 500.4050, L100.0100, L506.1000, L500.4100 #### [facility] [address] [place], [address] Potassium [Moles/Vol] 3.9 mmol/L Normal 3.5-5.1 [facility] Comment on above: Performed By: #### L 500.4050, L100.0100, L506.1000, L500.4100 #### [facility] [address] [place], [address] Sodium [Moles/Vol] 140 mmol/L Normal 136-145 [facility] Comment on above: Performed By: #### L 500.4050, L100.0100, L506.1000, L500.4100 #### [facility] [address] [place], [address] T PROT 7.9 g/dL Normal 6.4-8.2 [facility] Comment on above: Performed By: #### L 500.4050, L100.0100, L506.1000, L500.4100 #### [facility] [address] [place], [address] Urea nitrogen [Mass/Vol] 11 mg/dL Normal 7-18 [facility] Comment on above: Performed By: #### L 500.4050, L100.0100, L506.1000, L500.4100 #### [facility] [address] [place], [address] Lipid Profileon 06-15-2024 Cholesterol [Mass/Vol] 183 mg/dL Normal 200 [facility] Comment on above: Result Comment: <200 mg/dL Desirable 200-240 mg/dL Borderline >240 mg/dL High Risk Performed By: #### L 500.4050, L100.0100, L506.1000, L500.4100 #### [facility] [address] [place], [address] Cholesterol in HDL [Mass/Vol] 56 mg/dL Normal [facility] Comment on above: Result Comment: The drugs N-Acetylcysteine and Metamizole may falsely depress this assay. Reference Range HDL <40 mg/dL Low HDL Cholesterol HDL >or= 60 mg/dL High HDL Cholesterol Performed By: #### L 500.4050, L100.0100, L506.1000, L500.4100 #### [facility] [address] [place], [address] Cholesterol in LDL [Mass/Vol] 93 mg/dL Normal 0-130 [facility] Comment on above: Performed By: #### L 500.4050, L100.0100, L506.1000, L500.4100 #### [facility] [address] [place], [address] Cholesterol in VLDL [Mass/Vol] 34 mg/dL Normal 5-40 [facility] Comment on above: Performed By: #### L 500.4050, L100.0100, L506.1000, L500.4100 #### [facility] [address] [place], [address] Triglyceride [Mass/Vol] 169 mg/dL Normal [facility] Comment on above: Result Comment: The drugs N-Acetylcysteine and Metamizole may falsely depress this assay. Serum Triglycerides Reference Interval Normal <150 mg/dL Borderline high 150 - 199 mg/dL High 200 - 499 mg/dL Very High > or = 500 mg/dL Performed By: #### L 500.4050, L100.0100, L506.1000, L500.4100 #### [facility] [address] [place], [address] Vitamin D,25 Hydroxyon 06-15 Vitamin D 25-OH 35.1 ng/mL Normal [facility] Comment on above: Result Comment: Cheryl min D 25(OH) Status Range Deficiency <20 ng/mL (50nmol/L) Insufficiency 20 - 30 ng/mL (50 - 75 nmol/L) Sufficiency 30 - 100 ng/mL (75 - 250 nmol/L) Toxicity >100 ng/mL (>250 nmol/L) Performed By: #### L 500.4050, L100.0100, L506.1000, L500.4100 #### [facility] [address] [place], [address] Absolute lymphocyte countOrd ered By: Jacquie Coleman on 11-27-2023 Lymphocytes Auto (Unsp spec) [#/Vol] 1.91 10*3/uL 0.83-4.51 [facility] Basophil percentageOrdered B y: Jacquie Coleman on 11-27-2023 Basophils/100 WBC (Bld) 0.7 % 0-1 [facility] Chloride [Moles/Vol] 106 mmol/L 98-107 [facility] Eosinophils/100 WBC (Bld) 3.3 % 0-5 [facility] Glucose [Mass/Vol] 107 mg/dL 74-106 [facility] Comment on above: Fasting Glucose resu lt from 100 to 125 mg/dL suggests IMPAIRED HOMEOSTASIS per A.D.A. criteria. Neutrophils (Bld) [#/Vol] 3.4 10*3/uL 2.0-7.7 [facility] Neutrophils/100 WBC (Bld) 56.0 % 47-70 [facility] Potassium [Moles/Vol] 3.3 mmol/L 3.5-5.1 [facility] Sodium [Moles/Vol] 141 mmol/L 136-145 [facility] WBC (Bld) [#/Vol] 6.1 10*3/uL 4.4-11.0 [facility] Blood erythrocytes count (nu mber/volume)Ordered By: Jacquie Coleman on 11-27-2023 RBC (Bld) [#/Vol] 3.27 10*6/uL 4.2-5.4 [facility] Blood hemoglobin measurement (mass/volume)Ordered By: Jacquie Coleman on 11-27-2023 Hemoglobin (Bld) [Mass/Vol] 10.0 g/dL 12.0-15.0 [facility] Blood lymphocytes/100 leukoc ytesOrdered By: Jacquie Coleman on 11-27-2023 Lymphocytes/100 WBC (Bld) 31.2 % 19-41 [facility] Blood monocytes/100 leukocyt esOrdered By: Jacquie Coleman on 11-27-2023 Monocytes/100 WBC (Bld) 8.3 % 0-10 [facility] Blood platelet mean volumeOr dered By: Jacquie Coleman on 11-27-2023 Platelet mean volume (Bld) [Entitic vol] 10.3 fL 6.2-12.0 [facility] Determination of erythrocyte mean corpuscular volume (MCV)Ordered By: Jacquie Coleman on 11-27-2023 MCV (RBC) [Entitic vol] 95.1 fL 81-99 [facility] Hematocrit Auto (Bld) [Volum e fraction]Ordered By: Jacquie Coleman on 11-27-2023 Hematocrit (Bld) [Volume fraction] 31.1 % 37-47 [facility] Hemoglobin in reticulocytes (mass per reticulocyte)Ordered By: Jacquie Coleman on 11-27-2023 Hemoglobin (Reticulocytes) [Entitic mass] 28.1 pg 30-35 [facility] - Chemistry and C hemistry - challengeOrdered By: Jacquie Coleman on 11-27-2023 CO2 [Moles/Vol] 29.0 mmol/L 21.0-32.0 [facility] Urea nitrogen/Creatinine [Mass ratio] 11.9 mg/mg 10-20 [facility] - Hematology and Cell countsOrdered By: Jacquie Coleman on 11-27-2023 Erythrocyte distribution width (RBC) [Entitic vol] 50.4 fL 35.1-43.9 [facility] Erythrocyte distribution width (RBC) [Ratio] 15.0 % 11.6-14.6 [facility] Immature granulocytes/100 WBC (Bld) 0.500 % 0.0-0.9 [facility] Comment on above: IG% - Immature Granu locytes (promyelocytes, myelocytes and metamyelocytes) > 1% indicates that a LEFT SHIFT is Present. MCH (RBC) [Entitic mass] 30.6 pg 27.0-32.0 [facility] Nucleated RBC/100 WBC (Bld) [Ratio] 0 % 0-5 [facility] MCHC Auto (RBC) [Mass/Vol]Or dered By: Jacquie Coleman on 11-27-2023 MCHC (RBC) [Mass/Vol] 32.2 g/dL 32-36 [facility] No Panel InformationOrdered By: Jacquie Coleman on 11-27-2023 Estimated GFR (MDRD) Amer 83 mL/min >60 [facility] Comment on above: GFR Calc Estimated GFR (MDRD) Non-Af Amer 69 mL/min >60 [facility] Comment on above: Non- GFR Calc Immature Reticulocyte Fraction 25.50 % 3.00-15.90 [facility] Reticulocyte Count 6.08 % 0.5-1.5 [facility] Platelets bldOrdered By: Lamin Coleman on 11-27-2023 Platelets (Bld) [#/Vol] 272 10*3/uL 150-450 [facility] Serum or plasma calcium balaji urement (mass/volume)Ordered By: Jacquie Coleman on 11-27-2023 Calcium [Mass/Vol] 8.6 mg/dL 8.5-10.1 [facility] Serum or plasma creatinine m easurement (mass/volume)Ordered By: Jacquie Coleman on 11-27-2023 Creatinine [Mass/Vol] 0.84 mg/dL 0.55-1.02 [facility] Comment on above: The validity of the calculated GFR & GFRAA in patients over 70 years has not been determined. Clinical correlation is essential. Serum or plasma urea nitroge n measurement (mass/volume)Ordered By: Jacquie Coleman on 11-27-2023 Urea nitrogen [Mass/Vol] 10 mg/dL 7-18 [facility] Thin prep Papanicolaou smear with manual screeningOrdered By: Jacquie Coleman on 11-27-2023 Thin prep Papanicolaou smear with manual screening 6 5-15 [facility] Absolute lymphocyte countOrd ered By: Analy Aguirre on 11-19-2023 Lymphocytes Auto (Unsp spec) [#/Vol] 3.08 10*3/uL 0.83-4.51 [facility] Basophil percentageOrdered B y: Analy Aguirre on 11-19-2023 Basophils/100 WBC (Bld) 0.6 % 0-1 [facility] Bilirubin [Mass/Vol] 0.40 mg/dL 0.20-1.00 [facility] Comment on above: For patients on eltr ombopag therapy, use of Dimension Ackerly TBIL is not recommended. Chloride [Moles/Vol] 104 mmol/L 98-107 [facility] Eosinophils/100 WBC (Bld) 0.9 % 0-5 [facility] Glucose [Mass/Vol] 121 mg/dL 74-106 [facility] Comment on above: Fasting Glucose resu lt from 100 to 125 mg/dL suggests IMPAIRED HOMEOSTASIS per A.D.A. criteria. Neutrophils (Bld) [#/Vol] 5.5 10*3/uL 2.0-7.7 [facility] Neutrophils/100 WBC (Bld) 56.9 % 47-70 [facility] Potassium [Moles/Vol] 4.1 mmol/L 3.5-5.1 [facility] Protein [Mass/Vol] 7.4 g/dL 6.4-8.2 [facility] Sodium [Moles/Vol] 135 mmol/L 136-145 [facility] WBC (Bld) [#/Vol] 9.6 10*3/uL 4.4-11.0 [facility] Blood erythrocytes count (nu mber/volume)Ordered By: Analy Aguirre on 11-19-2023 RBC (Bld) [#/Vol] 3.86 10*6/uL 4.2-5.4 [facility] Blood hemoglobin measurement (mass/volume)Ordered By: Analy Aguirre on 11-19-2023 Hemoglobin (Bld) [Mass/Vol] 11.5 g/dL 12.0-15.0 [facility] Blood lymphocytes/100 leukoc ytesOrdered By: Analy Aguirre on 11-19-2023 Lymphocytes/100 WBC (Bld) 32.0 % 19-41 [facility] Blood monocytes/100 leukocyt esOrdered By: Analy Aguirre on 11-19-2023 Monocytes/100 WBC (Bld) 9.3 % 0-10 [facility] Blood platelet mean volumeOr dered By: Analy Aguirre on 11-19-2023 Platelet mean volume (Bld) [Entitic vol] 10.1 fL 6.2-12.0 [facility] Determination of erythrocyte mean corpuscular volume (MCV)Ordered By: Analy Aguirre on 11-19-2023 MCV (RBC) [Entitic vol] 89.4 fL 81-99 [facility] Hematocrit Auto (Bld) [Volum e fraction]Ordered By: Analy Aguirre on 11-19-2023 Hematocrit (Bld) [Volume fraction] 34.5 % 37-47 [facility] - Chemistry and C hemistry - challengeOrdered By: Analy Aguirre on 11-19-2023 ALP [Catalytic activity/Vol] 77 U/L 45-117 [facility] ALT [Catalytic activity/Vol] 27 U/L 13-56 [facility] CO2 [Moles/Vol] 23.0 mmol/L 21.0-32.0 [facility] Globulin (S) [Mass/Vol] 3.8 g/dL 2.2-4.2 [facility] Urea nitrogen/Creatinine [Mass ratio] 31.6 mg/mg 10-20 [facility] - Hematology and Cell countsOrdered By: Analy Aguirre on 11-19-2023 Erythrocyte distribution width (RBC) [Entitic vol] 45.9 fL 35.1-43.9 [facility] Erythrocyte distribution width (RBC) [Ratio] 14.2 % 11.6-14.6 [facility] Immature granulocytes/100 WBC (Bld) 0.300 % 0.0-0.9 [facility] Comment on above: IG% - Immature Granu locytes (promyelocytes, myelocytes and metamyelocytes) > 1% indicates that a LEFT SHIFT is Present. MCH (RBC) [Entitic mass] 29.8 pg 27.0-32.0 [facility] Nucleated RBC/100 WBC (Bld) [Ratio] 0 % 0-5 [facility] Lower GI hemoglobin IA Ql (S tl)Ordered By: Analy Aguirre on 11-19-2023 Stool Occult Blood (CRISTIAN) Positive [facility] MCHC Auto (RBC) [Mass/Vol]Or dered By: Anlay Aguirre on 11-19-2023 MCHC (RBC) [Mass/Vol] 33.3 g/dL 32-36 [facility] No Panel InformationOrdered By: Analy Aguirre on 11-19-2023 Estimated Creatinine Clearance Calc 37.88 ml/min [facility] Estimated GFR (MDRD) Amer 78 mL/min >60 [facility] Comment on above: GFR Calc Estimated GFR (MDRD) Non-Af Amer 65 mL/min >60 [facility] Comment on above: Non- GFR Calc Troponin I High Sensitivity 21 pg/mL 3.0-54.0 [facility] Comment on above: Please Note: New Chiny[place] t Units and Gender Specific Reference Ranges. For more information see Policy Stat Procedure Ackerly High Sensitivity Troponin (TNIH) and attachments. Platelets bldOrdered By: Antonina Aguirre on 11-19-2023 Platelets (Bld) [#/Vol] 240 10*3/uL 150-450 [facility] Serum or plasma albumin balaji urement (mass/volume)Ordered By: Analy Aguirre on 11-19-2023 Albumin [Mass/Vol] 3.6 g/dL 3.2-5.0 [facility] Serum or plasma albumin/glob ulin mass ratioOrdered By: Analy Aguirre on 11-19-2023 Albumin/Globulin [Mass ratio] 0.9 {ratio} 0.9-2.4 [facility] Serum or plasma calcium balaji urement (mass/volume)Ordered By: Analy Aguirre on 11-19-2023 Calcium [Mass/Vol] 9.3 mg/dL 8.5-10.1 [facility] Serum or plasma creatinine m easurement (mass/volume)Ordered By: Analy Aguirre on 11-19-2023 Creatinine [Mass/Vol] 0.89 mg/dL 0.55-1.02 [facility] Comment on above: The validity of the calculated GFR & GFRAA in patients over 70 years has not been determined. Clinical correlation is essential. Serum or plasma urea nitroge n measurement (mass/volume)Ordered By: Analy Aguirre on 11-19-2023 Urea nitrogen [Mass/Vol] 28 mg/dL 7-18 [facility] Thin prep Papanicolaou smear with manual screeningOrdered By: Analy Aguirre on 11-19-2023 Thin prep Papanicolaou smear with manual screening 20 U/L 15-37 [facility] Thin prep Papanicolaou smear with manual screening 8 5-15 [facility] Absolute lymphocyte countOrd ered By: Jacquie Coleman on 09-22-2023 Lymphocytes Auto (Unsp spec) [#/Vol] 2.17 10*3/uL 0.83-4.51 [facility] Basophil percentageOrdered B y: Jacquie Coleman on 09-22-2023 Basophils/100 WBC (Bld) 1.0 % 0-1 [facility] Bilirubin [Mass/Vol] 0.70 mg/dL 0.20-1.00 [facility] Comment on above: For patients on eltr ombopag therapy, use of Dimension [place] TBIL is not recommended. Chloride [Moles/Vol] 105 mmol/L 98-107 [facility] Cholesterol [Mass/Vol] 179 mg/dL <200 [facility] Comment on above: <200 mg/dL Desirable 200-240 mg/dL Borderline >240 mg/dL High Risk Eosinophils/100 WBC (Bld) 3.6 % 0-5 [facility] Glucose [Mass/Vol] 95 mg/dL 74-106 [facility] Neutrophils (Bld) [#/Vol] 2.9 10*3/uL 2.0-7.7 [facility] Neutrophils/100 WBC (Bld) 49.2 % 47-70 [facility] Potassium [Moles/Vol] 3.8 mmol/L 3.5-5.1 [facility] Protein [Mass/Vol] 7.4 g/dL 6.4-8.2 [facility] Sodium [Moles/Vol] 139 mmol/L 136-145 [facility] Triglyceride [Mass/Vol] 171 mg/dL <199 [facility] Comment on above: The drugs N-Acetylcy steine and Metamizole may falsely depress this assay.Serum Triglycerides Reference Interval Normal <150 mg/dL Borderline high 150 - 199 mg/dL High 200 - 499 mg/dL Very High > or = 500 mg/dL WBC (Bld) [#/Vol] 5.8 10*3/uL 4.4-11.0 [facility] Blood erythrocytes count (nu mber/volume)Ordered By: Jacquie Coleman on 09-22-2023 RBC (Bld) [#/Vol] 4.81 10*6/uL 4.2-5.4 [facility] Blood hemoglobin measurement (mass/volume)Ordered By: Jacquie Coleman on 09-22-2023 Hemoglobin (Bld) [Mass/Vol] 14.3 g/dL 12.0-15.0 [facility] Blood lymphocytes/100 leukoc ytesOrdered By: Jacquie Coleman on 09-22-2023 Lymphocytes/100 WBC (Bld) 37.2 % 19-41 [facility] Blood monocytes/100 leukocyt esOrdered By: Jacquie Coleman on 09-22-2023 Monocytes/100 WBC (Bld) 8.7 % 0-10 [facility] Blood platelet mean volumeOr dered By: Jacquie Coleman on 09-22-2023 Platelet mean volume (Bld) [Entitic vol] 10.7 fL 6.2-12.0 [facility] Determination of erythrocyte mean corpuscular volume (MCV)Ordered By: Jacquie Coleman on 09-22-2023 MCV (RBC) [Entitic vol] 91.3 fL 81-99 [facility] Hematocrit Auto (Bld) [Volum e fraction]Ordered By: Jacquie Coleman on 09-22-2023 Hematocrit (Bld) [Volume fraction] 43.9 % 37-47 [facility] - Chemistry and C hemistry - challengeOrdered By: Jacquie Coleman on 09-22-2023 ALP [Catalytic activity/Vol] 85 U/L 45-117 [facility] ALT [Catalytic activity/Vol] 27 U/L 13-56 [facility] CO2 [Moles/Vol] 28.0 mmol/L 21.0-32.0 [facility] Globulin (S) [Mass/Vol] 3.8 g/dL 2.2-4.2 [facility] Urea nitrogen/Creatinine [Mass ratio] 16.8 mg/mg 10-20 [facility] - Hematology and Cell countsOrdered By: Jacquie Coleman on 09-22-2023 Erythrocyte distribution width (RBC) [Entitic vol] 46.8 fL 35.1-43.9 [facility] Erythrocyte distribution width (RBC) [Ratio] 13.8 % 11.6-14.6 [facility] Immature granulocytes/100 WBC (Bld) 0.300 % 0.0-0.9 [facility] Comment on above: IG% - Immature Granu locytes (promyelocytes, myelocytes and metamyelocytes) > 1% indicates that a LEFT SHIFT is Present. MCH (RBC) [Entitic mass] 29.7 pg 27.0-32.0 [facility] Nucleated RBC/100 WBC (Bld) [Ratio] 0 % 0-5 [facility] MCHC Auto (RBC) [Mass/Vol]Or dered By: Jacquie Coleman on 09-22-2023 MCHC (RBC) [Mass/Vol] 32.6 g/dL 32-36 [facility] No Panel InformationOrdered By: Jacquie Coleman on 09-22-2023 Estimated GFR (MDRD) Amer 92 mL/min >60 [facility] Comment on above: GFR Calc Estimated GFR (MDRD) Non-Af Amer 76 mL/min >60 [facility] Comment on above: Non- GFR Calc Vitamin D 25-Hydroxy 31.8 ng/mL [facility] Comment on above: Vitamin D 25(OH) Sta tus Range Deficiency <20 ng/mL (50nmol/L) Insufficiency 20 - 30 ng/mL (50 - 75 nmol/L) Sufficiency 30 - 100 ng/mL (75 - 250 nmol/L) Toxicity >100 ng/mL (>250 nmol/L) Platelets bldOrdered By: Lamin Coleman on 09-22-2023 Platelets (Bld) [#/Vol] 235 10*3/uL 150-450 [facility] Serum or plasma albumin balaji urement (mass/volume)Ordered By: Jacquie Coleman on 09-22-2023 Albumin [Mass/Vol] 3.6 g/dL 3.2-5.0 [facility] Serum or plasma albumin/glob ulin mass ratioOrdered By: Jacquie Coleman on 09-22-2023 Albumin/Globulin [Mass ratio] 0.9 {ratio} 0.9-2.4 [facility] Serum or plasma calcium balaji urement (mass/volume)Ordered By: Jacquie Coleman on 09-22-2023 Calcium [Mass/Vol] 9.1 mg/dL 8.5-10.1 [facility] Serum or plasma cholesterol in HDL measurement (mass/volume)Ordered By: Jacquie Coleman on 09-22-2023 Cholesterol in HDL [Mass/Vol] 54 mg/dL >40 [facility] Comment on above: The drugs N-Acetylcy steine and Metamizole may falsely depress this assay. Reference Range HDL <40 mg/dL Low HDL Cholesterol HDL >or= 60 mg/dL High HDL Cholesterol Serum or plasma cholesterol in VLDL measurement (mass/volume)Ordered By: Jacquie Coleman on 09-22-2023 Cholesterol in VLDL [Mass/Vol] 34 mg/dL 5-40 [facility] Serum or plasma creatinine m easurement (mass/volume)Ordered By: Jacquie Coleman on 09-22-2023 Creatinine [Mass/Vol] 0.77 mg/dL 0.55-1.02 [facility] Comment on above: The validity of the calculated GFR & GFRAA in patients over 70 years has not been determined. Clinical correlation is essential. Serum or plasma low density lipoprotein (LDL) cholesterol measurement (mass/volume)Ordered By: Jacquie Coleman on 09-22-2023 Cholesterol in LDL [Mass/Vol] 91 mg/dL 0-130 [facility] Serum or plasma urea nitroge n measurement (mass/volume)Ordered By: Jacquie Coleman on 09-22-2023 Urea nitrogen [Mass/Vol] 13 mg/dL 7-18 [facility] Thin prep Papanicolaou smear with manual screeningOrdered By: Jacquie Coleman on 09-22-2023 Thin prep Papanicolaou smear with manual screening 20 U/L 15-37 [facility] Thin prep Papanicolaou smear with manual screening 6 5-15 [facility] Absolute lymphocyte countOrd ered By: Dr. Coleman on 03-24-2023 Lymphocytes Auto (Unsp spec) [#/Vol] 2.21 10*3/uL 0.83-4.51 [facility] Basophil percentageOrdered B y: Dr. Coleman on 03-24-2023 Basophils/100 WBC (Bld) 0.6 % 0-1 [facility] Bilirubin [Mass/Vol] 0.60 mg/dL 0.20-1.00 [facility] Comment on above: For patients on eltr ombopag therapy, use of Dimension [place] TBIL is not recommended. Chloride [Moles/Vol] 105 mmol/L 98-107 [facility] Cholesterol [Mass/Vol] 166 mg/dL <200 [facility] Comment on above: <200 mg/dL Desirable 200-240 mg/dL Borderline >240 mg/dL High Risk Eosinophils/100 WBC (Bld) 3.7 % 0-5 [facility] Glucose [Mass/Vol] 93 mg/dL 74-106 [facility] Neutrophils (Bld) [#/Vol] 3.5 10*3/uL 2.0-7.7 [facility] Neutrophils/100 WBC (Bld) 52.8 % 47-70 [facility] Potassium [Moles/Vol] 3.9 mmol/L 3.5-5.1 [facility] Protein [Mass/Vol] 7.8 g/dL 6.4-8.2 [facility] Sodium [Moles/Vol] 140 mmol/L 136-145 [facility] Triglyceride [Mass/Vol] 182 mg/dL <199 [facility] Comment on above: The drugs N-Acetylcy steine and Metamizole may falsely depress this assay.Serum Triglycerides Reference Interval Normal <150 mg/dL Borderline high 150 - 199 mg/dL High 200 - 499 mg/dL Very High > or = 500 mg/dL WBC (Bld) [#/Vol] 6.6 10*3/uL 4.4-11.0 [facility] Blood erythrocytes count (nu mber/volume)Ordered By: Dr. Coleman on 03-24-2023 RBC (Bld) [#/Vol] 4.68 10*6/uL 4.2-5.4 [facility] Blood hemoglobin measurement (mass/volume)Ordered By: Dr. Coleman on 03-24-2023 Hemoglobin (Bld) [Mass/Vol] 14.0 g/dL 12.0-15.0 [facility] Blood lymphocytes/100 leukoc ytesOrdered By: Dr. Coleman on 03-24-2023 Lymphocytes/100 WBC (Bld) 33.6 % 19-41 [facility] Blood monocytes/100 leukocyt esOrdered By: Dr. Coleman on 03-24-2023 Monocytes/100 WBC (Bld) 8.8 % 0-10 [facility] Blood platelet mean volumeOr dered By: Dr. Coleman on 03-24-2023 Platelet mean volume (Bld) [Entitic vol] 10.5 fL 6.2-12.0 [facility] Determination of erythrocyte mean corpuscular volume (MCV)Ordered By: Dr. Coleman on 03-24-2023 MCV (RBC) [Entitic vol] 92.5 fL 81-99 [facility] Hematocrit Auto (Bld) [Volum e fraction]Ordered By: Dr. Coleman on 03-24-2023 Hematocrit (Bld) [Volume fraction] 43.3 % 37-47 [facility] Laboratory - Chemistry and C hemistry - challengeOrdered By: Dr. Coleman on 03-24-2023 ALP [Catalytic activity/Vol] 84 U/L 45-117 [facility] ALT [Catalytic activity/Vol] 28 U/L 13-56 [facility] CO2 [Moles/Vol] 29.0 mmol/L 21.0-32.0 [facility] Globulin (S) [Mass/Vol] 4.2 g/dL 2.2-4.2 [facility] Urea nitrogen/Creatinine [Mass ratio] 29.6 mg/mg 10-20 [facility] Laboratory - Hematology and Cell countsOrdered By: Dr. Coleman on 03-24-2023 Erythrocyte distribution width (RBC) [Entitic vol] 46.8 fL 35.1-43.9 [facility] Erythrocyte distribution width (RBC) [Ratio] 13.5 % 11.6-14.6 [facility] Immature granulocytes/100 WBC (Bld) 0.500 % 0.0-0.9 [facility] Comment on above: IG% - Immature Granu locytes (promyelocytes, myelocytes and metamyelocytes) > 1% indicates that a LEFT SHIFT is Present. MCH (RBC) [Entitic mass] 29.9 pg 27.0-32.0 [facility] Nucleated RBC/100 WBC (Bld) [Ratio] 0 % 0-5 [facility] MCHC Auto (RBC) [Mass/Vol]Or dered By: Dr. Coleman on 03-24-2023 MCHC (RBC) [Mass/Vol] 32.3 g/dL 32-36 [facility] No Panel InformationOrdered By: Dr. Coleman on 03-24-2023 Estimated GFR (MDRD) Amer 129 mL/min >60 [facility] Comment on above: GFR Calc Estimated GFR (MDRD) Non-Af Amer 107 mL/min >60 [facility] Comment on above: Non- GFR Calc Vitamin D 25-Hydroxy 30.5 ng/mL [facility] Comment on above: Vitamin D 25(OH) Sta tus Range Deficiency <20 ng/mL (50nmol/L) Insufficiency 20 - 30 ng/mL (50 - 75 nmol/L) Sufficiency 30 - 100 ng/mL (75 - 250 nmol/L) Toxicity >100 ng/mL (>250 nmol/L) Platelets bldOrdered By: Dr. Coleman on 03-24-2023 Platelets (Bld) [#/Vol] 245 10*3/uL 150-450 [facility] Serum or plasma albumin balaji urement (mass/volume)Ordered By: Dr. Coleman on 03-24-2023 Albumin [Mass/Vol] 3.6 g/dL 3.2-5.0 [facility] Serum or plasma albumin/glob ulin mass ratioOrdered By: Dr. Coleman on 03-24-2023 Albumin/Globulin [Mass ratio] 0.9 {ratio} 0.9-2.4 [facility] Serum or plasma calcium balaji urement (mass/volume)Ordered By: Dr. Coleman on 03-24-2023 Calcium [Mass/Vol] 9.3 mg/dL 8.5-10.1 [facility] Serum or plasma cholesterol in HDL measurement (mass/volume)Ordered By: Dr. Coleman on 03-24-2023 Cholesterol in HDL [Mass/Vol] 49 mg/dL >40 [facility] Comment on above: The drugs N-Acetylcy steine and Metamizole may falsely depress this assay. Reference Range HDL <40 mg/dL Low HDL Cholesterol HDL >or= 60 mg/dL High HDL Cholesterol Serum or plasma cholesterol in VLDL measurement (mass/volume)Ordered By: Dr. Coleman on 03-24-2023 Cholesterol in VLDL [Mass/Vol] 36 mg/dL 5-40 [facility] Serum or plasma creatinine m easurement (mass/volume)Ordered By: Dr. Coleman on 03-24-2023 Creatinine [Mass/Vol] 0.57 mg/dL 0.55-1.02 [facility] Comment on above: The validity of the calculated GFR & GFRAA in patients over 70 years has not been determined. Clinical correlation is essential. Serum or plasma low density lipoprotein (LDL) cholesterol measurement (mass/volume)Ordered By: Dr. Coleman on 03-24-2023 Cholesterol in LDL [Mass/Vol] 81 mg/dL 0-130 [facility] Serum or plasma urea nitroge n measurement (mass/volume)Ordered By: Dr. Coleman on 03-24-2023 Urea nitrogen [Mass/Vol] 17 mg/dL 7-18 [facility] Thin prep Papanicolaou smear with manual screeningOrdered By: Dr. Coleman on 03-24-2023 Thin prep Papanicolaou smear with manual screening 23 U/L 15-37 [facility] Thin prep Papanicolaou smear with manual screening 6 5-15 [facility] Absolute lymphocyte counton 09-17-2022 Lymphocytes Auto (Unsp spec) [#/Vol] 2.49 10*3/uL 0.83-4.51 [facility] Work Phone: Basophil percentageon 2021 Basophils/100 WBC (Bld) 1.1 % 0-1 [facility] Work Phone: Bilirubin [Mass/Vol] 0.60 mg/dL 0.20-1.00 [facility] Work Phone: Comment on above: For patients on eltr ombopag therapy, use of Dimension [place] TBIL is not recommended. Chloride [Moles/Vol] 107 mmol/L 98-107 [facility] Work Phone: Cholesterol [Mass/Vol] 174 mg/dL <200 [facility] Work Phone: Comment on above: <200 mg/dL Desirable 200-240 mg/dL Borderline >240 mg/dL High Risk Eosinophils/100 WBC (Bld) 8.1 % 0-5 [facility] Work Phone: Glucose [Mass/Vol] 95 mg/dL 74-106 [facility] Work Phone: Neutrophils (Bld) [#/Vol] 3.6 10*3/uL 2.0-7.7 [facility] Work Phone: Neutrophils/100 WBC (Bld) 47.9 % 47-70 [facility] Work Phone: Potassium [Moles/Vol] 3.7 mmol/L 3.5-5.1 [facility] Work Phone: Protein [Mass/Vol] 7.4 g/dL 6.4-8.2 [facility] Work Phone: Sodium [Moles/Vol] 140 mmol/L 136-145 [facility] Work Phone: Triglyceride [Mass/Vol] 188 mg/dL <199 [facility] Work Phone: Comment on above: The drugs N-Acetylcy steine and Metamizole may falsely depress this assay.Serum Triglycerides Reference Interval Normal <150 mg/dL Borderline high 150 - 199 mg/dL High 200 - 499 mg/dL Very High > or = 500 mg/dL WBC (Bld) [#/Vol] 7.5 10*3/uL 4.4-11.0 [facility] Work Phone: Blood erythrocytes count (nu mber/volume)on 09-17-2022 RBC (Bld) [#/Vol] 4.88 10*6/uL 4.2-5.4 [facility] Work Phone: Blood hemoglobin measurement (mass/volume)on 09-17-2022 Hemoglobin (Bld) [Mass/Vol] 14.9 g/dL 12.0-15.0 [facility] Work Phone: Blood lymphocytes/100 leukoc yteson 09-17-2022 Lymphocytes/100 WBC (Bld) 33.1 % 19-41 [facility] Work Phone: Blood monocytes/100 leukocyt eson 09-17-2022 Monocytes/100 WBC (Bld) 9.4 % 0-10 [facility] Work Phone: Blood platelet mean volumeon 09-17-2022 Platelet mean volume (Bld) [Entitic vol] 11.3 fL 6.2-12.0 [facility] Work Phone: Determination of erythrocyte mean corpuscular volume (MCV)on 09-17-2022 MCV (RBC) [Entitic vol] 92.2 fL 81-99 [facility] Work Phone: Hematocrit Auto (Bld) [Volum e fraction]on 09-17-2022 Hematocrit (Bld) [Volume fraction] 45.0 % 37-47 [facility] Work Phone: Laboratory - Chemistry and C hemistry - challengeon 09-17-2022 ALP [Catalytic activity/Vol] 76 U/L 45-117 [facility] Work Phone: ALT [Catalytic activity/Vol] 27 U/L 13-56 [facility] Work Phone: CO2 [Moles/Vol] 28.0 mmol/L 21.0-32.0 [facility] Work Phone: Globulin (S) [Mass/Vol] 3.8 g/dL 2.2-4.2 [facility] Work Phone: Urea nitrogen/Creatinine [Mass ratio] 18.4 mg/mg 10-20 [facility] Work Phone: Laboratory - Hematology and Cell countson 09-17-2022 Erythrocyte distribution width (RBC) [Entitic vol] 48.5 fL 35.1-43.9 [facility] Work Phone: Erythrocyte distribution width (RBC) [Ratio] 14.1 % 11.6-14.6 [facility] Work Phone: Immature granulocytes/100 WBC (Bld) 0.400 % 0.0-0.9 [facility] Work Phone: Comment on above: IG% - Immature Granu locytes (promyelocytes, myelocytes and metamyelocytes) > 1% indicates that a LEFT SHIFT is Present. MCH (RBC) [Entitic mass] 30.5 pg 27.0-32.0 [facility] Work Phone: Nucleated RBC/100 WBC (Bld) [Ratio] 0 % 0-5 [facility] Work Phone: MCHC Auto (RBC) [Mass/Vol]on 09-17-2022 MCHC (RBC) [Mass/Vol] 33.1 g/dL 32-36 [facility] Work Phone: No Panel Informationon 09-17 Estimated GFR (MDRD) Amer 94 mL/min >60 [facility] Work Phone: Comment on above: GFR Calc Estimated GFR (MDRD) Non-Af Amer 77 mL/min >60 [facility] Work Phone: Comment on above: Non- GFR Calc Vitamin D 25-Hydroxy 25.5 ng/mL [facility] Work Phone: Comment on above: Vitamin D 25(OH) Sta tus Range Deficiency <20 ng/mL (50nmol/L) Insufficiency 20 - 30 ng/mL (50 - 75 nmol/L) Sufficiency 30 - 100 ng/mL (75 - 250 nmol/L) Toxicity >100 ng/mL (>250 nmol/L) Platelets bldon 09-17-2022 Platelets (Bld) [#/Vol] 235 10*3/uL 150-450 [facility] Work Phone: Serum or plasma albumin balaji urement (mass/volume)on 09-17-2022 Albumin [Mass/Vol] 3.6 g/dL 3.2-5.0 [facility] Work Phone: Serum or plasma albumin/glob ulin mass ratioon 09-17-2022 Albumin/Globulin [Mass ratio] 0.9 {ratio} 0.9-2.4 [facility] Work Phone: Serum or plasma calcium balaji urement (mass/volume)on 09-17-2022 Calcium [Mass/Vol] 9.1 mg/dL 8.5-10.1 [facility] Work Phone: Serum or plasma cholesterol in HDL measurement (mass/volume)on 09-17-2022 Cholesterol in HDL [Mass/Vol] 52 mg/dL >40 [facility] Work Phone: Comment on above: The drugs N-Acetylcy steine and Metamizole may falsely depress this assay. Reference Range HDL <40 mg/dL Low HDL Cholesterol HDL >or= 60 mg/dL High HDL Cholesterol Serum or plasma cholesterol in VLDL measurement (mass/volume)on 09-17-2022 Cholesterol in VLDL [Mass/Vol] 38 mg/dL 5-40 [facility] Work Phone: Serum or plasma creatinine m easurement (mass/volume)on 09-17-2022 Creatinine [Mass/Vol] 0.76 mg/dL 0.55-1.02 [facility] Work Phone: Comment on above: The validity of the calculated GFR & GFRAA in patients over 70 years has not been determined. Clinical correlation is essential. Serum or plasma low density lipoprotein (LDL) cholesterol measurement (mass/volume)on 09-17-2022 Cholesterol in LDL [Mass/Vol] 84 mg/dL 0-130 [facility] Work Phone: Serum or plasma urea nitroge n measurement (mass/volume)on 09-17-2022 Urea nitrogen [Mass/Vol] 14 mg/dL 7-18 [facility] Work Phone: Thin prep Papanicolaou smear with manual screeningon 09-17-2022 Thin prep Papanicolaou smear with manual screening 22 U/L 15-37 [facility] Work Phone: Thin prep Papanicolaou smear with manual screening 5 5-15 [facility] Work Phone: Basophil percentageon 2021 Basophil percentage >100 SEEN /hpf 0-5 [facility] Work Phone: Bilirubin Test strip Ql (U)o n 07-29-2022 Bilirubin Ql (U) Negative Negative [facility] Work Phone: Ketones Test strip Ql (U)on 07-29-2022 Ketones Ql (U) 5 mg/dl Negative [facility] Work Phone: Laboratory - Chemistry and C hemistry - challengeon 07-29-2022 Bilirubin Ql (U) Negative [facility] Work Phone: Glucose Ql (U) Negative [facility] Work Phone: Ketones Ql (U) Small (15+) [facility] Work Phone: pH (U) 6.0 [pH] [facility] Work Phone: Specific gravity (U) [Rel density] 1.030 [facility] Work Phone: Urobilinogen (U) [Mass/Vol] Negative [facility] Work Phone: Laboratory - Hematology and Cell countson 07-29-2022 Hemoglobin Ql (U) Hemolyzed [facility] Work Phone: Laboratory - Specimen inform ationon 07-29-2022 Clarity (U) Cloudy [facility] Work Phone: Color (U) KEYANA [facility] Work Phone: Laboratory - Urinalysison Nitrite Ql (U) Negative [facility] Work Phone: Protein Ql (U) Negative [facility] Work Phone: Mucus LM Ql (Urine sed)on Mucus Ql (Urine sed) 0 SEEN /hpf [facility] Work Phone: Nitrite Test strip Ql (U)on 07-29-2022 Nitrite Ql (U) Negative Negative [facility] Work Phone: No Panel Informationon 07-29 Urine Leukocytes Positive [facility] Work Phone: Urine Non-Hemolyzed Blood Large [facility] Work Phone: Protein Test strip Ql (U)on 07-29-2022 Protein Ql (U) 100 mg/dl Negative [facility] Work Phone: Squamous epithelial cells de tection in urine sediment by light microscopyon 07-29-2022 Epithelial cells.squamous LM Ql (Urine sed) 0-5 SEEN /hpf 5-10 [facility] Work Phone: Urine blood detectionon RBC Ql (U) 250 /ul Negative [facility] Work Phone: RBC Ql (U) 50-100 SEEN /hpf 0-5 [facility] Work Phone: Urine clarityon 07-29-2022 Clarity (U) Cloudy Clear [facility] Work Phone: Urine color determinationon 07-29-2022 Color (U) Yellow Yellow [facility] Work Phone: Urine glucose detectionon Glucose Ql (U) Normal mg/dl Normal [facility] Work Phone: Urine leukocyte esterase det ection by dipstickon 07-29-2022 Leukocyte esterase Test strip Ql (U) 500 /ul Negative [facility] Work Phone: Urine pHon 07-29-2022 pH (U) 5.0 [pH] 5.0 - 8.0 [facility] Work Phone: Urine sediment bacteria coun t by microscopy (number/high power field)on 07-29-2022 Bacteria LM.HPF (Urine sed) [#/Area] 2 /[HPF] None Seen [facility] Work Phone: Urine specific gravity measu rementon 07-29-2022 Specific gravity (U) [Rel density] 1.025 1.002-1.030 [facility] Work Phone: Urobilinogen Auto test strip Ql (U)on 07-29-2022 Urobilinogen Ql (U) Normal mg/dl Normal [facility] Work Phone: Culture, urineon 03-13-2022 Bacteria identified Cx Nom (U) Presumptive E. coli [facility] Work Phone: Bacteria identified Cx Nom (U) Positive [facility] Work Phone: Culture, urine Bacteria identified Cx Nom (U) Escherichia coli [facility] Work Phone: Vital Signs Date Time Vital Sign Value Performing Clinician Faci lity 06-01-2025 15:36-0400 Diastolic blood pressure 76 mm[Hg] Dr. Jacquie Coleman MD Work Phone: [facility] 06-01-2025 15:36-0400 Heart rate 69 /min Dr. Jacquie Coleman MD Work Phone: [facility] 06-01-2025 15:36-0400 Systolic blood pressure 160 mm[Hg] Dr. Jacquie Coleman MD Work Phone: [facility] 06-01-2025 15:26-0400 Body height 157.[address] Jacquie Coleman MD Work Phone: [facility] 06-01-2025 15:26-0400 Body mass index (BMI) [Ratio] 31.4 kg/m2 Dr. Jacquie Coleman MD Work Phone: [facility] 06-01-2025 15:26-0400 Body weight 78.[address] Jacquie Coleman MD Work Phone: [facility] 06-01-2025 15:26-0400 Respiratory rate 16 /min Dr. Jacquie Coleman MD Work Phone: [facility] 06-01-2025 15:26-0400 SaO2% (BldA) [Mass fraction] 97 % Dr. Jacquie Coleman MD Work Phone: [facility] 05-30-2025 16:07-0400 Body temperature 97.8 [degF] Dr. Jacquie Coleman MD Work Phone: [facility] 05-30-2025 16:07-0400 Diastolic blood pressure 54 mm[Hg] Dr. Jacquie Coleman MD Work Phone: [facility] 05-30-2025 16:07-0400 Heart rate 55 /min Dr. Jacquie Coleman MD Work Phone: [facility] 05-30-2025 16:07-0400 Respiratory rate 15 /min Dr. Jacquie Coleman MD Work Phone: [facility] 05-30-2025 16:07-0400 SaO2% (BldA) [Mass fraction] 95 % Dr. Jacquie Coleman MD Work Phone: [facility] 05-30-2025 16:07-0400 Systolic blood pressure 111 mm[Hg] Dr. Jacquie Coleman MD Work Phone: [facility] 05-30-2025 14:58-0400 Inhaled oxygen flow rate 3 L/min Dr. Jacquie Coleman MD Work Phone: [facility] 05-30-2025 10:56-0400 Body height 157.[address] Jacquie Coleman MD Work Phone: [facility] 05-30-2025 10:56-0400 Body mass index (BMI) [Ratio] 30.4 kg/m2 Dr. Jacquie Coleman MD Work Phone: [facility] 05-30-2025 10:56-0400 Body weight 75.[address] Jacquie Coleman MD Work Phone: [facility] 05-05-2025 23:26-0400 Body temperature 98.1 [degF] Dr. Jacquie Coleman MD Work Phone: [facility] 05-05-2025 23:26-0400 Diastolic blood pressure 64 mm[Hg] Dr. Jacquie Coleman MD Work Phone: [facility] 05-05-2025 23:26-0400 Heart rate 79 /min Dr. Jacquie Coleman MD Work Phone: [facility] 05-05-2025 23:26-0400 Respiratory rate 18 /min Dr. Jacquie Coleman MD Work Phone: [facility] 05-05-2025 23:26-0400 SaO2% (BldA) [Mass fraction] 97 % Dr. Jacquie Coleman MD Work Phone: [facility] 05-05-2025 23:26-0400 Systolic blood pressure 122 mm[Hg] Dr. Jacquie Coleman MD Work Phone: [facility] 05-05-2025 22:36-0400 Inhaled oxygen flow rate 2 L/min Dr. Jacquie Coleman MD Work Phone: [facility] 05-05-2025 19:15-0400 Body height 157.[address] Jacquie Coleman MD Work Phone: [facility] 05-05-2025 19:15-0400 Body mass index (BMI) [Ratio] 31.8 kg/m2 Dr. Jacquie Coleman MD Work Phone: [facility] 05-05-2025 19:15-0400 Body weight 79.[address] Jacquie Coleman MD Work Phone: [facility] 03-25-2025 08:01-0400 Body mass index (BMI) [Ratio] 30.9 kg/m2 Dr. Jacquie Coleman MD Work Phone: [facility] 03-25-2025 08:01-0400 Body weight 76.[address] Jacquie Coleman MD Work Phone: [facility] 03-25-2025 08:01-0400 Diastolic blood pressure 77 mm[Hg] Dr. Jacquie Coleman MD Work Phone: [facility] 03-25-2025 08:01-0400 Heart rate 58 /min Dr. Jacquie Coleman MD Work Phone: [facility] 03-25-2025 08:01-0400 Respiratory rate 18 /min Dr. Jacquie Coleman MD Work Phone: [facility] 03-25-2025 08:01-0400 Systolic blood pressure 141 mm[Hg] Dr. Jacquie Coleman MD Work Phone: [facility] 03-18-2025 02:08-0400 Body temperature 98.2 [degF] Dr. Jacquie Coleman MD Work Phone: [facility] 03-18-2025 02:08-0400 Diastolic blood pressure 72 mm[Hg] Dr. Jacquie Coleman MD Work Phone: [facility] 03-18-2025 02:08-0400 Heart rate 86 /min Dr. Jacquie Coleman MD Work Phone: [facility] 03-18-2025 02:08-0400 Respiratory rate 18 /min Dr. Jacquie Coleman MD Work Phone: [facility] 03-18-2025 02:08-0400 SaO2% (BldA) [Mass fraction] 98 % Dr. Jacquie Coleman MD Work Phone: [facility] 03-18-2025 02:08-0400 Systolic blood pressure 144 mm[Hg] Dr. Jacquie Coleman MD Work Phone: [facility] 03-17-2025 23:23-0400 Body mass index (BMI) [Ratio] 32.3 kg/m2 Dr. Jacquie Coleman MD Work Phone: [facility] 03-17-2025 23:23-0400 Body weight 80.[address] Jacquie Coleman MD Work Phone: [facility] 03-17-2025 04:00-0400 Body temperature 98.2 [degF] Dr. Jacquie Coleman MD Work Phone: [facility] 03-17-2025 04:00-0400 Diastolic blood pressure 59 mm[Hg] Dr. Jacquie Coleman MD Work Phone: [facility] 03-17-2025 04:00-0400 Heart rate 74 /min Dr. Jacquie Coleman MD Work Phone: [facility] 03-17-2025 04:00-0400 Respiratory rate 18 /min Dr. Jacquie Coleman MD Work Phone: [facility] 03-17-2025 04:00-0400 SaO2% (BldA) [Mass fraction] 96 % Dr. Jacquie Coleman MD Work Phone: [facility] 03-17-2025 04:00-0400 Systolic blood pressure 107 mm[Hg] Dr. Jacquie Coleman MD Work Phone: [facility] 03-17-2025 02:45-0400 Inhaled oxygen flow rate 6 L/min Dr. Jacquie Coleman MD Work Phone: [facility] 03-17-2025 01:40-0400 Body height 157.[address] Jacquie Coleman MD Work Phone: [facility] 03-17-2025 01:40-0400 Body mass index (BMI) [Ratio] 31.8 kg/m2 Dr. Jacquie Coleman MD Work Phone: [facility] 03-17-2025 01:40-0400 Body weight 78.[address] Jacquie Coleman MD Work Phone: [facility] 02-23-2025 12:56-0400 Body height 157.[address] Jacquie Coleman MD Work Phone: [facility] 02-23-2025 12:56-0400 Body mass index (BMI) [Ratio] 31.1 kg/m2 Dr. Jacquie Coleman MD Work Phone: [facility] 02-23-2025 12:56-0400 Body weight 77.[address] Jacquie Coleman MD Work Phone: [facility] 02-23-2025 12:56-0400 Diastolic blood pressure 86 mm[Hg] Dr. Jacquie Coleman MD Work Phone: [facility] 02-23-2025 12:56-0400 Heart rate 89 /min Dr. Jacquie Coleman MD Work Phone: [facility] 02-23-2025 12:56-0400 Respiratory rate 16 /min Dr. Jacquie Coleman MD Work Phone: [facility] 02-23-2025 12:56-0400 SaO2% (BldA) [Mass fraction] 96 % Dr. Jacquie Coleman MD Work Phone: [facility] 02-23-2025 12:56-0400 Systolic blood pressure 156 mm[Hg] Dr. Jacquie Coleman MD Work Phone: [facility] 12-31-2024 14:58-0500 Body temperature 98 [degF] Dr. Jacquie Coleman MD Work Phone: [facility] 12-31-2024 14:58-0500 Diastolic blood pressure 57 mm[Hg] Dr. Jacquie Coleman MD Work Phone: [facility] 12-31-2024 14:58-0500 Heart rate 65 /min Dr. Jacquie Coleman MD Work Phone: [facility] 12-31-2024 14:58-0500 Respiratory rate 16 /min Dr. Jacquie Coleman MD Work Phone: [facility] 12-31-2024 14:58-0500 SaO2% (BldA) [Mass fraction] 95 % Dr. Jacquie Coleman MD Work Phone: [facility] 12-31-2024 14:58-0500 Systolic blood pressure 121 mm[Hg] Dr. Jacquie Coleman MD Work Phone: [facility] 12-31-2024 00:13-0500 Body mass index (BMI) [Ratio] 31.4 kg/m2 Dr. Jacquie Coleman MD Work Phone: [facility] 12-31-2024 00:13-0500 Body weight 78.[address] Jacquie Coleman MD Work Phone: [facility] 11-19-2023 19:31-0500 Diastolic blood pressure 66 mm[Hg] [facility] 11-19-2023 19:31-0500 Heart rate 87 /min [facility] 11-19-2023 19:31-0500 Respiratory rate 16 /min [facility] 11-19-2023 19:31-0500 SaO2% (BldA) [Mass fraction] 96 % [facility] 11-19-2023 19:31-0500 Systolic blood pressure 137 mm[Hg] [facility] 11-19-2023 16:01-0500 Body height 157.48 cm [facility] 11-19-2023 16:01-0500 Body mass index (BMI) [Ratio] 30.7 kg/m2 [facility] 11-19-2023 16:01-0500 Body temperature 97.3 [degF] [facility] 11-19-2023 16:01-0500 Body weight 76.1 kg [facility] 07-29-2022 13:21-0400 Body height 157.[address] Jacquie Coleman Work Phone: [facility] Work Phone: 07-29-2022 13:21-0400 Body mass index (BMI) [Ratio] 31.1 kg/m2 Dr. Jacquie Coleman Work Phone: [facility] Work Phone: 07-29-2022 13:21-0400 Body temperature 98.7 [degF] Dr. Jacquie Coleman Work Phone: [facility] Work Phone: 07-29-2022 13:21-0400 Body weight 77.[address] Jacquie Coleman Work Phone: [facility] Work Phone: 07-29-2022 13:21-0400 Diastolic blood pressure 64 mm[Hg] Dr. Jacquie Coleman Work Phone: [facility] Work Phone: 07-29-2022 13:21-0400 Heart rate 70 /min Dr. Jacquie Coleman Work Phone: [facility] Work Phone: 07-29-2022 13:21-0400 Respiratory rate 14 /min Dr. Jacquie Coleman Work Phone: [facility] Work Phone: 07-29-2022 13:21-0400 SaO2% (BldA) [Mass fraction] 98 % Dr. Jacquie Coleman Work Phone: [facility] Work Phone: 07-29-2022 13:21-0400 Systolic blood pressure 122 mm[Hg] Dr. Jacquie Coleman Work Phone: [facility] Work Phone: Encounters Encounter Date Encounter Type Care Provider Facility Start: 06-09-2025 End: 06-09-2025 [facility] Start: 06-09-2025 End: 06-09-[address] Jacquie Coleman MD Work Phone: [facility] Start: 06-01-2025 End: 06-01-2025 [facility]: Start: 06-01-2025 End: 06-01-[address] Jacquie Coleman MD Work Phone: -[facility] Start: 05-30-2025 End: 05-30-2025 Emergency department patient visit Dr. Jacquie Coleman MD Work Phone: -Emergency Department Work Phone: Start: 05-05-2025 End: 05-05-2025 Emergency department patient visit Dr. Jacquie Coleman MD Work Phone: -Emergency Department Work Phone: Start: 03-25-2025 End: 03-25-2025 Patient encounter procedure Brittney Ontiveros MT -[facility] Work Phone: Start: 03-25-2025 End: 03-25-2025 ambulatory Jacquie Jared [facility] Start: 03-17-2025 End: 03-18-2025 Emergency department patient visit Dr. Dwight Patricia DO -Emergency Department Work Phone: Start: 03-16-2025 End: 03-17-2025 Emergency department patient visit Dr. Jacquie Coleman MD Work Phone: -Emergency Department Work Phone: Start: 03-07-2025 ambulatory [facility] Facility: [facility] Start: 03-07-2025 Non-patient / Non-visit Dr. Felicitas CAN -[facility] Start: 03-07-2025 End: 03-07-[address] Jacquie Coleman MD Work Phone: [facility] Work Phone: Start: 03-07-2025 End: 03-07-[address] Jozef Pena MD -Cardiovascular Services Work Phone: Start: 03-07-2025 End: 03-07-2025 ambulatory Jacquie Jared Facility:[facility] Start: 02-23-2025 End: 02-23-[address] Jozef Pena MD -[facility] Work Phone: Start: 02-23-2025 End: 02-23-2025 ambulatory [facility] Facility:[facility] Start: 01-11-2025 End: 01-11-[address] Jacquie Coleman MD [facility] Start: 01-11-2025 End: 01-11-2025 ambulatory [facility] Facility:[facility] Start: 12-31-2024 Non-patient / Non-visit Dr. Elisabet Fishman MD -[facility] Work Phone: Start: 12-31-2024 ambulatory [facility] Facility: [facility] Start: 12-31-2024 Non-patient / Non-visit Dr. Felicitas CAN -[facility] Start: 12-30-2024 End: 12-31-2024 ambulatory [facility] Facility:[facility] Start: 12-30-2024 End: 12-31-2024 Evaluation and management of inpatient Dr. Elisabet Fishman MD -Progressive Care Unit Work Phone: Start: 06-15-2024 End: 06-15-2024 [facility] Facility:[facility] Start: 11-27-2023 End: 11-27-2023 ambulatory [facility] Work Phone: Start: 11-27-2023 End: 11-27-2023 Patient encounter procedure [facility] Start: 11-19-2023 End: 11-19-2023 Emergency department patient visit [facility]-Emergency Department Work Phone: Start: 09-22-2023 End: 09-22-2023 ambulatory [facility] Work Phone: Start: 09-22-2023 End: 09-22-2023 Patient encounter procedure [facility] Start: 03-24-2023 End: 03-24-2023 ambulatory [facility] Work Phone: Start: 03-24-2023 End: 03-24-2023 Patient encounter procedure [facility] Start: 09-17-2022 End: 09-17-[address] Jacquie Coleman Work Phone: [facility] Work Phone: Start: 09-17-2022 End: 09-17-[address] Jacquie Coleman Work Phone: [facility] Start: 07-29-2022 End: 07-29-[address] Jacquie Coleman Work Phone: [facility] Work Phone: Start: 07-29-2022 End: 07-29-[address] [facility] Start: 07-29-2022 End: 07-29-[address] Jacquie Coleman Work Phone: [facility] Start: 03-13-2022 End: 03-13-[address] Jacquie Coleman [facility] Start: 01-02-2022 End: 01-02-[address] Jacquie Coleman Work Phone: [facility]-Outpatient Breast Imaging Start: 12-24-2021 Non-patient / Non-visit Dr. Shiraz Coleman Work Phone: [facility] Start: 12-24-2021 End: 12-24-[address] Jacquie Coleman Work Phone: [facility]-Cardiovascula r Services Procedures Date Procedure Procedure Detail [...] Activity Detail Author Start: 08-24-2025 ambulatory Ambulatory Facility:[facility] Start: 06-09-2025 Evaluation of diagno stic study results [facility] Start: 05-30-2025 Oxygen therapy [facility] Start: 05-30-2025 End: 05-30-2025 [facility] Start: 05-30-2025 End: 05-30-2025 [facility] Start: 05-05-2025 [facility] Start: 05-05-2025 [facility] Start: 05-05-2025 [facility] Start: 03-25-2025 Evaluation of diagno stic study results [facility] Start: 03-18-2025 [facility] Start: 03-17-2025 End: 03-17-2025 [facility] Start: 03-17-2025 [facility] Start: 12-31-2024 Patient discharge [facility] Start: 12-31-2024 Following clinical p athway protocol [facility] Start: 12-31-2024 Assessment of risk o f venous thromboembolism [facility] Start: 12-31-2024 Insertion of cathete r into peripheral vein [facility] Start: 12-31-2024 Introduction of urin karlos catheter [facility] Start: 12-31-2024 Measuring intake and output [facility] Start: 12-31-2024 Oxygen therapy [facility] Start: 12-31-2024 Providing care accor ding to standard [facility] Start: 12-31-2024 Provision of activit y privileges [facility] Start: 12-31-2024 Referral to service [facility] Start: 12-31-2024 [facility] Start: 12-30-2024 Admission procedure [facility] Start: 11-19-2023 [facility] Patient Education [facility] Work Phone: Patient referral [facility] Work Phone: Troponin T.cardiac [Mass/volume] in Serum or Plasma by High sensitivity method [facility] Troponin T.cardiac [Mass/volume] in Serum or Plasma by High sensitivity method [facility] Payers Date Payer Category Payer Medicare [id number] 2024 Self-pay [id number] 2024 Unknown [id number] Unknown [id number] 2.16.8 [id number] Unknown [id number] 2.16.8 [id number] Unknown [id number] 2.16.8 [id number] Unknown [id number] 2.16.8 [id number] Unknown [id number] 2.16.8 [id number] Unknown [id number] 2.16.8 [id number] Unknown [id number] 2.16.8 40.1.474151.3.579.2.462 Unknown [id number] 2.16.8 40.1.338348.3.579.2.462 Unknown [id number] 2.16.8 40.1.394570.3.579.2.462 Unknown [id number] 2.16.8 40.1.694498.3.579.2.462 Unknown [id number] 2.16.8 40.1.965865.3.579.2.462 Unknown [id number] 2.16.8 [id number] Unknown [id number] 2.16.8 40.1.487407.3.579.2.462 Unknown [id number] 2.16.8 40.1.237553.3.579.2.462 Unknown [id number] 2.16.8 40.1.871400.3.579.2.462 Unknown [id number] 2.16.8 [id number] Unknown [id number] 2.16.8 [id number] Social History Date Type Detail Facility Start: 08-07-2021 End: 11-19-2023 Tobacco smoking status NHIS Unknown if ever smoked [facility] Start: 01-25-2020 None [facility] Start: 01-25-2020 Spouse/ Signif icant Other [facility] Start: 1940 Sex Assigned At Female [facility] Start: 12-30-2024 End: 05-30-2025 Tobacco smoking status NHIS Never smoked tobacco (finding) [facility] Start: 03-10-2025 End: 03-17-2025 Sex Female (finding) [facility] Goals Date Patient Goal Desired Activity /State Functional Status Date Assessment Result Facility 12-31-2024 Functional status Chair [facility] Work Phone: Mental Status Date Assessment Result Facility 05-30-2025 Cognitive function Awake;Alert;A ppropriate;Follow s Commands [facility] Work Phone: 05-30-2025 Cognitive function Arousable To Voice/Nam e [facility] Work Phone: 05-05-2025 Cognitive function Awake;Alert;A ppropriate;Follow s Commands [facility] Work Phone: 05-05-2025 Cognitive function Arousable To Voice/Nam e [facility] Work Phone: 03-17-2025 Cognitive function Level Of Cons ciousness Awake;Alert;Appropriate;Follow s Commands [facility] Work Phone: 03-17-2025 Cognitive function Awake;Alert;A ppropriate;Follow s Commands [facility] Work Phone: 03-17-2025 Cognitive function Arousable To Voice/Nam e [facility] Work Phone: 12-31-2024 Cognitive function Voice/Name [facility] Work Phone: Clinical Notes 11-19-2023 to 05-30-2025 Note Date & Type Note Facility 05-30-2025 Radiology Diagnostic study note [facility] Imaging Services [address] [place] [address] Chest PA and Lateral MR#: [id number] Acct: [id number] Name: AL LEWIS Rep #: [id number] : 1940 F 84 From: Pet er Peer DO PCP: Dr. Jacquie Coleman MD Status: PRE ER Study:Chest PA and Lateral Date of Exam: 05/30/25 Exam# [id number] Ordering Dr: Westley ,Ed P. PROCEDURE: CHEST PA AND LATERAL 05/30/2025 REASON FOR EXAM: CHEST PAIN TECHNIQUE: CHEST PA AND LATERAL COMPARISON: Chest radiographs May 05, 2025 FINDINGS: Hardware: None. Heart: Normal size. Mediastinum: Unremarkable contour Lungs: Clear Bones: No aggressive process RAD/Chest PA and Lateral IMPRESSION: Negative for acute process. No significant interval change. Reading Location: [facility] CC: Dr. Jacquie Coleman MD; ED PHYSICIAN PROVIDER ~ Hospitalist Medical Director: Signed [facility] 05-05-2025 Radiology Diagnostic study note [facility] Imaging Services [address] [place] [address] Chest PA and Lateral MR#: [id number] Acct: [id number] Name: AL LEWIS Rep #: [id number] : 1940 F 84 From: Radha Duarte MD PCP: Dr. Jacquie Coleman MD Status: REG ER Study:Chest PA and Lateral Date of Exam: 05/05/25 Exam# [id number] Ordering Dr: Dwight Gray DO PROCEDURE: CHEST [...] Lateral IMPRESSION: Stable mild cardiomegaly. Reading Location: [facility] CC: Dr. Dwight Patricia DO; Dr. Jacquie Coleman MD ~ Hospitalist Medical Director: Signed [facility] 02-23-2025 Evaluation note Diagnosis Onset Date Resolution Atrial fibrillation with RVR acute February 23, 2025 12:53pm Hypercholesterolemia chronic Apri l 2024 12:53pm Hypertension chronic February 23 025 12:53pm Atrial fibrillation with RVR acute March 25, 2025 9:14am Hypercholesterolemia chronic March 25, 2025 9:14am Hypertension chronic March 25 9:14am [facility] Work Phone: 1(286) 842-578704-02-2025 Evaluation note* Diagnosis Onset Date Resolution Status Admit Date Atrial fibrillation with RVR acute February 23, 2025 12:53pm Hypercholesterolemia chronic Apri l 2024 12:53pm Hypertension chronic February 23, 025 12:53pm Atrial fibrillation with RVR acute March 25, 2025 9:14am Hypercholesterolemia chronic March 25, 2025 9:14am Hypertension chronic March 25 9:14am PAF (paroxysmal atrial fibrillation) acute June 01, 2025 3:22pm Hypercholesterolemia chronic June 01, 2025 3:22pm Hypertension chronic June 01 3:22pm [facility] Work Phone: 1(524) 227-110402-07-2025 [facility] Medical Records Department [address] [place] [address] Discharge Summary 12/31/24 1724 MR#: [id number] Acct: [id number] Name: AL LEWIS Rep #: [id number] : 1940 84 From: Elisabet Fishman MD PCP: Dr. Jacquie Coleman MD Status:ADM KARLA Location: [place] [address] Providers Date of Admission: 12/30/24 Date of [...] Count 241, MPV 10.3, (more content not included)...[facility]02-07-2025 Evaluation note* Diagnosis Onset Date Resolution Status Admit Date Atrial fibrillation with RVR acute December 30, 2024 11:21pm Atrial fibrillation with RVR acute February 23, 2025 12:53pm Hypercholesterolemia chronic Apri l 2024 12:53pm Hypertension chronic February 23, 2 025 12:53pm [facility] Work Phone: 1(960) 502-918612-27-2023 Discharge summary Author Sebastian Meyer [facility] November 19, 2023 8:41pm Note Date/Time November 19, 2023 5:37pm [facility] Medical Records Department [address] [place] [address] Emergency Department Summary 11/19/23 MR#: [id number] Acct: [id number] Name: AL LEWIS ANN Rep #:[id number] : 1940 83 From: Sebastian Meyer MD [...] is onaspirin 81 mg, no blood thinners. [facility] <ART Rosenberg - Last Filed: 11/19/23 19:02> [facility] Medical History Actinic keratosis Bone fracture Cataracts, [...] Delivery Method Room Air Room Air MDM <ART Rosenberg - Last Filed: 11/19/23 19:02> MDM MDM Narrative Medical decision making narrative: Patient has [...] % (Auto) 56.9 Lymph % (Auto) 32.0 [place] % (Auto) 9.3 Eos % (Auto) 0.9 [...] Meyer MD - Last Filed: 11/19/23 20:41> [facility] Lab Data Labs: Laboratory Results - last 24 hr 11/19/23 17:25 WBC 9.6 RBC 3.86 L Hgb 11.5 L Hct 34.5 L MCV 89.4 MCH 29.8 MCHC 33.3 RDW Std Deviation 45.9 H RDW Coeff of Bob 14.2 Plt Count 240 MPV 10.1 Immature Gran % (Auto) 0.300 Neut % (Auto) 56.9 Lymph % (Auto) 32.0 [place] % (Auto) 9.3 Eos % (Auto) 0.9 [...] Ratio 0.9 Management Discussion w/another healthcare provider: Board Certified Orthodontist ([facility]) Treatment and Re-Evaluation Comments:: I [...] your Primary Care Provider. Call [facility] ([phone]) or report to the closest Emergency Room. Call 911 if necessary. 11/19/232040 <Electronically signed by Sebastian Meyer MD> Cosigner Signature (if applicable): 11/19/231901 <Electronically signed by Analy CORDOVA> CC: Dr. Jacquie Coleman MD; Rodolfo Friend, DO ~ Signed [facility] Work Phone: Evaluation noteNo assessment information available [facility] Work Phone: Evaluation note* Diagnosis Onset Date Resolution Status Cystitis acute [facility] Work Phone: Hospital Discharge instructions Additional Instructions Stop taking Aleve. Start taking pantoprazole twice daily. Call the GI office for follow-up appointment if any symptoms worsen come back to the ER. This includes increased volume of black stools, severe abdominal pain, chest pain, shortness of breath, dizziness or lightheadedness.[facility] Work Phone: Hospital Discharge instructions Additional Instructions Follow-up with cardiology. Return back to the ED if symptoms change or worsen. Continue your medications.[facility] Work Phone: Hospital Discharge instructionsAdditional Instructions Follow-up with cardiology. Start digoxin tomorrow and continue the same dose of diltiazem and metoprolol. Call cardiology office tomorrow to make an appointment. Return back to the ED if symptoms change or worsen.[facility] Work Phone: Chief Complaint and Reason for Visit Chief Complaint MURMUR, EPISODES OF LOSS OF LEG MUSCLE STRENGTH LEFT BREAST PAIN Chief Complaint CONCERN FOR UTI Reason for Visit Cystitis Chief Complaint GI BLEED Chief Complaint Admit Date PAF RVR December 30, 2024 1 1:21pm PAF RVR December 31, 2024 5 :24pm S/P [facility] 12/31 ([facility] ER) February 23, 2025 1 2:53pm CAD [...] RVR December 31, 2024 5 :24pm S/P [facility] 12/31 ([facility] ER) February 23, 2025 1 2:53pm CAD March 07, 2025 7:0 2am Coronary artery disease March 07, 2025 11:03am PALPITATIONS March 16, 2025 11: 59pm Chief Complaint Admit Date S/P [facility] 12/31 ([facility] ER) February 23, 2025 1 2:53pm CAD March 07, 2025 7:0 2am Coronary artery disease March 07, 2025 11:03am PALPITATIONS March 16, 2025 11: 59pm PALPITATIONS March 17, 2025 11: 20pm S/P [facility] 03/17March 25, 2025 9:14am palpitations May 05, 2025 7:13 pm Reason for Visit Admit Date Atrial fibrillation with RVR February 23, 2025 12:53pm Hypercholesterolemia February 23, 2025 12: 53pm Hypertension February 23, 2025 12:5 3pm Atrial fibrillation with RVR March 25 9:14am Hypercholesterolemia March 25, 2025 9:14a m Hypertension March 25, 2025 9:14am Chief Complaint Admit Date S/P [facility] 12/31 ([facility] ER) February 23, 2025 1 2:53pm CAD March 07, 2025 7:0 2am Coronary artery disease March 07, 2025 11:03am PALPITATIONS March 16, 2025 11: 59pm PALPITATIONS March 17, 2025 11: 20pm S/P [facility] 03/17March 25, 2025 9:14am palpitations May 05, 2025 7:13 pm palpitations May 30, 2025 10:56 am Chief Complaint Admit Date S/P [facility] 12/31 ([facility] ER) February 23, 2025 1 2:53pm CAD March 07, 2025 7:0 2am Coronary artery disease March 07, 2025 11:03am PALPITATIONS March 16, 2025 11: 59pm PALPITATIONS March 17, 2025 11: 20pm S/P [facility] 03/17March 25, 2025 9:14am palpitations May 05, 2025 7:13 pm palpitations May 30, 2025 10:56 am [facility]IB (CONSULT WITH ) June 01, 2025 3: 22pm Chief Complaint Admit Date S/P [facility] 12/31 ([facility] ER) February 23, 2025 1 2:53pm CAD March 07, 2025 7:0 2am Coronary artery disease March 07, 2025 11:03am PALPITATIONS March 16, 2025 11: 59pm PALPITATIONS March 17, 2025 11: 20pm S/P [facility] 03/17March 25, 2025 9:14am palpitations May 05, 2025 7:13 pm palpitations May 30, 2025 10:56 am AFIB (CONSULT WITH MH) June 01, 2025 3: 22pm 1 WK EKG/Amiodarone June 09, 2025 2:06 pm Reason for Visit Admit Date Atrial fibrillation with RVR February 23, 2025 12:53pm Hypercholesterolemia February 23, 2025 12: 53pm Hypertension February 23, 2025 12:5 3pm Atrial fibrillation with RVR March 25 9:14am Hypercholesterolemia March 25, 2025 9:14a m Hypertension March 25, 2025 9:14am PAF (paroxysmal atrial fibrillation) May 3:22pm Hypercholesterolemia June 01, 2025 3:22 pm Hypertension June 01, 2025 3:22p m Family History No Family History Records Found Relationship Condition Age at Onset Recorded Date/T shiela father Malignant neoplasm Unknown Hypertension Unknown Disorder of respiratory system Unknown mother Diabetes mellitus Unknown Epilepsy Unknown Cardiac disease Unknown Relationship Condition Age at Onset Recorded Date/T shiela father Malignant neoplasm Unknown Hypertension Unknown Disorder of respiratory system Unknown mother Diabetes mellitus Unknown Epilepsy Unknown Cardiac disease Unknown brother Cerebrovascular accident (CVA) Unknown Advance Directives No Advanced Directives Records Found Advance Directive Response Recorded Date/ Time Living Will Yes January 25, 2020 2:21pm Power of Agricultural Economics Professor Yes January 24 2:21pm Advance Directive Response Recorded Date/ Time Living Will No November 19, 2 023 5:31pm Power of Agricultural Economics Professor No November 19, 2023 5:31pm Advance Directive Response Recorded Date/ Time Living Will Yes December 31 1:13am Do you have a Healthcare Power of Agricultural Economics Professor? Yes December 31, 2024 1:13am Name of Medical Power of Agricultural Economics Professor Son December 31, 2024 1:13am Advance Directive Response Recorded Date/ Time Living Will Yes December 31 1:13am Do you have a Healthcare Power of Agricultural Economics Professor? Yes December 31, 2024 1:13am Name of Medical Power of Agricultural Economics Professor Son December 31, 2024 1:13am Do you have a Healthcare Power of Agricultural Economics Professor? Yes March 17, 2025 1:40am Advance Directive Response Recorded Date/ Time Do you have a Healthcare Power of Agricultural Economics Professor? Yes March 17, 2025 1:40am Do you have a Healthcare Power of Agricultural Economics Professor? Yes March 17, 2025 11:31pm Do you have a Healthcare Power of Agricultural Economics Professor? No May 05, 2025 7:25pm Advance Directive Response Recorded Date/ Time Do you have a Healthcare Power of Agricultural Economics Professor? No May 30, 2025 11:56am Do you have a Healthcare Power of Agricultural Economics Professor? Yes March 17, 2025 1:40am Do you have a Healthcare Power of Agricultural Economics Professor? Yes March 17, 2025 11:31pm Do you have a Healthcare Power of Agricultural Economics Professor? No May 05, 2025 7:25pm Summary Purpose [...] End: March 17, 2025 Dr. Omid Foley , Attending Provider Active Start: March 16, 2025 [...] May 30, 2025 End: May 30, 2025 Team Status: Inactive Member Role/Relationship Status Dates Dr. Jacquie Coleman MD Primary Care Provider Active Start: May 30, 2025 End: May 30, 2025 Dr. Dwight Klusty-Tamica , DO Attending Provider Activ e Start: May 30, 2025 End: May 30, 2025 Dr. Dwight Patricia , Emergency Provider Activ e Start: May 30, 2025 End: May 30, 2025 Team Status: Inactive Member Role/Relationship Status Dates Dr. Jacquie Coleman MD Primary Care Provider Active Start: June 01, 2025 End: June 01, 2025 Dr. Jacquie Coleman MD Referring Provider Active Start: June 01, 2025 End: June 01, 2025 Brittney CORDOVA PA Attending Provider Active Start: June 01, 2025 End: June 01, 2025 Team Status: Inactive Member Role/Relationship Status Dates Dr. Jacquie Coleman MD Primary Care Provider Active Start: June 09, 2025 End: June 09, 2025 Dr. Jacquie Coleman MD Referring Provider Active Start: June 09, 2025 End: June 09, 2025 ART Clements Attending Provider Active Start: June 09, 2025 End: June 09, 2025 INFORMATION SOURCE (unrecogn ized section and content) DATE CREATED AUTHOR 06/12/2025 [facility] FOR RECORDS PERTAINING TO PATIENTS WHO [...] BE BASED ON THE PRIMARY CLINICAL RECORDS. [employer] provides no warranty or guarantee of the accuracy or completeness of information in this document.
[2025-06-30 22:21] LABS: Magnesium 2.2 mg/dL (1.5-2.2)
[2025-06-30 22:33] LABS: Squamous Epithelial Cells - UA 0-5 SEEN /hpf (5-10)
--- NOTE | 2025-06-30 22:38 | ECHOD_ITS ---
Reason For Study Reason For Study: NSTEMI Procedure This was a 2D Doppler, Color Flow transthoracic echocardiogram. Exam performed portable in patient room. Left Ventricle Normal LV size. The left ventricular ejection fraction is 65 %. Stage 1 diastolic dysfunction. No regional wall motion abnormalities noted. Right Ventricle Normal RV size. Normal systolic function. Atria The left atrium is mildly enlarged. Normal right atrium. Mitral Valve There is mild to moderate mitral annular calcification. Mild (1+) eccentric mitral valve insufficiency. Tricuspid Valve Normal tricuspid valve. Mild to moderate (1-2+) tricuspid valve insufficiency. Pulmonary artery systolic pressure is 47 mmHg. Pulmonic Valve Normal pulmonic valve. Great Vessels Mildly calcified aortic root. The pulmonary artery is normal size. Inferior vena cava collapse with sniff. Pericardium/Pleural No pericardial effusion. MMode/2D Measurements & Calculations LVIDd: 3.8 cm IVSd: 1.3 cm LVOT diam: 2.0 cm LVIDs: 2.1 cm LVPWd: 0.94 cm LVOT area: 3.1 cm2 RVDd: 3.7 cm FS: 43.6 % Ao root diam: 3.0 cm LAV(MOD-bp): 55.7 ml LVAd ap4: 18.1 cm2 LAV(MOD-bp) Indexed: 31.5 ml/m2 LVLd ap4: 6.1 cm LAV(MOD-sp2): 43.3 ml EDV(MOD-sp4): 45.3 ml LAV(MOD-sp4): 70.7 ml EDV(sp4-el): 45.4 ml LVAs ap4: 9.0 cm2 LVLs ap4: 5.3 cm ESV(MOD-sp4): 14.1 ml ESV(sp4-el): 12.9 ml EF(MOD-sp4): 68.8 % EF(sp4-el): 71.6 % SV(MOD-sp4): 31.1 ml SV(sp4-el): 32.5 ml LA A4 area: 22.4 cm2 SI(MOD-sp4): 17.6 ml/m2 LA dimension(2D): 4.0 cm RA A4 area: 9.9 cm2 TAPSE: 2.2 cm Doppler Measurements & Calculations MV E max jarod: 107.1 cm/sec Lat Peak E' Jarod: 5.5 cm/sec Med Peak E' Jarod: 5.7 cm/sec MV A max jarod: 124.0 cm/sec E/E' lat: 19.4 E/E' med: 18.6 MV E/A: 0.86 Ao V2 max: 219.9 cm/sec LV V1 max: 156.4 cm/sec SV(LVOT): 119.4 ml Ao max P.3 mmHg LV V1 max P.8 mmHg Ao V2 mean: 142.0 cm/sec LV V1 mean P.4 mmHg Ao mean P.5 mmHg LV V1 mean: 110.1 cm/sec Ao V2 VTI: 51.0 cm LV V1 VTI: 39.1 cm AV (velocity ratio): 0.77 CHENCHO(I,D): 2.3 cm2 CHENCHO(V,D): 2.2 cm2 PA V2 max: 75.9 cm/sec TR max jarod: 332.3 cm/sec TR max P.2 mmHg ECHO/Echo Complete Interpretation Summary Normal LV size. The left ventricular ejection fraction is 65 %. Stage 1 diastolic dysfunction. Pulmonary artery systolic pressure is 47 mmHg. There is mild to moderate mitral annular calcification. Mild (1+) eccentric mitral valve insufficiency. Ordering Physician: Edda Langston Referring Physician: Jacquie Coleman Performed By: Monie Diaz RDCS
[2025-06-30 23:56] LABS: Troponin T High Sensitivity 302 ng/L (<=14)
[2025-07-01] VITALS (19 sets, daily range): BP systolic 98–141; BP diastolic 50–94; PULSE 50–66; RESP 14–18; TEMP 36.6–37.1; O2SAT 94–98; BMI 30.6
[2025-07-01] MEDS: 0.9% Normal Saline (1000mL) 1,000 ML 75 ML IV (00:12)
[2025-07-01] MEDS: 0.9% Saline Lock 10 ML Syringe IV (00:12)
[2025-07-01 06:12] LABS: Hematocrit 41.9 % (37-47); Hemoglobin 14.2 g/dL (12.0-15.0); Immature Granulocytes Count 0.020 X10^3/uL (0.0-0.0); Mean Corp Hgb Conc 33.9 g/dL (32-36); Mean Corpuscular Volume 91.3 fL (81-99); Mean Platelet Vol. 10.1 fl (6.2-12.0); NRBC Flagged by Analyzer 0 % (0-5); Platelet Count 192 K/mm3 (150-450); RBC Distribution Width CV 14.3 % (11.6-14.6); RBC Distribution Width SD 48.0 fl (35.1-43.9); Red Blood Count 4.59 M/mm3 (4.2-5.4); White Blood Count 6.9 K/mm3 (4.4-11.0)
[2025-07-01 06:43] LABS: AST(SGOT) 26 U/L (<=31); Alanine Aminotransfer ALT/SGPT 20 U/L (<=34); Albumin, Serum 3.8 g/dL (3.4-4.8); Alkaline Phosphatase 90 U/L (35-104); Anion Gap 13 (5-15); BUN 14 mg/dL (4-19); BUN/Creat Ratio 16.8 RATIO (10-20); Calcium,Total 9.0 mg/dL (7.6-11.0); Carbon Dioxide 21.3 mmol/L (21.0-32.0); Chloride 104 mmol/L (98-108); Cholesterol 181 mg/dL (<=200); Estimated Creatinine Clearance 48.16 ml/min (50-250); Globulin 3.0 g/dL (2.2-4.2); Glucose 98 mg/dL (70-99); Low Density Lipoprotein Calc. 87 mg/dL; Potassium 3.8 mmol/L (3.3-5.1); Triglycerides 189 mg/dL; Very Low Density Lipoprotein 38 mg/dL (5-40); cholesterol:hdl ratio screen 3.23
[2025-07-01 07:12] LABS: Troponin T High Sensitivity 176 ng/L (<=14)
[2025-07-01] MEDS: Aspirin E.C. 81 MG Tablet PO (11:18)
--- NOTE | 2025-07-01 11:20 | CASEMGMT ---
RN CM Face to Face with patient for initial transition planning/care coordination assessment. RN CM introduced self and role at [facility]. Patient lying in bed, alert and oriented. Patient willing to participate in assessment and is able to answer all questions appropriately. Care providers, pharmacy, and demographics verified. PCP: Jared Specialists: DALE, chartered wealth manager; Preferred Pharmacy[facility] Insurance: [facility], MMO Prescription Benefit: yes Living Will/HPOA: yes, nora Vazquez LNOK: son, granddaughter Living Arrangements: Patient lives alone in a condo with 2 steps and railing to enter the home. Patient states she is independent at home. Transportation: Self, son DME/HHC: Patient has cane, walker, built in shower benches at home. No previous HHC or SNF. Patient wishes to discharge home, denies need for home health at this time. Patient states he has no further needs or concerns at this time. CM to follow for discharge planning needs that may arise. Disposition Plan: Patient to discharge home with family support and follow-up plans in place. Chandrika CALLAWAY, RN, CM
--- NOTE | 2025-07-01 14:04 | PN_ITS ---
Subjective Subjective Patient seen and examined with her nurse by bedside. She complained of a mild headache. She denied any chest pain, palpitations, dizziness, nausea or vomiting. Review of systems otherwise negative. She is noted to be bradycardic but is otherwise hemodynamically stable. Objective Data Objective Data Vital Signs: Vital Signs Temp Pulse Resp BP Pulse Ox O2 Del Method 97.8 F 50 L 18 129/62 H 94 Room Air 07/01/25 13:45 07/01/25 13:45 07/01/25 13:45 07/01/25 13:45 07/01/25 13:45 07/01/25 13:45 Oxygen Delivery Method Room Air Weight: 167 lb 8.821 oz Body Mass Index (BMI) 30.6 Intake & Output: Intake and Output for Last 24 Hours 06/29/25 06/30/25 07/01/25 23:59 23:59 23:59 Intake Total 100 / 100 Balance 100 / 100 Lab / Micro Data 07/01/25 05:54 07/01/25 05:54 Labs: Laboratory Results - last 24 hr 06/30/25 17:20: WBC 7.0, RBC 4.96, Hgb 15.1 H, Hct 45.5, MCV 91.7, MCH 30.4, MCHC 33.2, RDW Std Deviation 48.1 H, RDW Coeff of Bob 14.3, Plt Count 214, MPV 10.6, Immature Gran % (Auto) 0.400, Neut % (Auto) 43.3 L, Lymph % (Auto) 45.5 H, [place] % (Auto) 8.5, Eos % (Auto) 1.6, Baso % (Auto) 0.7, Absolute Neuts (auto) 3.0, Absolute Lymphs (auto) 3.20, Nucleated RBC % 0, Sodium 137, Potassium 3.9, Chloride 101, Carbon Dioxide 22.3, Anion Gap 14, BUN 15, Creatinine 0.91, Estim Creat Clear Calc 45.17 L, Est GFR (MDRD) Non-Af 62, BUN/Creatinine Ratio 16.1, G lucose 100 H, Calcium 9.3, Troponin T High Sens 16 H D 06/30/25 20:00: Magnesium 2.2, Troponin T Hi Sens 2 Hr 165 H* 06/30/25 20:12: Urine Color Straw, Urine Clarity Clear, Urine pH 6.5, Ur Specific [place] 1.010, Urine Protein Negative, Urine Glucose (UA) Normal, Urine Ketones Negative, Urine Occult Blood Negative, Urine Nitrite Negative, Urine Bilirubin Negative, Urine Urobilinogen Normal, Ur Leukocyte Esterase Negative, Urine RBC 0 SEEN, Urine WBC 0 SEEN, Ur Squamous Epith Cells 0-5 SEEN, Urine Bacteria 0 SEEN, Hyaline Casts 0-5 SEEN, Urine Mucus 0 SEEN 06/30/25 23:11: Troponin T High Sens 302 H* D 07/01/25 05:54: WBC 6.9, RBC 4.59, Hgb 14.2, Hct 41.9, MCV 91.3, MCH 30.9, MCHC 33.9, RDW Std Deviation 48.0 H, RDW Coeff of Bob 14.3, Plt Count 192, MPV 10.1, Immature Gran % (Auto) 0.300, Neut % (Auto) 58.3, Lymph % (Auto) 30.7, [place] % (Auto) 8.3, Eos % (Auto) 2.0, Baso % (Auto) 0.4, Absolute Neuts (auto) 4.0, Absolute Lymphs (auto) 2.12, Nucleated RBC % 0, Sodium 139, Potassium 3.8, Chloride 104, Carbon Dioxide 21.3, Anion Gap 13, BUN 14, Creatinine 0.83, Estim Creat Clear Calc 48.16 L, Est GFR (MDRD) Non-Af 69, BUN/Creatinine Ratio 16.8, Glucose 98, Calcium 9.0, Total Bilirubin 0.38, AST 26, ALT 20, Alkaline Phosphatase 90, Troponin T High Sens 176 H* D, Total Protein 6.8, Albumin 3.8, Globulin 3.0, Albumin/Globulin Ratio 1.3, Triglycerides 189, Cholesterol 181, LDL Cholesterol, Calc 87, VLDL Cholesterol 38, HDL Cholesterol 56, Cholesterol/HDL Ratio 3.23 Radiography Diagnostic Testing: Radiology Impression Chest X-Ray 06/30/25 17:45 IMPRESSION: NO ACUTE FINDINGS. Reading Location: [facility] Physical Exam Const alert, oriented x3 and no apparent distress General Appearance: cooperative HEENT normocephalic, head/scalp atraumatic, moist oral mucous membranes and oropharynx normal Eyes EOMs intact bilaterally Neck no lymphadenopathy and supple Lymph Lymphatic: no lymphedema noted Resp normal respiratory effort, normal air movement and clear to auscultation bilaterally Cardio regular rhythm, S1 normal heart sound, S2 normal heart sound and no murmurs Cardio Narrative: Bradycardic GI normal to inspection, nondistended, normoactive bowel sounds, soft to palpation, non-tender and non-distended Extremity normal capillary refill, no clubbing, cyanosis or edema and no calf tenderness General Extremity: no tenderness to palpation of joints or extremities Skin General Skin Exam: no breakdown Neuro CN's II-XII intact bilaterally and no focal motor deficits Motor Exam: strength 5/5 throughout Psych thought process normal and cooperative Appearance: appropriate Assessment & Plan Assessment/Plan (1) Non-ST elevation LA (NSTEMI): (2) PAF (paroxysmal atrial fibrillation): PLAN: Plan #Non-STEMI * Patient came in with a complaint of tachycardia was found to be in A-fib with RVR and also had elevated troponins. Initial troponin was only 16 but delta troponin had gone up to 302 then came down to 176.. * EKG showed no acute ST changes. Chest x-ray showed no acute cardiopulmonary pathology. * Eliquis is held. On aspirin and statin as well as metoprolol. * 2D echo ordered. * For cardiac cath today per cardiology. #Hypertension: On metoprolol and Cardizem as well as Lasix. IV hydralazine as needed #Hyperlipidemia: On statin #Paroxysmal A-fib: On amiodarone and metoprolol as well as Cardizem. Eliquis on hold for his cardiac cath today. Will resume this evening #GERD: On PPI #DVT prophylaxis: On Eliquis as above Charges/Coding Visit Charges Inpatient E&M: 00216 Subs Hosp L2
--- NOTE | 2025-07-01 14:47 | PCI.CARDCATH ---
PCI Cardiac Cath Report PCI Report: Procedure performed; Left heart catheterization 1. Moderate sedation 2. Selective left coronary angiography 3. Selective right coronary angiography 4. Measurement of the EDP 5. Pullback pressure, from mid LV to the aorta 6. Placement of TR band to close the right radial artery arteriotomy site. Preprocedure diagnosis 84-year-old patient with history of hypertension, hyperlipidemia, CKD Has paroxysmal atrial fibrillation history of GERD Presented with symptoms of fatigue had A-fib with RVR Started on amiodarone IV converted to normal sinus rhythm. Has been on anticoagulation last dose was taken last evening around 530 And patient has been previously on diltiazem as well as digoxin she continued to have recurrent episodes of A-fib requiring multiple synchronized cardioversion. Currently she is in sinus rhythm on amiodarone as well as on beta-hill metoprolol. She has mild elevation of cardiac biomarkers with high sensitive troponin in addition she had symptoms of chest pain described as a left lower side chest pain. She had echocardiogram which showed LV function is preserved with mild aortic stenosis. Consent; Risks and benefits of the procedure explained detail informed consent obtained and placed in the chart. Diagnostic catheter using the [address] 1. 6 Q[place] sheath placed in the right radial artery A cocktail of verapamil, heparin as well as the nitroglycerin was given through the sheath. 2. 5 Qatari JL 3.5 3. 5 Q[place]ari JR4. Procedure in detail patient brought to the [address] in fasting state Right radial artery area prepped and draped in regular sterile fashion. Proceed with 5 Qatari AL 3 5 advancing of [place] cannulated the left main without difficulty multiple views of the left coronary system obtained including ANDORRAN SILVERMAN cranial and caudal views Following this we exchanged for 5 Q[place]ari JR4 advanced to the ascending aorta placing the LV measurement of LVEDP obtained and a pullback pressure recorded. Then the same catheter was used to cannulate the right coronary ostium and multiple views of the right coronary system were obtained. Following this all angiograms we used were reviewed. Hemodynamic LVEDP measuring 40 mmHg No systolic gradient across aortic valve. Coronary angiography; 1. Left main is normal angiographically bifurcating into LAD and left circumflex. 2. Left anterior descending artery normal large vessel reach all the way to the apex with a bundle septal branches and prominent there is diagonal branch. Angiographically the left anterior descending artery is normal 3. Left circumflex artery moderate to large in size and normal angiographically 4. RCA is large dominant and normal angiographically. Conclusion and recommendations; 84-year-old patient with history of paroxysmal atrial fibrillation admitted with A-fib with RVR started amiodarone IV and converted to normal sinus rhythm Has mild elevation of cardiac biomarkers and underwent a evaluation by cardiac cath which showed normal coronary arteries. Further evaluation by echocardiogram showed LV function preserved with mild aortic stenosis. From cardiac standpoint with recommend to resume the anticoagulation which is Eliquis based on her renal function. And to continue on amiodarone as well as metoprolol and to follow-up with her primary policy issue clerk for continuation of cardiac care No complication in the [address]. Florentino Heath MD,[facility]ACC,[facility] bingo attendant
--- NOTE | 2025-07-01 14:54 | PCM.CONS.C ---
Assessment & Plan Assessment/Plan (1) PAF (paroxysmal atrial fibrillation): (2) CKD (chronic kidney disease), stage III: (3) HLD (hyperlipidemia): (4) Hypertension: (5) Cardiac murmur: (6) Non-ST elevation MS (NSTEMI): PLAN: Cardiac care plan; 84-year-old patient admitted through the ED complaining of fatigue generalized weakness evaluated by EKG which showed A-fib with RVR Subsequent evaluation in the hospital with cardiac markers showed elevated troponins. Complaining of left lower chest pain. Patient has multiple medical comorbidities With hypertension Hyperlipidemia GERD Known history of paroxysmal atrial fibrillation. Based on her clinical presentation she had an echocardiogram which showed LV function preserved with mild aortic stenosis She underwent cardiac catheterization today Approach was right radial artery approach She has normal coronary arteries. Review all her current medication which include anticoagulation with apixaban in addition to antiarrhythmic with amiodarone and beta-hill metoprolol. Will continue current medical treatment Patient to follow-up with primary computerized mill mill recorder for continuation of cardiac care. And for management of paroxysmal A-fib. Patient has a recurrent synchronized cardioversion in the past Florentino Heath MD,[facility] manufacturing supervisor 2nd shift HPI Consult Data Date of Consult: 07/01/25 HPI Narrative Reason for Consultation: A-fib RVR/elevated troponin with chest pain HPI Narrative: AL LEWIS, is a 84 F who presents [facility] Medical History PAF (paroxysmal atrial fibrillation) Palpitations Cardiac murmur Vitamin D deficiency Atrial fibrillation with RVR Obesity GERD (gastroesophageal reflux disease) CKD (chronic kidney disease), stage III HLD (hyperlipidemia) Hypertension Cataracts, bilateral Home Medications ?Medication ?Instructions ?Recorded ?Last Taken ?Type simvastatin 10 mg tablet 10 mg PO QHS hyperlipidemia 06/24/16 06/30/25 17:00 History 10 mg pantoprazole 40 mg tablet,delayed 40 mg PO DAILY ulcer prevention 12/30/24 06/30/25 17:00 History release (Protonix) 40 mg apixaban 5 mg tablet (Eliquis) 5 mg PO BID #60 tabs 12/31/24 06/30/25 17:00 Rx 5 mg sennosides 8.6 mg tablet (Senokot) 8.6 mg PO DAILY constipation 12/31/24 06/30/25 17:00 History 8.6 mg metoprolol tartrate 25 mg tablet 25 mg PO BID #180 tabs 03/21/25 06/30/25 17:00 Rx 25 mg amiodarone 200 mg tablet 200 mg PO QDAY #30 tabs 06/01/25 06/30/25 08:00 Rx 200 mg potassium chloride 10 mEq 10 meq PO DAILY with the lasix 06/01/25 06/30/25 17:00 History tablet,extended release 10 mEq furosemide 20 mg tablet (Lasix) 20 mg PO DAILY edema 06/30/25 06/30/25 17:00 History 20 mg Allergy/AdvReac Type Severity Reaction Status Date / Time morphine Allergy Anaphylaxis Verified 06/30/25 17:10 niacin Allergy Rash Verified 06/30/25 17:10 procaine HCl (From Novocain) Allergy Anaphylaxis Verified 06/30/25 17:10 tetracycline Allergy Rash Verified 06/30/25 17:10 Family History Father Cancer Hypertension Respiratory disease Mother Diabetes Epilepsy Heart disease Brother CVA (cerebral vascular accident) Surgical History History of cataract surgery History of appendectomy History of total hysterectomy Social History household members: none Smoking Status: Never smoker alcohol intake: never substance use type: does not use additional social history: Does Take Aspirin Does Not Take Ibuprofen Physical Exam Cardio Cardio Narrative: Patient seen and evaluated at bedside along with the nursing staff Review of the cardiac telemetry showed normal sinus rhythm Cardiac exam S1-S2 is regular She had ejection systolic murmur heard in the aortic valve area No diastolic murmur Chest exam is clear auscultation bilateral Examination lower extremity no lower extremity edema. Risk Stratification Risk Stratification Applicable: No Objective Data Vital Signs: Vital Signs Temp Pulse Resp BP Pulse Ox O2 Del Method 97.8 F 50 L 18 129/62 H 94 Room Air 07/01/25 13:45 07/01/25 13:45 07/01/25 13:45 07/01/25 13:45 07/01/25 13:45 07/01/25 13:45 Oxygen Delivery Method Room Air Weight: 167 lb 8.821 oz Body Mass Index (BMI) 30.6 Intake & Output: Intake and Output for Last 24 Hours 06/29/25 06/30/25 07/01/25 23:59 23:59 23:59 Intake Total 100 / 100 Balance 100 / 100 Lab / Micro Data 07/01/25 05:54 07/01/25 05:54 Labs: Laboratory Results - last 24 hr 06/30/25 17:20: WBC 7.0, RBC 4.96, Hgb 15.1 H, Hct 45.5, MCV 91.7, MCH 30.4, MCHC 33.2, RDW Std Deviation 48.1 H, RDW Coeff of Bob 14.3, Plt Count 214, MPV 10.6, Immature Gran % (Auto) 0.400, Neut % (Auto) 43.3 L, Lymph % (Auto) 45.5 H, [place] % (Auto) 8.5, Eos % (Auto) 1.6, Baso % (Auto) 0.7, Absolute Neuts (auto) 3.0, Absolute Lymphs (auto) 3.20, Nucleated RBC % 0, Sodium 137, Potassium 3.9, Chloride 101, Carbon Dioxide 22.3, Anion Gap 14, BUN 15, Creatinine 0.91, Estim Creat Clear Calc 45.17 L, Est GFR (MDRD) Non-Af 62, BUN/Creatinine Ratio 16.1, Glucose 100 H, Calcium 9.3, Troponin T High Sens 16 H D 06/30/25 20:00: Magnesium 2.2, Troponin T Hi Sens 2 Hr 165 H* 06/30/25 20:12: Urine Color Straw, Urine Clarity Clear, Urine pH 6.5, Ur Specific [place] 1.010, Urine Protein Negative, Urine Glucose (UA) Normal, Urine Ketones Negative, Urine Occult Blood Negative, Urine Nitrite Negative, Urine Bilirubin Negative, Urine Urobilinogen Normal, Ur Leukocyte Esterase Negative, Urine RBC 0 SEEN, Urine WBC 0 SEEN, Ur Squamous Epith Cells 0-5 SEEN, Urine Bacteria 0 SEEN, Hyaline Casts 0-5 SEEN, Urine Mucus 0 SEEN 06/30/25 23:11: Troponin T High Sens 302 H* D 07/01/25 05:54: WBC 6.9, RBC 4.59, Hgb 14.2, Hct 41.9, MCV 91.3, MCH 30.9, MCHC 33.9, RDW Std Deviation 48.0 H, RDW Coeff of Bob 14.3, Plt Count 192, MPV 10.1, Immature Gran % (Auto) 0.300, Neut % (Auto) 58.3, Lymph % (Auto) 30.7, [place] % (Auto) 8.3, Eos % (Auto) 2.0, Baso % (Auto) 0.4, Absolute Neuts (auto) 4.0, Absolute Lymphs (auto) 2.12, Nucleated RBC % 0, Sodium 139, Potassium 3.8, Chloride 104, Carbon Dioxide 21.3, Anion Gap 13, BUN 14, Creatinine 0.83, Estim Creat Clear Calc 48.16 L, Est GFR (MDRD) Non-Af 69, BUN/Creatinine Ratio 16.8, Glucose 98, Calcium 9.0, Total Bilirubin 0.38, AST 26, ALT 20, Alkaline Phosphatase 90, Troponin T High Sens 176 H* D, Total Protein 6.8, Albumin 3.8, Globulin 3.0, Albumin/Globulin Ratio 1.3, Triglycerides 189, Cholesterol 181, LDL Cholesterol, Calc 87, VLDL Cholesterol 38, HDL Cholesterol 56, Cholesterol/HDL Ratio 3.23 Cardiology Labs/Tests 06/30/25 17:20: WBC 7.0, RBC 4.96, Hgb 15.1 H, Hct 45.5, MCV 91.7, MCH 30.4, MCHC 33.2, Plt Count 214, MPV 10.6, Immature Gran % (Auto) 0.400, Neut % (Auto) 43.3 L, Lymph % (Auto) 45.5 H, [place] % (Auto) 8.5, Eos % (Auto) 1.6, Baso % (Auto) 0.7, Absolute Neuts (auto) 3.0, Nucleated RBC % 0, Sodium 137, Potassium 3.9, Chloride 101, Carbon Dioxide 22.3, Anion Gap 14, BUN 15, Creatinine 0.91, Est GFR (MDRD) Non-Af 62, BUN/Creatinine Ratio 16.1, Glucose 100 H, Calcium 9.3 06/30/25 20:00: Magnesium 2.2 06/30/25 20:12: Urine Color Straw, Urine Clarity Clear, Urine pH 6.5, Ur Specific [place] 1.010, Urine Protein Negative, Urine Glucose (UA) Normal, Urine Ketones Negative, Urine Occult Blood Negative, Urine Nitrite Negative, Urine Bilirubin Negative, Urine Urobilinogen Normal, Ur Leukocyte Esterase Negative, Urine RBC 0 SEEN, Urine WBC 0 SEEN 07/01/25 05:54: WBC 6.9, RBC 4.59, Hgb 14.2, Hct 41.9, MCV 91.3, MCH 30.9, MCHC 33.9, Plt Count 192, MPV 10.1, Immature Gran % (Auto) 0.300, Neut % (Auto) 58.3, Lymph % (Auto) 30.7, [place] % (Auto) 8.3, Eos % (Auto) 2.0, Baso % (Auto) 0.4, Absolute Neuts (auto) 4.0, Nucleated RBC % 0, Sodium 139, Potassium 3.8, Chloride 104, Carbon Dioxide 21.3, Anion Gap 13, BUN 14, Creatinine 0.83, Est GFR (MDRD) Non-Af 69, BUN/Creatinine Ratio 16.8, Glucose 98, Calcium 9.0, Total Bilirubin 0.38, Triglycerides 189, Cholesterol 181, VLDL Cholesterol 38, HDL Cholesterol 56, Cholesterol/HDL Ratio 3.23 Rhythm: EKG: ECHO: Stress Test: Cardiac Cath: PCI: CT Surgery: Holter monitor: EPS: PPM: CXR: Chest CT Scan: Radiography Diagnostic Testing: Radiology Impression Chest X-Ray 06/30/25 17:45 IMPRESSION: NO ACUTE FINDINGS. Reading Location: [id number]
[2025-07-01] MEDS: Senna Tablet 1 TABLET PO (17:31)
[2025-07-01] MEDS: Potassium Chloride Oral Tablet 10 MEQ PO (17:32)
[2025-07-02 03:00] VITALS: PULSE 50
[2025-07-02 03:12] VITALS: BMI 31.0
[2025-07-02 03:38] VITALS: BP 118/59; PULSE 55; RESP 14; TEMP 36.4; O2SAT 96
[2025-07-02 06:34] LABS: Hematocrit 40.0 % (37-47); Hemoglobin 13.4 g/dL (12.0-15.0); Immature Granulocytes Count 0.020 X10^3/uL (0.0-0.0); Mean Corp Hgb Conc 33.5 g/dL (32-36); Mean Corpuscular Volume 91.7 fL (81-99); Mean Platelet Vol. 10.3 fl (6.2-12.0); NRBC Flagged by Analyzer 0 % (0-5); Platelet Count 186 K/mm3 (150-450); RBC Distribution Width CV 14.6 % (11.6-14.6); RBC Distribution Width SD 49.6 fl (35.1-43.9); Red Blood Count 4.36 M/mm3 (4.2-5.4); White Blood Count 6.8 K/mm3 (4.4-11.0)
[2025-07-02 06:53] LABS: Anion Gap 10 (5-15); BUN 12 mg/dL (4-19); BUN/Creat Ratio 13.5 RATIO (10-20); Calcium,Total 9.3 mg/dL (7.6-11.0); Carbon Dioxide 26.8 mmol/L (21.0-32.0); Chloride 104 mmol/L (98-108); Estimated Creatinine Clearance 44.71 ml/min (50-250); Glucose 92 mg/dL (70-99); Potassium 3.9 mmol/L (3.3-5.1)
[2025-07-02 06:54] VITALS: O2SAT 95
[2025-07-02 09:24] VITALS: BP 160/81; PULSE 71; RESP 17; TEMP 36.4; O2SAT 95
[2025-07-02 09:31] VITALS: PULSE 71
[2025-07-02] MEDS: Aspirin E.C. 81 MG Tablet PO (09:31)
--- NOTE | 2025-07-02 14:55 | DCINST_ITS ---
Discharge Instructions DC O2, CPAP, BIPAP needs Home O2 Discharge instructions: No Dressing / Incision Discharge Activity: Return to Normal Activity Weight Bearing Status: Weight bearing as tolerated Dressing / Incision Call your doctor if you observe: Fever of 101 or Higher, Shortness of breath, Dizziness, Swelling in the ankles and Chest pain Follow Up Care Test Results: Test results from this visit will be discussed in further detail at your follow- up appointment, if applicable. Discharge Plan Admission Admit Date/Time: 06/30/25 21:34 Primary Reason for Your Visit: paroxysmal afib, elevated troponin Attending Provider: Elisabet Fishman Primary Care Provider: Jacquie Coleman Consulting Providers: Marley Matta; Edda Langston Instructions Patient Instructions: AFib Dc Additional Instructions / Restrictions: follow up with your wellness guide in [place] in July as scheduled to be evaluated for ablation. Discharge Orders/Prescriptions Prescriptions: Continued potassium chloride 10 mEq tablet extended release 10 meq PO DAILY amiodarone 200 mg tablet 200 mg PO QDAY Qty: 30 11RF simvastatin 10 MG tablet 10 mg PO QHS pantoprazole [Protonix] 40 mg tablet,delayed release (DR/EC) 40 mg PO DAILY sennosides [Senokot] 8.6 mg tablet 8.6 mg PO DAILY Eliquis 5 mg Tablet 5 mg PO BID Qty: 60 2RF furosemide [Lasix] 20 mg tablet 20 mg PO DAILY metoprolol tartrate 25 mg tablet 25 mg PO BID Qty: 180 3RF Referrals / Follow Up: Jacquie Coleman MD [Primary Care Provider] - Within 1 Week Brittney Ontiveros PA [Med Staff - [facility] Practice Prof] - Within 1 Week Disposition Disposition (needs filled in before D/C Order can be placed): Home, Self Care
--- NOTE | 2025-07-02 14:59 | PCM.DC.SUM ---
Providers Date of Admission: 06/30/25 Date of Discharge: 07/02/25 Primary Care Physician: Dr. Jacquie Coleman MD Consultations 06/30/25 22:38 Consult: Cardiology Routine Consulting Provider: Marley Matta Reason for Consult: NSTEMI EMERGENT Consult: No MD Notified: Yes Date Notified: 06/30/25 Time Notified: 21:35 Method of Notification: Text Reason For Visit: NSTEMI Diagnosis Discharge Diagnosis (1) PAF (paroxysmal atrial fibrillation): Status: Acute Code(s): I48.0 - Paroxysmal atrial fibrillation (2) CKD (chronic kidney disease), stage III: Status: Chronic Code(s): N18.30 - Chronic kidney disease, stage 3 unspecified (3) HLD (hyperlipidemia): Status: Acute Code(s): E78.5 - Hyperlipidemia, unspecified (4) Hypertension: Status: Chronic Code(s): I10 - Essential (primary) hypertension (5) Cardiac murmur: Status: Acute Code(s): R01.1 - Cardiac murmur, unspecified (6) Non-ST elevation [place] (NSTEMI): Status: Acute Code(s): I21.4 - Non-ST elevation (NSTEMI) myocardial infarction Plan #Non-STEMI Patient came in with a complaint of tachycardia was found to be in A-fib with RVR and also had elevated troponins. Initial troponin was only 16 but delta troponin had gone up to 302 then came down to 176.. EKG showed no acute ST changes. Chest x-ray showed no acute cardiopulmonary pathology. Eliquis is held. On aspirin and statin as well as metoprolol. 2D echo ordered. For cardiac cath today per cardiology. #Hypertension: On metoprolol and Cardizem as well as Lasix. IV hydralazine as needed #Hyperlipidemia: On statin #Paroxysmal A-fib: On amiodarone and metoprolol as well as Cardizem. Eliquis on hold for his cardiac cath today. Will resume this evening #GERD: On PPI #DVT prophylaxis: On Eliquis as above Medications at Discharge Home Medications simvastatin 10 mg tablet 10 mg PO QHS hyperlipidemia 06/24/16 pantoprazole 40 mg tablet,delayed release (Protonix) 40 mg PO DAILY ulcer prevention 12/30/24 apixaban 5 mg tablet (Eliquis) 5 mg PO BID #60 tabs 12/31/24 sennosides 8.6 mg tablet (Senokot) 8.6 mg PO DAILY constipation 12/31/24 metoprolol tartrate 25 mg tablet 25 mg PO BID #180 tabs 03/21/25 amiodarone 200 mg tablet 200 mg PO QDAY #30 tabs 06/01/25 potassium chloride 10 mEq tablet,extended release 10 meq PO DAILY with the lasix 06/01/25 furosemide 20 mg tablet (Lasix) 20 mg PO DAILY edema 06/30/25 Hospital Course Operations None Procedures Cardiac catheterization Summary of Care Provided Minutes Spent on Discharge: 42 Hospital Course: Patient is an 84-year-old female with a past medical history as outlined including paroxysmal A-fib was admitted through the ED on 06/30/2025 with a complaint of generalized headache the entire day of admission. She said her heart rate had been racing and she also had elevated blood pressure so she decided to come into the ED due to her concerns for A-fib with RVR. She said she had a headache when she went into A-fib with RVR. She had been compliant with her Eliquis and metoprolol. She says she had previously been on Cardizem and digoxin but these were discontinued due to fluctuations in her heart rate. She had undergone cardioversion in the past though had not succeeded. She had also recently been started on amiodarone and followed with the PA in [place] cardiology office. On admission her heart rate was vacillating from high levels down to as low as 55. Initial troponin was 16 and delta troponin was 65. Chest x-ray showed no acute Cardiopulmonary pathology and EKG showed sinus rhythm with left anterior fascicular block. She was admitted and managed for non-STEMI and placed on aspirin and high intensity statin. Cardiology was consulted. She had cardiac cath on 07/01/2025 which showed normal coronaries. She remained stable and was discharged home on 07/02/2025. I spoke to Dr. Willard the archivist political history to clarify which medications he wanted her to go on. He stated he could be discharged on p.o. metoprolol 25 mg twice daily and p.o. amiodarone 200 mg daily which she was already on. She is to continue with her Xarelto and is to follow-up with her primary care doctor and archivist political history within 1 to 2 weeks. Patient was also scheduled to follow-up with her director in [place] in July and Dr. Heath counseled that patient should keep this appointment to be evaluated for ablation. Patient seen and examined prior to discharge. She had no complaints. She pressed worry about the medications she was on and wanted clarification about which ones she should continue taking. Review of systems otherwise negative. Labs and vitals reviewed. Home medication reviewed and reconciled. Physical Exam Const alert, oriented x3 and no apparent distress General Appearance: cooperative, comfortable and well kempt Orientation / Consciousness: awake HEENT normocephalic, head/scalp atraumatic, hearing grossly normal bilaterally, moist oral mucous membranes and oropharynx normal Mouth: oral and palatal mucosa normal Eyes EOMs intact bilaterally and conjunctivae normal Neck no lymphadenopathy and supple Lymph Lymphatic: no lymphedema noted Resp normal respiratory effort, normal air movement and clear to auscultation bilaterally Cardio regular rhythm, S1 normal heart sound, S2 normal heart sound and no murmurs Cardio Narrative: Bradycardic GI normal to inspection, nondistended, normoactive bowel sounds, soft to palpation, non-tender and non-distended Extremity normal to inspection, full ROM, normal capillary refill, no clubbing, cyanosis or edema and no calf tenderness General Extremity: no tenderness to palpation of joints or extremities Skin no rashes or lesions noted General Skin Exam: no breakdown Neuro oriented x3, CN's II-XII intact bilaterally, moves all extremities and no focal motor deficits Sensorium / Orientation: awake and alert Motor Exam: strength 5/5 throughout Psych thought process normal and cooperative Appearance: appropriate Weight / BMI Weight Weight: 169 lb 12.095 oz Body Mass Index (BMI) 31.0 ABG / Lab / Microbiology Data 07/02/25 05:51 07/02/25 05:51 Laboratory: Laboratory Results - last 24 hr 07/02/25 05:51: WBC 6.8, RBC 4.36, Hgb 13.4, Hct 40.0, MCV 91.7, MCH 30.7, MCHC 33.5, RDW Std Deviation 49.6 H, RDW Coeff of Bob 14.6, Plt Count 186, MPV 10.3, Immature Gran % (Auto) 0.300, Neut % (Auto) 59.2, Lymph % (Auto) 28.8, Sanders % (Auto) 8.6, Eos % (Auto) 2.5, Baso % (Auto) 0.6, Absolute Neuts (auto) 4.0, Absolute Lymphs (auto) 1.95, Nucleated RBC % 0, Sodium 141, Potassium 3.9, Chloride 104, Carbon Dioxide 26.8, Anion Gap 10, BUN 12, Creatinine 0.90, Estim Creat Clear Calc 44.71 L, Est GFR (MDRD) Non-Af 63, BUN/Creatinine Ratio 13.5, Glucose 92, Calcium 9.3 D/C Instructions Discharge Activity: Return to Normal Activity Weight Bearing Status: Weight bearing as tolerated Call your doctor if you observe: Fever of 101 or Higher, Shortness of breath, Dizziness, Swelling in the ankles and Chest pain DC O2, CPAP, BIPAP Needs Home O2 Discharge instructions: No Meaningful Use Info Meaningful Use Meaningful Use Diagnoses (Choose all that apply): AMI AMI/Post PCI/Angioplasty Aspirin given w/in 24hrs of arrival?: No Reason no aspirin w/in 24hrs of arrival?: Drug Interaction ASA at discharge?: No Reason ASA not ordered:: Drug Interaction Statins at discharge?: Yes Gerardo/ARB at discharge?: No Reason Gerardo/ARB not ordered:: Not indicated Beta Shadi at discharge?: Yes Done w/ Acute [place] measure.: Yes Documented LVEF (%): 70 Discharge Plan Admission Admit Date/Time: 06/30/25 21:34 Primary Reason for Your Visit: paroxysmal afib, elevated troponin Attending Provider: Elisabet Fishman Primary Care Provider: Jacquie Coleman Consulting Providers: Marley Matta; Edda Langston Instructions Patient Instructions: AFib Dc Additional Instructions / Restrictions: follow up with your director in [place] in July as scheduled to be evaluated for ablation. Discharge Orders/Prescriptions Prescriptions: Continued potassium chloride 10 mEq tablet extended release 10 meq PO DAILY amiodarone 200 mg tablet 200 mg PO QDAY Qty: 30 11RF simvastatin 10 MG tablet 10 mg PO QHS pantoprazole [Protonix] 40 mg tablet,delayed release (DR/EC) 40 mg PO DAILY sennosides [Senokot] 8.6 mg tablet 8.6 mg PO DAILY Eliquis 5 mg Tablet 5 mg PO BID Qty: 60 2RF furosemide [Lasix] 20 mg tablet 20 mg PO DAILY metoprolol tartrate 25 mg tablet 25 mg PO BID Qty: 180 3RF Referrals / Follow Up: Jacquie Coleman MD [Primary Care Provider] - Within 1 Week Brittney Ontiveros PA [Med Staff - [facility]] - Within 1 Week Disposition Disposition (needs filled in before D/C Order can be placed): Home, Self Care Charges/Coding Visit Charges Inpatient E&M: 39438 Disch Hosp >30min
[2025-07-02 15:20] VITALS: BP 138/56; PULSE 57; RESP 17; TEMP 36.5; O2SAT 96
== END 2025-07-02 16:20 | disposition home or self-care (01) | DRG 282 ==
LOC: ED 21:37 → PCU 21:52
PROVIDERS: Physician Assistant; Admitting Provider Family Medicine; Emergency Provider Surgery; PCP Family Medicine; Visit Provider Student in an Organized Health Care Education/Training Program
DX: I21.4 Non-ST elevation (NSTEMI) myocardial infarction (principal); E66.9 Obesity, unspecified; Z66 Do not resuscitate; I12.9 Hypertensive chronic kidney disease with stage 1 through stage 4 chronic kidney disease, or unspecified chronic kidney disease; I48.0 Paroxysmal atrial fibrillation; N18.2 Chronic kidney disease, stage 2 (mild); E78.5 Hyperlipidemia, unspecified; K21.9 Gastro-esophageal reflux disease without esophagitis; Z68.32 Body mass index [BMI] 32.0-32.9, adult; Z79.01 Long term (current) use of anticoagulants; Z79.899 Other long term (current) drug therapy
CPT/HCPCS: 36415; 71046; 80048; 80053; 80061; 81001; 83735; 84484; 85025; 93005; 93306; 93454; 94668; 97802; 99152; 99153; 99283; Q9967; A4216; C1769; C1894